=== PATIENT | female | born 1995 | race Caucasian/White ===

== ENCOUNTER → 2017-12-04 20:13 | Outpatient (REF) | payer OTHER, SELFPAY | LOC: LAB 20:13 | PROVIDERS: Visit Provider Nurse Practitioner Family ==

== ENCOUNTER → 2018-01-20 08:54 | Outpatient (CLI) | payer OTHER, SELFPAY ==
[2018-01-20 09:25] LABS: Basophils % 0.3 % (0.1-2.0); Eosinophils # 0.1 K/mm3 (0.0-0.4); Eosinophils % 1.3 % (0.1-12.0); Hematocrit 41.1 % (37.0-47.0); Hemoglobin 13.7 g/dL (12.2-16.2); Lymphocytes # 2.5 K/mm3 (0.7-4.5); Lymphocytes % 36.1 K/mm3 (10-50); Mean Corpuscular HGB Conc 33.4 g/dL (31.8-35.4); Mean Corpuscular Hemoglobin 29.4 pg (27.0-31.2); Mean Corpuscular Volume 87.9 fl (81-99); Mean Platelet Volume 8.8 fl (7.4-10.4); Monocytes # 0.4 K/mm3 (0.1-1.0); Monocytes % 5.9 % (1.7-9.3); Neutrophils % 56.5 % (37.0-80.0); Platelet Count 247 K/mm3 (142-424); Red Blood Count 4.67 M/mm3 (4.20-5.40); Red Cell Distribution Width 12.8 % (11.5-17.5)
[2018-01-20 10:21] LABS: HCG Qualitative, Serum Negative (Negative)
[2018-01-20 11:04] LABS: Alanine Aminotransferase 32 U/L (12-78); Albumin Level 3.8 gm/dL (3.4-5.0); Alkaline Phosphatase 80 U/L (46-116); Amylase 48 U/L (25-125); Anion Gap 12.3 mEq/L (5-15); Aspartate Amino Transferase 17 U/L (15-37); Bilirubin,Total 0.5 mg/dL (0.2-1.0); Blood Urea Nitrogen 8 mg/dL (7-18); Calcium 9.4 mg/dL (8.5-10.1); Carbon Dioxide 29 mmol/L (21.0-32.0); Chloride 101 mmol/L (98-107); Cholesterol 181 mg/dL (140-200); Creatinine,Serum 0.69 mg/dL (0.55-1.02); Estimated Glomerular Filt Rate 108 ml/min (>60); GFR (African American) 131 ML/MIN (>60); Globulin 3.7 gm/dl (1.3-3.2); Glucose 86 mg/dL (74-106); HDL Cholesterol 60 mg/dL (29-89); LDL Cholesterol 105 mg/dL (0-130); Lipase 96 u/L (73-393); Potassium 4.3 mmoL/L (3.5-5.1); Sodium 138 mmol/L (136-145); T4 (Thyroxine) 11.3 ug/dl (5.4-10.6); Thyroid Stimulating Hormone 2.03 uIU/ml (0.516-4.13); Total Protein,Serum 7.5 gm/dL (6.4-8.2); Triglycerides 79 mg/dL (30-200); VLDL Cholesterol 16 mg/dL (0-40)
[2018-01-21 15:48] LABS: Vitamin D 25 Hydroxy 37.8 ng/mL (30.0-100.0)
[2018-01-22 15:33] LABS: H. pylori Breath Test Negative (Negative)
== END ==
PROVIDERS: PCP Physician Assistant; Visit Provider Physician Assistant
DX: R10.13 Epigastric pain (principal)
CPT/HCPCS: 36415; 80053; 80061; 82150; 82652; 83013; 83690; 84436; 84443; 84703; 85025

== ENCOUNTER → 2018-04-13 08:53 | Outpatient (REF) | payer OTHER, SELFPAY ==
[2018-04-13 14:08] LABS: Basophils % 0.3 % (0.1-2.0); Eosinophils # 0.1 K/mm3 (0.0-0.4); Eosinophils % 1.3 % (0.1-12.0); Hematocrit 42.8 % (37.0-47.0); Hemoglobin 13.8 g/dL (12.2-16.2); Lymphocytes # 1.3 K/mm3 (0.7-4.5); Lymphocytes % 22.3 K/mm3 (10-50); Mean Corpuscular HGB Conc 32.2 g/dL (31.8-35.4); Mean Corpuscular Hemoglobin 27.5 pg (27.0-31.2); Mean Corpuscular Volume 85.5 fl (81-99); Mean Platelet Volume 9.4 fl (7.4-10.4); Monocytes # 0.2 K/mm3 (0.1-1.0); Neutrophils # 4.1 K/mm3 (1.8-7.8); Platelet Count 222 K/mm3 (142-424); Red Cell Distribution Width 13.5 % (11.5-17.5); White Blood Count 5.7 K/mm3 (4.5-13.0)
[2018-04-13 14:22] LABS: Alanine Aminotransferase 33 U/L (12-78); Albumin Level 3.7 gm/dL (3.4-5.0); Albumin/Globulin Ratio 0.9 (1.1-1.8); Alkaline Phosphatase 73 U/L (46-116); Anion Gap 15.9 mEq/L (5-15); Aspartate Amino Transferase 20 U/L (15-37); Bilirubin,Total 0.4 mg/dL (0.2-1.0); Blood Urea Nitrogen 11 mg/dL (7-18); Calcium 9.5 mg/dL (8.5-10.1); Carbon Dioxide 24 mmol/L (21.0-32.0); Chloride 104 mmol/L (98-107); Chol/HDL Ratio 4.1 (1-3.5); Cholesterol 183 mg/dL (140-200); Creatinine,Serum 0.75 mg/dL (0.55-1.02); Estimated Glomerular Filt Rate 99 ml/min (>60); GFR (African American) 119 ML/MIN (>60); Globulin 4.1 gm/dl (1.3-3.2); Glucose 75 mg/dL (74-106); HDL Cholesterol 45 mg/dL (29-89); LDL Cholesterol 117 mg/dL (0-130); Potassium 3.9 mmoL/L (3.5-5.1); Sodium 140 mmol/L (136-145); T4 (Thyroxine) 13.1 ug/dl (5.4-10.6); Thyroid Stimulating Hormone 2.25 uIU/ml (0.516-4.13); Total Protein,Serum 7.8 gm/dL (6.4-8.2); Triglycerides 106 mg/dL (30-200); VLDL Cholesterol 21 mg/dL (0-40)
[2018-04-14 12:51] LABS: Vitamin D 25 Hydroxy 46.7 ng/mL (30.0-100.0)
== END ==
LOC: LAB 08:53
PROVIDERS: Visit Provider Physician Assistant
DX: N89.8 Other specified noninflammatory disorders of vagina (principal); R35.0 Frequency of micturition
CPT/HCPCS: 80053; 80061; 82652; 84436; 84443; 85025; 87086

== ENCOUNTER → 2018-04-16 13:34 | Outpatient (REF) | payer OTHER, SELFPAY | LOC: LAB 13:34 | PROVIDERS: Visit Provider Physician Assistant | DX: R30.0 Dysuria (principal) | CPT/HCPCS: 87086; 87186 ==

== ENCOUNTER → 2018-04-16 13:50 | Outpatient (CLI) | payer OTHER, SELFPAY | PROVIDERS: Visit Provider Physician Assistant | DX: R30.0 Dysuria (principal) ==

== ENCOUNTER 2018-06-19 14:00 | Outpatient (RCR) | payer OTHER, SELFPAY | END 2018-06-19 14:01 | disposition home or self-care (01) | LOC: PT 14:00 | PROVIDERS: PCP Physician Assistant; Visit Provider Nurse Practitioner Family | DX: M25.571 Pain in right ankle and joints of right foot (principal); M25.572 Pain in left ankle and joints of left foot | CPT/HCPCS: 97010; 97014; 97033; 97035; 97110; 97140; 97163; G0283 ==

== ENCOUNTER → 2018-06-22 10:47 | Outpatient (REF) | payer OTHER, SELFPAY ==
[2018-06-22 14:12] LABS: Alanine Aminotransferase 35 U/L (12-78); Albumin Level 3.7 gm/dL (3.4-5.0); Alkaline Phosphatase 71 U/L (46-116); Anion Gap 12.1 mEq/L (5-15); Aspartate Amino Transferase 13 U/L (15-37); Bilirubin,Total 0.5 mg/dL (0.2-1.0); Blood Urea Nitrogen 8 mg/dL (7-18); C-Reactive Protein 1.4 mg/L (0.0-0.9); Calcium 9.1 mg/dL (8.5-10.1); Carbon Dioxide 29 mmol/L (21.0-32.0); Chloride 105 mmol/L (98-107); Creatinine,Serum 0.72 mg/dL (0.55-1.02); Estimated Glomerular Filt Rate 103 ml/min (>60); GFR (African American) 125 ML/MIN (>60); Globulin 3.7 gm/dl (1.3-3.2); Glucose 84 mg/dL (74-106); Potassium 4.1 mmoL/L (3.5-5.1); Sodium 142 mmol/L (136-145); Total Protein,Serum 7.4 gm/dL (6.4-8.2)
[2018-06-22 14:18] LABS: Basophils % 0.3 % (0.1-2.0); Eosinophils % 0.6 % (0.1-12.0); Hematocrit 39.6 % (37.0-47.0); Hemoglobin 13.2 g/dL (12.2-16.2); Lymphocytes % 15.9 K/mm3 (10-50); Mean Corpuscular HGB Conc 33.4 g/dL (31.8-35.4); Mean Corpuscular Hemoglobin 29.1 pg (27.0-31.2); Mean Corpuscular Volume 87.1 fl (81-99); Mean Platelet Volume 8.8 fl (7.4-10.4); Monocytes # 0.3 K/mm3 (0.1-1.0); Neutrophils # 5.1 K/mm3 (1.8-7.8); Neutrophils % 79.1 % (37.0-80.0); Platelet Count 231 K/mm3 (142-424); Red Blood Count 4.55 M/mm3 (4.20-5.40); White Blood Count 6.5 K/mm3 (4.5-13.0)
[2018-06-22 15:12] LABS: Erythrocyte Sedimentation Rate 30 mm/hr (0-20)
[2018-06-24 13:22] LABS: Anti-Jo-1 <0.2 AI (0.0-0.9); Anti-Smith Antibody <0.2 AI (0.0-0.9); Antichromatin Antibodies <0.2 AI (0.0-0.9); Antiscleroderma-70 Antibodies <0.2 AI (0.0-0.9); RNP Antibodies <0.2 AI (0.0-0.9); Sjogren's Anti-SS-A <0.2 AI (0.0-0.9); Sjogren's Anti-SS-B <0.2 AI (0.0-0.9)
[2018-06-24 14:52] LABS: Anti-Centromere B Antibodies <0.2 AI (0.0-0.9); Anti-DNA (DS) Ab Qn 1 IU/mL (0-9); RA Latex Turbid. <10.0 IU/mL (0.0-13.9)
[2018-06-25 06:40] LABS: Anti-Cyclic Citrullinated Pept 7 units (0-19)
== END ==
LOC: LAB 10:47
PROVIDERS: Visit Provider Physician Assistant
DX: M25.571 Pain in right ankle and joints of right foot (principal); M25.572 Pain in left ankle and joints of left foot; J02.9 Acute pharyngitis, unspecified
CPT/HCPCS: 80053; 85025; 85651; 86140; 86200; 86225; 86235; 86431

== ENCOUNTER → 2018-09-07 09:21 | Outpatient (CLI) | payer OTHER, SELFPAY ==
--- NOTE | 2018-09-07 09:23 | XR_ITS ---
XR ankle wt bearing RT min 3V HISTORY: ITS.REASON: pain and swelling ORDERING PHYSICIAN: Odilia Parker DPM PATIENT AGE: 22 years Comparison: 05/15/2018 FINDINGS: No fracture or dislocation. No lytic or blastic change. There is normal mineralization.. The joint spaces are well-preserved. No significant degenerative/arthritic changes. No erosive changes evident. IMPRESSION: Negative ankle, no acute finding
--- NOTE | 2018-09-07 09:23 | XR_ITS ---
XR ankle wt bearing LT min 3V HISTORY: ITS.REASON: pain and swelling ORDERING PHYSICIAN: Odilia Parker DPM PATIENT AGE: 22 years Comparison: None FINDINGS: No fracture or dislocation. No lytic or blastic change. There is normal mineralization.. The joint spaces are well-preserved. No significant degenerative/arthritic changes. No erosive changes evident. IMPRESSION: Negative ankle, no acute finding
--- NOTE | 2018-09-07 09:23 | XR_ITS ---
XR foot wt bearing LT 3V HISTORY: Pain and swelling ITS.REASON: pain ORDERING PHYSICIAN: Odilia Parker DPM PATIENT AGE: 22 years COMPARISON: None FINDINGS: No fracture or dislocation. No lytic or blastic change. There is normal mineralization.. The joint spaces are well-preserved. No significant degenerative/arthritic changes. No erosive changes evident. IMPRESSION: Negative, no acute finding
--- NOTE | 2018-09-07 09:23 | XR_ITS ---
XR foot wt bearing RT 3V HISTORY: Foot pain ITS.REASON: pain ORDERING PHYSICIAN: Odilia Parker DPM PATIENT AGE: 22 years FINDINGS: No fracture or dislocation. No lytic or blastic change. There is normal mineralization.. The joint spaces are well-preserved. No significant degenerative/arthritic changes. No erosive changes evident. IMPRESSION: Negative, no acute finding
== END ==
PROVIDERS: PCP Physician Assistant; Visit Provider Podiatrist
DX: M25.571 Pain in right ankle and joints of right foot (principal); M25.572 Pain in left ankle and joints of left foot
CPT/HCPCS: 73610; 73630

== ENCOUNTER → 2018-09-24 08:27 | Outpatient (CLI) | payer OTHER, SELFPAY ==
--- NOTE | 2018-09-24 08:29 | MR_ITS ---
MR ankle RT wo/w con CLINICAL INDICATION: Right ankle pain with burning around the malleoli with difficulty ambulating ITS.REASON: ankle instability ORDERING PHYSICIAN: Odilia Parker DPM PATIENT AGE: 22 years Comparison: 09/07/2018 TECHNIQUE: Routine multiplanar multi echo sequences performed without and with contrast FINDINGS: There is normal bone marrow signal intensity. No evidence of fracture. The talar dome has an unremarkable appearance. No significant joint effusion. The tendons about the ankle have an unremarkable appearance. The anterior and posterior talofibular ligaments are somewhat thickened with slight increase in T2 signal. The remaining ligaments of the ankle have an unremarkable appearance. IMPRESSION: 1. Mild thickening of the anterior talofibular and posterior talofibular ligaments with slight increase in T2 signal which may indicate ligamentous sprain. A definite tear is not identified. 2. Otherwise negative MRI of the right ankle
--- NOTE | 2018-09-24 08:29 | MR_ITS ---
MR ankle LT wo/w con CLINICAL INDICATION: Pain and instability ITS.REASON: ankle instability ORDERING PHYSICIAN: Odilia Parker DPM PATIENT AGE: 22 years Comparison: None TECHNIQUE: Multiplanar multiecho sequences are performed without and with contrast FINDINGS: No fracture or dislocation. Normal bone marrow signal intensity. There is slight increased T2 signal of the posterior talofibular ligament which may be due to partial tear or sprain. The ATFL has an unremarkable appearance. A small amount of fluid is present at the tibiofibular region at the talofibular ligaments. The other ligaments and tendons have an unremarkable appearance. There is a small loculated fluid collection along the anterolateral aspect of the navicular measuring 18 x 8 mm. This may represent a ganglion cyst. Very near the extensor digitorum longus tendon. A small fluid collection is also present along the anterior aspect of the navicular could represent small ganglionic cyst of the extensor hallucis longus tendon. There is increased T2 signal involving the lateral aspect of the middle and anterior subtalar joint with some nonspecific enhancement of the soft tissues at this region and slightly lateral to this area.. 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 No other significant abnormalities are evident. No enhancing lesions are apparent IMPRESSION: 1. Findings suggestive of sinus Tarsi syndrome. Please correlate with appropriate clinical findings. 2. Sprain versus partial tear of the posterior talofibular ligament 3. Possible ganglion cysts of the extensor digitorum longus and possibly of the extensor hallucis longus at the region of the navicular
== END ==
PROVIDERS: PCP Physician Assistant; Visit Provider Podiatrist
DX: M25.371 Other instability, right ankle (principal); M25.372 Other instability, left ankle; M25.571 Pain in right ankle and joints of right foot; M76.821 Posterior tibial tendinitis, right leg; M76.822 Posterior tibial tendinitis, left leg
CPT/HCPCS: 73223; 73723; A9576

== ENCOUNTER → 2018-10-12 09:40 | Outpatient (CLI) | payer OTHER, SELFPAY ==
--- NOTE | 2018-10-12 09:41 | FL_ITS ---
OR upper GI small bowel Ordering Physician: Srinath Monk MD Patient Age: 23 years: Female HISTORY: ITS.REASON: Postprandial nausea Nausea following meals last 20 minutes. This is occurred the past 2 months. TECHNIQUE: Air contrast technique utilized. Suggestion of barium evaluation the esophagus stomach pylorus and duodenal and small bowel performed by Dr. Kang. Total Fluoroscopy 4 minute 30 seconds COMPARISON :No previous UGI. There is a ultrasound upper quadrant from April 2017. UGI Esophagus appears normal. No hiatal hernia. Slightly generous, patulous GE junction noted but no definitive reflux was observed Stomach appears satisfactory. Normal mucosal pattern normal distensibility. However there is slow gastric emptying. The duodenal bulb appears normal. Antrum appears normal. I saw no scarring or evidence of old ulcer disease at the pylorus to account for a stricture or obstruction but there was slow gastric emptying. Initially the stomach. Empty and these regions appeared more distensible thereafter. The duodenal loop appears satisfactory with upper normal mucosal pattern. Cholecystectomy clips are seen just superior to the duodenal bulb SMALL BOWEL FOLLOW-THROUGH Small bowel appears normal caliber. Normal feathery mucosal pattern at the duodenum. Ileum appears normal as well.The terminal ileum spot views unremarkable. IMPRESSION: 1. Esophagus satisfactory no lesions or ulcers of UGI. 2. We did observe some some delay of gastric emptying.. But thereafter normal appearance Eventually after slightly prolonged time it did begin to empty. & Once robust gastric emptying occurred there did seem to be Normal distensibility of antrum, pylorus, duodenal bulb and loop. ( No scarring from previous ulcer disease identified at pylorus nor duodenal bulb.) 3.. Normal small bowel study. Normal terminal ileum
== END ==
PROVIDERS: PCP Physician Assistant; Visit Provider Surgery
DX: R11.0 Nausea (principal)
CPT/HCPCS: 74245

== ENCOUNTER → 2018-10-16 09:47 | Outpatient (CLI) | payer OTHER, SELFPAY ==
--- NOTE | 2018-10-16 09:51 | NM_ITS ---
NM gastric emptying study CLINICAL INDICATION: ITS.REASON: Postprandial nausea ORDERING PHYSICIAN: Srinath Monk MD PATIENT AGE: 23 years Comparison: None DOSE: 0.517 mCi technetium sulfur colloid with radiolabeled meal FINDINGS: One half emptying time is within normal limits at 77 minutes. Normally 60 +/- 30 minutes. 59% the contents had emptied at 89 minutes. Images submitted show no obvious reflux. IMPRESSION: Normal gastric emptying time
== END ==
PROVIDERS: PCP Physician Assistant; Visit Provider Surgery
DX: R11.0 Nausea (principal)
CPT/HCPCS: 78264; A9541

== ENCOUNTER → 2018-11-10 15:13 | Outpatient (CLI) | payer OTHER, SELFPAY ==
[2018-11-10 15:17] LABS: Microscopic, Urine URINE MICROSCOPIC (MICROSCOPIC)
[2018-11-10 15:41] LABS: Basophils % 0.4 % (0.1-2.0); Eosinophils # 0.1 K/mm3 (0.0-0.4); Eosinophils % 1.2 % (0.1-12.0); Hematocrit 43.1 % (37.0-47.0); Lymphocytes # 1.7 K/mm3 (0.7-4.5); Lymphocytes % 23.2 % (10-50); Mean Corpuscular HGB Conc 32.4 g/dL (31.8-35.4); Mean Corpuscular Hemoglobin 29.1 pg (27.0-31.2); Mean Corpuscular Volume 89.7 fl (81-99); Mean Platelet Volume 7.9 fl (7.4-10.4); Monocytes # 0.4 K/mm3 (0.1-1.0); Monocytes % 4.9 % (1.7-9.3); Neutrophils # 5.2 K/mm3 (1.8-7.8); Neutrophils % 70.4 % (37.0-80.0); Platelet Count 244 K/mm3 (142-424); Red Blood Count 4.81 M/mm3 (4.20-5.40); Red Cell Distribution Width 14.2 % (11.5-17.5); White Blood Count 7.3 K/mm3 (4.8-10.8)
[2018-11-10 15:44] LABS: Appearance,Urine CLEAR (Clear); Bilirubin,Urine Negative (Negative); Blood, Urine Negative (Negative); Color,Urine STRAW (Yellow); Glucose,Urine (UA) Negative (Negative); Ketones,Urine Negative (Negative); Leukocyte Esterase,Urine Negative (Negative); Nitrate,Urine Negative (Negative); Protein,Urine Negative (Negative); Urobilinogen,Urine 0.2 EU/dl (0.2)
[2018-11-10 16:04] LABS: Bacteria,Urine Trace /lpf; RBC,Urine Occasional #/hpf (0-3); WBC,Urine Occasional #/hpf (0-3)
[2018-11-10 16:25] LABS: Anion Gap 14.1 mEq/L (5-15); Blood Urea Nitrogen 11 mg/dL (7-18); Calcium 9.4 mg/dL (8.5-10.1); Carbon Dioxide 26 mmol/L (21.0-32.0); Chloride 103 mmol/L (98-107); Creatinine,Serum 0.76 mg/dL (0.55-1.02); Estimated Glomerular Filt Rate 96 ml/min (>60); GFR (African American) 116 ML/MIN (>60); Glucose 87 mg/dL (74-106); HCG,Quantitative 0 mIU/mL; Potassium 4.1 mmoL/L (3.5-5.1); Sodium 139 mmol/L (136-145)
== END ==
PROVIDERS: Visit Provider Surgery
DX: Z01.818 Encounter for other preprocedural examination (principal)
CPT/HCPCS: 36415; 80048; 81001; 84702; 85025

== ENCOUNTER → 2018-11-26 13:09 | Outpatient (CLI) | payer OTHER, SELFPAY ==
--- NOTE | 2018-11-26 13:15 | XR_ITS ---
XR foot wt bearing LT 3V HISTORY: Follow-up surgery ITS.REASON: post-op ORDERING PHYSICIAN: Odilia Parker DPM PATIENT AGE: 23 years COMPARISON: 11/13/2018 FINDINGS: Status post arthrodesis of the talocalcaneal joint. Posterior splint remains in place. There remains good alignment with no significant change. IMPRESSION: No change status post talocalcaneal arthrodesis
== END ==
PROVIDERS: PCP Physician Assistant; Visit Provider Podiatrist
DX: Z98.890 Other specified postprocedural states (principal)
CPT/HCPCS: 73630

== ENCOUNTER → 2018-11-30 12:37 | Outpatient (CLI) | payer OTHER, SELFPAY ==
--- NOTE | 2018-11-30 12:42 | XR_ITS ---
XR ankle LT 2V HISTORY: Injury with pain, prior fusion ITS.REASON: pain ORDERING PHYSICIAN: Odilia Parker DPM PATIENT AGE: 23 years Comparison: 11/26/2018 FINDINGS: There has been prior talocalcaneal arthrodesis. Only an AP view is obtained. The ankle mortise is intact. There is some debris along the lateral aspect of the calcaneus. The hardware appears intact. IMPRESSION: Good alignment on the AP view with hardware intact
--- NOTE | 2018-11-30 12:42 | XR_ITS ---
XR foot wt bearing LT 3V HISTORY: Post traumatic pain ITS.REASON: pain ORDERING PHYSICIAN: Odilia Parker DPM PATIENT AGE: 23 years COMPARISON: 11/26/2018 FINDINGS: The casted been removed. There has been prior talocalcaneal arthrodesis. The pins/screws remain in place. There is good alignment. IMPRESSION: No change status post talocalcaneal arthrodesis
== END ==
PROVIDERS: PCP Physician Assistant; Visit Provider Podiatrist
DX: Z98.890 Other specified postprocedural states (principal)
CPT/HCPCS: 73600; 73630

== ENCOUNTER → 2018-12-17 10:22 | Outpatient (CLI) | payer OTHER, SELFPAY ==
--- NOTE | 2018-12-17 10:26 | XR_ITS ---
XR foot wt bearing LT 3V HISTORY: Follow-up surgery ITS.REASON: Post-op ORDERING PHYSICIAN: Odilia Parker DPM PATIENT AGE: 23 years COMPARISON: 11/30/2018 FINDINGS: Status post talocalcaneal arthrodesis. No change in the 3 stabilizing the calcaneus and talus as previously described. There is good alignment. IMPRESSION: No change status post talocalcaneal
== END ==
PROVIDERS: PCP Physician Assistant; Visit Provider Podiatrist
DX: Z98.890 Other specified postprocedural states (principal)
CPT/HCPCS: 73630

== ENCOUNTER → 2019-01-14 14:51 | Outpatient (CLI) | payer OTHER, SELFPAY ==
--- NOTE | 2019-01-14 14:54 | XR_ITS ---
XR foot wt bearing LT 3V HISTORY: ITS.REASON: post-op ORDERING PHYSICIAN: Odilia Parker DPM PATIENT AGE: 23 years COMPARISON: 12/17/2018 FINDINGS: No change status post hindfoot fusion with 2 lag screws extending from the posterior inferior calcaneus into the talus and additional hyperextending from the neck of the talus into the neck of the calcaneus. Normal alignment. IMPRESSION: No change hindfoot arthrodesis
== END ==
PROVIDERS: PCP Physician Assistant; Visit Provider Podiatrist
DX: Z98.890 Other specified postprocedural states (principal); M79.672 Pain in left foot
CPT/HCPCS: 73630

== ENCOUNTER 2019-01-15 14:00 | Outpatient (RCR) | payer OTHER, SELFPAY ==
--- NOTE | 2018-12-28 10:39 | HMH.PTOPEV ---
PT Outpatient Evaluation Rehab PT Outpatient Evaluation Start: 12/28/18 09:39 Freq: Status: Active Protocol: Document 12/28/18 10:24 ANUSHA (Rec: 12/28/18 10:35 PHOGLENN [id number]) Electronically Signed By Nael Gomez, PT 12/28/18 10:24 Outpatient Therapy Subjective History Subjective History Pt is a 23 yowf s/p left foot/ ankle surgery on 11/13/18. Pt reports feeling no pain after surgery. Pt states feeling numbness and some tingling in her great toe of left foot. Pt is PWB at the moment. Pt has been in a boot since surgery. Pt denies comorbidities and reports having tonsils removed , gallbladder removed and upper GI surgery. Chief Complaint Stiff Weakness Prior Functional Limitations Standing Walking Stairs Balance Current Functional Limitations Standing Walking Stairs Balance Symptom Description Activity Dependent Level of pain today (0-10) 0 Pain scale - at its best (0-10) 0 Pain scale - at its worst (0-10) 0 Ankle/Foot Eval Gait Observation General Gait Pattern Observation No Deviations/Normal Decrease Weight Bear (L) Assistive Device Ambulation Assistive Device Axillary Crutches Palpation Tenderness left Ankle/Foot Palpation Findings None/Normal Ankle/Foot Palpation Overall Comment No pain or tenderness throughout foot/ankle ROM Ankle/Foot Dorsiflexion w/Knee Flexed 10 Active Range of Motion (degrees) Ankle/Foot Plantar Flexion Active Range 40 of Motion (degrees) Ankle/Foot Eversion Active Range of 4 Motion (degrees) Ankle/Foot Inversion Active Range of 3 Motion (degrees) Ankle/Foot ROM Limitations Soft Tissue Tightness Great Toe ROM Reason Not Measured Within Functional Limits MMT Ankle Dorsiflexion Strength Grade 4- Good- Ankle Plantarflexion Strength Grade 4- Good- Foot Eversion Strength Grade 3+ Fair+ Foot Inversion Strength Grade 3+ Fair+ Ankle Dorsiflexors Muscle Tone Normal Description Outpatient Therapy Assessment Impairments Problems/Impairmments Impaired Range of Motion Impaired Strength Impaired Gait Pattern Impaired
== END 2019-01-15 14:05 | disposition home or self-care (01) ==
LOC: PT 14:00
PROVIDERS: Visit Provider Podiatrist
DX: Z98.890 Other specified postprocedural states (principal); Q66.89 Other specified congenital deformities of feet
CPT/HCPCS: 97010; 97014; 97016; 97033; 97035; 97110; 97140; 97163; G0283

== ENCOUNTER → 2019-01-26 11:01 | Outpatient (CLI) | payer OTHER, SELFPAY ==
[2019-01-26 14:43] LABS: Basophils % 0.3 % (0.1-2.0); Eosinophils # 0.1 K/mm3 (0.0-0.4); Eosinophils % 1.9 % (0.1-12.0); Hematocrit 41.4 % (37.0-47.0); Hemoglobin 13.8 g/dL (12.2-16.2); Lymphocytes # 1.5 K/mm3 (0.7-4.5); Lymphocytes % 24.6 % (10-50); Mean Corpuscular HGB Conc 33.5 g/dL (31.8-35.4); Mean Corpuscular Hemoglobin 29.5 pg (27.0-31.2); Mean Corpuscular Volume 88.1 fl (81-99); Mean Platelet Volume 8.6 fl (7.4-10.4); Monocytes # 0.3 K/mm3 (0.1-1.0); Monocytes % 4.5 % (1.7-9.3); Neutrophils # 4.2 K/mm3 (1.8-7.8); Neutrophils % 68.8 % (37.0-80.0); Platelet Count 257 K/mm3 (142-424); Red Blood Count 4.69 M/mm3 (4.20-5.40); Red Cell Distribution Width 13.7 % (11.5-17.5); White Blood Count 6.1 K/mm3 (4.8-10.8)
[2019-01-26 14:52] LABS: Alanine Aminotransferase 27 U/L (12-78); Albumin Level 3.8 gm/dL (3.4-5.0); Alkaline Phosphatase 103 U/L (46-116); Anion Gap 12.6 mEq/L (5-15); Aspartate Amino Transferase 13 U/L (15-37); Bilirubin,Total 0.4 mg/dL (0.2-1.0); Blood Urea Nitrogen 8 mg/dL (7-18); Calcium 9.4 mg/dL (8.5-10.1); Carbon Dioxide 32 mmol/L (21.0-32.0); Chloride 102 mmol/L (98-107); Chol/HDL Ratio 2.9 (1-3.5); Cholesterol 166 mg/dL (140-200); Creatinine,Serum 0.85 mg/dL (0.55-1.02); Estimated Glomerular Filt Rate 84 ml/min (>60); GFR (African American) 102 ML/MIN (>60); Globulin 3.8 gm/dl (1.3-3.2); Glucose 73 mg/dL (74-106); HDL Cholesterol 57 mg/dL (29-89); LDL Cholesterol 97 mg/dL (0-130); Potassium 4.6 mmoL/L (3.5-5.1); Sodium 142 mmol/L (136-145); T4 (Thyroxine) 8.5 ug/dl (4.7-13.3); Thyroid Stimulating Hormone 1.76 uIU/ml (0.358-3.740); Total Protein,Serum 7.6 gm/dL (6.4-8.2); Triglycerides 58 mg/dL (30-200); VLDL Cholesterol 12 mg/dL (0-40)
[2019-01-27 14:12] LABS: Vitamin D 25 Hydroxy 35.3 ng/mL (30.0-100.0)
== END ==
PROVIDERS: Visit Provider Physician Assistant
DX: N89.8 Other specified noninflammatory disorders of vagina (principal); Z01.419 Encounter for gynecological examination (general) (routine) without abnormal findings
CPT/HCPCS: 80053; 80061; 82652; 84436; 84443; 85025; 87210

== ENCOUNTER → 2019-01-26 13:44 | Outpatient (CLI) | payer OTHER, SELFPAY | PROVIDERS: Visit Provider Physician Assistant | DX: R63.5 Abnormal weight gain (principal) | CPT/HCPCS: 80053; 80061; 82652; 84436; 84443; 85025 ==

== ENCOUNTER → 2019-02-04 14:06 | Outpatient (CLI) | payer OTHER, SELFPAY ==
--- NOTE | 2019-02-04 14:09 | XR_ITS ---
XR calcaneus LT min 2V CLINICAL INDICATION: Follow-up surgery ITS.REASON: post-op ORDERING PHYSICIAN: Odilia Parker DPM PATIENT AGE: 23 years Comparison: None FINDINGS: 2 screws are present from the posterior and inferior surface of the calcaneus into the talus and one screw from the talar neck into the neck of the calcaneus. This latter screw extends somewhat medial to the calcaneus on the AP view. IMPRESSION: Status post talocalcaneal fusion as described above.
--- NOTE | 2019-02-04 14:09 | XR_ITS ---
XR foot wt bearing LT 3V HISTORY: ITS.REASON: post-op ORDERING PHYSICIAN: Odilia Parker DPM PATIENT AGE: 23 years COMPARISON: 01/14/2019 FINDINGS: Status post fusion of the talocalcaneal joint with 2 screws from the posterior calcaneus into the talus and one screw from the neck of the talus into the neck of the calcaneus. There remains good alignment. No significant change. IMPRESSION: Good alignment status post talocalcaneal fusion
--- NOTE | 2019-02-04 15:33 | XR_ITS ---
XR foot wt bearing RT 3V HISTORY: ITS.REASON: pain ORDERING PHYSICIAN: Odilia Parker DPM PATIENT AGE: 23 years COMPARISON: None FINDINGS: No fracture or dislocation. No lytic or blastic change. There is normal mineralization.. The joint spaces are well-preserved. No significant degenerative/arthritic changes. No erosive changes evident. IMPRESSION: Negative, no acute finding
== END ==
PROVIDERS: PCP Physician Assistant; Visit Provider Podiatrist
DX: Z98.890 Other specified postprocedural states (principal); M79.672 Pain in left foot
CPT/HCPCS: 73630; 73650

== ENCOUNTER → 2019-02-23 13:43 | Outpatient (CLI) | payer OTHER, SELFPAY ==
--- NOTE | 2019-02-23 13:47 | XR_ITS ---
XR foot wt bearing LT 3V HISTORY: Follow-up surgery, pain ITS.REASON: Post-op ORDERING PHYSICIAN: Odilia Parker DPM PATIENT AGE: 23 years COMPARISON: 02/04/2019 FINDINGS: Status post halo calcaneal fusion with 2 screws directed from the inferior aspect of the calcaneus into the talus through the posterior subtalar joint. There is an additional screw directed from the talar neck into the calcaneus at the mid subtalar region. There remains good alignment. IMPRESSION: No acute finding. Good alignment status post talocalcaneal fusion
== END ==
PROVIDERS: PCP Physician Assistant; Visit Provider Podiatrist
DX: Z98.890 Other specified postprocedural states (principal)
CPT/HCPCS: 73630

== ENCOUNTER → 2019-03-17 07:49 | Outpatient (CLI) | payer OTHER, SELFPAY ==
--- NOTE | 2019-03-17 08:03 | US_ITS ---
US transvaginal HISTORY: A menorrhea, pelvic pain ITS.REASON: US T/V- Pelvic Pain ORDERING PHYSICIAN: Juani Ware MD PATIENT AGE: 23 years Comparison: None FINDINGS: The uterus is 7.4 x 3.2 x 5 cm with a combined endometrial thickness of 7 mm. There are multiple small cystic areas along the lower uterine segment and may be due to prominent nabothian cysts. The right ovary measures 4 x 2 cm containing small follicles. The left ovary measures 3.6 x 1.9 cm also containing small follicles. No cul-de-sac fluid. IMPRESSION: 1. There are multiple small cystic areas along the lower uterine segment and may be related to prominent nabothian cyst 2. Otherwise negative pelvic ultrasound
== END ==
PROVIDERS: PCP Physician Assistant; Visit Provider Obstetrics & Gynecology
DX: R10.2 Pelvic and perineal pain (principal); N92.6 Irregular menstruation, unspecified
CPT/HCPCS: 76830

== ENCOUNTER → 2019-04-06 13:07 | Outpatient (CLI) | payer OTHER, SELFPAY ==
[2019-04-06 16:19] LABS: Thyroid Stimulating Hormone 2.18 uIU/ml (0.358-3.740)
[2019-04-09 17:46] LABS: Progesterone 0.3 ng/mL (.)
== END ==
PROVIDERS: Visit Provider Obstetrics & Gynecology
DX: N97.9 Female infertility, unspecified (principal); R63.5 Abnormal weight gain
CPT/HCPCS: 84144; 84443

== ENCOUNTER → 2019-04-12 13:45 | Outpatient (CLI) | payer OTHER, SELFPAY ==
--- NOTE | 2019-04-12 13:57 | XR_ITS ---
XR foot wt bearing RT 3V HISTORY: Pain ITS.REASON: Evaluation ORDERING PHYSICIAN: Odilia Parker DPM PATIENT AGE: 23 years COMPARISON: 02/04/2019 FINDINGS: No fracture or dislocation. No lytic or blastic change. There is normal mineralization.. The joint spaces are well-preserved. No significant degenerative/arthritic changes. No erosive changes evident. IMPRESSION: Negative, no acute finding
--- NOTE | 2019-04-12 13:57 | XR_ITS ---
XR ankle wt bearing RT min 3V HISTORY: Pain ITS.REASON: evaluation ORDERING PHYSICIAN: Odilia Parker DPM PATIENT AGE: 23 years Comparison: None FINDINGS: No fracture or dislocation. No lytic or blastic change. There is normal mineralization.. The joint spaces are well-preserved. No significant degenerative/arthritic changes. No erosive changes evident. IMPRESSION: Negative ankle, no acute finding
--- NOTE | 2019-04-12 13:57 | XR_ITS ---
XR foot wt bearing LT 3V HISTORY: Pain ITS.REASON: Evaluation ORDERING PHYSICIAN: Odilia Parker DPM PATIENT AGE: 23 years COMPARISON: 02/23/2019 FINDINGS: Good alignment status post talocalcaneal fusion. No significant change from the previous exam. There is mild prominence of the space at the first intermetatarsal joint proximally. The alignment however of the second metatarsal and mid cuneiform is maintained. IMPRESSION: No change status post talocalcaneal fusion with good alignment
[2019-04-12 14:50] LABS: Urine Pregnancy, HCG Qual. Negative (Negative)
[2019-04-12 14:52] LABS: Basophils % 0.4 % (0.1-2.0); Eosinophils # 0.1 K/mm3 (0.0-0.4); Eosinophils % 0.8 % (0.1-12.0); Hematocrit 39.5 % (37.0-47.0); Hemoglobin 13.1 g/dL (12.2-16.2); Lymphocytes # 1.5 K/mm3 (0.7-4.5); Lymphocytes % 20.2 % (10-50); Mean Corpuscular Hemoglobin 27.7 pg (27.0-31.2); Mean Platelet Volume 8.5 fl (7.4-10.4); Monocytes # 0.5 K/mm3 (0.1-1.0); Monocytes % 6.1 % (1.7-9.3); Neutrophils # 5.5 K/mm3 (1.8-7.8); Neutrophils % 72.6 % (37.0-80.0); Platelet Count 226 K/mm3 (142-424); Red Blood Count 4.71 M/mm3 (4.20-5.40); Red Cell Distribution Width 13.2 % (11.5-17.5); White Blood Count 7.6 K/mm3 (4.8-10.8)
[2019-04-12 15:34] LABS: Anion Gap 11.9 mEq/L (5-15); Blood Urea Nitrogen 8 mg/dL (7-18); Calcium 9.2 mg/dL (8.5-10.1); Carbon Dioxide 29 mmol/L (21.0-32.0); Chloride 104 mmol/L (98-107); Estimated Glomerular Filt Rate 106 ml/min (>60); GFR (African American) 128 ML/MIN (>60); Glucose 81 mg/dL (74-106); Potassium 3.9 mmoL/L (3.5-5.1); Sodium 141 mmol/L (136-145)
== END ==
PROVIDERS: PCP Physician Assistant; Visit Provider Podiatrist
DX: M21.6X1 Other acquired deformities of right foot (principal); M25.371 Other instability, right ankle; M79.671 Pain in right foot; Q66.89 Other specified congenital deformities of feet
CPT/HCPCS: 36415; 73610; 73630; 80048; 81025; 85025

== ENCOUNTER → 2019-05-11 10:33 | Outpatient (CLI) | payer OTHER, SELFPAY ==
--- NOTE | 2019-05-11 10:36 | XR_ITS ---
XR ankle wt bearing RT min 3V HISTORY: Follow-up surgery/fracture ITS.REASON: postop views ORDERING PHYSICIAN: Odilia Parker DPM PATIENT AGE: 23 years Comparison: None FINDINGS: Posterior splint remains in place. Lateral bone plate of the distal fibula and 2 flat metallic buttons along the medial aspect of the distal tibia remain in place. Tibiofibular joint space appears intact. The ankle mortise does not appear widened however, there is some mild anterior subluxation of the talus. This is be positional. IMPRESSION: No change in the orthopedic hardware with unremarkable ankle mortise. There is some mild anterior subluxation of the talus.
== END ==
PROVIDERS: PCP Physician Assistant; Visit Provider Podiatrist
DX: Z98.890 Other specified postprocedural states (principal)
CPT/HCPCS: 73610

== ENCOUNTER → 2019-08-18 10:40 | Outpatient (CLI) | payer OTHER, SELFPAY ==
[2019-08-19 11:01] LABS: Progesterone 3.7 ng/mL (.)
== END ==
PROVIDERS: Visit Provider Obstetrics & Gynecology
DX: N97.0 Female infertility associated with anovulation (principal)
CPT/HCPCS: 36415; 84144

== ENCOUNTER → 2019-09-02 13:53 | Outpatient (CLI) | payer OTHER, SELFPAY ==
--- NOTE | 2019-09-02 13:55 | US_ITS ---
PROCEDURE: US TRANSVAGINAL CLINICAL INDICATION: US T/V- Pelvic pain on Clomid COMPARISON: TRANVAG US transvaginal from 03/17/2019 FINDINGS: UTERUS: 5.4 x 3.5 x 4.6 cm with a combined endometrial thickness of 6 mm. No uterine mass apparent LEFT OVARY: 3 x 1.4 cm. No adnexal mass. RIGHT OVARY: 3.4 x 1.6 cm. No adnexal mass Bilateral ovarian blood flow is present. No cul-de-sac fluid IMPRESSION: Unremarkable pelvic ultrasound Dictated by: Nicholas Lopez MD 09/02/2019 16:57 Electronically signed by Nicholas Lopez MD in [facility] 09/02/2019 16:57
== END ==
PROVIDERS: PCP Physician Assistant; Visit Provider Obstetrics & Gynecology
DX: R10.2 Pelvic and perineal pain (principal)
CPT/HCPCS: 76830

== ENCOUNTER → 2019-09-17 13:25 | Outpatient (CLI) | payer OTHER, SELFPAY ==
[2019-09-20 06:36] LABS: Progesterone 2.9 ng/mL (.)
== END ==
PROVIDERS: Visit Provider Obstetrics & Gynecology
DX: N97.0 Female infertility associated with anovulation (principal)
CPT/HCPCS: 36415; 84144

== ENCOUNTER → 2019-10-18 13:41 | Outpatient (CLI) | payer OTHER, SELFPAY ==
[2019-10-21 05:21] LABS: Progesterone 13.6 ng/mL (.)
== END ==
PROVIDERS: Visit Provider Obstetrics & Gynecology
DX: N97.0 Female infertility associated with anovulation (principal); R63.5 Abnormal weight gain
CPT/HCPCS: 36415; 84144

== ENCOUNTER → 2019-11-16 10:30 | Outpatient (CLI) | payer MEDICAID, SELFPAY ==
[2019-11-17 18:20] LABS: Progesterone 10.9 ng/mL (.)
== END ==
PROVIDERS: Visit Provider Obstetrics & Gynecology
DX: N97.0 Female infertility associated with anovulation (principal)
CPT/HCPCS: 36415; 84144

== ENCOUNTER → 2019-12-23 10:50 | Outpatient (CLI) | payer MEDICAID, SELFPAY ==
[2019-12-23 13:00] LABS: HCG,Quantitative 16 mIU/ml (0-5.42)
== END ==
PROVIDERS: Visit Provider Obstetrics & Gynecology
DX: Z32.00 Encounter for pregnancy test, result unknown (principal)
CPT/HCPCS: 36415; 84702

== ENCOUNTER → 2019-12-28 14:32 | Outpatient (CLI) | payer MEDICAID, SELFPAY ==
[2019-12-28 15:19] LABS: HCG,Quantitative 182 mIU/ml (0-5.42)
== END ==
PROVIDERS: Visit Provider Obstetrics & Gynecology
DX: Z32.00 Encounter for pregnancy test, result unknown (principal)
CPT/HCPCS: 36415; 84702

== ENCOUNTER → 2020-01-04 15:49 | Outpatient (CLI) | payer MEDICAID, SELFPAY ==
[2020-01-04 16:29] LABS: Basophils % 0.2 % (0.1-2.0); Eosinophils # 0.1 K/mm3 (0.0-0.4); Hematocrit 35.9 % (37.0-47.0); Hemoglobin 12.4 g/dL (12.2-16.2); Lymphocytes # 1.5 K/mm3 (0.7-4.5); Lymphocytes % 20.6 % (10-50); Mean Corpuscular HGB Conc 34.6 g/dL (31.8-35.4); Mean Corpuscular Hemoglobin 29.5 pg (27.0-31.2); Mean Corpuscular Volume 85.2 fl (81-99); Mean Platelet Volume 8.2 fl (7.4-10.4); Monocytes # 0.3 K/mm3 (0.1-1.0); Neutrophils # 5.2 K/mm3 (1.8-7.8); Neutrophils % 74.2 % (37.0-80.0); Platelet Count 230 K/mm3 (142-424); Red Blood Count 4.21 M/mm3 (4.20-5.40); Red Cell Distribution Width 13.7 % (11.5-17.5)
[2020-01-04 18:10] LABS: HCG,Quantitative 564 mIU/ml (0-5.42)
[2020-01-04 18:24] LABS: Thyroid Stimulating Hormone 1.35 uIU/mL (0.465-4.68)
[2020-01-06 11:47] LABS: Rubella Antibodies, IgG 2.81 index (Immune >0.99)
[2020-01-06 11:48] LABS: HIV Screen 4th Generation wRfx Non Reactive (Non Reactive); Hepatitis B Surface Antigen Negative (Negative); Hepatitis C Antibody 0.1 s/co ratio (0.0-0.9)
[2020-01-07 15:43] LABS: Rapid Plasma Reagin Ab Titer Non Reactive (NonRea<1:1)
== END ==
PROVIDERS: Visit Provider Nurse Practitioner Obstetrics & Gynecology
DX: Z34.90 Encounter for supervision of normal pregnancy, unspecified, unspecified trimester (principal)
CPT/HCPCS: 36415; 84443; 84702; 85025; 86592; 86703; 86762; 86850; 87340; 87380; G0432

== ENCOUNTER → 2020-01-13 12:50 | Outpatient (CLI) | payer MEDICAID, SELFPAY ==
--- NOTE | 2020-01-13 12:51 | US_ITS ---
PROCEDURE: US OB TRANSVAGINAL CLINICAL INDICATION: Early Ob COMPARISON: US TRANSVAGINAL from 09/02/2019 FINDINGS: There is no evidence of a small intrauterine gestational sac with a mean diameter of 8.4 mm. A pole is not identified. 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 There is a 2 cm left ovarian cyst. Bilateral ovarian blood flow is noted. IMPRESSION: There has been interval development of a gestational sac. A pole however is not identified. Cannot confirm viability. Continued follow-up recommended. Dictated by: Nicholas Lopez MD 01/13/2020 14:41 Electronically signed by Nicholas Lopez MD in [facility] 01/13/2020 14:41
[2020-01-13 17:37] LABS: HCG,Quantitative 3430 mIU/ml (0-5.42)
== END ==
PROVIDERS: PCP Physician Assistant; Visit Provider Nurse Practitioner Obstetrics & Gynecology
DX: Z34.90 Encounter for supervision of normal pregnancy, unspecified, unspecified trimester (principal)
CPT/HCPCS: 36415; 76817; 84702

== ENCOUNTER → 2020-01-20 08:52 | Outpatient (CLI) | payer MEDICAID, SELFPAY ==
--- NOTE | 2020-01-20 08:52 | US_ITS ---
PROCEDURE: US OB TRANSVAGINAL CLINICAL INDICATION: checking for viability COMPARISON: US OB TRANSVAGINAL from 01/13/2020 FINDINGS: There is an intrauterine gestational sac noted which measures 11 x 9 mm previously measuring 9 x 6 mm. There is a thin septation noted along the posterior aspect of the sac. No definite pole or yolk sac apparent. There is some decreased echogenicity along the superior aspect of the gestational sac. There is a 2.2 x 1.6 cm left ovarian cyst. The right ovary has an unremarkable appearance. IMPRESSION: There is a gestational sac noted with a thin septation posteriorly. No evidence of pole or yolk sac. Cannot confirm viability. The there is decreased echogenicity which is around the gestational sac posteriorly which may be related underlying blood/subchorionic hemorrhage. No change in the 2 cm left ovarian cyst. Dictated by: Nicholas Lopez MD 01/20/2020 15:56 Electronically signed by Nicholas Lopez MD in [facility] 01/20/2020 15:56
== END ==
PROVIDERS: PCP Physician Assistant; Visit Provider Nurse Practitioner Obstetrics & Gynecology
DX: Z34.90 Encounter for supervision of normal pregnancy, unspecified, unspecified trimester (principal)
CPT/HCPCS: 76817

== ENCOUNTER → 2020-01-20 11:11 | Outpatient (CLI) | payer MEDICAID, SELFPAY ==
[2020-01-20 12:28] LABS: HCG,Quantitative 8623 mIU/ml (0-5.42)
== END ==
PROVIDERS: Visit Provider Nurse Practitioner Obstetrics & Gynecology
DX: Z34.90 Encounter for supervision of normal pregnancy, unspecified, unspecified trimester (principal)
CPT/HCPCS: 36415; 84702

== ENCOUNTER → 2020-01-27 12:42 | Outpatient (CLI) | payer MEDICAID, SELFPAY ==
--- NOTE | 2020-01-27 12:42 | US_ITS ---
PROCEDURE: US OB TRANSVAGINAL CLINICAL INDICATION: check viability of fetus in early COMPARISON: US OB TRANSVAGINAL from 01/20/2020 FINDINGS: An intrauterine gestational sac is present mean sac diameter 1.27 centimeters. There is an internal septation within the gestational sac. No yolk sac or pole is apparent. Irregular fluid collection adjacent to the gestational sac within the endometrial canal is noted likely representing hemorrhage. This is similar to previous exam. Right ovary measures 2.8 x 1.5 x 2.1 centimeters with volume 5.0 milliliters. Left ovary measures 3.6 x 2.4 x 2.6 centimeters with volume 12.3 milliliters. Left ovarian cyst 1.8 x 1.6 x 1.9 centimeters is noted. Functional cyst is favored. IMPRESSION: Continued intrauterine gestational sac with some associated adjacent fluid likely hemorrhage with no pole or yolk sac. Left ovarian cyst. Dictated by: Ezequiel Heredia 01/27/2020 15:35 Electronically signed by Ezequiel Heredia in [facility] 01/27/2020 15:35
== END ==
PROVIDERS: PCP Physician Assistant; Visit Provider Nurse Practitioner Obstetrics & Gynecology
DX: O36.80X0 Pregnancy with inconclusive fetal viability, not applicable or unspecified (principal)
CPT/HCPCS: 76817

== ENCOUNTER → 2020-01-29 09:33 | Outpatient (CLI) | payer MEDICAID, SELFPAY ==
[2020-01-29 10:42] LABS: HCG,Quantitative 8600 mIU/ml (0-5.42)
== END ==
PROVIDERS: Visit Provider Nurse Practitioner Obstetrics & Gynecology
DX: Z32.00 Encounter for pregnancy test, result unknown (principal)
CPT/HCPCS: 36415; 84702

== ENCOUNTER 2020-02-04 11:24 | Emergency (ER) | payer MEDICAID, SELFPAY ==
[2020-02-04 11:36] VITALS: BP 129/87; PULSE 81; RESP 17; TEMP 36.8; O2SAT 98; BMI 40.0
[2020-02-04 11:51] LABS: Microscopic, Urine URINE MICROSCOPIC (MICROSCOPIC)
[2020-02-04 11:53] LABS: Basophils % 0.2 % (0.1-2.0); Eosinophils # 0.2 K/mm3 (0.0-0.4); Eosinophils % 2.9 % (0.1-12.0); Hematocrit 37.4 % (37.0-47.0); Hemoglobin 12.6 g/dL (12.2-16.2); Lymphocytes # 1.4 K/mm3 (0.7-4.5); Lymphocytes % 22.9 % (10-50); Mean Corpuscular HGB Conc 33.8 g/dL (31.8-35.4); Mean Corpuscular Volume 85.9 fl (81-99); Mean Platelet Volume 8.1 fl (7.4-10.4); Monocytes # 0.3 K/mm3 (0.1-1.0); Monocytes % 4.4 % (1.7-9.3); Neutrophils # 4.2 K/mm3 (1.8-7.8); Neutrophils % 69.6 % (37.0-80.0); Platelet Count 223 K/mm3 (142-424); Red Blood Count 4.35 M/mm3 (4.20-5.40); Red Cell Distribution Width 13.5 % (11.5-17.5)
--- NOTE | 2020-02-04 11:53 | US_ITS ---
PROCEDURE: US TRANSVAGINAL CLINICAL INDICATION: vaginal pain and bleeding, miscarriage COMPARISON: US OB TRANSVAGINAL from 01/27/2020 FINDINGS: The uterus measures 9.5 by by 6 cm. There is moderate endometrial thickening with heterogeneous echogenicity within the endometrium containing also some fluid echogenicity. This area measures 3.6 x 1.3 cm consistent with incomplete spontaneous miscarriage. No pole or yolk sac apparent. There is a two cm left ovarian cyst. No cul-de-sac fluid is evident. IMPRESSION: Incomplete spontaneous miscarriage Dictated by: Nicholas Lopez MD 02/04/2020 14:38 Electronically signed by Nicholas Lopez MD in [facility] 02/04/2020 14:38
[2020-02-04 11:54] LABS: Appearance,Urine CLEAR (Clear); Bilirubin,Urine Negative (Negative); Blood, Urine 2+ (Negative); Color,Urine YELLOW (Yellow); Glucose,Urine (UA) Negative (Negative); Ketones,Urine Negative (Negative); Leukocyte Esterase,Urine Negative (Negative); Nitrate,Urine Negative (Negative); Protein,Urine Negative (Negative); Specific Gravity, Urine 1.025 (1.005-1.030); Urobilinogen,Urine 0.2 EU/dl (0.2)
[2020-02-04 11:56] LABS: Urine Pregnancy, HCG Qual. Positive (Negative)
[2020-02-04 11:57] LABS: Chloride 103 mmol/L (98-107); Potassium 3.9 mmoL/L (3.5-5.1); Sodium 138 mmol/L (136-145)
[2020-02-04 11:59] LABS: Blood Urea Nitrogen 7 mg/dl (7-17); Creatinine Clearance Estimated 191 mL/min (50-200); Estimated Glomerular Filt Rate 105 ml/min (>60); GFR (African American) 127 ML/MIN (>60)
[2020-02-04 12:00] LABS: Alanine Aminotransferase 20 U/L (12-78); Albumin Level 4.1 g/dl (3.5-5.0); Albumin/Globulin Ratio 1.3 (1.1-1.8); Alkaline Phosphatase 63 U/L (38-126); Anion Gap 12.9 mEq/L (5-15); Aspartate Amino Transferase 22 U/L (14-36); Bilirubin,Total 0.5 mg/dl (0.2-1.3); Calcium 9.2 mg/dl (8.4-10.2); Carbon Dioxide 26 mmol/L (22.0-30.0); Globulin 3.1 g/dL (1.3-3.2); Glucose 80 mg/dl (74-100); Total Protein,Serum 7.2 g/dl (6.3-8.2)
[2020-02-04 12:12] LABS: Bacteria,Urine 2+ /lpf; Mucus,Urine Trace /lpf
[2020-02-04 12:17] LABS: HCG,Quantitative 1143 mIU/ml (0-5.42)
--- NOTE | 2020-02-04 12:19 | HMH.EDGENADL ---
ED Disposition Clinical Impression: Spontaneous , Vaginal bleeding Disposition: Home, Self-Care Condition on Discharge: Good Additional Instructions: After reviewing your labs and radiology we are discharging you home at this time. Her ultrasound shows that you still have products of conception need to be evacuated, see no evidence of potential infection at this time. We have prescribed oral medication for pain control. Please do not take this medication in combination with ibuprofen. We recommend that you follow-up with your [facility] in the next 2 to 3 days. Should your symptoms significantly worsen, please return to the emergency department for further evaluation. Prescriptions: Ketorolac Tromethamine [Toradol 10mg tablet] 10 mg PO Q6H 5 Days #20 tab Transmission Status: Received by [id number] Referrals: Heidi Crespo PA [Primary Care Provider] - - Critical Care Critical Care Time: No Attestation: On 02/04/20, the high probability of a clinically significant, sudden or life threatening deterioration of the following system(s) required my full and direct attention, intervention and personal management. The time I documented below is in addition to time spent performing reported procedures but includes the following listed in this critical care notation. Medical Decision Making - Nathan Inquiry Pt receiving controlled substance: No Nathan was queried for this patient: No Vital Signs: 02/04/20 11:36 02/04/20 13:57 Temperature 98.3 F 98.3 F Temperature Source Oral Oral Pulse Rate 74 Pulse Rate [Right Radial] 81 Respiratory Rate 17 18 Blood Pressure 115/85 Blood Pressure [Right Arm] 129/87 Blood Pressure Mean [Right Arm] 101 02 Sat by Pulse Oximetry 98 Oxygen Delivery Method Room Air Room Air - Lab Data Lab Results 02/04/20 11:45: WBC 6.0, RBC 4.35, Hgb 12.6, Hct 37.4, MCV 85.9, MCH 29.0, MCHC 33.8, RDW 13.5, Plt Count 223, MPV 8.1, Neut % (Auto) 69.6, Lymph % (Auto) 22.9, [place] % (Auto) 4.4, Eos % (Auto) 2.9, Baso % (Auto) 0.2, Neut # (Auto) 4.2, Lymph # (Auto) 1.4, [place] # (Auto) 0.3, Eos # (Auto) 0.2, Baso # (Auto) 0.0 02/04/20 11:45: Sodium 138, Potassium 3.9, Chloride 103, Carbon Dioxide 26, Anion Gap 12.9, BUN 7, Creatinine 0.70, Estimated Creat Clear 191, Estimated GFR 105, Est GFR ( Amer) 127, Glucose 80, Calcium 9.2, Total Bilirubin 0.5, AST 22, ALT 20, Alkaline Phosphatase 63, Total Protein 7.2, Albumin 4.1, Globulin 3.1, Albumin/Globulin Ratio 1.3 02/04/20 11:45: Influenza Type A Ag Negative, Influenza Type B Ag Negative 02/04/20 11:45: Urine Color Yellow, Urine Appearance Clear, Urine pH 7.0, Ur Specific [place] 1.025, Urine Protein Negative, Urine Glucose (UA) Negative, Urine Ketones Negative, Urine Blood 2+, Urine Nitrate Negative, Urine Bilirubin Negative, Urine Urobilinogen 0.2, Ur Leukocyte Esterase Negative, Urine RBC 5-10, Urine WBC 10-20, Ur Squamous Epith Cells 5-10, Urine Bacteria 2+, Urine Mucus Trace 02/04/20 11:45: Urine HCG, Qual Positive 02/04/20 11:45: HCG, Quant 1143 H 02/04/20 12:10: Blood Type AB Positive, Antibody Screen Negative Result diagrams: 02/04/20 11:45 02/04/20 11:45 Orders (Tests/Meds): ED MEDICATIONS Discontinued Medications Generic Name Dose Route Start Last Admin Trade Name Freq PRN Reason Stop Dose Admin Lactated Ringer's 1,000 mls @ 999 mls/hr 02/04/20 12:30 02/04/20 12:40 Lactated Ringer's 1000 Ml Bag IV 02/04/20 13:30 999 mls/hr .Q1H1M STEPHEN Administration Ketorolac Tromethamine 30 mg 02/04/20 12:21 02/04/20 12:40 Toradol 30mg/Ml Vial IV 02/04/20 12:22 30 mg ONCE ONE Administration Ondansetron HCl 4 mg 02/04/20 12:21 02/04/20 12:40 Zofran 4mg/2ml Vial IV 02/04/20 12:22 4 mg ONCE ONE Administration ORDERS Category Date Time Status US transvaginal Stat Exams 02/04/20 11:53 Taken Urine Culture Stat Micro 02/04/20 11:45 Received Medical Decision Narrative: In
[2020-02-04 13:57] VITALS: BP 115/85; PULSE 74; RESP 18; TEMP 36.8; O2SAT 98
== END 2020-02-04 13:58 | disposition home or self-care (01) ==
PROVIDERS: Emergency Provider Emergency Medicine; PCP Physician Assistant
DX: O03.9 Complete or unspecified spontaneous abortion without complication (principal); K21.9 Gastro-esophageal reflux disease without esophagitis; Z87.891 Personal history of nicotine dependence; Z90.49 Acquired absence of other specified parts of digestive tract
CPT/HCPCS: 36415; 76830; 80053; 81001; 81025; 84702; 85025; 86850; 87086; 87275; 87276; 96365; 96375; 99283; J2405

== ENCOUNTER 2020-02-15 05:48 | Day surgery (SDC) | payer MEDICAID, SELFPAY ==
[2020-02-15] VITALS (8 sets, daily range): BP systolic 103–131; BP diastolic 67–89; PULSE 67–88; RESP 14–20; TEMP 36.1–36.8; O2SAT 93–100; BMI 40.0
[2020-02-15 06:57] LABS: Basophils % 0.5 % (0.1-2.0); Eosinophils # 0.2 K/mm3 (0.0-0.4); Eosinophils % 2.1 % (0.1-12.0); Hematocrit 38.7 % (37.0-47.0); Lymphocytes # 1.9 K/mm3 (0.7-4.5); Lymphocytes % 25.7 % (10-50); Mean Corpuscular HGB Conc 33.6 g/dL (31.8-35.4); Mean Corpuscular Hemoglobin 29.7 pg (27.0-31.2); Mean Corpuscular Volume 88.5 fl (81-99); Mean Platelet Volume 8.1 fl (7.4-10.4); Monocytes # 0.3 K/mm3 (0.1-1.0); Monocytes % 4.4 % (1.7-9.3); Neutrophils # 4.9 K/mm3 (1.8-7.8); Neutrophils % 67.2 % (37.0-80.0); Platelet Count 256 K/mm3 (142-424); Red Blood Count 4.37 M/mm3 (4.20-5.40); Red Cell Distribution Width 13.7 % (11.5-17.5); White Blood Count 7.3 K/mm3 (4.8-10.8)
[2020-02-15 07:03] LABS: Chloride 104 mmol/L (98-107)
[2020-02-15 07:04] LABS: Potassium 3.8 mmoL/L (3.5-5.1); Sodium 137 mmol/L (136-145)
--- NOTE | 2020-02-15 07:05 | P.PN_ITS ---
[facility] Anesthesia Checklist - Patient Identification Patient Identification: Arm Band, Verbal (Name & ) - Structural Data Admitted From: Home Planned Operative Procedure/s: D&E Consent for Planned Operative Procedure(s) Verified: Yes Verified Documents: Surgical Consent, History and Physical - NPO Status Verified Time NPO: 23:30 - Chart Verification Results Verified: CBC, BMP - Additional verifications Patient : Yes Anesthesia Reactions: Yes (nausea/ vomitting) Hx Blood Transfusions: No Blood Transfusion Reaction: No - Airway Assessment C-Spine Mobility Assessed: Yes TMJ Mobility Assessed: Yes Dentition: Good Dentition - Neurological Assessment Level of Consciousness: Awake, Alert, Appropriate, Follows Commands Hx Seizures: No Numbness or tingling in extremities: No - Anesthesia Plan Anesthesia Risk discussed: Yes Anesthesia Plan: Verified ASA Class: II Anesthesia Type: General [facility] History I have reviewed the patient's past medical history: Yes 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: Reports:: Urinary Tract Infection Denies:: Cancer, Diabetes Mellitus Type 1, Diabetes Mellitus Type 2, Internal Pacemaker, Lung Disease, MRSA, Seizures *Have you ever received a pneumonia vaccine?: No *Have you received a flu vaccine this season?: No Other 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: Reports: Other. Denies: Blood Transfusion Reaction Comment:: morbid obesity Anesthesia experience/problems:: PONV Laterality Cases: Bilateral: Tonsillectomy, Other Other Surgeries: Yes: Cholecystectomy, EGD, Other (right ankle 2019). No: Pacemaker Amputation: No Fractures: No - *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 Educational Level: Attended College Smoking Status: Former smoker Tobacco Type: cigarettes #Yrs smoked (if former smoker): 2 Smoking End Date: 01/25/2018 Alcohol Intake: never Alcohol Intake Frequency:: holidays/special occasions only Substance Use Type: denies use *Occupational Status:: unemployed Housing: house Household Members: significant other, family *Travel in the last 8 weeks: None Family Hx:: Asthma, Diabetes, Heart Attack, Stroke
[2020-02-15 07:07] LABS: Anion Gap 8.8 mEq/L (5-15); Blood Urea Nitrogen 11 mg/dl (7-17); Calcium 9.3 mg/dl (8.4-10.2); Carbon Dioxide 28 mmol/L (22.0-30.0); Creatinine Clearance Estimated 191 mL/min (50-200); Estimated Glomerular Filt Rate 105 ml/min (>60); GFR (African American) 127 ML/MIN (>60); Glucose 93 mg/dl (74-100)
--- NOTE | 2020-02-15 07:37 | HMH.OPNOTE ---
Date of procedure: 02/15/20 Pre-op Diagnosis:: Missed Post-op Diagnosis:: Missed Procedure performed:: Dilation and curettage with Ted suction Surgeon:: Itz Lamb MD [employer]ER:: Fortunato Cesar Anesthesia: LMA Estimated blood loss (mL): 50 Clinical Note:: She is a 24-year-old 1 para 0 at 9 weeks gestational age who was seen in my office and had a missed . She had decreasing beta hCGs. When I saw her yesterday she had still not passed the tissue and continued to have irregular bleeding. As result of this we offered her dilation evacuation with [place] suction. The risks and benefits were discussed with the patient prior to surgery. Operative findings:: She had a normal anteverted uterus. There was moderate tissue within the endometrium. There was old blood around the tissue. Operative note:: She was taken operating room where LMA anesthesia was found be adequate. She was prepped draped normal sterile fashion lithotomy position. Weighted speculum placed in vagina and the anterior lip of the cervix was grasped with a tenaculum. The cervix was dilated up to 10 mm.. Then using a 10 mm curved [place] suction curette I evacuated the uterine contents. This was followed by gentle curettage. She tolerated procedure well and was taken to the recovery room in excellent condition. All sponge, instrument and needle counts were correct. The estimated blood loss was approximately 50 cc. Condition: stable Disposition: PACU Specimens:: Products of conception Complications:: None
--- NOTE | 2020-02-15 07:44 | HMH.ANESI ---
[facility] Anesthesia Record Part I Intake, IV Amount: 700 Estimated blood loss (mL): 25 Urine output (mL): 20 Blood Products used (#): none Blood Pressure: 123/84 SaO2: 93 Pulse Rate: 88 Respiratory Rate: 14 Temperature: 97.0 F Patient is:: Drowsy, Stable Stable to PACU at:: 07:35
--- NOTE | 2020-02-15 08:23 | PC.NURSE ---
0759-pt drinking w/out difficulty denies nausea 08-detailed report given to DIXON Jo at bedside 08-pt transferred to phase II at this time, left in care of DIXON Jo with bed locked in lowest position,[facility]
--- NOTE | 2020-02-15 15:28 | HMH.ANESII ---
[facility] Anesthesia Record Part II Discharge Time: 08:35 Destination: Home PACU nurse assessment reviewed?: Yes Patient Condition:: Good Anesthesia Complications:: None Swallowing reflex intact?: Yes Cyanosis?: No Blood Pressure: 109/69 Pulse Rate: 71 Temperature: 97.8 F Mental Status: Alert & Oriented Pain level:: 0 Nausea and/or vomitting:: None Intake, IV Amount: 0 Comments:: O2sat 100% on RA
== END 2020-02-15 08:35 ==
LOC: OR 05:49
PROVIDERS: PCP Physician Assistant; Visit Provider Nurse Practitioner Obstetrics & Gynecology
PROC: (CPT 59820; principal; 2020-02-15 07:30)
DX: O02.1 Missed abortion (principal); Z90.89 Acquired absence of other organs; Z87.891 Personal history of nicotine dependence; Z87.440 Personal history of urinary (tract) infections; K21.9 Gastro-esophageal reflux disease without esophagitis; Z82.3 Family history of stroke; Z82.49 Family history of ischemic heart disease and other diseases of the circulatory system; Z83.3 Family history of diabetes mellitus; Z80.9 Family history of malignant neoplasm, unspecified
CPT/HCPCS: 59820; 80048; 85025; 96374; J2405

== ENCOUNTER 2020-12-04 10:56 | Emergency (ER) | payer OTHER, SELFPAY ==
[2020-12-04 11:11] VITALS: BP 147/87; PULSE 89; RESP 18; TEMP 36.8; O2SAT 97; BMI 40.9
--- NOTE | 2020-12-04 11:30 | HMH.EDUTC ---
[facility] [place] Disposition Clinical Impression: Viral syndrome, Exposure to COVID-19 virus Qualifiers: Weeks of gestation: 11 weeks Qualified Code(s): Z3A.11 - 11 weeks gestation of Disposition: Home, Self-Care Condition on Discharge: Good Instructions: Preventing the Spread of Coronavirus Discharge Instructions Additional Instructions: Drink plenty of fluids. Take tylenol for pain or fever. Return if you begin to have difficulty breathing. You have to follow up with your ob doctor. Please call their office today and let them know what's going on. Follow up with your regular doctor. GO TO THE ER FOR ANY WORSENING SYMPTOMS Referrals: PCP,No [Primary Care Provider] - Time of Disposition: 11:42 Medical Decision Making - Medical Records Medical records reviewed: No: I reviewed the patient's medical records. - Nathan Inquiry Pt receiving controlled substance: No Vital Signs: 12/04/20 11:11 12/04/20 11:55 Temperature 98.3 F 98.1 F Temperature Source Oral Oral Pulse Rate 89 Pulse Rate [Right] 89 Respiratory Rate 18 18 Blood Pressure 142/84 H Blood Pressure [Right Arm] 147/87 H Blood Pressure Mean [Right Arm] 107 Blood Pressure Source Automatic Cuff Blood Pressure Source [Right Arm] Automatic Cuff Blood Pressure Position Sitting Blood Pressure Position [Right Arm] Sitting 02 Sat by Pulse Oximetry 97 Oxygen Delivery Method Room Air Room Air [facility] [place] HPI - General Stated complaint: covid exposure,11 weeks Time Seen by Provider: 12/04/20 11:38 Mode of Arrival: Ambulatory Source of Information: Patient Limitations: No Limitations Description of Symptoms (Recalled from Triage Doc. by RN): pt is eleven weeks with twins. she lives with her father in law whom tested positive for covid friday. pt is symptomatic with cough, JAMES, fever, light headed, soa, stomach and back pain. HEENT Symptoms (Recalled from RN notes): Yes (JAMES and light headed) Resp Symptoms (Recalled from RN notes): Yes (soa and cough) Skin Symptoms (Recalled from RN notes): No MS Symptoms (Recalled from RN notes): Yes (body aches) Functional Status (Recalled from RN notes): na - History of Present Illness Provider Complaint: She states that she has been exposed to covid-19. Her father in law is currently hospitalized with covid. She c/o feeling bad and having body aches so far. - Related Data Home Medications Medication Instructions Recorded Confirmed vitamin with calcium 1 tab PO DAILY 01/31/20 02/28/20 no.72-iron 27 mg-folic acid 1 mg tablet diphenhydrAMINE HCL [Benadryl] 25 mg PO DAILY PRN 02/15/20 02/28/20 Allergies Allergy/AdvReac Type Severity Reaction Status Date / Time No Known Allergies Allergy Verified 02/28/20 11:18 - Worker's Comp Is this a Worker's Comp case?: No H History - Hepatitis A Screen Drug use history?: No High risk sexual behaviors?: No History of sexually transmitted infection?: No Currently employed?: No Childcare worker?: No Do you have indoor plumbing?: Yes Do you have electricity?: Yes Attestation statement:: This patient has been screened for Hepatitis A risk factors. I have reviewed the patient's past medical history: Yes 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: Reports:: Gastroesophageal Reflux Disease(GERD), Urinary Tract Infection Denies:: Cancer, Diabetes Mellitus Type 1, Diabetes Mellitus Type 2, Internal Pacemaker, Lung Disease, MRSA, Seizures Other 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: Reports: Other. Denies: Blood Transfusion Reaction Comment: morbid obesity Laterality Cases: Bilateral: Tonsillectomy, Other Other Surgeries: Yes: No Previous Surgery, Cholecystectomy, EGD, Other (right ankle 2019). No: Pacemaker Amputation: No Fractures: No Comment: Cholecystectomy, Dental work, LEFT FOOT/ankle 2019 - 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 Smoking Status: Never smoker Tobacco Type: cigarettes #Yrs smoked (if former smoker): 2 Alcohol Intake: never Alcohol Intake [place]
[2020-12-04 11:55] VITALS: BP 142/84; PULSE 89; RESP 18; TEMP 36.7
--- NOTE | 2020-12-04 16:49 | PC.NURSE ---
spoke with pt and relayed positive covid test results.
== END 2020-12-04 11:57 | disposition home or self-care (01) ==
PROVIDERS: Emergency Provider Nurse Practitioner Family
DX: U07.1 COVID-19 (principal); Z3A.11 11 weeks gestation of pregnancy; K21.9 Gastro-esophageal reflux disease without esophagitis
CPT/HCPCS: 99202; G0463; U0003

== ENCOUNTER → 2021-08-20 15:49 | Outpatient (CLI) | payer OTHER, SELFPAY ==
[2021-08-20 16:16] LABS: Chloride 105 mmol/L (98-107); Sodium 140 mmol/L (136-145)
[2021-08-20 16:17] LABS: Potassium 3.9 mmoL/L (3.5-5.1)
[2021-08-20 16:20] LABS: Anion Gap 12.9 mEq/L (5-15); Blood Urea Nitrogen 7 mg/dl (7-17); Carbon Dioxide 26 mmol/L (22.0-30.0); Estimated Glomerular Filt Rate 153 ml/min (>60); GFR (African American) 185 ML/MIN (>60); Glucose 88 mg/dl (74-100)
[2021-08-20 16:25] LABS: C-Reactive Protein 12.7 mg/L (0-4)
[2021-08-20 16:32] LABS: Erythrocyte Sedimentation Rate 43 mm/hr (0-20)
[2021-08-20 16:51] LABS: Thyroid Stimulating Hormone 1.39 uIU/mL (0.465-4.68)
[2021-08-20 17:20] LABS: Uric Acid 4.7 mg/dl (2.5-6.2)
== END ==
PROVIDERS: Visit Provider Family Medicine
DX: R51.9 Headache, unspecified (principal); R03.0 Elevated blood-pressure reading, without diagnosis of hypertension
CPT/HCPCS: 80048; 84443; 84550; 85651; 86140

== ENCOUNTER → 2021-09-08 08:47 | Outpatient (CLI) | payer OTHER, SELFPAY ==
--- NOTE | 2021-09-08 08:47 | MR_ITS ---
PROCEDURE INFORMATION: Exam: MR Thoracic Spine Without Contrast Exam date and time: 09/08/2021 8:47 AM Age: 25 years old Clinical indication: Pain in thoracic spine; Additional info: Neck, back pain. Cervical- thoracic pain, dysesthesias midline t10. Migraine headache. Electric pain going up neck and down legs. Mid back pain worse [id number]. TECHNIQUE: Imaging protocol: Multiplanar magnetic resonance images of the thoracic spine without intravenous contrast. COMPARISON: [facility] gastric emptying study 10/16/2018 11:08 AM FINDINGS: Vertebrae: Unremarkable. Spinal cord: Normal signal. No cord compression. T1-T2: No significant disc disease. No significant spinal canal stenosis. T2-T3: No significant disc disease. No significant spinal canal stenosis. T3-T4: No significant disc disease. No significant spinal canal stenosis. T4-T5: No significant disc disease. No significant spinal canal stenosis. T5-T6: No significant disc disease. No significant spinal canal stenosis. T6-T7: No significant disc disease. No significant spinal canal stenosis. T7-T8: No significant disc disease. No significant spinal canal stenosis. T8-T9: No significant disc disease. No significant spinal canal stenosis. T9-T10: No significant disc disease. No significant spinal canal stenosis. T10-T11: No significant disc disease. No significant spinal canal stenosis. T11-T12: No significant disc disease. No significant spinal canal stenosis. Soft tissues: Unremarkable. IMPRESSION: Unremarkable MRI thoracic spine.
--- NOTE | 2021-09-08 08:47 | MR_ITS ---
PROCEDURE INFORMATION: Exam: MR Cervical Spine Without Contrast Exam date and time: 09/08/2021 8:47 AM Age: 25 years old Clinical indication: Neck pain; Additional info: Cervical- thoracic pain, dysesthesias midline t10. Migraine headache. Electric pain going up neck and down legs. Mid back pain worse [id number]. TECHNIQUE: Imaging protocol: Multiplanar magnetic resonance images of the cervical spine without contrast. COMPARISON: No relevant prior studies available. FINDINGS: Vertebrae: Vertebral body heights and alignment are within normal limits. Marrow signal is age appropriate. Intervertebral discs are well preserved. Spinal cord: There is no evidence of cord compression. No intrinsic signal abnormalities identified in the cervical spinal cord itself. C2-C3: No significant disc disease. No significant spinal stenosis. C3-C4: No significant disc disease. No significant spinal stenosis. C4-C5: No significant disc disease. No significant spinal stenosis. C5-C6: No significant disc disease. No significant spinal stenosis. C6-C7: No significant disc disease. No significant spinal stenosis. C7-T1: No significant disc disease. No significant spinal stenosis. Soft tissues: Unremarkable. Vertebral arteries: Expected flow voids in the vertebral arteries. IMPRESSION: Normal MRI of the cervical spine.
== END ==
PROVIDERS: PCP Family Medicine; Visit Provider Specialist
DX: M54.6 Pain in thoracic spine (principal); R20.8 Other disturbances of skin sensation
CPT/HCPCS: 72141; 72146; 76376

== ENCOUNTER → 2021-10-09 15:13 | Outpatient (POV) | payer OTHER, SELFPAY | PROVIDERS: Visit Provider Dermatology | DX: Z00.00 Encounter for general adult medical examination without abnormal findings (principal) ==

== ENCOUNTER → 2021-10-29 09:16 | Outpatient (CLI) | payer OTHER, SELFPAY ==
[2021-10-29 10:31] LABS: Urine Pregnancy, HCG Qual. Negative (Negative)
== END ==
PROVIDERS: Visit Provider Nurse Practitioner Family
DX: T38.4X5A Adverse effect of oral contraceptives, initial encounter (principal)
CPT/HCPCS: 81025

== ENCOUNTER → 2021-11-26 15:11 | Outpatient (CLI) | payer OTHER, SELFPAY ==
--- NOTE | 2021-11-26 15:21 | ECG_ITS ---
APPROVED REPORT Exam: Resting ECG HR:59 bpm ECG Measurements Heart Rate 59 AXES MI 126 P 16 QRSd 99 QRS 58 QT 435 T -23 QTc 434 Conclusion SINUS BRADYCARDIA NONSPECIFIC ST & T-WAVE ABNORMALITY ABNORMAL ECG UNCONFIRMED REPORT Electronically signed by : Jeovany Landrum MD 11/26/2021 17:25:39
== END ==
PROVIDERS: PCP Family Medicine; Visit Provider Family Medicine
DX: R00.2 Palpitations (principal)
CPT/HCPCS: 93005

== ENCOUNTER → 2021-11-27 08:32 | Outpatient (CLI) | payer OTHER, SELFPAY ==
[2021-11-27 09:14] LABS: Basophils % 0.7 % (0.1-2.0); Eosinophils # 0.1 K/mm3 (0.0-0.4); Eosinophils % 1.8 % (0.1-12.0); Hematocrit 40.9 % (37.0-47.0); Hemoglobin 13.3 g/dL (12.2-16.2); Lymphocytes # 1.4 K/mm3 (0.7-4.5); Lymphocytes % 23.1 % (10-50); Mean Corpuscular HGB Conc 32.6 g/dL (31.8-35.4); Mean Corpuscular Hemoglobin 29.3 pg (27.0-31.2); Mean Platelet Volume 9.1 fl (7.4-10.4); Monocytes # 0.2 K/mm3 (0.1-1.0); Neutrophils # 4.1 K/mm3 (1.8-7.8); Neutrophils % 70.4 % (37.0-80.0); Platelet Count 242 K/mm3 (142-424); Red Blood Count 4.54 M/mm3 (4.20-5.40); Red Cell Distribution Width 14.5 % (11.5-17.5); White Blood Count 5.9 K/mm3 (4.8-10.8)
[2021-11-27 09:56] LABS: Chloride 104 mmol/L (98-107); Sodium 140 mmol/L (136-145)
[2021-11-27 09:57] LABS: Potassium 3.9 mmoL/L (3.5-5.1)
[2021-11-27 09:59] LABS: Alanine Aminotransferase 22 U/L (12-78); Alkaline Phosphatase 71 U/L (38-126); Aspartate Amino Transferase 19 U/L (14-36); Bilirubin,Total 0.9 mg/dl (0.2-1.3); Blood Urea Nitrogen 8 mg/dl (7-17); Estimated Glomerular Filt Rate 103 ml/min (>60); GFR (African American) 124 ML/MIN (>60)
[2021-11-27 10:00] LABS: Albumin Level 4.1 g/dl (3.5-5.0); Albumin/Globulin Ratio 1.3 (1.1-1.8); Calcium 8.9 mg/dl (8.4-10.2); Globulin 3.2 g/dL (1.3-3.2); Glucose 90 mg/dl (74-100); Total Protein,Serum 7.3 g/dl (6.3-8.2)
[2021-11-27 17:16] LABS: Anion Gap 11.9 mEq/L (5-15); Carbon Dioxide 28 mmol/L (22.0-30.0)
[2021-11-28 08:17] LABS: Hep A Ab, IgM Negative (Negative); Hepatitis B Core Antibody IgM Negative (Negative); Hepatitis B Surface Antigen Negative (Negative); Hepatitis C Antibody <0.1 s/co ratio (0.0-0.9)
[2021-11-29 22:27] LABS: QuantiFERON-TB Gold Plus Negative (Negative)
== END ==
PROVIDERS: PCP Family Medicine; Visit Provider Dermatology
DX: L40.0 Psoriasis vulgaris (principal); L73.2 Hidradenitis suppurativa; Z79.899 Other long term (current) drug therapy
CPT/HCPCS: 36415; 80053; 80074; 85025; 86480

== ENCOUNTER → 2022-07-10 14:40 | Outpatient (CLI) | payer OTHER, SELFPAY ==
--- NOTE | 2022-07-10 14:44 | XR_ITS ---
FINAL REPORT CLINICAL HISTORY: ACUTE MIDLINE LOW BACK PAIN WITHOUT SCIATICA FINDINGS: 5 views of the lumbar spine were obtained. There is no evidence of fracture or dislocation. The vertebral alignment is normal. Disc spaces are preserved. No paraspinous soft tissue abnormalities identified. IMPRESSION: No acute bony abnormality. Reviewed, Interpreted and Dictated by Carter King III, MD Transcribed by Mariana Au Authenticated and [facility]
--- NOTE | 2022-07-10 14:44 | XR_ITS ---
FINAL REPORT CLINICAL HISTORY: NECK PAIN FINDINGS: CERVICAL SPINE Four views were obtained. There is no acute fracture. There is no malalignment. The disc spaces are preserved. There is no soft tissue abnormality. IMPRESSION: No acute bony abnormality. Reviewed, Interpreted and Dictated by Carter King III, MD Transcribed by Krystal Goodman Authenticated and [facility]
== END ==
PROVIDERS: PCP Family Medicine; Visit Provider Physician Assistant
DX: M54.2 Cervicalgia (principal); M54.50 Low back pain, unspecified
CPT/HCPCS: 72050; 72110

== ENCOUNTER 2022-12-01 09:13 | Emergency (ER) | payer OTHER, SELFPAY ==
[2022-12-01 09:30] VITALS: BP 108/67; PULSE 74; RESP 20; TEMP 37; O2SAT 99; BMI 29.5
[2022-12-01 09:46] LABS: Apearance,Urine Clear (Clear); Bilirubin,Urine Negative (Negative); Blood, Urine Negative (Negative); Color,Urine Dark Yellow (Yellow); Glucose,Urine (UA) Negative (Negative); Ketones,Urine Negative (Negative); Protein,Urine Negative (Negative); Specific Gravity, Urine 1.025 (1.005-1.030); UTC Leukocyte Esterase,Urine Negative (Negative); UTC Nitrate,Urine Negative (Negative); Urobilinogen,Urine 0.2 EU/dl (0.2)
--- NOTE | 2022-12-01 09:49 | EXP.UTC ---
Discharge Plan Disposition Patient Disposition: Still a Patient Condition: Good Prescriptions Prescriptions: No Action norethindrone (contraceptive) 0.35 mg tablet 0.35 mg PO DAILY multivitamin Tablet 1 tab PO DAILY rimegepant [Nurtec ODT] 75 mg tablet,disintegrating 0RF rizatriptan 10 mg tablet,disintegrating 10 mg PO Q2H PRN (Reason: migraine headache) Qty: 10 6RF Rx Instructions: do not exceed 2 doses per 24 hrs or 4 doses per week metoprolol succinate 50 mg tablet extended release 24 hr 50 mg PO DAILY acetaminophen [Tylenol] 325 mg tablet 325 mg PO QID PRN triamcinolone acetonide 0.1 % cream 1 applic TOPICAL BID Referrals Follow up/Referrals: Johnathan Duenas MD [Primary Care Provider] - See instructions Discharge ED Provider: Stephan Munoz [facility] [place] H[place] General Stated complaint: Diarrhea abd pain Mode of Arrival: Ambulatory Source of Information: Patient Limitations: No Limitations Time Seen by Provider: 12/01/22 09:49 Description of Symptoms (Recalled from Triage Doc. by RN): diarrhea, nausea, stomach pain right sided that radiates to the back, low grade fever HEENT Symptoms (Recalled from RN notes): No Resp Symptoms (Recalled from RN notes): No Skin Symptoms (Recalled from RN notes): No MS Symptoms (Recalled from RN notes): No Functional Status (Recalled from RN notes): n/a History of Present Illness Provider Complaint: Patient states that she has been having diarrhea on and off for the last 5 days States that she has also started having pain in the right side of her abdomen States that it started out dull and now it is sharp and worse if she is up moving around States that pain is about a 6 right now States that when the pain hits it makes her nauseous and the pain goes into her back at times States that she has had gallbladder removed Related Data Home Medications Medication Instructions Recorded Confirmed metoprolol succinate 50 mg 50 mg PO DAILY 08/27/21 10/29/21 tablet,extended release 24 hr multivitamin 1 tab PO DAILY 09/25/21 10/29/21 norethindrone (contraceptive) 0.35 0.35 mg PO DAILY 09/25/21 10/29/21 mg tablet Allergies Allergy/AdvReac Type Severity Reaction Status Date / Time No Known Allergies Allergy Verified 12/01/22 09:49 Worker's Comp Is this a Worker's Comp case?: No [facility] Disclaimer: The information contained in this section may have been updated after the patient was seen, as this information can be updated by other users. 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 Bilateral ankle pain Bilirubin in urine Dysuria Early satiety Epigastric pain Heartburn Loss of appetite Proteinuria Sore throat Surgical History History of cholecystectomy Family History (Updated 12/01/22 @ 09:49 by Daylin Goodman RN) Other No significant family history 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 (Reviewed 12/01/22 @ :49 by Daylin Goodman RN) Smoking Status: Former smoker pack-years: 2 second hand exposure: No alcohol intake: current substance use type: denies use current occupational status: other Travel in the last 8 weeks: None household members: spouse and children housing: house current occupational exposures/hazards: No caffeine: Yes ROS Obtained: Yes All systems reviewed & no additional complaints except as documented and Yes Systems reviewed as appropriate & no additional complaints except as documented Constitutional Constitutional: Reports system reviewed and no additional complaints, except as documented, Reports as per HPI and Reports fever(s) ENT Ears, Nose, Mouth, and Throat: Reports system reviewed and no additional complaints, except as documented and Reports as per HPI Cardiovascular Cardiovascular: Reports system reviewed and no additional complaints, except as documented and Reports as per HPI Respiratory Respiratory: Reports syste
[2022-12-01 09:55] LABS: UTC Pregnancy Test, Urine Negative (Negative)
[2022-12-01 10:22] VITALS: BP 117/67; PULSE 75; RESP 18; O2SAT 99; BMI 36.4
--- NOTE | 2022-12-01 10:23 | HMH.EDABDPAI ---
Discharge Plan Disposition Patient Disposition: Home, Self-Care Condition: Good Prescriptions Prescriptions: New ondansetron 8 mg Tablet,Disintegrating 8 mg PO QID PRN (Reason: Nausea And Vomiting) Qty: 16 0RF dicyclomine 20 mg tablet 20 mg PO TID PRN (Reason: pain) Qty: 20 0RF No Action norethindrone (contraceptive) 0.35 mg tablet 0.35 mg PO DAILY multivitamin Tablet 1 tab PO DAILY metoprolol succinate 50 mg tablet extended release 24 hr 50 mg PO DAILY Referrals Follow up/Referrals: Johnathan Duenas MD [Primary Care Provider] - See instructions Activity Restrictions/Add. Instructions Additional Instructions/Restrictions: You can take [id number] Tylenol and antidiarrheal medication as instructed on the packages. Return to the emergency department if you feel worse in any way. Follow-up with your primary care doctor in about 2 to 3 days if you do not get any better. If she is still feel nauseous stick with a clear liquid diet for the next day or 2. Clinical Impressions Clinical Impression: Gastroenteritis Instructions Patient Instructions: Diarrhea, DI for Viral Gastroenteritis -- Adult, DI for Acute Abdominal Pain Discharge ED Provider: Stephan Munoz Abdominal Pain HPI General Chief Complaint: Abdominal Pain Stated Complaint: Diarrhea abd pain Time Seen by Provider: 12/01/22 09:49 Mode of Arrival: Ambulatory Source of Information: Patient Limitations: No Limitations Description of Symptoms (Recalled from ER Triage Doc. by RN): diarrhea, nausea, stomach pain right sided that radiates to the back, low grade fever History of Present Illness HPI narrative: The patient presents to the emergency department complaining of diarrhea for about 5 days. It is nonbloody. It is not associated with fever. The patient also complains of some abdominal cramping. She denies vomiting but feels nauseous. She had a cholecystectomy approximately 4 years ago. Related Data Home Medications Medication Instructions Recorded Confirmed metoprolol succinate 50 mg 50 mg PO DAILY . 08/27/21 12/01/22 tablet,extended release 24 hr multivitamin 1 tab PO DAILY . 09/25/21 12/01/22 norethindrone (contraceptive) 0.35 0.35 mg PO DAILY . 09/25/21 12/01/22 mg tablet Previous Rx's Medication Instructions Recorded dicyclomine 20 mg tablet 20 mg PO TID PRN pain #20 tabs 12/01/22 ondansetron 8 mg disintegrating 8 mg PO QID PRN Nausea And 12/01/22 tablet Vomiting #16 tabs Allergies Allergy/AdvReac Type Severity Reaction Status Date / Time No Known Allergies Allergy Verified 12/01/22 09:49 [facility] Disclaimer: The information contained in this section may have been updated after the patient was seen, as this information can be updated by other users. 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 (Updated 12/01/22 @ 10:47 by Stephan Munoz MD) Bilateral ankle pain Bilirubin in urine Dysuria Early satiety Epigastric pain Heartburn Loss of appetite Proteinuria Sore throat Surgical History History of cholecystectomy Family History (Updated 12/01/22 @ 09:49 by Daylin Goodman RN) Other No significant family history 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 Smoking Status: Never smoker second hand exposure: No alcohol intake: current substance use type: denies use current occupational status: other Travel in the last 8 weeks: None household members: spouse and children housing: house current occupational exposures/hazards: No caffeine: Yes ROS Obtained: Yes All systems reviewed & no additional complaints except as documented Physical Exam General General appearance: alert and in no apparent distress Head Head exam: atraumatic Eye Eye exam: Present normal appearance; Absent scleral icterus or jaundice ENT ENT exam: Present normal exam Neck Neck exam: Present normal inspection and full ROM
[2022-12-01 10:35] LABS: Basophils % 0.8 % (0.1-2.0); Eosinophils # 0.1 K/mm3 (0.0-0.4); Eosinophils % 1.7 % (0.1-12.0); Hematocrit 39.7 % (37.0-47.0); Hemoglobin 13.2 g/dL (12.2-16.2); Lymphocytes # 1.4 K/mm3 (0.7-4.5); Lymphocytes % 27.3 % (10-50); Mean Corpuscular HGB Conc 33.3 g/dL (31.8-35.4); Mean Corpuscular Hemoglobin 29.3 pg (27.0-31.2); Mean Platelet Volume 8.5 fl (7.4-10.4); Monocytes # 0.2 K/mm3 (0.1-1.0); Monocytes % 3.8 % (1.7-9.3); Neutrophils # 3.4 K/mm3 (1.8-7.8); Neutrophils % 66.4 % (37.0-80.0); Platelet Count 203 K/mm3 (142-424); Red Blood Count 4.51 M/mm3 (4.20-5.40); Red Cell Distribution Width 13.3 % (11.5-17.5); White Blood Count 5.1 K/mm3 (4.8-10.8)
[2022-12-01 10:37] LABS: Chloride 110 mmol/L (98-107); Potassium 3.5 mmoL/L (3.5-5.1); Sodium 144 mmol/L (136-145)
[2022-12-01 10:39] LABS: Alanine Aminotransferase 20 U/L (12-78); Aspartate Amino Transferase 21 U/L (14-36); Bilirubin,Total 0.4 mg/dl (0.2-1.3); Blood Urea Nitrogen 11 mg/dl (7-17); Creatinine Clearance Estimated 149 mL/min (50-200); Estimated Glomerular Filt Rate 87 ml/min (>60); GFR (African American) 106 ML/MIN (>60)
[2022-12-01 10:40] LABS: Albumin Level 3.9 g/dl (3.5-5.0); Albumin/Globulin Ratio 1.1 (1.1-1.8); Alkaline Phosphatase 57 U/L (38-126); Anion Gap 8.5 mEq/L (5-15); Calcium 8.5 mg/dl (8.4-10.2); Carbon Dioxide 29 mmol/L (22.0-30.0); Globulin 3.6 g/dL (1.3-3.2); Glucose 81 mg/dl (74-100); Lipase 99 U/L (23-300); Total Protein,Serum 7.5 g/dl (6.3-8.2)
[2022-12-01 11:03] VITALS: BP 117/67; PULSE 75; RESP 18; TEMP 37; O2SAT 99
== END 2022-12-01 11:05 | disposition home or self-care (01) ==
LOC: UTC 09:16 → ER 10:04
PROVIDERS: Nurse Practitioner; Emergency Provider Emergency Medicine; PCP Family Medicine
DX: K52.9 Noninfective gastroenteritis and colitis, unspecified (principal); R12 Heartburn; Z90.49 Acquired absence of other specified parts of digestive tract
CPT/HCPCS: 80053; 81003; 81025; 83690; 85025; 96361; 96374; 96375; 99285; J2405

== ENCOUNTER 2022-12-04 11:21 | Emergency (ER) | payer OTHER, SELFPAY ==
[2022-12-04 11:29] VITALS: BP 118/77; PULSE 62; RESP 18; TEMP 36.8; O2SAT 100; BMI 36.2
--- NOTE | 2022-12-04 11:45 | HMH.EDGENADL ---
Discharge Plan Disposition Patient Disposition: Left Against Medical Advice Chief Complaint: Abdominal Pain Prescriptions Prescriptions: No Action norethindrone (contraceptive) 0.35 mg tablet 0.35 mg PO DAILY multivitamin Tablet 1 tab PO DAILY metoprolol succinate 50 mg tablet extended release 24 hr 50 mg PO DAILY ondansetron 8 mg Tablet,Disintegrating 8 mg PO QID PRN (Reason: Nausea And Vomiting) Qty: 16 0RF dicyclomine 20 mg tablet 20 mg PO TID PRN (Reason: pain) Qty: 20 0RF Referrals Follow up/Referrals: Radha Awad PA [Primary Care Provider] - See instructions Instructions Patient Instructions: DI for Acute Abdominal Pain Discharge ED Provider: Yordan Barrow General Adult HPI General Chief complaint: Abdominal Pain Stated complaint: RT abd pain diarrhea headache phys refer Time Seen by Provider: 12/04/22 11:25 Mode of Arrival: Ambulatory Source of Information: Patient Limitations: No Limitations Description of Symptoms (Recalled from ER Triage Doc. by RN): pt to ed from pcp office for RLQ pain and diarrhea x1 week. pt states she has been taking dicyclomine that has helped her diarrhea but her pain is still present. pt reports she gets nauseous after eating. pt reports hx of cholecycectomy. History of Present Illness HPI narrative: 27-year-old female with right lower quadrant pain and diarrhea for 1 week presents with concern for appendicitis from primary care. She has had vomiting and diarrhea for 1 week nonbloody nonbilious, watery diarrhea however began to have abdominal pain and then the pain migrated to right lower quadrant today. Is in the right mid abdomen. No dysuria or hematuria. Related Data Home Medications Medication Instructions Recorded Confirmed metoprolol succinate 50 mg 50 mg PO DAILY . 08/27/21 12/01/22 tablet,extended release 24 hr multivitamin 1 tab PO DAILY . 09/25/21 12/01/22 norethindrone (contraceptive) 0.35 0.35 mg PO DAILY . 09/25/21 12/01/22 mg tablet Previous Rx's Medication Instructions Recorded dicyclomine 20 mg tablet 20 mg PO TID PRN pain #20 tabs 12/01/22 ondansetron 8 mg disintegrating 8 mg PO QID PRN Nausea And 12/01/22 tablet Vomiting #16 tabs Allergies Allergy/AdvReac Type Severity Reaction Status Date / Time No Known Allergies Allergy Verified 12/01/22 09:49 [facility] Disclaimer: The information contained in this section may have been updated after the patient was seen, as this information can be updated by other users. 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 (Updated 12/01/22 @ 10:47 by Stephan Munoz MD) Bilateral ankle pain Bilirubin in urine Dysuria Early satiety Epigastric pain Heartburn Loss of appetite Proteinuria Sore throat Surgical History History of cholecystectomy Family History (Updated 12/01/22 @ 09:49 by Daylin Goodman RN) Other No significant family history 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 Smoking Status: Never smoker second hand exposure: No alcohol intake: current substance use type: denies use current occupational status: other Travel in the last 8 weeks: None household members: spouse and children housing: house current occupational exposures/hazards: No caffeine: Yes ROS Obtained: Yes All systems reviewed & no additional complaints except as documented Constitutional Constitutional: Denies chills, Denies fatigue, Denies fever(s) and Denies headache(s) Eyes Eyes: Denies dry eyes ENT Ears, Nose, Mouth, and Throat: Denies headache(s) and Denies hoarseness Cardiovascular Cardiovascular: Denies dyspnea Respiratory Respiratory: Denies dyspnea Gastrointestinal Gastrointestingal: Denies nausea Genitourinary Female Genitourinary: Denies hematuria Musculoskeletal Musculoskeletal: Denies joint stiffness Integumentary/Breasts Skin/Breast: Denies rash Neurologic Neurologic: Denies headache
[2022-12-04 12:00] VITALS: BP 121/78; PULSE 60; O2SAT 100
[2022-12-04 12:25] LABS: Basophils # 0.1 K/mm3 (0-0.2); Basophils % 1.1 % (0.1-2.0); Eosinophils # 0.1 K/mm3 (0.0-0.4); Eosinophils % 1.2 % (0.1-12.0); Hematocrit 39.5 % (37.0-47.0); Hemoglobin 13.3 g/dL (12.2-16.2); Lymphocytes # 1.7 K/mm3 (0.7-4.5); Lymphocytes % 23.7 % (10-50); Mean Corpuscular HGB Conc 33.6 g/dL (31.8-35.4); Mean Corpuscular Hemoglobin 30.5 pg (27.0-31.2); Mean Corpuscular Volume 90.8 fl (81-99); Mean Platelet Volume 8.7 fl (7.4-10.4); Monocytes # 0.2 K/mm3 (0.1-1.0); Monocytes % 3.5 % (1.7-9.3); Neutrophils # 4.9 K/mm3 (1.8-7.8); Neutrophils % 70.6 % (37.0-80.0); Platelet Count 195 K/mm3 (142-424); Red Blood Count 4.35 M/mm3 (4.20-5.40); Red Cell Distribution Width 13.4 % (11.5-17.5)
[2022-12-04 12:30] LABS: Alanine Aminotransferase 24 U/L (12-78); Albumin Level 3.9 g/dl (3.5-5.0); Albumin/Globulin Ratio 1.3 (1.1-1.8); Alkaline Phosphatase 64 U/L (38-126); Anion Gap 7.7 mEq/L (5-15); Aspartate Amino Transferase 24 U/L (14-36); Bilirubin,Total 0.4 mg/dl (0.2-1.3); Blood Urea Nitrogen 13 mg/dl (7-17); Calcium 8.5 mg/dl (8.4-10.2); Carbon Dioxide 28 mmol/L (22.0-30.0); Chloride 108 mmol/L (98-107); Creatinine Clearance Estimated 169 mL/min (50-200); Estimated Glomerular Filt Rate 102 ml/min (>60); GFR (African American) 123 ML/MIN (>60); Globulin 3.1 g/dL (1.3-3.2); Glucose 84 mg/dl (74-100); Lipase 45 U/L (23-300); Potassium 3.7 mmoL/L (3.5-5.1); Sodium 140 mmol/L (136-145)
[2022-12-04 12:31] VITALS: BP 106/69; PULSE 61; O2SAT 99
--- NOTE | 2022-12-04 12:43 | PC.NURSE ---
pt very upset and says she just wants to go home , she does not want to wait any longer, pt says she has some personal things that she wants to leave . AMA form signed and IV DC'd . pt understands the risk that was given by dr gaines she said she would return for worsen symptoms
[2022-12-04 12:46] VITALS: BP 110/72; PULSE 64; RESP 20; TEMP 36.8; O2SAT 99
[2022-12-04 12:48] LABS: HCG Qualitative, Serum Negative (Negative)
== END 2022-12-04 12:48 | disposition left against medical advice (07) ==
PROVIDERS: Emergency Provider Emergency Medicine; PCP Physician Assistant
DX: R10.31 Right lower quadrant pain (principal)
CPT/HCPCS: 80053; 83690; 84703; 85025

== ENCOUNTER 2022-12-04 17:03 | Observation (INO) | payer OTHER, SELFPAY ==
--- NOTE | 2022-12-04 17:07 | CT_ITS ---
PROCEDURE INFORMATION: Exam: CT Abdomen And Pelvis With Contrast Exam date and time: 12/04/2022 5:48 PM Age: 27 years old Clinical indication: Abdominal pain; Localized; Right lower quadrant (rlq); Additional info: Rlq abdominal tenderness TECHNIQUE: Imaging protocol: Computed tomography of the abdomen and pelvis with contrast. Radiation optimization: All CT scans at this facility use at least one of these dose optimization techniques: automated exposure control; mA and/or kV adjustment per patient size (includes targeted exams where dose is matched to clinical indication); or iterative reconstruction. Contrast material: ISOVUE; Contrast volume: 75 ml; Contrast route: IV; Other protocol: This patient has received 0 known CTs and 0 known cardiac nuclear medicine studies in the 12 months prior to the current study. COMPARISON: US TRANSVAGINAL 02/04/2020 11:58 AM FINDINGS: Lungs: The visualized lung bases are clear. Pleural spaces: There are no pleural effusions. Heart: The visualized portions of the heart are unremarkable. There is no evidence of pericardial fluid collections. Liver: The liver is normal. Gallbladder and bile ducts: There has been a cholecystectomy. Pancreas: The pancreas is normal. Spleen: The spleen is mildly prominent measuring 13.8 cm. Adrenal glands: The adrenal glands are normal. Kidneys and ureters: The kidneys are normal. Stomach and bowel: The stomach is normal. The duodenum is unremarkable. Lack of gastrointestinal contrast limits evaluation of bowel. The colon is normal. Lack of gastrointestinal contrast limits evaluation of bowel. Unopacified loops of small bowel within range of normal. Appendix: The appendix is minimally prominent, measuring 6.5 mm. There is a trace amount of periappendiceal free fluid in the right lower quadrant. Intraperitoneal space: No evidence of intraperitoneal free air. Trace amount of nonspecific free fluid is present in the right lower quadrant. Vasculature: No abdominal aortic aneurysm. Lymph nodes: There are a few lymph nodes in the right hemiabdomen, not of pathologic significance by CT size criteria. Urinary bladder: The bladder is decompressed. Reproductive: The uterus is normal. The left ovary is normal. The right ovary is normal. Bones/joints: There is very trace retrolisthesis of L5 on S1. There are mild degenerative changes of the hip joints. There is no evidence of acute fracture. Soft tissues: There is a tiny fat-containing umbilical hernia. There is a tiny fat containing midline ventral hernia approximately 4 cm above the umbilicus in the midline. IMPRESSION: Minimally prominent appendix measuring 6.5 mm with a trace amount of periappendiceal free fluid in the right lower quadrant. Recommend clinical correlation. Difficult to entirely exclude minor/early appendicitis in the appropriate clinical setting. Recommend surgical consultation. Tiny fat- containing umbilical hernia.
[2022-12-04 17:27] VITALS: BP 123/64; PULSE 97; RESP 16; TEMP 36.7; O2SAT 97; BMI 21.6
--- NOTE | 2022-12-04 17:54 | HMH.EDGENADL ---
Discharge Plan Disposition Patient Disposition: Admitted As Inpatient Prescriptions Prescriptions: No Action norethindrone (contraceptive) 0.35 mg tablet 0.35 mg PO DAILY multivitamin Tablet 1 tab PO DAILY metoprolol succinate 50 mg tablet extended release 24 hr 50 mg PO DAILY ondansetron 8 mg Tablet,Disintegrating 8 mg PO QID PRN (Reason: Nausea And Vomiting) Qty: 16 0RF dicyclomine 20 mg tablet 20 mg PO TID PRN (Reason: pain) Qty: 20 0RF Referrals Follow up/Referrals: Johnathan Duenas MD [Primary Care Provider] - See instructions Clinical Impressions Clinical Impression: Appendicitis Instructions Patient Instructions: DI for Acute Abdominal Pain Discharge ED Provider: Yordan Barrow General Adult HPI General Chief complaint: Abdominal Pain Stated complaint: right side abdominal pain Time Seen by Provider: 12/04/22 17:05 Mode of Arrival: Ambulatory Source of Information: Patient and Spouse Limitations: No Limitations Description of Symptoms (Recalled from ER Triage Doc. by RN): pt was seen in ED earlier today, received medication via IV, pt reports that it made her really nervous and panic so pt left ama. pt here now for ct scan. History of Present Illness HPI narrative: 27-year-old female evaluated earlier in the emergency department for right lower quadrant tenderness concerning for possible appendicitis. She had to leave AGAINST MEDICAL ADVICE but is back now to obtain her CT abdomen pelvis. No new changes in the interim. Related Data Home Medications Medication Instructions Recorded Confirmed metoprolol succinate 50 mg 50 mg PO DAILY . 08/27/21 12/01/22 tablet,extended release 24 hr multivitamin 1 tab PO DAILY . 09/25/21 12/01/22 norethindrone (contraceptive) 0.35 0.35 mg PO DAILY . 09/25/21 12/01/22 mg tablet Previous Rx's Medication Instructions Recorded dicyclomine 20 mg tablet 20 mg PO TID PRN pain #20 tabs 12/01/22 ondansetron 8 mg disintegrating 8 mg PO QID PRN Nausea And 12/01/22 tablet Vomiting #16 tabs Allergies Allergy/AdvReac Type Severity Reaction Status Date / Time No Known Allergies Allergy Verified 12/01/22 09:49 [facility] Disclaimer: The information contained in this section may have been updated after the patient was seen, as this information can be updated by other users. 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 (Updated 12/04/22 @ 18:35 by Yordan Barrow MD) Bilateral ankle pain Bilirubin in urine Dysuria Early satiety Epigastric pain Heartburn Loss of appetite Proteinuria Sore throat Surgical History History of cholecystectomy Family History (Updated 12/01/22 @ 09:49 by Daylin Goodman, RN) Other No significant family history 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 Smoking Status: Never smoker second hand exposure: No alcohol intake: current substance use type: denies use current occupational status: other Travel in the last 8 weeks: None household members: spouse and children housing: house current occupational exposures/hazards: No caffeine: Yes ROS Obtained: Yes All systems reviewed & no additional complaints except as documented Constitutional Constitutional: Denies fatigue and Denies weakness Eyes Eyes: Denies dry eyes ENT Ears, Nose, Mouth, and Throat: Denies dry mouth and Denies lip swelling Cardiovascular Cardiovascular: Denies diaphoresis and Denies dyspnea Respiratory Respiratory: Denies dyspnea Gastrointestinal Gastrointestingal: Denies constipation, nausea or vomiting Genitourinary Female Genitourinary: Denies dysuria and Denies hematuria Musculoskeletal Musculoskeletal: Denies joint swelling Integumentary/Breasts Skin/Breast: Denies redness and Denies rash Neurologic Neurologic: Denies confusion and Denies weakness Endocrine Endocrine: Denies fatigue Hematologic/Lymphatic Henatologic/Lymphatic: Denies easy brui
[2022-12-04 18:01] VITALS: BP 139/93; PULSE 63; RESP 18; O2SAT 96
--- NOTE | 2022-12-04 18:22 | PC.NURSE ---
ANTONELLA GARCIA speaking with asif
--- NOTE | 2022-12-04 18:26 | PC.NURSE ---
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 lucia BERMAN MD at discussing test results and POC
[2022-12-04 18:30] VITALS: BP 143/96; PULSE 62; RESP 18; O2SAT 99
--- NOTE | 2022-12-04 18:33 | PC.NURSE ---
per ER MD Dr. Monk states admit to his service for appendicitis, Dr. Monk states he will see pt in the morning. Notified senior housekeeper of admission.
[2022-12-04 18:38] LABS: Coronavirus 19, PCR Not Detected (NotDetected); Influenza A, PCR Not Detected (NotDetected); Influenza B, PCR Not Detected (NotDetected)
--- NOTE | 2022-12-04 19:04 | PC.NURSE ---
Pt updated that we are waiting to call report and then she will be going upstairs.
--- NOTE | 2022-12-04 19:26 | PC.NURSE ---
report called to grace on 2nd floor
[2022-12-04 19:40] VITALS: BP 137/74; PULSE 60; RESP 18; TEMP 36.7; O2SAT 99
--- NOTE | 2022-12-04 19:41 | PC.NURSE ---
Pt arrived to floor via wheelchair @ 193.
[2022-12-04 20:00] VITALS: BP 117/84; PULSE 75; RESP 20; TEMP 37.2; O2SAT 98; BMI 31.6
--- NOTE | 2022-12-04 23:26 | PC.NURSE ---
Spoke with Dr. Monk and made sure patient is aware she is here for observation and will be revaluated in the am with labs.
[2022-12-05] VITALS (16 sets, daily range): BP systolic 106–121; BP diastolic 66–79; PULSE 61–97; RESP 14–18; TEMP 36.3–43; O2SAT 91–99; BMI 31.6
--- NOTE | 2022-12-05 04:42 | PC.NURSE ---
Pt. had two episodes of nausea and medications given. No other changes noted.
--- NOTE | 2022-12-05 07:01 | EXP.GEN.HP ---
HPI HPI HPI: This is a 27-year-old female who presents emergency department with increasing right lower quadrant abdominal pain. Intermittent nausea noted. She has had vague abdominal pain for approximately 1 week with nausea/diarrhea. No fevers. A CT scan revealed a 6.5 mm appendix with trace. Prinosil fluid. [facility] Disclaimer: The information contained in this section may have been updated after the patient was seen, as this information can be updated by other users. 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 (Updated 12/04/22 @ 18:35 by Yordan Barrow MD) Bilateral ankle pain Bilirubin in urine Dysuria Early satiety Epigastric pain Heartburn Loss of appetite Proteinuria Sore throat Surgical History History of cholecystectomy Family History (Updated 12/01/22 @ 09:49 by Daylin Goodman, RN) No significant family history 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 Smoking Status: Never smoker second hand exposure: No alcohol intake: current substance use type: denies use current occupational status: other Travel in the last 8 weeks: None household members: spouse and children housing: house current occupational exposures/hazards: No caffeine: Yes Review of Systems Constitutional Constitutional: Denies weakness *Neurologic Neurologic: Denies confusion and Denies weakness Psychiatric Psychiatric: Denies confusion Meds Home Medications and Allergies Home Medications Medication Instructions Recorded Confirmed Type metoprolol succinate 50 mg 50 mg PO DAILY . 08/27/21 12/04/22 History tablet,extended release 24 hr multivitamin 1 tab PO DAILY . 09/25/21 12/04/22 History norethindrone (contraceptive) 0.35 0.35 mg PO DAILY . 09/25/21 12/04/22 History mg tablet sertraline 150 mg capsule 150 mg PO DAILY Anxiety 12/04/22 12/04/22 History New Prescriptions to Start Prescriptions: Allergies Allergy/AdvReac Type Severity Reaction Status Date / Time No Known Allergies Allergy Verified 12/01/22 09:49 Exam Data for Last 24 hours Vital signs and Labs for Last 24 Hours: Temp Pulse Resp BP Pulse Ox 98.5 F 76 18 117/79 96 12/05/22 04:00 12/05/22 04:00 12/05/22 04:00 12/05/22 04:00 12/05/22 04:00 Laboratory Results - last 24 hr 12/04/22 18:35: SARS-CoV-2 (PCR) Not detected, Influenza A Untype (PCR) Not detected, Influenza Type B (PCR) Not detected I & O for Last 24 hours: Intake & Output 12/02/22 12/03/22 12/04/22 12/05/22 11:59 11:59 11:59 11:59 Intake Total 400 / 400 Output Total 0 / 0 Balance 400 / 400 Weight 190 lb Constitutional Constitutional: no acute distress *Routine HEENT Exam Head: Present normocephalic Eye: Present EOMI ENT: Present mucous membranes moist *Routine Neck Exam Neck: Present full ROM Routine Chest/Breast/Axilla Exam Chest wall: Absent tenderness *Routine Respiratory Exam Respiratory: Absent respiratory distress *Routine Cardiovascular Exam Cardiovascular: Absent tachycardia *Routine Abdominal Exam Abdominal: Present soft and tenderness (Right lower quadrant tenderness to palpation) *Routine Rectal Exam Rectal:: deferred *Routine Genitalia Exam Genitalia:: deferred *Routine Extremities Exam Extremities: Present full ROM Routine Back/Spine/Pelvis Exam Back/Spine: Present full ROM *Routine Skin Exam Skin: Present intact *Routine Neurological Exam Neurological: Present alert and oriented X3 Routine Psychiatric Exam Psychiatric: Present normal affect Results Results Lab Results Last 24 Hours:: Laboratory Results - last 24 hr 12/04/22 18:35: SARS-CoV-2 (PCR) Not detected, Influenza A Untype (PCR) Not detected, Influenza Type B (PCR) Not detected CT scan - abdomen: report reviewed and image reviewed CT scan - pelvis: report reviewed and image reviewed Assessment and Plan *Assessment and plan (1) Appendicitis: Status: Acute
--- NOTE | 2022-12-05 07:05 | EXP.SURG.PN ---
Subjective Patient reports: no new complaints and still having pain Exam Data for Last 24 hours Vital signs and Labs for Last 24 Hours: Temp Pulse Resp BP Pulse Ox 98.5 F 76 18 117/79 96 12/05/22 04:00 12/05/22 04:00 12/05/22 04:00 12/05/22 04:00 12/05/22 04:00 Laboratory Results - last 24 hr 12/04/22 18:35: SARS-CoV-2 (PCR) Not detected, Influenza A Untype (PCR) Not detected, Influenza Type B (PCR) Not detected I & O for Last 24 hours: Intake & Output 12/02/22 12/03/22 12/04/22 12/05/22 11:59 11:59 11:59 11:59 Intake Total 400 / 400 Output Total 0 / 0 Balance 400 / 400 Weight 190 lb Constitutional Constitutional: no acute distress *Routine Respiratory Exam Respiratory: Absent respiratory distress *Routine Cardiovascular Exam Cardiovascular: Absent tachycardia *Routine Abdominal Exam Abdominal: Present tenderness Comments: No improvement noted with regard to right lower quadrant tenderness Progress Note: A&P Assessment and plan (1) Appendicitis: Status: Acute Assessment and plan: Although definitive diagnosis remains equivocal plans are to proceed with laparoscopic appendectomy. I discussed alternative options including repeat CT scan and continue serial abdominal exams. The patient wishes to forego further evaluation in order to proceed with surgery.
--- NOTE | 2022-12-05 07:35 | HMH.PHAINT1 ---
Pharmacy Intervention Comments: Medication reconciliation completed utilizing external fill history
[2022-12-05 07:41] LABS: Basophils # 0.1 K/mm3 (0-0.2); Basophils % 2.3 % (0.1-2.0); Eosinophils # 0.1 K/mm3 (0.0-0.4); Eosinophils % 1.3 % (0.1-12.0); Hematocrit 37.6 % (37.0-47.0); Hemoglobin 12.3 g/dL (12.2-16.2); Lymphocytes # 1.3 K/mm3 (0.7-4.5); Lymphocytes % 24.1 % (10-50); Mean Corpuscular HGB Conc 32.6 g/dL (31.8-35.4); Mean Corpuscular Hemoglobin 29.2 pg (27.0-31.2); Mean Corpuscular Volume 89.5 fl (81-99); Mean Platelet Volume 8.6 fl (7.4-10.4); Monocytes # 0.2 K/mm3 (0.1-1.0); Monocytes % 3.4 % (1.7-9.3); Neutrophils # 3.8 K/mm3 (1.8-7.8); Neutrophils % 68.9 % (37.0-80.0); Platelet Count 192 K/mm3 (142-424); Red Cell Distribution Width 13.3 % (11.5-17.5); White Blood Count 5.6 K/mm3 (4.8-10.8)
[2022-12-05 07:49] LABS: Chloride 111 mmol/L (98-107); Sodium 142 mmol/L (136-145)
[2022-12-05 07:50] LABS: Potassium 3.3 mmoL/L (3.5-5.1)
[2022-12-05 07:52] LABS: Anion Gap 8.3 mEq/L (5-15); Blood Urea Nitrogen 6 mg/dl (7-17); Carbon Dioxide 26 mmol/L (22.0-30.0); Creatinine Clearance Estimated 195 mL/min (50-200); Estimated Glomerular Filt Rate 122 ml/min (>60); GFR (African American) 147 ML/MIN (>60)
[2022-12-05 07:53] LABS: Calcium 7.9 mg/dl (8.4-10.2); Glucose 82 mg/dl (74-100)
--- NOTE | 2022-12-05 11:35 | PC.NURSE ---
Patient to OR via bed. Spouse at bedside
--- NOTE | 2022-12-05 11:43 | PC.NURSE ---
Patient to surgery department via bed. Spouse at bedside
--- NOTE | 2022-12-05 12:08 | EXP.ANES.CKL ---
[facility] Disclaimer: The information contained in this section may have been updated after the patient was seen, as this information can be updated by other users. 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 (Updated 12/04/22 @ 18:35 by Yordan Barrow MD) Bilateral ankle pain Bilirubin in urine Dysuria Early satiety Epigastric pain Heartburn Loss of appetite Proteinuria Sore throat Surgical History History of cholecystectomy Family History (Updated 12/01/22 @ 09:49 by Daylin Goodman RN) Other No significant family history 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 Smoking Status: Never smoker second hand exposure: No alcohol intake: current substance use type: denies use current occupational status: other Travel in the last 8 weeks: None household members: spouse and children housing: house current occupational exposures/hazards: No caffeine: Yes [facility] Anesthesia Checklist Patient Identification Patient Identification: Arm Band and Family Structural Data Admitted From: Home Planned Operative Procedure/s: Lap Appe Consent for Planned Operative Procedure(s) Verified: Yes Verified Documents: Surgical Consent and History and Physical NPO Status Verified Time NPO: 00:00 Additional verifications Patient : No Anesthesia Reactions: Yes (nausea/ vomitting) Hx Blood Transfusions: No Blood Transfusion Reaction: No Cephalosporin Allergy: No Previous Colonoscopy: No Airway Assessment C-Spine Mobility Assessed: Yes TMJ Mobility Assessed: Yes Dentition: Good Dentition Neurological Assessment Level of Consciousness: Awake, Alert, Appropriate and Follows Commands Hx Seizures: No Numbness or tingling in extremities: No Anesthesia Plan Anesthesia Risk discussed: Yes ASA Class: II Anesthesia Type: General Preoperative Comments Pre-Operative Comments: Anxious, PONV, Hypertension.
--- NOTE | 2022-12-05 13:51 | EXP.OP.NOTE ---
Date of procedure: 12/05/22 Pre-op Diagnosis:: Appendicitis Post-op Diagnosis:: Same Procedure performed:: Laparoscopic appendectomy Surgeon:: Srinath Monk MD Anesthesia: GETA Estimated blood loss (mL): 15 Operative findings:: Umbilical hernia with incarcerated preperitoneal fat utilized as 12 mm trocar site Mid/distal appendix with mild vascular injection and induration Operative note:: After informed consent was obtained the patient was taken to the operating room and placed in the supine position. General anesthesia was induced and her abdomen was prepped and draped in a sterile fashion. After infiltration local anesthetic a curvilinear infraumbilical incision was made. The deep subcutaneous tissue was dissected and her umbilical stump was elevated. Incarcerated preperitoneal fat was reduced through the umbilical hernia. A 12 mm trocar was placed in position. Under direct visualization an additional 5 mm trocar was placed in the suprapubic position and an additional 5 mm trocar was placed in the left lower quadrant. The appendix was carefully elevated. The mid/distal portion of the appendix was somewhat indurated and mild vascular injection noted. A window was made in the mesoappendix at its base. An Endopath 45 stapling device was utilized to transect the appendix at its base. The intervening mesentery was taken with harmonic evelia. The appendix was placed in a retrieval bag and removed through the 12 mm trocar site at the umbilicus. The right lower quadrant was thoroughly irrigated. No active bleeding or sign of injury was noted. The trocars were removed as pneumoperitoneum was released. The umbilical defect was reapproximated with interrupted 0 Ethibond. The umbilical stump was reapproximated with non-dyed Vicryl. Skin margins were closed with interrupted 4-0 Monocryl in a mattress fashion to facilitate hemostasis. Dressings were applied and the patient was transferred to recovery in stable condition after extubation. Condition: stable Disposition: PACU Specimens:: Appendix Complications:: No immediate
--- NOTE | 2022-12-05 13:54 | EXP.DC.SUM ---
General Admission date:: 12/04/22 Discharge date: 12/05/22 HPI HPI HPI: This is a 27-year-old female who presents emergency department with increasing right lower quadrant abdominal pain. Intermittent nausea noted. She has had vague abdominal pain for approximately 1 week with nausea/diarrhea. No fevers. A CT scan revealed a 6.5 mm appendix with trace. Prinosil fluid. Hospital Course Hospital Course Hospital Course: The patient was admitted for observation for serial abdominal exams given the equivocal findings on her CT scan and lack of significant abnormalities noted per laboratory results and hemodynamics. Follow-up evaluation revealed persistent McBurney's point tenderness and the decision was made to proceed with appendectomy. Please see operative report from laparoscopic appendectomy. The patient did have changes consistent with very early/mild appendicitis. Postoperatively she was afebrile with stable normal vital signs and deemed appropriate for discharge home with close outpatient follow-up. Exam Data for Last 24 hours Vital signs and Labs for Last 24 Hours: Temp Pulse Resp BP Pulse Ox 98.9 F 67 18 108/71 L 99 12/05/22 07:45 12/05/22 07:45 12/05/22 07:45 12/05/22 07:45 12/05/22 07:45 Laboratory Results - last 24 hr 12/04/22 18:35: SARS-CoV-2 (PCR) Not detected, Influenza A Untype (PCR) Not detected, Influenza Type B (PCR) Not detected 12/05/22 07:15: WBC 5.6, RBC 4.20, Hgb 12.3, Hct 37.6, MCV 89.5, MCH 29.2, MCHC 32.6, RDW 13.3, Plt Count 192, MPV 8.6, Neut % (Auto) 68.9, Lymph % (Auto) 24.1, Converse % (Auto) 3.4, Eos % (Auto) 1.3, Baso % (Auto) 2.3 H, Neut # (Auto) 3.8, Lymph # (Auto) 1.3, Converse # (Auto) 0.2, Eos # (Auto) 0.1, Baso # (Auto) 0.1 12/05/22 07:15: Sodium 142, Potassium 3.3 L, Chloride 111 H, Carbon Dioxide 26, Anion Gap 8.3, BUN 6 L D, Creatinine 0.60, Estimated Creat Clear 195, Estimated GFR 122, Est GFR ( Amer) 147, Glucose 82, Calcium 7.9 L I & O for Last 24 hours: Intake & Output 12/03/22 12/04/22 12/05/22 12/06/22 11:59 11:59 11:59 11:59 Intake Total 400 / 400 Output Total 0 / 0 Balance 400 / 400 Weight 190 lb Constitutional Constitutional: no acute distress *Routine HEENT Exam Head: Present normocephalic Eye: Present EOMI ENT: Present mucous membranes moist *Routine Neck Exam Neck: Present full ROM Routine Chest/Breast/Axilla Exam Chest wall: Absent tenderness *Routine Respiratory Exam Respiratory: Absent respiratory distress *Routine Cardiovascular Exam Cardiovascular: Absent tachycardia *Routine Abdominal Exam Abdominal: Present soft and tenderness *Routine Rectal Exam Patient deferred: visual exam and digital exam *Routine Exam Patient deferred: external exam *Routine Extremities Exam Extremities: Present full ROM Routine Back/Spine/Pelvis Exam Back/Spine: Present full ROM *Routine Skin Exam Skin: Absent erythema *Routine Neurological Exam Neurological: Present alert Routine Psychiatric Exam Psychiatric: Present normal affect Results Data Completed and Pending Labs on day of discharge: Labs from last 24 hours 12/05/22 12/05/22 12/04/22 07:15 07:15 18:35 WBC 5.6 RBC 4.20 Hgb 12.3 Hct 37.6 MCV 89.5 MCH 29.2 MCHC 32.6 RDW 13.3 Plt Count 192 MPV 8.6 Neut % (Auto) 68.9 Lymph % (Auto) 24.1 Converse % (Auto) 3.4 Eos % (Auto) 1.3 Baso % (Auto) 2.3 H Neut # (Auto) 3.8 Lymph # (Auto) 1.3 Converse # (Auto) 0.2 Eos # (Auto) 0.1 Baso # (Auto) 0.1 Sodium 142 Potassium 3.3 L Chloride 111 H Carbon Dioxide 26 Anion Gap 8.3 BUN 6 L D Creatinine 0.60 Estimated Creat Clear 195 Estimated GFR 122 Est GFR ( Amer) 147 Glucose 82 Calcium 7.9 L SARS-CoV-2 (PCR) Not detected Influenza A Untype (PCR) Not detected Influenza Type B (PCR) Not detected DS: Diagnosis Discharge Diagnosis (1) Appendicitis: Status: Acut
--- NOTE | 2022-12-05 14:18 | P.PNANES_ITS ---
[facility] Anesthesia Record Part I Anesthesia Record I Intake, IV Amount: 1,800 Estimated blood loss (mL): 20 Urine output (mL): 100 Blood Products used (#): none Blood Pressure: 117/77 SaO2: 91 Pulse Rate: 96 Respiratory Rate: 14 Temperature: 97.3 F Patient is:: Drowsy and Stable Stable to PACU at:: 13:58
--- NOTE | 2022-12-05 14:30 | PC.NURSE ---
Patient arrived from PACU via stretcher. Lap sites x 3 with tegaderm dry and intact. Patient drowsy but easily arousable. Pain secondary to moving to bed. Denies nausea. Spouse at bedside.
--- NOTE | 2022-12-05 14:41 | HMH.PHAINT1 ---
Pharmacy Intervention Comments: Discharge medications discussed with patient. Patient verbalized understanding and had no questions at this time.
[2022-12-05 15:02] LABS: Microscopic,Cath URINE MICROSCOPIC (MICROSCOPIC)
[2022-12-05 15:09] LABS: Appearance,Urine/Cath CLEAR (Clear); Blood, Urine/Cath Negative (Negative); Color,Urine/Cath YELLOW (Yellow); Glucose,Urine/Cath (UA) Negative (Negative); Ketones,Urine/Cath 1+ (Negative); Leukocyte Esterase,Cath Negative (Negative); Nitrate,Cath Negative (Negative); PH,Urine/Cath 6.5 (5.0-8.5); Protein,Urine/Cath Negative (Negative); Urobilinogen,Cath 0.2 EU/dl (0.2)
[2022-12-05 15:24] LABS: Bilirubin,Cath 1+ (Negative)
--- NOTE | 2022-12-09 07:29 | EXP.ANES.II ---
[facility] Anesthesia Record Part II Anesthesia Record Part II Discharge Time: 14:28 Destination: Second Floor PACU nurse assessment reviewed?: Yes Patient Condition:: Good Anesthesia Complications:: None Swallowing reflex intact?: Yes Cyanosis?: No Blood Pressure: 120/66 Pulse Rate: 73 Temperature: 98.5 F Mental Status: Alert & Oriented Pain level:: 6 Nausea and/or vomitting:: None Intake, IV Amount: 0
[2022-12-09 07:30] VITALS: BP 120/66; PULSE 73; TEMP 36.9
--- NOTE | 2022-12-09 13:49 | CARE MANAGER ---
Spoke with patient for post-discharge phone interview, no issues noted.
== END 2022-12-05 16:52 | disposition home or self-care (01) ==
LOC: ER 18:35 → 2ND 22:36
PROVIDERS: Admitting Provider Surgery; Emergency Provider Emergency Medicine; PCP Family Medicine; Visit Provider Surgery
PROC: 0DTJ4ZZ Resection of Appendix, Percutaneous Endoscopic Approach (ICD-10-PCS; CPT 44970; principal; 2022-12-05 10:00)
DX: K35.80 Unspecified acute appendicitis (principal); K42.0 Umbilical hernia with obstruction, without gangrene; Z20.822 Contact with and (suspected) exposure to COVID-19
CPT/HCPCS: 44970; 49592; 36415; 74177; 80048; 80053; 81001; 83690; 84703; 85025; 99284; 99285; C9803; G0378; J0696; J2405; Q9967; U0003; U0005

== ENCOUNTER 2022-12-12 01:09 | Emergency (ER) | payer OTHER, SELFPAY ==
[2022-12-12 01:26] VITALS: BP 139/84; PULSE 72; RESP 16; TEMP 36.8; O2SAT 98; BMI 36.6
--- NOTE | 2022-12-12 01:34 | CT_ITS ---
PROCEDURE INFORMATION: Exam: CT Abdomen And Pelvis With Contrast Exam date and time: 12/12/2022 2:04 AM Age: 27 years old Clinical indication: Abdominal pain; Prior surgery; Surgery date: 3-7 days post-operative; Surgery type: Appendectomy; Patient HX: Abd pain, denies fever TECHNIQUE: Imaging protocol: Computed tomography of the abdomen and pelvis with contrast. Radiation optimization: All CT scans at this facility use at least one of these dose optimization techniques: automated exposure control; mA and/or kV adjustment per patient size (includes targeted exams where dose is matched to clinical indication); or iterative reconstruction. Contrast material: ISOVUE; Contrast volume: 75 ml; Contrast route: IV; Other protocol: This patient has received [address] and 0 known cardiac nuclear medicine studies in the 12 months prior to the current study. COMPARISON: CT ABDOMEN PELVIS W CON 12/04/2022 5:48 PM FINDINGS: Liver: Normal. No mass. Gallbladder and bile ducts: Gallbladder is surgically absent. Pancreas: Normal. No ductal dilation. Spleen: Normal. No splenomegaly. Adrenal glands: Normal. No mass. Kidneys and ureters: Normal. No hydronephrosis. Stomach and bowel: Unremarkable. No obstruction. No mucosal thickening. Appendix: The appendix is surgically absent. Intraperitoneal space: Unremarkable. No free air. No significant fluid collection. Vasculature: Unremarkable. No abdominal aortic aneurysm. Lymph nodes: Unremarkable. No enlarged lymph nodes. Urinary bladder: Unremarkable as visualized. Reproductive: Unremarkable as visualized. Bones/joints: Unremarkable. No acute fracture. Soft tissues: Edema/inflammation at the umbilicus presumably due to recent laparoscopic surgery IMPRESSION: Edema/inflammation in the anterior abdominal wall at the umbilicus presumably from recent laparoscopic surgery. This may represent bland postoperative edema or infection, depending on clinical presentation. No well-defined abscess seen. No intraperitoneal pathology evident.
[2022-12-12 01:40] LABS: Urine Pregnancy, HCG Qual. Negative (Negative)
[2022-12-12 01:57] LABS: Basophils # 0.1 K/mm3 (0-0.2); Basophils % 1.2 % (0.1-2.0); Eosinophils # 0.2 K/mm3 (0.0-0.4); Eosinophils % 1.9 % (0.1-12.0); Hematocrit 39.9 % (37.0-47.0); Hemoglobin 13.2 g/dL (12.2-16.2); Lymphocytes # 2.2 K/mm3 (0.7-4.5); Lymphocytes % 26.9 % (10-50); Mean Corpuscular Hemoglobin 29.1 pg (27.0-31.2); Mean Platelet Volume 8.5 fl (7.4-10.4); Monocytes # 0.3 K/mm3 (0.1-1.0); Monocytes % 3.7 % (1.7-9.3); Neutrophils # 5.3 K/mm3 (1.8-7.8); Neutrophils % 66.3 % (37.0-80.0); Platelet Count 203 K/mm3 (142-424); Red Blood Count 4.54 M/mm3 (4.20-5.40); Red Cell Distribution Width 13.7 % (11.5-17.5)
[2022-12-12 02:04] LABS: Alanine Aminotransferase 26 U/L (12-78); Albumin/Globulin Ratio 1.3 (1.1-1.8); Alkaline Phosphatase 59 U/L (38-126); Aspartate Amino Transferase 18 U/L (14-36); Bilirubin,Total 0.6 mg/dl (0.2-1.3); Blood Urea Nitrogen 13 mg/dl (7-17); Calcium 8.6 mg/dl (8.4-10.2); Carbon Dioxide 28 mmol/L (22.0-30.0); Chloride 104 mmol/L (98-107); Creatinine Clearance Estimated 171 mL/min (50-200); Estimated Glomerular Filt Rate 102 ml/min (>60); GFR (African American) 123 ML/MIN (>60); Globulin 3.1 g/dL (1.3-3.2); Glucose 98 mg/dl (74-100); Magnesium 2.2 mg/dl (1.6-2.3); Sodium 137 mmol/L (136-145); Total Protein,Serum 7.1 g/dl (6.3-8.2)
[2022-12-12 02:10] LABS: C-Reactive Protein 15.9 mg/L (0-4)
[2022-12-12 02:55] LABS: Erythrocyte Sedimentation Rate 39 mm/hr (0-20)
[2022-12-12 03:20] VITALS: BP 111/70; PULSE 54; O2SAT 100
[2022-12-12 03:30] VITALS: BP 123/91; PULSE 58; O2SAT 100
--- NOTE | 2022-12-12 03:37 | HMH.EDGENADL ---
Discharge Plan Disposition Patient Disposition: Home, Self-Care Prescriptions Prescriptions: New pantoprazole [Protonix] 40 mg tablet,delayed release (DR/EC) 40 mg PO DAILY 28 Days Qty: 28 0RF No Action multivitamin Tablet 1 tab PO DAILY metoprolol succinate 50 mg tablet extended release 24 hr 50 mg PO DAILY levonorgestrel-ethinyl estrad [Aviane] 0.1-20 mg-mcg Tablet 1 tab PO DAILY ondansetron 8 mg tablet,disintegrating 8 mg PO QIDP PRN (Reason: Nausea) dicyclomine 20 mg tablet 20 mg PO TIDP PRN (Reason: stomach pain ) Label Comments: TAKE 1 TABLET BY MOUTH THREE TIMES DAILY NEEDED FOR PAIN sertraline 100 mg Tablet 150 mg PO DAILY Rx Instructions: patient takes 1.5 tabs PO QD hydrocodone-acetaminophen 7.5-325 mg tablet 1 tab PO Q6H PRN (Reason: post-op pain) Qty: 17 0RF Referrals Follow up/Referrals: Johnathan Duenas MD [Primary Care Provider] - See instructions Clinical Impressions Clinical Impression: Abdominal pain, GERD (gastroesophageal reflux disease) Instructions Patient Instructions: DI for Gastroesophageal Reflux Disease (GERD) Discharge ED Provider: Dang (ED),Gabriel Sandy General Adult HPI General Chief complaint: PAIN Stated complaint: Surgery 12/05/22 now with nausea,heartburn,pain Time Seen by Provider: 12/12/22 03:37 Mode of Arrival: Ambulatory Source of Information: Patient and Medical Record Limitations: No Limitations Description of Symptoms (Recalled from ER Triage Doc. by RN): Pt arrives to ed via private vehicle. Pt is post op day 7 following an appendectemy with an umbilical hernia repair by . C/O a painful knot in her umbilical area for 4 days with heart burn for prior 2 days. Pt also c/o nausea since last night. Pt states that she did call 's office this morning bc she was concerned about the knot in her upper umbilical area. Pt states that she was told by nurse that she should not be having that pain and that she should come to the ER if she begins to run a fever. History of Present Illness HPI narrative: pt with hx of recent surg - umbilical hernia repair and appendectomy - has gerd sx and nausea - no fever Onset (ago): day(s) Location: abdomen Severity: moderate Associated symptoms: denies other symptoms Related Data Home Medications Medication Instructions Recorded Confirmed metoprolol succinate 50 mg 50 mg PO DAILY High blood pressure 08/27/21 12/05/22 tablet,extended release 24 hr multivitamin 1 tab PO DAILY . 09/25/21 12/05/22 dicyclomine 20 mg tablet 20 mg PO TIDP PRN stomach pain 12/05/22 12/05/22 levonorgestrel-ethinyl estradiol 1 tab PO DAILY control 12/05/22 12/05/22 0.1 mg-20 mcg tablet (Aviane) ondansetron 8 mg disintegrating 8 mg PO QIDP PRN Nausea 12/05/22 12/05/22 tablet sertraline 100 mg tablet 150 mg PO DAILY Anxiety 12/05/22 12/05/22 Previous Rx's Medication Instructions Recorded hydrocodone 7.5 mg-acetaminophen 1 tab PO Q6H PRN post-op pain #17 12/05/22 325 mg tablet tabs pantoprazole 40 mg tablet,delayed 40 mg PO DAILY 4 weeks #28 tabs 12/12/22 release (Protonix) Allergies Allergy/AdvReac Type Severity Reaction Status Date / Time No Known Allergies Allergy Verified 12/01/22 09:49 [facility] Disclaimer: The information contained in this section may have been updated after the patient was seen, as this information can be updated by other users. 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 (Updated 12/12/22 @ 04:11 by Gabriel Leong (ED)MD) Appendicitis Bilateral ankle pain Bilirubin in urine Dysuria Early satiety Epigastric pain Exposure to COVID-19 virus Family history of pancreatic cancer Gastroenteritis Heartburn History of bronchitis Left against medical advice Loss of appetite Proteinuria Sore throat Spontaneous Viral syndrome Surgical History (Updated 12/08/22 @ 00:09 by Coty Hilliard) History of cholecystectomy Fami
[2022-12-12 04:03] VITALS: BP 123/91; PULSE 60; RESP 18; TEMP 36.6; O2SAT 98
== END 2022-12-12 04:29 | disposition home or self-care (01) ==
PROVIDERS: Emergency Provider Emergency Medicine; PCP Family Medicine
DX: R10.33 Periumbilical pain (principal); K21.9 Gastro-esophageal reflux disease without esophagitis; Z86.16 Personal history of COVID-19; Z80.8 Family history of malignant neoplasm of other organs or systems; Z90.49 Acquired absence of other specified parts of digestive tract
CPT/HCPCS: 74177; 80053; 81025; 83735; 85025; 85651; 86140; 96361; 96374; 96375; 99285; J2405; Q9967

== ENCOUNTER 2023-02-24 17:34 | Emergency (ER) | payer OTHER, SELFPAY ==
[2023-02-24] VITALS (8 sets, daily range): BP systolic 95–139; BP diastolic 48–88; PULSE 66–80; RESP 16–17; TEMP 36.6–36.9; O2SAT 99–100; BMI 36.6
--- NOTE | 2023-02-24 18:35 | EXP.UTC ---
Discharge Plan Disposition Patient Disposition: Still a Patient Condition: Fair Prescriptions Prescriptions: No Action multivitamin Tablet 1 tab PO DAILY metoprolol succinate 50 mg tablet extended release 24 hr 50 mg PO DAILY fluoxetine [Prozac] 20 mg capsule 20 mg PO DAILY Qty: 30 1RF levonorgestrel-ethinyl estrad [Aviane] 0.1-20 mg-mcg Tablet 1 tab PO DAILY pantoprazole [Protonix] 40 mg tablet,delayed release (DR/EC) 40 mg PO DAILY 28 Days Qty: 28 0RF Referrals Follow up/Referrals: Johnathan Duenas MD [Primary Care Provider] - See instructions Clinical Impressions Clinical Impression: Abdominal pain, Rectal bleeding Discharge ED Provider: Noe Hernandez [facility] [place] HPI General Stated complaint: Blood and burning with bowel movement Time Seen by Provider: 02/24/23 18:32 History of Present Illness Provider Complaint: She states she has been having bright red rectal bleeding and abdominal pain on and off for the past 1 week. She states that every time she has a bowel movement or passes gas she has moderated rectal bleeding. She denies any history of hemorrhoids. She denies rectal pain. She states that her abdominal pain is across the top of her abdomen and down the left side. She has a history of having appendectomy and hernia repair back in Nov 2022. She denies vomiting, but she has had some nausea. Related Data Home Medications Medication Instructions Recorded Confirmed metoprolol succinate 50 mg 50 mg PO DAILY High blood pressure 08/27/21 02/14/23 tablet,extended release 24 hr multivitamin 1 tab PO DAILY . 09/25/21 02/14/23 levonorgestrel-ethinyl estradiol 1 tab PO DAILY control 12/05/22 02/14/23 0.1 mg-20 mcg tablet (Aviane) Previous Rx's Medication Instructions Recorded pantoprazole 40 mg tablet,delayed 40 mg PO DAILY 4 weeks #28 tabs 12/12/22 release (Protonix) fluoxetine 20 mg capsule (Prozac) 20 mg PO DAILY #30 caps 02/14/23 Allergies Allergy/AdvReac Type Severity Reaction Status Date / Time No Known Allergies Allergy Verified 02/14/23 14:50 [facility] Disclaimer: The information contained in this section may have been updated after the patient was seen, as this information can be updated by other users. 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 Appendicitis Bilateral ankle pain Bilirubin in urine Dysuria Early satiety Epigastric pain Exposure to COVID-19 virus Family history of pancreatic cancer Gastroenteritis Heartburn History of bronchitis Left against medical advice Loss of appetite Major depressive disorder Posttraumatic stress disorder Proteinuria Sore throat Spontaneous Viral syndrome Surgical History History of ankle surgery History of appendectomy History of cholecystectomy Family History Other No significant family history 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 Smoking Status: Never smoker second hand exposure: No alcohol intake: current counseling given: No substance use type: denies use counseling given: No current occupational status: other details: [employer] Travel in the last 8 weeks: None adopted: No caregiver/support person: Yes (to her twins) foster care: No household members: spouse and children housing: house lives independently: Yes marital status: number of children: 2 number of grandchildren: 0 education level: high school service: No fci: No current occupational exposures/hazards: No Hx Recent Travel: No sexually active: Yes are you practicing safe sex: Yes caffeine: Yes physical activity: none anatoly/advent: None special anatoly needs: No working smoke detector in home: Yes fire extinguisher in home: Yes carbon monox detector in home: No firea
--- NOTE | 2023-02-24 19:06 | CT_ITS ---
PROCEDURE INFORMATION: Exam: CT Abdomen And Pelvis With Contrast Exam date and time: 02/24/2023 8:34 PM Age: 27 years old Clinical indication: Other: Blood in stool; Additional info: Abdominal burning, blood in stool TECHNIQUE: Imaging protocol: Computed tomography of the abdomen and pelvis with contrast. Radiation optimization: All CT scans at this facility use at least one of these dose optimization techniques: automated exposure control; mA and/or kV adjustment per patient size (includes targeted exams where dose is matched to clinical indication); or iterative reconstruction. Contrast material: ISOVUE; Contrast volume: 75 ml; Contrast route: IV; REPORTING DATA: Count of CT and Cardiac NM exams in prior 12 months: This patient has received 2 known CTs and 0 known cardiac nuclear medicine studies in the 12 months prior to the current study. COMPARISON: CT ABDOMEN PELVIS W CON 12/12/2022 02:04 FINDINGS: Liver: Normal. No mass. Gallbladder and bile ducts: Gallbladder is absent. Pancreas: Normal. No ductal dilation. Spleen: Normal. No splenomegaly. Adrenal glands: Normal. No mass. Kidneys and ureters: Normal. No hydronephrosis. Stomach and bowel: Unremarkable. No obstruction. No mucosal thickening. Appendix: The appendix is absent. Intraperitoneal space: Unremarkable. No free air. No significant fluid collection. Vasculature: Unremarkable. No abdominal aortic aneurysm. Lymph nodes: Unremarkable. No enlarged lymph nodes. Urinary bladder: Unremarkable as visualized. Reproductive: Unremarkable as visualized. Bones/joints: Unremarkable. No acute fracture. Soft tissues: Unremarkable. IMPRESSION: No acute findings.
[2023-02-24 19:25] LABS: Basophils % 0.3 % (0.1-2.0); Eosinophils # 0.1 K/mm3 (0.0-0.4); Eosinophils % 1.6 % (0.1-12.0); Hematocrit 40.5 % (37.0-47.0); Hemoglobin 13.6 g/dL (12.2-16.2); Lymphocytes # 1.9 K/mm3 (0.7-4.5); Lymphocytes % 25.4 % (10-50); Mean Corpuscular HGB Conc 33.6 g/dL (31.8-35.4); Mean Corpuscular Hemoglobin 29.3 pg (27.0-31.2); Mean Corpuscular Volume 87.3 fl (81-99); Mean Platelet Volume 8.5 fl (7.4-10.4); Monocytes # 0.4 K/mm3 (0.1-1.0); Monocytes % 4.8 % (1.7-9.3); Neutrophils # 4.9 K/mm3 (1.8-7.8); Neutrophils % 67.8 % (37.0-80.0); Platelet Count 204 K/mm3 (142-424); Red Blood Count 4.64 M/mm3 (4.20-5.40); Red Cell Distribution Width 13.6 % (11.5-17.5); White Blood Count 7.3 K/mm3 (4.8-10.8)
--- NOTE | 2023-02-24 19:29 | PC.NURSE ---
Pt presents with complaints of rectal bleeding that has been occurring since Nov 2022 when she had a umbilical hernia repair and appendectomy. Pt describes rectal blood dark in color and scant amount. No hx of hemorrhoids per pt, does admit to having intermittent nausea.
[2023-02-24 20:13] LABS: Microscopic, Urine URINE MICROSCOPIC (MICROSCOPIC)
[2023-02-24 20:16] LABS: Appearance,Urine CLEAR (Clear); Bilirubin,Urine Negative (Negative); Blood, Urine Negative (Negative); Color,Urine YELLOW (Yellow); Glucose,Urine (UA) Negative (Negative); Ketones,Urine Negative (Negative); Leukocyte Esterase,Urine TRACE (Negative); Nitrate,Urine Negative (Negative); PH,Urine 6.5 (5.0-8.5); Protein,Urine Negative (Negative); Specific Gravity, Urine 1.015 (1.005-1.030); Urobilinogen,Urine 0.2 EU/dl (0.2)
[2023-02-24 20:18] LABS: Urine Pregnancy, HCG Qual. Negative (Negative)
[2023-02-24 20:28] LABS: RBC,Urine Occasional #/hpf (0-3)
[2023-02-24 20:29] LABS: Bacteria,Urine Trace /lpf; Squamous Epithelial Cell,Urine 20-50 #/hpf (0-5)
[2023-02-24 20:49] LABS: Chloride 97 mmol/L (98-107); Potassium 4.2 mmoL/L (3.5-5.1); Sodium 137 mmol/L (136-145)
[2023-02-24 20:52] LABS: Alanine Aminotransferase 34 U/L (12-78); Albumin/Globulin Ratio 1.1 (1.1-1.8); Alkaline Phosphatase 66 U/L (38-126); Amylase 77 U/L (30-110); Anion Gap 15.2 mEq/L (5-15); Aspartate Amino Transferase 29 U/L (14-36); Bilirubin,Total 0.4 mg/dl (0.2-1.3); Blood Urea Nitrogen 11 mg/dl (7-17); Calcium 8.7 mg/dl (8.4-10.2); Carbon Dioxide 29 mmol/L (22.0-30.0); Creatinine Clearance Estimated 171 mL/min (50-200); Estimated Glomerular Filt Rate 102 ml/min (>60); GFR (African American) 123 ML/MIN (>60); Globulin 3.5 g/dL (1.3-3.2); Glucose 88 mg/dl (74-100); Lipase 54 U/L (23-300); Total Protein,Serum 7.5 g/dl (6.3-8.2)
--- NOTE | 2023-02-24 21:43 | PC.NURSE ---
Dr. Fox and this tech at [facility] for rectal exam
[2023-02-24 21:50] LABS: Occult Blood,Stool Positive (Negative)
--- NOTE | 2023-02-24 22:13 | HMH.EDABDPAI ---
Discharge Plan Disposition Patient Disposition: Home, Self-Care Condition: Good Prescriptions Prescriptions: No Action cyclobenzaprine 10 mg tablet 1 mg PO Q8HP PRN (Reason: Muscle Pain) Label Comments: TAKE 1 TABLET BY MOUTH EVERY 8 HOURS NEEDED FOR MUSCLE SPASMS desogestrel-ethinyl estradiol [Enskyce] 0.15-0.03 mg tablet 1 tab PO DAILY meloxicam 15 mg tablet 15 mg PO DAILY fluoxetine [Prozac] 20 mg capsule 20 mg PO DAILY Referrals Follow up/Referrals: Johnathan Duenas MD [Primary Care Provider] - See instructions Activity Restrictions/Add. Instructions Additional Instructions/Restrictions: Keep your follow up with the GI specialist as scheduled for further evaluation and possible scope if intermittent bleeding persists. If you have significant bleeding, persistent dizziness, shortness of breath with exertion or palpitations please return to the ER. Clinical Impressions Clinical Impression: Rectal bleeding, Constipation, Hemorrhoids Instructions Patient Instructions: DI for Rectal Bleeding Discharge ED Provider: Harlan Fox Abdominal Pain HPI General Chief Complaint: Abdominal Pain Stated Complaint: Blood and burning with bowel movement Time Seen by Provider: 02/24/23 18:32 Mode of Arrival: Ambulatory Source of Information: Patient Limitations: No Limitations Description of Symptoms (Recalled from ER Triage Doc. by RN): 27 F presents from [facility] for 1 day of rectal bleeding with BM, abdominal burning, nausea, fatigue, dizziness, and headache. History of Present Illness HPI narrative: 27 yo F presents with 1 day of stools that have blood around the stool in a moderate amount. She states the stool is formed and is otherwise normal color. She also states she has a long history of constipation and no hx of diverticulitis. She has had mild dizzines and some pain with defecation. She has had this issue in the past and is scheduled to see a GI physician on the . Related Data Home Medications Medication Instructions Recorded Confirmed cyclobenzaprine 10 mg tablet 1 mg PO Q8HP PRN Muscle Pain 02/24/23 02/24/23 desogestrel 0.15 mg-ethinyl 1 tab PO DAILY Contraception 02/24/23 02/24/23 estradiol 0.03 mg tablet (Enskyce) fluoxetine 20 mg capsule (Prozac) 20 mg PO DAILY Mood 02/24/23 02/24/23 meloxicam 15 mg tablet 15 mg PO DAILY Pain 02/24/23 02/24/23 Allergies Allergy/AdvReac Type Severity Reaction Status Date / Time No Known Allergies Allergy Verified 02/14/23 14:50 [facility] Disclaimer: The information contained in this section may have been updated after the patient was seen, as this information can be updated by other users. 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 Appendicitis Bilateral ankle pain Bilirubin in urine Dysuria Early satiety Epigastric pain Exposure to COVID-19 virus Family history of pancreatic cancer Gastroenteritis Heartburn History of bronchitis Left against medical advice Loss of appetite Major depressive disorder Posttraumatic stress disorder Proteinuria Sore throat Spontaneous Viral syndrome Surgical History History of ankle surgery History of appendectomy History of cholecystectomy Family History Other No significant family history 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 Smoking Status: Current every day smoker tobacco type: cigarettes second hand exposure: No alcohol intake: current counseling given: No substance use type: denies use counseling given: No current occupational status: other details: [employer] Travel in the last 8 weeks: None adopted: No caregiver/support person: Yes (to her twins) foster care: No household members: spouse and children housing: house lives independently: Yes marital status:
== END 2023-02-24 22:33 | disposition home or self-care (01) ==
LOC: UTC 17:37 → ER 19:00
PROVIDERS: Emergency Medicine; Emergency Provider Student in an Organized Health Care Education/Training Program; PCP Family Medicine
DX: R10.9 Unspecified abdominal pain (principal); K62.5 Hemorrhage of anus and rectum; K64.9 Unspecified hemorrhoids; F17.210 Nicotine dependence, cigarettes, uncomplicated
CPT/HCPCS: 74177; 80053; 81001; 81025; 82150; 82272; 83690; 85025; 96374; 96375; 99284; 99285; G0328; J2405; Q9967

== ENCOUNTER → 2023-02-26 08:11 | Outpatient (CLI) | payer OTHER, SELFPAY ==
--- NOTE | 2023-02-26 | MR_ITS ---
FINAL REPORT CLINICAL HISTORY: Right hip pain COMPARISON: None FINDINGS: Multi planar MR imaging was performed of the right hip after intra-articular dilute gadolinium solution. Contrast is confined to the joint space. The femoral heads have a normal smooth contour. The acetabular labrum appears intact. There is no bone marrow edema or osteochondral defects. No avascular necrosis. The abductor tendons appear intact. IMPRESSION: No significant internal derangement. Reviewed, Interpreted and Dictated by Nicho Jimenez MD Transcribed by Ariana Ross Authenticated and [facility]
--- NOTE | 2023-02-26 | IR_ITS ---
FINAL REPORT CLINICAL HISTORY: total ft 1:10, pain FINDINGS: LEFT HIP INJECTION FOR MRI ARTHROGRAM HISTORY: Left hip pain. PROCEDURE: After informed consent was obtained, a time-out was performed. Utilizing local anesthesia and sterile technique, with direct fluoroscopic guidance, access to the joint was obtained . A small amount of contrast was injected to confirm needle tip location. Additional gadolinium contrast was injected. IMPRESSION: Status post injection for MRI arthrogram without immediate complication. Please see MRI report. FLUOROSCOPY TIME: 35 seconds. 2 radiographs were obtained. Films reviewed , interpreted and dictated by Dr. Jimenez. Transcribed by Nash Yang PA-C. Reviewed, Interpreted and Dictated by Nicho Jimenez MD Transcribed by FLORENCIA Galindo Authenticated and [facility]
--- NOTE | 2023-02-26 | MR_ITS ---
FINAL REPORT CLINICAL HISTORY: Left hip pain COMPARISON: None FINDINGS: Multi planar MR imaging was performed of the left hip after intra-articular dilute gadolinium solution. Contrast is confined to the joint space. The femoral heads have a normal smooth contour. The acetabular labrum appears intact. There is no bone marrow edema or osteochondral defects. No avascular necrosis. The abductor tendons appear intact. IMPRESSION: No significant internal derangement. Reviewed, Interpreted and Dictated by Nicho Jimenez MD Transcribed by Ariana Ross Authenticated and . [facility]
--- NOTE | 2023-02-26 | IR_ITS ---
FINAL REPORT CLINICAL HISTORY: RIGHT AND LEFT HIP PAIN, total ft 1:10 FINDINGS: RIGHT HIP INJECTION FOR MRI ARTHROGRAM HISTORY: Right hip pain. PROCEDURE: After informed consent was obtained, a time-out was performed. Utilizing local anesthesia and sterile technique, with direct fluoroscopic guidance, access to the joint was obtained . A small amount of contrast was injected to confirm needle tip location. Additional gadolinium contrast was injected. IMPRESSION: Status post injection for MRI arthrogram without immediate complication. Please see MRI report. FLUOROSCOPY TIME: 35 seconds. 2 radiographs were obtained. Films reviewed , interpreted and dictated by Dr. Jimenez. Transcribed by Nash Yang PA-C. Reviewed, Interpreted and Dictated by Nicho Jimenez MD Transcribed by FLORENCIA Galindo Authenticated and [facility]
== END ==
PROVIDERS: PCP Family Medicine; Visit Provider Orthopaedic Surgery Adult Reconstructive Orthopaedic Surgery
DX: M25.551 Pain in right hip (principal); M25.552 Pain in left hip
CPT/HCPCS: 73525; 73722; A9576; Q9967

== ENCOUNTER 2023-03-06 08:00 | Outpatient (RCR) | payer OTHER, SELFPAY | END 2023-03-06 08:05 | disposition home or self-care (01) | LOC: PT 08:00 | PROVIDERS: PCP Family Medicine; Visit Provider Orthopaedic Surgery Adult Reconstructive Orthopaedic Surgery | DX: C54.2 Malignant neoplasm of myometrium (principal); M51.36 Other intervertebral disc degeneration, lumbar region | CPT/HCPCS: 20560; 97010; 97012; 97014; 97035; 97110; 97140; 97163; 97164; G0283 ==

== ENCOUNTER → 2023-07-02 23:17 | Outpatient (CLI) | payer OTHER, SELFPAY ==
[2023-07-05 11:34] LABS: Neisseria gonorrhoeae, NAA Negative (Negative)
== END ==
PROVIDERS: PCP Family Medicine; Visit Provider Obstetrics & Gynecology
DX: Z30.430 Encounter for insertion of intrauterine contraceptive device (principal)
CPT/HCPCS: 87491; 87591

== ENCOUNTER → 2023-07-04 11:51 | Outpatient (CLI) | payer OTHER, SELFPAY ==
[2023-07-05 09:59] LABS: Testosterone,Total 30 ng/dL (13-71)
== END ==
PROVIDERS: PCP Family Medicine; Visit Provider Obstetrics & Gynecology
DX: R53.83 Other fatigue (principal)
CPT/HCPCS: 36415; 84403

== ENCOUNTER → 2023-09-24 09:51 | Outpatient (CLI) | payer OTHER, SELFPAY ==
[2023-09-24 10:30] LABS: Basophils % 0.5 % (0.1-2.0); Eosinophils # 0.1 K/mm3 (0.0-0.4); Eosinophils % 1.5 % (0.1-12.0); Hematocrit 40.7 % (37.0-47.0); Hemoglobin 13.7 g/dL (12.2-16.2); Lymphocytes # 1.5 K/mm3 (0.7-4.5); Mean Corpuscular HGB Conc 33.7 g/dL (31.8-35.4); Mean Corpuscular Hemoglobin 30.6 pg (27.0-31.2); Mean Platelet Volume 8.6 fl (7.4-10.4); Monocytes # 0.3 K/mm3 (0.1-1.0); Monocytes % 4.7 % (1.7-9.3); Neutrophils # 4.3 K/mm3 (1.8-7.8); Neutrophils % 69.3 % (37.0-80.0); Platelet Count 231 K/mm3 (142-424); Red Blood Count 4.47 M/mm3 (4.20-5.40); Red Cell Distribution Width 13.6 % (11.5-17.5); White Blood Count 6.2 K/mm3 (4.8-10.8)
[2023-09-24 11:16] LABS: Alanine Aminotransferase 31 U/L (12-78); Alkaline Phosphatase 71 U/L (38-126); Anion Gap 9.2 mEq/L (5-15); Aspartate Amino Transferase 27 U/L (14-36); Bilirubin,Indirect 0.5 mg/dL (0.0-0.9); Bilirubin,Total 0.5 mg/dl (0.2-1.3); Bilirubin,Unconjugated 0.4 mg/dL (0.0-1.1); Blood Urea Nitrogen 9 mg/dl (7-17); Calcium 8.6 mg/dl (8.4-10.2); Carbon Dioxide 31 mmol/L (22.0-30.0); Chloride 100 mmol/L (98-107); Cholesterol 171 mg/dl (140-200); Estimated Glomerular Filt Rate 122 ml/min (>60); GFR (African American) 147 ML/MIN (>60); Glucose 83 mg/dl (74-100); HDL Cholesterol 57 mg/dl (40-60); Potassium 4.2 mmoL/L (3.5-5.1); Sodium 136 mmol/L (136-145); Total Protein,Serum 7.1 g/dl (6.3-8.2); Triglycerides 80 mg/dl (30-150); VLDL Cholesterol 16 mg/dL (0-40)
[2023-09-24 11:27] LABS: Direct LDL Cholesterol 95.65 mg/dL (100-129)
[2023-09-24 11:32] LABS: Free T4 (Free Thyroxine) 1.01 ng/dl (0.78-2.19)
[2023-09-24 11:47] LABS: Thyroid Stimulating Hormone 2.04 uIU/mL (0.465-4.68)
== END ==
LOC: LAB 09:52
PROVIDERS: PCP Family Medicine; Visit Provider Physician Assistant
DX: I49.1 Atrial premature depolarization (principal); R07.89 Other chest pain; R42 Dizziness and giddiness; R94.31 Abnormal electrocardiogram [ECG] [EKG]; R55 Syncope and collapse; K21.9 Gastro-esophageal reflux disease without esophagitis
CPT/HCPCS: 36415; 80048; 80061; 80076; 84439; 84443; 85025; 93225

== ENCOUNTER 2023-09-27 18:04 | Emergency (ER) | payer OTHER, SELFPAY ==
[2023-09-27 18:08] VITALS: BP 129/79; PULSE 114; RESP 20; TEMP 37.2; O2SAT 99; BMI 42.7
--- NOTE | 2023-09-27 18:12 | PC.NURSE ---
Dr. Ware at [facility] for pt eval
[2023-09-27 18:15] VITALS: PULSE 114
--- NOTE | 2023-09-27 18:16 | XR_ITS ---
PROCEDURE INFORMATION: Exam: XR Chest Exam date and time: 09/27/2023 6:20 PM Age: 27 years old Clinical indication: Dyspnea TECHNIQUE: Imaging protocol: Radiologic exam of the chest. Views: 1 view. COMPARISON: CR CXR CHEST(2 VIEWS-NOT PORTABLE) 08/21/2017 7:04 PM FINDINGS: Lungs: Mild atelectasis versus pneumonia in the lung bases. No consolidation. Pleural spaces: Unremarkable. No pleural effusion. No pneumothorax. Heart/Mediastinum: Unremarkable. No cardiomegaly. Bones/joints: Unremarkable. IMPRESSION: Mild atelectasis versus pneumonia in the lung bases
--- NOTE | 2023-09-27 18:17 | HMH.EDCP ---
Discharge Plan Disposition Patient Disposition: Home, Self-Care Prescriptions Prescriptions: New amoxicillin 500 mg capsule 1,000 mg PO TID 5 Days Qty: 30 0RF azithromycin 250 mg tablet See Rx Instructions .ROUTE .COMPLEX Qty: 6 0RF Rx Instructions: For 250 mg dose pack: take 500 mg today (day 1), then 250 mg for 4 days (days 2-5) No Action metoprolol succinate 50 mg tablet extended release 24 hr 50 mg PO DAILY ferrous sulfate [FeroSul] 325 mg (65 mg iron) tablet 325 mg PO DAILY montelukast 10 mg tablet 10 mg PO DAILY Patient Comments: TAKE 1 TABLET BY MOUTH ONCE DAILY loratadine 10 mg tablet 10 mg PO DAILY Patient Comments: TAKE 1 TABLET BY MOUTH ONCE DAILY DHA 200 mg capsule PO acetaminophen [Tylenol] 325 mg capsule 325 mg PO QID PRN Ubrelvy 100 mg tablet 100 mg PO ONCE PRN Patient Comments: TAKE 1 TABLET BY MOUTH NEEDED MAY TAKE SECOND DOSE AT LEAST 2 HOURS AFTER FIRST DOSE buspirone 10 mg tablet 10 mg PO BID Qty: 60 1RF Referrals Follow up/Referrals: Johnathan Duenas MD [Primary Care Provider] - See instructions Activity Restrictions/Add. Instructions Additional Instructions/Restrictions: Your palpitations and chest pain and shortness of breath evaluation were largely unremarkable your chest x-ray showed questionable atelectasis versus pneumonia and given the fact that you have had a mild cough we will err on the side of treating for pneumonia. Please continue to follow-up with your right of way manager as previously instructed return with any worsening symptoms. No cardiopulmonary emergency was identified today. Clinical Impressions Clinical Impression: Chest pain, Palpitations, Dyspnea, CAP (community acquired pneumonia) Discharge ED Provider: Indio Ware HPI General Chief Complaint: Chest Pain Stated Complaint: Chest pain Time Seen by Provider: 09/27/23 18:11 Mode of Arrival: Ambulatory Source of Information: Patient Limitations: No Limitations Description of Symptoms (Recalled from ER Triage Doc. by RN): chest pain that is midsternal and dull in nature but radiates down the right side. pt saw cardiology office this past week and they have ordered a echo and stress test. 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 She states she has had some chronic discomfort in her chest that is been associated with palpitations and she recently was seen by right of way manager and wore a Holter monitor and has not yet had those results back. She also states she has been having chest pain since last night that is been constant which is a new and different symptom that she is been having in the past. Denies any exertional symptoms diaphoresis but does have some shortness of breath associated with this. She is not on any control pills no history of DVT or PE no history of any clotting disorder in her family that she is aware of. No recent or prolonged immobilizations hemoptysis or unilateral leg swelling. Patient also states she is having a headache and that she just feels like crap. When asked to articulate that further she mainly states that it is a fatigue that is bothering her the most. She has established follow-up with her cardiology office here at [facility]. Related Data Home Medications Medication Instructions Recorded Confirmed metoprolol succinate 50 mg 50 mg PO DAILY 07/02/23 09/24/23 tablet,extended release 24 hr acetaminophen 325 mg capsule 325 mg PO QID PRN 09/24/23 09/24/23 (Tylenol) docosahexaenoic acid 200 mg mg PO 09/24/23 09/24/23 capsule ( DHA) ferrous sulfate 325 mg (65 mg 325 mg PO DAILY 09/24/23 09/24/23 iron) tablet (FeroSul) loratadine 10 mg tablet 10 mg PO DAILY 09/24/23 09/24/23 montelukast 10 mg tablet 10 mg PO DAILY 09/24/23 09/24/23 ubrogepant 100 mg tablet (Ubrelvy) 100 mg PO ONCE PRN 09/24/23 09/24/23 Previous Rx's Medication Instructio
--- NOTE | 2023-09-27 18:26 | PC.NURSE ---
XR AT BEDSIDE
[2023-09-27 18:29] LABS: Basophils % 0.2 % (0.1-2.0); Eosinophils # 0.1 K/mm3 (0.0-0.4); Eosinophils % 1.3 % (0.1-12.0); Hematocrit 38.2 % (37.0-47.0); Hemoglobin 13.2 g/dL (12.2-16.2); Lymphocytes # 0.6 K/mm3 (0.7-4.5); Lymphocytes % 12.2 % (10-50); Mean Corpuscular HGB Conc 34.6 g/dL (31.8-35.4); Mean Corpuscular Volume 89.5 fl (81-99); Monocytes # 0.4 K/mm3 (0.1-1.0); Monocytes % 7.3 % (1.7-9.3); Neutrophils # 3.9 K/mm3 (1.8-7.8); Platelet Count 174 K/mm3 (142-424); Red Blood Count 4.26 M/mm3 (4.20-5.40); Red Cell Distribution Width 13.7 % (11.5-17.5)
[2023-09-27 18:33] LABS: Magnesium 1.6 mg/dl (1.6-2.3)
[2023-09-27 18:34] LABS: Alanine Aminotransferase 35 U/L (12-78); Albumin/Globulin Ratio 1.2 (1.1-1.8); Alkaline Phosphatase 63 U/L (38-126); Anion Gap 7.7 mEq/L (5-15); Aspartate Amino Transferase 30 U/L (14-36); Bilirubin,Total 0.4 mg/dl (0.2-1.3); Blood Urea Nitrogen 10 mg/dl (7-17); Calcium 8.6 mg/dl (8.4-10.2); Carbon Dioxide 33 mmol/L (22.0-30.0); Chloride 99 mmol/L (98-107); Creatinine Clearance Estimated 93 mL/min (50-200); Estimated Glomerular Filt Rate 102 ml/min (>60); GFR (African American) 123 ML/MIN (>60); Globulin 3.4 g/dL (1.3-3.2); Glucose 86 mg/dl (74-100); Potassium 3.7 mmoL/L (3.5-5.1); Sodium 136 mmol/L (136-145); Total Protein,Serum 7.4 g/dl (6.3-8.2)
[2023-09-27 18:38] LABS: D-Dimer 0.71 ug/mL (0.0-0.5)
[2023-09-27 18:47] LABS: NT Pro Brain Natriuretic Pep. 27.4 pg/mL (0-125)
[2023-09-27 18:55] LABS: Troponin I < 0.01 ng/ml (0.00-0.034)
[2023-09-27 19:06] LABS: Thyroid Stimulating Hormone 1.15 uIU/mL (0.465-4.68)
[2023-09-27 19:39] VITALS: BP 128/72; PULSE 68; RESP 20; TEMP 36.7; O2SAT 99
--- NOTE | 2023-09-27 19:43 | PC.NURSE ---
rounded on pt, no needs at this time
== END 2023-09-27 19:44 | disposition home or self-care (01) ==
PROVIDERS: Emergency Provider Student in an Organized Health Care Education/Training Program; PCP Family Medicine
DX: R07.9 Chest pain, unspecified (principal); R00.2 Palpitations; J18.9 Pneumonia, unspecified organism; R06.02 Shortness of breath; R51.9 Headache, unspecified; F32.9 Major depressive disorder, single episode, unspecified; F43.10 Post-traumatic stress disorder, unspecified; Z87.891 Personal history of nicotine dependence
CPT/HCPCS: 71045; 80053; 83735; 83880; 84443; 84484; 85025; 85378; 96361; 96374; 99285

== ENCOUNTER → 2023-10-13 06:17 | Outpatient (CLI) | payer OTHER, SELFPAY ==
--- NOTE | 2023-10-13 | CA_ITS ---
APPROVED REPORT Exam: Pharmacologic Technologist: Denisha Lawrence, Ht: 5 ft 1 in Wt: 226 lbs BSA: 1.99 m2 HR: 59 bpm BP: 107/60 mmHg Rhythm: NSR 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 Medications: Metoprolol Succinate,,,,, Buspirone,,,,, Tylenol,,,,, Montelukast,,,,, LoraTADINE,,,,, Ferosol,,,,, Stress Test Details Test: LEXISCAN HR Resting HR: 66 bpm Max Heart Rate (APMHR): 194 bpm Max HR Achieved: 113 bpm Target HR (85% APMHR): 165 bpm % of APMHR: 58 Recovery HR: 72 bpm BP Resting BP: 107/60 mmHg Max BP: 156/2 mmHg Recovery BP: 98.0/60.0 mmHg ECG Resting ECG: NSR, T wave changes in inferior and lateral leads Stress ECG: No ST changes Arrhythmia: None Clinical Exercise duration: 04:01 min Highest Stage Achieved: Exercise capacity: 1.0 METs Stress ECG Conclusion During lexiscan pt experinced tightness in chest and drop in BP No arrhythmias noted. No significant ST changes Conclusion: Nondiagnostic Lexiscan due to baseline abnormalities Dizziness noted with drop in BP. Test Summary REST . . . . . . . Sitting REST 11:23 . . 66 . 107/ 60 . . Stage 1 01:00 . . 108 . . . . Stage 2 01:00 . . 83 . 116/ 64 . . Stage 3 01:00 . . 78 . 105/ 62 . . Stage 4 01:00 . . 82 . 102/ 59 . . Stage 4 01:01 . . 82 . 102/ 59 . Stop exercise at 04:01 RECOVERY 01:00 . . 80 . . . . RECOVERY 02:00 . . 88 . 98/ 60 . . RECOVERY 03:00 . . 71 . 103/ 65 . . RECOVERY 03:17 . . 77 . 103/ 65 . . Electronically signed by : Lalitha Call MD 10/15/2023 09:46:09
--- NOTE | 2023-10-13 06:18 | CA_ITS ---
APPROVED REPORT EXAM: Comprehensive 2D, Doppler, and color-flow Echocardiogram Drafter Structural: Alyce Brown RDCS Ht: 5 ft 1 in Wt: 226lbs BSA: 1.99 BP: 120/80 mmHg Indications: CP,NAI, M-Mode Dimensions RVDd 2.48 cm (0.9-2.6) LA Diam 3.23 cm (1.9-4.0) LVDd 4.88 cm (3.5-5.7) LVDs 3.23 cm (3.5-5.7) IVSd 0.83 cm (0.6-1.1) PWd 1.04 cm (0.6-1.1) EF (Teich) 62.50% FS 33.80% EDV (Teich) 111.70 mL ESV (Teich) 41.90 mL LV Diastology E Decel Time 183 (160-240 msec) E/A Ratio 1.7 Mitral Valve MV E Max Junito. 68.0 (40-130 cm/s) MV A Velocity 39.0 (40-130 cm/s) E/A Ratio 1.74 MV PHT 54.0 ms Tricuspid Valve TR P. Velocity 219.00 cm/s RAP Estimate 10.00 mmHg RVSP 29.10 mmHg Left Ventricle The left ventricle is normal size. The left ventricular systolic function is normal. The left ventricular ejection fraction is within the normal range. There is normal left ventricular wall thickness. There is normal LV segmental wall motion. The left ventricular diastolic function is normal. LVEF is 55%. Right Ventricle The right ventricle is normal size. The right ventricular systolic function is normal. Atria The left atrium size is normal. The right atrium size is normal. There is no Doppler evidence of interatrial shunt. Aortic Valve The aortic valve is trileaflet. The aortic valve opens well. There is no aortic valvular stenosis. Trace aortic regurgitation. Mitral Valve The mitral valve is normal in structure. No evidence of mitral valve stenosis. Mild mitral regurgitation. Tricuspid Valve The tricuspid valve leaflets are thin and pliable. Mild tricuspid regurgitation. RVSP is 20-25 mmHg. Pulmonic Valve The pulmonary valve is normal in structure. Mild pulmonic regurgitation. Great Vessels The aortic root is normal in size. The ascending aorta is normal in size. IVC is normal in size and collapses >50% with inspiration. Pericardium There is no pericardial effusion. Other Information Study Quality: Adequate Conclusion Normal biventricular systolic function. Mild MR, mild TR, mild NV. Electronically signed by : Lalitha Call MD 10/15/2023 09:44:19
--- NOTE | 2023-10-13 06:21 | NM_ITS ---
APPROVED REPORT Exam: Nuclear Stress Test Indication: OBESITY, FM HX, C.P., SOB, PALPITATIONS, SYNCOPE Patient Location: Outpatient Stress Tech: Denisha MEIER Tech:Afshan Navarro ARRT RT (R)(N)(M) Ht: 5 ft 1 in Wt: 220 lbs Bra Size: D HR: 66 bpm BP: 107/60 mmHg BSA: 1.97 m2 Rhythm: NSR TID: 1.20 BMI: 41.5 History: OBESITY, FM HX, C.P., SOB, PALPITATIONS, SYNCOPE Procedure: Patient received 0.4 mg of intravenous Lexiscan, resting heart rate 66 bpm, resting blood pressure 107/60 mmHg, with Lexiscan maximum heart rate achieved was 113 bpm which is % of the maximum predicted heart rate and blood pressure was 116/64 mmHg. With Lexiscan, patient denied any complaint of chest pain. Cardiac Stress and Resting SPECT Images: Cardiac Stress and Resting SPECT images were obtained using technetium 99m Myoview 30.5 mCi stress and 9.97 mCi at rest. Resting and stress imaging in supine and prone positions demonstrate no evidence of fixed or reversible perfusion defects. There is borderline increase in transient ischemic dilatation (TID 1.20), which may be suggestive of possible multivessel disease or balanced ischemia in the right clinical setting. Gated imaging demonstrates normal global and regional LV systolic function. LVEF is calculated at 63%. Conclusion: No evidence of fixed or reversible perfusion defects. There is borderline increase in transient ischemic dilatation (TID 1.20), which may be suggestive of possible multivessel disease or balanced ischemia in the right clinical setting. Gated imaging demonstrates normal global and regional LV systolic function. LVEF is calculated at 63%. Electronically signed by : Lalitha Call MD 10/15/2023 09:47:59
== END ==
PROVIDERS: PCP Family Medicine; Visit Provider Physician Assistant
DX: I49.1 Atrial premature depolarization (principal); K21.9 Gastro-esophageal reflux disease without esophagitis; R07.89 Other chest pain; R42 Dizziness and giddiness; R55 Syncope and collapse; R94.31 Abnormal electrocardiogram [ECG] [EKG]
CPT/HCPCS: 78452; 93017; 93018; 93306; A9502; J2785

== ENCOUNTER 2023-11-13 14:30 | Outpatient (CLI) | payer BC, SELFPAY ==
[2023-11-13 15:52] LABS: HCG,Quantitative < 2 mIU/ml (0-5.42)
== END 2023-11-13 23:59 ==
LOC: LAB 14:31
PROVIDERS: PCP Family Medicine; Visit Provider Obstetrics & Gynecology
DX: N92.6 Irregular menstruation, unspecified (principal)
CPT/HCPCS: 84702

== ENCOUNTER → 2023-11-20 14:38 | Outpatient (CLI) | payer BC, SELFPAY | LOC: SL 14:39 | PROVIDERS: PCP Family Medicine; Visit Provider Physician Assistant | DX: R06.83 Snoring (principal); G47.36 Sleep related hypoventilation in conditions classified elsewhere | CPT/HCPCS: G0399 ==

== ENCOUNTER 2023-12-04 14:17 | Outpatient (CLI) | payer BC, SELFPAY ==
--- NOTE | 2023-12-04 14:18 | US_ITS ---
PROCEDURE INFORMATION: Exam: US Left Breast, Complete Exam date and time: 12/04/2023 2:23 PM Age: 28 years old Clinical indication: Palpable abnormality in the left axilla TECHNIQUE: Imaging protocol: Complete ultrasound of all four quadrants of the left breast and the retroareolar regions, including ultrasound of the axilla when performed. COMPARISON: No relevant prior studies available. FINDINGS: Breast: Sonographic images of the left breast including the retroareolar region, all 4 quadrants and the axilla do not demonstrate any solid or cystic masses. No architectural distortion or acoustical shadowing. No skin thickening or axillary adenopathy. The patient reports a palpable abnormality in the left axilla. No suspicious findings are seen. No solid or cystic masses are noted. IMPRESSION: Palpable abnormality in the left axilla corresponds sonographically to normal axillary contents. Further evaluation of a palpable abnormality should be based on clinical grounds regardless of radiographic findings or lack thereof. ASSESSMENT: BI-RADS Category 1: Negative
== END 2023-12-04 23:59 ==
LOC: RAD 14:18
PROVIDERS: PCP Family Medicine; Visit Provider Obstetrics & Gynecology
DX: N63.20 Unspecified lump in the left breast, unspecified quadrant (principal)
CPT/HCPCS: 76641

== ENCOUNTER 2024-01-03 11:30 | Emergency (ER) | payer BC, SELFPAY ==
[2024-01-03 11:45] VITALS: BP 115/65; PULSE 75; RESP 18; TEMP 36.5; O2SAT 100; BMI 43.4
[2024-01-03 12:04] LABS: UTC Influenza A Antigen Negative (Negative)
[2024-01-03 12:05] LABS: UTC Influenza B Antigen Negative (Negative)
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
[2024-01-03] MEDS: FAMOTIDINE 20MG TABLET 10 MG PO (12:27)
[2024-01-03 12:42] LABS: Apearance,Urine Clear (Clear); Bilirubin,Urine 1+ (Negative); Blood, Urine Negative (Negative); Color,Urine Dark Yellow (Yellow); Glucose,Urine (UA) Negative (Negative); Ketones,Urine Negative (Negative); PH,Urine 5.5 (5.0-8.5); Protein,Urine Trace (Negative); UTC Leukocyte Esterase,Urine Trace (Negative); UTC Nitrate,Urine Negative (Negative); UTC Pregnancy Test, Urine Positive (Negative); Urobilinogen,Urine 1 EU/dl (0.2)
[2024-01-03 13:47] LABS: HCG,Quantitative 23494 mIU/ml (0-5.42)
[2024-01-03 14:10] VITALS: BP 129/75; PULSE 72; RESP 18; TEMP 36.8; O2SAT 98
[2024-01-03 15:59] LABS: HCG Qualitative, Serum Positive (Negative)
== END 2024-01-03 14:10 | disposition home or self-care (01) ==
PROVIDERS: Emergency Provider Nurse Practitioner Family; PCP Family Medicine
DX: O23.41 Unspecified infection of urinary tract in pregnancy, first trimester (principal); B96.89 Other specified bacterial agents as the cause of diseases classified elsewhere; Z3A.01 Less than 8 weeks gestation of pregnancy; R11.0 Nausea; K21.9 Gastro-esophageal reflux disease without esophagitis; N39.0 Urinary tract infection, site not specified
CPT/HCPCS: 81003; 81025; 84702; 84703; 87086; 87804; 99204; 99212; G0463

== ENCOUNTER 2024-01-06 08:09 | Outpatient (CLI) | payer BC, SELFPAY | END 2024-01-06 23:59 | LOC: LAB.DROPOF 01-07 08:10 | PROVIDERS: PCP Obstetrics & Gynecology; Visit Provider Obstetrics & Gynecology | DX: Z3A.12 12 weeks gestation of pregnancy (principal) ==

== ENCOUNTER 2024-01-06 09:59 | Outpatient (CLI) | payer BC, SELFPAY ==
--- NOTE | 2024-01-06 10:00 | US_ITS ---
PROCEDURE: US OB <= 14 WEEKS FETUS CLINICAL INDICATION: dates COMPARISON: No exams were available for comparison FINDINGS: Transvaginal sonographic images of the pelvis were obtained. From her last menstrual period she is 7weeks 1day. An intrauterine gestational sac is present with a pole with a crown-rump length of 0.72cm This correlates to a gestational age of 6weeks 5days. heart tones are present with an FHR of 123bpm. Yolk sac is noted. The yolk sac measures 4.5mm. There is a small subchorionic hemorrhage. The right ovary is seen and appears normal. The left ovary is seen and appears normal. There is a 1.9 cm follicle on the left ovary. There is no fluid in the cul-de-sac. IMPRESSION: 1. Viable fetus within the uterine cavity currently measuring 6 weeks 5 days. 2. This correlates with her LMP and the SJ will remain 08/23/2024. 3. There is a small cystic area in the lower uterine segment/upper cervix. Suggest follow-up in 1 week. 4. Both ovaries are seen and appear normal. 5. No fluid in the cul-de-sac Dictated by: Itz Lamb MD 01/07/2024 03:32 Itz Lamb MD in [place] 01/07/2024 03:32
[2024-01-06 11:33] LABS: Basophils % 0.5 % (0.1-2.0); Eosinophils # 0.1 K/mm3 (0.0-0.4); Eosinophils % 1.1 % (0.1-12.0); Hematocrit 40.8 % (37.0-47.0); Hemoglobin 14.1 g/dL (12.2-16.2); Lymphocytes # 1.3 K/mm3 (0.7-4.5); Lymphocytes % 26.3 % (10-50); Mean Corpuscular HGB Conc 34.5 g/dL (31.8-35.4); Mean Corpuscular Hemoglobin 31.8 pg (27.0-31.2); Mean Corpuscular Volume 92.2 fl (81-99); Mean Platelet Volume 8.7 fl (7.4-10.4); Monocytes # 0.2 K/mm3 (0.1-1.0); Monocytes % 4.7 % (1.7-9.3); Neutrophils # 3.3 K/mm3 (1.8-7.8); Neutrophils % 67.5 % (37.0-80.0); Platelet Count 190 K/mm3 (142-424); Red Blood Count 4.42 M/mm3 (4.20-5.40); Red Cell Distribution Width 14.8 % (11.5-17.5); White Blood Count 4.9 K/mm3 (4.8-10.8)
[2024-01-07 09:21] LABS: HIV Screen 4th Generation wRfx Non Reactive (Non Reactive)
[2024-01-07 11:21] LABS: Rubella Antibodies, IgG 2.44 index (Immune >0.99)
[2024-01-07 12:16] LABS: Rapid Plasma Reagin Ab Titer Non Reactive titer (NonRea<1:1)
[2024-01-08 09:34] LABS: Hepatitis B Surface Antigen Negative
[2024-01-08 09:35] LABS: Hepatitis C Antibody Non Reactive
[2024-01-08 21:08] LABS: Neisseria gonorrhoeae, NAA Negative (Negative)
== END 2024-01-06 23:59 ==
LOC: RAD 10:00
PROVIDERS: PCP Family Medicine; Visit Provider Obstetrics & Gynecology
DX: O26.891 Other specified pregnancy related conditions, first trimester (principal); Z3A.12 12 weeks gestation of pregnancy
CPT/HCPCS: 36415; 76801; 85025; 86593; 86703; 86762; 86850; 87340; 87380; 87491; 87591; G0432

== ENCOUNTER 2024-01-07 13:58 | Outpatient (CLI) | payer BC, SELFPAY | END 2024-01-07 23:59 | LOC: LAB 13:58 | PROVIDERS: PCP Family Medicine; Visit Provider Obstetrics & Gynecology | DX: O26.891 Other specified pregnancy related conditions, first trimester (principal); Z3A.01 Less than 8 weeks gestation of pregnancy | CPT/HCPCS: 36415; 84144; 87086 ==

== ENCOUNTER 2024-01-15 13:47 | Outpatient (CLI) | payer BC, SELFPAY ==
--- NOTE | 2024-01-15 13:48 | US_ITS ---
PROCEDURE: US OB <= 14 WEEKS FETUS CLINICAL INDICATION: sm cystic area in the lower uterine segment COMPARISON: US US OB <= 14 WEEKS FETUS from 01/06/2024 FINDINGS: Transvaginal sonographic images of the pelvis were obtained. From her last menstrual period she is 8weeks 3days. A small amount fluid within the cervical canal. It measures 0.6 cm x 0.6 cm. An intrauterine gestational sac is present with a pole with a crown-rump length of 1.58cm This correlates to a gestational age of 8weeks 0 days. heart tones are present with an FHR of 170bpm. Yolk sac is noted. The yolk sac measures 5.5mm. There continues to be a small subchorionic hemorrhage. The right ovary is seen and appears normal. It measures 2.4 cm x 2.2 cm x 1.6 cm. The left ovary is seen and appears normal. It measures 2.2 cm x 1.2 cm x 1.9 cm. There is no fluid in the cul-de-sac. IMPRESSION: 1. Viable fetus within the uterine cavity that currently measures 8 weeks 0 days. Yolk sac is noted and measures 5.5 mm. 2. There continues to be a small subchorionic hemorrhage. 3. Both ovaries are seen and appear normal. 4. There is a small amount of fluid in the cervix. Dictated by: Itz Lamb MD 01/15/2024 14:29 Itz Lamb MD in [facility] 01/15/2024 14:29
== END 2024-01-15 23:59 ==
LOC: RAD 13:48
PROVIDERS: PCP Family Medicine; Visit Provider Obstetrics & Gynecology
DX: O26.891 Other specified pregnancy related conditions, first trimester (principal); Z3A.08 8 weeks gestation of pregnancy; R93.89 Abnormal findings on diagnostic imaging of other specified body structures; O10.919 Unspecified pre-existing hypertension complicating pregnancy, unspecified trimester
CPT/HCPCS: 76801

== ENCOUNTER 2024-01-16 14:54 | Outpatient (CLI) | payer BC, SELFPAY ==
[2024-01-16 16:02] LABS: Chloride 103 mmol/L (98-107); Potassium 3.7 mmoL/L (3.5-5.1); Sodium 136 mmol/L (136-145)
[2024-01-16 16:05] LABS: Alanine Aminotransferase 22 U/L (12-78); Albumin Level 3.7 g/dl (3.5-5.0); Albumin/Globulin Ratio 1.3 (1.1-1.8); Alkaline Phosphatase 66 U/L (38-126); Anion Gap 8.7 mEq/L (5-15); Aspartate Amino Transferase 22 U/L (14-36); Bilirubin,Total 0.4 mg/dl (0.2-1.3); Blood Urea Nitrogen 6 mg/dl (7-17); Carbon Dioxide 28 mmol/L (22.0-30.0); Estimated Glomerular Filt Rate 149 ml/min (>60); GFR (African American) 180 ML/MIN (>60); Globulin 2.8 g/dL (1.3-3.2); Glucose 74 mg/dl (74-100); Magnesium 1.9 mg/dl (1.6-2.3); Total Protein,Serum 6.5 g/dl (6.3-8.2)
[2024-01-16 18:25] LABS: Uric Acid 3.8 mg/dl (2.5-6.2)
== END 2024-01-16 23:59 ==
LOC: LAB 14:54
PROVIDERS: PCP Family Medicine; Visit Provider Obstetrics & Gynecology
DX: O10.911 Unspecified pre-existing hypertension complicating pregnancy, first trimester (principal); O99.891 Other specified diseases and conditions complicating pregnancy; R25.2 Cramp and spasm; G47.33 Obstructive sleep apnea (adult) (pediatric); Z3A.08 8 weeks gestation of pregnancy
CPT/HCPCS: 36415; 80053; 83735; 84550

== ENCOUNTER 2024-01-19 11:27 | Outpatient (CLI) | payer BC, SELFPAY ==
[2024-01-21 12:35] LABS: Albumin, U 26.2 % (.); Alpha-2-Globulin, U 23.2 % (.); Beta Globulin, U 31.6 % (.); M-Spike, % Not Observed % (Not Observed); Prot,24hr calculated 154 mg/24 hr (30-150); Protein,Total,Urine 7.7 mg/dL (Not Estab.)
[2024-01-22 12:41] LABS: PDF: SCANNED IMAGE
== END 2024-01-19 23:59 ==
LOC: LAB.DROPOF 11:27
PROVIDERS: PCP Family Medicine; Visit Provider Obstetrics & Gynecology
DX: O10.911 Unspecified pre-existing hypertension complicating pregnancy, first trimester (principal); E66.01 Morbid (severe) obesity due to excess calories; Z68.41 Body mass index [BMI] 40.0-44.9, adult; G47.33 Obstructive sleep apnea (adult) (pediatric)
CPT/HCPCS: 84156; 84166

== ENCOUNTER 2024-02-06 16:37 | Emergency (ER) | payer BC, SELFPAY ==
[2024-02-06 16:40] VITALS: BP 109/69; PULSE 79; RESP 18; TEMP 36.7; O2SAT 100; BMI 43.0
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
[2024-02-06] MEDS: ACETAMINOPHEN 1,000MG/100ML VIAL 1000 MG IV (17:15)
[2024-02-06] MEDS: LACTATED RINGERS 1000ML 1,000 ML 999 ML IV (17:16)
[2024-02-06 17:18] LABS: Coronavirus 19, PCR Not Detected (NotDetected); Influenza A, PCR Not Detected (NotDetected); Influenza B, PCR Not Detected (NotDetected)
[2024-02-06 17:20] LABS: Microscopic, Urine URINE MICROSCOPIC (MICROSCOPIC)
[2024-02-06 17:25] LABS: Basophils % 0.6 % (0.1-2.0); Eosinophils # 0.1 K/mm3 (0.0-0.4); Eosinophils % 0.9 % (0.1-12.0); Hematocrit 37.9 % (37.0-47.0); Hemoglobin 12.7 g/dL (12.2-16.2); Lymphocytes # 1.5 K/mm3 (0.7-4.5); Lymphocytes % 22.2 % (10-50); Mean Corpuscular HGB Conc 33.5 g/dL (31.8-35.4); Mean Corpuscular Hemoglobin 31.2 pg (27.0-31.2); Mean Corpuscular Volume 93.1 fl (81-99); Monocytes # 0.3 K/mm3 (0.1-1.0); Monocytes % 4.4 % (1.7-9.3); Neutrophils # 4.7 K/mm3 (1.8-7.8); Neutrophils % 71.8 % (37.0-80.0); Platelet Count 170 K/mm3 (142-424); Red Blood Count 4.07 M/mm3 (4.20-5.40); Red Cell Distribution Width 14.3 % (11.5-17.5); White Blood Count 6.6 K/mm3 (4.8-10.8)
[2024-02-06 17:26] LABS: Appearance,Urine CLEAR (Clear); Bilirubin,Urine Negative (Negative); Blood, Urine Negative (Negative); Color,Urine YELLOW (Yellow); Glucose,Urine (UA) Negative (Negative); Ketones,Urine Negative (Negative); Leukocyte Esterase,Urine 1+ (Negative); Nitrate,Urine Negative (Negative); PH,Urine 6.5 (5.0-8.5); Protein,Urine Negative (Negative); Urobilinogen,Urine 0.2 EU/dl (0.2)
[2024-02-06 17:26] LABS: Chloride 106 mmol/L (98-107)
[2024-02-06 17:27] LABS: Potassium 3.8 mmoL/L (3.5-5.1); Sodium 134 mmol/L (136-145)
[2024-02-06 17:29] LABS: Alanine Aminotransferase 18 U/L (12-78); Alkaline Phosphatase 64 U/L (38-126); Anion Gap 6.8 mEq/L (5-15); Aspartate Amino Transferase 22 U/L (14-36); Bilirubin,Total 0.5 mg/dl (0.2-1.3); Blood Urea Nitrogen 6 mg/dl (7-17); Carbon Dioxide 25 mmol/L (22.0-30.0); Creatinine Clearance Estimated 161 mL/min (50-200); Estimated Glomerular Filt Rate 193 ml/min (>60); GFR (African American) 233 ML/MIN (>60)
[2024-02-06 17:30] LABS: Albumin Level 3.6 g/dl (3.5-5.0); Albumin/Globulin Ratio 1.1 (1.1-1.8); Calcium 8.8 mg/dl (8.4-10.2); Globulin 3.2 g/dL (1.3-3.2); Glucose 85 mg/dl (74-100); Total Protein,Serum 6.8 g/dl (6.3-8.2)
[2024-02-06 17:44] LABS: Squamous Epithelial Cell,Urine Occasional #/hpf (0-5); WBC,Urine Occasional #/hpf (0-3)
[2024-02-06 18:00] VITALS: BP 94/61; PULSE 62; O2SAT 100
[2024-02-06 18:41] VITALS: BP 104/62; PULSE 68; RESP 16; TEMP 36.7; O2SAT 100
--- NOTE | 2024-02-10 01:22 | PC.NURSE ---
final urine report received.
== END 2024-02-06 18:43 | disposition home or self-care (01) ==
PROVIDERS: Emergency Provider Emergency Medicine; PCP Family Medicine
DX: O26.891 Other specified pregnancy related conditions, first trimester (principal); B96.89 Other specified bacterial agents as the cause of diseases classified elsewhere; R10.32 Left lower quadrant pain; Z3A.11 11 weeks gestation of pregnancy
CPT/HCPCS: 80053; 81001; 85025; 87086; 87636; 96361; 96374; 99284; J0131

== ENCOUNTER 2024-02-22 00:47 | Emergency (ER) | payer BC, SELFPAY ==
[2024-02-22 00:48] VITALS: BP 115/71; PULSE 115; RESP 18; TEMP 37.1; O2SAT 98; BMI 29.7
[2024-02-22 01:19] LABS: Basophils % 0.2 % (0.1-2.0); Hematocrit 34.9 % (37.0-47.0); Hemoglobin 11.8 g/dL (12.2-16.2); Lymphocytes # 0.2 K/mm3 (0.7-4.5); Lymphocytes % 11.4 % (10-50); Mean Corpuscular HGB Conc 33.8 g/dL (31.8-35.4); Mean Corpuscular Hemoglobin 30.7 pg (27.0-31.2); Mean Platelet Volume 8.8 fl (7.4-10.4); Monocytes # 0.2 K/mm3 (0.1-1.0); Monocytes % 8.2 % (1.7-9.3); Neutrophils # 1.6 K/mm3 (1.8-7.8); Neutrophils % 79.3 % (37.0-80.0); Platelet Count 141 K/mm3 (142-424); Red Blood Count 3.84 M/mm3 (4.20-5.40); Red Cell Distribution Width 13.9 % (11.5-17.5)
[2024-02-22 01:25] LABS: Alanine Aminotransferase 24 U/L (12-78); Albumin Level 3.5 g/dl (3.5-5.0); Albumin/Globulin Ratio 1.2 (1.1-1.8); Alkaline Phosphatase 60 U/L (38-126); Anion Gap 8.5 mEq/L (5-15); Aspartate Amino Transferase 31 U/L (14-36); Bilirubin,Total 0.8 mg/dl (0.2-1.3); Blood Urea Nitrogen 6 mg/dl (7-17); Calcium 9.3 mg/dl (8.4-10.2); Carbon Dioxide 23 mmol/L (22.0-30.0); Chloride 105 mmol/L (98-107); Creatinine Clearance Estimated 232 mL/min (50-200); Estimated Glomerular Filt Rate 149 ml/min (>60); GFR (African American) 180 ML/MIN (>60); Glucose 98 mg/dl (74-100); Magnesium 1.7 mg/dl (1.6-2.3); Potassium 3.5 mmoL/L (3.5-5.1); Sodium 133 mmol/L (136-145); Total Protein,Serum 6.5 g/dl (6.3-8.2)
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
[2024-02-22 01:28] LABS: Microscopic, Urine URINE MICROSCOPIC (MICROSCOPIC)
[2024-02-22 01:29] LABS: Appearance,Urine SL CLOUDY (Clear); Bilirubin,Urine Negative (Negative); Blood, Urine Negative (Negative); Color,Urine YELLOW (Yellow); Glucose,Urine (UA) Negative (Negative); Ketones,Urine Negative (Negative); Leukocyte Esterase,Urine TRACE (Negative); Nitrate,Urine Negative (Negative); PH,Urine 7.5 (5.0-8.5); Protein,Urine Negative (Negative)
[2024-02-22 01:30] VITALS: BP 122/94; PULSE 101; RESP 20; O2SAT 97
[2024-02-22] MEDS: LACTATED RINGERS 1000ML 1,000 ML 999 ML IV (01:30)
--- NOTE | 2024-02-22 01:30 | PC.NURSE ---
I rounded on the pt and took her a blanket. no new complaints at this time, no needs voiced. call lo in reach.
[2024-02-22 01:42] LABS: Amorphous Sediment,Urine 1+ /lpf; Bacteria,Urine 1+ /lpf; Squamous Epithelial Cell,Urine Occasional #/hpf (0-5); WBC,Urine Occasional #/hpf (0-3)
[2024-02-22] MEDS: cephALEXin 500MG CAPSULE 500 MG PO (01:59)
[2024-02-22] MEDS: METOCLOPRAMIDE HCL 10MG/2ML VIAL 10 MG IVP (01:59)
[2024-02-22] MEDS: ACETAMINOPHEN 1,000MG/100ML VIAL 1000 MG IV (01:59)
[2024-02-22 02:00] VITALS: BP 110/58; PULSE 89; RESP 18; O2SAT 98
[2024-02-22 02:53] VITALS: BP 98/50; PULSE 87; RESP 16; TEMP 36.6
== END 2024-02-22 02:58 | disposition home or self-care (01) ==
PROVIDERS: Emergency Provider Emergency Medicine; PCP Family Medicine
DX: O26.892 Other specified pregnancy related conditions, second trimester (principal); E86.0 Dehydration; D72.819 Decreased white blood cell count, unspecified; O99.891 Other specified diseases and conditions complicating pregnancy; R51.9 Headache, unspecified; Z3A.14 14 weeks gestation of pregnancy; E87.1 Hypo-osmolality and hyponatremia
CPT/HCPCS: 80053; 81001; 83735; 85025; 96361; 96374; 96375; 99284; J0131

== ENCOUNTER 2024-02-26 16:16 | Outpatient (CLI) | payer BC, SELFPAY | END 2024-02-26 23:59 | disposition home or self-care (01) | LOC: LAB 16:17 | PROVIDERS: PCP Family Medicine; Visit Provider Obstetrics & Gynecology | DX: R19.7 Diarrhea, unspecified (principal) | CPT/HCPCS: 87045 ==

== ENCOUNTER 2024-02-27 10:34 | Outpatient (CLI) | payer BC, SELFPAY ==
[2024-02-27 10:41] VITALS: BMI 34.1
[2024-02-27 11:00] VITALS: BP 133/79; PULSE 85; RESP 18; TEMP 36.8; O2SAT 97; BMI 34.2
[2024-02-27] MEDS: PANTOPRAZOLE 40MG VIAL 40 MG IV (11:06)
[2024-02-27] MEDS: SODIUM CHLORIDE 0.9% 10ML VIAL 10 ML IV (11:06)
[2024-02-27] MEDS: ONDANSETRON 4MG/2ML VIAL 4 MG IV (11:06)
[2024-02-27] MEDS: 0.9 % SODIUM CHLORIDE 1000ML 1,000 ML 999 ML IV (11:06)
[2024-02-27 11:18] LABS: Microscopic, Urine URINE MICROSCOPIC (MICROSCOPIC)
[2024-02-27 11:20] LABS: Appearance,Urine CLOUDY (Clear); Blood, Urine Negative (Negative); Color,Urine DARK YELLOW (Yellow); Glucose,Urine (UA) Negative (Negative); Ketones,Urine Negative (Negative); Leukocyte Esterase,Urine 2+ (Negative); Nitrate,Urine Negative (Negative); PH,Urine 6.5 (5.0-8.5); Protein,Urine 1+ (Negative); Specific Gravity, Urine 1.025 (1.005-1.030)
[2024-02-27 11:28] LABS: Basophils % 0.6 % (0.1-2.0); Eosinophils # 0.1 K/mm3 (0.0-0.4); Eosinophils % 1.6 % (0.1-12.0); Hematocrit 33.9 % (37.0-47.0); Hemoglobin 11.9 g/dL (12.2-16.2); Lymphocytes # 0.8 K/mm3 (0.7-4.5); Lymphocytes % 24.1 % (10-50); Mean Corpuscular Hemoglobin 31.1 pg (27.0-31.2); Mean Corpuscular Volume 88.7 fl (81-99); Mean Platelet Volume 9.7 fl (7.4-10.4); Monocytes # 0.2 K/mm3 (0.1-1.0); Monocytes % 4.6 % (1.7-9.3); Neutrophils # 2.3 K/mm3 (1.8-7.8); Neutrophils % 69.1 % (37.0-80.0); Platelet Count 148 K/mm3 (142-424); Red Blood Count 3.82 M/mm3 (4.20-5.40); Red Cell Distribution Width 13.8 % (11.5-17.5); White Blood Count 3.3 K/mm3 (4.8-10.8)
[2024-02-27 11:32] LABS: Barbiturates Screen,Urine Negative ng/ml (<200)
[2024-02-27 11:33] LABS: Amphetamine/Metha Screen,Urine Negative ng/ml (<1000); Benzodiazepines Screen,Urine Negative ng/ml (<200)
[2024-02-27 11:34] LABS: Methadone Screen,Urine Negative ng/ml (<300)
[2024-02-27 11:35] LABS: Cannabinoid Screen,Urine Negative ng/ml (<50); Cocaine Screen,Urine Negative ng/ml (<300)
[2024-02-27 11:36] LABS: Opiate Screen,Urine Negative ng/ml (<300); Phencyclidine Screen,Urine Negative ng/ml (<25)
[2024-02-27 11:42] LABS: Bilirubin,Urine 2+ (Negative)
[2024-02-27 11:51] LABS: Bacteria,Urine 2+ /lpf; RBC,Urine Occasional #/hpf (0-3)
[2024-02-27 12:27] LABS: Chloride 108 mmol/L (98-107); Potassium 3.8 mmoL/L (3.5-5.1); Sodium 139 mmol/L (136-145)
[2024-02-27 12:29] LABS: Amylase 55 U/L (30-110)
[2024-02-27 12:30] LABS: Alanine Aminotransferase 32 U/L (12-78); Albumin Level 3.5 g/dl (3.5-5.0); Albumin/Globulin Ratio 1.3 (1.1-1.8); Alkaline Phosphatase 74 U/L (38-126); Anion Gap 9.8 mEq/L (5-15); Aspartate Amino Transferase 27 U/L (14-36); Bilirubin,Total 0.6 mg/dl (0.2-1.3); Blood Urea Nitrogen 5 mg/dl (7-17); Carbon Dioxide 25 mmol/L (22.0-30.0); Creatinine Clearance Estimated 333 mL/min (50-200); Estimated Glomerular Filt Rate 193 ml/min (>60); GFR (African American) 233 ML/MIN (>60); Globulin 2.8 g/dL (1.3-3.2); Glucose 83 mg/dl (74-100); Lipase 45 U/L (23-300); Total Protein,Serum 6.3 g/dl (6.3-8.2)
== END 2024-02-27 13:18 | disposition home or self-care (01) ==
LOC: OBOUT 10:34 → OB 10:35
PROVIDERS: Obstetrics & Gynecology; PCP Family Medicine; Visit Provider Obstetrics & Gynecology
DX: O26.892 Other specified pregnancy related conditions, second trimester (principal); Z3A.14 14 weeks gestation of pregnancy
CPT/HCPCS: 80053; 80307; 81001; 82150; 83690; 85025; 87086; G0463; J2405

== ENCOUNTER 2024-03-13 11:03 | Emergency (ER) | payer BC, SELFPAY ==
[2024-03-13 11:15] VITALS: BP 105/70; PULSE 79; RESP 18; TEMP 36.8; O2SAT 98; BMI 42.0
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
[2024-03-13 12:37] VITALS: BP 105/70; PULSE 79; RESP 18; TEMP 36.8; O2SAT 98
== END 2024-03-13 12:37 | disposition home or self-care (01) ==
PROVIDERS: Emergency Provider Nurse Practitioner Family; PCP Family Medicine
DX: O26.892 Other specified pregnancy related conditions, second trimester (principal); S50.861A Insect bite (nonvenomous) of right forearm, initial encounter; Z3A.16 16 weeks gestation of pregnancy; W60.XXXA Contact with nonvenomous plant thorns and spines and sharp leaves, initial encounter
CPT/HCPCS: 99212; 99214; G0463

== ENCOUNTER 2024-03-23 13:37 | Outpatient (CLI) | payer BC, SELFPAY ==
[2024-03-26 15:11] LABS: Parvovirus B19, IgG 5.5 index (0.0-0.8); Parvovirus B19, IgM 5.6 index (0.0-0.8)
== END 2024-03-23 23:59 | disposition home or self-care (01) ==
LOC: LAB 13:38
PROVIDERS: PCP Family Medicine; Visit Provider Obstetrics & Gynecology
DX: Z20.828 Contact with and (suspected) exposure to other viral communicable diseases (principal); O98.519 Other viral diseases complicating pregnancy, unspecified trimester; B34.3 Parvovirus infection, unspecified; Z3A.01 Less than 8 weeks gestation of pregnancy
CPT/HCPCS: 36415; 86747

== ENCOUNTER 2024-03-27 10:09 | Outpatient (CLI) | payer BC, SELFPAY ==
[2024-03-27 11:54] LABS: Chloride 107 mmol/L (98-107); Sodium 136 mmol/L (136-145)
[2024-03-27 11:55] LABS: Potassium 4.1 mmoL/L (3.5-5.1)
[2024-03-27 11:57] LABS: Alanine Aminotransferase 18 U/L (12-78); Albumin Level 3.5 g/dl (3.5-5.0); Albumin/Globulin Ratio 1.2 (1.1-1.8); Alkaline Phosphatase 62 U/L (38-126); Anion Gap 9.1 mEq/L (5-15); Aspartate Amino Transferase 24 U/L (14-36); Bilirubin,Total 0.4 mg/dl (0.2-1.3); Blood Urea Nitrogen 4 mg/dl (7-17); Carbon Dioxide 24 mmol/L (22.0-30.0); Estimated Glomerular Filt Rate 149 ml/min (>60); GFR (African American) 180 ML/MIN (>60); Globulin 2.9 g/dL (1.3-3.2); Total Protein,Serum 6.4 g/dl (6.3-8.2)
[2024-03-27 11:58] LABS: Calcium 9.4 mg/dl (8.4-10.2); Glucose 77 mg/dl (74-100)
[2024-04-07 08:54] LABS: Bile Acids 3.4
== END 2024-03-27 23:59 | disposition home or self-care (01) ==
LOC: LAB 10:10
PROVIDERS: PCP Family Medicine; Visit Provider Obstetrics & Gynecology
DX: O26.612 Liver and biliary tract disorders in pregnancy, second trimester (principal); K83.1 Obstruction of bile duct; Z3A.18 18 weeks gestation of pregnancy
CPT/HCPCS: 36415; 80053; 82239

== ENCOUNTER 2024-03-31 08:00 | Outpatient (RCR) | payer BC, SELFPAY ==
--- NOTE | 2024-03-31 10:03 | HMH.PTOPEV ---
PT Outpatient Evaluation Rehab PT Outpatient Evaluation Start: 03/31/24 08:06 Freq: Status: Active Protocol: Document 03/31/24 08:06 HANY (Rec: 03/31/24 10:03 HANY [id number]) E-signed By Jessica Stewart, PT Outpatient Therapy Subjective History Subjective History Pt is a 28 y/o female who reports to PT for low back pain in . Pt reports she is 19 weeks with complications including fifth disease and a small subchorionic hemorrhage. Pt reports chronic back pain with worsening 3 years ago after having twins and getting an epidural. Pt reports she thinks she had diastasis recti after having her twins. Pt reports current symptoms of central low back pain R>L with a pinching sensation in her posterior hips that then radiates down her legs to her knee, denies more distal symptoms to her ankle/feet. Pt reports this usually happens unilateraly; however, when she sits both legs often go numb at the same time briefly. Pt denies incontinence or b/b dysfunction. Pt reports pain is aggravated by transfers like sit to stands, lifting her kids, household care, prolonged standing/sitting/ walking, and bending forward. Pt reports pain improves with laying on her stomach, taking a hot shower and resting. Pt reports she returns to her OBGYN tomorrow for her next follow-up visit. 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: Recent low blood pressure per pt New diagnosis of cancer in past 12 No months? Chief Complaint Pain,Stiff Symptom Type Ache,Sharp,Dull,Shooting Symptoms Relieved By Rest/Positioning,Heat Symptoms Aggravated By Standing,Bending/Stooping, Physical Activity,Walking, Lifting Prior Functional Limitations Housework Current Functional Limitations Lifting,Housework,Sleeping, Standing,Sitting,Squatting, Recreation Activity,Walking, Bending/Stooping Symptom Description Constant but Variable Level of pain today (0-10) 3 Pain scale - at its best (0-10) 3 Pain scale - at its worst (0-10) 7 Lumbopelvic Eval Posture Lumbar Spine Posture Standing Position Increased Lordosis Palapation tenderness bilateral lumbar spinal tenderness Yes: L2-5, S1 paraspinal tenderness Yes: R>L buttock tenderness Yes: piriformis, glute med/min B Lumbar/Sacral Palpation Findings Tenderness Lumbar/Sacral Palpation Overall Comment 2-3/4 TTP Accessory Movement L-spine Vertebrae Accessory Movements Central P/A [place] that Elicit Symptoms L2 bilateral L3 bilateral L4 bilateral L5 bilateral S1 bilateral Range of Motion Lumbar Spine Active Flexion Range of 35 Motion (degrees) Lumbar Spine Active Extension Range of 20 Motion (degrees) Left Lumbar Spine Lateral Flexion Active 10 Range of Motion (degrees) Right Lumbar Spine Lateral Flexion 10 Active Range of Motion (degrees) Manual Muscle Test Bilateral Knee Extension Strength Grade 5 Normal Knee Flexion Strength Grade 5 Normal Hip Flexion Strength Grade 4 Good Hip Abduction Strength Grade 4- Good- Hip Adduction Strength Grade 4- Good- Hip Extension Strength Grade 4- Good- Ankle Dorsiflexion Strength Grade 5 Normal DTR Rt Patellar 2+ Lt Patellar 2+ Altered Sensation Bilateral Comment equal and intact to light touch sensation bilaterally Special Tests Hip Eduardo (RIYA) Test Positive Left,Positive Right Unilateral Straight Leg Raise (Lasegue) Negative Left,Positive Right Test Oswestry Index Section 1 Pain Intensity The pain comes and goes and is moderate Section 2 Personal Care (Washing,Dresing) my way of washing or dressing even though it causes some pain Section 3 Lifting I can lift heavy weights, but it gives me extra pain Section 4 Walking I cannot walk more than one mile wihtout increasing pain Section 5 Sitting Pain prevents me from sitting for more than one hour Section 6 Standing I cannot stand more than 1 hour without increasing pain Section 7 Sleeping Because of my pain, my normal night's sleep is less than 4 hours Section 8 Social Life My social life is normal but increases the degree of pain Section 9 Traveling I get some pain when traveling , but none of my usual forms of travel m Section 10 Changing Degreee of Pain My pain is neither getting better or worse Score and Risk Level Oswestry Sc 18 Oswestry Risk Level Moderate Disability Outpatient Therapy Assessment Impairments Problems/Impairmments Palpation Tenderness,Impaired Range of Motion,Impaired Strength,Impaired Transfers, Impaired Walking,Impaired Standing,Impaired Sitting, Impaired Lifting,Impaired Household Care,Impaired Stair Climbing,Impaired Squatting, Impaired Bending,Subjective C/ O Pain,Impaired Self Care/Self Management Prognosis Rehab Potential Good Clinical Impression Consistent with Diagnosis Yes Short Term Goals Number of Weeks 3 Improve Transfers Yes: perform sit to stand with pain 6/10 or less Decrease Subjective C/O Pain Yes: Improve pain at worst to 5/10 to improve overall QOL Improve Self Care/Self Management Yes Patient to be Ind w/ HEP Yes Autocutter Goals Number of Weeks 6 Decreased Palpation Tenderness Yes: 1/4 TTP of lumbar PS, SP, and musculature Increase Range of Motion Yes: Improve lumbar AROM flexion to at least 50-60, LF to 15-20 Increase Strength Yes: Improve LE MMT to 4+/5 grossly to assist with function Increase Ability to Walk Yes: >15' with pain 4/10 or less to assist with iADLs Improve Oswestry Score Yes: Improve score to 13 or less to improve overall QOL Decrease Subjective C/O Pain Yes: Improve pain at worst to 3/10 to improve overall QOL Outpatient Therapy Plan of Care Treatment Plan May Include Therapeutic Exercise Including Home Yes Exercise Program Manual Therapy Techniques Yes Neuromuscular Re-education Yes Therapeutic Activities to Return to Yes Previous Functional/Work Level ADL/Self Care Education Yes Thermal Modalities Yes Massage Yes Eval/Re-Eval Yes Aquatic Therapy Yes Frequency Times per week 1-2 Duration Number of Weeks 4-6 Addendums This patient is a candidate for social No or vocational rehab? Patient/Guardian verbally acknowledges Yes understanding of treatment program and consents to further treatment? Patient/Guardian verbally acknowledges Yes understanding of diagnosis, prognosis and goals for treatment? Eval Complexity PT Charges 99548 - Low Complexity Shoulder/Elbow Eval Shoulder Objective Measurements Elbow Objective Measurements PHYSICIAN CERTIFICATION: I certify the specified therapy services for Jillian Cisneros are required, authorized, and reviewed every 30 days.
== END 2024-03-31 09:10 | disposition home or self-care (01) ==
LOC: PT 08:00
PROVIDERS: Visit Provider Obstetrics & Gynecology
DX: O26.892 Other specified pregnancy related conditions, second trimester (principal); Z3A.19 19 weeks gestation of pregnancy; M54.42 Lumbago with sciatica, left side
CPT/HCPCS: 97163

== ENCOUNTER 2024-04-16 19:44 | Outpatient (CLI) | payer BC, SELFPAY ==
[2024-04-16 19:54] VITALS: BMI 42.5
[2024-04-16 20:01] VITALS: BP 108/66; PULSE 87; RESP 16; TEMP 37.2; O2SAT 99; BMI 42.5
[2024-04-16 20:04] LABS: Microscopic, Urine URINE MICROSCOPIC (MICROSCOPIC)
[2024-04-16 20:08] LABS: Appearance,Urine CLEAR (Clear); Bilirubin,Urine Negative (Negative); Blood, Urine Negative (Negative); Color,Urine YELLOW (Yellow); Glucose,Urine (UA) Negative (Negative); Ketones,Urine Negative (Negative); Leukocyte Esterase,Urine 1+ (Negative); Nitrate,Urine Negative (Negative); PH,Urine 6.5 (5.0-8.5); Protein,Urine Negative (Negative); Specific Gravity, Urine <= 1.005 (1.005-1.030); Urobilinogen,Urine 0.2 EU/dl (0.2)
[2024-04-16 20:21] LABS: Amphetamine/Metha Screen,Urine Negative ng/ml (<1000)
[2024-04-16 20:22] LABS: Bacteria,Urine Trace /lpf; Barbiturates Screen,Urine Negative ng/ml (<200); Benzodiazepines Screen,Urine Negative ng/ml (<200); Squamous Epithelial Cell,Urine Occasional #/hpf (0-5); White Blood Cell Casts,Urine Occasional #/lpf (0)
[2024-04-16 20:23] LABS: Cocaine Screen,Urine Negative ng/ml (<300)
[2024-04-16 20:24] LABS: Methadone Screen,Urine Negative ng/ml (<300); Opiate Screen,Urine Negative ng/ml (<300)
[2024-04-16 20:25] LABS: Phencyclidine Screen,Urine Negative ng/ml (<25)
[2024-04-16 21:31] LABS: Cannabinoid Screen,Urine Negative ng/ml (<50)
== END 2024-04-16 21:07 | disposition home or self-care (01) ==
LOC: OBOUT 19:46 → OB 19:48
PROVIDERS: PCP Family Medicine; Visit Provider Obstetrics & Gynecology
DX: O36.8120 Decreased fetal movements, second trimester, not applicable or unspecified (principal); Z3A.21 21 weeks gestation of pregnancy
CPT/HCPCS: 59025; 80307; 81001; 87086; G0463

== ENCOUNTER 2024-04-19 12:50 | Outpatient (CLI) | payer BC, SELFPAY ==
--- NOTE | 2024-04-19 12:59 | US_ITS ---
PROCEDURE: US OB FOLLOW UP CLINICAL INDICATION: Parvovirus Exposure, Chronic Hypertension COMPARISON: US US OB <= 14 WEEKS FETUS from 01/15/2024 FINDINGS: Transabdominal sonographic images of the pelvis were obtained. The following parameters are obtained: From her established due date she is 22weeks 0 days Viable fetus in the cephalic presentation with a posterior placenta grade 1. The cervix measures 7.2 cm. heart rate: 152bpm bpm. BPD: 21weeks 0 days, 13 percentile HC: 21weeks 3days, 14 percentile AC: 21weeks 5days, 32 percentile FL: 20weeks 5days, 6 percentile HC/AC: 1.14 FL/BPD: 0.68 FL/AC: 0.2 Growth percentile: 12 Amniotic fluid index: Appears normal, MVP 5.3 cm. No obvious anomalies evident. profile seen, stomach, bladder, kidneys, three-vessel cord, four chamber heart appear normal. IMPRESSION: 1. Viable fetus in the cephalic presentation with a posterior placenta grade 1. 2. The fluid is within normal limits with an MVP of 5.3 cm. 3. Limited anatomical scan appears normal. 4. There has been good growth with the fetus currently on 12th percentile. Dictated by: Itz Lamb MD 04/19/2024 18:13 Itz Lamb MD in [place] 04/19/2024 18:13
== END 2024-04-19 23:59 | disposition home or self-care (01) ==
LOC: RAD 12:51
PROVIDERS: PCP Family Medicine; Visit Provider Obstetrics & Gynecology
DX: O98.512 Other viral diseases complicating pregnancy, second trimester (principal); B34.3 Parvovirus infection, unspecified; Z20.828 Contact with and (suspected) exposure to other viral communicable diseases; O10.912 Unspecified pre-existing hypertension complicating pregnancy, second trimester; O26.612 Liver and biliary tract disorders in pregnancy, second trimester; K83.1 Obstruction of bile duct; Z3A.22 22 weeks gestation of pregnancy
CPT/HCPCS: 76816

== ENCOUNTER 2024-04-22 09:31 | Outpatient (CLI) | payer BC, SELFPAY ==
--- NOTE | 2024-04-22 09:31 | US_ITS ---
PROCEDURE: US OB FOLLOW UP CLINICAL INDICATION: Parvovirus Exposure, Chronic Hypertension COMPARISON: US US OB <= 14 WEEKS FETUS from 01/15/2024 US US OB FOLLOW UP from 04/19/2024 FINDINGS: Transabdominal sonographic images of the pelvis were obtained. The following parameters are obtained: From her established due date she is 22weeks 3days Viable fetus in the breech presentation with a posterior placenta grade 1. The cervix measures 4.46 cm. heart rate: 160bpm bpm. BPD: 22weeks 0 days, 28 percentile HC: 22weeks 0 days, 21 percentile AC: 22weeks 3days, 41 percentile FL: 20weeks 3days, <2 percentile HC/AC: 1.13 FL/BPD: 0.63 FL/AC: 0.19 Growth percentile: 11 Amniotic fluid index: Normal, MVP 4.78 cm. No obvious anomalies evident. profile seen, nasion, stomach, bladder, kidneys, three-vessel cord, four chamber heart appear normal. IMPRESSION: 1. Viable fetus in the breech presentation with a posterior placenta grade 1. 2. The fluid is within normal limits with an MVP of 4.78 cm. 3. There has been good interval growth with the fetus currently 11th percentile. Femur length is less than 2nd percentile. Femur length was previously measured at 6th percentile 3 days ago. 4. The fetus is active. 5. Limited anatomical scan appears normal. Dictated by: Itz Lamb MD 04/22/2024 16:42 Itz Lamb MD in [place] 04/22/2024 16:42
== END 2024-04-22 23:59 | disposition home or self-care (01) ==
LOC: RAD 09:31
PROVIDERS: PCP Family Medicine; Visit Provider Obstetrics & Gynecology
DX: O98.512 Other viral diseases complicating pregnancy, second trimester (principal); B34.3 Parvovirus infection, unspecified; O10.912 Unspecified pre-existing hypertension complicating pregnancy, second trimester; Z3A.22 22 weeks gestation of pregnancy
CPT/HCPCS: 76816

== ENCOUNTER 2024-05-02 18:05 | Outpatient (CLI) | payer BC, SELFPAY ==
[2024-05-02 18:29] VITALS: BP 102/69; PULSE 83; RESP 18; TEMP 37.4; O2SAT 97; BMI 43.0
[2024-05-02 18:56] LABS: Microscopic, Urine URINE MICROSCOPIC (MICROSCOPIC)
[2024-05-02 19:02] LABS: Bilirubin,Urine Negative (Negative); Blood, Urine Negative (Negative); Color,Urine YELLOW (Yellow); Glucose,Urine (UA) Negative (Negative); Ketones,Urine Negative (Negative); Leukocyte Esterase,Urine TRACE (Negative); Nitrate,Urine Negative (Negative); Protein,Urine Negative (Negative); Specific Gravity, Urine >= 1.030 (1.005-1.030)
[2024-05-02 19:10] LABS: Appearance,Urine Clear (Clear)
[2024-05-02 19:13] LABS: Amphetamine/Metha Screen,Urine Negative ng/ml (<1000); Barbiturates Screen,Urine Negative ng/ml (<200)
[2024-05-02 19:14] LABS: Benzodiazepines Screen,Urine Negative ng/ml (<200); Cannabinoid Screen,Urine Negative ng/ml (<50)
[2024-05-02 19:15] LABS: Cocaine Screen,Urine Negative ng/ml (<300)
[2024-05-02 19:16] LABS: Methadone Screen,Urine Negative ng/ml (<300); Opiate Screen,Urine Negative ng/ml (<300)
[2024-05-02 19:17] LABS: Calcium Oxalate Crystals,Urine Trace /lpf; Phencyclidine Screen,Urine Negative ng/ml (<25)
[2024-05-02 19:18] LABS: Bacteria,Urine 1+ /lpf
== END 2024-05-02 19:33 | disposition home or self-care (01) ==
LOC: OBOUT 18:07 → OB 18:08
PROVIDERS: PCP Family Medicine; Visit Provider Obstetrics & Gynecology
DX: O36.8120 Decreased fetal movements, second trimester, not applicable or unspecified (principal); Z3A.23 23 weeks gestation of pregnancy
CPT/HCPCS: 80307; 81001; G0463

== ENCOUNTER 2024-05-06 09:15 | Outpatient (CLI) | payer BC, SELFPAY ==
--- NOTE | 2024-05-06 09:15 | US_ITS ---
PROCEDURE: US OB FOLLOW UP CLINICAL INDICATION: Parvovirus Exposure, Chronic Hypertension COMPARISON: US US OB <= 14 WEEKS FETUS from 01/06/2024 US US OB FOLLOW UP from 04/19/2024 US US OB FOLLOW UP from 04/22/2024 FINDINGS: Transabdominal sonographic images of the pelvis were obtained. The following parameters are obtained: From her established due date she is 24weeks 3days Viable fetus in the cephalic presentation with a posterior placenta grade 1. The cervix measures 4.4 cm. heart rate: 150bpm bpm. BPD: 23weeks 2days, 8 percentile HC: 23weeks 4days, 7 percentile AC: 25weeks 4days, 74 percentile FL: 22weeks 5days, 3 percentile HC/AC: 1.03 FL/BPD: 0.7 FL/AC: 0.19 Growth percentile: Amniotic fluid: MVP 5.9 cm. There is significant intra-abdominal fluid/ascites that has developed over the last 2 weeks. On a prior ultrasound exam April 22, 2024, there was no intra-abdominal fluid seen. profile seen, stomach, bladder, three-vessel cord, four chamber heart appear normal. IMPRESSION: 1. Viable fetus in the cephalic presentation with a posterior placenta grade 1. 2. The fluid is within normal limits with an MVP of 5.9 cm. 3. There is significant intra-abdominal fluid/ascites that has developed over the last 2 weeks. 4. There has been good interval growth since her last exam but the femur is short and remains at the 3rd percentile. 5. Suggest an urgent MFM consult. 6. Dr. Fournier was notified. Dictated by: Itz Lamb MD 05/06/2024 12:10 Itz Lamb MD in [place] 05/06/2024 12:10
== END 2024-05-06 23:59 | disposition home or self-care (01) ==
LOC: RAD 09:15
PROVIDERS: PCP Family Medicine; Visit Provider Obstetrics & Gynecology
DX: O98.512 Other viral diseases complicating pregnancy, second trimester (principal); B34.3 Parvovirus infection, unspecified; O26.612 Liver and biliary tract disorders in pregnancy, second trimester; K83.1 Obstruction of bile duct; Z20.828 Contact with and (suspected) exposure to other viral communicable diseases; O10.912 Unspecified pre-existing hypertension complicating pregnancy, second trimester; Z3A.24 24 weeks gestation of pregnancy
CPT/HCPCS: 76816

== ENCOUNTER 2024-05-06 11:38 | Observation (INO) | payer BC, SELFPAY ==
[2024-05-06 11:50] VITALS: BP 100/61; PULSE 88; RESP 19; TEMP 36.8; O2SAT 100; BMI 42.7
[2024-05-06] MEDS: BETAMETHASONE ACET/PHOS 6MG/ML 5ML MDV 12 MG IM (11:59)
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
== END 2024-05-06 12:59 | disposition short-term general hospital (02) ==
LOC: OB 12:44
PROVIDERS: Admitting Provider Obstetrics & Gynecology; PCP Family Medicine; Visit Provider Obstetrics & Gynecology
DX: O26.892 Other specified pregnancy related conditions, second trimester (principal); O30.002 Twin pregnancy, unspecified number of placenta and unspecified number of amniotic sacs, second trimester; Z3A.24 24 weeks gestation of pregnancy; O10.92 Unspecified pre-existing hypertension complicating childbirth; R18.8 Other ascites; G58.8 Other specified mononeuropathies; O99.212 Obesity complicating pregnancy, second trimester; Z20.828 Contact with and (suspected) exposure to other viral communicable diseases; O99.112 Other diseases of the blood and blood-forming organs and certain disorders involving the immune mechanism complicating pregnancy, second trimester; F33.41 Major depressive disorder, recurrent, in partial remission; O99.344 Other mental disorders complicating childbirth
CPT/HCPCS: G0378; J0702

== ENCOUNTER 2024-05-19 09:29 | Outpatient (CLI) | payer BC, SELFPAY ==
--- NOTE | 2024-05-19 09:29 | US_ITS ---
PROCEDURE: US OB FOLLOW UP CLINICAL INDICATION: Parvovirus Exposure, Chronic Hypertension COMPARISON: US US OB FOLLOW UP from 04/19/2024 US US OB FOLLOW UP from 04/22/2024 US OB FOLLOW UP from 05/06/2024 FINDINGS: Transabdominal sonographic images of the pelvis were obtained. The following parameters are obtained: From her established due date she is 26weeks 2days Viable fetus in the breech presentation with a posterior placenta grade 1. The cervix measures 3.17 cm. heart rate: 134bpm bpm. BPD: 26weeks 1day, 31 percentile HC: 26weeks 0 days, 15 percentile AC: 26weeks 2days, 40 percentile FL: 25weeks 5days, 18 percentile HC/AC: 1.09 FL/BPD: 0.73 FL/AC: 0.22 Growth percentile: 26 Amniotic fluid: Appears normal No obvious anomalies evident. Stomach, bladder, kidneys, three-vessel cord, four chamber heart appear normal. The previously described ascites is not present today. There is a small scrotal hydrocele. IMPRESSION: 1. Viable fetus in the breech presentation with a posterior placenta grade 1. 2. The fluid is within normal limits. 3. The previously described ascites has resolved today. 4. There is a small scrotal hydrocele. 5. The rest of the anatomical scan appears normal. 6. There has been good interval growth with the fetus currently 26 percentile. Dictated by: Itz Lamb MD 05/19/2024 10:38 Itz Lamb MD in [place] 05/19/2024 10:38
== END 2024-05-19 23:59 | disposition home or self-care (01) ==
LOC: RAD 09:29
PROVIDERS: PCP Internal Medicine; Visit Provider Obstetrics & Gynecology
DX: O98.512 Other viral diseases complicating pregnancy, second trimester (principal); B34.3 Parvovirus infection, unspecified; Z20.828 Contact with and (suspected) exposure to other viral communicable diseases; O26.612 Liver and biliary tract disorders in pregnancy, second trimester; K83.1 Obstruction of bile duct; O10.912 Unspecified pre-existing hypertension complicating pregnancy, second trimester; Z3A.26 26 weeks gestation of pregnancy
CPT/HCPCS: 76816

== ENCOUNTER 2024-05-19 12:25 | Outpatient (CLI) | payer BC, SELFPAY ==
[2024-05-21 12:38] LABS: Rapid Plasma Reagin Ab Titer Non Reactive titer (NonRea<1:1)
== END 2024-05-19 23:59 | disposition home or self-care (01) ==
LOC: LAB 12:26
PROVIDERS: PCP Family Medicine; Visit Provider Obstetrics & Gynecology
DX: Z34.90 Encounter for supervision of normal pregnancy, unspecified, unspecified trimester (principal)
CPT/HCPCS: 86593

== ENCOUNTER 2024-05-24 14:29 | Outpatient (CLI) | payer BC, SELFPAY ==
--- NOTE | 2024-05-24 14:29 | US_ITS ---
PROCEDURE: US OB FOLLOW UP CLINICAL INDICATION: Monitoring for Parvovirus Exposure COMPARISON: US US OB <= 14 WEEKS FETUS from 01/15/2024 US US OB FOLLOW UP from 04/19/2024 US OB FOLLOW UP from 04/22/2024 US OB FOLLOW UP from 05/06/2024 US OB FOLLOW UP from 05/19/2024 FINDINGS: Transabdominal sonographic images of the pelvis were obtained. The following parameters are obtained: From her established due date she is 27weeks Viable fetus in the cephalic presentation with a posterior placenta grade 1. The cervix measures 4.6 cm. heart rate: 146bpm bpm. BPD: 26weeks 6days, 33 percentile HC: 27weeks 3days, 35 percentile AC: 27weeks 3days, 53 percentile FL: 26weeks 2days, 14 percentile HC/AC: 1.1 FL/BPD: 0.72 FL/AC: 0.21 Growth percentile: 34 Amniotic fluid: MVP 4.31 cm No obvious anomalies evident. profile seen, stomach, bladder, kidneys, three-vessel cord, four chamber heart appear normal. A small scrotal hydrocele is still present. IMPRESSION: 1. Viable fetus in the cephalic presentation with posterior placenta grade 1. 2. The fluid is within normal limits with an MVP 4.31 cm. 3. There has been good interval growth with the fetus currently 34th percentile. 4. There continues to be a small scrotal hydrocele. There has been no recurrence of the ascites seen on a previous exam. 5. Limited anatomy appears normal. Dictated by: Itz Lamb MD 05/24/2024 16:58 Itz Lamb MD in OV 05/24/2024 16:58
== END 2024-05-24 23:59 | disposition home or self-care (01) ==
LOC: RAD 14:29
PROVIDERS: PCP Family Medicine; Visit Provider Obstetrics & Gynecology
DX: O98.512 Other viral diseases complicating pregnancy, second trimester (principal); B34.3 Parvovirus infection, unspecified; Z20.828 Contact with and (suspected) exposure to other viral communicable diseases; O26.612 Liver and biliary tract disorders in pregnancy, second trimester; K83.1 Obstruction of bile duct; O10.912 Unspecified pre-existing hypertension complicating pregnancy, second trimester; Z3A.27 27 weeks gestation of pregnancy
CPT/HCPCS: 76816

== ENCOUNTER 2024-05-26 11:34 | Outpatient (CLI) | payer BC, SELFPAY ==
[2024-05-26 12:01] LABS: Basophils % 0.4 % (0.1-2.0); Eosinophils # 0.1 K/mm3 (0.0-0.4); Eosinophils % 0.9 % (0.1-12.0); Hematocrit 35.7 % (37.0-47.0); Hemoglobin 11.9 g/dL (12.2-16.2); Lymphocytes # 1.4 K/mm3 (0.7-4.5); Lymphocytes % 17.3 % (10-50); Mean Corpuscular HGB Conc 33.4 g/dL (31.8-35.4); Mean Corpuscular Hemoglobin 32.2 pg (27.0-31.2); Mean Corpuscular Volume 96.5 fl (81-99); Mean Platelet Volume 9.3 fl (7.4-10.4); Monocytes # 0.3 K/mm3 (0.1-1.0); Monocytes % 4.2 % (1.7-9.3); Neutrophils # 6.2 K/mm3 (1.8-7.8); Neutrophils % 77.2 % (37.0-80.0); Platelet Count 157 K/mm3 (142-424); Red Cell Distribution Width 15.8 % (11.5-17.5); White Blood Count 8.1 K/mm3 (4.8-10.8)
== END 2024-05-26 23:59 | disposition home or self-care (01) ==
LOC: LAB 11:34
PROVIDERS: PCP Family Medicine; Visit Provider Obstetrics & Gynecology
DX: Z34.90 Encounter for supervision of normal pregnancy, unspecified, unspecified trimester (principal)
CPT/HCPCS: 36415; 85025

== ENCOUNTER 2024-06-04 09:49 | Outpatient (CLI) | payer BC, SELFPAY ==
[2024-06-04 10:20] LABS: Basophils % 0.2 % (0.1-2.0); Eosinophils # 0.1 K/mm3 (0.0-0.4); Eosinophils % 1.1 % (0.1-12.0); Hematocrit 36.2 % (37.0-47.0); Hemoglobin 11.9 g/dL (12.2-16.2); Lymphocytes # 1.4 K/mm3 (0.7-4.5); Mean Corpuscular HGB Conc 32.9 g/dL (31.8-35.4); Mean Corpuscular Hemoglobin 31.6 pg (27.0-31.2); Mean Platelet Volume 8.9 fl (7.4-10.4); Monocytes # 0.3 K/mm3 (0.1-1.0); Neutrophils # 5.5 K/mm3 (1.8-7.8); Neutrophils % 75.8 % (37.0-80.0); Platelet Count 163 K/mm3 (142-424); Red Blood Count 3.77 M/mm3 (4.20-5.40); Red Cell Distribution Width 15.7 % (11.5-17.5); White Blood Count 7.2 K/mm3 (4.8-10.8)
[2024-06-04 10:56] LABS: Albumin Level 3.4 g/dl (3.5-5.0); Chloride 108 mmol/L (98-107); Potassium 4.2 mmoL/L (3.5-5.1); Sodium 136 mmol/L (136-145)
[2024-06-04 10:59] LABS: Alanine Aminotransferase 11 U/L (12-78); Albumin/Globulin Ratio 1.2 (1.1-1.8); Alkaline Phosphatase 95 U/L (38-126); Anion Gap 6.2 mEq/L (5-15); Aspartate Amino Transferase 17 U/L (14-36); Bilirubin,Total 0.5 mg/dl (0.2-1.3); Blood Urea Nitrogen 4 mg/dl (7-17); Carbon Dioxide 26 mmol/L (22.0-30.0); Estimated Glomerular Filt Rate 149 ml/min (>60); GFR (African American) 180 ML/MIN (>60); Globulin 2.8 g/dL (1.3-3.2); Total Protein,Serum 6.2 g/dl (6.3-8.2)
[2024-06-04 11:00] LABS: Calcium 8.5 mg/dl (8.4-10.2); Glucose 82 mg/dl (74-100)
[2024-06-04 11:48] LABS: Lactate Dehydrogenase 164 U/L (313-618)
== END 2024-06-04 23:59 | disposition home or self-care (01) ==
LOC: LAB 09:50
PROVIDERS: PCP Family Medicine; Visit Provider Obstetrics & Gynecology
DX: Z34.90 Encounter for supervision of normal pregnancy, unspecified, unspecified trimester (principal)
CPT/HCPCS: 36415; 80053; 83615; 85025

== ENCOUNTER 2024-06-07 08:58 | Outpatient (CLI) | payer BC, SELFPAY ==
--- NOTE | 2024-06-07 08:59 | US_ITS ---
PROCEDURE: US OB BIOPHYSICAL PROFILE CLINICAL INDICATION: Parvovirus Exposure, Chronic Hypertension,with MCA COMPARISON: US US OB <= 14 WEEKS FETUS from 01/15/2024 US OB FOLLOW UP from 04/19/2024 US OB FOLLOW UP from 04/22/2024 US OB FOLLOW UP from 05/06/2024 US OB FOLLOW UP from 05/19/2024 US OB FOLLOW UP from 05/24/2024 FINDINGS: Transabdominal sonographic images of the uterus were obtained. From her established due date she is 29weeks 0 DAYS. The following parameters are obtained: Viable Fetus in the BREECH presentation with a posterior placenta with a lateral wrap placenta grade 1. There is a thickening of the anterior uterine wall that has developed since her last ultrasound.. It measures 2.2 cm in thickness. It has a heterogenous appearance. The cervix measures 5.0 cm. Measurements: heart Rate = 140bpm Amniotic fluid index: 11.89cm, MVP 4.63 cm. Qualitative AFV:2 Breathing movements: 2 Gross Body Movements: 2 Tone: 2 Biophysical profile score: 8 Middle cerebral artery: SD ratio: 8.45 Resistive index: 0.882, greater than 95th percentile No obvious anomalies evident.Kidneys, bladder, four-chamber heart, three-vessel cord appear normal. IMPRESSION: 1. Viable fetus in the breech presentation with a posterolateral wrapped placenta grade 1. 2. The fluid is within normal limits with an amniotic fluid index of 11.89 cm, MVP 4.63 cm. 3. Biophysical profile 8/8 with good breathing movement and movement seen. 4. Middle cerebral artery SD ratio 8.45. RI is 0.882 which is greater than the 95th percentile. 5. There is an area on the anterior uterine wall that seems to be abnormally thickened. 6. Suggest a maternal medicine consult to look at the middle cerebral artery resistance as well as this thickened area on the anterior uterine wall. 7. Limited anatomical scan appears normal. Dictated by: Itz Lamb MD 06/07/2024 13:39 Itz Lamb MD in [facility] 06/07/2024 13:39
== END 2024-06-07 23:59 | disposition home or self-care (01) ==
LOC: RAD 08:59
PROVIDERS: PCP Family Medicine; Visit Provider Obstetrics & Gynecology
DX: O98.519 Other viral diseases complicating pregnancy, unspecified trimester (principal); B34.3 Parvovirus infection, unspecified; Z20.828 Contact with and (suspected) exposure to other viral communicable diseases; O10.919 Unspecified pre-existing hypertension complicating pregnancy, unspecified trimester; O26.619 Liver and biliary tract disorders in pregnancy, unspecified trimester; K83.1 Obstruction of bile duct
CPT/HCPCS: 76819

== ENCOUNTER 2024-06-12 12:29 | Emergency (ER) | payer BC, SELFPAY ==
[2024-06-12 13:10] VITALS: BP 107/58; PULSE 84; RESP 20; TEMP 36.8; O2SAT 98; BMI 43.4
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
[2024-06-12 14:15] VITALS: BP 107/58; PULSE 84; RESP 20; TEMP 36.8; O2SAT 98
== END 2024-06-12 14:17 | disposition home or self-care (01) ==
PROVIDERS: Emergency Provider Nurse Practitioner Family; PCP Family Medicine
DX: J01.90 Acute sinusitis, unspecified (principal)
CPT/HCPCS: 99212; 99214; G0463

== ENCOUNTER 2024-06-21 09:33 | Outpatient (CLI) | payer BC, SELFPAY ==
--- NOTE | 2024-06-21 09:33 | US_ITS ---
PROCEDURE: US OB BIOPHYSICAL PROFILE CLINICAL INDICATION: Parvovirus Exposure, Chronic Hypertension COMPARISON: US US OB <= 14 WEEKS FETUS from 01/06/2024 US US OB <= 14 WEEKS FETUS from 01/15/2024 US OB FOLLOW UP from 04/19/2024 US OB FOLLOW UP from 04/22/2024 US OB FOLLOW UP from 05/06/2024 US OB FOLLOW UP from 05/19/2024 US OB FOLLOW UP from 05/24/2024 US OB BIOPHYSICAL PROFILE from 06/07/2024 FINDINGS: Transabdominal sonographic images of the uterus were obtained. From her established due date she is 31weeks 0 days. The following parameters are obtained: Viable Fetus in the breech presentation with a posterior placenta grade 1-2. Cervix measures 3.9 cm. Measurements: heart Rate = 123bpm Amniotic fluid index: 16.55cm, MVP 5.61 cm. Qualitative AFV:2 Breathing movements: 2 Gross Body Movements: 2 Tone: 2 Biophysical profile score: 8 No obvious anomalies evident.Kidneys, stomach, bladder, four-chamber heart, three-vessel cord appear normal. IMPRESSION: 1. Viable fetus in the breech presentation with a posterior placenta grade 1-2. 2. The fluid is within normal limits with amniotic fluid index of 16.55 cm, MVP 5.61 cm. 3. Biophysical profile is 8/8 with good breathing movement and movement seen. 4. Limited anatomical scan appears normal today. Dictated by: Itz Lamb MD 06/21/2024 11:10 Itz Lamb MD in [place] 06/21/2024 11:10
== END 2024-06-21 23:59 | disposition home or self-care (01) ==
LOC: RAD 09:33
PROVIDERS: PCP Family Medicine; Visit Provider Obstetrics & Gynecology
DX: O98.519 Other viral diseases complicating pregnancy, unspecified trimester (principal); B34.3 Parvovirus infection, unspecified; Z20.828 Contact with and (suspected) exposure to other viral communicable diseases; O10.919 Unspecified pre-existing hypertension complicating pregnancy, unspecified trimester; O26.619 Liver and biliary tract disorders in pregnancy, unspecified trimester; K83.1 Obstruction of bile duct
CPT/HCPCS: 76819

== ENCOUNTER 2024-06-30 17:32 | Emergency (ER) | payer BC, SELFPAY ==
[2024-06-30 18:30] VITALS: BP 110/63; PULSE 76; RESP 20; TEMP 36.9; O2SAT 99; BMI 43.5
[2024-06-30 18:43] LABS: Coronavirus 19, PCR Not Detected (NotDetected); Influenza A, PCR Not Detected (NotDetected); Influenza B, PCR Not Detected (NotDetected)
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
[2024-06-30 19:28] VITALS: BP 110/63; PULSE 76; RESP 20; TEMP 36.9; O2SAT 99
== END 2024-06-30 19:31 | disposition home or self-care (01) ==
PROVIDERS: Emergency Provider Nurse Practitioner; PCP Family Medicine
DX: O26.893 Other specified pregnancy related conditions, third trimester (principal); J20.9 Acute bronchitis, unspecified; J01.90 Acute sinusitis, unspecified; R06.2 Wheezing; R51.9 Headache, unspecified; R09.81 Nasal congestion; Z3A.32 32 weeks gestation of pregnancy
CPT/HCPCS: 87636; 99212; 99214; G0463

== ENCOUNTER 2024-07-02 10:31 | Outpatient (CLI) | payer BC, SELFPAY ==
[2024-07-02 11:24] VITALS: BP 115/63; PULSE 111; RESP 20; TEMP 36.7; O2SAT 95; BMI 43.8
[2024-07-02 11:37] LABS: Microscopic, Urine URINE MICROSCOPIC (MICROSCOPIC)
[2024-07-02 11:49] LABS: Appearance,Urine CLEAR (Clear); Bilirubin,Urine Negative (Negative); Blood, Urine Negative (Negative); Color,Urine YELLOW (Yellow); Glucose,Urine (UA) Negative (Negative); Ketones,Urine Negative (Negative); Leukocyte Esterase,Urine 2+ (Negative); Nitrate,Urine Negative (Negative); Protein,Urine Negative (Negative); Urobilinogen,Urine 0.2 EU/dl (0.2)
[2024-07-02 11:59] LABS: Amphetamine/Metha Screen,Urine Negative ng/ml (<1000)
[2024-07-02 12:00] LABS: Barbiturates Screen,Urine Negative ng/ml (<200)
[2024-07-02 12:01] LABS: Benzodiazepines Screen,Urine Negative ng/ml (<200); Cannabinoid Screen,Urine Negative ng/ml (<50)
[2024-07-02 12:02] LABS: Cocaine Screen,Urine Negative ng/ml (<300); Methadone Screen,Urine Negative ng/ml (<300)
[2024-07-02 12:03] LABS: Opiate Screen,Urine Negative ng/ml (<300)
[2024-07-02 12:04] LABS: Phencyclidine Screen,Urine Negative ng/ml (<25)
[2024-07-02 12:59] LABS: Bacteria,Urine Trace /lpf
== END 2024-07-02 12:21 | disposition home or self-care (01) ==
LOC: OBOUT 10:33 → OB 10:33
PROVIDERS: Obstetrics & Gynecology; PCP Family Medicine; Visit Provider Obstetrics & Gynecology
DX: O26.893 Other specified pregnancy related conditions, third trimester (principal); Z3A.32 32 weeks gestation of pregnancy; R10.2 Pelvic and perineal pain
CPT/HCPCS: 80307; 81001; 87086; G0463

== ENCOUNTER 2024-07-05 09:01 | Outpatient (CLI) | payer BC, SELFPAY ==
--- NOTE | 2024-07-05 09:10 | US_ITS ---
PROCEDURE: US OB BPP W/FET-MAT S/D CLINICAL INDICATION: BPP, Growth, SD Ratio Parvovirus exposure and chronic hypertension COMPARISON: US US OB FOLLOW UP from 04/19/2024 US US OB BIOPHYSICAL PROFILE from 06/21/2024 There have been multiple other follow-up ultrasounds. FINDINGS: Transabdominal sonographic images of the uterus were obtained. From her established due date she is 33weeks 0 days. The following parameters are obtained: Viable Fetus in the cephalic presentation with posterior placenta with a lateral wrap grade 2. Average ultrasound age is 34weeks 2days Estimated weight 2,230g, 4 lb 15 oz. Cervix measures 4.0 cm. Measurements: heart Rate = 142bpm BPD = 37weeks 3days, >98 percentile HC = 33weeks 3days, 21 percentile AC = 33weeks 4days, 68 percentile FL = 32weeks 4days, 26 percentile HC/AC is 1.02 FL/BPD is 0.68 FL/AC is 0.21 60 percentile Amniotic fluid index: 18.15cm, MVP 6.4 cm. Qualitative AFV:2 Breathing movements: 2 Gross Body Movements: 2 Tone: 2 Biophysical profile score: 8 Doppler evaluation of the umbilical artery: SD ratio: 1.85-2.79 Resistive index: 0.57 No obvious anomalies evident.Kidneys, profile, bladder, stomach, four-chamber heart, three-vessel cord appear normal. IMPRESSION: 1. Viable fetus in the cephalic presentation with a posterior placenta with a lateral wrap grade 2. 2. The fluid is within normal limits with an amniotic fluid index of 18.15 cm, MVP 6.40 cm. 3. Biophysical profile is 8/8 with good breathing movement and movement seen. 4. SD ratio is normal 1.85-2.79. 5. There has been good interval growth with the fetus currently 60th percentile. 6. Limited anatomical scan appears normal. Dictated by: Itz Lamb MD 07/06/2024 07:30 Itz Lamb MD in [place] 07/06/2024 07:30
== END 2024-07-05 23:59 | disposition home or self-care (01) ==
LOC: RAD 09:02
PROVIDERS: PCP Family Medicine; Visit Provider Obstetrics & Gynecology
DX: O10.919 Unspecified pre-existing hypertension complicating pregnancy, unspecified trimester (principal)
CPT/HCPCS: 76811; 76819; 76820

== ENCOUNTER 2024-07-13 13:46 | Outpatient (CLI) | payer BC, SELFPAY ==
[2024-07-13 14:07] VITALS: BMI 44.4
--- NOTE | 2024-07-13 14:08 | US_ITS ---
PROCEDURE INFORMATION: Exam: US Biophysical Profile Without Non-Stress Test Exam date and time: 07/13/2024 2:16 PM Age: 28 years old Clinical indication: Other: PT felt she was leaking fluid; ; Additional info: Leaking of fluid TECHNIQUE: Imaging protocol: US biophysical profile without non-stress testing. COMPARISON: US OB BPP W/FET-MAT S/D 07/05/2024 9:05 AM FINDINGS: heart rate: 120 bpm presentation and position: Presentation breech Amniotic fluid index: NIKO is 17.59 cm. BIOPHYSICAL PROFILE: breathing (BPP): 2 /2 gross body movement (BPP): 2 /2 tone (BPP): 2 /2 Amniotic fluid (BPP): 2 /2 Biophysical profile score (BPP): 8 /8 MATERNAL ANATOMY: Cervix: Cervical length measures 4.57 cm and is closed. No bulging membranes. IMPRESSION: 1. Single live intrauterine gestation. heart rate 120 bpm. 2. biophysical profile score 8/8. 3. Normal NIKO 17.6 cm. MVP 5.2 cm. 4. Posterior and right lateral grade 2 placenta. No placenta previa. 5. No sonographic abnormalities.
[2024-07-13 14:13] VITALS: BP 111/62; PULSE 85; RESP 17; O2SAT 100; BMI 44.4
[2024-07-13 14:28] LABS: Fetal Membrane Rupture (Rapid) Negative (Negative)
== END 2024-07-13 15:25 | disposition home or self-care (01) ==
LOC: OBOUT 13:48 → OB 13:49
PROVIDERS: PCP Family Medicine; Visit Provider Obstetrics & Gynecology
DX: O42.913 Preterm premature rupture of membranes, unspecified as to length of time between rupture and onset of labor, third trimester (principal); Z3A.34 34 weeks gestation of pregnancy
CPT/HCPCS: 76819; 84112; G0463

== ENCOUNTER 2024-07-15 09:22 | Outpatient (CLI) | payer BC, SELFPAY | END 2024-07-15 23:59 | disposition home or self-care (01) | LOC: RAD 09:23 | PROVIDERS: PCP Family Medicine; Visit Provider Obstetrics & Gynecology | DX: B34.9 Viral infection, unspecified (principal) ==

== ENCOUNTER 2024-07-19 10:47 | Outpatient (CLI) | payer BC, SELFPAY ==
[2024-07-19 10:05] VITALS: BP 97/63; PULSE 90; RESP 16; TEMP 36.9; O2SAT 97; BMI 44.6
--- OUTSIDE RECORDS SUMMARY | 2024-08-10 10:09 | XMS_ITS | Patient Health Record ---
[facility] Address [address] [place] [id number] Care Team Providers Care Shoe Treer Name Role Phone Johnathan Duenas Primary Care Provider Radha Awad Unavailable [phone] ALLERGIES No Known Allergies RESULTS Component Value Reference Range Notes CBC Fingerstick (in house) Reviewed date:09/12/2023 04:09:29 PM Interpretation: Performing Lab: Notes/Report: wbc 6.9 3.5 - 10 lym 26.5 15 - 50 mid 7.2 2 - 15 gran 66.3 35 - 80 rbc 4.26 3.5 - 5.5 hgb 12.8 11.5 - 16.5 hct 37.7 35 - 55 mcv 88.6 75 - 100 mch 30.0 25 - 35 mchc 33.8 31 - 38 plat 160 100 - 400 CBC Fingerstick (in house) Reviewed date:07/13/2024 11:14:12 AM Interpretation: Performing Lab: Notes/Report: wbc 6.4 3.5 - 10 lym 19.6% 15 - 50 mid 4.4% 2 - 15 gran 76.0% 35 - 80 rbc 3.57 3.5 - 5.5 hgb 11.1 11.5 - 16.5 hct 32.5 35 - 55 mcv 91.1 75 - 100 mch 31.0 25 - 35 mchc 34.0 31 - 38 plat 102 100 - 400 CBC Fingerstick (in house) Reviewed date:10/02/2023 01:14:24 PM Interpretation: Performing Lab: Notes/Report: wbc 6.4 3.5 - 10 lym 27.8 15 - 50 mid 6.0 2 - 15 gran 66.2 35 - 80 rbc 4.86 3.5 - 5.5 hgb 14.5 11.5 - 16.5 hct 42.9 35 - 55 mcv 88.3 75 - 100 mch 29.9 25 - 35 mchc 33.8 31 - 38 plat 183 100 - 400 P-Uric Acid Reviewed date:11/07/2023 02:02:58 PM Interpretation:Normal Performing Lab: Notes/Report: Test performed by [facility] , [address], [place] [address] Nick Brady MD, Senior Portfolio Analyst CLIA: [id number] Uric Acid 4.8 2.4-7.0 mg/dL P-Microalbumin/Creatinine, R andom Urine Sample Reviewed date:11/07/2023 02:02:58 PM Interpretation:Normal Performing Lab: Notes/Report: Test performed by [facility] [address] , [address], [place] [address] Nick Brady MD, Senior Portfolio Analyst CLIA: [id number] Albumin/Creatinine Ratio, Urine 3 0-30 ug/m g Microalbumin, Urine, Random 0.5 Creatinine, Urine 164.8 P-TSH reflex to FT4 Reviewed date:11/07/2023 02:02:57 PM Interpretation:Normal Performing Lab: Notes/Report: Test performed by [facility] [address] , [address], [place] [address] Nick Brady MD, Senior Portfolio Analyst CLIA: [id number] TSH reflex to FT4 2.69 0.43-5.25 mU/L P-Lipid Panel Reviewed date:11/07/2023 02:02:57 PM Interpretation:Normal Performing Lab: Notes/Report: Test performed by [facility] [address] , [address], [place] [address] Nick Brady MD, Senior Portfolio Analyst CLIA: [id number] Cholesterol 166 <200 mg/dL Triglycerides 106 <150 mg/dL HDL Cholesterol 56 >39 mg/dL Cholesterol / HDL Ratio 2.96 0.00-4.44 Ratio Non-HDL Cholesterol 110 <130 mg/dL LDL Cholesterol (Calculation) 89 <130 mg/dL LDL Cholesterol Levels* Less than 100 mg/dL Optimal 100 to 129 mg/dL Near Optimal/ Above Optimal 130 to 159 mg/dL Borderline High 160 to 189 mg/dL High 190 mg/dL and above Very High * Categories as recommended by the 2004 ATPIII guidelines LDL/HDL Ratio 1.6 <3.3 Ratio LDL Cholesterol Patient History Test Date: 11/06/2023 LDL Results: 89 Units: mg/dL % Change: - P-Basic Metabolic Panel (BMP ) Reviewed date:11/07/2023 02:02:57 PM Interpretation:Normal Performing Lab: Notes/Report: Test performed by [facility], [address] , [address], [place] [address] Nick Brady MD, Senior Portfolio Analyst CLIA: [id number] Sodium 139 135-145 mEq/L Potassium 4.1 3.5-5.3 mEq/L Chloride 103 97-108 mEq/L CO2 27 22-32 mEq/L Glucose 79 65-99 mg/dL BUN 9 6-20 mg/dL Creatinine 0.66 0.50-1.00 mg/dL Calcium 9.5 8.6-10.4 mg/dL eGFR by Creatinine 124 >59 mL/min/1.73m2 CBC Venipuncture (in house) Reviewed date:11/07/2023 02:02:58 PM Interpretation:Normal Performing Lab: Notes/Report: Normal wbc 5.2 3.5 - 10 lymph 30.3 15 - 50 mid 7.8 2 - 15 gran 61.9 35 - 80 rbc 4.45 3.5 - 5.5 hgb 13.0 11.5 - 16.5 hct 38.7 35 - 55 mcv 87.0 75 - 100 mch 29.4 25 - 35 mchc 33.7 31 - 38 platlet 212 100 - 400 CBC Fingerstick (in house) Reviewed date:09/04/2023 08:13:44 AM Interpretation: Performing Lab: Notes/Report: wbc 5.7 3.5 - 10 lym 24.7% 15 - 50 mid 5.8% 2 - 15 gran 69.5% 35 - 80 rbc 3.44 3.5 - 5.5 hgb 10.4 11.5 - 16.5 hct 31.2 35 - 55 mcv 90.7 75 - 100 mch 30.2 25 - 35 mchc 33.3 31 - 38 plat 158 100 - 400 REASON FOR REFERRAL No Information MEDICATIONS Medication SIG (Take, Route, Frequency, Duration) Notes Start Date End Date Status Cefdinir 300 MG 1 cap(s) Orally Two times a day for 7 days 07/13/2024 Active Aspirin 81 MG 1 tablet Orally Once a day for 30 day(s) Active Pepcid AC 10 MG 1 tablet as needed O rally Twice a day Active Metamucil Fiber - as directed Orally Active Vitamin Act ramakrishna Ferrous Sulfate 325 (65 Fe) MG 1 tablet Orally Three times a Week Active IMMUNIZATIONS Vaccine Route Administration Date Status Comme nts COVID 19 Pfizer Unknown 07/17/2021 Administered COVID 19 Pfizer Unknown 08/06/2021 Administered Tetanus Tdap-Adacel (over 7yrs) Unknown 04/02/2021 Admi nistered SOCIAL HISTORY Sex Assigned At : 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 Observation Description Sex Assigned At Unknown PROBLEMS Problem Type ICD Code Onset Dates Problem Status W/U Status Risk SNOMED Code Notes Problem Essential hypertension (I10) Active confirmed 18037682 Problem Depression with anxiety (F41.8) Active confirmed 637464929 Problem Other chronic pain (G89.29) Active confirmed 13261443 Problem Rhinitis, unspecified type (J31.0) Active confirmed 68322224 Problem Non morbid obesity (E66.9) Active confirmed 392900120 Problem Primary hypertension (I10) Active confirmed 05439051 VITAL SIGNS Heart Rate 106 /min 07/13/2024 Blood pressure diastolic 70 mm Hg 07/13/2024 Height 61.5 in 07/13/2024 Blood pressure systolic 116 mm Hg 07/13/2024 Weight 236 lbs 07/13/2024 BMI 43.86 kg/m2 07/13/2024 Encounters Encounter Location Date Provider Diagnosis [facility] [address] [facility] [address] [place], [place] [phone] 09/03/2023 Johnathan Northfield Rhinitis, unspecifie d type J31.0 and Anemia, unspecified type D64.9 [facility] [address] [facility] [address] [place], [place] [id number] 09/12/2023 Johnathan Northfield Nonintractable heada patricio, unspecified chronicity pattern, unspecified headache type R51.9 and Anemia, unspecified type D64.9 [facility] [address] [facility] [address] [place], [place] [id number] 09/15/2023 Johnathan Northfield [facility] [address] [facility] [address] [place], [place] [id number] 10/02/2023 Johnathan Northfield Bronchitis J40 and Anemia, unspecified type D64.9 [facility] [address] [facility] [address] [place], [place] [id number] 11/06/2023 Johnathan Northfield Primary hypertension I10 and Rash R21 [facility] [address] [facility] [address] [place], [place] [id number] 12/19/2023 Johnathan Northfield [facility] [address] [facility] [address] [place], [place] [id number] 05/12/2024 Johnathan Northfield Essential hypertensi on I10 [facility] [address] [facility] [address] [place], [place] [id number] 07/02/2024 Radha Crowdy [facility] [address] [facility] [address] [place] [id number] 07/13/2024 Johnathan Northfield Cough, unspecified t ype R05.9 ASSESSMENTS Encounter Date Diagnosis Assessment Notes Treatment Notes Treatment Clinical Notes 09/12/2023 Anemia, unspecified type (ICD-10 - D64.9) H/H improved 09/12/2023 Nonintractable headache, unspecified chronicity pattern, unspecified headache type (ICD-10 - R51.9) Neurtec caused her hair to fall out 09/03/2023 Anemia, unspecified type (ICD-10 - D64.9) 09/03/2023 Rhinitis, unspecifie d type (ICD-10 - J31.0) 10/02/2023 Bronchitis (ICD-10 - J40) Improved 10/02/2023 Anemia, unspecified type (ICD-10 - D64.9) Improved 11/06/2023 Rash (ICD-10 - R21) 11/06/2023 Primary hypertension (ICD-10 - I10) 07/13/2024 Cough, unspecified type (ICD-10 - R05.9) 05/12/2024 Essential hypertension (ICD-10 - I10) Patient is doing well off of medication PLAN OF TREATMENT Pending Test Test Name Order Date P-Monospot 04/30/2023 Next Appt Details Provider Name:Johnathan Maldonado ry, 11/10/2024 10:00:00 AM, [address], [address], [place], [place], [id number], Insurance Providers Payer Name Payer Address Payer Phone Subscriber Number Group Number Insured Name Patient Relationship to Insured Coverage Start Date Coverage End Date [facility] [address] [place] [address] [id number] ISABELA DENNY Self - patient is the insured MEDICAL (GENERAL) HISTORY 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 History ICD Code Allergic Rhinitis Peptic Ulcer Disease Hypertension Depression Surgical History Surgery Date(Month/Year) Tonsillectomy 2000 Bilateral Ankles 2019 Cholecystectomy 2017 [place] Teeth 2014 [facility] 2019 Hospitalization History Reason Date(Month/Year)
--- OUTSIDE RECORDS SUMMARY | 2024-08-10 10:09 | XMS_ITS ---
Author Organization [facility] Address [address] [facility] [address] [facility] [address] [place] [id number] Care Team Providers Care Gas Station Service Attendant Name Role Phone Johnathan Duenas Primary Care Provider ALLERGIES No Known Allergies REASON FOR VISIT 6 month check MEDICATIONS Medication SIG (Take, Route, Fr equency, Duration) Notes Start Date End Date Status Aspirin 81 MG 1 tablet Orally Once a day for 30 day(s) Active Pepcid AC 10 MG 1 tablet as needed O rally Twice a day Active Metamucil Fiber - as directed Orally Active PROBLEMS Problem Type ICD Code Onset Dates Problem Status W/U Status Risk SNOMED Code Notes Problem Essential hypertension (I10) Active confirmed 57408584 VITAL SIGNS Weight 224 lbs 05/12/2024 Blood pressure systolic 124 mm Hg 05/12/20 24 Blood pressure diastolic 80 mm Hg 024 Heart Rate 102 /min 05/12/2024 Height 61.5 in 05/12/2024 BMI 41.63 kg/m2 05/12/2024 Encounters Encounter Location Date Provider Diagnosis [facility] [address] [facility] [address] [facility] [address] [place] [id number] 05/12/2024 Johnathan Duenas Essential hypertensi on I10 ASSESSMENTS Encounter Date Diagnosis Assessment Notes Treatment Notes Treatment Clinical Notes 05/12/2024 Essential hypertension (ICD-10 - I10) Patient is doing well off of medication PLAN OF TREATMENT Treatment Notes Assessment Notes Essential hypertension Patient is doing well off of medication Next Appt Details Follow Up: 6 Months, Reason: Provider Name:Johnathan schmitt, 11/10/2024 10:00:00 AM, [address] [facility], [address], [place], [phone], Progress Notes * Examination Category Sub-Category Detail Notes Cardiology Lungs: clear, no rales or wheezes Heart sounds: RRR, normal S1, S2 Peripheral pulses: 2 plus bilateral General Appearance: pleasant, NAD History and Physical Notes * HPI (History of Present Illness) Category Sub-Category Detail Notes Cardiology Blood Pressure Elevated Pt here for 6 mo f/u on hypertension, states she is doing well and does not have any concerns. Patient is approximately 25 weeks
--- OUTSIDE RECORDS SUMMARY | 2024-08-10 10:09 | XMS_ITS ---
Author Organization [facility] Address [address] [facility] [address] [place] [id number] Care Team Providers Care Regulatory Associate Name Role Phone Johnathan Duenas Primary Care Provider Radha Awad [phone] REASON FOR VISIT cough, dizzy, back pain Encounters Encounter Location Date Provider Diagnosis [facility] [address] [facility] [address] [place] [id number] 07/02/2024 Radha Awad PLAN OF TREATMENT Next Appt Details Provider Name:Johnathan Maldonado ry, 11/10/2024 10:00:00 AM, [address], [address], [place], [phone],
--- OUTSIDE RECORDS SUMMARY | 2024-08-10 10:09 | XMS_ITS ---
Author Organization [facility] Address [address] [place] [id number] Care Team Providers Care Living Manager Name Role Phone Johnathan Duenas Primary Care Provider ALLERGIES No Known Allergies RESULTS Component Value Reference Range Notes CBC Fingerstick (in house) Reviewed date:07/13/2024 11:14:12 [...] - 38 plat 102 100 - 400 REASON FOR VISIT consult MEDICATIONS Medication SIG (Take, Route, Frequency, Duration) Notes Start Date End Date Status Cefdinir 300 MG 1 cap(s) Orally Two times a day for 7 days 07/13/2024 Active Aspirin 81 MG 1 tablet Orally Once a day for 30 day(s) Active Pepcid AC 10 MG 1 tablet as needed O rally Twice a day Active Vitamin Act ramakrishna Ferrous Sulfate 325 (65 Fe) MG 1 tablet Orally Three times a Week Active Metamucil Fiber - as directed Orally Active VITAL SIGNS Weight 236 lbs 07/13/2024 Blood pressure systolic 116 mm Hg 07/13/20 24 Blood pressure diastolic 70 mm Hg 024 Heart Rate 106 /min 07/13/2024 Height 61.5 in 07/13/2024 BMI 43.86 kg/m2 07/13/2024 Encounters Encounter Location Date Provider Diagnosis [facility] [address] [place] [id number] 07/13/2024 Johnathan Duenas Cough, unspecified t ype R05.9 ASSESSMENTS Encounter Date Diagnosis Assessment Notes Treatment Notes Treatment Clinical Notes 07/13/2024 Cough, unspecified type (ICD-10 - R05.9) PLAN OF TREATMENT Medication Medication Name Sig Start Date Stop Date Notes Cefdinir 300 MG 1 cap(s) Orally Two times a day for 7 days 07/13/2024 Next Appt Details Follow Up: prn, Reason: Provider Name:Johnathan Maldonado ry, 11/10/2024 10:00:00 AM, [address] [facility] [address] [facility], [address], [place], [phone], Progress Notes * Examination Category Sub-Category Detail Notes ENT/Respiratory Oral cavity : no erythema or e xudate seen on pharynx Neck : no cervical lymphade nopathy Heart : RRR, normal S1 S2 Lungs: clear to auscultatio n bilaterally General Appearance: NAD Eyes: PERRLA, sclera clear History and Physical Notes * HPI (History of Present Illness) Category Sub-Category Detail Notes HPI Patient is here today for Pt her e to consult about unborn child. Pt currently 34 weeks and states she was told that baby needs x-rays and CBC when he is born. Pt states baby had perforated bowel that healed itself and he was anemic as well
== END 2024-07-19 10:48 | disposition home or self-care (01) ==
LOC: OBOUT 10:47
PROVIDERS: PCP Family Medicine; Visit Provider Obstetrics & Gynecology
DX: O10.913 Unspecified pre-existing hypertension complicating pregnancy, third trimester (principal); Z3A.35 35 weeks gestation of pregnancy
CPT/HCPCS: G0463

== ENCOUNTER 2024-07-22 13:19 | Outpatient (CLI) | payer BC, SELFPAY ==
--- NOTE | 2024-07-22 13:19 | US_ITS ---
PROCEDURE: US OB BIOPHYSICAL PROFILE CLINICAL INDICATION: Parvovirus Exposure, Chronic Hypertension COMPARISON: US US OB <= 14 WEEKS FETUS from 01/15/2024 US OB FOLLOW UP from 04/19/2024 [facility] OB FOLLOW UP from 05/06/2024 [facility] OB FOLLOW UP from 05/19/2024 [facility] OB FOLLOW UP from 05/24/2024 US OB BIOPHYSICAL PROFILE from 06/07/2024 [facility] OB BIOPHYSICAL PROFILE from 06/21/2024 US OB BPP W/FET-MAT S/D from 07/05/2024 US OB BPP W/FET-MAT S/D from 07/13/2024 FINDINGS: Transabdominal sonographic images of the uterus were obtained. From her established due date she is 35weeks 3days. The following parameters are obtained: Viable Fetus in the cephalic presentation with a posterior placenta grade 2. Average ultrasound age is 36weeks 1day Estimated weight 2,810g, 6 lb 3 oz Cervix measures 4.7 cm. Measurements: heart Rate = 136bpm BPD = 36weeks 1day, 74 percentile HC = 37weeks 4days, 70 percentile AC = 36weeks 5days, 87 percentile FL = 33weeks 6days, 10 percentile HC/AC is 1.01 FL/BPD is 0.74 FL/AC is 0.2 64 percentile Amniotic fluid index: 13.13cm, MVP 5.19 cm. Qualitative AFV:2 Breathing movements: 2 Gross Body Movements: 2 Tone: 2 Biophysical profile score: 8 No obvious anomalies evident.Kidneys, profile, stomach, bladder, four-chamber heart, three-vessel cord appear normal. IMPRESSION: 1. Viable fetus in the cephalic presentation with a posterior placenta grade 2. 2. The fluid is within normal limits with an amniotic fluid index 13.13 cm, MVP 5.19 cm. 3. Biophysical profile is 8/8 with good breathing movement and movement seen. 4. There has been good interval growth with the fetus currently 64th percentile. The AC is 87th percentile. 5. Limited anatomical scan appears normal. Dictated by: Itz Lamb MD 07/22/2024 15:44 Itz Lmab MD in [place] 07/22/2024 15:44
== END 2024-07-22 23:59 | disposition home or self-care (01) ==
LOC: RAD 13:19
PROVIDERS: PCP Family Medicine; Visit Provider Obstetrics & Gynecology
DX: O98.513 Other viral diseases complicating pregnancy, third trimester (principal); B34.3 Parvovirus infection, unspecified; Z20.828 Contact with and (suspected) exposure to other viral communicable diseases; O10.913 Unspecified pre-existing hypertension complicating pregnancy, third trimester; O99.213 Obesity complicating pregnancy, third trimester; Z3A.35 35 weeks gestation of pregnancy
CPT/HCPCS: 76816; 76819

== ENCOUNTER 2024-07-23 08:41 | Outpatient (CLI) | payer BC, SELFPAY | END 2024-07-23 23:59 | disposition home or self-care (01) | LOC: LAB.DROPOF 07-26 08:42 | PROVIDERS: PCP Obstetrics & Gynecology; Visit Provider Obstetrics & Gynecology | DX: Z34.90 Encounter for supervision of normal pregnancy, unspecified, unspecified trimester (principal) | CPT/HCPCS: 86403 ==

== ENCOUNTER 2024-07-26 09:10 | Outpatient (CLI) | payer BC, SELFPAY ==
[2024-07-26 10:15] VITALS: BP 96/65; PULSE 116; RESP 18; TEMP 36.8; O2SAT 97; BMI 44.6
== END 2024-07-26 10:22 ==
LOC: OBOUT 09:12 → OB 09:13
PROVIDERS: PCP Family Medicine; Visit Provider Obstetrics & Gynecology
DX: O10.913 Unspecified pre-existing hypertension complicating pregnancy, third trimester (principal); Z3A.36 36 weeks gestation of pregnancy
CPT/HCPCS: G0463

== ENCOUNTER 2024-07-29 09:24 | Outpatient (CLI) | payer BC, SELFPAY ==
--- NOTE | 2024-07-29 09:24 | US_ITS ---
PROCEDURE: US OB BIOPHYSICAL PROFILE CLINICAL INDICATION: lga, chronic hypertension COMPARISON: US US OB <= 14 WEEKS FETUS from 01/06/2024 US OB <= 14 WEEKS FETUS from 01/15/2024 US OB FOLLOW UP from 04/19/2024 US OB FOLLOW UP from 04/22/2024 US OB FOLLOW UP from 05/06/2024 US OB FOLLOW UP from 05/19/2024 [facility] [place] OB FOLLOW UP from 05/24/2024 [facility] [place] OB BIOPHYSICAL PROFILE from 06/07/2024 [facility] [place] OB BIOPHYSICAL PROFILE from 06/21/2024 US OB BPP W/FET-MAT S/D from 07/05/2024 US OB BPP W/FET-MAT S/D from 07/13/2024 US OB BIOPHYSICAL PROFILE from 07/22/2024 FINDINGS: Transabdominal sonographic images of the uterus were obtained. From her established due date she is 36weeks 3days. The following parameters are obtained: Viable Fetus in the cephalic presentation with a posterior placenta grade 2. Average ultrasound age is 37weeks 5days Estimated weight 3,351g, 7 lb 6 oz Cervix measures 6.48 cm Measurements: heart Rate = rate not documented BPD = 37weeks 0 days, 74 percentile HC = 38weeks 1day, 64 percentile AC = 38weeks 5days, 98 percentile FL = 36weeks 5days, 52 percentile HC/AC is 0.96 FL/BPD is 0.79 FL/AC is 0.21 89 percentile Amniotic fluid index: 17.82cm, MVP 5.87 cm. Qualitative AFV:2 Breathing movements: 2 Gross Body Movements: 2 Tone: 2 Biophysical profile score: 8 No obvious anomalies evident.Kidneys, bladder, stomach, three-vessel cord appear normal. IMPRESSION: 1. Viable fetus in the cephalic presentation with a posterior placenta grade 2. 2. The fluid is within normal limits with an amniotic fluid index 17.82 cm, MVP 5.87 cm. 3. Biophysical profile is 8/8 with good breathing movement and movement seen. 4. There has been acceleration of the growth with the AC currently almost 2 weeks ahead at 98 percentile. 5. Limited anatomical scan appears normal. Dictated by: Itz Lamb MD 07/29/2024 11:28 Itz Lamb MD in [place] 07/29/2024 11:28
== END 2024-07-29 23:59 | disposition home or self-care (01) ==
LOC: RAD 09:24
PROVIDERS: PCP Family Medicine; Visit Provider Obstetrics & Gynecology
DX: O36.63X0 Maternal care for excessive fetal growth, third trimester, not applicable or unspecified (principal); O10.913 Unspecified pre-existing hypertension complicating pregnancy, third trimester; Z3A.36 36 weeks gestation of pregnancy
CPT/HCPCS: 76816; 76819

== ENCOUNTER 2024-07-30 15:40 | Outpatient (CLI) | payer BC, SELFPAY ==
[2024-07-30 15:44] VITALS: BMI 45.1
[2024-07-30 16:08] VITALS: BP 105/61; PULSE 88; RESP 14; TEMP 36.9; O2SAT 99; BMI 45.1
[2024-07-30 16:22] LABS: Amphetamine/Metha Screen,Urine Negative ng/ml (<1000)
[2024-07-30 16:23] LABS: Barbiturates Screen,Urine Negative ng/ml (<200); Benzodiazepines Screen,Urine Negative ng/ml (<200)
[2024-07-30 16:24] LABS: Cannabinoid Screen,Urine Negative ng/ml (<50)
[2024-07-30 16:25] LABS: Cocaine Screen,Urine Negative ng/ml (<300); Methadone Screen,Urine Negative ng/ml (<300)
[2024-07-30 16:26] LABS: Opiate Screen,Urine Negative ng/ml (<300); Phencyclidine Screen,Urine Negative ng/ml (<25)
[2024-07-30 16:48] LABS: Microscopic, Urine URINE MICROSCOPIC (MICROSCOPIC)
[2024-07-30 16:49] LABS: Appearance,Urine CLEAR (Clear); Bilirubin,Urine Negative (Negative); Blood, Urine Negative (Negative); Color,Urine YELLOW (Yellow); Glucose,Urine (UA) Negative (Negative); Ketones,Urine Negative (Negative); Leukocyte Esterase,Urine 1+ (Negative); Nitrate,Urine Negative (Negative); Protein,Urine Negative (Negative); Specific Gravity, Urine 1.015 (1.005-1.030); Urobilinogen,Urine 0.2 EU/dl (0.2)
[2024-07-30 17:10] LABS: Bacteria,Urine 2+ /lpf; RBC,Urine Occasional #/hpf (0-3); WBC,Urine 50-100 #/hpf (0-3)
[2024-07-30 17:11] LABS: Calcium Oxalate Crystals,Urine 4+ /lpf
== END 2024-07-30 16:51 | disposition home or self-care (01) ==
LOC: OBOUT 15:42 → OB 15:42
PROVIDERS: PCP Family Medicine; Visit Provider Nurse Practitioner Obstetrics & Gynecology
DX: O36.8130 Decreased fetal movements, third trimester, not applicable or unspecified (principal); Z3A.36 36 weeks gestation of pregnancy
CPT/HCPCS: 80307; 81001; 87086; G0463

== ENCOUNTER 2024-08-03 02:00 | Outpatient (CLI) | payer BC, SELFPAY ==
[2024-08-03 02:07] VITALS: BMI 46.5
[2024-08-03 02:30] LABS: Microscopic, Urine URINE MICROSCOPIC (MICROSCOPIC)
[2024-08-03 02:37] LABS: Appearance,Urine CLEAR (Clear); Bilirubin,Urine Negative (Negative); Blood, Urine Negative (Negative); Color,Urine YELLOW (Yellow); Glucose,Urine (UA) Negative (Negative); Ketones,Urine Negative (Negative); Leukocyte Esterase,Urine 1+ (Negative); Nitrate,Urine Negative (Negative); Protein,Urine Negative (Negative); Urobilinogen,Urine 0.2 EU/dl (0.2)
[2024-08-03 02:43] VITALS: BP 120/66; PULSE 70; RESP 18; TEMP 36.7; O2SAT 98; BMI 46.5
[2024-08-03 02:51] LABS: Fetal Membrane Rupture (Rapid) Negative (Negative)
[2024-08-03 02:52] LABS: Bacteria,Urine 1+ /lpf
[2024-08-03 03:08] LABS: Benzodiazepines Screen,Urine Negative ng/ml (<200)
[2024-08-03 03:09] LABS: Amphetamine/Metha Screen,Urine Negative ng/ml (<1000); Barbiturates Screen,Urine Negative ng/ml (<200)
[2024-08-03 03:10] LABS: Cannabinoid Screen,Urine Negative ng/ml (<50)
[2024-08-03 03:11] LABS: Cocaine Screen,Urine Negative ng/ml (<300); Methadone Screen,Urine Negative ng/ml (<300)
[2024-08-03 03:12] LABS: Opiate Screen,Urine Negative ng/ml (<300)
[2024-08-03 03:13] LABS: Phencyclidine Screen,Urine Negative ng/ml (<25)
[2024-08-03] MEDS: LACTATED RINGERS 1000ML 1,000 ML 999 ML IV (03:20)
== END 2024-08-03 04:36 | disposition home or self-care (01) ==
LOC: OBOUT 02:01 → OB 02:02
PROVIDERS: PCP Family Medicine; Visit Provider Obstetrics & Gynecology
DX: O42.92 Full-term premature rupture of membranes, unspecified as to length of time between rupture and onset of labor (principal); Z3A.37 37 weeks gestation of pregnancy
CPT/HCPCS: 80307; 81001; 84112; 87086; G0463; J7120

== ENCOUNTER 2024-08-05 13:42 | Outpatient (CLI) | payer BC, SELFPAY ==
--- NOTE | 2024-08-05 13:43 | US_ITS ---
PROCEDURE: US OB BIOPHYSICAL PROFILE CLINICAL INDICATION: Parvovirus Exposure, Chronic Hypertension COMPARISON: US US OB <= 14 WEEKS FETUS from 01/06/2024 US OB <= 14 WEEKS FETUS from 01/15/2024 [facility] OB FOLLOW UP from 04/19/2024 [facility] OB FOLLOW UP from 04/22/2024 [facility] OB FOLLOW UP from 05/06/2024 [facility] OB FOLLOW UP from 05/19/2024 [facility] OB FOLLOW UP from 05/24/2024 [facility] OB BIOPHYSICAL PROFILE from 06/07/2024 [facility] OB BIOPHYSICAL PROFILE from 06/21/2024 [facility] OB BPP W/FET-MAT S/D from 07/05/2024 [facility] OB BPP W/FET-MAT S/D from 07/13/2024 [facility] OB BIOPHYSICAL PROFILE from 07/22/2024 [facility] OB BIOPHYSICAL PROFILE from 07/29/2024 FINDINGS: Transabdominal sonographic images of the uterus were obtained. From her established due date she is 37weeks 3days. The following parameters are obtained: Viable Fetus in the cephalic presentation with a posterior placenta grade 2. Average ultrasound age is 38weeks 2days Estimated weight 3,382g, 7 lb 7 oz Cervix measures 4.13 cm in length transvaginally. Measurements: heart Rate = 114bpm BPD = 37weeks 6days, 76 percentile HC = 39weeks 6days, 82 percentile AC = 38weeks 2days, 84 percentile FL = 37weeks 0 days, 37 percentile HC/AC is 1 FL/BPD is 0.78 FL/AC is 0.21 75 percentile Amniotic fluid index: 16.93cm, MVP 6.06 cm. Qualitative AFV:2 Breathing movements: 2 Gross Body Movements: 2 Tone: 2 Biophysical profile score: 8 No obvious anomalies evident.Kidneys, bladder, four-chamber heart, three-vessel cord appear normal. The head is not engaged and there appears to be free floating umbilical cord in front of the head. IMPRESSION: 1. Viable fetus in the cephalic presentation with a posterior placenta grade 2. The head was initially cephalic and then became transverse with head towards the left side. 2. There is free-floating umbilical cord in front of the head. 3. Biophysical profile is 8/8 with good breathing movement and movement seen. 4. There has been good interval growth with the fetus currently 75th percentile. 5. Limited anatomical scan appears normal. Dictated by: Itz Lamb MD 08/06/2024 13:23 Itz Lamb MD in OV 08/06/2024 13:23
== END 2024-08-05 23:59 | disposition home or self-care (01) ==
LOC: RAD 13:43
PROVIDERS: PCP Family Medicine; Visit Provider Obstetrics & Gynecology
DX: O10.913 Unspecified pre-existing hypertension complicating pregnancy, third trimester (principal); O98.513 Other viral diseases complicating pregnancy, third trimester; B34.3 Parvovirus infection, unspecified; Z20.828 Contact with and (suspected) exposure to other viral communicable diseases; O26.613 Liver and biliary tract disorders in pregnancy, third trimester; K83.1 Obstruction of bile duct; O36.8130 Decreased fetal movements, third trimester, not applicable or unspecified; Z3A.37 37 weeks gestation of pregnancy
CPT/HCPCS: 76816; 76819

== ENCOUNTER 2024-08-07 06:05 | Outpatient (CLI) | payer BC, SELFPAY ==
[2024-08-07 06:10] VITALS: BMI 44.7
[2024-08-07 06:20] VITALS: BMI 99.5
[2024-08-07 06:34] LABS: Microscopic, Urine URINE MICROSCOPIC (MICROSCOPIC)
[2024-08-07 07:03] LABS: Appearance,Urine CLEAR (Clear); Bilirubin,Urine Negative (Negative); Blood, Urine Negative (Negative); Color,Urine YELLOW (Yellow); Glucose,Urine (UA) Negative (Negative); Ketones,Urine Negative (Negative); Leukocyte Esterase,Urine 1+ (Negative); Nitrate,Urine Negative (Negative); Protein,Urine Negative (Negative); Urobilinogen,Urine 0.2 EU/dl (0.2)
[2024-08-07 07:15] LABS: Barbiturates Screen,Urine Negative ng/ml (<200)
[2024-08-07 07:16] LABS: Amphetamine/Metha Screen,Urine Negative ng/ml (<1000); Benzodiazepines Screen,Urine Negative ng/ml (<200)
[2024-08-07 07:17] LABS: Cannabinoid Screen,Urine Negative ng/ml (<50)
[2024-08-07 07:18] LABS: Cocaine Screen,Urine Negative ng/ml (<300)
[2024-08-07 07:19] LABS: Basophils % 0.5 % (0.1-2.0); Eosinophils # 0.1 K/mm3 (0.0-0.4); Eosinophils % 1.1 % (0.1-12.0); Hematocrit 43.4 % (37.0-47.0); Hemoglobin 14.8 g/dL (12.2-16.2); Lymphocytes # 1.2 K/mm3 (0.7-4.5); Lymphocytes % 19.7 % (10-50); Mean Corpuscular Hemoglobin 31.2 pg (27.0-31.2); Mean Corpuscular Volume 91.8 fl (81-99); Mean Platelet Volume 10.3 fl (7.4-10.4); Monocytes # 0.3 K/mm3 (0.1-1.0); Monocytes % 5.5 % (1.7-9.3); Neutrophils # 4.5 K/mm3 (1.8-7.8); Neutrophils % 73.2 % (37.0-80.0); Platelet Count 90 K/mm3 (142-424); Red Blood Count 4.73 M/mm3 (4.20-5.40); Red Cell Distribution Width 15.4 % (11.5-17.5); White Blood Count 6.1 K/mm3 (4.8-10.8)
[2024-08-07 07:19] LABS: Opiate Screen,Urine Negative ng/ml (<300); Phencyclidine Screen,Urine Negative ng/ml (<25)
[2024-08-07 07:24] LABS: Alanine Aminotransferase 18 U/L (12-78); Albumin Level 3.4 g/dl (3.5-5.0); Albumin/Globulin Ratio 1.1 (1.1-1.8); Alkaline Phosphatase 91 U/L (38-126); Anion Gap 5.7 mEq/L (5-15); Aspartate Amino Transferase 22 U/L (14-36); Bilirubin,Total 0.7 mg/dl (0.2-1.3); Blood Urea Nitrogen 4 mg/dl (7-17); Calcium 9.3 mg/dl (8.4-10.2); Carbon Dioxide 23 mmol/L (22.0-30.0); Chloride 107 mmol/L (98-107); Creatinine Clearance Estimated 129 mL/min (50-200); Estimated Glomerular Filt Rate 149 ml/min (>60); GFR (African American) 180 ML/MIN (>60); Globulin 3.1 g/dL (1.3-3.2); Glucose 99 mg/dl (74-100); Potassium 3.7 mmoL/L (3.5-5.1); Sodium 132 mmol/L (136-145); Total Protein,Serum 6.5 g/dl (6.3-8.2)
[2024-08-07 07:30] LABS: Methadone Screen,Urine Negative ng/ml (<300)
[2024-08-07 07:35] LABS: Bacteria,Urine Trace /lpf
[2024-08-07] MEDS: LACTATED RINGERS 1000ML 1,000 ML 999 ML IV (07:48)
[2024-08-07] MEDS: ACETAMINOPHEN 500MG TAB 1000 MG PO (07:49)
== END 2024-08-07 09:12 | disposition home or self-care (01) ==
LOC: OBOUT 06:06 → OB 06:07
PROVIDERS: PCP Family Medicine; Visit Provider Obstetrics & Gynecology
DX: O26.893 Other specified pregnancy related conditions, third trimester (principal); Z3A.37 37 weeks gestation of pregnancy; R51.9 Headache, unspecified
CPT/HCPCS: 36415; 80053; 80307; 81001; 85025; 87086; G0463; J7120

== ENCOUNTER 2024-08-10 14:56 | Outpatient (CLI) | payer BC, SELFPAY ==
[2024-08-10 15:13] VITALS: BMI 44.7
[2024-08-10 15:33] LABS: Microscopic, Urine URINE MICROSCOPIC (MICROSCOPIC)
[2024-08-10 15:36] LABS: Appearance,Urine CLEAR (Clear); Bilirubin,Urine Negative (Negative); Blood, Urine Negative (Negative); Color,Urine YELLOW (Yellow); Glucose,Urine (UA) Negative (Negative); Ketones,Urine Negative (Negative); Leukocyte Esterase,Urine Negative (Negative); Nitrate,Urine Negative (Negative); Protein,Urine Negative (Negative); Urobilinogen,Urine 0.2 EU/dl (0.2)
[2024-08-10 15:37] VITALS: BP 99/63; PULSE 96; RESP 18; TEMP 36.7; O2SAT 97; BMI 44.7
[2024-08-10 15:43] LABS: Bacteria,Urine Trace /lpf; RBC,Urine Occasional #/hpf (0-3); Squamous Epithelial Cell,Urine Occasional #/hpf (0-5)
[2024-08-10 15:48] LABS: Barbiturates Screen,Urine Negative ng/ml (<200)
[2024-08-10 15:49] LABS: Benzodiazepines Screen,Urine Negative ng/ml (<200)
[2024-08-10 15:50] LABS: Amphetamine/Metha Screen,Urine Negative ng/ml (<1000); Methadone Screen,Urine Negative ng/ml (<300)
[2024-08-10 15:51] LABS: Cannabinoid Screen,Urine Negative ng/ml (<50); Cocaine Screen,Urine Negative ng/ml (<300)
[2024-08-10 15:52] LABS: Opiate Screen,Urine Negative ng/ml (<300)
[2024-08-10 15:53] LABS: Phencyclidine Screen,Urine Negative ng/ml (<25)
[2024-08-10] MEDS: POTASSIUM CHLORIDE 20MEQ TAB 40 MEQ PO (16:01)
[2024-08-10 16:04] LABS: Basophils % 0.5 % (0.1-2.0); Eosinophils # 0.1 K/mm3 (0.0-0.4); Eosinophils % 0.7 % (0.1-12.0); Hematocrit 33.2 % (37.0-47.0); Hemoglobin 12.3 g/dL (12.2-16.2); Lymphocytes # 1.2 K/mm3 (0.7-4.5); Lymphocytes % 16.4 % (10-50); Mean Corpuscular HGB Conc 37.2 g/dL (31.8-35.4); Mean Corpuscular Hemoglobin 33.2 pg (27.0-31.2); Mean Corpuscular Volume 89.4 fl (81-99); Mean Platelet Volume 11.1 fl (7.4-10.4); Monocytes # 0.4 K/mm3 (0.1-1.0); Monocytes % 4.8 % (1.7-9.3); Neutrophils # 5.8 K/mm3 (1.8-7.8); Neutrophils % 77.6 % (37.0-80.0); Platelet Count 106 K/mm3 (142-424); Red Blood Count 3.71 M/mm3 (4.20-5.40); Red Cell Distribution Width 15.4 % (11.5-17.5); White Blood Count 7.5 K/mm3 (4.8-10.8)
[2024-08-10 16:15] LABS: Albumin Level 3.5 g/dl (3.5-5.0); Chloride 108 mmol/L (98-107); Potassium 3.6 mmoL/L (3.5-5.1); Sodium 134 mmol/L (136-145)
[2024-08-10 16:18] LABS: Alanine Aminotransferase 16 U/L (12-78); Albumin/Globulin Ratio 1.1 (1.1-1.8); Alkaline Phosphatase 101 U/L (38-126); Anion Gap 9.6 mEq/L (5-15); Aspartate Amino Transferase 20 U/L (14-36); Bilirubin,Total 0.6 mg/dl (0.2-1.3); Blood Urea Nitrogen 2 mg/dl (7-17); Calcium 9.3 mg/dl (8.4-10.2); Carbon Dioxide 20 mmol/L (22.0-30.0); Creatinine Clearance Estimated 161 mL/min (50-200); Estimated Glomerular Filt Rate 193 ml/min (>60); GFR (African American) 233 ML/MIN (>60); Globulin 3.2 g/dL (1.3-3.2); Glucose 88 mg/dl (74-100); Magnesium 1.6 mg/dl (1.6-2.3); Total Protein,Serum 6.7 g/dl (6.3-8.2)
[2024-08-10 16:25] LABS: Lactate Dehydrogenase 141 U/L (313-618)
== END 2024-08-10 17:00 | disposition home or self-care (01) ==
LOC: OBOUT 14:57 → OB 14:58
PROVIDERS: PCP Family Medicine; Visit Provider Obstetrics & Gynecology
DX: O26.893 Other specified pregnancy related conditions, third trimester (principal); Z3A.38 38 weeks gestation of pregnancy; O99.113 Other diseases of the blood and blood-forming organs and certain disorders involving the immune mechanism complicating pregnancy, third trimester; D69.6 Thrombocytopenia, unspecified
CPT/HCPCS: 80053; 80307; 81001; 83615; 83735; 85025; G0463

== ENCOUNTER 2024-08-13 17:04 | Inpatient (IN) | payer BC, SELFPAY ==
[2024-08-13 15:10] VITALS: BMI 45.3
[2024-08-13 15:22] LABS: Microscopic, Urine URINE MICROSCOPIC (MICROSCOPIC)
[2024-08-13 15:28] LABS: Appearance,Urine CLEAR (Clear); Bilirubin,Urine Negative (Negative); Blood, Urine Negative (Negative); Color,Urine YELLOW (Yellow); Glucose,Urine (UA) Negative (Negative); Ketones,Urine Negative (Negative); Leukocyte Esterase,Urine Negative (Negative); Nitrate,Urine Negative (Negative); PH,Urine 6.5 (5.0-8.5); Protein,Urine Negative (Negative); Urobilinogen,Urine 0.2 EU/dl (0.2)
[2024-08-13 15:36] VITALS: BP 92/64; PULSE 88; RESP 17; TEMP 36.8; O2SAT 98; BMI 45.3
[2024-08-13 15:41] LABS: Amphetamine/Metha Screen,Urine Negative ng/ml (<1000)
[2024-08-13 15:42] LABS: Barbiturates Screen,Urine Negative ng/ml (<200); Benzodiazepines Screen,Urine Negative ng/ml (<200)
[2024-08-13 15:43] LABS: Cannabinoid Screen,Urine Negative ng/ml (<50); Cocaine Screen,Urine Negative ng/ml (<300)
[2024-08-13 15:44] LABS: Methadone Screen,Urine Negative ng/ml (<300)
[2024-08-13 15:45] LABS: Opiate Screen,Urine Negative ng/ml (<300); Phencyclidine Screen,Urine Negative ng/ml (<25)
[2024-08-13 15:47] LABS: Bacteria,Urine 1+ /lpf; Calcium Oxalate Crystals,Urine 1+ /lpf; WBC,Urine Occasional #/hpf (0-3)
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
[2024-08-13 17:52] LABS: Basophils # 0.1 K/mm3 (0-0.2); Basophils % 0.5 % (0.1-2.0); Eosinophils # 0.1 K/mm3 (0.0-0.4); Eosinophils % 0.5 % (0.1-12.0); Hematocrit 35.9 % (37.0-47.0); Hemoglobin 12.6 g/dL (12.2-16.2); Lymphocytes # 1.7 K/mm3 (0.7-4.5); Lymphocytes % 18.8 % (10-50); Mean Corpuscular HGB Conc 35.3 g/dL (31.8-35.4); Mean Corpuscular Hemoglobin 31.2 pg (27.0-31.2); Mean Corpuscular Volume 88.4 fl (81-99); Mean Platelet Volume 10.7 fl (7.4-10.4); Monocytes # 0.4 K/mm3 (0.1-1.0); Monocytes % 4.4 % (1.7-9.3); Neutrophils % 75.8 % (37.0-80.0); Platelet Count 106 K/mm3 (142-424); Red Blood Count 4.06 M/mm3 (4.20-5.40); Red Cell Distribution Width 15.3 % (11.5-17.5); White Blood Count 9.3 K/mm3 (4.8-10.8)
[2024-08-13 18:12] LABS: Albumin Level 3.5 g/dl (3.5-5.0); Chloride 107 mmol/L (98-107); Potassium 3.7 mmoL/L (3.5-5.1); Sodium 136 mmol/L (136-145)
[2024-08-13 18:15] LABS: Alanine Aminotransferase 12 U/L (12-78); Albumin/Globulin Ratio 1.2 (1.1-1.8); Alkaline Phosphatase 124 U/L (38-126); Anion Gap 13.7 mEq/L (5-15); Aspartate Amino Transferase 23 U/L (14-36); Bilirubin,Total 0.7 mg/dl (0.2-1.3); Blood Urea Nitrogen 5 mg/dl (7-17); Carbon Dioxide 19 mmol/L (22.0-30.0); Creatinine Clearance Estimated 129 mL/min (50-200); Estimated Glomerular Filt Rate 149 ml/min (>60); GFR (African American) 180 ML/MIN (>60); Globulin 2.9 g/dL (1.3-3.2); Total Protein,Serum 6.4 g/dl (6.3-8.2)
[2024-08-13 18:16] LABS: Calcium 9.4 mg/dl (8.4-10.2); Glucose 70 mg/dl (74-100)
[2024-08-13] MEDS: miSOPROStol 100MCG TABLET 25 MCG VG ×2 (18:36→23:07)
[2024-08-13] MEDS: CITRIC ACID/SODIUM CITRATE ORAL SOLN 30ML UDC 30 ML PO (20:00)
[2024-08-13] MEDS: BUTORPHANOL TARTRATE 1 MG/ML VIAL IV (23:49)
[2024-08-14] MEDS: BUTORPHANOL TARTRATE 1 MG/ML VIAL IV ×3 (02:21→07:46)
[2024-08-14] MEDS: miSOPROStol 100MCG TABLET 25 MCG VG (04:18)
[2024-08-14] MEDS: LACTATED RINGERS 1000ML 1,000 ML 500 ML IV (07:45)
[2024-08-14] MEDS: DEXTROSE 5%-LACTATED RINGERS 1,000 ML 125 ML IV (07:46)
[2024-08-14 07:51] VITALS: BP 118/70; PULSE 83; RESP 19; TEMP 36.8; O2SAT 96
--- NOTE | 2024-08-14 08:28 | EXP.LABOR.NO ---
Labor Note Subjective: Date: 08/14/24 Time: 08:28 irregular contractions Comment:: Doing well. 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
[2024-08-14] MEDS: OXYTOCIN/RINGERS LACTATE 30 UNITS/500 ML BAG IV (08:36)
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
[2024-08-14] MEDS: OXYTOCIN/RINGERS LACTATE 30 UNITS/500 ML BAG 999 UNITS IV (10:35)
[2024-08-14] MEDS: OXYTOCIN/RINGERS LACTATE 30 UNITS/500 ML BAG 40 UNITS IV (10:36)
[2024-08-14 10:42] LABS: Cord Blood PH 7.28 (7.35-7.45)
--- NOTE | 2024-08-14 10:42 | PC.NURSE ---
Critical arterial Ph 7.17 called from Eleuterio Liao.
[2024-08-14 10:45] LABS: Cord Blood PH 7.17 (7.35-7.45)
--- NOTE | 2024-08-14 10:51 | EXP.DN ---
Delivery Note Delivery Date:: 08/14/24 Delivery Time:: 10:26 Anesthesia Type: Epidural Was labor medically induced?: Yes Induction method: per misoprostol protocol Gestational age (weeks): 38 Infant delivered prior to 39 weeks?: Yes Justification for early elective delivery:: Decreased Movements and Other ([facility] recommendations) Infant Gender: Male at 1 minute: 8 at 5 minutes: 9 Delivery Procedure:: Preoperative diagnosis: 1. at 38.4 completed this weeks gestation, vertex 2. Decreased movement 3. Chronic Hypertension 4. Parvovirus B19 infection at 14 weeks gestation 5. Gestational Thrombocytopenia 6. Obesity Postoperative diagnosis: 1. at 38.4 completed this weeks gestation, vertex 2. Decreased movement 3. Chronic Hypertension 4. Parvovirus B19 infection at 14 weeks gestation 5. Gestational Thrombocytopenia 6. Obesity EBL: 150mL Specimen: 1. Cord blood 2. Arterial and venous cord gases 3. Placenta 4. Live viable male Findings: 1. Liveborn viable male infant: Zac. Apgars 8/9 at 1 and 5 minutes respectively. Weight pending at time of dictation 2. Periclitoral laceration Complications: None Procedure: Nonoperative spontaneous vaginal delivery Jillian Cisneros is a 28-year-old -0-1-2 who presented to labor and delivery today at 38 weeks and 4 days gestation with decreased movement and irregular contractions. She has several complications with this , listed above. Decision was made to admit the patient and began Cytotec cervical ripening. She received 3 doses of Cytotec and tolerated that well. Patient had spontaneous rupture of membranes revealing clear fluid. She received an epidural for anesthesia. Pitocin was started, but only briefly and then discontinued, secondary to the patient making contractions and cervical change on her own. She progressed to complete. Patient was placed in the dorsal lithotomy position using stirrups and with 1 contraction and maternal expulsive effort there was a nonoperative spontaneous vaginal delivery at 1026. There was no nuchal cord. The anterior left shoulder delivered, followed by the posterior shoulder without dystocia. The body and lower extremities delivered without difficulty. The was bulb suctioned and was crying immediately following delivery. The was placed on the maternal abdomen and greater than one minute was appreciated for delayed cord clamping. The umbilical cord was doubly clamped and cut. Cord blood and cord gasses were collected and sent for routine testing. The placenta delivered with cord traction and suprapubic contertraction. Pitocin was started. The uterus was firm and bleeding was minimal. The perineum, vaginal hassan, cervix, and paraurethral area were inspected thoroughly. There was a periclitoral laceration, that was repaired with 2 simple interrupted stitches using 4-0 Monocryl. The laceration was hemostatic. The cervix and vaginal hassan were inspected and noted to be hemostatic. This concluded the delivery. The patient was counseled regarding the events of the delivery and repair. The patient tolerated the delivery well. All counts were correct by nursing. Mother and were doing well and bonding upon my leaving the delivery room. Placental Delivery Description: Spontaneous
--- NOTE | 2024-08-14 11:01 | HMH.PHAINT1 ---
Pharmacy Intervention Comments: MEDICATION RECONCILIATION COMPLETE USING MOST RECENT OB OFFICE VISIT NOTE.
[2024-08-14] MEDS: ACETAMINOPHEN 500MG TAB 1000 MG PO (16:16)
[2024-08-14] MEDS: PRENATAL MULTIVITAMIN W/IRON 1 EACH PO (16:16)
[2024-08-15] MEDS: IBUPROFEN 400 MG TABLET 800 MG PO (05:08)
[2024-08-15] MEDS: ACETAMINOPHEN 500MG TAB 1000 MG PO ×2 (05:08→19:23)
[2024-08-15] MEDS: PROMETHAZINE 25MG TABLET 25 MG PO (05:09)
[2024-08-15 07:00] LABS: Basophils % 0.3 % (0.1-2.0); Eosinophils # 0.1 K/mm3 (0.0-0.4); Hematocrit 35.3 % (37.0-47.0); Hemoglobin 12.4 g/dL (12.2-16.2); Lymphocytes # 1.4 K/mm3 (0.7-4.5); Lymphocytes % 18.1 % (10-50); Mean Corpuscular HGB Conc 35.1 g/dL (31.8-35.4); Mean Corpuscular Hemoglobin 31.1 pg (27.0-31.2); Mean Corpuscular Volume 88.5 fl (81-99); Mean Platelet Volume 10.8 fl (7.4-10.4); Monocytes # 0.3 K/mm3 (0.1-1.0); Monocytes % 4.1 % (1.7-9.3); Neutrophils # 6.1 K/mm3 (1.8-7.8); Neutrophils % 76.6 % (37.0-80.0); Platelet Count 115 K/mm3 (142-424); Red Blood Count 3.99 M/mm3 (4.20-5.40); Red Cell Distribution Width 15.4 % (11.5-17.5)
[2024-08-15 07:07] LABS: Albumin Level 3.2 g/dl (3.5-5.0); Chloride 109 mmol/L (98-107); Potassium 3.8 mmoL/L (3.5-5.1); Sodium 137 mmol/L (136-145)
[2024-08-15 07:10] LABS: Alanine Aminotransferase 15 U/L (12-78); Albumin/Globulin Ratio 1.1 (1.1-1.8); Alkaline Phosphatase 102 U/L (38-126); Anion Gap 9.8 mEq/L (5-15); Aspartate Amino Transferase 30 U/L (14-36); Bilirubin,Total 0.5 mg/dl (0.2-1.3); Blood Urea Nitrogen 4 mg/dl (7-17); Carbon Dioxide 22 mmol/L (22.0-30.0); Creatinine Clearance Estimated 129 mL/min (50-200); Estimated Glomerular Filt Rate 149 ml/min (>60); GFR (African American) 180 ML/MIN (>60); Globulin 2.9 g/dL (1.3-3.2); Total Protein,Serum 6.1 g/dl (6.3-8.2)
[2024-08-15 07:11] LABS: Calcium 9.1 mg/dl (8.4-10.2); Glucose 92 mg/dl (74-100)
[2024-08-15 08:04] VITALS: BP 117/58; PULSE 69; RESP 16; TEMP 36.9; O2SAT 97
[2024-08-15 08:29] LABS: Rapid Plasma Reagin Ab Titer Non Reactive titer (NonRea<1:1)
[2024-08-15 08:47] LABS: Magnesium 1.7 mg/dl (1.6-2.3)
[2024-08-15] MEDS: SENNA 8.6MG TABLET 8.6 MG PO (12:15)
[2024-08-15 15:37] VITALS: BP 116/66; PULSE 84; RESP 18; TEMP 36.6; O2SAT 97
--- NOTE | 2024-08-15 17:12 | P.PN_ITS ---
Subjective *Date: 08/15/24 *Time: 17:12 Interval history: Jillian Cisneros is a G3, P2013 day #1 following a normal spontaneous vaginal delivery at 38 weeks and 4 days gestation. Routine delivery and course. She is doing well and sitting up in bed this afternoon. -Reports pain is well-controlled -Reports she is tolerating p.o. without nausea or vomiting. -Reports her lochia is scant. -She is breast-feeding her male infant -Ambulating, voiding difficulty or dysuria. Denies chest pain shortness of breath or pain in her legs. No further complaints at this time. Exam Data for Last 24 hours Vital signs and Labs for Last 24 Hours: Temp Pulse Resp BP Pulse Ox O2 Del Method 97.9 F 84 18 116/66 97 Room Air 08/15/24 15:37 08/15/24 15:37 08/15/24 15:37 08/15/24 15:37 08/15/24 15:37 08/15/24 15:37 Laboratory Results - last 24 hr 08/13/24 17:30: RPR Titer Non reactive 08/15/24 06:51: WBC 8.0, RBC 3.99 L, Hgb 12.4, Hct 35.3 L, MCV 88.5, MCH 31.1, MCHC 35.1, RDW 15.4, Plt Count 115 L, MPV 10.8 H, Neut % (Auto) 76.6, Lymph % (Auto) 18.1, Angelina % (Auto) 4.1, Eos % (Auto) 1.0, Baso % (Auto) 0.3, Neut # (Auto) 6.1, Lymph # (Auto) 1.4, Angelina # (Auto) 0.3, Eos # (Auto) 0.1, Baso # (Auto) 0.0, Sodium 137, Potassium 3.8, Chloride 109 H, Carbon Dioxide 22, Anion Gap 9.8, BUN 4 L, Creatinine 0.50 L, Estimated Creat Clear 129, Estimated GFR 149, Est GFR ( Amer) 180, Glucose 92, Calcium 9.1, Magnesium 1.7, Total Bilirubin 0.5, AST 30 D, ALT 15, Alkaline Phosphatase 102, Total Protein 6.1 L, Albumin 3.2 L, Globulin 2.9, Albumin/Globulin Ratio 1.1 I & O for Last 24 hours: Intake & Output 08/12/24 08/13/24 08/14/24 08/15/24 23:59 23:59 23:59 23:59 Weight 240 lb Narrative: General: patient is alert oriented in no acute distress and responds appropriately to questions. Appears to be in minimal pain. HEENT: NCAT, EOMI, moist mucous membranes, neck supple with full ROM Cardiovascular: RRR +S1/S2, no murmurs or rubs Pulmonary: Clear to auscultation bilaterally, nonlabored breathing, symmetric chest rise Abdominal: Fundus below the umbilicus, firm, and tenderness appropriate for the period. Extremities: trace edema, no tenderness or cyanosis noted Skin: Normal turgor, intact, warm. Negative for erythema, pallor, petechia, or lesions Neurologic: Negative for sensory or motor deficit Psychiatric: Normal affect, normal thought process, good judgment and insight, no depression or anxious mood appreciated. Assessment and Plan *Assessment and plan (1) Maternal obesity, antepartum: Status: Acute Category: Medical Code(s): O99.210 - Obesity complicating , unspecified trimester (2) Gestational thrombocytopenia without hemorrhage: Status: Acute Category: Medical Code(s): O99.119 - Other diseases of the blood and blood-forming organs and certain disor ders involving the immune mechanism complicating , unspecified trimester; D69.6 - Thrombocytopenia, unspecified (3) Parvovirus B19 infection complicating : Status: Acute Category: Medical Code(s): O98.519 - Other viral diseases complicating , unspecified trimester; B34.3 - Parvovirus infection, unspecified (4) Chronic hypertension affecting : Status: Acute Category: Medical Code(s): O10.919 - Unspecified pre-existing hypertension complicating , unspecified trimester (5) Hypokalemia: Status: Acute Category: Medical Code(s): E87.6 - Hypokalemia (6) Hypomagnesemia: Status: Acute Category: Medical Code(s): E83.42 - Hypomagnesemia (7) (normal spontaneous vaginal delivery): Status: Acute Category: Medical Code(s): O80 - Encounter for full-term uncomplicated delivery Plan Stable. PPD#1 s/p -Doing well. VSS. Serial lochia and fundal checks. -Continue with perineal ice packs for discomfort -Hemoglobin: 12.6--> 12.4 -AB+/antibody negative -, male -Desires circumcision -Follow-up 2 weeks for routine visit -Dispo: home tomorrow pending mother/infant status #Chronic Hypertension -Continue metoprolol 25 mg daily and monitor closely. This was a medication she was taking prepregnancy -Well controlled #Gestational Thrombocytopenia -Most recent platelet count was 106 on 08/10/2024. Prior to that it was 90 on 08/07/2024. -Repeat this morning was 115 #Obesity -Current BMI: 45.5. Complicates all aspects of care #HypoKalemia -3.8 this morning -40mEq ordered to be replaced today #Hypomagnesiumia -1.7 this morning -2gm ordered to be replaced today
[2024-08-15] MEDS: MAGNESIUM SULFATE IN WATER 2 GM/50 ML PIGGYBACK IV (18:12)
[2024-08-15] MEDS: POTASSIUM CHLORIDE 20MEQ TAB 40 MEQ PO (18:12)
[2024-08-15 21:10] VITALS: BP 118/72; PULSE 68; RESP 17; TEMP 36.6; O2SAT 97
[2024-08-16] MEDS: IBUPROFEN 400 MG TABLET 800 MG PO (04:38)
[2024-08-16] MEDS: SENNA 8.6MG TABLET 8.6 MG PO (04:44)
[2024-08-16 04:46] VITALS: BP 120/61; PULSE 86; RESP 15; TEMP 36.6; O2SAT 97
--- NOTE | 2024-08-16 08:56 | EXP.DC.SUM ---
General Admission date:: 08/13/24 Discharge date: 08/16/24 HPI HPI HPI: Jillian Cisneros is a 28-year-old -0-1-2 who presented to labor and delivery today at 38 weeks and 4 days gestation with decreased movement and contractions. -Her has been complicated by parvo B19 infection at 14 weeks gestation, chronic hypertension, gestational thrombocytopenia, obesity, obstructive sleep apnea, sciatica, and back pain. After extensive counseling and review of [facility] notes which recommend delivery with a low threshold at 37 weeks gestation decision was made to proceed with induction today AB+, antibody negative, rubella immune, hepatitis B negative, hepatitis C negative, RPR negative, HIV negative 1 hour GTT: 132 GBS negative Hospital Course Hospital Course Hospital Course: Decision was made to admit the patient and began Cytotec cervical ripening. She received 3 doses of Cytotec and tolerated that well. Patient had spontaneous rupture of membranes revealing clear fluid. She received an epidural for anesthesia. Pitocin was started, but only briefly and then discontinued, secondary to the patient making contractions and cervical change on her own. She progressed to complete. Patient was placed in the dorsal lithotomy position using stirrups and with 1 contraction and maternal expulsive effort there was a nonoperative spontaneous vaginal delivery at 1026. There was no nuchal cord. The anterior left shoulder delivered, followed by the posterior shoulder without dystocia. The body and lower extremities delivered without difficulty. The was bulb suctioned and was crying immediately following delivery. The infant was placed on the maternal abdomen and greater than one minute was appreciated for delayed cord clamping. The umbilical cord was doubly clamped and cut. Cord blood and cord gasses were collected and sent for routine testing. The placenta delivered with cord traction and suprapubic contertraction. Pitocin was started. The uterus was firm and bleeding was minimal. The perineum, vaginal hassan, cervix, and paraurethral area were inspected thoroughly. There was a periclitoral laceration, that was repaired with 2 simple interrupted stitches using 4-0 Monocryl. The laceration was hemostatic. The cervix and vaginal hassan were inspected and noted to be hemostatic. Baby was a liveborn male child weighing 7 pounds 10 ounces and 19 and three-quarter inches long. He had Apgars of 8 at 1 minute and 9 at 5 minutes. She has done well and has remained afebrile with her hospitalization. She is eating and drinking and ambulating. Her lochia is normal. She will be discharged home today to follow-up with Dr. Fournier in approximately 2 weeks time. She will continue with her vitamins and iron. She has not been taking her antihypertensives and she will monitor her blood pressure at home. She would like to have a bilateral salpingectomy. She was given the usual instructions with respect to limiting her activity, driving and sexual activity. Her condition on discharge is stable and improved. Exam Data for Last 24 hours Vital signs and Labs for Last 24 Hours: Temp Pulse Resp BP Pulse Ox O2 Del Method 97.9 F 86 15 120/61 97 Room Air 08/16/24 04:46 08/16/24 04:46 08/16/24 04:46 08/16/24 04:46 08/16/24 04:46 08/16/24 04:46 I & O for Last 24 hours: Intake & Output 08/13/24 08/14/24 08/15/24 08/16/24 11:59 11:59 11:59 11:59 Weight 240 lb DS: Diagnosis Discharge Diagnosis (1) Maternal obesity, antepartum: Status: Acute Code(s): O99.210 - Obesity complicating , unspecified trimester (2) Gestational thrombocytopenia without hemorrhage: Status: Acute Code(s): O99.119 - Other diseases of the blood and blood-forming organs and certain disorders involving the immune mechanism complicating , unspecified trimester; D69.6 - Thrombocytopenia, unspecified Qualifiers: Trimester: third trimester Qualified Code(s): O99.113 - Other diseases of the blood and blood-forming organs and certain disorders involving the immune mechanism complicating , third trimester; D69.6 - Thrombocytopenia, unspecified (3) Parvovirus B19 infection complicating : Status: Acute Code(s): O98.519 - Other viral diseases complicating , unspecified trimester; B34.3 - Parvovirus infection, unspecified (4) Chronic hypertension affecting : Status: Acute Code(s): O10.919 - Unspecified pre-existing hypertension complicating , unspecified trimester (5) Hypokalemia: Status: Acute Code(s): E87.6 - Hypokalemia (6) Hypomagnesemia: Status: Acute Code(s): E83.42 - Hypomagnesemia (7) (normal spontaneous vaginal delivery): Status: Acute Code(s): O80 - Encounter for full-term uncomplicated delivery Meds Home Medications and Allergies Home Medications ?Medication ?Instructions ?Recorded ?Confirmed ?Type aspirin 81 mg tablet,delayed 81 mg PO DAILY 04/01/24 08/14/24 History release famotidine 10 mg tablet (Pepcid AC) 10 mg PO DAILY 04/01/24 08/14/24 History vit no.133-ferrous 1 tab PO DAILY 04/22/24 08/14/24 History fumarate 28 mg-folic acid 800 mcg tablet () ferrous sulfate 325 mg (65 mg 325 mg PO Q2D 07/07/24 08/14/24 History iron) tablet evening primrose oil-linoleic 1 cap PO TID 07/23/24 08/14/24 History acid-gamolenic acid 1,000 mg capsule New Prescriptions to Start Prescriptions: Allergies Allergy/AdvReac Type Severity Reaction Status Date / Time No Known Allergies Allergy Verified 08/13/24 08:18 Discharge Plan Disposition Patient Disposition: Home, Self-Care Discharge Order Discharge Orders: Discharge Order (Routine); Ordered 08/16/24 Ordered By: Itz Lamb Follow up Plan Follow up with: Ame Fournier DO [Staff Physician] - Enter time for follow up Prescriptions/Medication Reconciliation: Continued ferrous sulfate 325 mg (65 mg iron) tablet 325 mg PO Q2D trung okhi-esaftddg-enptodtie ac 1,000 mg capsule 1 cap PO TID Rx Instructions: administer with meals famotidine [Pepcid AC] 10 mg tablet 10 mg PO DAILY aspirin 81 mg tablet,delayed release (DR/EC) 81 mg PO DAILY 28-800 mg-mcg tablet 1 tab PO DAILY Patient Comments: TAKE 1 TABLET BY MOUTH ONCE DAILY Problem Reconciliation Problems Reviewed?: Yes Patient Discharge Instructions ACTIVITY: No heavy lifting DIET: continue same diet Patient Instructions: Depression, Hemorrhage, DI for Labor and Delivery, Vaginal , DI for Pre-eclampsia, [facility] Post Discharge Instructions Print Language: Vincentian Providers Primary Care Provider: Johnathan Duenas Admit Provider: Ame Fournier Attending Provider: Ame Fournier
[2024-08-16 09:14] VITALS: BP 117/66; PULSE 80; RESP 16; TEMP 36.9; O2SAT 97
== END 2024-08-16 12:20 | disposition home or self-care (01) | DRG 768 ==
LOC: OBOUT 17:05 → OB 17:05
PROVIDERS: Admitting Provider Obstetrics & Gynecology; PCP Family Medicine; Visit Provider Obstetrics & Gynecology
DX: O36.8130 Decreased fetal movements, third trimester, not applicable or unspecified (principal); Z37.0 Single live birth; O10.02 Pre-existing essential hypertension complicating childbirth; O99.12 Other diseases of the blood and blood-forming organs and certain disorders involving the immune mechanism complicating childbirth; O98.52 Other viral diseases complicating childbirth; B34.3 Parvovirus infection, unspecified; Z3A.38 38 weeks gestation of pregnancy; D69.6 Thrombocytopenia, unspecified; O99.214 Obesity complicating childbirth; E66.89 Other obesity not elsewhere classified
CPT/HCPCS: 36415; 59025; 80053; 80307; 81001; 82800; 83735; 85025; 86593; 86850; 94761; G0283; J0595; J3010; J3475; J7120

== ENCOUNTER 2024-09-22 11:14 | Outpatient (CLI) | payer BC, SELFPAY ==
[2024-09-22 11:47] LABS: Basophils # 0.2 K/mm3 (0-0.2); Basophils % 2.2 % (0.1-2.0); Eosinophils # 0.1 K/mm3 (0.0-0.4); Eosinophils % 1.2 % (0.1-12.0); Hematocrit 40.9 % (37.0-47.0); Hemoglobin 14.2 g/dL (12.2-16.2); Lymphocytes # 1.5 K/mm3 (0.7-4.5); Lymphocytes % 22.6 % (10-50); Mean Corpuscular HGB Conc 34.8 g/dL (31.8-35.4); Mean Corpuscular Hemoglobin 30.5 pg (27.0-31.2); Mean Corpuscular Volume 87.5 fl (81-99); Mean Platelet Volume 8.5 fl (7.4-10.4); Monocytes # 0.3 K/mm3 (0.1-1.0); Monocytes % 4.3 % (1.7-9.3); Neutrophils # 4.7 K/mm3 (1.8-7.8); Neutrophils % 69.7 % (37.0-80.0); Platelet Count 184 K/mm3 (142-424); Red Blood Count 4.68 M/mm3 (4.20-5.40); Red Cell Distribution Width 14.2 % (11.5-17.5); White Blood Count 6.8 K/mm3 (4.8-10.8)
== END 2024-09-22 23:59 | disposition home or self-care (01) ==
LOC: LAB 11:15
PROVIDERS: PCP Family Medicine; Visit Provider Obstetrics & Gynecology
DX: R53.83 Other fatigue (principal); N39.0 Urinary tract infection, site not specified
CPT/HCPCS: 36415; 85025; 87086

== ENCOUNTER 2024-10-07 07:21 | Outpatient (CLI) | payer BC, SELFPAY ==
--- NOTE | 2024-10-07 07:22 | CT_ITS ---
APPROVED REPORT Patient Care Secretary: CLINICAL INDICATION Chest Pain TECHNIQUE Image Acquisition: A 128 slice MDCT scanner ([employer] View) was used for data acquisition. A noncontrast coronary calcium scan was performed. A CT attenuation threshold of 130 Hounsfield units (HU) was used for the detection of calcium in contiguous voxels of 1 sq mm in area to be counted as individual lesions. Bolus tracking in the ascending aorta with a threshold of 180 HU was performed. Immediately afterwards, ECG synchronized cardiac CT was then performed from the cardiac base to apex using retrospective gating with ECG tube current modulation. A total of 85 mL of Isovue 370 mg/mL contrast medium was administered at 5 mL/sec followed by a saline flush using a biphasic injection protocol. A tube voltage of 120 KVp was used. The average heart rate at the time of acquisition was 57 bpm and regular. Image Reconstruction Transaxial images were reconstructed at 0.67 mm slide thickness. Data was reviewed interactively on an advanced workstation capable of 2 and 3-dimensional displays in all conventional reconstruction formats, including multiplanar reformations, maximum intensity projections, curved multiplanar reformations, and volume rendered reconstructions. When applicable, selected routine images describing the relevant coronary anatomy and pathology were saved and sent to PACS. Complications None Technical Quality Overall image quality was good. Coronary artery opacification was adequate. Total DLP (Dose-Length Product) is 1920.2 mGy-cm. The reported value represents the total of one or more individual components during the CT acquisition of this date and at this time, and as such, the same value may appear in more than one CT report depending on the interpreting/reporting physicians. COMPARISON None FINDINGS CT Coronary Calcium Scoring LMA (Left Main Artery) = 0 LAD (Left Anterior Descending) = 0 LCX (Left Coronary Circumflex) = 0 RCA (Right Coronary Artery) = 0 Total Calcium Score = 0 using the AJ-130 method. The interpretation of the calcium heart score is based on the following continuum*: 0 = no calcified plaque detected (risk of coronary artery disease is very low ??? less than 5%) 1-10 = calcium detected in extremely minimal levels (risk of coronary diseases is still low ??? less than 10%) 11-100 = mild levels of plaque detected with certainty (mild or minimal narrowing of heart arteries is likely) 101-400 = definite,at least moderate levels of plaque detected (relatively high risk of a heart attack within 3-5 years) >401-999 = extensive levels of plaque detected (high risk of heart attack, high levels of vascular disease are present, high likelihood of at least one significant coronary narrowing) *The calcium heart score quantifies the burden of coronary calcification/plaque in the coronary arteries. The calcium heart score is not able to evaluate the presence or burden of non-calcified (i.e. soft) plaque. There is no identifiable calcification in the aortic valve, mitral annulus or mitral valve, pericardium, or myocardium. Coronary CT Angiography The coronary arterial system is right dominant. Quantitative Stenosis Grading: Left Main (LM): The left main originates normally from the left sinus of Valsalva. The LM bifurcates into the left anterior descending artery and left circumflex artery. The LM is patent with no evidence of atherosclerosis. Left Anterior Descending (LAD) and Diagonal Branches: The LAD gives off 3 diagonal branch(es). The LAD and its branches are patent with no evidence of atherosclerosis. There is no evidence of LAD-myocardial bridge. Left Circumflex (LCX) and Obtuse Marginals (OM): The LCX gives off 1 Obtuse Marginal (OM) branch(es). The LCX and its branches are patent with no evidence of atherosclerosis. Right Coronary Artery (RCA): The RCA originates normally from the right sinus of Valsalva. The RCA gives off a posterior descending artery (PDA) and posterolateral (PL) branches. The RCA and its branches are patent with no evidence of atherosclerosis. Non-Coronary Cardiac Findings: Analysis of the left ventricular (LV) structure and function was performed after 3-D reconstruction of the LV from axial images, with user-corrected automatic contouring for assessment of LV volumes and user-defined reconstruction from oblique planes for measurement of 3-D cardiac structure and function. -The left ventricle systolic function is normal. -There is no left atrial appendage filling defect. Two right pulmonary veins and two left pulmonary veins drain normally into the left atrium. -No pericardial thickening or calcification. -Central and branch pulmonary arteries in the amkwg-of-bfnd are unremarkable. -Thoracic aorta within the visualized thoracic aortic-branches in the afcyg-cf-kleo is unremarkable. Extracardiac Structures No significant extra-cardiac findings. Note, however, that this study is focused on the cardiac findings. IMPRESSION -No coronary calcification with an Agatston score = 0 using the AJ-130 method. -No evidence of significant flow-limiting atherosclerosis of the coronary arteries. -No evidence of coronary anomalies or myocardial bridges. -CAD-RADS 0. Management recommendations per ACC/AHA guidelines*, as clinically appropriate. *Recommendations: CAD RADS 0: Reassurance. Consider non-atherosclerotic causes of chest pain. CAD RADS 1: Consider non-atherosclerotic causes of chest pain. Consider preventive therapy and risk factor modification. CAD RADS 2: Consider non-atherosclerotic causes of chest pain. Consider preventive therapy and risk factor modification, particularly for patients with nonobstructive plaque in multiple segments. CAD RADS 3: Consider further functional testing. Consider symptom-guided anti-ischemic and preventive pharmacotherapy as well as risk factor modification per published guideline statements. CAD RADS 4A: Consider further functional testing or invasive coronary angiography with revascularization per published guideline statements. Consider symptom-guided anti-ischemic and preventive pharmacotherapy as well as risk factor modification per published guideline statements. CAD RADS 4B: Invasive coronary angiography recommended with revascularization per published guideline statements. Consider symptom-guided anti-ischemic and preventive pharmacotherapy as well as risk factor modification per published guideline statements. CAD RADS 5: Consider invasive angiography and/or viability assessment with revascularization per published guideline statements. Consider symptom-guided anti-ischemic and preventive pharmacotherapy as well as risk factor modification per published guideline statements. CRITICAL RESULT None COMMUNICATION Per this written report The coronary and cardiac findings of this CCTA were reviewed, reported, and signed by Joseph Call MD (Tobacco Weigher) Conclusion Electronically signed by : Lalitha Call MD 10/08/2024 00:23:15
[2024-10-07 07:50] VITALS: BMI 41.1
[2024-10-07 08:00] VITALS: BP 120/69; PULSE 72; RESP 18; O2SAT 99
[2024-10-07 08:23] LABS: Chloride 107 mmol/L (98-107); Sodium 137 mmol/L (136-145); Urine Pregnancy, HCG Qual. Negative (Negative)
[2024-10-07 08:26] LABS: Blood Urea Nitrogen 13 mg/dl (7-17); Creatinine Clearance Estimated 188 mL/min (50-200); Estimated Glomerular Filt Rate 100 ml/min (>60); GFR (African American) 121 ML/MIN (>60)
[2024-10-07 08:27] LABS: Calcium 9.1 mg/dl (8.4-10.2); Carbon Dioxide 31 mmol/L (22.0-30.0); Glucose 81 mg/dl (74-100)
[2024-10-07 09:00] VITALS: BP 115/75; PULSE 58; RESP 16; O2SAT 98
[2024-10-07] MEDS: NITROGLYCERIN 0.4MG SL TABLET SL (09:00)
[2024-10-07 09:05] VITALS: BP 107/53; PULSE 67; RESP 17; O2SAT 96
[2024-10-07 09:10] VITALS: BP 105/56; PULSE 65; RESP 17; O2SAT 98
[2024-10-07] MEDS: IOPAMIDOL-370 (76%);100ML BOTTLE 85 ML IV (09:18)
[2024-10-07] MEDS: 0.9 % SODIUM CHLORIDE 50 ML VIAL IV (09:18)
[2024-10-07] MEDS: SODIUM CHLORIDE 0.9% 10ML SYR (RAD ONLY) 10 ML IV (09:18)
== END 2024-10-07 09:15 | disposition home or self-care (01) ==
LOC: RAD 07:22
PROVIDERS: PCP Family Medicine; Visit Provider Nurse Practitioner Family
DX: R94.30 Abnormal result of cardiovascular function study, unspecified (principal); R79.89 Other specified abnormal findings of blood chemistry; R00.2 Palpitations; R06.00 Dyspnea, unspecified; R94.31 Abnormal electrocardiogram [ECG] [EKG]; I10 Essential (primary) hypertension
CPT/HCPCS: 75574; 80048; 81025; Q9967

== ENCOUNTER 2024-10-22 09:58 | Outpatient (CLI) | payer BC, SELFPAY ==
[2024-10-22 10:11] VITALS: BMI 41.1
[2024-10-22 10:33] LABS: Basophils % 0.3 % (0.1-2.0); Eosinophils # 0.1 K/mm3 (0.0-0.4); Eosinophils % 1.6 % (0.1-12.0); Hematocrit 38.1 % (37.0-47.0); Hemoglobin 12.9 g/dL (12.2-16.2); Lymphocytes # 1.5 K/mm3 (0.7-4.5); Lymphocytes % 25.7 % (10-50); Mean Corpuscular HGB Conc 33.9 g/dL (31.8-35.4); Mean Corpuscular Hemoglobin 29.6 pg (27.0-31.2); Mean Corpuscular Volume 87.4 fl (81-99); Mean Platelet Volume 10.8 fl (7.4-10.4); Monocytes # 0.4 K/mm3 (0.1-1.0); Monocytes % 6.6 % (1.7-9.3); Neutrophils # 3.8 K/mm3 (1.8-7.8); Neutrophils % 65.5 % (37.0-80.0); Platelet Count 200 K/mm3 (142-424); Red Blood Count 4.36 M/mm3 (4.20-5.40); White Blood Count 5.8 K/mm3 (4.8-10.8)
[2024-10-22 10:40] LABS: Chloride 105 mmol/L (98-107); Sodium 137 mmol/L (136-145)
[2024-10-22 10:43] LABS: Alanine Aminotransferase 68 U/L (12-78); Albumin/Globulin Ratio 1.5 (1.1-1.8); Alkaline Phosphatase 62 U/L (38-126); Aspartate Amino Transferase 40 U/L (14-36); Bilirubin,Total 0.7 mg/dl (0.2-1.3); Blood Urea Nitrogen 11 mg/dl (7-17); Calcium 9.3 mg/dl (8.4-10.2); Carbon Dioxide 28 mmol/L (22.0-30.0); Creatinine Clearance Estimated 188 mL/min (50-200); Estimated Glomerular Filt Rate 100 ml/min (>60); GFR (African American) 121 ML/MIN (>60); Globulin 2.7 g/dL (1.3-3.2); Glucose 83 mg/dl (74-100); Total Protein,Serum 6.7 g/dl (6.3-8.2)
[2024-10-22 11:02] LABS: HCG,Quantitative < 2 mIU/ml (0-5.42)
== END 2024-10-22 23:59 | disposition home or self-care (01) ==
LOC: PREOP 09:59
PROVIDERS: PCP Family Medicine; Visit Provider Obstetrics & Gynecology
DX: Z30.09 Encounter for other general counseling and advice on contraception (principal)
CPT/HCPCS: 80053; 84702; 85025

== ENCOUNTER 2024-10-26 05:57 | Day surgery (SDC) | payer BC, SELFPAY ==
[2024-10-21 10:40] VITALS: BMI 41.1
[2024-10-26] VITALS (9 sets, daily range): BP systolic 108–122; BP diastolic 67–85; PULSE 65–99; RESP 14–20; TEMP 36.2–38; O2SAT 94–100
[2024-10-26] MEDS: LACTATED RINGERS 1000ML 1,000 ML 25 ML IV (06:21)
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
[2024-10-26] MEDS: SCOPOLAMINE 1.5MG/72HRS PATCH 1 EACH TD (07:12)
[2024-10-26] MEDS: BUPIVACAINE 0.5% W/EPI 1:200,000 30ML VIAL 30 ML IJ ×2 (07:57→08:14)
--- NOTE | 2024-10-26 08:53 | EXP.ANES.I ---
[facility] Anesthesia Record Part I Anesthesia Record I Intake, IV Amount: 850 Hydration: Adequate Estimated blood loss (mL): 10 Urine output (mL): 30 Blood Products used (#): none Blood Pressure: 122/67 SaO2: 100 Pulse Rate: 99 Airway Patency: Patent Respiratory Rate: 16 Temperature: 97.1 F Patient is:: Awake (Talking) and Stable Stable to PACU at:: 08:52
[2024-10-26] MEDS: HYDROMORPHONE 2MG/ML SYRINGE 0.3 MG IV (09:00)
--- NOTE | 2024-10-26 09:19 | P.OP_ITS ---
Date of procedure: 10/26/24 Pre-op Diagnosis:: 1. Desires sterilization Post-op Diagnosis:: 1. Desires sterilization Procedure performed:: Laparoscopic bilateral salpingectomy Surgeon:: Ame Fournier DO Facilities Technician(s):: Mark Monk MD GEAR MACHINE OPERATOR:: Mariela Reynosoalfred Anesthesia: GETA Estimated blood loss (mL): 10 Clinical Note:: Jillian Cisneros is a 29yo who presented for laparoscopic bilateral salpingectomy. She had a normal spontaneous vaginal delivery 10 weeks ago. Her course has been complicated by anxiety and depression. She desired a tubal ligation during her and throughout her course. Alternative options were reviewed and she declined Operative findings:: 1. Bimanual examination revealed an anteverted 6-week size uterus with smooth contour without any adnexal masses. 2. Laparoscopic exam revealed normal-appearing uterus, ovaries, fallopian tubes and liver. 3. There were adhesions noted extending from the left colon to the left pelvic sidewall Operative note:: The patient was taken to the operating room where general anesthesia was obtained and noted to be adequate. SCDs were placed for thromboembolism prophylaxis and found to be working. The patient was placed in the dorsal lithotomy position using yellowfin stirrups. Timeout verified the correct patient and procedure. The patient was prepped and draped in a usual sterile fashion. A catheter was used to drain her bladder. An acorn uterine manipulator was placed and my top gloves were removed. 10mL of Lidocaine with epinepherine was injected infraumbilically and a scalpel was used to make a 5 mm infraumbilical incision with the assistance from a hemostat. The skin was tented and Optiview blunt trocar was introduced into the abdomen in the usual fashion. CO2 gas was connected with an initial pressure of 6 mmHg noted but immediately this pressure shot up to 12 to 15 mmHg. With the camera it appeared that we were still preperitoneal. Insufflation was aborted. Trocar was left in place in an attempt to enter the cavity at Jameson's point was made. Unable to achieve abdominal access at Jameson's point after 1 unsuccessful attempt. Decision made for direct open Soliman approach. Dr. Monk was called in for assistance. With the Veress needle was achieved in the upper, below gonzales um, midline, 1 successful attempt. Pneumoperitoneum was created to a pressure of 15 mmHg. The laparoscopic camera was inserted and a quick survey of the abdomen revealed grossly normal anatomy. The uterus appeared to be anteverted with a normal size shape and contour. The patient was placed in Trendelenburg. 10mLs of local anesthetic was injected and a 5mm incision was then made in the right lower quadrant with careful attention to avoid the rectus muscles and vasculature and under direct laparoscopic visualization a blunt trocar was introduced into the abdominal cavity. This process was repeated on the left side. The fallopian tubes were identified on the cornu of the uterus and followed out to the ovaries which revealed grossly appearing anatomy. A grasper was used to elevate the left fallopian tube. The Ligasure was used to grasp the fimbriated end of the fallopian tube, ensuring complete removal of the fimbriae, it was clamped, coagulated and transected. This process was repeated serially working towards the uterus to allow complete removal of the fallopian tube. Careful attention was given to transected the Mesosalpinx proximal to the fallopian tube. The fallopian tube was removed from the abdominal cavity and passed off the operative field to be sent to pathology. Hemostasis was noted. Attention was then turned to the right fallopian tube and the process was repeated. Hemostasis was noted and the tube was removed along with the trocar and handed off the operative field to be sent to pathology. Pneumoperitoneum reduced, and all ports removed. The 4 abdominal incisions were closed with 4-0 Monocryl. The small Veress needle incision was not large enough to close with a stitch and was just covered with Dermabond. Dermabond was applied to each skin incision. The Cumby uterine manipulator was removed. All counts were correct x2, per nursing. The patient was extubated, stable, and transferred to the PACU. She will be discharged after meeting all DC criteria to include voiding, ambulating and tolerating PO independently. Condition: stable Disposition: same day Specimens:: Bilateral fallopian tubes Complications:: None
[2024-10-26] MEDS: ONDANSETRON 4MG/2ML VIAL 4 MG (09:41)
[2024-10-26] MEDS: OXYCODONE 5MG W/APAP 325MG TABLET 1 EACH PO (09:56)
[2024-10-28 08:57] VITALS: BP 108/69; PULSE 76; RESP 16; TEMP 36.2; O2SAT 94
--- NOTE | 2024-10-28 08:57 | EXP.ANES.II ---
[facility] Anesthesia Record Part II Anesthesia Record Part II Discharge Time: 09:10 Destination: Surgical Day Care (OP Surgery) PACU nurse assessment reviewed?: Yes Patient Condition:: Good Anesthesia Complications:: None Swallowing reflex intact?: Yes Airway Patency: Patent Cyanosis?: No Blood Pressure: 108/69 SaO2: 94 Respiratory Rate: 16 Pulse Rate: 76 Temperature: 97.1 F Mental Status: Alert & Oriented Pain level:: 0 Nausea and/or vomitting:: None Intake, IV Amount: 850 Hydration: Adequate
== END 2024-10-26 10:10 | disposition home or self-care (01) ==
PROVIDERS: PCP Family Medicine; Visit Provider Obstetrics & Gynecology
PROC: (CPT 58661; principal; 2024-10-26 07:30)
DX: Z30.2 Encounter for sterilization (principal)
CPT/HCPCS: 58661; J1100; J1171; J1595; J1885; J2250; J2405; J3010; J7120

== ENCOUNTER 2024-10-28 18:03 | Emergency (ER) | payer BC, SELFPAY ==
[2024-10-28 18:28] VITALS: BP 113/77; PULSE 71; RESP 18; TEMP 36.9; O2SAT 100; BMI 41.7
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
[2024-10-28] MEDS: ONDANSETRON 4MG ODT 4 MG SL (19:04)
--- NOTE | 2024-10-28 19:21 | PC.NURSE ---
REPORT GIVEN TO DIXON HARRIS. UPDATED ON LABS, MEDICATION GIVEN IN UTC AND 20G IN RIGHT FA.
[2024-10-28 19:31] LABS: Basophils % 0.4 % (0.1-2.0); Eosinophils # 0.1 K/mm3 (0.0-0.4); Eosinophils % 1.1 % (0.1-12.0); Hematocrit 36.6 % (37.0-47.0); Hemoglobin 12.1 g/dL (12.2-16.2); Lymphocytes # 1.5 K/mm3 (0.7-4.5); Lymphocytes % 19.1 % (10-50); Mean Corpuscular HGB Conc 33.1 g/dL (31.8-35.4); Mean Corpuscular Hemoglobin 29.4 pg (27.0-31.2); Mean Corpuscular Volume 89.1 fl (81-99); Mean Platelet Volume 11.4 fl (7.4-10.4); Monocytes # 0.5 K/mm3 (0.1-1.0); Monocytes % 6.1 % (1.7-9.3); Neutrophils # 5.9 K/mm3 (1.8-7.8); Neutrophils % 73.1 % (37.0-80.0); Platelet Count 186 K/mm3 (142-424); Red Blood Count 4.11 M/mm3 (4.20-5.40); Red Cell Distribution Width 14.2 % (11.5-17.5)
[2024-10-28 19:41] LABS: Alanine Aminotransferase 58 U/L (12-78); Albumin/Globulin Ratio 1.4 (1.1-1.8); Alkaline Phosphatase 58 U/L (38-126); Anion Gap 9.5 mEq/L (5-15); Aspartate Amino Transferase 38 U/L (14-36); Bilirubin,Total 0.7 mg/dl (0.2-1.3); Blood Urea Nitrogen 13 mg/dl (7-17); Calcium 9.2 mg/dl (8.4-10.2); Carbon Dioxide 29 mmol/L (22.0-30.0); Chloride 105 mmol/L (98-107); Creatinine Clearance Estimated 80 mL/min (50-200); Estimated Glomerular Filt Rate 86 ml/min (>60); GFR (African American) 104 ML/MIN (>60); Globulin 2.8 g/dL (1.3-3.2); Glucose 79 mg/dl (74-100); Potassium 3.5 mmoL/L (3.5-5.1); Sodium 140 mmol/L (136-145); Total Protein,Serum 6.8 g/dl (6.3-8.2)
[2024-10-28 19:44] VITALS: BP 125/51; PULSE 63; RESP 18; TEMP 36.6; O2SAT 100; BMI 41.7
--- NOTE | 2024-10-28 20:20 | CT_ITS ---
PROCEDURE INFORMATION: Exam: CT Abdomen And Pelvis With Contrast Exam date and time: 10/28/2024 8:43 PM Age: 29 years old Clinical indication: Abdominal pain; Additional info: Abd pain S/P tubal TECHNIQUE: Imaging protocol: Computed tomography of the abdomen and pelvis with contrast. Radiation optimization: All CT scans at this facility use at least one of these dose optimization techniques: automated exposure control; mA and/or kV adjustment per patient size (includes targeted exams where dose is matched to clinical indication); or iterative reconstruction. Contrast material: ISOVUE; Contrast volume: 75 ml; Contrast route: IV; COMPARISON: CT ABDOMEN PELVIS W CON 02/24/2023 8:34 PM FINDINGS: Liver: Normal. No mass. Gallbladder and biliary ducts: Cholecystectomy. Pancreas: Normal. No ductal dilation. Spleen: Normal. No splenomegaly. Adrenal glands: Normal. No mass. Kidneys and ureters: Normal. No hydronephrosis. Stomach and bowel: Unremarkable. No obstruction. No mucosal thickening. Appendix: Appendectomy. Intraperitoneal space: Minimal free air. No significant fluid collection. Vasculature: Unremarkable. No abdominal aortic aneurysm. Lymph nodes: Unremarkable. No enlarged lymph nodes. Urinary bladder: Unremarkable as visualized. Reproductive: Unremarkable as visualized. Bones/joints: Unremarkable. No acute fracture. Soft tissues: Foci of air within the ventral abdominal wall coursing along the transversalis fascia. Mild umbilical fat stranding and subcutaneous emphysema which may be related to surgical port placement. Foci of air within the rectus sheath. IMPRESSION: 1. Minimal free air, an expected amount following recent abdominal surgery. Bowel perforation is a less likely consideration. 2. Postsurgical changes of the ventral abdominal wall.
[2024-10-28 20:40] LABS: HIV Combo NEGATIVE (Negative)
[2024-10-28] MEDS: SODIUM CHLORIDE 0.9% 10ML SYR (RAD ONLY) 10 ML IV (20:42)
[2024-10-28] MEDS: IOPAMIDOL-370 (76%);100ML BOTTLE 75 ML IV (20:44)
[2024-10-28] MEDS: ACETAMINOPHEN 1,000MG/100ML VIAL 1000 MG IV (21:18)
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
[2024-10-28 22:10] VITALS: BP 110/67; PULSE 55; RESP 18; TEMP 36.9; O2SAT 99
[2024-10-30 06:10] LABS: HCV Ab Non Reactive (Non Reactive)
== END 2024-10-28 22:10 | disposition home or self-care (01) ==
LOC: UTC 18:09 → ER 19:29
PROVIDERS: Nurse Practitioner Family; Emergency Provider Emergency Medicine; PCP Family Medicine
DX: K59.00 Constipation, unspecified (principal); G89.18 Other acute postprocedural pain; R10.9 Unspecified abdominal pain; R11.0 Nausea
CPT/HCPCS: 74177; 80053; 85025; 86803; 87389; 96374; 99285; J0131; Q0162; Q9967

== ENCOUNTER 2024-11-03 10:26 | Outpatient (CLI) | payer BC, SELFPAY ==
[2024-11-03 11:04] LABS: Albumin Level 4.1 g/dl (3.5-5.0); Chloride 106 mmol/L (98-107); Potassium 4.3 mmoL/L (3.5-5.1); Sodium 140 mmol/L (136-145)
[2024-11-03 11:06] LABS: Blood Urea Nitrogen 11 mg/dl (7-17); Estimated Glomerular Filt Rate 120 ml/min (>60); GFR (African American) 145 ML/MIN (>60)
[2024-11-03 11:07] LABS: Alanine Aminotransferase 62 U/L (12-78); Albumin/Globulin Ratio 1.5 (1.1-1.8); Alkaline Phosphatase 63 U/L (38-126); Anion Gap 10.3 mEq/L (5-15); Aspartate Amino Transferase 39 U/L (14-36); Bilirubin,Total 0.8 mg/dl (0.2-1.3); Calcium 9.3 mg/dl (8.4-10.2); Carbon Dioxide 28 mmol/L (22.0-30.0); Globulin 2.7 g/dL (1.3-3.2); Glucose 92 mg/dl (74-100); Total Protein,Serum 6.8 g/dl (6.3-8.2)
== END 2024-11-03 23:59 | disposition home or self-care (01) ==
LOC: LAB 10:27
PROVIDERS: PCP Family Medicine; Visit Provider Obstetrics & Gynecology
DX: R74.8 Abnormal levels of other serum enzymes (principal)
CPT/HCPCS: 36415; 80053

== ENCOUNTER 2024-12-01 08:32 | Outpatient (CLI) | payer BC, SELFPAY ==
[2024-12-01 09:48] LABS: Iron 92 ug/dL (37-170)
[2024-12-01 09:52] LABS: Total Iron Binding Capacity 281 ug/dL (265-497)
[2024-12-01 10:15] LABS: Thyroid Stimulating Hormone 0.91 uIU/mL (0.465-4.68)
[2024-12-01 10:33] LABS: Vitamin B12 664 pg/mL (239-931)
[2024-12-14 21:09] LABS: 1,25 Dihydroxy Vitamin D 55 pg/mL (.); 1,25-Dihydroxy, Vitamin D-2 <10 pg/mL (.); 1,25-Dihydroxy, Vitamin D-3 54 pg/mL (.)
== END 2024-12-01 23:59 | disposition home or self-care (01) ==
LOC: LAB 08:33
PROVIDERS: PCP Family Medicine; Visit Provider Physician Assistant
DX: R53.83 Other fatigue (principal); R00.0 Tachycardia, unspecified
CPT/HCPCS: 36415; 82607; 82652; 83540; 83550; 84443

== ENCOUNTER 2024-12-02 15:45 | Outpatient (CLI) | payer BC, SELFPAY | END 2024-12-02 23:59 | disposition home or self-care (01) | LOC: RT 15:46 | PROVIDERS: PCP Family Medicine; Visit Provider Physician Assistant | DX: R00.2 Palpitations (principal); R00.1 Bradycardia, unspecified; R00.0 Tachycardia, unspecified | CPT/HCPCS: 93270 ==

== ENCOUNTER 2024-12-10 08:03 | Outpatient (CLI) | payer BC, SELFPAY ==
[2024-12-10 09:09] LABS: Chol/HDL Ratio 3.6 (1-3.5); Cholesterol 156 mg/dl (140-200); HDL Cholesterol 43 mg/dl (40-60); Triglycerides 78 mg/dl (30-150); VLDL Cholesterol 16 mg/dL (0-40)
[2024-12-10 09:20] LABS: Direct LDL Cholesterol 84.35 mg/dL (100-129)
[2024-12-11 23:23] LABS: Hemoglobin A1C 4.4 % (4.0-6.0)
== END 2024-12-10 23:59 | disposition home or self-care (01) ==
LOC: LAB 08:03
PROVIDERS: PCP Family Medicine; Visit Provider Physician Assistant
DX: I95.9 Hypotension, unspecified (principal); R00.1 Bradycardia, unspecified
CPT/HCPCS: 36415; 80061; 83036

== ENCOUNTER 2025-01-03 07:49 | Outpatient (CLI) | payer BC, SELFPAY ==
--- NOTE | 2025-01-03 07:52 | US_ITS ---
FINAL REPORT TECHNIQUE: Sonographic images of the thyroid were obtained. CLINICAL HISTORY: THYROMEGALY FINDINGS: THYROID ULTRASOUND The right thyroid gland measures 4.7 x 1.7 x 1.4 cm. The parenchyma shows normal echogenicity. No dominant mass is seen. The left thyroid gland measures 5.2 x 1.4 x 1.5 cm. The parenchyma shows normal echogenicity. No dominant mass is seen. IMPRESSION: Homogeneous thyroid with no focal lesion. Reviewed, Interpreted and Dictated by Nicho Jimenez MD Transcribed by Mariana Au Authenticated and [facility]
== END 2025-01-03 23:59 | disposition home or self-care (01) ==
LOC: RAD 07:50
PROVIDERS: PCP Family Medicine; Visit Provider Physician Assistant
DX: E01.0 Iodine-deficiency related diffuse (endemic) goiter (principal)
CPT/HCPCS: 76536

== ENCOUNTER 2025-04-05 09:08 | Outpatient (CLI) | payer BC, SELFPAY ==
--- OUTSIDE RECORDS SUMMARY | 2025-02-10 07:00 | XMS_ITS ---
Author Organization [facility] Address [address] [place] [id number] Care Team Providers Care Professor Of Economics Name Role Phone Johnathan Duenas Primary Care Provider PranayRadha grace Unavailable [phone] Allergies No Known Allergies Results Component Value [...] 5 MG 1 tablet Orally Once a day for 90 days 01/27/2025 Active Cefdinir 300 MG 1 cap(s) Orally Two times a day for 10 day(s) 02/10/2025 Active Fluconazole 150 MG 1 tablet Orally once daily 02/10/2025 Active Multi Vitamin - 1 tablet Orally Once a day for 30 day(s) Active Vilazodone HCl 10 MG 1 tablet with food Orally Once a day for 30 day(s) Active Vital Signs Blood pressure systolic 100 mm Hg 02/11/20 25 Blood pressure diastolic 70 mm Hg 025 Heart Rate 75 /min 02/10/2025 Height 61.5 in 02/10/2025 Weight 218.6 lbs 02/10/2025 BMI 40.63 kg/m2 02/10/2025 Encounters Encounter Location Date Provider Diagnosis [facility] [address] [facility] [address] [facility] [address] [place] [id number] 02/10/2025 Radha Awad Acute otitis media, right [...] cap(s) Orally Two times a day for 10 day(s) 02/10/2025 Fluconazole 150 MG 1 tablet Orally once daily 02/10/2025 Treatment Notes Assessment Notes Body aches Pt has not yet stopp ed the methimazole. She will stop it and see if her symptoms improve. Next Appt Details Follow Up: via phone to ansley rt progress, Reason: Provider Name:Johnathan Maldonado ry, 05/11/2025 03:00:00 PM, [address] [facility] [address] [facility], [address], [place], [phone], Progress Notes * JOYCELYN GODINEZOB:1995 (29 yo F)Acc No.[id number]:02/10/2025 Progress Notes Patient: ISABELA HELMS Provider: FLORENCIA Palomino :1995 A ge:29 Y S ex:Female Date:02/10/2025 Address:[place], [id number] Pcp:Johnathan Duenas Subjective: * Chief Complaints: * [...] onsillectomy 1999, Bilateral Ankles 2018, Cholecystectomy 2016, [place] Teeth 2013, D & C 2019, Tubal [...] Examination: E NT/Respiratory: General Appearance: N AD. Ears: a uditory canals normal bilaterally, right TM erythematous, left TM normal. Nose : turbinates red. Sinuses : non tender bilaterally. Oral cavity : erythema without exudate on pharynx. Neck : n o cervical lymphadenopathy. Heart : R RR, normal S1 S2, no murmurs. Lungs: c lear to auscultation bilaterally. Abdomen : BS present, soft, nontender. ? Assessment: * Assessment: 1. A cute otitis [...] > Provider reviewed results while patient in office.DelmiaRdha Du 02/10/2025 11:39:23 AM > 3.?Body aches? Notes: Pt has not yet stopped the methimazole. She will stop it and see if her symptoms improve. ? * Labs: * L ab: Rapid Strep- Inhouse (Collection Date & Time - 02/10/2025) Value Reference Range s trep test Neg * Joann Cheema 02/10/2025 11: 17:22 AM > Patient informed of normal results.PranayRadha grace Du 02/10/2025 11:39:11 AM > * Procedure Codes: 8 7880 STREP A ASSAY W/OPTIC, Modifiers: QW , 94406 CAPILLARY BLOOD DRAW, 94743 CBC WITH AUTO DIFF * Follow Up: v ia phone to report progress * Billing Information: * Visit Code: 95058 Office Visit, Est Pt., Level 3. * Procedure Codes: 33165 STREP A ASSAY W/OPTIC. Modifiers: QW 34598 CAPILLARY BLOOD DRAW. 33276 CBC WITH AUTO DIFF. * Electronic signature of FLORENCIA Galloway on 04/06/2025 at 10:54 AM EDT Sign off status: Pending * Provider: FLORENCIA Palomino Date: 0 02/10/2025 Generated for Reggie ng/Fawoodyg/eTransmitting on: 0 04/06/2025 10:54 AM EDT History and Physical Notes * HPI (History [...]
--- OUTSIDE RECORDS SUMMARY | 2025-02-18 10:00 | XMS_ITS ---
Author Organization [facility] Address [address] [place] [phone] Care Team Providers Care Hand Ii Cutter Name Role Phone Johnathan Duenas Primary Care Provider Allergies No Known Allergies REASON FOR VISIT diarrhea Medications Medication SIG (Take, Route, Frequency, Duration) Notes Start Date End Date Status Vilazodone HCl 10 MG 1 tablet with food Orally Once a day for 30 day(s) Active busPIRone HCl 10 MG 1 tablet Orally Twic e a day Active Triamcinolone Acetonide 0.1 % 1 applicat ion Externally Two times a Week 01/26/2025 Active Propylthiouracil 50 MG 1 tablet Orally T wice a day 02/15/2025 Active Multi Vitamin - 1 tablet Orally Once a day for 30 day(s) Active Problems Problem Type SNOMED Code ICD Code Onset Dates Problem Status W/U Status Risk Notes Problem 74045544 Hyperthyroidism (E05.90) Active confirmed Vital Signs Blood pressure systolic 110 mm Hg 02/19/20 25 Blood pressure diastolic 70 mm Hg 025 Heart Rate 80 /min 02/18/2025 Height 61.5 in 02/18/2025 Weight 218.8 lbs 02/18/2025 BMI 40.67 kg/m2 02/18/2025 Encounters Encounter Location Date Provider Diagnosis [facility] [address] [facility] [address] [place] [phone] 02/18/2025 Johnathan Duenas Acute diarrhea R19.7 and [...] Appt Details Follow Up: 4 Weeks, Reason: Provider Name:Johnathan Maldonado ry, 05/11/2025 03:00:00 PM, [address], [address], [place], [id number], Progress Notes * MOHAN GODINEZNEDOB:1995 (29 yo F)Acc No.[id number]:02/18/2025 Progress Notes Patient: ISABELA HELMS Provider: Ramesh Duenas M.D. :1995 A ge:29 Y S ex:Female Date:02/18/2025 Address:[facility] [place], [id number] Subjective: * Chief Complaints: * 1 . [...] onsillectomy 1999, Bilateral Ankles 2018, Cholecystectomy 2016, [place] Teeth 2013, D & C 2019, Tubal [...] eneral Examination: General Appearance: N AD, conversant. Heart: R SR. Lungs: c lear to auscultation. Assessment: * Assessment: 1. A cute diarrhea - R19.7 (Primary) 2 . H yperthyroidism - E05.90 ? Plan: * Treatment: 2. H yperthyroidism Continue Propylthiouracil Tablet, 50 MG, 1 tablet, Orally, Twice a day. * Procedure Codes: 3 074F SYST BP LT 130 MM HG, 3078F DIAST BP < 80 MM HG * Follow Up: 4 Weeks * Billing Information: * Visit Code: 44935 Office Visit, Est Pt., Level 3. * Procedure Codes: 3074F SYST BP LT 130 MM HG. 3078F DIAST BP < 80 MM HG. * Electronic signature of Sharda Duenas MD on 04/06/2025 at 10:53 AM EDT Sign off status: Pending * Provider: Ramesh Duenas M.D. Date: 0 02/18/2025 Generated for Reggie stone/Leslie/Bill on: 0 04/06/2025 10:53 AM EDT History and Physical Notes * [...]
--- OUTSIDE RECORDS SUMMARY | 2025-03-18 10:30 | XMS_ITS ---
Author Organization [facility] Address [address] [place] [id number] Care Team Providers Care Car Electronics Installer Name Role Phone Johnathan Duenas Primary Care Provider REASON FOR VISIT fu blood work for thyroid Encounters Encounter Location Date Provider Diagnosis [facility] [address] [place] [id number] 03/18/2025 Johnathan Duenas Plan Of Treatment Next Appt Details Provider Name:Johnathan Maldonado ry, 05/11/2025 03:00:00 PM, [address], [address], [place], [phone], Progress Notes * JOYCELYN GODINEZOB:1995 (29 yo F)Acc No.[id number]:03/18/2025 Patient: ISABELA HELMS Provider: Ramesh Duenas M.D. :1995 A ge:29 Y S ex:Female Date:03/18/2025 Address:[place] Subjective: * Chief Complaints: * 1 . Fu blood work for thyroid. * 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: Objective: * Vitals: Assessment: Plan: * Treatment: * Billing Information: * Visit Code: * Procedure Codes: * Electronic signature of Sharda Deunas MD on 04/06/2025 at 10:54 AM EDT Sign off status: Pending * Provider: Ramesh Duenas M.D. Date: 0 03/18/2025 Generated for Keni ng/Leslie/eTransmitting on: 0 04/06/2025 10:54 AM EDT
[2025-04-05 16:08] LABS: Coronavirus 19, PCR Not Detected (NotDetected); Human Rhinovirus Not Detected (NotDetected); Influenza A, PCR Not Detected (NotDetected); Influenza B, PCR Not Detected (NotDetected); Respiratory Syncytial Virus Not Detected (NotDetected)
--- OUTSIDE RECORDS SUMMARY | 2025-04-06 10:53 | XMS_ITS | Clinical Summary ---
Author Organization Healthcare Address [address] [place] [address] Care Team Providers Care Hris Specialist Name Role Phone Pcp, No Primary Care Provider Unavailabl e Immunizations Immunization Administration Dates Next Due Tdap 06/01/2024,04/02/2021 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 Tobacco Use Types Packs/Day Years Used Date Smoking Tobacco: Never Assessed Comments Unknown Sex and Gender Information Value Date Recorded Sex Assigned at Female 04/09/2024 10:03 PM EDT Legal Sex Female 6:26 PM EDT Gender Identity Female 04/09/2024 10:03 PM EDT Sexual Orientation Straight 04/09/2024 10 :03 PM EDT Plan of Treatment Health Maintenance Due Date Last Done Comments [facility]-Depression Screening 1997 [facility]-HIV Screening 1997 [facility]-Hepatitis C Screening 1997 [facility]-/Child/Adol SDOH Screenings 1997 [facility]-Obesity Intervention 2003 [facility]-Varicella Vaccines (1 of 2 - 13+ 2-dose series) 2010 HPV Vaccines (1 - 3-dose series) 2012 [facility]- SDOH Screenings 2015 [facility]-Adult SDOH Screenings 2015 [facility]-Hepatitis B Vaccines (1 of 3 - 19+ 3-dose series) 2016 DPL-ICAMA-56 Vaccine (3 - 2023- season) 2024 08/06/2021, 07/17/2021 [facility]-Influenza Vaccine (Seas[place] n Ended) 2025 [facility]-Pap Smear 04/07/2026 04/07/2023 [facility]-DTaP,Tdap,and Td Vaccine s (3 - Td or Tdap) 06/01/2034 06/01/2024, 04/02/2021 [facility]-Zoster Vaccines (1 of 2) 2047 [facility]-HIB Vaccines Aged Out No longer e ligible based on patient's age to complete this topic [facility]-Hepatitis A Vaccines Aged Out No longer eligible based on patient's age to complete this topic [facility]-IPV Vaccines Aged Out No longer e ligible based on patient's age to complete this topic [facility]-Pneumococcal Vaccine: Pediatrics (0 to 5 Years) and At-Risk Patients (6 to 49 Years) Aged Out No longer eligible b ased on patient's age to complete this topic [facility]-Rotavirus Vaccines Aged Out No lo nger eligible based on patient's age to complete this topic Insurance [employer] [address]ONDR[address] Care Teams Hris Specialist Relationship Specialty Start Date End Date Pcp, [place] [address] PCP - General Family Medicine 04/08/24
--- OUTSIDE RECORDS SUMMARY | 2025-04-06 10:53 | XMS_ITS | Data Portability ---
Author Organization [facility] [employer] [employer] Address [address] [facility] [address] [place] [address] Assessment No assessment recorded. Plan of Treatment Reminders Order Date Submit Date Provider Last Modified By Organization Details Last Modified Time Details Appointments None recorded. Lab TSH, serum or plasma 2024 025 [facility], [address] [place] [address], [id number], 5 12:55:28 T4, free, serum 2024 025 [facility], [address] [place] [address], [id number], 5 12:55:29 T3, free, serum or plasma 2024 025 [facility], [address] [place] [address], [id number], 5 12:55:26 tsi (thyroid-st imulating immunoglobu gab), serum 2024 025 [facility], [address] [place] [address], [id number], 5 17:55:21 thyroid peroxidase (tpo) Ab, serum 2024 025 [facility], [address] [place] [address], [id number], 5 16:48:25 Referral None recorded. Procedures None recorded. Surgeries None recorded. Imaging None recorded. Medication Orders None recorded. Patient TargetsNo targets recorded. Patient InstructionsNo instructions recorded. Reason for Referral None Reported. Results Created Date Observation Date Name Description Value Unit Range Abnormal Flag Note LastModifiedBy Organization Detail LastModifiedTime 03/23/2003/23/2025 T3 FREE T3 free 3.00 pg/mL 2.00-4 .40 normal Not Available [facility] [address] [place] [address], [id number], 03/23/2025 12:55:26 03/23/20 25 03/23/2025 TSH TSH 0.019 u[IU] /mL 0.270- 4.200 low Not Available [facility] [address] [place] [address], [id number], 03/23/2025 12:55:28 03/23/20 25 03/23/2025 T4,FR EE T4,free 1.14 NG/dL 0.93-1 .70 normal Not Available [facility] [address] [place] [address], [id number], 03/23/2025 12:55:29 03/23/20 25 03/24/2025 THYRO ID PEROX IDASE AB thyroid peroxidase Ab 1 IU/mL <9 normal Not Available [facility] [address] [place] [address], [id number], 03/24/2025 16:48:25 03/23/20 25 03/29/2025 THYRO ID STIMU LATIN G IGS thyroid stimulating igs <89 %_bas ghazal <140 normal Thyro id stimu latin g immun oglob ulins (TSI) can engag e the TSH township supervisor tors resul ting in hyper thyro idism in [facility]' disea se patie nts. TSI level s can be usefu l in monit oring the clini ana outco me of [place]' disea se as well as asses sing the poten tial for hyper thyro idism from mater nal-f etal trans kamlesh. TSI resul ts great er than or equal to (>=) 140% of the Refer ence Contr ol are consi dered posit ramakrishna. NOTE: A serum TSH level great er than 350 micro -Inte rnati onal Units /mL can inter fere with the TSI bioas say and errol brown y give false posit ramakrishna resul ts. Patie nts who are pregn ant and are suspe cted of havin g hyper thyro idism shoul d have both TSI and human Chori onic Gonad otrop in (hCG) tests measu red. A serum hCG level great er than 40,62 5 mIU/m L can inter fere with the TSI bioas say and may give false negat ramakrishna resul ts. In these patie nts it is recom kika d that a secon d TSI be obtai bria when the hCG stephanie ntrat ion falls below 40,62 5 mIU/m L (usua lly after appro ximat cara 20-we eks gesta tion) . The екатерина tical perfo rmanc e tarik cteri stics of this assay have been deter mined by [facility] Montesi vesta Flaherty . The modif icati ons have not been clear ed or appro victorino by the FDA. This assay has been valid ated pursu ant to the CLIA regul ation s and is used for clini ana purpo ses. Not Available [facility] [address] [facility], [place], [phone], 03/29/2025 17:55:21 04/01/20 25 01/03/2025 US, thyro id No observ ation record ed. [email or web address] Not Available 2024 08:24:49 Result Notes None recorded. Medical Equipment None Reported. Medications Name Sig Start Date Stop Date Status Note LastModified by Organization Details LastModified Time trazodone 50 mg tablet Take 1 tablet every day by oral route at bedtime. active Not Available Not Available No t Available vilazodone 20 mg tablet Take 1 tablet twice a day by oral route as directed. active Not Available Not Available No t Available Ubrelvy 100 mg tablet Take 1 tablet as needed by oral route as needed. active Not Available Not Available No t Available buspirone 10 mg capsule Take 1 capsule twice a day by oral route. active Not Available Not Available No t Available Vitals Date Recorded Body weight Body mass index (BMI) Body height Systolic blood pressure Diastolic blood pressure Provider Name and Address Organization Details Last Updated DateTime 03/23/2025 79120.6 g 41.5 kg/m2 154.94 cm 112 mm[Hg] 68 mm[Hg] David Johns [facility] 11:18:55 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 None recorded. Functional Status None recorded. Mental Status None recorded. Family History Nothing Reported. 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 No medical history recorded. Gynecological HistoryNo gynecological history recorded. Obstetrics History GPAL:G 0 P 0 0 0 0 Past Encounters Encounter ID Performer Location Encounter Start Date Encounter Closed Date Diagnosis/Indication Diagnosis SNOMED-CT Code Diagnosis ICD10 Code Diagnosis Note [id number] STANISLAW LOVE APRN ENDOCRINO [facility] [address] [place] [address] 03/23/2025 11:03:56 03/23/2025 11:53:33 Hyperthyroidism 43153619 E05.90 No referral labs on fileDiagno sed December of this year per PCP.Patien t states she was started on methimazol e therapy and then Propylthio uracil, both of which she has been unable to tolerate due to SEs of light headedness , hematoma occurrence , urinary retention, edema of hands and ankles.Pat ient states she has been on no treatment for this in last 3 weeks.Fami ly history of hypothyroi d.Patient positive today for complaints of symptoms of rapid heart rate and anxiety. Recommenda tion:Will obtain TFT alongside TSI and TPO. Will call patient with results to discuss further actions needed in POC. Patient states understand ing of the above plan of care and with no questions or concerns at this time. Health Concerns Section Related Observation LastModified by Organization Detai ls LastModified Time None Recorded Concern Status LastModified by Organization Details LastModified Time None Recorded Advance Directives Directive None Recorded Payers Insurance Date Sequence Insurance Name Policy Number Policy Echols Covered Member ID Echols Member ID Guarantor Name 03/31/2025 1 [place] [id number] Garrett iCsneros [id number] Jillian Cisneros Notes Date Note Type Note Provider Name and Address Organization Details Recorded Time 03/23/2025 text/html Jillian is a 29-year-old female who presents office today after referral for management of hyperthyroidism. Patient states she was originally diagnosed by PCP in December at which time she was started on methimazole therapy and then Propylthiouracil, both of which she has been unable to tolerate. Patient states she has been on no treatment for this in last 3 weeks. She does present with symptoms consistent with hyperthyroidism including anxiety and rapid heart rate. STANISLAW LOVE, COURT [address] [place], [address], [facility] 03/23/2025 12:47:06 OBGyn Episode No OBEpisode recorded.
--- OUTSIDE RECORDS SUMMARY | 2025-04-06 10:54 | XMS_ITS | Clinical Summary ---
Author Organization [facility] Address [address] [place] [address] Care Team Providers Care Orthotic Fitter Name Role Phone Unknown, Attending Provider Primary Care Provide r Unavailable Source Comments This information has been disclosed to you from confidential records protectedfrom disclosure by state law. You shall make no further disclosure of thisinformation without the specific, written, and informed release of theindividual to whom it pertains, or as otherwise permitted by law. A generalauthorization for the release of medical or other information is not sufficientfor the purposes of therelease of HIV test results or diagnoses. [id number] Allergies No known active allergies Medications no115/iron/folic acid ( 19 ORAL) Take 1 tablet by mouth daily. Active aspirin 81 MG EC tablet Take 1 tablet (81 mg total) by mouth daily. Active AMOXicillin (AMOXIL) 500 MG tablet Take 1 tablet (500 mg total) by mouth 2 times a day. Active Active Problems Problem Noted Date Diagnosed Date Chronic hypertension 05/31/2024 Overview (06/14/2024): 05/31/2024: Has history of preeclampsia. Not on medications, BP today normal range. Baseline labs normal, P/C of 0.14 06/14/2024 normal BP History of cholestasis during 05/31/20 24 Overview (05/31/2024): 05/31/2024: Denies any complaints today. Carpal tunnel syndrome 05/31/2024 Overview (05/31/2024): 05/31/2024: Patient reported of numbness in her hands, discussed night splints. High-risk , young multigravida in secon d trimester 05/09/2024 Overview (05/31/2024): Dating: L=19 week US NOB labs: Normal, viewed on patients phone Aneuploidy screen: low risk cfDNA Flu: COVID: Anatomy US: Suspected bowel perforation Early GCT: Timed GCT: 132 05/17/2024 3rd trimester STD labs: Tdap: 05/31/2024 Contraception: Considering BTL, unsure today. GBS: Feed: Delivery plan: To be determined at 32 week [facility] visit Known anomaly, antepartum 05/09/2024 Overview (05/31/2024): See above, s/p echo, normal on 05/31 ascites 05/09/2024 Overview (06/14/2024): Patient was transferred to for concerns for hydrops secondary to anemia as she had previous infection with parvovirus this . Upon arrival to , she had normal MCA's and detailed anatomy with concerns for suspected bowel perforation. She was counseled regarding this and PUBS was deferred. She had negative CF carrier screening and low risk cfDNA 05/17/2024 ascites improved on US today 05/31/2024: echo normal at [facility], will be for 32 weeks team meeting for timing of delivery discussion and counseling. Ascites unchanged on ultrasound today. 06/14/2024 unable to appreciate ascites on US today. If reassuring team meeting and imaging, will plan to transition care back to primary OB Parvovirus infection, maternal, antepartum 04/07 Overview (05/31/2024): Patient with Parvovirus infection (02/22/24), had previously elevated MCA but now has normalized. Immunizations Immunization Administration Dates Next Due tdap 06/01/2024 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 Tobacco Use Types Packs/Day Years Used Date Smoking Tobacco: Former Cigarettes Q uit: 2019 Passive Smoke Exposure: Never Smokeless Tobacco: Never Tobacco Cessation:Counseling Given: Not Answered Alcohol Use Standard Drinks/Week Comments Not Currently 0 (1 standard drink = 0.6 oz pur e alcohol) Utilities Answer Date Recorded In the past 12 months has th e electric, gas, oil, or water company threatened to shut off services in your home? No 05/07/2024 AUDIT-C Answer Date Recorded Q1: How often do you have a drink containing alcohol? Never 05/07/2024 Q2: How many drinks containi ng alcohol do you have on a typical day when you are drinking? Patient does not drink Q3: How often do you have si x or more drinks on one occasion? Never 05/07/2024 PHQ-2 Answer Date Recorded PHQ-2 Total Score 1 05/17/2024 PRAPARE - Transportation Answer Date Re corded In the past 12 months, has l ack of transportation kept you from medical appointments or from getting medications? No 04/26 In the past 12 months, has l ack of transportation kept you from meetings, work, or from getting things needed for daily living? No 05/07/2024 Housing Stability Vital Sign Answer Noah e Recorded In the last 12 months, was t here a time when you were not able to pay the mortgage or rent on time? No 05/07/2024 In the past 12 months, how m any times have you moved where you were living? 0 05/07/2024 At any time in the past 12 m [facility], were you homeless or living in a skilled nursing (including now)? No 05/07/2024 Yearly Questionnaire Answer Date Record ed Do you need any assistance w ith obtaining housing, meals, medication, transportation or medical equipment? No 05/17 Assistance needed for: Not on file Yearly Questionnaire Answer Date Record ed Do you need any assistance w ith obtaining housing, meals, medication, transportation or medical equipment? No 05/17 Assistance needed for: Not on file Yearly Questionnaire Answer Date Record ed Do you need any assistance w ith obtaining housing, meals, medication, transportation or medical equipment? No 05/17 Assistance needed for: Not on file 4 Comments No Sex and Gender Information Value Date Recorded Sex Assigned at Not on file Legal Sex Female 10:24 AM EDT Gender Identity Not on file Sexual Orientation Not on file Last Filed Vital Signs Vital Sign Reading Time Taken Comments Blood Pressure 108/64 06/14/2024 10:54 AM EDT Pulse 81 06/14/2024 10:54 AM EDT Temperature 35.8 C (96.4 F) 06/14/2024 10:54 AM EDT Respiratory Rate 16 05/09/2024 12:1 7 PM EDT Oxygen Saturation 100% 05/09/2024 12: 17 PM EDT Inhaled Oxygen Concentration 100% 12:17 PM EDT Weight 104.9 kg (231 lb 3.2 oz) 024 10:54 AM EDT Height 154.9 cm (5' 1 ) 05/31/2024 10:3 7 AM EDT Body Mass Index 43.68 05/31/2024 10:37 AM EDT Plan of Treatment Health Maintenance Due Date Last Done Comments Hepatitis C Screening ([place]) 1997 Immunization: Hepatitis B (1 of 3 - 19+ 3-dose series) 2016 Cervical Cancer Screening/Pap Smear ([place]) 2018 Immunization: COVID-19 ( season) 2024 08/06/2021, 07/17/2021 Renal Function/GFR 05/07/2025 05/07/2024, 05/06/2024 Depression Screening 05/17/2025 05/17/2024 Diabetes Screening 05/17/2025 05/17/2024 Immunization: Influenza ([place]) (Season Ended) 2025 Immunization: DTaP/Tdap/Td (5 - Td or Tdap) 06/01/2034 06/01/2024, 04/02/2021, 03/15/2010, Additional history exists HIV Screening Completed 05/06/2024 Immunization: Pneumococcal Aged Out N o longer eligible based on patient's age to complete this topic Procedures Procedure Name Priority Date/Time Associated Diagnosis Comments GLUCOSE CHALLENGE, 1 HOUR Routine 05/17/2024 11:30 AM EDT High-risk , young multigravida in second trimester COMPREHENSIVE METABOLIC PANEL STAT 05/07/2024 5:46 PM EDT , HIV 1/2 AB+AG WITH REFLEX STAT 05/06/2024 9:10 PM EDT from Last 3 Months or Most Recently Relevant to Health Maintenance Results * Glucose Challenge, 1 Hour (05/17/2024 11:30 AM EDT) Glucose Challenge, 1 Hr 132 mg/dL 05/17/2024 12:49 PM EDT [facility] Comment: 1 HOUR GLUCOSE CHALLENGE INTERPRETATION: Women/ Non Adult - 50 gram glucose load screening for gestational diabetes Expected normal response: A one hour glucose result of less than 140 mg/dL. Plasma 05/17/2024 11:3 0 AM EDT 05/17/2024 12:11 PM EDT Timoteo Sosa MD LAB BLOOD ORDERABLES F inal Result [facility] [address] * (ABNORMAL) Comprehensive Metabolic Panel, STAT (05/07/2024 5:46 PM EDT) Pathologist [facility] Sodium 138 133 - 146 mmol/L 05/07/2024 6:30 PM EDT [facility] Potassium 3.6 3.5 - 5.3 mmol/L 05/07/2024 6:30 PM EDT [facility] Chloride 107 98 - 110 mmol/L 05/07/2024 6:30 PM EDT [facility] CO2 21 21 - 33 mmol/L 05/07/2024 6:30 PM EDT [facility] Anion Gap 10 3 - 16 mmol/L 05/07/2024 6:30 PM EDT [facility] BUN 4(L) 7 - 25 mg/dL 05/07/2024 6:30 PM EDT [facility] Creatinine 0.47(L) 0.60 - 1.30 mg/dL 05/07/2024 6:30 PM EDT [facility] Glucose 174(H) 70 - 100 mg/dL 05/07/2024 6:30 PM EDT [facility] Calcium 8.7 8.6 - 10.3 mg/dL 05/07/2024 6:30 PM EDT [facility] Total Bilirubin 0.4 0.0 - 1.5 mg/dL 05/07/2024 6:30 PM EDT [facility] AST 14 13 - 39 U/L 05/07/2024 6:30 PM EDT [facility] ALT 10 7 - 52 U/L 05/07/2024 6:30 PM EDT [facility] Alkaline Phosphatase 56 36 - 125 U/L 05/07/2024 6:30 PM EDT [facility] Total Protein 6.5 6.4 - 8.9 g/dL 05/07/2024 6:30 PM EDT [facility] Albumin 3.4(L) 3.5 - 5.7 g/dL 05/07/2024 6:30 PM EDT [facility] Osmolality, Calculated 287 278 - 305 mOsm/kg 05/07/2024 6:30 PM EDT [facility] EGFR >90 05/07/2024 6:30 PM EDT [facility] Comment: As of 2021, the estimated GFR is calculated using the 2020 Chronic Kidney Disease Epidemiology Collaboration (CKD-EPI) equation. In line with the NKF-ASN Task Force Recommendations, this equation does not include a coefficient for race. A single eGFR value is calculated for each patient. The reference interval is >60 mL/min/1.73m2. eGFR values greater than 90 will be reported as >90mL/min/1.73m2. Reference: Hernandez C, Carlos M, Devan [place], Bere [place], Tiff[place], [place]ura [place], et al. A Unifying Approach for GFR Estimation: Recommendations of the NKF-ASN Task Force on Reassessing the inclusion of Race in Diagnosing Kidney Disease. Am J Kidney Dis. 2020. GFR is estimated using creatinine, age, and sex. Patient's values should be interpreted as a trend. Below 90 mL/min/1.73m2, the patient may have renal disease. For additional information: www.kidney.org Plasma 05/07/2024 5:46 PM EDT 05/07/2024 6:02 PM EDT us Stefano Mae MD LAB BLOOD ORDERABLES Final Resul t [facility] [address] [facility] * , HIV 1/2 Ab+Ag with Reflex (05/06/2024 9:10 PM EDT) HIV 1+2 AB/AGN Nonreactive Nonreactive 05/06/2024 10:08 PM EDT [facility] Serum 05/06/2024 9:10 PM EDT 05/06/2024 9:21 PM EDT Narrative [facility] - 05/06/2024 10:08 PM EDT HIV-1 p24 Antigen and HIV-1/HIV-2 Antibody not detected. Fernando Leonard MD LAB BLOOD ORDERABLES Final Re sult Performing Organization Address City/[facility]/ZIP Co de Phone Number [facility] [address] [facility]. [address] from Last 3 Months or Most Recently Relevant to Health Maintenance Insurance [place] [id number] BLUE ACCESS Advance Directives For more information, please contact: [phone] * Full Code (Latest Code Status on File) Date Activated Date Inactivated Comments 05/06/2024 8:33 PM 05/09/2024 5:04 PM Care Teams Orthotic Fitter Relationship Specialty Start Date End Date Unknown, Attending Provider PCP - General 05/06/24
--- OUTSIDE RECORDS SUMMARY | 2025-04-06 10:54 | XMS_ITS | Continuity of Care Document ---
Author Organization [facility], ENDOCRINOLOGY [place] Address [address] [place] [id number] Assessment No assessment recorded. Plan of Treatment Reminders Order Date Submit Date Provider Last Modified By Organization Details Last Modified Time Details Appointments None recorded. Lab TSH, serum or plasma 2024 025 [facility], [address] [place] [address], [id number], 12:55:28 T4, free, serum 2024 025 [facility], [address] [place] [address], [id number], 12:55:29 T3, free, serum or plasma 2024 025 [facility], [address] [place] [address], [id number], 12:55:26 tsi (thyroid-st imulating immunoglobu gab), serum 2024 025 [facility], [address] [place] [address], [id number], 17:55:21 thyroid peroxidase (tpo) Ab, serum 2024 025 [facility], [address] [place] [address], [id number], 16:48:25 Referral None recorded. Procedures None recorded. Surgeries None recorded. Imaging None recorded. Medication Orders None recorded. Patient TargetsNo targets recorded. Patient InstructionsNo instructions recorded. Reason for Referral None Reported. Results Created Date Observation Date Name Description Value Unit Range Abnormal Flag Note LastModifiedBy Organization Detail LastModifiedTime 04/01/2001/03/2025 US, thyro id No observ ation record ed. [email or web address] Not Available 2024 08:24:49 Result Notes None [...] Address Organization Details Last Updated DateTime 03/23/2025 98431.6 g 41.5 kg/m2 154.94 cm 112 mm[Hg] 68 mm[Hg] [facility] 11:18:55 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 None recorded. Functional Status None recorded. Mental Status None recorded. Family History Nothing Reported. 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 No medical history recorded. Gynecological HistoryNo gynecological history recorded. Obstetrics History GPAL:G 0 P 0 0 0 0 Past Encounters Encounter ID Performer Location Encounter Start Date Encounter Closed Date Diagnosis/Indication Diagnosis SNOMED-CT Code Diagnosis ICD10 Code Diagnosis Note [id number] STANISLAW LOVE APRN [facility] [address] [place] [address] 03/23/2025 11:03:56 03/23/2025 11:53:33 Hyperthyroidism 44574267 E05.90 No referral labs on fileDiagno sed December of this year per PCP.Amita t states she was started on methimazol [...] by Organization Details LastModified Time None Recorded Payers Encounter Date Sequence Insurance Name Policy Number Policy Echols Covered Member ID Echols Member ID Guarantor Name 03/23/2025 1 LESLIE (PPO) [id number] Garrett Cisneros [id number] Jillian Blayne Notes Date Note Type Note Provider Name [...] anxiety and rapid heart rate. STANISLAW LOVE, INTELLIGENCE DIRECTOR [address] [place], [address], [facility] 03/23/2025 12:47:06 OBGyn Episode No OBEpisode recorded.
--- OUTSIDE RECORDS SUMMARY | 2025-04-06 10:54 | XMS_ITS | Data Portability ---
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 The patient's low back and neck pain causes radicular pain to the BUE/BLE with numbness/tingling at times of exacerbation, likely associated with lumbar and cervical stenosis, as evidenced by history and physical exam. I believe that the patient's pain in the low back is discogenic in nature as well. To address the patient's pain: I will proceed with scheduling a lumbar epidural at L5-S1. I had a detailed discussion with the patient regarding the procedure and the risks/benefits and addressed any questions/concerns today. I reviewed patient's previous imaging today. Once the patient's lumbar radiculopathy is addressed, I will discuss further injections to address her cervical pain. - Schedule a LEI at L5-S1 - Reviewed previous imaging today - Follow up 2 weeks post injection to assess efficacy [email or web address] Not available 08/06/2022 15:11:46 08/26/2022 08/26/2022 [facility] [address] [facility] [place] [address]. This was a real-time clinical encounter over [email or web address] Consent was obtained to engage in telemedicine service. Greater than 50% of the time spent was devoted to counseling and coordinating care including review of records, pertinent lab data and studies as well as discussing diagnostic evaluation and workup, plan therapeutic interventions and future disposition of care. This included any additional research needed to obtain further information in formulating the plan of care for this patient. This includes counseling with the patient about their disease and diagnosis, specifically as below. Patient was also counseled on the precaution of COVID-19 including importance of hand washing and social distancing. WE SPECIFICALLY DISCUSSED RISK FACTORS FOR COVID-19, INCLUDING AGE>60, HEART OR LUNG DISEASE, DIABETES, IMMUNOSUPPRESSION, AND TRAVEL. WE ALSO DISCUSSED THAT NSAIDS MAY WORSEN COVID-19 INFECTION SYMPTOMS AND THAT THEY SHOULD NOT BE USED TO TREAT COVID-19 SYMPTOMS. PATIENT WAS ALSO INFORMED THAT CORTICOSTEROIDS IN ANY FORM (ORAL OR INJECTABLE) WILL DECREASE IMMUNE RESPONSE AND MAY INCREASE RISK OF COVID-19 INFECTION AND SYMPTOMS. THIS ENCOUNTER WAS PERFORMED A TELEMEDICINE VISIT VIA SECURE TWO-WAY VIDEO AND AUDIO TO MINIMIZE RISK AND TRANSMISSION OF COVID-19. THE PATIENT AND WE UNDERSTAND THE LIMITATIONS OF A TELEMEDICINE VISIT INCLUDING INABILITY TO CHECK REFLEXES, POSSIBLY MISSING SUBTLE FINDINGS ON PHYSICAL EXAM. ALTERNATIVE OPTIONS WERE PRESENTED TO THE PATIENT AND THE PATIENT ELECTED TO PROCEED WITH THE VISIT. Mrs. Gdoinez was referred by Dr. Persaud for ligamentous sprains of the lumbar spine. The patient has been participating in chiropractic for the last 5-6 months with minimal benefit. The patient has also been performing at-home exercises/stretche s. The patient presents today via televideo 2 weeks S/P lumbar epidural. The patient denies experiencing significant improvement in pain or function following the procedure. The patient continues to complain of low back and buttock pain with radiation down the BLE. Based on the history and physical exam it appears that the pain is associated with lumbar radiculopathy secondary to lumbar degenerative disc disease with spinal stenosis. I'm suspicious of sacroiliitis, which I will investigate further at the next visit. The patient also complains of neck pain with radiation down the BUE with numbness/tingling. I will begin to treat neck pain after treating low back pain. I will follow up in 2 weeks to reassess pain. [email or web address] Not available 08/26/2022 15:22:52 12/30/2022 12/30/2022 Mrs. Godinez was referred by Dr. Persaud for ligamentous sprains of the lumbar spine. The patient has been participating in chiropractic for the last 5-6 months with minimal benefit. The patient has also been performing at-home exercises/stretche s. The patient presents in the clinic today for pain reassessment. The patient denies experiencing significant improvement in pain or function following a previous lumbar epidural injection. The patient continues to complain of low back and buttock pain with radiation down the BLE. Based on the history and physical exam it appears that the pain is associated with lumbar radiculopathy secondary to lumbar degenerative disc disease with spinal stenosis. Given the patients complaint of bilateral hip pain (with the right hip causing the most pain), that radiates into the RLE, and intermittently results in her right foot going numb, I believe this patient would benefit from a bilateral SI Joint Injection to treat the sacroiliitis. Patient wants to further think about the injection; will discuss further at next visit. The patient also complains of neck pain with radiation down the BUE with numbness/tingling. She states that the pain radiates into her skull. The patient would like to address her neck pain while she considers the SI injection. To address the patient's cervical pain: I will perform a trigger point injection to target the bilateral paracervical muscles including the trapezius and levator scapulae. - I will follow up to reassess pain and have further discussion regarding SI Joint injection. [email or web address] Not available 12/30/2022 17:02:39 Plan of Treatment Reminders Order Date Submit Date Provider Last Modified By Organization Details Last Modified Time Details Appointments None recorded. Lab CBC w/ auto diff [email or web address] [place] [address] (Lab Registration) , [address] [place] [address] [place], [address], 3 16:03:52 Referral None recorded. Procedures upper endoscopy procedure (EGD) (PROC) 2022 023 [email or web address] 4 Not available 3 08:07:22 upper endoscopy procedure (EGD) (PROC) 2022 023 [email or web address] 4 Not available 3 08:07:23 colonoscopy procedure (PROC) 2022 023 [email or web address] 4 Not available 3 16:11:29 injection, trigger point (PROC) - 342[address], [id number] bilateral paracervica l muscles including trapezius and levator scapulae 2022 023 [email or web address] 7 Not available 3 16:28:35 epidural steroid injection, lumbar (PROC) - 20004 lei l5-s1 2021 022 [email or web address] Not available 11:45:00 Surgeries None recorded. Imaging XR, abdomen, 1 view - Rule out stool burden. [address] ([facility]), [address] [place] [address] [place], [address], 3 09:13:57 Medication Orders pantoprazol e 40 mg tablet,mckinley yed release 2022 023 [facility], [address], [address], 3 11:46:52 Miralax 17 gram/dose oral powder [address] [facility], [address], [address], 3 16:03:52 Dulcolax (bisacodyl) 5 mg tablet,mckinley yed release [address] [facility], [address], [address], 3 16:03:52 Patient TargetsNo targets recorded. Patient Instructions Encounter Date Encounter Id Patient Instructions Last Modified By Organization Details Last Modified Time 08/05/2022 [id number] I have discussed in great detail our potential treatment options which would include a rehabilitative approach to care. This program would include medication management, Physical Therapy, consideration for interventional procedures as appropriate, and lifestyle modification (diet, weight loss, exercise, smoking/tobacco cessation, holistic approach including meditation and yoga). The patient understands and agrees prior to proceeding with this plan. _ __ __ __ __ __ __ __ __ __ __ __ __ __ __ __ __ __ __ __ __ __ __ __ __ __ __ __ _ RECORDS REVIEW: As per clinic policy, we will have the patient sign a release to obtain previous imaging and clinical notes. PROCEDURE: I counseled the patient extensively and informed of the risks of the procedure, including the risk of paralysis, nerve damage, respiratory arrest, arrhythmias, stroke, weakness, and infection, which although very low, could result in or disability. The patient acknowledged to me that they understand and accept these risks. RN EDUCATION Extensive coordination of care provided by RN to educate patient on upcoming procedure and to coordinate obtaining extensive incoming medical records. _ __ __ __ __ __ __ __ __ __ __ __ __ __ __ __ __ __ __ __ __ __ __ __ __ __ __ __ _ PSYCH: Pain affecting Neuro-psych behavior was discussed. Discussed about pain psychological counseling as a part of the multimodal approach to pain treatment. _ __ __ __ __ __ __ __ __ __ __ __ __ __ __ __ __ __ __ __ __ __ __ __ __ __ __ __ _ REHABILITATION: Discussed with the patient the importance of diet, daily physical activity and PT. Discussed with the patient the need to be scheduled for physical therapy since physical therapy will prolong the benefits of the procedure and interventions. _ __ __ __ __ __ __ __ __ __ __ __ __ __ __ __ __ __ __ __ __ __ __ __ __ __ __ __ _ LATHA: [id number] I have reviewed patient's LATHA report prior to prescribing Schedule II, III, and IV medications that require review by law. [email or web address] Not available 08/06/2022 14:59:07 08/26/2022 [id number] I have discussed in great detail our potential treatment options which would include a rehabilitative approach to care. This program would include medication management, Physical Therapy, consideration for interventional procedures as appropriate, and lifestyle modification (diet, weight loss, exercise, smoking/tobacco cessation, holistic approach including meditation and yoga). The patient understands and agrees prior to proceeding with this plan. _ __ __ __ __ __ __ __ __ __ __ __ __ __ __ __ __ __ __ __ __ __ __ __ __ __ __ __ _ RECORDS REVIEW: As per clinic policy, we will have the patient sign a release to obtain previous imaging and clinical notes. _ __ __ __ __ __ __ __ __ __ __ __ __ __ __ __ __ __ __ __ __ __ __ __ __ __ __ __ _ PSYCH: Pain affecting Neuro-psych behavior was discussed. Discussed about pain psychological counseling as a part of the multimodal approach to pain treatment. _ __ __ __ __ __ __ __ __ __ __ __ __ __ __ __ __ __ __ __ __ __ __ __ __ __ __ __ _ REHABILITATION: Discussed with the patient the importance of diet, daily physical activity and PT. Discussed with the patient the need to be scheduled for physical therapy since physical therapy will prolong the benefits of the procedure and interventions. _ __ __ __ __ __ __ __ __ __ __ __ __ __ __ __ __ __ __ __ __ __ __ __ __ __ __ __ _ LATHA: [id number] I have reviewed patient's LATHA report prior to prescribing Schedule II, III, and IV medications that require review by law. Not available 08/26/2022 15:22:44 12/30/2022 [id number] I have discussed in great detail our potential treatment options which would include a rehabilitative approach to care. This program would include medication management, Physical Therapy, consideration for interventional procedures as appropriate, and lifestyle modification (diet, weight loss, exercise, smoking/tobacco cessation, holistic approach including meditation and yoga). The patient understands and agrees prior to proceeding with this plan. _ __ __ __ __ __ __ __ __ __ __ __ __ __ __ __ __ __ __ __ __ __ __ __ __ __ __ __ _ RECORDS REVIEW: As per clinic policy, we will have the patient sign a release to obtain previous imaging and clinical notes. _ __ __ __ __ __ __ __ __ __ __ __ __ __ __ __ __ __ __ __ __ __ __ __ __ __ __ __ _ PSYCH: Pain affecting Neuro-psych behavior was discussed. Discussed about pain psychological counseling as a part of the multimodal approach to pain treatment. _ __ __ __ __ __ __ __ __ __ __ __ __ __ __ __ __ __ __ __ __ __ __ __ __ __ __ __ _ REHABILITATION: Discussed with the patient the importance of diet, daily physical activity and PT. Discussed with the patient the need to be scheduled for physical therapy since physical therapy will prolong the benefits of the procedure and interventions. _ __ __ __ __ __ __ __ __ __ __ __ __ __ __ __ __ __ __ __ __ __ __ __ __ __ __ __ _ LATHA: [id number] I have reviewed patient's LATHA report prior to prescribing Schedule II, III, and IV medications that require review by law. [email or web address] Not available 12/30/2022 17:00:21 Reason for Referral None Reported. Results Created Date Observation Date Name Description Value Unit Range Abnormal Flag Note LastModifiedBy Organization Detail LastModifiedTime 03/19/2003/19/2023 CBC AUTO W DIFF WBC 6.0 10 4.5-11 .5 Not Available [facility] (Lab Registration) [address], [place], [address], 03/19/2023 12:16:40 03/19/2003/19/2023 CBC AUTO W DIFF RBC 4.19 10 4.25-5 .57 low Not Available [facility] (Lab Registration) [address] [place], [address], 03/19/2023 12:16:40 03/19/20 23 03/19/2023 CBC AUTO W DIFF HGB 12.4 g/dL 12.0-1 5.7 Not Available [facility] (Lab Registration) [address] [place], [address], 03/19/2023 12:16:40 03/19/20 23 03/19/2023 CBC AUTO W DIFF HCT 37.1 % 36.0-4 7.0 Not Available [facility] (Lab Registration) [address] [place], [address], 03/19/2023 12:16:40 03/19/20 23 03/19/2023 CBC AUTO W DIFF MCV 88.5 fL 80-95 Not Available [facility] (Lab Registration) [address] [place], [address], 03/19/2023 12:16:40 03/19/20 23 03/19/2023 CBC AUTO W DIFF MCH 29.6 pg 27.0-3 4.0 Not Available [facility] (Lab Registration) [address] [place], [address], 03/19/2023 12:16:40 03/19/20 23 03/19/2023 CBC AUTO W DIFF MCHC 33.4 g/dL 32.0-3 6.0 Not Available [facility] (Lab Registration) [address] [place], [address], 03/19/2023 12:16:40 03/19/20 23 03/19/2023 CBC AUTO W DIFF platelet count 205 10 150-45 0 Not Available [facility] (Lab Registration) [address] [place], [address], 03/19/2023 12:16:40 03/19/20 23 03/19/2023 CBC AUTO W DIFF RDW 14.4 % 12.3-1 5.1 Not Available [facility] (Lab Registration) [address] [place], [address], 03/19/2023 12:16:40 03/19/20 23 03/19/2023 CBC AUTO W DIFF MPV 10.0 fL 7.4-10 .4 Not Available [facility] (Lab Registration) [address] [place], [address], 03/19/2023 12:16:40 03/19/20 23 03/19/2023 CBC AUTO W DIFF granulocyte% 61.9 % 40-75 Not Available [facility] (Lab Registration) [address] [place], [address], 03/19/2023 12:16:40 03/19/20 23 03/19/2023 CBC AUTO W DIFF lymphocyte% 29.8 % 15-57 Not Available [facility] (Lab Registration) [address] [place], [address], 03/19/2023 12:16:40 03/19/20 23 03/19/2023 CBC AUTO W DIFF monocyte% 5.7 % 4.0-12 .0 Not Available [facility] (Lab Registration) [address] [place], [address], 03/19/2023 12:16:40 03/19/20 23 03/19/2023 CBC AUTO W DIFF eosinophil% 2.2 % 0.0-4. 0 Not Available [facility] (Lab Registration) [address] [place], [address], 03/19/2023 12:16:40 03/19/20 23 03/19/2023 CBC AUTO W DIFF basophil% 0.2 % 0.0-1. 0 Not Available [facility] (Lab Registration) [address] [place], [address], 03/19/2023 12:16:40 03/19/20 23 03/19/2023 CBC AUTO W DIFF immature granulocytes % 0.2 % 0.0-0. 8 Not Available [facility] (Lab Registration) [address] [place], [address], 03/19/2023 12:16:40 03/19/20 23 03/19/2023 CBC AUTO W DIFF granulocyte# 3.72 10 Not Available [facility] (Lab Registration) [address] [place], [address], 03/19/2023 12:16:40 03/19/20 23 03/19/2023 CBC AUTO W DIFF lymphocyte# 1.79 10 Not Available [facility] (Lab Registration) [address] [place], [address], 03/19/2023 12:16:40 03/19/20 23 03/19/2023 CBC AUTO W DIFF monocyte# 0.34 10 Not Available [facility] (Lab Registration) [address] [place], [address], 03/19/2023 12:16:40 03/19/20 23 03/19/2023 CBC AUTO W DIFF eosinophil# 0.13 10 Not Available [facility] (Lab Registration) [address] [place], [address], 03/19/2023 12:16:40 03/19/20 23 03/19/2023 CBC AUTO W DIFF basophil# 0.01 10 Not Available [facility] (Lab Registration) [address] [place], [address], 03/19/2023 12:16:40 03/19/20 23 03/19/2023 CBC AUTO W DIFF immature granulocytes # 0.01 10 Not Available [facility] (Lab Registration) [address] [place], [address], 03/19/2023 12:16:40 03/19/20 23 03/19/2023 CBC AUTO W DIFF manual differential NO Not Available [facility] (Lab Registration) [address] [place], [address], 03/19/2023 12:16:40 03/19/20 23 03/19/2023 CBC AUTO W DIFF note Unles s other perez noted testi ng perfo rmed at: [facility] [address] [place] [address] [phone] Ayden brady MD CLIA: [id number] Not Available [facility] (Lab Registration) [address] [place], [address], 03/19/2023 12:16:40 04/02/20 23 04/02/2023 URINE PREGN MY TEST urine test NEGATI VE negati ve Not Available [facility] (Lab Registration) [address] [place], [address], 04/02/2023 11:07:40 04/02/20 23 04/02/2023 URINE PREGN MY TEST internal control PASS PASS Not Available [facility] (Lab Registration) [address] [place], [address], 04/02/2023 11:07:40 04/02/20 23 04/02/2023 URINE PREGN MY TEST note Unles s other perez noted testi ng perfo rmed at: [facility] [address] [place] [address] [phone] Ayden brady MD CLIA: [id number] Not Available [facility] (Lab Registration) [address] [place], [address], 04/02/2023 11:07:40 05/14/20 23 05/14/2023 XR, abdom en, 1 view No observ ation record ed. [email or web address] [facility] (Radiology) [address] [place], [address], 05/16/2023 13:55:43 05/14/20 23 05/14/2023 XR, abdom en, 1 view [facility] [address] [place] [address] Phone: Fax: Name: GULSHAN GODINEZ Exam Date: 023 : 1994 Age 27 Gender : F Access ion: [id number] Physic santiago: MEMO AHMADI [place]: [place] Facili ty HSV: Outpat ient Exam: ABD KUB 1V KUB. HISTOR Y: Left upper quadra nt pain COMPAR JAMARCUS: None. FINDIN GS: A single view of the abdome n demons trates a nonspe cific bowel gas patter n. 4 mm calcif icatio n superi or to right iliac crest, favore d not to be within the ureter or kidney , possib ly a fecali th. Consid er CT if clinic gretta chong. Mild retain ed stool, correl ate for consti pation . No acute osseou s change s. IMPRES QUIQUE: Mild retain ed stool, correl ate for consti pation . Dictat ed By: CONSUELO FRENCH Transc ribed By: CONSUELO FRENCH Transc ribed On: 023 3:53 PM Electr onical ly signed by: CONSUELO FRENCH Thank you for referr ing [facility] Legall y authen ticate d by POPE CONSUELO Kern DO 2022-05-14 15:53: 44 CC'ed Logic: Orderi ng Provid er: KEATON Ortega CC Provid er: NICHOL ROA Attend ing Provid er: KEATON Ortega Referr ing Provid er: KEATON Ortega Admitt ing Provid er: KEATON Ortega [email or web address] [facility] (Radiology) [address] [place], [address], 05/16/2023 13:55:43 Result Notes None recorded. Problems Name Problem SNOMED Code Status Onset Date Resolution Date Notes Provider Name and Address Organization Details Recorded Time Spinal stenosis of lumbar region 24327694 Active 2021 Shakira Vallecillo null, [place] [facility] [place] [facility] [place] 2 14:55:03 Lumbar discogenic pain 952966398 Active 2021 Shakira Vallecillo null, [place] [facility] [place] 2 14:55:22 Lumbar radiculopathy 544799546 Active 2021 Shakira Vallecillo null, [place] [facility] [place] [facility] [place] 2 14:55:26 Ligamentous strain 911713879 Active 2021 Shakira Vallecillo null, [place] [facility] [place] [facility] [place] 2 14:55:50 Scoliosis deformity of spine 465266020 Active 2021 Shakira Vallecillo null, [place] [facility] [place] [facility] [place] 2 14:56:39 Radicular pain 73399221 Active 2021 Shakira Vallecillo null, [place] [facility] [place] [facility] [place] 2 14:56:47 Myofascial pain 756731562 Active 2021 Shakira Vallecillo null, [place] [facility] [place] [facility] [place] 2 14:56:55 Spinal stenosis in cervical region 08447885 Active 2021 Shakira Vallecillo null, [place] [facility] [place] [facility] [place] 2 14:57:44 Cervical radiculopathy 49875681 Active 2021 Shakira Vallecillo [place] [facility] [place] 2 14:58:04 Neck pain 65426288 Active 2021 Shakira Vallecillo [place] [facility] [place] 2 14:58:15 Brachial (cervical) neuritis 821643284 Active 2021 Shakira Vallecillo null[place] [facility] [place] 2 14:58:21 Chronic idiopathic constipation 51853026 Active 2022 Noemi Ahmadi NP [address] [place] [address], [address], [place], [address], [place] [facility] [place] 3 11:46:46 Gastro-esophag eal reflux disease with esophagitis 579367919 Active 2022 Noemi Ahmadi NP [address], [address], [place], [place], [address], [place] [facility] & [place] 3 14:44:37 Left lower quadrant pain 864928472 Active 2022 Noemi Ahmadi NP [address], [address], [place], [place], [address], [place] [facility] & [place] 3 14:44:37 Problem Notes None recorded. Procedures Surgical History Date Name Laterality Status Provider Name and Address Organization Details Recorded Time 04/02/20 23 EGD/Endoscopy completed Chiquita Lin [place] [facility] [place] [facility] [place] 05/14/2023 13:48:42 04/02/20 23 Colonoscopy completed Chiquita Lin [place] [facility] [place] [facility] [place] 05/14/2023 13:49:07 10/27/19 17 cholecystectomy completed stephanie gregorycraft [place] - [facility] [place] [facility] [place] 08/05/2022 12:46:08 10/27/19 01 tonsillectomy and adenoidectomy completed stephanie [place] - [facility] [place] & [place] 08/05/2022 12:46:26 extraction of wisdom tooth completed Chiquita Lin [place] [facility] [place] [facility] [place] 05/14/2023 13:48:14 Dilation and Curettage completed Chiquita Lin [place] - [facility] [place] [facility] [place] 05/14/2023 13:48:57 Imaging Results None recorded. Procedure Notes None recorded. Medical Equipment None Reported. Allergies No known drug allergies Medications Name Sig Start Date Stop Date Status Note LastModified by Organization Details LastModified Time eye itch relief 0.035 mason 1 DROP INTO EACH EYE TWICE DAILY active Not Available Not Available No t Available cyclobenzap rine 10 mg tablet TAKE 1 TABLET BY MOUTH EVERY 8 HOURS NEEDED FOR MUSCLE SPASMS active Not Available Not Available No t Available metformin 500 mg tablet TAKE 1 TABLET BY MOUTH TWICE DAILY 08/05 completed Not Available Not Available Not Available Aviane 0.1 mg-20 mcg tablet TAKE 1 TABLET BY MOUTH ONCE DAILY 12/30 completed Not Available Not Available Not Available fluconazole 150 mg tablet TAKE 1 TABLET BY MOUTH A ONE TIME DOSE active Not Available Not Available No t Available metoprolol succinate ER 50 mg tablet,exte nded release 24 hr TAKE 1 TABLET BY MOUTH ONCE DAILY active Not Available Not Available No t Available meloxicam 15 mg tablet TAKE 1 TABLET BY MOUTH ONCE DAILY active Not Available Not Available No t Available sertraline 100 mg tablet TAKE 1 & 1/2 (ONE & ONE-HALF) TABLETS BY MOUTH ONCE DAILY active Not Available Not Available No t Available topiramate 25 mg tablet TAKE 1 TABLET BY MOUTH AT BEDTIME FOR 7 DAYS THEN TAKE 2 AT NIGHT FOR A WEEK THEN USE FOLLOW UP INSTRUCTI ONS FROM DR NELLY CASE 4 TABS A DAY 08/05 completed Not Available Not Available Not Available metronidazo le 500 mg tablet TAKE 1 TABLET BY MOUTH TWICE DAILY FOR 7 DAYS active Not Available Not Available No t Available valacyclovi r 500 mg tablet TAKE 1 TABLET BY MOUTH TWICE DAILY FOR 14 DAYS active Not Available Not Available No t Available sulfamethox azole 800 mg-trimetho prim 160 mg tablet TAKE 1 TABLET BY MOUTH TWICE DAILY FOR 3 DAYS 08/05 completed Not Available Not Available Not Available triamcinolo ne acetonide 0.1 % topical cream APPLY CREAM TOPICALLY THREE TIMES DAILY NEEDED active Not Available Not Available No t Available ondansetron 8 mg disintegrat ing tablet DISSOLVE 1 TABLET IN MOUTH 4 TIMES DAILY NEEDED FOR NAUSEA AND VOMITING active Not Available Not Available No t Available dexamethaso ne 0.5 mg/5 mL oral solution RINSE AND HOLD 10 ML BY MOUTH FOR 2 MINUTES THEN SPIT 4 TIMES DAILY 12/30 completed Not Available Not Available Not Available dicyclomine 20 mg tablet TAKE 1 TABLET BY MOUTH THREE TIMES DAILY NEEDED FOR PAIN active Not Available Not Available No t Available ciprofloxac in 0.3 % eye drops APPLY TO AFFECTED EYE(S) 4 TIMES DAILY active Not Available Not Available No t Available rizatriptan 10 mg disintegrat ing tablet DISSOLVE 1 TABLET IN MOUTH EVERY 2 HOURS NEEDED FOR MIGRAINE HEADACHE, DO NOT EXCEED 2 DOSES PER 24 HOURS OR 4 DOSES PER WEEK 08/05 completed Not Available Not Available Not Available hydrocodone 7.5 mg-acetamin ophen 325 mg tablet TAKE 1 TABLET BY MOUTH EVERY 6 HOURS NEEDED FOR POST OP PAIN active Not Available Not Available No t Available pantoprazol e 40 mg tablet,mckinley yed release Take 1 tablet by mouth once daily for 30 days 2022 active Not Available Not Available Not Avai lable erythromyci n 5 mg/gram (0.5 %) eye ointment APPLY TO AFFECTED EYELID AT BEDTIME active Not Available Not Available No t Available nystatin 100,000 unit/gram topical cream APPLY CREAM TOPICALLY TWICE DAILY active Not Available Not Available No t Available Gentle Laxative (bisacodyl) 5 mg tablet,mckinley yed release TAKE 2 TABLETS BY MOUTH DIRECTED FOR 1 DAY active Not Available Not Available No t Available hyoscyamine 0.125 mg sublingual tablet DISSOLVE 1 TABLET UNDER THE TONGUE EVERY 4 HOURS NEEDED 08/05 completed Not Available Not Available Not Available polyethylen e glycol 3350 17 gram/dose oral powder TAKE 10 CAPFULS IN 32 OUNCES OF GATORADE AT 4 PM THE DAY BEFORE PROCEDURE . REPEAT AT 4 AM THE MORNING OF PROCEDURE active Not Available Not Available No t Available methylpredn isolone 4 mg tablets in a dose pack TAKE BY MOUTH DIRECTED ON INSIDE OF PACKAGE active Not Available Not Available No t Available norethindro ne (contracept ramakrishna) 0.35 mg tablet TAKE 1 TABLET BY MOUTH ONCE DAILY 08/05 completed Not Available Not Available Not Available bromphenira mine-pseudo ephedrine-D M 2 mg-30 mg-10 mg/5 mL oral syrup TAKE 5 ML TO 10 ML BY MOUTH 4 TIMES DAILY NEEDED 12/30 completed Not Available Not Available Not Available fluoxetine 20 mg capsule TAKE 1 CAPSULE BY MOUTH ONCE DAILY active Not Available Not Available No t Available sertraline 50 mg tablet TAKE 1 TABLET BY MOUTH ONCE DAILY 08/05 completed Not Available Not Available Not Available tobramycin 0.3 %-dexametha sone 0.1 % eye drops,suspe nsion INSTILL 1 DROP INTO EACH EYE 4 TIMES DAILY FOR 4 DAYS active Not Available Not Available No t Available clindamycin 1 % lotion APPLY LOTION TOPICALLY TO AFFECTED AREA TWICE DAILY 08/05 completed Not Available Not Available Not Available cyclobenzap rine 5 mg tablet TAKE 1/2 TO 1 (ONE-HALF TO ONE) TABLET BY MOUTH THREE TIMES DAILY NEEDED active Not Available Not Available No t Available aripiprazol e 5 mg tablet TAKE 1 TABLET BY MOUTH AT BEDTIME active Not Available Not Available No t Available topiramate 50 mg tablet TAKE 3 TABLETS BY MOUTH AT BEDTIME FOR CHRONIC MIGRAINES DISCONTIN UE IN THE EVENT OF 08/05 completed Not Available Not Available Not Available Enskyce 0.15 mg-0.03 mg tablet TAKE 1 TABLET BY MOUTH ONCE DAILY active Not Available Not Available No t Available Vraylar 1.5 mg capsule TAKE 1 CAPSULE BY MOUTH ONCE DAILY active Not Available Not Available No t Available Linzess 72 mcg capsule TAKE 1 CAPSULE BY MOUTH ONCE DAILY DIRECTED FOR 90 DAYS 2022 active Not Available Not Available Not Avai lable Tyblume 0.1 mg-20 mcg chewable tablet CHEW 1 TABLET BY MOUTH ONCE DAILY (ON AN EMPTY STOMACH WITH 8 OUNCES OF WATER) active Not Available Not Available No t Available Tyblume active Not Available Not Avail able Not Available Nextstellis 3 mg-14.2 mg (28) tablet active Not Available Not Available Not Available Auvelity 45 mg-105 mg tablet, extended release TAKE 1 TABLET BY MOUTH TWICE DAILY active Not Available Not Available No t Available Vitals Date Recorded Body height Body mass index (BMI) Body weight Body temperature Oxygen saturation Oxygen saturation in Arterial blood by Pulse oximetry Heart rate Provider Name and Address Organization Details Last Updated DateTime 3 154.94 cm 37.2 kg/m2 82402.7 g 98 [degF] 98 % 98 % 69 /min [facility] & [place] 3 10:56:39 Date Recorded Body height Body mass index (BMI) Body weight Body temperature Oxygen saturation Oxygen saturation in Arterial blood by Pulse oximetry Heart rate Provider Name and Address Organization Details Last Updated DateTime 3 154.94 cm 37.2 kg/m2 78461.7 g 97.4 [degF] 99 % 99 % 86 /min [facility] & [place] 3 13:50:07 Date Recorded Body height Body mass index (BMI) Body weight Body temperature Oxygen saturation Oxygen saturation in Arterial blood by Pulse oximetry Heart rate Respiratory rate Systolic blood pressure Diastolic blood pressure Provider Name and Address Organization Details Last Updated DateTime 154.94 cm 37.4 kg/m2 08625.0 1 g 96.6 [degF] 99 % 99 % 63 /min 16 /min 121 mm[Hg] 85 mm[Hg] stephanie simental [place] - [facility] & [place] 10:22:56 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 None recorded. Functional Status None recorded. Mental Status None recorded. Family History Relationship Description Onset Age of this Age Resolved Age Notes LastModified by Organization Details LastModified Time Mother Hypertensive disorder 53 Degene rated disc diseas e; Gallbl adder remove d; arthri tis; Kidney stones [place] Not available 08/05/2022 12:43:09 Mother Disorder of endocrine system pt. added direct ly (03/17) API-13 Not available 03/17/2023 01:57:39 Mother Substance abuse pt. added direct ly (03/17) API-13 Not available 03/17/2023 01:58:08 Mother Sleep disorder pt. added direct ly (03/17) API-13 Not available 03/17/2023 01:58:27 Mother Seizure disorder pt. added direct ly (03/17) API-13 Not available 03/17/2023 01:58:36 Mother Rheumatoid arthritis pt. added direct ly (03/17) API-13 Not available 03/17/2023 01:58:48 Mother Obesity pt. added direct ly (03/17) API-13 Not available 03/17/2023 01:59:16 Mother Mental health problem pt. added direct ly (03/17) API-13 Not available 03/17/2023 01:59:47 Mother Hypercholest erolemia pt. added direct ly (03/17) API-13 Not available 03/17/2023 02:00:36 Mother Headache pt. added direct ly (03/17) API-13 Not available 03/17/2023 02:01:05 Mother Cystic fibrosis pt. added direct ly (03/17) API-13 Not available 03/17/2023 02:01:42 Mother Chronic obstructive pulmonary disease pt. added direct ly (03/17) API-13 Not available 03/17/2023 02:01:48 Maternal Grandmother Disorder of endocrine system pt. added direct ly (03/17) API-13 Not available 03/17/2023 01:57:39 Maternal Grandmother Rheumatoid arthritis pt. added direct ly (03/17) API-13 Not available 03/17/2023 01:58:48 Maternal Grandmother Osteoporosis pt. added direct ly (03/17) API-13 Not available 03/17/2023 01:59:00 Maternal Grandmother Obesity pt. added direct ly (03/17) API-13 Not available 03/17/2023 01:59:16 Maternal Grandmother Mental health problem pt. added direct ly (03/17) API-13 Not available 03/17/2023 01:59:47 Maternal Grandmother Hypertensive disorder pt. added direct ly (03/17) API-13 Not available 03/17/2023 02:00:21 Maternal Grandmother Myocardial infarction pt. added direct ly (03/17) API-13 Not available 03/17/2023 02:00:52 Maternal Aunt Disorder of endocrine system pt. added direct ly (03/17) API-13 Not available 03/17/2023 01:57:39 Maternal Aunt Disorder of thyroid gland pt. added direct ly (03/17) API-13 Not available 03/17/2023 01:57:50 Maternal Aunt Obesity pt. added direct ly (03/17) API-13 Not available 03/17/2023 01:59:16 Maternal Aunt Hypertensive disorder pt. added direct ly (03/17) API-13 Not available 03/17/2023 02:00:21 Maternal Aunt Myocardial infarction pt. added direct ly (03/17) API-13 Not available 03/17/2023 02:00:52 Sister Substance abuse pt. added direct ly (03/17) API-13 Not available 03/17/2023 01:58:08 Sister Mental health problem pt. added direct ly (03/17) API-13 Not available 03/17/2023 01:59:47 Sister Cystic fibrosis pt. added direct ly (03/17) API-13 Not available 03/17/2023 02:01:42 Father Substance abuse pt. added direct ly (03/17) API-13 Not available 03/17/2023 01:58:17 Maternal Grandfather Obesity pt. added direct ly (03/17) API-13 Not available 03/17/2023 01:59:16 Maternal Grandfather Liver problem pt. added direct ly (03/17) API-13 Not available 03/17/2023 02:00:04 Maternal Grandfather Hypertensive disorder pt. added direct ly (03/17) API-13 Not available 03/17/2023 02:00:21 Maternal Grandfather Myocardial infarction pt. added direct ly (03/17) API-13 Not available 03/17/2023 02:00:52 Maternal Grandfather Disease of liver pt. added direct ly (03/17) API-13 Not available 03/17/2023 02:01:33 Paternal Grandfather Multiple sclerosis pt. added direct ly (03/17) API-13 Not available 03/17/2023 01:59:32 Paternal Grandfather Liver problem pt. added direct ly (03/17) API-13 Not available 03/17/2023 02:00:04 Paternal Grandfather Disease of liver pt. added direct ly (03/17) API-13 Not available 03/17/2023 02:01:33 Notes:Father alive(56yrs) 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 Condition Response Anxiety Disorder Y Acid Reflux (GERD) Y Headaches Y Hypertension Y Gynecological HistoryNo gynecological history recorded. Obstetrics History GPAL:G 0 P 0 0 0 0 Past Encounters Encounter ID Performer Location Encounter Start Date Encounter Closed Date Diagnosis/Indication Diagnosis SNOMED-CT Code Diagnosis ICD10 Code Diagnosis Note [id number] Oscar Bowman MD [facility] [address] [place] [address] [place] [address] 08/05/2022 10:00:05 08/05/2022 10:46:52 Lumbar radiculopathy 819278142 M54.16 Spinal nishant nosis of lumbar region 00403644 M99.53 Lumbar dis cogenic pain 135590884 M51.26 Ligamentous strain 85852 6003 R29.898 Myofascial pain 49307087 9 M79.10 Spinal nishant nosis in cervical region 86667243 M99.51 Cervical radiculopathy 07918009 M54.12 [id number] CHRISTINE LOOMIS PA-C [facility] [address] [place] [address] [place] [address] 08/26/2022 10:09:15 08/26/2022 16:06:28 Lumbar radiculopathy 492829941 M54.16 Spinal nishant nosis of lumbar region 35578392 M99.53 M48.061 Lumbar dis cogenic pain 430467911 M51.26 Ligamentous strain 28926 6003 R29.898 Myofascial pain 88169892 9 M79.10 Spinal nishant nosis in cervical region 52266908 M99.51 M48.02 Cervical radiculopathy 42798119 M54.12 [id number] Oscar Bowman MD [facility] [address] [place] [address] 12/30/2022 13:34:40 12/30/2022 14:53:00 Lumbar radiculopathy 981244401 M54.16 Spinal nishant nosis of lumbar region 31101495 M99.53 M48.061 Lumbar dis cogenic pain 238178293 M51.26 Ligamentous strain 62261 6003 R29.898 Myofascial pain 53332464 9 M79.10 Spinal nishant nosis in cervical region 66637237 M99.51 M48.02 Cervical radiculopathy 32819305 M54.12 Spinal enthesopathy 1031 7009 M46.03 [id number] Noemi Ahmadi NP [facility] [address] [facility],[place] [address] 03/19/2023 10:46:42 03/19/2023 12:27:10 Hematochezia 144687767 K92.1 Of her 5 year history of episodes of hematochez ia off and on. Most recent episode 3 weeks ago, large amount which lasted a 5-6 days. Plan for CBC today. Recommend colonoscop y to evaluate for internal hemorrhoid s, polyps, other. Chronic id iopathic constipation 20152730 K59.04 Failed treatment with MiraLax, fiber, OTC laxatives. Recommend trial of Linzess 72 mcg and 145 mcg, samples 8 days each provided to patient clinic today. Will send prescripti on based on response to sample medication . Gastro-eso phageal reflux disease with esophagitis 751014072 K21.00 Three month history increased GERD symptoms. Failed treatment Pepcid. Recommend Protonix 40 mg p.o. daily for treatment. Recommend EGD to evaluate for esophagiti s, hiatal hernia, H pylori, other. Nausea 798485360 R11.0 History of cholecyste ctomy. Plan for EGD to evaluate for H pylori, gastritis, PUD. [id number] Noemi Ahmadi NP [facility] [address] [address] 05/14/2023 13:27:23 05/14/2023 14:48:06 Gastro-esophageal reflux disease with esophagitis 049276855 K21.00 reflux esophagiti s confirmed on pathology 04/03/2023 . Symptoms remain well controlled with use of Pantoprazo le at this time. Recommend continue reflux precaution s. Left lower quadrant pain 244191277 R10.32 Colonoscop y with negative random colon biopsies 04/02/23. Recommend xray abd MAURIZIO to r/o stool burden. She has been evaluated by Senior Escrow Officer and taisha cano laproscopi c evaluation for endometrio sis. Chronic id iopathic constipation 46462705 K59.04 Improved with use of Linzess 72 mcg however experience d recurrent constipati on, advised to increase linzess dose and now diarrhea 3-4 times per day. Recommend to continue Linzess 72 mcg daily. Recommend Xray abd to further evaluate as above. Health Concerns Section Related Observation LastModified by Organization Detai ls LastModified Time None Recorded Concern Status LastModified by Organization Details LastModified Time None Recorded Advance Directives Directive None Recorded Payers Insurance Date Sequence Insurance Name Policy Number Policy Echols Covered Member ID Echols Member ID Guarantor Name 05/15/2024 1 [employer] (POS) Garrett Godinez [id number] Jillian Godinez 05/15/2024 1 [employer] (POS) Garrett Godinez [id number] Jillian Godinez Notes Date Note Type Note Provider Name and Address Organization Details Recorded Time 2 text/html Mrs. Godinez was referred by Dr. Persaud for ligamentous sprains of the lumbar spine. The patient has been participating in chiropractics for the last 5-6 months to help manage her pain which has been mildly helpful. She notes doing at home exercises/stretches as well with minimal benefit. The patient's pain is in the low back and neck with radicular pain. She states that she experiences bilateral hip pain with long periods of walking/standing and that certain movements cause numbness/tingling to the BLE. She notes that by the end of the day, the pain becomes stabbing/sharp. The neck pain starts at the base of the skull and radiates in between the shoulder blades with numbness/tingling to the fingertips. The pain makes it difficult for her to take care of her kids without increasing the pain. She states that the pain affects her daily life significantly and would like to discuss injections to manage her pain. Initial complaint: chronic low back and neck painOnset: 5+ yearsContext: worsening over timeCharacter: radiating, dull, aching, throbbing, stabbingLocation: low back, BLE, hips, neckDuration:Initial Intensity: 6/10Worse: lifting, carrying, rotation, bending, walking, standing, houseworkBetter: restAssociated symptoms: Denies saddle anaesthesia, denies acute bowel/bladder changes, denies acute power loss.ADLs: The patient's pain interferes with daily chores, exercise, sleep, relationships, and walking.Current Pain Medications: nonePrior Pain Medications: noneNSAIDS/OTC: not helpfulNon-intervention al Tx: chiropractics - 5/6 monthsPhysical Therapy: noneInterventional Tx: noneSurgery: noneImaging/Studies: x-rays, MRIs of lumbar/cervical spine Oscar Bowman MD [address] [facility], [place], [address], [facility] & [place] 08/07/2022 09:42:01 2 text/html Mrs. Godinez was referred by Dr. Persaud for ligamentous sprains of the lumbar spine. The patient has been participating in chiropractic for the last 5-6 months with minimal benefit. The patient has also been performing at-home exercises/stretches. The patient presents today via televideo 2 weeks S/P lumbar epidural. The patient denies experiencing significant improvement in pain or function following the procedure. The patient continues to complain of low back and buttock pain with radiation down the BLE. The patient also complains of neck pain with radiation down the BUE with numbness/tingling. Today the pain level is a 6/10. Initial complaint: chronic low back and neck painOnset: 5+ yearsContext: worsening over timeCharacter: radiating, dull, aching, throbbing, stabbingLocation: low back, BLE, hips, neckDuration:Initial Intensity: 6/10Worse: lifting, carrying, rotation, bending, walking, standing, houseworkBetter: restAssociated symptoms: Denies saddle anaesthesia, denies acute bowel/bladder changes, denies acute power loss.ADLs: The patient's pain interferes with daily chores, exercise, sleep, relationships, and walking.Current Pain Medications: nonePrior Pain Medications: noneNSAIDS/OTC: not helpfulNon-intervention al Tx: chiropractics - 5/6 monthsPhysical Therapy: noneInterventional Tx: noneSurgery: noneImaging/Studies: x-rays, MRIs of lumbar/cervical spine CHRISTINE LOOMIS PA-C [address] [place], [address], [facility] - [place] & [place] 08/26/2022 15:23:38 3 text/html Mrs. Godinez was referred by Dr. Persaud for ligamentous sprains of the lumbar spine. The patient has been participating in chiropractic for the last 5-6 months with minimal benefit. The patient has also been performing at-home exercises/stretches. The patient presents to the clinic today for pain reassessment. The patient denies experiencing significant improvement in pain or function following the lumbar epidural injection. The patient continues to complain of low back and buttock pain with radiation down the BLE. The patient also complains of neck pain with radiation down the BUE with numbness/tingling. She also states the neck pain radiates up into her skull. Today the pain level is a 8/10. Initial complaint: chronic low back and neck painOnset: 5+ yearsContext: worsening over timeCharacter: radiating, dull, aching, throbbing, stabbingLocation: low back, BLE, hips, neckDuration:Initial Intensity: 6/10Worse: lifting, carrying, rotation, bending, walking, standing, houseworkBetter: restAssociated symptoms: Denies saddle anaesthesia, denies acute bowel/bladder changes, denies acute power loss.ADLs: The patient's pain interferes with daily chores, exercise, sleep, relationships, and walking.Current Pain Medications: nonePrior Pain Medications: noneNSAIDS/OTC: not helpfulNon-intervention al Tx: chiropractics - 5/6 monthsPhysical Therapy: noneInterventional Tx: noneSurgery: noneImaging/Studies: x-rays, MRIs of lumbar/cervical spine Oscar Bowman MD [address] [facility], [place], [address], [facility] & [place] 12/31/2022 13:22:17 3 text/html A 27-year-old female past medical history cholecystectomy, allergies, appendectomy and hernia repair. Patient presents to clinic today for evaluation of hematochezia. Episodes off and on for 5 years or more. Most recent episode 3 weeks ago, large amount, lasting 5-6 days. Alternating constipation and diarrhea with bowel movements every 4 days with use of MiraLax. Failed treatment with fiber supplements and laxatives. She has been experiencing increased GERD symptoms and nausea for the past 3 months. Failed treatment with Pepcid. She drinks primarily soda and coffee. Noemi Ahmadi NP [address] [place] [address], [address], [place], [address], [facility] & [place] 03/19/2023 11:47:36 3 text/html Patient returns clinic today for follow-up post upper and lower endoscopy completed 04/02/2023. EGD was significant for nonerosive gastritis. Pathology confirmed mild chronic gastritis negative H pylori or celiac as well as reflux esophagitis. She continues pantoprazole 40 mg daily with controlled GERD symptoms. Colonoscopy appeared normal with negative random colon biopsies. Prescribed Linzess 72 mcg for treatment of constipation however had an episode of uncontrolled constipation which she believes secondary to eating ice cream every day with her kids. Linzess was increased at that time, now reports diarrhea 3-4 times per day for the past 2 weeks. Also reports left lower quadrant abdominal pain. She has been evaluated by Senior Escrow Officer, they are considering laproscopic evaluation for endometriosis. Noemi Ahmadi, JACKIE [address] [place] [address], [address], [place], [address], [facility] - [place] & [place] 05/14/2023 14:45:24 OBGyn Episode No OBEpisode recorded.
--- OUTSIDE RECORDS SUMMARY | 2025-04-06 10:54 | XMS_ITS | Patient Health Record ---
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 Name Role Phone Johnathan Duenas Primary Care Provider Radha Awad Unavailable [phone] Allergies No Known Allergies Results Component Value Reference Range Notes ultrasound : thyroid Reviewed date:01/05/2025 01:01:13 PM Interpretation:homogenous thyroid Performing Lab: Notes/Report: homogenous thyroid P-TSH Reviewed date:01/05/2025 01:01:14 PM Interpretation:0.17 Performing Lab: Notes/Report: Test performed by [facility] [address] [place] [address] , [facility] [place] [address] Nick Brady MD, Dampener Operator CLIA: [id number] TSH 0.17 0.43-5.25 mU/L P-Thyroid Antibody Panel (TA BS) Reviewed date:01/05/2025 01:01:14 PM Interpretation:Normal Performing Lab: Notes/Report: Test performed by [facility] [address] [place] [address] , [facility] [place] [place] [address] Nick Brady MD, Dampener Operator CLIA: [id number] Thyroid Peroxidase Antibody 17 <9-34 IU/mL An [...] methods or kits cannot be directly compared. P-T4 Free (thyroxine) Reviewed date:01/05/2025 01:01:14 PM Interpretation:Normal Performing Lab: Notes/Report: Test performed by [facility] [address] [place] [address] , [address], [place] [address] Nick Brady MD, Dampener Operator CLIA: [id number] Thyroxine Free (free T4) 1.50 0.86-1.76 ng/dL [facility] Review[facility] date:01/05/2025 01:01:14 PM Interpretation:CRP 0.71 Performing Lab: Notes/Report: Test performed by [facility] [address] [place] [address] , [address], [place] [address] Nick Brady MD, Dampener Operator CLIA: [id number] Erythrocyte Sedimentation Rate (ESR), Automated 11 <26 mm/hr Rheumatoid Factor 12.0 <14.1 IU/mL C-Reactive Protein (CRP) 0.71 <0.50 mg/dL Antinuclear Antibodies (LATRICIA) Screen, Reflex LATRICIA 9 Panel Negative Negative This test is performed by Multiplex Bead Immunoassay methodology. Antinuclear Antibodies (LATRICIA) Result Note SEE COMMENT For positive Autoantibodies, please refer to the interpretive chart here: [email or web address] CCP Antibodies <0.5 <0.5-3.0 U/mL P-Comprehensive Metabolic Pa helio (CMP) Reviewed date:01/05/2025 01:01:13 PM Interpretation:Normal Performing Lab: Notes/Report: Test performed by [facility] [address] [place] [address] , [address], [place] [address] Nick Brady MD, Dampener Operator CLIA: [id number] Sodium 141 135-145 mmol/L Potassium 4.2 3.5-5.3 [...] 0.7 <0.2-1.2 mg/dL A/G Ratio 1.4 1.1-2.5 CBC Venipuncture (in house) Reviewed date:12/30/2024 09:22:03 [...] - 38 platlet 208 100 - 400 P-T4 Free (thyroxine) Reviewed date:01/27/2025 02:33:57 PM Interpretation:2.1 Performing Lab: Notes/Report: Test performed by [facility] [address] , [place] [id number] Nick Brady MD, Dampener Operator CLIA: [id number] Thyroxine Free (free T4) 2.10 0.86-1.76 ng/dL P-Total T3 Reviewed date:01/27/2025 02:33:57 PM Interpretation:Normal Performing Lab: Notes/Report: Test performed by [facility] [address] [place] [address] , [place] [address] Nick Brady MD, Dampener Operator CLIA: [id number] Total T3 1.98 0.80-2.00 ng/mL P-TSH Reviewed date:01/27/2025 02:33:57 PM Interpretation:0.01 Performing Lab: Notes/Report: Test performed by [facility] [address] [place] [address] , [address], [place] [address] Nick Brady MD, Dampener Operator CLIA: [id number] TSH 0.01 0.43-5.25 mU/L CBC Fingerstick (in house) Reviewed date:07/13/2024 11:14:12 [...] - 400 CBC Fingerstick (in house) Reviewed date:09/01/2024 04:21:31 PM Interpretation: Performing Lab: Notes/Report: wbc 6.9 3.5 - 10 lym 29.3% 15 - 50 mid 6.6% 2 - 15 gran 64.1% 35 - 80 rbc 4.92 3.5 - 5.5 hgb 14.6 11.5 - 16.5 hct 44.4 35 - 55 mcv 90.2 75 - 100 mch 29.7 25 - 35 mchc 32.9 31 - 38 plat 156 100 - 400 Rapid Strep- Inhouse Reviewed date:02/10/2025 11:39:14 AM [...] - 38 plat 177 100 - 400 Reason For Referral No Information Medications Medication SIG (Take, Route, Frequency, Duration) Notes Start Date End Date Status Propylthiouracil 50 MG 1 tablet Orally T 02/15/2025 Active Multi Vitamin - 1 tablet Orally Once a day for 30 day(s) Active Vilazodone HCl 10 MG 1 tablet with food Orally Once a day for 30 day(s) Active busPIRone HCl 10 MG 1 tablet Orally Twic e a day Active Triamcinolone Acetonide 0.1 % 1 applicat ion Externally Two times a Week 01/26/2025 Active Immunizations Vaccine Route Administration Date Status Comme nts COVID 19 Pfizer Unknown 07/17/2021 Administered COVID 19 Pfizer Unknown 08/06/2021 Administered Tetanus Tdap-Adacel (over 7yrs) Unknown 04/02/2021 Admi nistered Problems Problem Type SNOMED Code ICD Code Onset Dates Problem Status W/U Status Risk Notes Problem 07564599 Essential hypertension (I10) Active confirmed Problem 94865148 Hyperthyroidism (E05.90) Active confirmed Problem 485015617 Depression with anxiety (F41.8) Active confirmed Problem 00521087 Other chronic pa in (G89.29) Active confirmed Problem 15530245 Rhinitis, unspecified type (J31.0) Active confirmed Problem 8770440 Thyromegaly (E01.0) Active confirmed Problem 808581932 Non morbid obesi ty (E66.9) Active confirmed Problem 42124213 Primary hypertension (I10) Active confirmed Vital Signs Heart Rate 80 /min 02/18/2025 Blood pressure diastolic 70 mm Hg 02/18/2025 Height 61.5 in 02/18/2025 Blood pressure systolic 110 mm Hg 02/18/2025 Weight 218.8 lbs 02/18/2025 BMI 40.67 kg/m2 02/18/2025 Encounters Encounter Location Date Provider Diagnosis [facility] [address] [place], [place] [id number] 05/12/2024 Johnathan Zamora Essential hypertensi on I10 [facility] [address] [place], [place] [id number] 07/13/2024 Johnathan Zamora Cough, unspecified t ype R05.9 [facility] [address] [place], [place] [id number] 09/01/2024 Johnathan Zamora Acute URI J06.9 and Tinea corporis B35.4 [facility] [address] [place], [place] [id number] 11/10/2024 Johnathan Zamora Essential hypertensi on I10 [facility] [address] [place] [id number] 11/15/2024 Johnathan Zamora Herpes zoster withou t complication B02.9 [facility] [address] [place], [place] [id number] 12/29/2024 Radha Crowdy Myalgia M79.10 ; Arthralgia, unspecified joint M25.50 ; Heart palpitations R00.2 ; Hair loss L65.9 ; Other fatigue R53.83 ; Elevated liver enzymes R74.8 ; Thyromegaly E01.0 and Rash R21 [facility] [address] [place], [place] [id number] 01/26/2025 Johnathan Zamora Low TSH level R79.89 and Rash R21 [facility] [address] [place] [id number] 02/10/2025 Radha Crowdy Acute otitis media, right H66.91 ; Acute URI J06.9 and Body aches R52 [facility] [address] [place] [id number] 02/18/2025 Johnathan Zamora Acute diarrhea R19.7 and Hyperthyroidism E05.90 [facility] [address] [place], [place] [id number] 01/03/2025 Radha Crowdy [facility] [address] [place] [id number] 01/27/2025 Johnathan Zamora [facility] [address] [place] [id number] 02/07/2025 Johnathan Zamora [facility] [address] [place] [id number] 02/15/2025 Johnathan Zamora [facility] [address] [place] [id number] 02/16/2025 Johnathan Zamora [facility] [address] [place] [id number] 02/28/2025 Johnathan Zamora [facility] [address] [place] [id number] 01/28/2025 Johnathan Zamora Assessments Encounter Date Diagnosis (ICD Code) Assessment Notes Treatment Notes Treatment Clinical Notes Section Notes 12/29/2024 Arthralgia, unspecified joint (ICD-10 - M25.50) 12/29/2024 Myalgia (ICD-10 - M79.10) 01/26/2025 Rash (ICD-10 - R21) 01/26/2025 Low TSH level (ICD-10 - R79.89) 02/10/2025 Acute otitis media, right (ICD-10 - H66.91) 02/10/2025 Acute URI (ICD-10 - J06.9) 02/18/2025 Hyperthyroidism (ICD-10 - E05.90) 02/18/2025 Acute diarrhea (ICD-10 - R19.7) Patient will call if symptms do not continue to improve and resolve 05/12/2024 Essential hypertension (ICD-10 - I10) Patient is doing well off of medication 07/13/2024 Cough, unspecified type (ICD-10 - R05.9) 09/01/2024 Tinea corporis (ICD-10 - B35.4) 09/01/2024 Acute URI (ICD-10 - J06.9) 11/10/2024 Essential hypertension (ICD-10 - I10) Patient is doing well off of medication., Blood pressure journal 11/15/2024 Herpes zoster without complication (ICD-10 - B02.9) 02/10/2025 Body aches (ICD-10 - R52) Pt has not yet stopped the methimazole. She will stop it and see if her symptoms improve. 12/29/2024 Heart palpitations (ICD-10 - R00.2) 12/29/2024 Hair loss (ICD-10 - L65.9) 12/29/2024 Other fatigue (ICD-10 - R53.83) 12/29/2024 Elevated liver enzymes (ICD-10 - R74.8) 12/29/2024 Thyromegaly (ICD-10 - E01.0) 12/29/2024 Rash (ICD-10 - R21) Plan Of Treatment Pending Test Test Name Order Date P-Monospot 04/30/2023 Next Appt Details Provider Name:Johnathan Maldonado ry, 05/11/2025 03:00:00 PM, [address], [place], [id number], Insurance Providers Payer Name Payer Address Payer Phone Subscriber Number Group Number Insured Name Patient Relationship to Insured Coverage Start Date Coverage End Date [facility]ES [facility] [address] [place] [address] [phone] [id number] ISABELA GODINEZ Self - patient is the insured Medical (General) History Surgical History Surgery Date(Month/Year) Tonsillectomy 2000 Bilateral Ankles 2018 Cholecystectomy 2017 [facility] 2014 D & C 2019 Tubal Ligation 2024 Hospitalization History Reason Date(Month/Year)
== END 2025-04-05 23:59 | disposition home or self-care (01) ==
LOC: LAB.DROPOF 04-06 10:50
PROVIDERS: PCP Student in an Organized Health Care Education/Training Program; Visit Provider Student in an Organized Health Care Education/Training Program
DX: R05.9 Cough, unspecified (principal); R53.83 Other fatigue
CPT/HCPCS: 87631

== ENCOUNTER 2025-06-15 13:39 | Outpatient (CLI) | payer BC, SELFPAY ==
--- OUTSIDE RECORDS SUMMARY | 2025-05-11 11:00 | XMS_ITS ---
Author Organization [facility] Address [address] [facility] [address] [place] [id number] Care Team Providers Care Fixed Income Trading Vice President Name Role Phone Johnathan Duenas Primary Care [...] Interpretation:Normal Performing Lab: Notes/Report: Test performed by [facility] [address] [place], [place] [address] [place] , [address], [place] [address] Nick Brady MD, Bandage Winding Machine Operator CLIA: [id number] Amylase 42 28-100 U/L P-Antistreptolysin O AB Reviewed date:05/13/2025 09:49:59 AM Interpretation:Normal Performing Lab: Notes/Report: Test performed by [facility] [address] [place], [place] [address] [place] , [address], [place] [address] Nick Brady MD, Bandage Winding Machine Operator CLIA: [id number] Antistreptolysin O AB 175.0 <20-200.0 IU/mL P-Comprehensive Metabolic Pa helio (CMP) Reviewed date:05/13/2025 09:49:59 AM Interpretation:bili 1.4 Performing Lab: Notes/Report: Test performed by [facility] [address] [place] [address] , [place] [address] Nick Brady MD, Bandage Winding Machine Operator CLIA: [id number] Sodium 137 135-145 mmol/L Potassium 4.1 3.5-5.3 [...] Interpretation:Reactive Performing Lab: Notes/Report: Test performed by [facility] [address] [place] [address] [place] [address] Nick Brady MD, Bandage Winding Machine Operator CLIA: [id number] Cytomegalovirus (CMV) Antibody, IgG Reactive Non-Reactive This [...] >8 Performing Lab: Notes/Report: Test performed by [facility] [employer] [address] [place] [address] , [address], [place] [address] Nick Brady MD, Bandage Winding Machine Operator CLIA: [id number] Deidre Dewey Virus (EBV) VCA Antibodies IgG >8.0 <0.9 AI Deidre Dewey Virus (EBV) VCA Antibodies IgM 0.3 <0.9 AI P-Sed Rate (ESR) Reviewed date:05/13/2025 09:50:00 AM Interpretation:Normal Performing Lab: Notes/Report: Test performed by [facility] [address] , [address], [place] [address] Nick Brady MD, Bandage Winding Machine Operator CLIA: [id number] Erythrocyte Sedimentation Ra te (ESR), Automated 18 <26 mm/hr P-Lipase Reviewed date:05/13/2025 09:50:00 AM Interpretation:Normal Performing Lab: Notes/Report: Test performed by [facility] [address] [place] [address] , [address], [place] [address] Nick Brady MD, Bandage Winding Machine Operator CLIA: [id number] Lipase 19.8 13.0-60.0 U/L REASON FOR VISIT 6 months Medications Medication SIG (Take, Route, Fr equency, Duration) Notes Start Date End Date Status Multi Vitamin - 1 tablet Orally Once a day; Duration: 30 day(s) Active Nystatin 284163 UNIT/GM 1 application Ex ternally Twice a [...] Status W/U Status Risk Notes Problem Thrombocytopenia (704134712) Thrombocytopenia (D69.6) Active confirmed Vital Signs Blood pressure systolic 110 mm Hg 05/11/20 25 Blood pressure diastolic 70 mm Hg 025 Heart Rate 80 /min 05/11/2025 Height 61.5 in 05/11/2025 Weight 221 lbs 05/11/2025 BMI 41.08 kg/m2 05/11/2025 Encounters Encounter Location Date Provider Diagnosis [facility] [address] [place], [place] [phone] 05/11/2025 Johnathan Duenas Fever, unspecified R 50.9 [...] Sig Start Date Stop Date Notes Nystatin 249811 UNIT/GM 1 application Ex ternally Twice a day 05/11/2025 Omeprazole 40 MG 1 capsule 1/2 to 1 h our before morning meal Orally Once a day; Duration: 30 days 05/11/2025 Next Appt Details Follow Up: via phone to repo rt progress, Reason: Progress Notes * JOYCELYN GODINEZOB:1995 (29 yo F)Acc No.[id number]:05/11/2025 Progress Notes Patient: MOHAN HELMSNE Provider: Ramesh Duenas M.D. :1995 A ge:29 Y S ex:Female Date:05/11/2025 Address:[place], [id number] Subjective: * Chief Complaints: * 1 . [...] pain. Pt states she did go to [facility] [place]05 and tested negative [...] onsillectomy 1999, Bilateral Ankles 2018, Cholecystectomy 2016, [place] Teeth 2013, D & C 2019, Tubal [...] phone encounter 6.?Skin rash? Start Nystatin Cream, 801415 UNIT/GM, 1 application, Externally, Twice a day, 30 grams, Refills 1. ? * Procedure Codes: 8 5025 CBC WITH AUTO DIFF, 91376 STREP A ASSAY W/OPTIC, Modifiers: QW , 1036F TOBACCO NON-USER, 3074F SYST BP LT 130 MM HG, 3078F DIAST BP < 80 MM HG * Follow Up: v ia phone to report progress * Images: Billing Information: * Visit Code: 64034 Office Visit, Est Pt., Level 4. * Procedure Codes: 82205 CBC WITH AUTO DIFF. 46090 STREP A ASSAY W/OPTIC. Modifiers: QW 1036F TOBACCO NON-USER. 3074F SYST BP LT 130 MM HG. 3078F DIAST BP < 80 MM HG. * Electronic signature of Sharda Duenas MD on 06/15/2025 at 02:02 PM EDT Sign off status: Pending * Provider: Ramesh Duenas M.D. Date: 0 05/11/2025 Generated for Printi ng/Faxing/eTransmitting on: 0 06/15/2025 02:02 PM EDT History and Physical Notes * HPI (History of Present Illness) Category Sub-Category Detail Notes Category Not es ENT/respiratory sore throat Pt complains of sore throat for over a month. Associated with fever, nausea and stomach pain. Pt states she did go to [facility] 04/05 and tested negative [...]
--- OUTSIDE RECORDS SUMMARY | 2025-05-31 11:45 | XMS_ITS ---
Author Organization [facility] Address 1210 [facility] [address] [place] [phone] Care Team Providers Care Fireman Name Role Phone Johnathan Duenas Primary Care [...] Provider Diagnosis [place] [address] [facility] [address] [place] [phone] 05/31/2025 Johnathan Duenas Thrombocytopenia D69 .6 Assessments Encounter Date Diagnosis (ICD Code) Assessment Notes Treatment Notes Treatment Clinical Notes Section Notes 05/31/2025 Thrombocytopenia (ICD-10 - D69.6) Plan Of Treatment No Information Progress Notes * MOHAN GODINEZHIRALOB:1995 (29 yo F)Acc No.[id number]:05/31/2025 Patient: ISABELA HELMS Provider: Ramesh Duenas M.D. :1995 A ge:29 Y S ex:Female Date:05/31/2025 Address:[id number] Subjective: * Chief Complaints: * 1 . [...] Procedure Codes: 3 6416 CAPILLARY BLOOD DRAW, 65880 CBC WITH AUTO DIFF * Images: Billing Information: * Visit Code: * Procedure Codes: 20415 CAPILLARY BLOOD DRAW. 64328 CBC WITH AUTO DIFF. * Electronic signature of Sharda Duenas MD on 06/15/2025 at 02:02 PM EDT Sign off status: Pending * Provider: Ramesh Duenas M.D. Date: 05/31/2025 Generated for Reggie stone/Leslie/Bill on: 06/15/2025 02:02 PM EDT
--- NOTE | 2025-06-15 13:41 | XR_ITS ---
FINAL REPORT CLINICAL HISTORY: Evaluation of Pain in left foot COMPARISON: None FINDINGS: LEFT FOOT Three views of the left foot demonstrate orthopedic screws and subtalar fusion. There is no acute fracture or dislocation. The visualized joint spaces are normally aligned. The soft tissues are unremarkable. IMPRESSION: No acute bony abnormality. Reviewed, Interpreted and Dictated by Nicho Jimenez MD Transcribed by Ariana Ross Authenticated and [facility]
--- NOTE | 2025-06-15 13:41 | XR_ITS ---
FINAL REPORT CLINICAL HISTORY: right foot pain, hx of right foot ORIF COMPARISON: None FINDINGS: RIGHT FOOT 3 views of the right foot were obtained. There is no acute fracture or dislocation. Visualized joint spaces are normally aligned. Soft tissues are unremarkable. IMPRESSION: No acute bony abnormality. Reviewed, Interpreted and Dictated by Nicho Jimenez MD Transcribed by Ariana Ross Authenticated and [facility]
--- NOTE | 2025-06-15 13:41 | XR_ITS ---
FINAL REPORT CLINICAL HISTORY: Evaluation of pain in right ankle COMPARISON: None FINDINGS: RIGHT ANKLE 3 views of the right ankle were obtained. There is a sideplate and screws securing the distal fibula. The ankle mortise is intact. There is a transverse anchor securing the distal tibia and fibula. There is no acute fracture or dislocation. The ankle mortise is intact. There is mild soft tissue swelling about the ankle. IMPRESSION: No acute bony abnormality. Reviewed, Interpreted and Dictated by Nicho Jimenez MD Transcribed by Ariana Ross Authenticated and [facility]
--- NOTE | 2025-06-15 13:41 | XR_ITS ---
FINAL REPORT CLINICAL HISTORY: left ankle pain, history of ankle/foot surgery COMPARISON: None FINDINGS: LEFT ANKLE Three views demonstrate orthopedic screws and subtalar fusion. There is a well corticated ossific density inferior to the medial malleolus measuring 7 mm, probably sequela from old trauma. There is no acute fracture or dislocation. The soft tissues are unremarkable. IMPRESSION: No acute bony abnormality. Reviewed, Interpreted and Dictated by Nicho Jimenez MD Transcribed by Ariana Ross Authenticated and [facility]
--- OUTSIDE RECORDS SUMMARY | 2025-06-15 14:01 | XMS_ITS | Clinical Summary ---
Author Organization [facility] Address [address] [place] [address] Care Team Providers Care Packer Insulation Name Role Phone Provider, No Known Primary Care Provider Unavail able Allergies No known active allergies Medications aspirin 81 MG EC tablet Take 1 tablet by mouth Daily. Active 28-0.8 MG tablet Take 1 tablet by mouth Daily. 4 Active famotidine (PEPCID) 10 MG tablet Take 1 tablet by mouth Daily. Active NON FORMULARY Metamusal fiber gummy Active Active Problems Problem Noted Date Diagnosed Date Parvovirus infection, maternal, antepartum 04/07 Assessment & Plan (04/07/2024 5:01 PM EDT): Parvovirus B19 is a nonenveloped DNA virus that exclusively infects humans. The virus is found in respiratory tract secretions and is likely spread by sneezing and contact with infected objects. Incubation is 4 to 14 days. The illness presents with cold-like symptoms including malaise and fever which are followed by an intensely red rash on the cheeks. After infection, parvovirus B19 replication occurs primarily in erythrocytes and erythroblasts and can lead to anemia. Once the rash has developed, the viremia has abated and the patient is no longer infectious. Parvovirus may cause anemia (and sometimes cardiomyopathy) leading to nonimmune hydrops (NIH). The highest risk to the nonimmune (IgG and IgM absent) woman occurs after exposure to a child living within the same household. An exposed mother may be tested for anti-parvovirus IgM which indicates a recent infection. Anti-parvovirus B19 IgM production begins after the 3rd day of rash patients with a new infection. Serial ultrasounds should be performed up to 8 to 12 weeks after infection to detect the development of anemia or hydrops. The middle cerebral artery (MCA) blood velocity is used as an indicator of blood viscosity and Nisha et al (Ultrasound Obstet Gynecol 1995;5:400) have developed curves for the estimation of anemia. These curves are gestational age-dependent and allow assessment from 18-35 weeks' gestation. The MCA velocity technique allows us to monitor the progress of a complicated by reduced red blood cell production secondary to parvovirus infection without resorting to amniocentesis. Based on these curves, an MCA systolic peak velocity of > 1.5 MoM for gestational age carries the highest risk for significant anemia. If the peak MCA systolic velocity is above 1.5 MoM for gestational age, intervention is generally suggested (amniocentesis or blood sampling) to more directly assess anemia. If hydrops develops, consideration should be given to blood sampling and intravascular transfusion or delivery if the gestational age is conducive to high extrauterine survival. Today MCA dopplers were consistently above 1.5 MoMs As such, I have scheduled Ms Cisneros with [facility] for possible PUBS/IUT procedure tomorrow. She will be at their ultrasound unit tomorrow at 0800. D/w Dr Maryr Vogt. Records faxed. 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 Breech presentation on examination, fetus 1 2 10/2020 Twin , dichorionic/ diamniotic, unspecified trimester 12/18/2020 11/13/2020 Twin , dichorionic/ diamniotic, unspecified trimester 11/13/2020 Morbid obesity with BMI of 40.0-44.9, adult 10/2020 Anovulatory cycle 07/17/2020 Immunizations Immunization Administration Dates Next Due Tdap 04/02/2021 Family History 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 Relation Name Comments Diabetes Maternal Aunt Nusrat Hypertension Maternal Aunt Nusrat Hypertension Maternal Grandfather Aristeo Diabetes Maternal Grandmother Alida Diabetes Mother Steffi Hypertension Mother Steffi Prostate cancer Paternal Grandfather Magdiel Bipolar disorder Sister Depression Sister Fibromyalgia Sister Gestational diabetes Sister Breast cancer Neg Hx Colon cancer Neg Hx Ovarian cancer Neg Hx Uterine cancer Neg Hx Relation Name Status Comments Maternal Aunt Nusrat Maternal Grandfather Aristeo Maternal Grandmother Alida Mother Steffi Paternal Grandfather Magdiel Sister 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 Tobacco Use Types Packs/Day Years Used Date Smoking Tobacco: Former Cigarettes Q uit: 10/27/2015 Smokeless Tobacco: Never Tobacco Cessation:Counseling Given: Not Answered Alcohol Use Standard Drinks/Week Comments Yes 4 (1 standard drink = 0.6 oz pur e alcohol) Occasional Overall Financial Resource Strain (CARDIA) Answe r Date Recorded How hard is it for you to pa y for the very basics like food, housing, medical care, and heating? Not hard at all 11/13/2020 PHQ-2 Answer Date Recorded Retired Total Score 14 07/16/2021 [facility] - Occupational Stress Questionnaire Answer Date Recorded Do you feel stress - tense, restless, nervous, or anxious, or unable to sleep at night because your mind is troubled all the time - these days? Only a little 07/17/2020 Exercise Vital Sign Answer Date Recorde d On average, how many days pe r week do you engage in moderate to strenuous exercise (like a brisk walk)? 7 days 07/17/2020 On average, how many minutes do you engage in exercise at this level? 30 min 07/17/2020 Hunger Vital Sign Answer Date Recorded Within the past 12 months, y ou worried that your food would run out before you got the money to buy more. Never true 11/13/19 21 Within the past 12 months, t he food you bought just didn't last and you didn't have money to get more. Never true 11/13/2020 PRAPARE - Transportation Answer Date Re corded In the past 12 months, has l ack of transportation kept you from medical appointments or from getting medications? No 10/27 In the past 12 months, has l ack of transportation kept you from meetings, work, or from getting things needed for daily living? No 11/13/2020 [place] Depression Scale Answer Date Recorded [place] Depression Scale Total 5 06/05/2021 The thought of harming myself has occurred to me . 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 Not on file Not on file Not on file Last Filed Vital Signs Vital Sign Reading Time Taken Comments Blood Pressure 96/65 04/07/2024 11:07 AM EDT Pulse 74 06/07/2021 8:00 AM EDT Temperature 37.1 C (98.7 F) 06/07/2021 8:00 AM EDT Respiratory Rate 16 06/07/2021 8:00 AM EDT Oxygen Saturation 99% 06/07/2021 8:00 AM EDT Inhaled Oxygen Concentration - - Weight 103 kg (226 lb) 04/07/2024 11:07 AM EDT Height 154.9 cm (5' 1 ) 04/07/2024 11:11 AM EDT Body Mass Index 42.7 04/07/2024 11:07 AM EDT Plan of Treatment Health Maintenance Due Date Last Done Comments ANNUAL PHYSICAL 07/17/2020 Annual Gynecologic Pelvic and Breast Exam 04/08/2024 04/07/2023 COVID-19 Vaccine ( season) 2024 08/06/2021, 07/17/2021 INFLUENZA VACCINE 07/27/2025 TDAP/TD VACCINES (2 - Td or Tdap) 04/02/2031 04/02/2021 HEPATITIS C SCREENING Completed 11/13/2020 CHLAMYDIA SCREENING Discontinued 04/07/2023, 11/14/2020 Pneumococcal Vaccine 0-49 Aged Out No longer eligible based on patient's age to complete this topic Procedures Procedure Name Priority Date/Time Associated Diagnosis Comments LIQUID-BASED PAP SMEAR WITH HPV GENOTYPING IF ASCUS, [facility] ([facility]) Routine 04/07/2023 8:19 AM EDT Pap test, as part of routine gynecological examination OBSTETRIC PANEL Routine 11/13/2020 12:00 AM EST from Last 3 Months or Most Recently Relevant to Health Maintenance Results * LIQUID-BASED PAP SMEAR WITH HPV GENOTYPING IF ASCUS ([facility]) (04/07/2023 8:19 AM EDT) Reference Lab Report [facility] [address] [place] [address] or [phone] Wong Wall M.D., C2 Tactical Analysis Technician PATIENT NAME [facility] CARD[facility]O [id number] AGE SEX SSN CLIENT REF # [facility] 25 1995 F [id number] [facility] ZACARIAS TROTTER REQUESTING Edis [place] [address] ALCIRA ORTIZ DATE COLLECTED DATE RECEIVED DATE REPORTED 04/07/2023 04/07/2023 04/08/2023 ThinPrep Pap with Cytyc Imaging DIAGNOSIS: Negative for intraepithelial lesion or malignancy Multiple factors can influence accuracy of Pap tests; therefore, screening at regular intervals is necessary for early cancer detection. COMMENT: Benign cellular changes associated with inflammation are present. SPECIMEN ADEQUACY: SATISFACTORY FOR EVALUATION Transformation zone is present. SOURCE OF SPECIMEN: CERVICAL/ENDOCERV ICAL SLIDES: 1 CLINICAL HISTORY: Pap test, as part of routine gynecological examination Chlamydia / Gonorrhea CHLAMYDIA TRACHOMATIS: Negative NEISSERIA GONORRHOEAE: Negative The Aptima Combo 2 assay is a target amplification nucleic acid probe test that utilizes target capture for the in vitro qualitative detection and differentiation of ribosomal RNA from Chlamydia trachomatis and Neisseria gonorrhoeae to aid in the diagnosis of chlamdial and gonococcal disease using the [employer] system. HAND STITCHER: LEXI SAUCEDA (ASCP) CPT CODES: 36759, [id number], [id number] 04/08/2023 2:46 PM EDT [facility] ThinPrep Vial Cervix uteri structure / Unknown Collection / Unknown 04/07/2023 8:19 AM EDT 04/07/2023 8:19 AM EDT Alcira Ortiz MD PATHOLOGY/CYTOLOGY ORDER CALLUM Final Result [facility]
[address] [place] [address], * Obstetric Panel (11/13/2020 12:00 AM EST) Hepatitis B Surface Ag Negative Negative [facility] Hep C Virus Ab <0.1 0.0 - 0.9 s/co ratio [facility] Comment: Negative: < 0.8 Indeterminate: 0.8 - 0.9 Positive: > 0.9 The CDC recommends that a positive HCV antibody result be followed up with a HCV Nucleic Acid Amplification test (567149). RPR Non Reactive Non Reactive [facility] Rubella Antibodies, IgG 3.05 Immune >0.99 index [facility] Comment: Non-immune <0.90 Equivocal 0.90 - 0.99 Immune >0.99 ABO Type AB [facility] Rh Factor Positive [facility] Comment: Please note: Prior records for this patient's ABO / Rh type are not available for additional verification. Antibody Screen Negative Negative [facility] WBC 7.2 3.4 - 10.8 x10E3/uL [facility] RBC 4.16 3.77 - 5.28 x10E6/uL [facility] Hemoglobin 12.2 11.1 - 15.9 g/dL [facility] Hematocrit 35.6 34.0 - 46.6 % [facility] MCV 86 79 - 97 fL [facility] MCH 29.3 26.6 - 33.0 pg [facility] MCHC 34.3 31.5 - 35.7 g/dL [facility] RDW 13.0 11.7 - 15.4 % [facility] Platelets 223 150 - 450 x10E3/uL [facility] Neutrophil Rel % 77 Not Estab. % [facility] Lymphocyte Rel % 16 Not Estab. % [facility] Monocyte Rel % 6 Not Estab. % [facility] Eosinophil Rel % 1 Not Estab. % [facility] Basophil Rel % 0 Not Estab. % [facility] Neutrophils Absolute 5.5 1.4 - 7.0 x10E3/uL [facility] Lymphocytes Absolute 1.2 0.7 - 3.1 x10E3/uL [facility] Monocytes Absolute 0.4 0.1 - 0.9 x10E3/uL [facility] Eosinophils Absolute 0.1 0.0 - 0.4 x10E3/uL [facility] Basophils Absolute 0.0 0.0 - 0.2 x10E3/uL [facility] Immature Granulocyte Rel % 0 Not Estab. % [facility] Immature Grans Absolute 0.0 0.0 - 0.1 x10E3/uL [facility] 11/13/2020 11/13/2020 Narrative [facility]) - 11/15/2020 6:09 AM EST Performed at: - [facility] [place] [address] [place], [place] [id number] Mixer Runner: Micah Warner PhD, Phone: [phone] Alcira Ortiz MD LAB BLOOD ORDERABLES Fin al Result Performing Organization Address City/State/[facility] Co de Phone Number [facility] [place] ([facility]) [address] [phone], [facility] [address] [place] [address], from Last 3 Months or Most Recently Relevant to Health Maintenance Insurance [facility] PPO Advance Directives * CPR (Attempt to Resuscitate) (Latest Code Status on File) Date Activated Date Inactivated Comments 06/05/2021 6:00 AM 06/07/2021 4:15 PM Question Answer Comments Code Status (Patient has no pulse and is not breathing): CPR (Attempt to Resuscitate) Medical Interventions (Patie nt has pulse or is breathing): Full Care Teams Packer Insulation Relationship Specialty Start Date End [place], [place] [address] PCP - General 12/04/20
--- OUTSIDE RECORDS SUMMARY | 2025-06-15 14:02 | XMS_ITS | Clinical Summary ---
Author Organization Healthcare [place] [address] Care Team Providers Care Manager Wealth Management Name Role Phone Pcp, No Primary Care [...] C Screening 1995 [facility]-/Child/Adol SDOH Screenings 1997 [facility]-Varicella Vaccines (1 of 2 - 13+ 2-dose series) 2010 [facility]- SDOH Screenings 2015 [facility]-Adult SDOH Screenings 2015 [facility]-Hepatitis B Vaccines (1 of 3 - 19+ 3-dose series) 2016 [facility]-[id number]-06 Vaccine (3 - 2023- season) 2024 08/06/2021, 07/17/2021 HPV Vaccines (1 - 3-dose SCDM series) 2024 [facility]-Influenza Vaccine (#1) 2025 [facility]-Pap Smear 04/07/2026 04/07/2023 [facility]-DTaP,Tdap,and Td Vaccines (3 - Td or Tdap) 06/01/2034 06/01/2024, [...] patient's age to complete this topic Insurance Care Teams Manager Wealth Management Relationship Specialty Start Date [place] [address] PCP - General Family Medicine 04/08/24
--- OUTSIDE RECORDS SUMMARY | 2025-06-15 14:02 | XMS_ITS | Clinical Summary ---
Author Organization [facility] Address [address] [place] [id number] Care Team Providers Care Sales Representative Jewelry Name Role Phone Unknown, Attending Provider Primary [...] therelease of HIV test results or diagnoses. 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 No 05/07/2024 Yearly Questionnaire Answer [...] Date Last Done Comments Hepatitis C Screening ([employer]) 1997 Depression Screening 2015 Immunization: Hepatitis B (1 of 3 - 19+ 3-dose series) 2016 Cervical Cancer Screening/Pap Smear (Humans[employer]) 2018 Immunization: COVID-19 ( season) 2024 08/06/2021, 07/17/2021 Renal Function/GFR 05/07/2025 05/07/2024, 05/06/2024 Diabetes Screening 05/17/2025 05/17/2024 Immunization: Influenza ([employer]) (#1) 2025 Immunization: DTaP/Tdap/Td (5 - Td or [...] Challenge, 1 Hour (05/17/2024 11:30 AM EDT) Pathologist [facility] Glucose Challenge, 1 Hr 132 mg/dL 05/17/2024 12:49 PM EDT [facility] Comment: 1 HOUR GLUCOSE CHALLENGE INTERPRETATION: Women/ Non Adult - 50 gram glucose load screening for gestational diabetes Expected normal response: A one hour glucose result of less than 140 mg/dL. Plasma 05/17/2024 11:3 0 AM EDT 05/17/2024 12:11 PM EDT us Timoteo Sosa MD LAB BLOOD ORDERABLES F inal Result [facility] [address] * (ABNORMAL) Comprehensive Metabolic Panel, STAT (05/07/2024 5:46 PM EDT) Pathologist [facility] Sodium 138 133 - 146 mmol/L 05/07/2024 6:30 PM EDT [facility] Potassium 3.6 3.5 - 5.3 mmol/L 05/07/2024 6:30 PM EDT [facility] Chloride 107 98 - 110 mmol/L 05/07/2024 6:30 PM EDT [facility] CO2 21 21 - 33 mmol/L 05/07/2024 6:30 PM EDT [facility] Anion Gap 10 3 - 16 mmol/L 05/07/2024 6:30 PM EDT [facility] BUN 4(L) 7 - 25 mg/dL 05/07/2024 6:30 PM EDT [facility] Creatinine 0.47(L) 0.60 - 1.30 mg/dL 05/07/2024 6:30 PM EDT [facility] Glucose 174(H) 70 - 100 mg/dL 05/07/2024 6:30 PM EDT [facility] Calcium 8.7 8.6 - 10.3 mg/dL 05/07/2024 6:30 PM EDT [facility] Total Bilirubin 0.4 0.0 - 1.5 mg/dL 05/07/2024 6:30 PM EDT [facility] AST 14 13 - 39 U/L 05/07/2024 6:30 PM EDT [facility] ALT 10 7 - 52 U/L 05/07/2024 6:30 PM EDT [facility] Alkaline Phosphatase 56 36 - 125 U/L 05/07/2024 6:30 PM EDT [facility] Total Protein 6.5 6.4 - 8.9 g/dL 05/07/2024 6:30 PM EDT [facility] Albumin 3.4(L) 3.5 - 5.7 g/dL 05/07/2024 6:30 PM EDT [facility] Osmolality, Calculated 287 278 - 305 mOsm/kg 05/07/2024 6:30 PM EDT [facility] EGFR >90 05/07/2024 6:30 PM EDT [facility] Comment: As of 2021, [...] MD LAB BLOOD ORDERABLES Final Resul t [facility] [address] * , HIV 1/2 Ab+Ag with Reflex (05/06/2024 9:10 PM EDT) HIV 1+2 AB/AGN Nonreactive Nonreactive 05/06/2024 10:08 PM EDT [facility] Serum 05/06/2024 9:10 PM EDT 05/06/2024 9:21 PM EDT Narrative [facility] - 05/06/2024 10:08 PM EDT HIV-1 p24 Antigen and HIV-1/HIV-2 Antibody not detected. Fernando Leonard MD LAB BLOOD ORDERABLES Final Re sult Performing Organization Address City/[facility]/ZIP Co de Phone Number [facility] [address] [facility]. [address] from Last 3 Months or Most Recently Relevant to Health Maintenance Insurance [employer] [employer] [id number] BLUE ACCESS Advance Directives For more information, please contact: [phone] * Full Code (Latest Code Status on File) Date Activated Date Inactivated Comments 05/06/2024 8:33 PM 05/09/2024 5:04 PM Care Teams Sales Representative Jewelry Relationship Specialty Start Date End Date Unknown, Attending Provider PCP - General 05/06/24
--- OUTSIDE RECORDS SUMMARY | 2025-06-15 14:02 | XMS_ITS | Clinical Summary ---
Author Organization [facility] Address [address] [place] [id number] Care Team Providers Care Plate Colorer Name Role Phone Johnathan Duenas M.D. Primary Care Provider [phone] Source Comments [facility] is fully rolled out with thefollowing exceptions:[facility] Allergies No known active allergies Medications aspirin (ASA) 81 MG chewable tablet Chew 1 tablet 1 time a day. Active Vit-Iron Carbonyl-FA ( vitamin) 29-1 MG tablet Take 1 tablet by mouth 1 time a day. Active famotidine (PEPCID) 10 MG tablet Take 1 tablet by mouth 1 time a day. Active [facility] [facility] chewable tablet Chew. Acti ve IRON-FOLIC ACID PO Take by mouth. Active guaiFENesin-dext romethorphan (ROBITUSSIN-DM) 100-10 MG/5ML liquid Take by mouth every 6 hours. Active Active Problems Patient Care Coordination No te Formatting of this note migh t be different from the original. Jillian Cisneros is a 28 y.o. with an Estimated Date of Delivery: 08/23/24. She is 26w1d on 05/18/24. Jillian Cisneros was referred to [facility] on 05/18/[address] Casper for evaluation and potential treatment of MCA ( parvovirus infection, ascites (suspected bowel perforation). Significant findings include ultrasound completed on 05/17/[address] Casper's office reporting: Abdominal ascites improved bowel is echogenic in the setting of concern for prior bowel perforation MCA doppler is normal at 1.13 NIKO: 15.45 BPP 06/03 Placenta: posterior. GTT: 132 Genetic Testing: Low risk cfDNA, negative CF carrier screening Height: 5'1 Current Weight: 225lb BMI: 42.66 *Per referral: We first saw this patient last Friday, May 07, 2024. The patient was referred to us from . Dx: Parvovirus (patient was exposed to parvo on 02/21 from daughter) Ascites, elevated MCA dopplers Patient was admitted to L&D from 05/06-05/09/24. We were prepared to do a PUBS/IUT for patient on 05/07, but dopplers improved and we decided to wait on surgery. We saw the patient yesterday in clinic and would like to refer her for testing. Dr. Casper would like her to return on 05/31/24 at 28w gestation. We have her scheduled for a echo on 05/31 at 0800 and ultrasound at 1030 with us to follow. She will also return at 30w on 06/14. We are requesting this team meeting and testing (MRI, ultrasound) with pediatric surgery, neonatology and [facility] ~ 32 weeks gestation, week of Labor Day 06/29/24 * 06/14 @ @ 30 0/: Ultrasound 1. Saenz fetus in cephalic presentation. 2. Estimated weight is 1410 gm, which is at the 34th percentile for selected gestational age. This growth profile is within normal limits. 3. Mildly echogenic bowel, no appreciable ascites. 4. Amniotic fluid index (NIKO) is 16.1 cm. NIKO is within normal range of measurement. 5. Maternal uterus and adnexal structures are normal in appearance. 6. Biophysical profile is 06/03. ascites Overview Note: (last update: 06/14/2024) Patient was transferred to for concerns for hydrops secondary to anemia as she had previous infection with parvovirus this . Upon arrival to , she had normal MCA's and detailed anatomy with concerns for suspected bowel perforation, NOT anemia She was counseled regarding this and PUBS was deferred. She had negative CF carrier screening and low risk cfDNA 05/17/2024 ascites improved on US today 05/31/2024: echo normal at [facility], will be for 32 weeks team meeting for timing of delivery discussion and counseling. Ascites unchanged on ultrasound today. 06/14/2024 unable to appreciate ascites on US today. If reassuring team meeting and imaging, will plan to transition care back to primary OB Initial Evaluation 06/29 @ 32 11/02: MRI: MPRESSION 1. Saenz intrauterine in the vertex position. 2. No anomaly identified; specifically normal appearance of the bowel, without MR evidence meconium peritonitis or pseudocyst. 3. No evidence of hydrops. Ultrasound: Impression ========= - Single living fetus with a gestational age of 32w 1d based on the reported clinical dates in the vertex position. - Estimated weight 2002 g corresponds to the 53%. - Amniotic fluid: normal amount - No anomaly identified, specifically without evidence of meconium peritonitis or pseudocyst. Normal sonographic appearance of the bowel. - No ascites identified or evidence of hydrops. - Normal MCA and UA Dopplers. [facility] PLAN OF CARE Jillian Cisneros was seen today in the [facility] for a diagnosis of previous parvovirus infection, ascites, and suspected bowel perforation. Based on the recommendations, the following has been designated as the plan of care: Follow up with Dr. Fournier's office for twice weekly testing (with weekly ultrasounds and weekly NST's) to closely monitor your baby for the duration of your . This includes amniotic fluid level, doppler studies of the umbilical artery (UA), ductus venosus (DV), and mid cerebral artery (MCA). Your baby's growth will be checked every 3-4 weeks during the ultrasound Delivery via Induction of Labor (IOL) and a vaginal delivery at [facility] is anticipated at 39 weeks (if yours and Zac's health remains stable-which is routine OB standards); with a low threshold after 37 weeks Get set up with a benefits sales consultant to work with to help your milk come in Does an amnio procedure need to be scheduled for this patient? No PATIENT TO BE SCHEDULED FOR FOLLOW UP WITHIN: No follow up at [facility] needed Problem Noted Date Diagnosed Date Parvovirus B19 infection in mother during pregna ncy 06/29/2024 Resolved Problems Problem Noted Date Diagnosed Date Resolved Date ascites causing disproportion 06/29/2024 06/29/2024 Encounters Date Type Department Care Team Description 03/15/2025 Clinical Note [facility] [address] [place] [id number] Marry Fernandez from Last 3 Months 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 Tobacco Use Types Packs/Day Years Used Date Smoking Tobacco: Never Assessed Intimate Partner Violence Answer Date R ecorded Safe in relationship? (up to 18) Not on file 06/29/2024 If you are in a relationship , do you feel safe in that relationship? Yes 06/29/2024 Safety and Environment Answer Date Chan rded Abuse or neglect worry (Parent/Guardian) Not on file 06/29/2024 Adult hurting you or family (11-18) Not on file 06/29/2024 Someone touched you in a sexual way? (11-18) Not on file 06/29/2024 Is someone hurting your or your family? No 06/29/2024 Historical abuse worry Not on file If you have firearms in the home, are they all in locked storage AND unloaded? Not on file 06/29/2024 Comments No Sex and Gender Information Value Date Recorded Sex Assigned at Not on file Legal Sex Female 3:10 PM EDT Gender Identity Not on file Sexual Orientation Not on file Last Filed Vital Signs Vital Sign Reading Time Taken Comments Blood Pressure 111/68 06/29/2024 11:51 AM EDT Pulse 82 06/29/2024 11:51 AM EDT Temperature 36.6 C (97.9 F) 06/29/2024 11:51 AM EDT Respiratory Rate - - Oxygen Saturation 99% 06/29/2024 11: 51 AM EDT Inhaled Oxygen Concentration - - Weight 106.2 kg (234 lb 2.1 oz) 024 11:51 AM EDT Height 154.9 cm (5' 1 ) 06/29/2024 11:5 1 AM EDT Body Mass Index 44.24 06/29/2024 11:51 AM EDT Plan of Treatment Health Maintenance Due Date Last Done Comments MMR IMMUNIZATION (1 of 1 - Standard series) 1998 VARICELLA IMMUNIZATION (1 of 2 - 13+ 2-dose series) 2010 HEPATITIS B IMMUNIZATION (1 of 3 - 19+ 3-dose series) 2016 COVID-19 Vaccine (3 - 2023-2 5 season) 2024 08/06/2021, 07/17/2021 HPV IMMUNIZATION (1 - 3-dose SCDM series) 2024 DTAP/Tdap/Td IMMUNIZATION (3 - Td or Tdap) 12/02/2024 06/01/2024, 04/02/2021 AMB SEASONAL FLU VACCINE (#1) 08/27/2025 HIB IMMUNIZATION Aged Out No longer e ligible based on patient's age to complete this topic IPV IMMUNIZATION Aged Out No longer e ligible based on patient's age to complete this topic MCV4 IMMUNIZATION Aged Out No longer eligible based on patient's age to complete this topic MENINGOCOCCAL B VACCINE Aged Out No l onger eligible based on patient's age to complete this topic PNEUMOCOCCAL IMMUNIZATION Aged Out No longer eligible based on patient's age to complete this topic Respiratory Syncytial Virus (RSV) <20mo Aged Out No longer eligible b ased on patient's age to complete this topic Insurance [employer] NON-TRADITIONAL Care Teams Plate Colorer Relationship Specialty Start Date End Date Johnathan Duenas M.D. [address] [place] [address] PCP - General External Family Practice 05/30/24
--- OUTSIDE RECORDS SUMMARY | 2025-06-15 14:02 | XMS_ITS | Encounter Summary ---
Author Organization [facility] Address [address] [place] [address] Care Team Providers Care Cooling Machine Operator Name Role Phone Provider, No Known Primary Care Provider Unavail able Reason for Visit * Reason Onset Date Comments Med Refill 10/27/2022 Encounter Details Date Type Department Care Team (Late st Contact Info) Description 10/27/2022 Refill [facility] OBGYN [address] [place] [address] Henrique Barney MD [address] [facility] [address] [place] [address] 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 Tobacco Use Types Packs/Day Years Used Date Smoking Tobacco: Former Cigarettes Q uit: 2017 Smokeless Tobacco: Never Alcohol Use Standard Drinks/Week Comments Not Currently 0 (1 standard drink = 0.6 oz pur e alcohol) Overall Financial Resource Strain (CARDIA) Answe r Date Recorded How hard is it for you to pa y for the very basics like food, housing, medical care, and heating? Not hard at all 11/13/2020 PHQ-2 Answer Date Recorded Retired Total Score 14 07/16/2021 [facility] of Occupat ional Health - Occupational Stress [...] things needed for daily living? No 11/13/2020 [place] Depression Scale Answer Date Recorded [place] Depression Scale Total 5 06/05/2021 The thought [...] file Not on file Not on file documented as of this encounter Plan of Treatment Not on file documented as of this encounter Visit Diagnoses Not on filedocumented in this encounter Care Teams Cooling Machine Operator Relationship Specialty Start Date End Date Provider, No Known [facility] [place] [address] PCP - General 12/04/20 documented as of this encounter
--- OUTSIDE RECORDS SUMMARY | 2025-06-15 14:02 | XMS_ITS | Patient Health Record ---
Author Organization [facility] Address [address] [facility] [address] [place] [id number] Care Team Providers Care Hand Trucker Name Role Phone Johnathan Duenas Primary Care Provider [phone] Adama Ballard Unavailable [phone] PranayRadha grace Unavailable [phone] Allergies No Known Allergies Results Component Value [...] - 38 plat 186 100 - 400 P-TSH Reviewed date:01/05/2025 01:01:14 PM Interpretation:0.17 Performing Lab: Notes/Report: Test performed by [email or web address] [address] [place] [address] , [address], [place] [address] Nick Brady MD, Manager Of Hospital CLIA: [id number] TSH 0.17 0.43-5.25 mU/L P-Thyroid Antibody Panel (TA BS) Reviewed date:01/05/2025 01:01:14 PM Interpretation:Normal Performing Lab: Notes/Report: Test performed by [email or web address] [address] [place] [address] , [address], [place] [address] Nick Brady MD, Manager Of Hospital CLIA: [id number] Thyroid Peroxidase Antibody 17 <9-34 IU/mL An [...] Interpretation:Normal Performing Lab: Notes/Report: Test performed by [email or web address] [address] [place], [place] [address] [place] , [address], [place] [address] Nick Brady MD, Manager Of Hospital CLIA: [id number] Thyroxine Free (free T4) 1.50 0.86-1.76 ng/dL P-Arthritis Panel, [employer] Reviewed date:01/05/2025 01:01:14 PM Interpretation:CRP 0.71 Performing Lab: Notes/Report: Test performed by [email or web address] [address] [place] [address] , [address], [place] [id number] Nick Brady MD, Manager Of Hospital CLIA: [id number] Erythrocyte Sedimentation Rate (ESR), Automated 11 <26 mm/hr Rheumatoid Factor 12.0 <14.1 IU/mL C-Reactive Protein (CRP) 0.71 <0.50 mg/dL Antinuclear Antibodies (LATRICIA) Screen, Reflex LATRICIA 9 Panel Negative Negative This test is performed by Multiplex Bead Immunoassay methodology. Antinuclear Antibodies (LATRICIA) Result Note SEE COMMENT For positive Autoantibodies, please refer to the interpretive chart here: [email or web address].[email or web address]/w p-content/uploads/LATRICIA-Inter pretive-Chart.pdf CCP Antibodies <0.5 <0.5-3.0 U/mL P-Comprehensive Metabolic Pa helio (CMP) Reviewed date:01/05/2025 01:01:13 PM Interpretation:Normal Performing Lab: Notes/Report: Test performed by [email or web address] [address] [place], [place] [address] [place] , [address], [place] [address] Nick Brady MD, Manager Of Hospital CLIA: [id number] Sodium 141 135-145 mmol/L Potassium 4.2 3.5-5.3 [...] <0.2-1.2 mg/dL A/G Ratio 1.4 1.1-2.5 CBC Fingerstick (in house) Reviewed date:09/01/2024 04:21:31 [...] - 38 plat 156 100 - 400 CBC Fingerstick (in house) [...] - 38 plat 102 100 - 400 P-Sed Rate (ESR) Reviewed date:05/13/2025 09:50:00 AM Interpretation:Normal Performing Lab: Notes/Report: Test performed by [employer] [facility] , [address], [place] [address] Nick Brady MD, Manager Of Hospital CLIA: [id number] Erythrocyte Sedimentation Rate (ESR), Automated 18 <26 mm/hr P-Deidre Dewey Virus (EBV) V CA Antibodies IgG IgM Reviewed date:05/13/2025 09:50:00 AM Interpretation:EBV IgG >8 Performing Lab: Notes/Report: Test performed by [email or web address] [address] [place] [address] [place] [address] Nikc Brady MD, Manager Of Hospital CLIA: [id number] Deidre Dewey Virus (EBV) VCA Antibodies IgG >8.0 <0.9 AI Deidre Dewey Virus (EBV) VCA Antibodies IgM 0.3 <0.9 AI P-Cytomegalovirus (CMV) Anti bodies, IgG/IgM Reviewed date:05/13/2025 09:49:59 AM Interpretation:Reactive Performing Lab: Notes/Report: Test performed by [email or web address] [address] [place] [address] [place] [address] Nick Brady MD, Manager Of Hospital CLIA: [id number] Cytomegalovirus (CMV) Antibody, IgG Reactive Non-Reactive This test is performed by the [employer] Cytomegalovirus IgG assay. Results from assays of other manufacturers cannot be used interchangeably. Non-reactive CMV IgG-specific antibodies not detected. Borderline Recommend collection of a second sample, within 2 weeks, for repeat testing. Reactive CMV IgG-specific antibodies detected. Cytomegalovirus (CMV) Antibodies, IgM Reactive Non-Reactive This test is performed by the [employer] Cytomegalovirus IgM assay. Results from assays of other manufacturers cannot be used interchangeably. Non-Reactive CMV IgM-specific antibodies not detected. Borderline Recommend collection of a second sample, within 2 weeks, for repeat testing. Reactive CMV IgM-specific antibodies detected. P-Comprehensive Metabolic Pa helio (CMP) Reviewed date:05/13/2025 09:49:59 AM Interpretation:bili 1.4 Performing Lab: Notes/Report: Test performed by [email or web address] [address] [place] [address] [address], [place] [address] Nick Brady MD, Manager Of Hospital CLIA: [id number] Sodium 137 135-145 mmol/L Potassium 4.1 3.5-5.3 [...] 1.4 <0.2-1.2 mg/dL A/G Ratio 1.3 1.1-2.5 P-Antistreptolysin O AB Reviewed date:05/13/2025 09:49:59 AM Interpretation:Normal Performing Lab: Notes/Report: Test performed by [email or web address] [address] [place] [address] , [place] [address] Nick Brady MD, Manager Of Hospital CLIA: [id number] Antistreptolysin O AB 175.0 <20-200.0 IU/mL P-Amylase Reviewed date:05/13/2025 09:49:59 AM Interpretation:Normal Performing Lab: Notes/Report: Test performed by [email or web address] [address] [place] [address] , [address], [place] [address] Nick Brady MD, Manager Of Hospital CLIA: [id number] Amylase 42 28-100 U/L CBC Fingerstick (in house) Reviewed date:05/11/2025 05:37:30 [...] - 38 plat 91 100 - 400 Rapid Strep- Inhouse Reviewed date:05/11/2025 05:36:52 PM Interpretation: Performing Lab: Notes/Report: strep test Neg Rapid Strep- Inhouse Reviewed date:02/10/2025 11:39:14 AM [...] - 38 plat 177 100 - 400 P-Lipase Reviewed date:05/13/2025 09:50:00 AM Interpretation:Normal Performing Lab: Notes/Report: Test performed by [email or web address] [address] [place] [address] , [address], [place] [address] Nick Brady MD, Manager Of Hospital CLIA: [id number] Lipase 19.8 13.0-60.0 U/L P-T4 Free (thyroxine) Reviewed date:01/27/2025 02:33:57 PM Interpretation:2.1 Performing Lab: Notes/Report: Test performed by [employer] [address] , [address], [place] [address] Nick Brady MD, Manager Of Hospital CLIA: [id number] Thyroxine Free (free T4) 2.10 0.86-1.76 ng/dL P-Total T3 Reviewed date:01/27/2025 02:33:57 PM Interpretation:Normal Performing Lab: Notes/Report: Test performed by [email or web address] [address] [place] [address] , [address], [place] [address] Nick Brady MD, Manager Of Hospital CLIA: [id number] Total T3 1.98 0.80-2.00 ng/mL P-TSH Reviewed date:01/27/2025 02:33:57 PM Interpretation:0.01 Performing Lab: Notes/Report: Test performed by [email or web address] [address] [place] [address] Gabi Novoa, [address], [place] [address] Nick Brady MD, Manager Of Hospital CLIA: [id number] TSH 0.01 0.43-5.25 mU/L ultrasound : thyroid Reviewed date:01/05/2025 01:01:13 PM Interpretation:homogenous thyroid Performing Lab: Notes/Report: homogenous thyroid CBC Venipuncture (in house) Reviewed date:12/30/2024 09:22:03 [...] - 38 platlet 208 100 - 400 Reason For Referral Diagnosis 1 Rash (R21) Referral Organization [facility] Referring Provider First Name Johnathan Referring Provider Last Name Yulissa Referring Provider Speciality Family [facility]da Referred Provider Herber Ojeda Referred Provider Specialty Dermatology General Notes Zuleyka Lin 2024 10:44:17 AM > faxed to Dr. Ojeda at [facility] Referral Priority Routine Medications Medication SIG (Take, Route, Fr equency, Duration) Notes Start Date End Date Status Multi Vitamin - 1 tablet Orally Once a day; Duration: 30 day(s) Active Ubrelvy 100 MG 1 tablet as needed, may take second dose at least 2 hours after first dose up to 2 tablets per day as needed Orally Once a day Active Ketoconazole 2 % 1 application Format Proofreader ally Once a day 05/20/2025 Active Diflucan 100 MG 1 tablet Orally shobha y; Duration: 14 days 05/26/2025 Active busPIRone HCl 10 MG 1 tablet Orally Twice a day Active Omeprazole 40 MG 1 capsule 1/2 to 1 h our before morning meal Orally Once a day; Duration: 30 days Active Ondansetron HCl 4 MG 1 tablet Orally 3 times a day As needed 05/13/2025 Active traZODone HCl 50 MG 1 tablet at bedtime as needed Orally Once a day Active Immunizations Vaccine Route Administration Date Status Comme nts COVID 19 Pfizer Unknown 07/17/2021 Administered COVID 19 Pfizer Unknown 08/06/2021 Administered Tetanus Tdap-Adacel (over 7yrs) Unknown 04/02/2021 Admi nistered Problems Problem Type SNOMED Code ICD Code Onset Dates Problem Status W/U Status Risk Notes Problem Essential hypertension (62810585) Essential hypertension (I10) Active confirmed Problem Hyperthyroidism (86830237) Hyperthyroidism (E05.90) Active confirmed Problem Mixed anxiety and depressive disorder (209363798) Depression with anxiety (F41.8) Active confirmed Problem Chronic pain (48634456) Other chronic pain (G89.29) Active confirmed Problem Thrombocytopenia (150318883) Thrombocytopenia (D69.6) Active confirmed Problem Chronic rhinitis (29167474) Rhinitis, unspecified type (J31.0) Active confirmed Problem Thyromegaly (0546084) Thyromegaly (E01.0) Active confirmed Problem Obesity (669720721) Non morbid o besity (E66.9) Active confirmed Problem Primary hypertension (44541988) Primary hypertension (I10) Active confirmed Vital Signs Heart Rate 80 /min 05/11/2025 Blood pressure diastolic 70 mm Hg 05/11/2025 Height 61.5 in 05/11/2025 Blood pressure systolic 110 mm Hg 05/11/2025 Weight 221 lbs 05/11/2025 BMI 41.08 kg/m2 05/11/2025 Encounters Encounter Location Date Provider Diagnosis [facility] [address] [place], [place] [id number] 07/13/2024 Johnathan Peekskill Cough, unspecified t ype R05.9 [facility] [address] [facility] [address] [place], [place] [id number] 09/01/2024 Johnathan Peekskill Acute URI J06.9 and Tinea corporis B35.4 [facility] [address] [place], [place] [id number] 11/10/2024 Johnathan Peekskill Essential hypertensi on I10 [facility] [address] [place], [place] [id number] 11/15/2024 Johnathan Peekskill Herpes zoster withou t complication B02.9 [facility] [address] [place], [place] [id number] 12/29/2024 Radha Pranaydy Myalgia M79.10 ; Arthralgia, unspecified joint M25.50 ; Heart palpitations R00.2 ; Hair loss L65.9 ; Other fatigue R53.83 ; Elevated liver enzymes R74.8 ; Thyromegaly E01.0 and Rash R21 [facility] [address] [place], [place] [id number] 01/26/2025 Johnathan Peeks[place] Low TSH level R79.89 and Rash R21 [facility] [address] [place] [id number] 02/10/2025 Radha Crowdy Acute otitis media, right H66.91 ; Acute URI J06.9 and Body aches R52 [facility] [address] [place], [place] [id number] 02/18/2025 Johnathan Peeks[place] Acute diarrhea R19.7 and Hyperthyroidism E05.90 [facility] [address] [place] [id number] 05/11/2025 Johnathan Pee[place] Fever, unspecified R 50.9 ; Sorethroat J02.9 ; Epigastric abdominal pain R10.13 ; Heartburn R12 ; Thrombocytopenia D69.6 ; Family history of breast cancer in female Z80.3 and Skin rash R21 [facility] [address] [place], [place] [id number] 05/31/2025 Johnathan Pee[place] Thrombocytopenia D69 .6 [facility] [address] [place] [id number] 01/03/2025 Radha Crowdy [facility] [address] [place] [id number] 01/27/2025 Johnathan Peekskill [facility] [address] [place] [id number] 02/07/2025 Johnathan Peekskill [facility] [address] [place] [id number] 02/15/2025 Johnathan Peekskill [facility] [address] [place] [id number] 02/16/2025 Johnathan Peekskill [facility] [address] [place] [id number] 02/28/2025 Johnathan Peekskill [facility] [address] [place] [id number] 05/13/2025 Johnathan Peekskill [facility] [address] [place] [id number] 05/20/2025 Johnathan Pee[place] Skin rash R21 [facility] [address] [place] [id number] 05/20/2025 Johnathan Peekskill [facility] [address] [place] [id number] 05/26/2025 R Randall Ballard [facility] [address] [place] [id number] 06/13/2025 Johnathan [place]ee[place] Rash R21 [facility] [address] [place] [id number] 01/28/2025 Johnathan Peekskill [facility] [address] [place] [id number] 04/30/2025 Johnathan Peekskill Assessments Encounter Date Diagnosis (ICD Code) Assessment [...] do not continue to improve and resolve 05/11/2025 Fever, unspecified (ICD-10 - R50.9) 05/11/2025 Sorethroat (ICD-10 - J02.9) 05/20/2025 Skin rash (ICD-10 - R21) 05/31/2025 Thrombocytopenia (ICD-10 - D69.6) 06/13/2025 Rash (ICD-10 - R21) 07/13/2024 Cough, unspecified type (ICD-10 - R05.9) 09/01/2024 Tinea corporis (ICD-10 - B35.4) 09/01/2024 Acute URI (ICD-10 - J06.9) 11/10/2024 Essential hypertension (ICD-10 - I10) Patient is doing well off of medication., Blood pressure journal 11/15/2024 Herpes zoster without complication (ICD-10 - B02.9) 05/11/2025 Epigastric abdominal pain (ICD-10 - R10.13) 02/10/2025 Body aches (ICD-10 - R52) Pt has not yet stopped the methimazole. She will stop it and see if her symptoms improve. 12/29/2024 Heart palpitations (ICD-10 - R00.2) 05/11/2025 Heartburn (ICD-10 - R12) 12/29/2024 Hair loss (ICD-10 - L65.9) 05/11/2025 Thrombocytopenia (ICD-10 - D69.6) 12/29/2024 Other fatigue (ICD-10 - R53.83) 12/29/2024 Elevated liver enzymes (ICD-10 - R74.8) 05/11/2025 Family history of breast cancer in female (ICD-10 - Z80.3) 05/11/2025 Skin rash (ICD-10 - R21) 12/29/2024 Thyromegaly (ICD-10 - E01.0) 12/29/2024 Rash (ICD-10 - R21) Plan Of Treatment Pending Test Test Name Order Date P-Monospot 04/30/2023 Insurance Providers Payer Name Payer Address Payer Phone Subscriber Number Group Number Insured Name Patient Relationship to Insured Coverage Start Date Coverage End Date [facility] [employer] [address] [place] [address] [id number] ISABELA GODINEZ Self - patient is the insured Medical (General) History Surgical History Surgery Date(Month/Year) Tonsillectomy 2000 Bilateral Ankles 2019 Cholecystectomy 2017 [employer] [facility] 2014 D & C 2020 Tubal Ligation 2024 Hospitalization History Reason Date(Month/Year)"
--- OUTSIDE RECORDS SUMMARY | 2025-06-15 14:03 | XMS_ITS | Encounter Summary ---
Author Organization [facility] Address [address] [place] [address] Care Team Providers Care Billet Assembler Name Role Phone Johnathan Duenas M.D. Primary Care Provider [phone] Reason for Visit * Reason Onset Date Comments Financial - Insurance 05/18/2024 Schedule Appointment 05/19/2024 Encounter Details Date Type Department Care Team (Late st Contact Info) Description 05/18/2024 Telephone [facility] [address] [place] [phone] [place]iana [place] Financial - Insurance; Schedule Appointment 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 Tobacco Use Types Packs/Day Years Used Date Smoking Tobacco: Never Assessed Comments No Sex and Gender Information Value Date Recorded Sex Assigned at Not on file Legal Sex Female 3:10 PM EDT Gender Identity Not on file Sexual Orientation Not on file documented as of this encounter Miscellaneous Notes * Telephone Encounter - Renetta Toscano - 09/06/2024 11:48 AM EST EOP: 08.14.2024 * Telephone Encounter - Jay De Leon - 05/20/2024 8:09 AM EDT Images from the original note were not included. This entry is pertaining to for appts below: Authorization request status: No Authorization Needed For Provider(s): Lilliana For CPT Codes: 36380v0, 96292f5, 65571s0, 69211u6, 78456i5, 28747, 88176, 04168, 28294, 22397, 38051, 32741, 26409, 83660, 77514 Qty x 4, 70375, 66612, 48179, 13191, Qty X1 Diagnosis Code: O35.8XX0 For Dates of Service: 06.29.24-08.29.24 Auth/ reference number #: NA Per Availity Phone/Fax: Patient has [place] Insurance Additional Notes: Radiology to authorize the Radiology testing for local patient. * Telephone Encounter - Jay Pagan - 05/19/2024 4:14 PM EDT SCHEDULED 9.3 * Telephone Encounter - Juliana [place] - 05/18/2024 2:44 PM EDT This entry is pertaining to Benefits have been verified for Visit Type: Initial Consult/ Office visit and Testing, Follow Up Office Visit and Testing, Post Op Office Visit and Testing, Testing Only, and Surgery. Financial Needs type: Needs Authorization submitted to insurance per insurance guidelines. Patient has [employer] insurance. ID Number:[id number] Effective Date: 10.27.2023 Plan Type: COMMERCIAL PPO Deductible: $1,500 ($0 REM) Coinsurance: 80/20 Out of Pocket: $2,500 ($0 REM) OV Copay: $35 In Network: yes Is it a Covered Benefit?: yes Is a SCA needed: no documented in this encounter Plan of Treatment Not on file documented as of this encounter Visit Diagnoses Not on filedocumented in this encounter Care Teams Billet Assembler Relationship Specialty Start Date End Date Johnathan Duenas M.D. [address] [place] [address] PCP - General External Family Practice 05/30/24 documented as of this encounter
== END 2025-06-15 23:59 | disposition home or self-care (01) ==
LOC: RAD 13:40
PROVIDERS: PCP Family Medicine; Visit Provider Podiatrist
DX: M25.571 Pain in right ankle and joints of right foot (principal); M79.671 Pain in right foot; M79.672 Pain in left foot; M25.572 Pain in left ankle and joints of left foot; Z98.890 Other specified postprocedural states
CPT/HCPCS: 73610; 73630

== ENCOUNTER 2025-07-08 14:55 | Outpatient (CLI) | payer BC, SELFPAY ==
--- OUTSIDE RECORDS SUMMARY | 2025-02-18 10:00 | XMS_ITS ---
Author Organization [facility] Address 1210 [facility] [address] [place] [id number] Care Team Providers Care Toll Bridge Attendant Name Role Phone Johnathan Duenas Primary [...] Status W/U Status Risk Notes Problem Hyperthyroidism (93767999) Hyperthyroidism (E05.90) Active confirmed Vital Signs Blood pressure systolic 110 mm Hg 02/19/20 25 Blood pressure diastolic 70 mm Hg 025 Heart Rate 80 /min 02/18/2025 Height 61.5 in 02/18/2025 Weight 218.8 lbs 02/18/2025 BMI 40.67 kg/m2 02/18/2025 Encounters Encounter Location Date Provider Diagnosis [facility] [address] [place] [id number] 02/18/2025 Johnathan Duenas Acute diarrhea R19.7 and [...] Notes * JOYCELYN GODINEZOB:1995 (29 yo F)Acc No.[id number]:02/18/2025 Progress Notes Patient: ISABELA HELMS Provider: Ramesh Duenas M.D. :1995 A ge:29 Y S ex:Female Date:02/18/2025 Address:[place], [id number] Subjective: * Chief Complaints: * 1 . [...] onsillectomy 1999, Bilateral Ankles 2018, Cholecystectomy 2016, [place] Teeth 2013, D & C 2019, Tubal [...] * Images: Billing Information: * Visit Code: 93829 Office Visit, Est Pt., Level 3. * Procedure Codes: 3074F SYST BP LT 130 MM HG. 3078F DIAST BP < 80 MM HG. * Electronic signature of Sharda Duenas MD on 07/08/2025 at 02:59 PM EDT Sign off status: Pending * Provider: Ramesh Duenas M.D. Date: 0 02/18/2025 Generated for Reggie stone/Leslie/Bill on: 0 07/08/2025 02:59 PM EDT History and Physical Notes * HPI [...]
--- OUTSIDE RECORDS SUMMARY | 2025-03-18 10:30 | XMS_ITS ---
Author Organization [facility] Address [address] [place] [phone] Care Team Providers Care Manager Coding Name Role Phone Johnathan Duenas Primary Care Provider [phone] REASON FOR VISIT fu blood work for thyroid Encounters Encounter Location Date Provider Diagnosis [facility] [address] [place] [id number] 03/18/2025 Johnathan Duenas Plan Of Treatment No Information Progress Notes * MOHAN GODINEZHIRALOB:1995 (29 yo F)Acc No.[id number]:03/18/2025 Patient: ISABELA HELMS Provider: Ramesh Duenas M.D. :1995 A ge:29 Y S ex:Female Date:03/18/2025 Address:[address] [place], [place] Subjective: * Chief Complaints: * 1 . Fu blood work for thyroid. * 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: Objective: * Vitals: Assessment: Plan: * Treatment: * Images: Billing Information: * Visit Code: * Procedure Codes: * Electronic signature of Sharda Duenas MD on 07/08/2025 at 02:59 PM EDT Sign off status: Pending * Provider: Ramesh Duenas M.D. Date: 03/18/2025 Generated for Reggie stone/Leslie/eTransmitting on: 0 07/08/2025 02:59 PM EDT
--- OUTSIDE RECORDS SUMMARY | 2025-05-11 11:00 | XMS_ITS ---
Author Organization [facility] Address [address] [facility] [address] [place] [id number] Care Team Providers Care Archeology Faculty Member Name Role Phone Johnathan Duenas Primary Care Provider [phone] Allergies No Known Allergies Results Component Value [...] Interpretation:Normal Performing Lab: Notes/Report: Test performed by [facility] [address] [place], [place] [address] [place] , [address], [place] [address] Nick Brady MD, Operations Executive CLIA: [id number] Amylase 42 28-100 U/L P-Antistreptolysin O AB Reviewed date:05/13/2025 09:49:59 AM Interpretation:Normal Performing Lab: Notes/Report: Test performed by [facility] [address] [place], [place] [address] [place] , [address], [place] [address] Nick Brady MD, Operations Executive CLIA: [id number] Antistreptolysin O AB 175.0 <20-200.0 IU/mL P-Comprehensive Metabolic Pa helio (CMP) Reviewed date:05/13/2025 09:49:59 AM Interpretation:bili 1.4 Performing Lab: Notes/Report: Test performed by [facility] [address] [place] [address] , [place] [address] Nick Brady MD, Operations Executive CLIA: [id number] Sodium 137 135-145 mmol/L Potassium 4.1 3.5-5.3 [...] Interpretation:Reactive Performing Lab: Notes/Report: Test performed by [facility] [address] [place] [address] [place] [address] Nick Brady MD, Operations Executive CLIA: [id number] Cytomegalovirus (CMV) Antibody, IgG Reactive Non-Reactive This [...] >8 Performing Lab: Notes/Report: Test performed by [facility] [address] [place] [address] , [address], [place] [address] Nick Brady MD, Operations Executive CLIA: [id number] Deidre Dewey Virus (EBV) VCA Antibodies IgG >8.0 <0.9 AI Deidre Dewey Virus (EBV) VCA Antibodies IgM 0.3 <0.9 AI P-Sed Rate (ESR) Reviewed date:05/13/2025 09:50:00 AM Interpretation:Normal Performing Lab: Notes/Report: Test performed by [facility] [address] , [address], [place] [address] Nick Brady MD, Operations Executive CLIA: [id number] Erythrocyte Sedimentation Ra te (ESR), Automated 18 <26 mm/hr P-Lipase Reviewed date:05/13/2025 09:50:00 AM Interpretation:Normal Performing Lab: Notes/Report: Test performed by [facility] [address] [place] [address] , [address], [place] [address] Nick Brady MD, Operations Executive CLIA: [id number] Lipase 19.8 13.0-60.0 U/L REASON FOR VISIT 6 months Medications Medication SIG (Take, Route, Fr equency, Duration) Notes Start Date End Date Status Multi Vitamin - 1 tablet Orally Once a day; Duration: 30 day(s) Active Nystatin 931164 UNIT/GM 1 application Ex ternally Twice a [...] Status W/U Status Risk Notes Problem Thrombocytopenia (448468377) Thrombocytopenia (D69.6) Active confirmed Vital Signs Blood pressure systolic 110 mm Hg 05/11/20 25 Blood pressure diastolic 70 mm Hg 025 Heart Rate 80 /min 05/11/2025 Height 61.5 in 05/11/2025 Weight 221 lbs 05/11/2025 BMI 41.08 kg/m2 05/11/2025 Encounters Encounter Location Date Provider Diagnosis [facility] [address] [place], [place] [phone] 05/11/2025 Johnathan Duenas Fever, unspecified R 50.9 [...] Sig Start Date Stop Date Notes Nystatin 784959 UNIT/GM 1 application Ex ternally Twice a day 05/11/2025 Omeprazole 40 MG 1 capsule 1/2 to 1 h our before morning meal Orally Once a day; Duration: 30 days 05/11/2025 Next Appt Details Follow Up: via phone to repo rt progress, Reason: Progress Notes * JOYCELYN GODINEZOB:1995 (29 yo F)Acc No.[id number]:05/11/2025 Progress Notes Patient: MOHAN HELMSNE Provider: Ramesh Duenas M.D. :1995 A ge:29 Y S ex:Female Date:05/11/2025 Address[place], [id number] Subjective: * Chief Complaints: * 1 . [...] pain. Pt states she did go to [facility] 04/05 and tested negative for strep throat. [...] onsillectomy 1999, Bilateral Ankles 2018, Cholecystectomy 2016, [place] Teeth 2013, D & C 2019, Tubal [...] phone encounter 6.?Skin rash? Start Nystatin Cream, 886830 UNIT/GM, 1 application, Externally, Twice a day, 30 grams, Refills 1. ? * Procedure Codes: 8 5025 CBC WITH AUTO DIFF, 05644 STREP A ASSAY W/OPTIC, Modifiers: QW , 1036F TOBACCO NON-USER, 3074F SYST BP LT 130 MM HG, 3078F DIAST BP < 80 MM HG * Follow Up: v ia phone to report progress * Images: Billing Information: * Visit Code: 70509 Office Visit, Est Pt., Level 4. * Procedure Codes: 07486 CBC WITH AUTO DIFF. 89825 STREP A ASSAY W/OPTIC. Modifiers: QW 1036F TOBACCO NON-USER. 3074F SYST BP LT 130 MM HG. 3078F DIAST BP < 80 MM HG. * Electronic signature of Sharda Duenas MD on 07/08/2025 at 02:58 PM EDT Sign off status: Pending * Provider: Ramesh Duenas M.D. Date: 0 05/11/2025 Generated for Printi ng/Faxing/eTransmitting on: 0 07/08/2025 02:58 PM EDT History and Physical Notes * HPI (History of Present Illness) Category Sub-Category Detail Notes Category Not es ENT/respiratory sore throat Pt complains of sore throat for over a month. Associated with fever, nausea and stomach pain. Pt states she did go to [facility] 04/05 and tested negative for strep throat. [...]
--- OUTSIDE RECORDS SUMMARY | 2025-05-31 11:45 | XMS_ITS ---
Author Organization [facility] Address [address] [facility] [address] [place] [phone] Care Team Providers Care Spring Forger Name Role Phone Johnathan Duenas Primary Care Provider [phone] Results Component Value Reference Range Notes CBC [...] 36 [facility] [address] [place] [phone] 05/31/2025 Johnathan Duenas Thrombocytopenia D69 .6 Assessments Encounter Date Diagnosis (ICD Code) Assessment Notes Treatment Notes Treatment Clinical Notes Section Notes 05/31/2025 Thrombocytopenia (ICD-10 - D69.6) Plan Of Treatment No Information Progress Notes * GRETCHENMOHAN SOTOMAYORHIRALOB:1995 (29 yo F)Acc No.[id number]:05/31/2025 Patient: ISABELA HELMS Provider: Ramesh Duenas M.D. :1995 A ge:29 Y S ex:Female Date:05/31/2025 Address:[id number] Subjective: * Chief Complaints: * 1 . [...] Procedure Codes: 3 6416 CAPILLARY BLOOD DRAW, 47635 CBC WITH AUTO DIFF * Images: Billing Information: * Visit Code: * Procedure Codes: 07713 CAPILLARY BLOOD DRAW. 62982 CBC WITH AUTO DIFF. * Electronic signature of Sharda Duenas MD on 07/08/2025 at 02:59 PM EDT Sign off status: Pending * Provider: Ramesh Duenas M.D. Date: 0 05/31/2025 Generated for Reggie stone/Leslie/Bill on: 0 07/08/2025 02:59 PM EDT
--- OUTSIDE RECORDS SUMMARY | 2025-06-13 05:08 | XMS_ITS ---
Author Organization Laura Address [address] [facility] 36 [facility] [address] [place] [id number] Care Team Providers Care Abalone Processor Name Role Phone Johnathan Duenas Primary Care Provider Reason For Referral Diagnosis 1 Rash (R21) Referral Organization KAREN[facility] Referring Provider First Name Johnathan Referring Provider Last Name Yulissa Referring Provider Speciality Family Pra ctice Referred Provider Herber Ojeda Referred Provider Specialty Dermatology General Notes Zuleyka Lin 2024 10:44:17 AM > faxed to Dr. Ojeda at [facility] Referral Priority Routine REASON FOR VISIT Message Encounters Encounter Location Date Provider Diagnosis [place] [address] [place] [phone] 06/13/2025 Johnathan Duenas Rash R21 Assessments Encounter Date Diagnosis (ICD Code) Assessment Notes Treatment Notes Treatment Clinical Notes Section Notes 06/13/2025 Rash (ICD-10 - R21) Plan Of Treatment Referrals Referral Date Details 06/13/2025 06/13/2025Herber Progress Notes * JOYCELYN GODINEZOB:1995 (29 yo F)Acc No.[id number]:06/13/2025 Patient: ISABELA HELMS :1995 A ge:29 Y S ex:Female Address:[place] [address] Subjective: * Chief Complaints: * M essage * 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: * Surgical History: * Hospitalization/Major Diagno stic Procedure: * Medications: Objective: * Vitals: * Physical Examination: Assessment: * Assessment: 1. R bri - R21 (Primary) Plan: * Treatment: * Procedure Codes: * true * Date: Generated for Reggie stone/Leslie/Morrisitting on: 0 07/08/2025 02:59 PM EDT Consultation Request Notes Referral Date Referring Provider Referred Provider Not es 06/13/2025 Johnathan Duenas [place]
--- OUTSIDE RECORDS SUMMARY | 2025-07-08 14:58 | XMS_ITS | Patient Health Record ---
[facility] [address] [facility] [address] [place] [id number] Care Team Providers Care Waste Specialist Name Role Phone Johnathan Duenas Primary Care Provider Adama Ballard Unavailable [phone] Pranaysanjay Radha Unavailable [phone] Allergies No Known Allergies Results Component Value [...] - 38 plat 186 100 - 400 P-Lipase Reviewed date:05/13/2025 09:50:00 AM Interpretation:Normal Performing Lab: Notes/Report: Test performed by [facility] [address] [place], [place] [address] , [address], [place] [address] Nick Brady MD, Pencil Sorter CLIA: [id number] Lipase 19.8 13.0-60.0 U/L P-Sed Rate (ESR) Reviewed date:05/13/2025 09:50:00 AM Interpretation:Normal Performing Lab: Notes/Report: Test performed by [facility] [address] [place], [place] [address] , [address], [place] [address] Nick Brady MD, Pencil Sorter CLIA: [id number] Erythrocyte Sedimentation Rate (ESR), Automated 18 <26 mm/hr P-Deidre Dewey Virus (EBV) V CA Antibodies IgG IgM Reviewed date:05/13/2025 09:50:00 AM Interpretation:EBV IgG >8 Performing Lab: Notes/Report: Test performed by [facility] [address] [place], [place] [address] [place] [address] Nick Brady MD, Pencil Sorter CLIA: [id number] Deidre Dewey Virus (EBV) VCA Antibodies IgG >8.0 <0.9 AI Deidre Dewey Virus (EBV) VCA Antibodies IgM 0.3 <0.9 AI P-Cytomegalovirus (CMV) Anti bodies, IgG/IgM Reviewed date:05/13/2025 09:49:59 AM Interpretation:Reactive Performing Lab: Notes/Report: Test performed by [facility] [address] [place] [address] [place] [address] Nick Brady MD, Pencil Sorter CLIA: [id number] Cytomegalovirus (CMV) Antibody, IgG Reactive Non-Reactive This test is performed by the [facility] Cytomegalovirus IgG assay. Results from assays of other manufacturers cannot be used interchangeably. Non-reactive CMV IgG-specific antibodies not detected. Borderline Recommend collection of a second sample, within 2 weeks, for repeat testing. Reactive CMV IgG-specific antibodies detected. Cytomegalovirus (CMV) Antibodies, IgM Reactive Non-Reactive This test is performed by the [facility] Cytomegalovirus IgM assay. Results from assays of other manufacturers cannot be used interchangeably. Non-Reactive CMV IgM-specific antibodies not detected. Borderline Recommend collection of a second sample, within 2 weeks, for repeat testing. Reactive CMV IgM-specific antibodies detected. P-Comprehensive Metabolic Pa helio (CMP) Reviewed date:05/13/2025 09:49:59 AM Interpretation:bili 1.4 Performing Lab: Notes/Report: Test performed by [facility] [address] [place] [address] , [address], [place] [address] Nick Brady MD, Pencil Sorter CLIA: [id number] Sodium 137 135-145 mmol/L Potassium 4.1 3.5-5.3 [...] Interpretation:Normal Performing Lab: Notes/Report: Test performed by [facility] [address] [place] [address] , [place] [address] Nick Brady MD, Pencil Sorter CLIA: [id number] Antistreptolysin O AB 175.0 <20-200.0 IU/mL P-Amylase Reviewed date:05/13/2025 09:49:59 AM Interpretation:Normal Performing Lab: Notes/Report: Test performed by [facility] [address] [place] [address] , [place] [address] Nick Brady MD, Pencil Sorter CLIA: [id number] Amylase 42 28-100 U/L CBC Fingerstick (in [...] Performing Lab: Notes/Report: strep test Neg CBC Venipuncture (in house) Reviewed date:12/30/2024 09:22:03 [...] Interpretation:Normal Performing Lab: Notes/Report: Test performed by [facility] [address] [place], [place] [address] , [address], [place] [address] Nick Brady MD, Pencil Sorter CLIA: [id number] Sodium 141 135-145 mmol/L Potassium 4.2 3.5-5.3 [...] mg/dL A/G Ratio 1.4 1.1-2.5 P-Arthritis Panel, [facility] Reviewed date:01/05/2025 01:01:14 PM Interpretation:CRP 0.71 Performing Lab: Notes/Report: Test performed by [facility] [address] [place], [place] [address] , [address], [place] [address] Nick Brady MD, Pencil Sorter CLIA: [id number] Erythrocyte Sedimentation Rate (ESR), Automated 11 <26 mm/hr Rheumatoid Factor 12.0 <14.1 IU/mL C-Reactive Protein (CRP) 0.71 <0.50 mg/dL Antinuclear Antibodies (LATRICIA) Screen, Reflex LATRICIA 9 Panel Negative Negative This test is performed by Multiplex Bead Immunoassay methodology. Antinuclear Antibodies ([place]ICIA) Result Note SEE COMMENT For positive Autoantibodies, please refer to the interpretive chart here: [email or web address] [email or web address] CCP Antibodies <0.5 <0.5-3.0 U/mL P-T4 Free (thyroxine) Reviewed date:01/05/2025 01:01:14 PM Interpretation:Normal Performing Lab: Notes/Report: Test performed by [facility] [address] [place] [address] , [place] [address] Nick Brady MD, Pencil Sorter CLIA: [id number] Thyroxine Free (free T4) 1.50 0.86-1.76 ng/dL P-Thyroid Antibody Panel (TA BS) Reviewed date:01/05/2025 01:01:14 PM Interpretation:Normal Performing Lab: Notes/Report: Test performed by [facility] [address] [place] [address] , [place] [address] Nick Brady MD, Pencil Sorter CLIA: [id number] Thyroid Peroxidase Antibody 17 <9-34 IU/mL An [...] Interpretation:0.17 Performing Lab: Notes/Report: Test performed by [facility] [address] [place] [address] , [place] [address] Nick Brady MD, Pencil Sorter CLIA: [id number] TSH 0.17 0.43-5.25 mU/L ultrasound : thyroid Reviewed date:01/05/2025 01:01:13 PM Interpretation:homogenous thyroid Performing Lab: Notes/Report: homogenous thyroid CBC Fingerstick (in house) Reviewed date:07/13/2024 11:14:12 [...] - 38 plat 156 100 - 400 P-T4 Free (thyroxine) Reviewed date:01/27/2025 02:33:57 PM Interpretation:2.1 Performing Lab: Notes/Report: Test performed by [facility] [address] [place] [address] , [address], [place] [address] Nick Brady MD, Pencil Sorter CLIA: [id number] Thyroxine Free (free T4) 2.10 0.86-1.76 ng/dL P-Total T3 Reviewed date:01/27/2025 02:33:57 PM Interpretation:Normal Performing Lab: Notes/Report: Test performed by [facility] [address] [place] [address] , [address], [place] [address] Nick Brady MD, Pencil Sorter CLIA: [id number] Total T3 1.98 0.80-2.00 ng/mL P-TSH Reviewed date:01/27/2025 02:33:57 PM Interpretation:0.01 Performing Lab: Notes/Report: Test performed by [facility] [address] [place] [address] , [address], [place] [address] Nick Brady MD, Pencil Sorter CLIA: [id number] TSH 0.01 0.43-5.25 mU/L Rapid Strep- Inhouse Reviewed date:02/10/2025 11:39:14 AM [...] 177 100 - 400 Reason For Referral Diagnosis 1 Rash (R21) Referral Organization [facility] Referring Provider First Name Johnathan Referring Provider Last Name Yulissa Referring Provider Speciality Family [facility] brenda Referred Provider Herber Ojeda Referred Provider Specialty Dermatology General Notes Zuleyka Lin 2024 10:44:17 AM > faxed to Dr. Ojeda at [facility] Referral Priority Routine Medications Medication SIG [...] day Active Ketoconazole 2 % 1 application Diazo Technician ally Once a day 05/20/2025 Active Diflucan [...] W/U Status Risk Notes Problem Essential hypertension (14170126) Essential hypertension (I10) Active confirmed Problem Hyperthyroidism (15930241) Hyperthyroidism (E05.90) Active confirmed Problem Mixed anxiety and depressive disorder (500881532) Depression with anxiety (F41.8) Active confirmed Problem Chronic pain (20934487) Other chronic pain (G89.29) Active confirmed Problem Thrombocytopenia (968348584) Thrombocytopenia (D69.6) Active confirmed Problem Chronic rhinitis (21573547) Rhinitis, unspecified type (J31.0) Active confirmed Problem Thyromegaly (2044319) Thyromegaly (E01.0) Active confirmed Problem Obesity (342331535) Non morbid o besity (E66.9) Active confirmed Problem Primary hypertension (89677073) Primary hypertension (I10) Active confirmed Vital Signs Heart Rate 80 /min 05/11/2025 Blood pressure diastolic 70 mm Hg 05/11/2025 Height 61.5 in 05/11/2025 Blood pressure systolic 110 mm Hg 05/11/2025 Weight 221 lbs 05/11/2025 BMI 41.08 kg/m2 05/11/2025 Encounters Encounter Location Date Provider Diagnosis [facility] [address] [place], [place] [id number] 07/13/2024 Johnathan [place] Cough, unspecified t ype R05.9 [facility] [address] [facility] [address] [place], [place] [id number] 09/01/2024 Johnathan [place] Acute URI J06.9 and Tinea corporis B35.4 [facility] [address] [place], [place] [id number] 11/10/2024 Johnathan [place] Essential hypertensi on I10 [facility] [address] [place], [place] [id number] 11/15/2024 Johnathan [place] Herpes zoster withou t complication B02.9 [facility] [address] [place], [place] [id number] 12/29/2024 Radha Pranaydy Myalgia M79.10 ; Arthralgia, unspecified joint M25.50 ; Heart palpitations R00.2 ; Hair loss L65.9 ; Other fatigue R53.83 ; Elevated liver enzymes R74.8 ; Thyromegaly E01.0 and Rash R21 [facility] [address] [place], [place] [id number] 01/26/2025 Johnathan [place] Low TSH level R79.89 and Rash R21 [facility] [address] [place], [place] [id number] 02/10/2025 Radha Crowdy Acute otitis media, right H66.91 ; Acute URI J06.9 and Body aches R52 [facility] [address] [place], [place] [id number] 02/18/2025 Johnathan [place] Acute diarrhea R19.7 and Hyperthyroidism E05.90 [facility] [address] [place], [place] [id number] 05/11/2025 Johnathan [place] Fever, unspecified R 50.9 ; Sorethroat J02.9 ; Epigastric abdominal pain R10.13 ; Heartburn R12 ; Thrombocytopenia D69.6 ; Family history of breast cancer in female Z80.3 and Skin rash R21 [facility] [address] [place], [place] [id number] 05/31/2025 Johnathan [place] Thrombocytopenia D69 .6 [facility] [address] [place], [place] [id number] 06/30/2025 Johnathan [place] [facility] [address] [place] [id number] 01/03/2025 Rahda Crowdy [facility] [address] [place] [id number] 01/27/2025 Johnathan [place] [facility] [address] [place] [id number] 02/07/2025 Johnathan [place] [facility] [address] [place] [id number] 02/15/2025 Johnathan [place] [facility] [address] [place] [id number] 02/16/2025 Johnathan [place] [facility] [address] [place] [id number] 02/28/2025 Johnathan [place] [facility] [address] [place] [id number] 05/13/2025 Johnathan [place] [facility] [address] [place] [id number] 05/20/2025 Johnathan [place] Skin rash R21 [facility] [address] [place] [id number] 05/20/2025 Johnathan [place] [facility] [address] [place], [place] [id number] 05/26/2025 R Randall Ballard [facility] [address] [place] [id number] 06/13/2025 Johnathan [place] Rash R21 [facility] [address] [place], [place] [id number] 01/28/2025 Johnathan [place] [facility] [address] [place], [place] [id number] 04/30/2025 Johnathan [place] Assessments Encounter Date Diagnosis (ICD Code) Assessment [...] Insured Coverage Start Date Coverage End Date [employer] [address] [place] [address] [id number] ISABELA GODINEZ Self - patient is the insured Medical (General) History Surgical History Surgery Date(Month/Year) Tonsillectomy 1999 Bilateral Ankles 2019 Cholecystectomy 2017 [place] Teeth 2014 D & C 2020 Tubal Ligation 2024 Hospitalization History Reason Date(Month/Year)
--- OUTSIDE RECORDS SUMMARY | 2025-07-08 14:58 | XMS_ITS | Clinical Summary ---
Author Organization [facility] Address [address] [place] [address] Care Team Providers Care Electrical Machinist Name Role Phone Provider, No Known Primary [...] such, I have scheduled Ms Cisneros with [facility] for possible PUBS/IUT procedure tomorrow. She will be at their ultrasound unit tomorrow at 0800. D/w Dr Marry Vogt. Records faxed. Follow up with [facility] TBD Dysmenorrhea 04/21/2023 Intrahepatic cholestasis [...] Date Recorded Retired Total Score 14 07/16/2021 [facility] - [...] things needed for daily living? No 11/13/2020 [place] Depression Scale Answer Date Recorded [place] Depression Scale Total 5 06/05/2021 The thought [...] Exam 04/08/2024 04/07/2023 COVID-19 Vaccine ( season) 2025 08/06/2021, 07/17/2021 INFLUENZA VACCINE 07/27/2025 TDAP/TD VACCINES [...] Reference Lab Report [facility] [address] [place] [address] or [phone] Wong Wall M.D., Muck Hauler PATIENT NAME LABORATORY NO. ISABELA CARDOSO [id number] AGE SEX SSN CLIENT REF # [id number] 25 1995 F [id number] [facility] ZACARIAS TROTTER REQUESTING Edis ATTENDING [place] [address] ALCIRA ORTIZ DATE COLLECTED DATE RECEIVED DATE [...] of chlamdial and gonococcal disease using the [place] system. TOMBSTONE ERECTOR HELPER: LEXI SAUCEDA (ASCP) CPT CODES: 41689, 86762, 69535 04/08/2023 2:46 PM EDT [facility] ThinPrep Vial Cervix uteri structure / Unknown Collection / Unknown 04/07/2023 8:19 AM EDT 04/07/2023 8:19 AM EDT Alcira Ortiz MD PATHOLOGY/CYTOLOGY ORDER CALLUM Final Result [facility]
[address] [place] [address], * Obstetric Panel (11/13/2020 12:00 AM EST) Hepatitis B Surface Ag Negative Negative [facility] Hep C Virus Ab <0.1 0.0 - 0.9 s/co ratio [facility] Comment: Negative: < 0.8 Indeterminate: 0.8 - 0.9 Positive: > 0.9 The CDC recommends that a positive HCV antibody result be followed up with a HCV Nucleic Acid Amplification test (284837). RPR Non Reactive Non Reactive [facility] [...] 6:09 AM EST Performed at: - [facility] [address] [place], [place] [id number] [place] Cutter: Micah Warner PhD, Phone: [phone] Alcira Ortiz MD LAB BLOOD ORDERABLES Fin al Result Performing Organization Address City/State/[facility] Co de Phone Number [facility] [employer] [facility] (AMBULATORY) [address] [id number], [facility] [address] [place] [address], from Last 3 Months or Most Recently Relevant to Health Maintenance Insurance [facility] PPO Advance Directives * CPR (Attempt to Resuscitate) (Latest Code Status on File) Date Activated Date Inactivated Comments 06/05/2021 6:00 AM 06/07/2021 4:15 PM Question Answer Comments Code Status (Patient has no pulse and is not breathing): CPR (Attempt to Resuscitate) Medical Interventions (Patie nt has pulse or is breathing): Full Care Teams Electrical Machinist Relationship Specialty Start Date End Date Provider, [place] [address] PCP - General 12/04/20
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
--- OUTSIDE RECORDS SUMMARY | 2025-07-08 14:59 | XMS_ITS | Encounter Summary ---
[facility] Organization [facility] Address [address] [place] [address] Care Team Providers Care Hospital Plan Administrator Name Role Phone Provider, No Known Primary Care Provider Unavail able Reason for Visit * Reason Onset Date Comments Med Refill 10/27/2022 Encounter Details Date Type Department Care Team (Late st Contact Info) Description 10/27/2022 Refill [facility] [address] [place] [address] Henrique Barney MD [address] [facility] [address] [place] [address] 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 Tobacco Use Types Packs/Day Years [...] Date Recorded Retired Total Score 14 07/16/2021 [facility] of Occupat ional Health - Occupational Stress [...] things needed for daily living? No 11/13/2020 [place] Depression Scale Answer Date Recorded [place] Depression Scale Total 5 06/05/2021 The thought [...] on filedocumented in this encounter Care Teams Hospital Plan Administrator Relationship Specialty Start Date End Date Provider, No Known [facility] [place] [address] PCP - General 12/04/20 documented as of this encounter
--- OUTSIDE RECORDS SUMMARY | 2025-07-08 14:59 | XMS_ITS | Clinical Summary ---
Author Organization [facility] [place] [address] Care Team Providers Care Lobster Catcher Name Role Phone Pcp, No Primary Care [...] [facility]-HIV Screening 1995 [facility]-Hepatitis C Screening 1997 [facility]-Infant/Child/Adol SDOH Screenings 1997 [facility]-Varicella Vaccines (1 of 2 - 13+ 2-dose series) 2010 [facility]- SDOH Screenings 2015 [facility]-Adult SDOH Screenings 2015 [facility]-Hepatitis B Vaccines (1 of 3 - 19+ 3-dose series) 2016 HPV Vaccines (1 - 3-dose SCDM series) 2024 DRV-IMFSO-51 Vaccine (3 - 2024- season) 2025 08/06/2021, 07/17/2021 [facility]-Influenza Vaccine (#1) 2025 [facility]-Pap Smear 04/07/2026 [...] to complete this topic Insurance Care Teams Lobster Catcher Relationship Specialty Start Date [place] [address] PCP - General Family Medicine 04/08/24
--- OUTSIDE RECORDS SUMMARY | 2025-07-08 14:59 | XMS_ITS | Encounter Summary ---
Author Organization [facility] Address [address] [place] [address] Care Team Providers Care Feed Research Aide Name Role Phone Johnathan Duenas M.D. Primary Care Provider [phone] Reason for Visit * Reason Onset Date Comments Financial - Insurance 05/18/2024 Schedule Appointment 05/19/2024 Encounter Details Date Type Department Care Team (Late st Contact Info) Description 05/18/2024 Telephone [facility] [address] [place] [phone] Juliana Woods Financial - Insurance; Schedule [...] Needed For Provider(s): Lilliana For CPT Codes: 47349t2, 68984i0, 88748i1, 81164a9, 03494s8, 61488, 26155, 94288, 20809, 73539, 07142, 99900, 20949, 19566, 97608 Qty x 4, 71771, 99239, 84802, 50400, Qty X1 Diagnosis Code: O35.8XX0 For Dates of Service: 06.29.24-08.29.24 Auth/ reference number #: NA Per Availity Phone/Fax: Patient has [employer] Insurance Additional Notes: Radiology to authorize the [...] insurance guidelines. Patient has [employer] insurance. ID Number:[id number] Effective Date: 10.27.2023 Plan Type: COMMERCIAL PPO Deductible: $1,500 ($0 REM) Coinsurance: 80/20 Out of Pocket: $2,500 ($0 REM) OV Copay: $35 In Network: yes Is it a Covered Benefit?: yes Is a SCA needed: no documented in this encounter Plan of Treatment Not on file documented as of this encounter Visit Diagnoses Not on filedocumented in this encounter Care Teams Feed Research Aide Relationship Specialty Start Date End Date Johnathan Duenas M.D. [address] [place] [address] PCP - General External Family Practice 05/30/24 documented as of this encounter
[2025-07-08 15:23] LABS: Hematocrit 34.9 % (37.0-47.0); Hemoglobin 11.7 g/dL (12.2-16.2); Immature Granulocytes % 0.2 %; Mean Corpuscular HGB Conc 33.5 g/dL (31.8-35.4); Mean Corpuscular Hemoglobin 29.6 pg (27.0-31.2); Mean Corpuscular Volume 88.4 fl (81-99); Nucleated Red Blood Cells % 0 %; Platelet Count 160 K/mm3 (142-424); Red Blood Count 3.95 M/mm3 (4.20-5.40); Red Cell Distribution Width-SD 46.5 fL; White Blood Count 5.2 K/mm3 (4.8-10.8)
[2025-07-08 16:07] LABS: Alanine Aminotransferase 18 U/L (12-78); Albumin Level 4.0 g/dl (3.5-5.0); Albumin/Globulin Ratio 1.3 (1.1-1.8); Alkaline Phosphatase 56 U/L (38-126); Anion Gap 8.9 mEq/L (5-15); Aspartate Amino Transferase 21 U/L (14-36); Bilirubin,Total 0.7 mg/dl (0.2-1.3); Blood Urea Nitrogen 12 mg/dl (7-17); Calcium 9.2 mg/dl (8.4-10.2); Carbon Dioxide 30 mmol/L (22.0-30.0); Chloride 102 mmol/L (98-107); Creatinine,Serum 0.70 mg/dl (0.52-1.04); Estimated Glomerular Filt Rate 100 ml/min (>60); GFR (African American) 121 ML/MIN (>60); Globulin 3.1 g/dL (1.3-3.2); Glucose 81 mg/dl (74-100); Potassium 3.9 mmoL/L (3.5-5.1); Sodium 137 mmol/L (136-145); Total Protein,Serum 7.1 g/dl (6.3-8.2); Uric Acid 4.8 mg/dl (2.5-6.2)
[2025-07-08 16:13] LABS: C-Reactive Protein 2.8 mg/L (0-4)
[2025-07-08 16:57] LABS: Vitamin B12 595 pg/mL (239-931)
[2025-07-09 09:16] LABS: RA Latex Turbid. 10.1 IU/mL (<14.0)
== END 2025-07-08 23:59 | disposition home or self-care (01) ==
LOC: LAB 14:56
PROVIDERS: PCP Family Medicine; Visit Provider Podiatrist
DX: I89.0 Lymphedema, not elsewhere classified (principal); Z83.2 Family history of diseases of the blood and blood-forming organs and certain disorders involving the immune mechanism; E66.01 Morbid (severe) obesity due to excess calories; K21.9 Gastro-esophageal reflux disease without esophagitis; G89.29 Other chronic pain; Z96.9 Presence of functional implant, unspecified; Z13.828 Encounter for screening for other musculoskeletal disorder; M25.572 Pain in left ankle and joints of left foot
CPT/HCPCS: 36415; 80053; 82607; 82652; 84550; 85025; 85651; 86038; 86140; 86431

== ENCOUNTER 2025-07-14 07:30 | Outpatient (CLI) | payer BC, SELFPAY ==
--- OUTSIDE RECORDS SUMMARY | 2025-03-18 10:30 | XMS_ITS ---
Author Organization [facility] Address [address] [place] [id number] Care Team Providers Care Book Packer Name Role Phone Johnathan Duenas Primary Care Provider [phone] REASON FOR VISIT fu blood work for thyroid Encounters Encounter Location Date Provider Diagnosis [facility] [address] [place] [id number] 03/18/2025 Johnathan Duenas Plan Of Treatment No Information Progress Notes * MOHAN GODINEZHIRALOB:1995 (29 yo F)Acc No.[id number]:03/18/2025 Patient: ISABELA HELMS Provider: Ramesh Duenas M.D. :1995 A ge:29 Y S ex:Female Date:03/18/2025 Address:[address], [place] Subjective: * Chief Complaints: * 1 . Fu blood work for thyroid. * 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: Objective: * Vitals: Assessment: Plan: * Treatment: * Images: Billing Information: * Visit Code: * Procedure Codes: * Electronic signature of Sharda Duenas MD on 07/14/2025 at 07:33 AM EDT Sign off status: Pending * Provider: Ramesh Duenas M.D. Date: 03/18/2025 Generated for Reggie stone/Leslie/eTransmitting on: 0 07/14/2025 07:33 AM EDT
--- OUTSIDE RECORDS SUMMARY | 2025-05-11 11:00 | XMS_ITS ---
Author Organization [facility] Address [address] [facility] [address] [place] [id number] Care Team Providers Care Cook Enchilada Name Role Phone Johnathan Duenas Primary Care Provider [phone] Allergies No Known Allergies Results Component Value [...] Interpretation:Normal Performing Lab: Notes/Report: Test performed by [facility] [address] [place], [place] [address] [place] , [address], [place] [address] Nick Brady MD, Utilities Service Investigator CLIA: [id number] Amylase 42 28-100 U/L P-Antistreptolysin O AB Reviewed date:05/13/2025 09:49:59 AM Interpretation:Normal Performing Lab: Notes/Report: Test performed by [facility] [address] [place], [place] [address] [place] , [address], [place] [address] Nick Brady MD, Utilities Service Investigator CLIA: [id number] Antistreptolysin O AB 175.0 <20-200.0 IU/mL P-Comprehensive Metabolic Pa helio (CMP) Reviewed date:05/13/2025 09:49:59 AM Interpretation:bili 1.4 Performing Lab: Notes/Report: Test performed by [facility] [address] [place] [address] , [place] [address] Nick Brady MD, Utilities Service Investigator CLIA: [id number] Sodium 137 135-145 mmol/L Potassium 4.1 3.5-5.3 [...] Interpretation:Reactive Performing Lab: Notes/Report: Test performed by [facility] [address] [place] [address] [place] [address] Nick Brady MD, Utilities Service Investigator CLIA: [id number] Cytomegalovirus (CMV) Antibody, IgG Reactive Non-Reactive This [...] >8 Performing Lab: Notes/Report: Test performed by [facility] [address] [place] [address] , [address], [place] [address] Nick Brady MD, Utilities Service Investigator CLIA: [id number] Deidre Dewey Virus (EBV) VCA Antibodies IgG >8.0 <0.9 AI Deidre Dewey Virus (EBV) VCA Antibodies IgM 0.3 <0.9 AI P-Sed Rate (ESR) Reviewed date:05/13/2025 09:50:00 AM Interpretation:Normal Performing Lab: Notes/Report: Test performed by [facility] [address] , [address], [place] [address] Nick Brady MD, Utilities Service Investigator CLIA: [id number] Erythrocyte Sedimentation Ra te (ESR), Automated 18 <26 mm/hr P-Lipase Reviewed date:05/13/2025 09:50:00 AM Interpretation:Normal Performing Lab: Notes/Report: Test performed by [facility] [address] [place] [address] , [address], [place] [address] Nick Brady MD, Utilities Service Investigator CLIA: [id number] Lipase 19.8 13.0-60.0 U/L REASON FOR VISIT 6 months Medications Medication SIG (Take, Route, Fr equency, Duration) Notes Start Date End Date Status Multi Vitamin - 1 tablet Orally Once a day; Duration: 30 day(s) Active Nystatin 080825 UNIT/GM 1 application Ex ternally Twice a [...] Status W/U Status Risk Notes Problem Thrombocytopenia (286328249) Thrombocytopenia (D69.6) Active confirmed Vital Signs Blood pressure systolic 110 mm Hg 05/11/20 25 Blood pressure diastolic 70 mm Hg 025 Heart Rate 80 /min 05/11/2025 Height 61.5 in 05/11/2025 Weight 221 lbs 05/11/2025 BMI 41.08 kg/m2 05/11/2025 Encounters Encounter Location Date Provider Diagnosis [facility] [address] [place], [place] [id number] 05/11/2025 Johnathan Duenas Fever, unspecified R 50.9 [...] Sig Start Date Stop Date Notes Nystatin 947548 UNIT/GM 1 application Ex ternally Twice a day 05/11/2025 Omeprazole 40 MG 1 capsule 1/2 to 1 h our before morning meal Orally Once a day; Duration: 30 days 05/11/2025 Next Appt Details Follow Up: via phone to repo rt progress, Reason: Progress Notes * JOYCELYN GODINEZOB:1995 (29 yo F)Acc No.[id number]:05/11/2025 Progress Notes Patient: MOHAN HELMSNE Provider: Ramesh Duenas M.D. :1995 A ge:29 Y S ex:Female Date:05/11/2025 Address:[place], [id number] Subjective: * Chief Complaints: * 1 . [...] pain. Pt states she did go to [facility] 04/05 and tested negative for strep throat. [...] onsillectomy 1999, Bilateral Ankles 2018, Cholecystectomy 2016, [place] 2013, D & C 2019, Tubal [...] phone encounter 6.?Skin rash? Start Nystatin Cream, 079888 UNIT/GM, 1 application, Externally, Twice a day, 30 grams, Refills 1. ? * Procedure Codes: 8 5025 CBC WITH AUTO DIFF, 03351 STREP A ASSAY W/OPTIC, Modifiers: QW , 1036F TOBACCO NON-USER, 3074F SYST BP LT 130 MM HG, 3078F DIAST BP < 80 MM HG * Follow Up: v ia phone to report progress * Images: Billing Information: * Visit Code: 44176 Office Visit, Est Pt., Level 4. * Procedure Codes: 27916 CBC WITH AUTO DIFF. 16170 STREP A ASSAY W/OPTIC. Modifiers: QW 1036F TOBACCO NON-USER. 3074F SYST BP LT 130 MM HG. 3078F DIAST BP < 80 MM HG. * Electronic signature of Sharda Duenas MD on 07/14/2025 at 07:33 AM EDT Sign off status: Pending * Provider: Ramesh Duenas M.D. Date: 0 05/11/2025 Generated for Printi ng/Faxing/eTransmitting on: 0 07/14/2025 07:33 AM EDT History and Physical Notes * HPI (History of Present Illness) Category Sub-Category Detail Notes Category Not es ENT/respiratory sore throat Pt complains of sore throat for over a month. Associated with fever, nausea and stomach pain. Pt states she did go to [facility] 04/05 and tested negative for strep throat. [...]
--- OUTSIDE RECORDS SUMMARY | 2025-05-31 11:45 | XMS_ITS ---
Author Organization [facility] Address 1210 [facility] [address] [place] [id number] Care Team Providers Care Plant Protection Guard Name Role Phone Johnathan Duenas Primary Care [...] Provider Diagnosis [place] [address] [facility] [address] [place] [id number] 05/31/2025 Johnathan Duenas Thrombocytopenia D69 .6 Assessments Encounter Date Diagnosis (ICD Code) Assessment Notes Treatment Notes Treatment Clinical Notes Section Notes 05/31/2025 Thrombocytopenia (ICD-10 - D69.6) Plan Of Treatment No Information Progress Notes * GRETCHENMOHAN SOTOMAYORHIRALOB:1995 (29 yo F)Acc No.[id number]:05/31/2025 Patient: ISABELA HELMS Provider: Ramesh Duenas M.D. :1995 A ge:29 Y S ex:Female Date:05/31/2025 Address:[address] Subjective: * Chief Complaints: * 1 . [...] Procedure Codes: 3 6416 CAPILLARY BLOOD DRAW, 43035 CBC WITH AUTO DIFF * Images: Billing Information: * Visit Code: * Procedure Codes: 62098 CAPILLARY BLOOD DRAW. 82486 CBC WITH AUTO DIFF. * Electronic signature of Sharda Duenas MD on 07/14/2025 at 07:33 AM EDT Sign off status: Pending * Provider: Ramesh Duenas M.D. Date: 05/31/2025 Generated for Reggie stone/Leslie/Bill on: 07/14/2025 07:33 AM EDT
--- OUTSIDE RECORDS SUMMARY | 2025-06-13 05:08 | XMS_ITS ---
Author Organization Laura Address [address] [facility] 36 [facility] [address] [place] [id number] Care Team Providers Care Superannuation Funds Manager Name Role Phone Johnathan Duenas Primary Care Provider [phone] Reason For Referral Diagnosis 1 Rash (R21) Referral Organization [facility]AREN[facility]aura Referring Provider First Name Johnathan Referring Provider Last Name Yulissa Referring Provider Speciality Family Pra ctice Referred Provider Herber Ojeda Referred Provider Specialty Dermatology General Notes Zuleyka Lin 2024 10:44:17 AM > faxed to Dr. Ojeda at [facility] Referral Priority Routine REASON FOR VISIT Message Encounters Encounter Location Date Provider Diagnosis [place] [address] [place] [phone] 06/13/2025 Johnathan Duenas Rash R21 Assessments Encounter Date Diagnosis (ICD Code) Assessment Notes Treatment Notes Treatment Clinical Notes Section Notes 06/13/2025 Rash (ICD-10 - R21) Plan Of Treatment Referrals Referral Date Details 06/13/2025 06/13/2025Herber Progress Notes * JOYCELYN GODINEZOB:1995 (29 yo F)Acc No.[id number]:06/13/2025 Patient: ISABELA HELMS :1995 A ge:29 Y S ex:Female Address:[place] [address] Subjective: * Chief Complaints: * M essage * 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: * Surgical History: * Hospitalization/Major Diagno stic Procedure: * Medications: Objective: * Vitals: * Physical Examination: Assessment: * Assessment: 1. R bri - R21 (Primary) Plan: * Treatment: * Procedure Codes: * true * Date: Generated for Reggie stone/Leslie/Morrisitting on: 0 07/14/2025 07:33 AM EDT Consultation Request Notes Referral Date Referring Provider Referred Provider Not es 06/13/2025 Johnathan Duenas [place]
--- OUTSIDE RECORDS SUMMARY | 2025-06-30 10:51 | XMS_ITS ---
Author Organization Laura Address [address] [place] [address] [address] [place] [id number] Care Team Providers Care Vision Mixer Name Role Phone Johnathan Duenas Primary Care Provider Reason For Referral Diagnosis 1 Generalized abdomina l pain (R10.84) Diagnosis 2 Abdominal bloating ( R14.0) Diagnosis 3 Chronic nausea (R11. 0) [facility] Referring Provider First Name Johnathan Referring Provider Last Name Yulissa Referring Provider Speciality Family Pra ctice Referred Organization [facility] OP Referred Provider JOSHUA BERNARDO Referred Address [address] [place], [place] [id number], Referred Provider Specialty Gastroentero logy Referral Priority Routine REASON FOR VISIT Needs referral Encounters Encounter Location Date Provider Diagnosis [place] [address] [facility] 36 [facility] [address] [place] [id number] 06/30/2025 Johnathan Duenas Generalized abdomina l pain R10.84 ; Abdominal bloating R14.0 and Chronic nausea R11.0 Assessments Encounter Date Diagnosis (ICD Code) Assessment Notes Treatment Notes Treatment Clinical Notes Section Notes 06/30/2025 Generalized abdominal pain (ICD-10 - R10.84) 06/30/2025 Abdominal bloating (ICD-10 - R14.0) 06/30/2025 Chronic nausea (ICD-10 - R11.0) Plan Of Treatment Referrals Referral Date Details 07/13/2025 07/13/2025, JOSHUA MAK, [address], [place], [place], [id number], Progress Notes * JOYCELYN GODINEZOB:1995 (29 yo F)Acc No.[id number]:06/30/2025 Patient: ISABELA HELMS :1995 A ge:29 Y S ex:Female Address:[place] [address] Subjective: * Chief Complaints: * N eeds [...] BERNARDO Gastroenterology Reason: * Procedure Codes: * * Date: Consultation Request Notes Referral Date Referring Provider Referred Provider Not es 07/13/2025 Johnathan Duenas EAR[facility]
--- NOTE | 2025-07-14 07:30 | MR_ITS ---
FINAL REPORT CLINICAL HISTORY: hx of foot surgery,eval hardware,pain/instability left foot and ankle pain pt stated lateral ankle pain going around to the heel hx of surgery in 2019 COMPARISON: None FINDINGS: Multiplanar MR imaging of the left foot was performed with and without contrast. Multiple fixation screws transverse to subtalar joint with surgical arthrodesis. No gross surrounding marrow signal abnormality identified beyond typical hardware artifact. Moderate degenerative change of the talonavicular joint. There is enhancing soft tissue along the dorsal navicular bone and medial cuneiform deep to the anterior tibialis tendon favored to represent scar tissue or, less likely, mass. This measures 20 x 8 x 17 mm. IMPRESSION: No osseous abnormality identified. Enhancing soft tissue along the dorsal medial midfoot may represent scar tissue or less likely enhancing soft tissue mass. Reviewed, Interpreted and Dictated by Phil Dill MD Transcribed by Ariana Ross Authenticated and [facility]
--- OUTSIDE RECORDS SUMMARY | 2025-07-14 07:33 | XMS_ITS | Patient Health Record ---
Author Organization [facility] Address [address] [facility] [address] [id number] Care Team Providers Care Human Resources Administrator Name Role Phone Johnathan Duenas Primary Care Provider [phone] Adama Ballard Unavailable [phone] PranayRadha grace Unavailable [phone] Allergies No Known Allergies Results Component Value [...] - 38 plat 186 100 - 400 ultrasound : thyroid Reviewed date:01/05/2025 01:01:13 PM Interpretation:homogenous thyroid Performing Lab: Notes/Report: homogenous thyroid P-TSH Reviewed date:01/05/2025 01:01:14 PM Interpretation:0.17 Performing Lab: Notes/Report: CLIA: [id number] Nick Brady MD, Software Applications Architect [address] [place] [address] [address], [place] [address] Test performed by [facility] TSH 0.17 0.43-5.25 mU/L P-T4 Free (thyroxine) Reviewed date:01/05/2025 01:01:14 PM Interpretation:Normal Performing Lab: Notes/Report: Test performed by [facility] [address] [place] [address] Gabi Novoa, [place] [address] Nick Brady MD, Software Applications Architect CLIA: [id number] Thyroxine Free (free T4) 1.50 0.86-1.76 ng/dL P-Comprehensive Metabolic Pa helio (CMP) Reviewed date:01/05/2025 01:01:13 PM Interpretation:Normal Performing Lab: Notes/Report: Test performed by [facility], [address] , [address], [place] [address] Nick Brady MD, Software Applications Architect CLIA: [id number] Sodium 141 135-145 mmol/L Potassium 4.2 3.5-5.3 [...] 02:33:57 PM Interpretation:2.1 Performing Lab: Notes/Report: CLIA: [id number] Nick Brady MD, Software Applications Architect [address] [place] [address] , [place] [address] Test performed by [facility] Thyroxine Free (free T4) 2.10 0.86-1.76 ng/dL P-TSH Reviewed date:01/27/2025 02:33:57 PM Interpretation:0.01 Performing Lab: Notes/Report: Test performed by [facility] [address] [place] [address] , [place] [address] Nick Brady MD, Software Applications Architect CLIA: [id number] TSH 0.01 0.43-5.25 mU/L Rapid Strep- Inhouse Reviewed date:05/11/2025 05:36:52 PM [...] - 38 plat 91 100 - 400 P-Antistreptolysin O AB Reviewed date:05/13/2025 09:49:59 AM Interpretation:Normal Performing Lab: Notes/Report: CLIA: [id number] Nick Brady MD, Software Applications Architect [address] [place] [address] , [place] [address] Test performed by [facility] Antistreptolysin O AB 175.0 <20-200.0 IU/mL P-Comprehensive Metabolic Pa helio (CMP) Reviewed date:05/13/2025 09:49:59 AM Interpretation:bili 1.4 Performing Lab: Notes/Report: Test performed by [facility] [address] [place] [address] , [place] [address] Nick Brady MD, Software Applications Architect CLIA: [id number] Sodium 137 135-145 mmol/L Potassium 4.1 3.5-5.3 [...] Interpretation:Reactive Performing Lab: Notes/Report: Test performed by [facility] [address] [place] [address] Javier Novoa, [place] [address] Nick Brady MD, Software Applications Architect CLIA: [id number] Cytomegalovirus (CMV) Antibody, IgG Reactive Non-Reactive This [...] >8 Performing Lab: Notes/Report: Test performed by [facility] [address] [place] [address] [place] [address] Nick Brady MD, Software Applications Architect CLIA: [id number] Deidre Dewey Virus (EBV) VCA Antibodies IgG >8.0 <0.9 AI Deidre Dewey Virus (EBV) VCA Antibodies IgM 0.3 <0.9 AI P-Lipase Reviewed date:05/13/2025 09:50:00 AM Interpretation:Normal Performing Lab: Notes/Report: Test performed by [facility] , [place] [address] Nick Brady MD, Software Applications Architect CLIA: [id number] Lipase 19.8 13.0-60.0 U/L P-Sed Rate (ESR) Reviewed date:05/13/2025 09:50:00 AM Interpretation:Normal Performing Lab: Notes/Report: [facility] , [place] [address] Nick Brady MD, Software Applications Architect CLIA: [id number] Erythrocyte Sedimentation Rate (ESR), Automated 18 <26 mm/hr P-Amylase Reviewed date:05/13/2025 09:49:59 AM Interpretation:Normal Performing Lab: Notes/Report: Test performed by [facility] , [place] [address] Nick Brady MD, Software Applications Architect CLIA: [id number] Amylase 42 28-100 U/L P-Total T3 Reviewed date:01/27/2025 02:33:57 PM Interpretation:Normal Performing Lab: Notes/Report: Test performed by [facility] , [place] [address] Nick Brady MD, Software Applications Architect CLIA: [id number] Total T3 1.98 0.80-2.00 ng/mL P-Thyroid Antibody Panel (TA BS) Reviewed date:01/05/2025 01:01:14 PM Interpretation:Normal Performing Lab: Notes/Report: Test performed by [facility] , [place] [address] Nick Brady MD, Software Applications Architect CLIA: [id number] Thyroid Peroxidase Antibody 17 <9-34 IU/mL An [...] methods or kits cannot be directly compared. P-Arthritis Panel, [facility] Reviewed date:01/05/2025 01:01:14 PM Interpretation:CRP 0.71 Performing Lab: Notes/Report: Test performed by [facility], [facility] [address] [place] [address] , [address], [place] [address] Nick Brady MD, Software Applications Architect CLIA: [id number] Erythrocyte Sedimentation Rate (ESR), Automated 11 <26 mm/hr Rheumatoid Factor 12.0 <14.1 IU/mL C-Reactive Protein (CRP) 0.71 <0.50 mg/dL Antinuclear Antibodies (LATRICIA) Screen, Reflex LATRICIA 9 Panel Negative Negative This test is performed by Multiplex Bead Immunoassay methodology. Antinuclear Antibodies (LATRICIA) Result Note SEE COMMENT For positive Autoantibodies, please refer to the interpretive chart here: [email or web address] p-content/[email or web address]-Inter pretive-Chart.pdf CCP Antibodies <0.5 <0.5-3.0 U/mL CBC Fingerstick (in house) Reviewed date:09/01/2024 04:21:31 [...] Referral Diagnosis 1 Rash (R21) [facility] Referring Provider First Name Johnathan Referring Provider Last Name Yulissa [facility] Herber Ojeda Referred Provider Specialty Dermatology General Notes Jean Pierre Linnn 2024 10:44:17 AM > faxed to Dr. Ojeda at [facility] Referral Priority Routine Diagnosis 1 Generalized abdomina l pain (R10.84) Diagnosis 2 Abdominal bloating ( R14.0) Diagnosis 3 Chronic nausea (R11. 0) Ref[facility] Referring Provider First Name Johnathan Referring Provider Last Name Yulissa Referring Provider [facility] ctice Referred Organization [facility] OP Referred Provider JOSHUA BERNARDO Referred Address [address] [facility] [phone], Referred Provider Specialty Gastroentero logy Referral Priority Routine Medications Medication SIG (Take, [...] day Active Ketoconazole 2 % 1 application Equipment Maintenance Tech ally Once a day 05/20/2025 Active Diflucan [...] Vaccine Route Administration Date Status Comme nts Tetanus Tdap-Adacel (over 7yrs) Unknown 04/02/2021 Admi nistered COVID 19 Pfizer Unknown 07/17/2021 Administered COVID 19 Pfizer Unknown 08/06/2021 Administered Problems Problem Type SNOMED Code ICD Code Onset Dates Problem Status W/U Status Risk Notes Problem Essential hypertension (93525266) Essential hypertension (I10) Active confirmed Problem Hyperthyroidism (58668449) Hyperthyroidism (E05.90) Active confirmed Problem Mixed anxiety and depressive disorder (124651341) Depression with anxiety (F41.8) Active confirmed Problem Chronic pain (25484482) Other chronic pain (G89.29) Active confirmed Problem Thrombocytopenia (971733153) Thrombocytopenia (D69.6) Active confirmed Problem Chronic rhinitis (40409115) Rhinitis, unspecified type (J31.0) Active confirmed Problem Thyromegaly (8758063) Thyromegaly (E01.0) Active confirmed Problem Obesity (692087943) Non morbid o besity (E66.9) Active confirmed Problem Primary hypertension (43058623) Primary hypertension (I10) Active confirmed Vital Signs Heart Rate 80 /min 05/11/2025 Blood pressure diastolic 70 mm Hg 05/11/2025 Height 61.5 in 05/11/2025 Blood pressure systolic 110 mm Hg 05/11/2025 Weight 221 lbs 05/11/2025 BMI 41.08 kg/m2 05/11/2025 Encounters Encounter Location Date Provider Diagnosis [facility] [address] [place], [place] [id number] 09/01/2024 Johnathan [place] Acute URI J06.9 and Tinea corporis B35.4 [facility] [address] [place], [place] [id number] 11/10/2024 Johnathan [place] Essential hypertensi on I10 [facility] [address] [place], [place] [id number] 11/15/2024 Johnathan [place] Herpes zoster withou t complication B02.9 [facility] [address] [place], [place] [id number] 12/29/2024 Radha Crowdy Myalgia M79.10 ; Arthralgia, unspecified joint M25.50 ; Heart palpitations R00.2 ; Hair loss L65.9 ; Other fatigue R53.83 ; Elevated liver enzymes R74.8 ; Thyromegaly E01.0 and Rash R21 [facility] [address] [place], [place] [id number] 01/26/2025 Johnathan [place] Low TSH level R79.89 and Rash R21 [facility] [address] [place], [place] [id number] 02/10/2025 Radha Crowdy Acute otitis media, right H66.91 ; Acute URI J06.9 and Body aches R52 [facility] [address] [place], [place] [id number] 02/18/2025 Johnathan [place] Acute diarrhea R19.7 and Hyperthyroidism E05.90 [facility] [address] [place], [place] [id number] 05/11/2025 Johnathan [place] Fever, unspecified R 50.9 ; Sorethroat J02.9 ; Epigastric abdominal pain R10.13 ; Heartburn R12 ; Thrombocytopenia D69.6 ; Family history of breast cancer in female Z80.3 and Skin rash R21 [facility] [address] [place], [place] [id number] 05/31/2025 Johnathan [place] Thrombocytopenia D69 .6 [facility] [address] [place], [place] [id number] 06/30/2025 Johnathan [place] Generalized abdomina l pain R10.84 ; Abdominal bloating R14.0 and Chronic nausea R11.0 [facility] [address] [place], [place] [id number] 01/03/2025 Radha Crowdy [facility] [address] [place], [place] [id number] 01/27/2025 Johnathan [place] [facility] [address] [place], [place] [id number] 02/07/2025 Johnathan [place] [facility] [address] [place], [place] [id number] 02/15/2025 Johnathan [place] [facility] [address] [place] [id number] 02/16/2025 Johnathan [place] [facility] [address] [place] [id number] 02/28/2025 Johnathan [place] [facility] [address] [place] [id number] 05/13/2025 Johnathan [place] [facility] [address] [place] [id number] 05/20/2025 Johnathan [place] Skin rash R21 [facility] [address] [place], [place] [id number] 05/20/2025 Johnathan [place] [facility] [address] [place] [id number] 05/26/2025 R Randall Ballard [facility] [address] [place], [place] [id number] 06/13/2025 Johnathan [place] Rash R21 [facility] [address] [place], [place] [id number] 01/28/2025 Johnathan [place] [facility] [address] [place], [place] [id number] 04/30/2025 Johnathan [place] Assessments Encounter Date Diagnosis (ICD Code) Assessment [...] - D69.6) 06/13/2025 Rash (ICD-10 - R21) 06/30/2025 Generalized abdominal pain (ICD-10 - R10.84) 06/30/2025 Abdominal bloating (ICD-10 - R14.0) 09/01/2024 Tinea corporis (ICD-10 - B35.4) 09/01/2024 Acute URI (ICD-10 - J06.9) 11/10/2024 Essential hypertension (ICD-10 - I10) Patient is doing well off of medication., Blood pressure journal 11/15/2024 Herpes zoster without complication (ICD-10 - B02.9) 06/30/2025 Chronic nausea (ICD-10 - R11.0) 05/11/2025 Epigastric abdominal pain (ICD-10 - R10.13) [...] Coverage Start Date Coverage End Date [employer] [address] [place] [address] [id number] ISABELA GODINEZ Self - patient is the insured Medical (General) History Surgical History Surgery Date(Month/Year) Tonsillectomy 1999 Bilateral Ankles 2019 Cholecystectomy 2016 [place] Te[place] 2014 D & C 2020 Tubal Ligation 2024 Hospitalization History Reason Date(Month/Year)
--- OUTSIDE RECORDS SUMMARY | 2025-07-14 07:33 | XMS_ITS | Clinical Summary ---
Author Organization [facility] Address [address] [place] [address] Care Team Providers Care Molder Machine Name Role Phone Provider, No Known Primary [...] such, I have scheduled Ms Cisneros with [facility] for possible PUBS/IUT procedure tomorrow. She will be at their ultrasound unit tomorrow at 0800. D/w Dr Marry Vogt. Records faxed. Follow up with [facility] BHLex TBD Dysmenorrhea 04/21/2023 Intrahepatic cholestasis [...] Date Recorded Retired Total Score 14 07/16/2021 [facility] of Occupat ional Health - Occupational Stress [...] things needed for daily living? No 11/13/2020 [place] Depression Scale Answer Date Recorded [place] Depression Scale Total 5 06/05/2021 The thought [...] Lab Report [facility] [address] [place] [address] or [phone] Wong Wall M.D., Material Attendant PATIENT NAME LABORATORY NO. ISABELA CARDOSO [id number] AGE SEX SSN CLIENT REF # [facility] 25 1995 F [id number] [facility] ZACARIAS TROTTER REQUESTING Edis ATTENDING [place] [address] ALCIRA ORTIZ DATE COLLECTED DATE RECEIVED DATE [...] of chlamdial and gonococcal disease using the [place] system. HEADING MAKER: LEXI SAUCEDA (ASCP) CPT CODES: 20120, 19771, 65785 04/08/2023 2:46 PM EDT [facility] ThinPrep Vial Cervix uteri structure / Unknown Collection / Unknown 04/07/2023 8:19 AM EDT 04/07/2023 8:19 AM EDT Alcira Ortiz MD PATHOLOGY/CYTOLOGY ORDER CALLUM Final Result [facility]
[address] [place] [address], * Obstetric Panel (11/13/2020 12:00 AM EST) Hepatitis B Surface Ag Negative Negative [facility] Hep C Virus Ab <0.1 0.0 - 0.9 s/co ratio [facility] Comment: Negative: < 0.8 Indeterminate: 0.8 - 0.9 Positive: > 0.9 The CDC recommends that a positive HCV antibody result be followed up with a HCV Nucleic Acid Amplification test (388041). RPR Non Reactive Non Reactive [facility] [...] 6:09 AM EST Performed at: - [facility] [address] [place], [place] [id number] Deburrer: Micah Warner PhD, Phone: [phone] Alcira Ortiz MD LAB BLOOD ORDERABLES Fin al Result Performing Organization Address City/State/[facility] Co de Phone Number [facility] [place] (AMBULATORY) [address] [id number], [facility] [address] [place] [address], from Last 3 Months or Most Recently Relevant to Health Maintenance Insurance [facility] PPO Advance Directives * CPR (Attempt to Resuscitate) (Latest Code Status on File) Date Activated Date Inactivated Comments 06/05/2021 6:00 AM 06/07/2021 4:15 PM Question Answer Comments Code Status (Patient has no pulse and is not breathing): CPR (Attempt to Resuscitate) Medical Interventions (Patie nt has pulse or is breathing): Full Care Teams Molder Machine Relationship Specialty Start Date End Date Provider, [place] [address] PCP - General 12/04/20
--- OUTSIDE RECORDS SUMMARY | 2025-07-14 07:33 | XMS_ITS | Encounter Summary ---
Author Organization [facility] Address [address] [place] [address] Care Team Providers Care Dispatcher Ship Pilot Name Role Phone Johnathan Duenas M.D. Primary Care Provider [phone] Reason for Visit * Reason Onset Date Comments Financial - Insurance 05/18/2024 Schedule Appointment 05/19/2024 Encounter Details Date Type Department Care Team (Late st Contact Info) Description 05/18/2024 Telephone [facility] [address] [place] [phone] Juliana [employer] - Insurance; Schedule [...] Needed For Provider(s): Lilliana For CPT Codes: 36810t3, 60219f0, 18655y6, 23218n6, 62236r3, 40444, 00218, 80350, 34916, 44806, 49008, 92437, 41480, 19842, 53444 Qty x 4, 18344, 27491, 85664, 14359, Qty X1 Diagnosis Code: O35.8XX0 For Dates of Service: 06.29.24-08.29.24 Auth/ reference number #: NA Per Availity Phone/Fax: Patient has [place] Insurance Additional Notes: Radiology to authorize the [...] insurance guidelines. Patient has [employer] insurance. ID Number:[id number] Effective Date: 10.27.2023 Plan Type: COMMERCIAL PPO Deductible: $1,500 ($0 REM) Coinsurance: 80/20 Out of Pocket: $2,500 ($0 REM) OV Copay: $35 In Network: yes Is it a Covered Benefit?: yes Is a SCA needed: no documented in this encounter Plan of Treatment Not on file documented as of this encounter Visit Diagnoses Not on filedocumented in this encounter Care Teams Dispatcher Ship Pilot Relationship Specialty Start Date End Date Johnathan Duenas M.D. [address] [place] [address] PCP - General External Family Practice 05/30/24 documented as of this encounter
--- OUTSIDE RECORDS SUMMARY | 2025-07-14 07:33 | XMS_ITS | Encounter Summary ---
[facility] Organization [facility] Address [address] [place] [address] Care Team Providers Care [facility] Name Role Phone Provider, No Known Primary Care Provider Unavail able Reason for Visit * Reason Onset Date Comments Med Refill 10/27/2022 Encounter Details Date Type Department Care Team (Late st Contact Info) Description 10/27/2022 Refill [facility] OBGYN [address] [place] [address] Henrique Barney MD [address] [facility] [address] [place] [address] 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 Tobacco Use Types Packs/Day Years [...] Date Recorded Retired Total Score 14 07/16/2021 [facility] [place] of Occupat ional Health - Occupational Stress [...] things needed for daily living? No 11/13/2020 [place] Depression Scale Answer Date Recorded [place] Depression Scale Total 5 06/05/2021 The thought [...] on filedocumented in this encounter Care Teams [facility] Relationship Specialty Start Date End Date Provider, No Known [facility] [place] [address] PCP - General 12/04/20 documented as of this encounter
--- OUTSIDE RECORDS SUMMARY | 2025-07-14 07:33 | XMS_ITS | Clinical Summary ---
Author Organization Healthcare [place] [address] Care Team Providers Care Web Services Professional Name Role Phone Pcp, No Primary Care [...] Vaccines (1 - 3-dose SCDM series) 2024 [id number] Vaccine (3 - 2024- season) 2025 08/06/2021, [...] to complete this topic Insurance Care Teams Web Services Professional Relationship Specialty Start Date [place] [address] PCP - General Family Medicine 04/08/24
--- OUTSIDE RECORDS SUMMARY | 2025-07-14 07:33 | XMS_ITS | Clinical Summary ---
Author Organization [facility] Address [address] [place] [address] Care Team Providers Care Colliery Clerk Name Role Phone Johnathan Duenas M.D. Primary Care Provider [phone] Source Comments [facility] is fully rolled out with thefollowing exceptions:[facility] [place] Allerg[facility] No known active allergies Medications aspirin [...] on 05/18/24. Jillian Cisneros was referred to [facility] on 05/18/[address] Casper for [...] (MRI, ultrasound) with pediatric surgery, neonatology and [facility] ~ 32 weeks gestation, week of [...] on US today 05/31/2024: echo normal at [facility], will be for 32 weeks [...] hydrops. - Normal MCA and UA Dopplers. [facility] [place] PLAN OF CARE Jillian Cisneros was seen today in the [facility] for a diagnosis of previous [...] Labor (IOL) and a vaginal delivery at [facility] is anticipated at 39 weeks (if yours and Zac's health remains stable-which is routine OB standards); with a low threshold after 37 weeks Get set up with a career consultant to work with to help your milk come in Does an amnio procedure need to be scheduled for this patient? No PATIENT TO BE SCHEDULED FOR FOLLOW UP WITHIN: No follow up at [facility] needed Problem Noted Date Diagnosed Date [...] topic Insurance FRANCES BAIG NON-TRADITIONAL Care Teams Colliery Clerk Relationship Specialty Start Date End Date Johnathan Duenas M.D. [address] [address] PCP - General External Family Practice 05/30/24
--- OUTSIDE RECORDS SUMMARY | 2025-07-14 07:33 | XMS_ITS | Clinical Summary ---
Author Organization [facility] Address [address] [place] [address] Care Team Providers Care Senior Courtroom Clerk Name Role Phone Unknown, Attending Provider Primary [...] therelease of HIV test results or diagnoses. [id number] Allergies No known active allergies Medications [...] plan: To be determined at 32 week [facility] visit Known anomaly, antepartum 05/09/2024 Overview [...] on US today 05/31/2024: echo normal at [facility], will be for 32 weeks team [...] any time in the past 12 m [facility], were you homeless or living in a fci (including now)? No 05/07/2024 Yearly Questionnaire Answer [...] Date Last Done Comments Hepatitis C Screening ([email or web address]) 1997 Depression Screening 2015 Immunization: Hepatitis B (1 of 3 - 19+ 3-dose series) 2016 Cervical Cancer Screening/Pap Smear ([employer]) 2018 Renal Function/GFR 05/07/2025 05/07/2024, 05/06/2024 Diabetes Screening 05/17/2025 05/17/2024 Immunization: COVID-19 ( season) 2025 08/06/2021, 07/17/2021 Immunization: Influenza ([employer]) (#1) 06/27/2025 Immunization: DTaP/Tdap/Td (5 - Td or Tdap) [...] 1 Hour (05/17/2024 11:30 AM EDT) Pathologist [facility] Glucose Challenge, 1 Hr 132 mg/dL 05/17/2024 12:49 PM EDT [facility] Comment: 1 HOUR GLUCOSE CHALLENGE INTERPRETATION: Women/ Non Adult - 50 gram glucose load screening for gestational diabetes Expected normal response: A one hour glucose result of less than 140 mg/dL. Plasma 05/17/2024 11:3 0 AM EDT 05/17/2024 12:11 PM EDT us Timoteo Sosa MD LAB BLOOD ORDERABLES F inal Result [facility] [address] * (ABNORMAL) Comprehensive Metabolic Panel, STAT (05/07/2024 5:46 PM EDT) Pathologist [facility] Sodium 138 133 - 146 mmol/L 05/07/2024 6:30 PM EDT [facility] Potassium 3.6 3.5 - 5.3 mmol/L 05/07/2024 6:30 PM EDT [facility] Chloride 107 98 - 110 mmol/L 05/07/2024 6:30 PM EDT [facility] CO2 21 21 - 33 mmol/L 05/07/2024 6:30 PM EDT [facility] Anion Gap 10 3 - 16 mmol/L 05/07/2024 6:30 PM EDT [facility] BUN 4(L) 7 - 25 mg/dL 05/07/2024 6:30 PM EDT [facility] Creatinine 0.47(L) 0.60 - 1.30 mg/dL 05/07/2024 6:30 PM EDT [facility] Glucose 174(H) 70 - 100 mg/dL 05/07/2024 6:30 PM EDT [facility] Calcium 8.7 8.6 - 10.3 mg/dL 05/07/2024 6:30 PM EDT [facility] Total Bilirubin 0.4 0.0 - 1.5 mg/dL 05/07/2024 6:30 PM EDT [facility] AST 14 13 - 39 U/L 05/07/2024 6:30 PM EDT [facility] ALT 10 7 - 52 U/L 05/07/2024 6:30 PM EDT [facility] Alkaline Phosphatase 56 36 - 125 U/L 05/07/2024 6:30 PM EDT [facility] Total Protein 6.5 6.4 - 8.9 g/dL 05/07/2024 6:30 PM EDT [facility] Albumin 3.4(L) 3.5 - 5.7 g/dL 05/07/2024 6:30 PM EDT [facility] Osmolality, Calculated 287 278 - 305 mOsm/kg 05/07/2024 6:30 PM EDT [facility] EGFR >90 05/07/2024 6:30 PM EDT [facility] Comment: As of 2021, the [...] EDT 05/07/2024 6:02 PM EDT us Stefano aMe MD LAB BLOOD ORDERABLES Final Resul t [facility] [address] * , HIV 1/2 Ab+Ag with Reflex (05/06/2024 9:10 PM EDT) HIV 1+2 AB/AGN Nonreactive Nonreactive 05/06/2024 10:08 PM EDT [facility] Serum 05/06/2024 9:10 PM EDT 05/06/2024 9:21 PM EDT Narrative [facility] - 05/06/2024 10:08 PM EDT HIV-1 p24 Antigen and HIV-1/HIV-2 Antibody not detected. Fernando Leonard MD LAB BLOOD ORDERABLES Final Re sult Performing Organization Address City/[facility]/ZIP Co de Phone Number [facility] [address] [facility]. [address] from Last 3 Months or Most Recently Relevant to Health Maintenance Insurance [employer] [id number] BLUE ACCESS Advance Directives For more information, please contact: [phone] * Full Code (Latest Code Status on File) Date Activated Date Inactivated Comments 05/06/2024 8:33 PM 05/09/2024 5:04 PM Care Teams Senior Courtroom Clerk Relationship Specialty Start Date End Date Unknown, Attending Provider PCP - General 05/06/24
--- NOTE | 2025-07-14 08:30 | MR_ITS ---
FINAL REPORT CLINICAL HISTORY: evaluate ATFL/CFL partial tear, instability left foot and ankle pain pain going around heel hx of surgery 2019 COMPARISON: None FINDINGS: Multiplanar and multisequence imaging of the left ankle was obtained with and without intravenous contrast. Articular cartilage: Mild degenerative change and thinning of the articular cartilage involving the lateral ankle mortise. Surgical changes of fusion of the subtalar joint. Marrow signal: Unremarkable aside from hardware artifact. Joint fluid: Physiologic . Tendons: No evidence of tear Ligaments: Major ligaments unremarkable Plantar fascia: No evidence of tear or fasciitis. No abnormal contrast enhancement or mass. IMPRESSION: Chronic postoperative changes without evidence of mass or ligamentous abnormality. Reviewed, Interpreted and Dictated by Phil Dill MD Transcribed by Ariana Ross Authenticated and [facility]
[2025-07-14] MEDS: SODIUM CHLORIDE 0.9% 10ML SYR (RAD ONLY) 10 ML IV (09:57)
[2025-07-14] MEDS: GADOTERIDOL INJ 20ML SYRINGE 20 ML IV (09:57)
== END 2025-07-14 23:59 | disposition home or self-care (01) ==
LOC: RAD 07:31
PROVIDERS: PCP Family Medicine; Visit Provider Podiatrist
DX: M25.372 Other instability, left ankle (principal); M76.62 Achilles tendinitis, left leg; M25.872 Other specified joint disorders, left ankle and foot; S82.52XS Displaced fracture of medial malleolus of left tibia, sequela; Z96.9 Presence of functional implant, unspecified; Z98.890 Other specified postprocedural states; R93.6 Abnormal findings on diagnostic imaging of limbs
CPT/HCPCS: 73720; 73723; A9576

== ENCOUNTER 2025-07-29 00:10 | Emergency (ER) | payer BC, SELFPAY ==
--- OUTSIDE RECORDS SUMMARY | 2025-03-18 10:30 | XMS_ITS ---
Author Organization [facility] Address [address] [place] [phone] Care Team Providers Care Soybean Specialties Cook Name Role Phone Johnathan Duenas Primary Care Provider REASON FOR VISIT fu blood work for thyroid Encounters Encounter Location Date Provider Diagnosis [facility] [address] [place] [phone] 03/18/2025 Johnathan Duenas Plan Of Treatment No Information Progress Notes * MOHAN GODINEZHIRALOB:1995 (29 yo F)Acc No.[id number]:03/18/2025 Patient: ISABELA HELMS Provider: Ramesh Duenas M.D. :1995 A ge:29 Y S ex:Female Date:03/18/2025 Address:[address] [place], [place] Subjective: * Chief Complaints: * 1 . Fu blood work for thyroid. * 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: Objective: * Vitals: Assessment: Plan: * Treatment: * Images: Billing Information: * Visit Code: * Procedure Codes: * Electronic signature of Sharda Duenas MD on 07/29/2025 at 12:23 AM EDT Sign off status: Pending * Provider: Ramesh Duenas M.D. Date: 0 03/18/2025 Generated for Reggie stone/Leslie/eTransmitting on: 1 12:23 AM EDT
--- OUTSIDE RECORDS SUMMARY | 2025-05-11 11:00 | XMS_ITS ---
Author Organization [facility] Address [address] [facility] [address] [place] [id number] Care Team Providers Care Network Engineer Name Role Phone Johnathan Duenas Primary Care [...] Interpretation:Normal Performing Lab: Notes/Report: Test performed by [facility] [address] [place], [place] [address] [place] , [address], [place] [address] Nick Brady MD, Aging Box Hand CLIA: [id number] Amylase 42 28-100 U/L P-Antistreptolysin O AB Reviewed date:05/13/2025 09:49:59 AM Interpretation:Normal Performing Lab: Notes/Report: Test performed by [facility] [address] [place], [place] [address] [employer] [facility] [place] , [address], [place] [address] Nick Brady MD, Aging Box Hand CLIA: [id number] Antistreptolysin O AB 175.0 <20-200.0 IU/mL P-Comprehensive Metabolic Pa helio (CMP) Reviewed date:05/13/2025 09:49:59 AM Interpretation:bili 1.4 Performing Lab: Notes/Report: Test performed by [facility] [address] [place] [address] , [place] [address] Nick Brady MD, Aging Box Hand CLIA: [id number] Sodium 137 135-145 mmol/L Potassium 4.1 3.5-5.3 [...] Interpretation:Reactive Performing Lab: Notes/Report: Test performed by [facility] [address] [place] [address] [place] [address] Nick Brady MD, Aging Box Hand CLIA: [id number] Cytomegalovirus (CMV) Antibody, IgG Reactive Non-Reactive This [...] >8 Performing Lab: Notes/Report: Test performed by [facility] [address] [place] [address] , [address], [place] [address] Nick Brady MD, Aging Box Hand CLIA: [id number] Deidre Dewey Virus (EBV) VCA Antibodies IgG >8.0 <0.9 AI Deidre Dewey Virus (EBV) VCA Antibodies IgM 0.3 <0.9 AI P-Sed Rate (ESR) Reviewed date:05/13/2025 09:50:00 AM Interpretation:Normal Performing Lab: Notes/Report: Test performed by [facility] [address] , [address], [place] [address] Nick Brady MD, Aging Box Hand CLIA: [id number] Erythrocyte Sedimentation Ra te (ESR), Automated 18 <26 mm/hr P-Lipase Reviewed date:05/13/2025 09:50:00 AM Interpretation:Normal Performing Lab: Notes/Report: Test performed by [facility] [address] [place] [address] , [address], [place] [address] Nick Brady MD, Aging Box Hand CLIA: [id number] Lipase 19.8 13.0-60.0 U/L REASON FOR VISIT 6 months Medications Medication SIG (Take, Route, Fr equency, Duration) Notes Start Date End Date Status Multi Vitamin - 1 tablet Orally Once a day; Duration: 30 day(s) Active Nystatin 482318 UNIT/GM 1 application Ex ternally Twice a [...] Status W/U Status Risk Notes Problem Thrombocytopenia (202267062) Thrombocytopenia (D69.6) Active confirmed Vital Signs Weight 221 lbs 05/11/2025 Blood pressure systolic 110 mm Hg 05/11/20 25 Blood pressure diastolic 70 mm Hg 025 Heart Rate 80 /min 05/11/2025 Height 61.5 in 05/11/2025 BMI 41.08 kg/m2 05/11/2025 Encounters Encounter Location Date Provider Diagnosis [facility] [address] [place], [place] [phone] 05/11/2025 Johnathan Duenas Fever, unspecified R 50.9 [...] Sig Start Date Stop Date Notes Nystatin 731500 UNIT/GM 1 application Ex ternally Twice a day 05/11/2025 Omeprazole 40 MG 1 capsule 1/2 to 1 h our before morning meal Orally Once a day; Duration: 30 days 05/11/2025 Next Appt Details Follow Up: via phone to repo rt progress, Reason: Progress Notes * JOYCELYN GODINEZOB:1995 (29 yo F)Acc No.[id number]:05/11/2025 Progress Notes Patient: MOHAN HELMSNE Provider: Ramesh Duenas M.D. :1995 A ge:29 Y S ex:Female Date:05/11/2025 Address:[place], [id number] Subjective: * Chief Complaints: * 1 . [...] states she did go to [facility] 04/05 and tested negative for strep throat. [...] onsillectomy 1999, Bilateral Ankles 2018, Cholecystectomy 2016, [place] Teeth 2013, D & C 2019, Tubal [...] phone encounter 6.?Skin rash? Start Nystatin Cream, 022329 UNIT/GM, 1 application, Externally, Twice a day, 30 grams, Refills 1. ? * Procedure Codes: 8 5025 CBC WITH AUTO DIFF, 44293 STREP A ASSAY W/OPTIC, Modifiers: QW , 1036F TOBACCO NON-USER, 3074F SYST BP LT 130 MM HG, 3078F DIAST BP < 80 MM HG * Follow Up: v ia phone to report progress * Images: Billing Information: * Visit Code: 10842 Office Visit, Est Pt., Level 4. * Procedure Codes: 49258 CBC WITH AUTO DIFF. 06877 STREP A ASSAY W/OPTIC. Modifiers: QW 1036F TOBACCO NON-USER. 3074F SYST BP LT 130 MM HG. 3078F DIAST BP < 80 MM HG. * Electronic signature of Sharda Duenas MD on 07/29/2025 at 12:23 AM EDT Sign off status: Pending * Provider: Ramesh Duenas M.D. Date: 0 05/11/2025 Generated for Printi ng/Faxing/eTransmitting on: 1 12:23 AM EDT History and Physical Notes * HPI (History of Present Illness) Category Sub-Category Detail Notes Category Not es ENT/respiratory sore throat Pt complains of sore throat for over a month. Associated with fever, nausea and stomach pain. Pt states she did go to [facility] 04/05 and tested negative for strep throat. [...]
--- OUTSIDE RECORDS SUMMARY | 2025-05-31 11:45 | XMS_ITS ---
Author Organization [facility] Address 1210 [facility] [address] [place] [id number] Care Team Providers Care Bordereau Clerk Name Role Phone Johnathan Duenas Primary Care Provider [phone] Results Component Value Reference Range Notes CBC [...] Provider Diagnosis [place] [address] [facility] [address] [place] [phone] 05/31/2025 Johnathan Duenas Thrombocytopenia D69 .6 Assessments Encounter Date Diagnosis (ICD Code) Assessment Notes Treatment Notes Treatment Clinical Notes Section Notes 05/31/2025 Thrombocytopenia (ICD-10 - D69.6) Plan Of Treatment No Information Progress Notes * GRETCHENMOHAN SOTOMAYORHIRALOB:1995 (29 yo F)Acc No.[id number]:05/31/2025 Patient: ISABELA HELMS Provider: Ramesh Duenas M.D. :1995 A ge:29 Y S ex:Female Date:05/31/2025 Address:[address] [id number] Subjective: * Chief Complaints: * 1 . [...] Procedure Codes: 3 6416 CAPILLARY BLOOD DRAW, 74882 CBC WITH AUTO DIFF * Images: Billing Information: * Visit Code: * Procedure Codes: 01033 CAPILLARY BLOOD DRAW. 11941 CBC WITH AUTO DIFF. * Electronic signature of Sharda Duenas MD on 07/29/2025 at 12:23 AM EDT Sign off status: Pending * Provider: Ramesh Duenas M.D. Date: 0 05/31/2025 Generated for Reggie stone/Leslie/Bill on: 1 12:23 AM EDT
--- OUTSIDE RECORDS SUMMARY | 2025-06-13 05:08 | XMS_ITS ---
Author Organization [facility] Address 1210 [facility] 36 [facility] [address] [place] [phone] Care Team Providers Care Supervisor Instrument Maintenance Name Role Phone Johnathan Duenas Primary Care Provider Reason For Referral Diagnosis 1 Rash (R21) Referral Organization [facility] Referring Provider First Name Johnathan Referring Provider Last Name Yulissa Referring Provider Speciality Family Pra ctice Referred Provider Herber Ojeda Referred Provider Specialty Dermatology General Notes Zuleyka Lin 2024 10:44:17 AM > faxed to Dr. Ojeda at [facility] Referral Priority Routine REASON FOR VISIT Message Encounters Encounter Location Date Provider Diagnosis [place] [address] [place] [phone] 06/13/2025 Johnathan Duenas Rash R21 Assessments Encounter Date Diagnosis (ICD Code) Assessment Notes Treatment Notes Treatment Clinical Notes Section Notes 06/13/2025 Rash (ICD-10 - R21) Plan Of Treatment Referrals Referral Date Details 06/13/2025 06/13/2025eHrber Progress Notes * JOYCELYN GODINEZOB:1995 (29 yo F)Acc No.[id number]:06/13/2025 Patient: ISABELA HELMS :1995 A ge:29 Y S ex:Female Address:[place] [address] Subjective: * Chief Complaints: * M essage * 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: * Surgical History: * Hospitalization/Major Diagno stic Procedure: * Medications: Objective: * Vitals: * Physical Examination: Assessment: * Assessment: 1. R bri - R21 (Primary) Plan: * Treatment: * Procedure Codes: * true * Date: Generated for Reggie stone/Leslie/Bill on: 1 12:23 AM EDT Consultation Request Notes Referral Date Referring Provider Referred Provider Not es 06/13/2025 Johnathan Duenas [place]
--- OUTSIDE RECORDS SUMMARY | 2025-06-30 10:51 | XMS_ITS ---
Author Organization Laura Address [facility] 36 [facility] [address] [place] [id number] Care Team Providers Care Clinical Unit Coordinator Name Role Phone Johnathan Duenas Primary Care Provider Reason For Referral Diagnosis 1 Generalized abdomina l pain (R10.84) Diagnosis 2 Abdominal bloating ( R14.0) Diagnosis 3 Chronic nausea (R11. 0) [facility] Referring Provider First Name Johnathan Referring Provider Last Name Yulissa Referring Provider Speciality Family Pra ctice Referred Organization [facility] OP Referred Provider JOSHUA BERNARDO Referred Address [address] [place], [place] [phone], Referred Provider Specialty Gastroentero logy General Notes Zuleyka Lin 2024 09:03:00 AM > faxed to [facility] Referral Priority Routine REASON FOR VISIT Needs referral Encounters Encounter Location Date Provider Diagnosis [place] [address] [facility] 36 [facility] [address] [place] [id number] 06/30/2025 Johnathan Duenas Generalized abdomina l pain R10.84 ; Abdominal bloating R14.0 and Chronic nausea R11.0 Assessments Encounter Date Diagnosis (ICD Code) Assessment Notes Treatment Notes Treatment Clinical Notes Section Notes 06/30/2025 Generalized abdominal pain (ICD-10 - R10.84) 06/30/2025 Abdominal bloating (ICD-10 - R14.0) 06/30/2025 Chronic nausea (ICD-10 - R11.0) Plan Of Treatment Referrals Referral Date Details 07/13/2025 07/13/2025, JOSHUA MAK, [address] [facility] 36 [facility], [facility] [place], [id number], Progress Notes * MOHAN GODINEZHIRALOB:1995 (29 yo F)Acc No.[id number]:06/30/2025 Patient: ISABELA HELMS :1995 A ge:29 Y S ex:Female Address:[place] [address] Subjective: * Chief Complaints: * N eeds referral * 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: * Surgical History: * Hospitalization/Major Diagno stic Procedure: * Medications: Objective: * Vitals: * Physical Examination: Assessment: * Assessment: 1. G eneralized abdominal pain - R10.84 (Primary) 2 . A bdominal bloating - R14.0 3 . C hronic nausea - R11.0 Plan: * Treatment: 2. A bdominal bloating Referral To:JOSHUA BERNARDO Gastroenterology Reason: 3. C hronic nausea Referral To:JOSHUA BERNARDO Gastroenterology Reason: * Procedure Codes: * true * Date: Generated for Reggie stone/Leslie/eTransmitting on: 12:23 AM EDT Consultation Request Notes Referral Date Referring Provider Referred Provider Not es 07/13/2025 Johnathan Duenas EARL
[2025-07-29 00:18] VITALS: BP 117/83; PULSE 74; RESP 16; TEMP 36.8; O2SAT 99; BMI 41.1
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
--- OUTSIDE RECORDS SUMMARY | 2025-07-29 00:22 | XMS_ITS | Clinical Summary ---
Author Organization [facility] Address [address] [place] [address] Care Team Providers Care Cryptography Teacher Name Role Phone Johnathan Duenas M.D. Primary Care Provider [phone] Source Comments [facility] is fully rolled out with thefollowing exceptions:[facility] Allerg[facility] No known active allergies Medications [...] on 05/18/24. Jillian Cisneros was referred to [facility] on 05/18/[address] Casper for [...] (MRI, ultrasound) with pediatric surgery, neonatology and [facility] ~ 32 weeks gestation, week of Labor [...] on US today 05/31/2024: echo normal at [facility], will be for 32 weeks [...] hydrops. - Normal MCA and UA Dopplers. [facility] [place] PLAN OF CARE Jillian Cisneros was seen today in the [facility] for a diagnosis of previous [...] Labor (IOL) and a vaginal delivery at [facility] is anticipated at 39 weeks (if yours and Zac's health remains stable-which is routine OB standards); with a low threshold after 37 weeks Get set up with a change management consultant to work with to help your milk come in Does an amnio procedure need to be scheduled for this patient? No PATIENT TO BE SCHEDULED FOR FOLLOW UP WITHIN: No follow up at [facility] needed Problem Noted Date Diagnosed [...] topic Insurance FRANCES [employer]IG NON-TRADITIONAL Care Teams Cryptography Teacher Relationship Specialty Start Date End Date Johnathan Duenas M.D. [address] [address] PCP - General External Family Practice 05/30/24
--- OUTSIDE RECORDS SUMMARY | 2025-07-29 00:22 | XMS_ITS | Clinical Summary ---
Author Organization [facility] Address [address] [place] [address] Care Team Providers Care Color Grinder Name Role Phone Unknown, Attending Provider Primary [...] therelease of HIV test results or diagnoses. 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 No 05/07/2024 Yearly Questionnaire Answer [...] Date Last Done Comments Hepatitis C Screening ([employer]) 1997 Depression Screening 2015 Immunization: Hepatitis B (1 of 3 - 19+ 3-dose series) 2016 Cervical Cancer Screening/Pap Smear ([employer]) 2018 Renal Function/GFR 05/07/2025 05/07/2024, 05/06/2024 Diabetes Screening 05/17/2025 05/17/2024 Immunization: COVID-19 ( season) 2025 08/06/2021, 07/17/2021 Immunization: Influenza ([employer]) (#1) 2025 Immunization: DTaP/Tdap/Td (5 - Td [...] 1 Hour (05/17/2024 11:30 AM EDT) Pathologist [facility] Glucose Challenge, 1 Hr 132 mg/dL 05/17/2024 12:49 PM EDT [facility] Comment: 1 HOUR GLUCOSE CHALLENGE INTERPRETATION: Women/ Non Adult - 50 gram glucose load screening for gestational diabetes Expected normal response: A one hour glucose result of less than 140 mg/dL. Plasma 05/17/2024 11:3 0 AM EDT 05/17/2024 12:11 PM EDT us Timoteo Sosa MD LAB BLOOD ORDERABLES F inal Result [facility] [address] * (ABNORMAL) Comprehensive Metabolic Panel, STAT (05/07/2024 5:46 PM EDT) Pathologist [facility] Sodium 138 133 - 146 mmol/L 05/07/2024 6:30 PM EDT [facility] Potassium 3.6 3.5 - 5.3 mmol/L 05/07/2024 6:30 PM EDT [facility] Chloride 107 98 - 110 mmol/L 05/07/2024 6:30 PM EDT [facility] CO2 21 21 - 33 mmol/L 05/07/2024 6:30 PM EDT [facility] Anion Gap 10 3 - 16 mmol/L 05/07/2024 6:30 PM EDT [facility] BUN 4(L) 7 - 25 mg/dL 05/07/2024 6:30 PM EDT [facility] Creatinine 0.47(L) 0.60 - 1.30 mg/dL 05/07/2024 6:30 PM EDT [facility] Glucose 174(H) 70 - 100 mg/dL 05/07/2024 6:30 PM EDT [facility] Calcium 8.7 8.6 - 10.3 mg/dL 05/07/2024 6:30 PM EDT [facility] Total Bilirubin 0.4 0.0 - 1.5 mg/dL 05/07/2024 6:30 PM EDT [facility] AST 14 13 - 39 U/L 05/07/2024 6:30 PM EDT [facility] ALT 10 7 - 52 U/L 05/07/2024 6:30 PM EDT [facility] Alkaline Phosphatase 56 36 - 125 U/L 05/07/2024 6:30 PM EDT [facility] Total Protein 6.5 6.4 - 8.9 g/dL 05/07/2024 6:30 PM EDT [facility] Albumin 3.4(L) 3.5 - 5.7 g/dL 05/07/2024 6:30 PM EDT [facility] Osmolality, Calculated 287 278 - 305 mOsm/kg 05/07/2024 6:30 PM EDT [facility] EGFR >90 05/07/2024 6:30 PM EDT [facility] Comment: As of 2021, the estimated [...] MD LAB BLOOD ORDERABLES Final Resul t [facility] [address] * , HIV 1/2 Ab+Ag with Reflex (05/06/2024 9:10 PM EDT) HIV 1+2 AB/AGN Nonreactive Nonreactive 05/06/2024 10:08 PM EDT [facility] Serum 05/06/2024 9:10 PM EDT 05/06/2024 9:21 PM EDT Narrative [facility] - 05/06/2024 10:08 PM EDT HIV-1 p24 Antigen and HIV-1/HIV-2 Antibody not detected. Fernando Leonard MD LAB BLOOD ORDERABLES Final Re sult Performing Organization Address City/[facility]/ZIP Co de Phone Number [facility] [address] [facility]. [address] from Last 3 Months or Most Recently Relevant to Health Maintenance Insurance [employer] [phone] BLUE ACCESS Advance Directives For more information, please contact: [phone] * Full Code (Latest Code Status on File) Date Activated Date Inactivated Comments 05/06/2024 8:33 PM 05/09/2024 5:04 PM Care Teams Color Grinder Relationship Specialty Start Date End Date Unknown, Attending Provider PCP - General 05/06/24
--- OUTSIDE RECORDS SUMMARY | 2025-07-29 00:22 | XMS_ITS | Clinical Summary ---
Author Organization Healthcare [place] [address] Care Team Providers Care Elevators Inspector Name Role Phone Pcp, No Primary Care [...] Vaccines (1 - 3-dose SCDM series) 2024 [id number] Vaccine (3 - 2024- season) 2025 08/06/2021, [...] to complete this topic Insurance Care Teams Elevators Inspector Relationship Specialty Start Date [place] [address] PCP - General Family Medicine 04/08/24
--- OUTSIDE RECORDS SUMMARY | 2025-07-29 00:22 | XMS_ITS | Encounter Summary ---
Author Organization [facility] Address [address] [place] [address] Care Team Providers Care Dog Licenser Name Role Phone Johnathan Duenas M.D. Primary Care Provider [phone] Reason for Visit * Reason Onset Date Comments Financial - Insurance 05/18/2024 Schedule Appointment 05/19/2024 Encounter Details Date Type Department Care Team (Late st Contact Info) Description 05/18/2024 Telephone [facility] [address] [place] [phone] Juliana [employer] - Insurance; Schedule [...] Needed For Provider(s): Lilliana For CPT Codes: [id number], 07517i9, 82775q4, 34630i9, 19924p4, 34374, 73669, 94928, 18266, 33417, 22107, 56009, 15631, 77683, 70109 Qty x 4, 52715, 91219, 31585, 37221, Qty X1 Diagnosis Code: O35.8XX0 For Dates of Service: 06.29.24-08.29.24 Auth/ reference number #: NA Per Availity Phone/Fax: Patient has [employer] Insurance Additional Notes: Radiology to authorize the [...] insurance guidelines. Patient has [employer] insurance. ID Number:[id number] Effective Date: 10.27.2023 Plan Type: COMMERCIAL PPO Deductible: $1,500 ($0 REM) Coinsurance: 80/20 Out of Pocket: $2,500 ($0 REM) OV Copay: $35 In Network: yes Is it a Covered Benefit?: yes Is a SCA needed: no documented in this encounter Plan of Treatment Not on file documented as of this encounter Visit Diagnoses Not on filedocumented in this encounter Care Teams Dog Licenser Relationship Specialty Start Date End Date Johnathan Duenas M.D. [address] [place] [address] PCP - General External Family Practice 05/30/24 documented as of this encounter
--- OUTSIDE RECORDS SUMMARY | 2025-07-29 00:22 | XMS_ITS | Data Portability ---
Author Organization [facility] [place] [facility] Address [address] [facility] [address] [place] [address] Assessment No assessment recorded. Plan of Treatment Reminders Order Date Submit Date Provider Last Modified By Organization Details Last Modified Time Details Appointments None recorded. Lab TSH, serum or plasma 2024 025 [facility], [address] [place] [address], [phone], 5 12:55:28 T4, free, serum 2024 025 [facility], [address] [place] [address], [phone], 5 12:55:29 T3, free, serum or plasma 2024 025 [facility], [address] [place] [address], [phone], 5 12:55:26 tsi (thyroid-st imulating immunoglobu gab), serum 2024 025 [facility], [address] [place] [address], [phone], 5 17:55:21 thyroid peroxidase (tpo) Ab, serum 2024 025 [facility], [address] [place] [address], [phone], 5 16:48:25 Referral None recorded. Procedures None recorded. Surgeries None recorded. Imaging None recorded. Medication Orders None recorded. Patient TargetsNo targets recorded. Patient InstructionsNo instructions recorded. Reason for Referral None Reported. Results Created Date Observation Date Name Description Value Unit Range Abnormal Flag Note LastModifiedBy Organization Detail LastModifiedTime 03/23/2003/23/2025 T3 FREE T3 free 3.00 pg/mL 2.00-4 .40 normal Not Available [facility] [address] [place] [address], [phone], 03/23/2025 12:55:26 03/23/20 25 03/23/2025 TSH TSH 0.019 u[IU] /mL 0.270- 4.200 low Not Available [facility] [address] [place] [address], [phone], 03/23/2025 12:55:28 03/23/20 25 03/23/2025 T4,FR EE T4,free 1.14 NG/dL 0.93-1 .70 normal Not Available [facility] [address] [place] [address], [phone], 03/23/2025 12:55:29 03/23/20 25 03/24/2025 THYRO ID PEROX IDASE AB thyroid peroxidase Ab 1 IU/mL <9 normal Not Available [facility] [address] [place] [address], [phone], 03/24/2025 16:48:25 03/23/20 25 03/29/2025 THYRO ID STIMU LATIN G IGS thyroid stimulating igs <89 %_bas ghazal <140 normal Thyro id stimu latin g immun oglob ulins (TSI) can engag e the TSH marine engineer cpvec tors resul ting in hyper thyro idism [...] fere with the TSI bioas say and poten tiall y give false posit ramakrishna resul ts. [...] been deter mined by [facility] greg Flaherty . The modif icati ons have not been clear ed or appro victroino by the FDA. This assay has been valid ated pursu ant to the CLIA regul ation s and is used for clini ana purpo ses. Not Available [facility] [address] [place] [address], [phone], 03/29/2025 17:55:21 04/20/2004/20/2025 TSH TSH 1.070 u[IU] /mL 0.270- 4.200 normal Not Available [facility] [address] [place], [address], 04/20/2025 09:37:58 04/20/2004/20/2025 T4,FR EE T4,free 0.96 NG/dL 0.93-1 .70 normal Not Available [facility] [address] [place] [address], [phone], 04/20/2025 09:37:59 04/20/2004/20/2025 T3 FREE T3 free 2.93 pg/mL 2.00-4 .40 normal Not Available [facility] [address] [place], [phone], 04/20/2025 09:38:01 04/01/20 25 01/03/2025 US, thyro id No observ ation record ed. Not Available 2024 08:24:49 Result Notes None [...] Body mass index (BMI) Body height Systolic And Diastolic Provider Name and Address Organization Details Last Updated DateTime 03/23/2025 95977.6 g 41.5 kg/m2 154.94 cm 112/68 mm[Hg] David Johns [facility] 03/23/2025 11:18:55 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 None recorded. Functional Status None recorded. Mental Status None recorded. Family History Nothing Reported. 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 No medical history recorded. Gynecological HistoryNo gynecological history recorded. Obstetrics History GPAL:G 0 P 0 0 0 0 Past Encounters Encounter ID Performer Location Encounter Start Date Encounter Closed Date Diagnosis/Indication Diagnosis SNOMED-CT Code Diagnosis ICD10 Code Diagnosis IMO Codes Diagnosis Note [id number] STANISLAW LOVE APRN [address] [place] [address] 03/23/2025 11:03:56 03/23/2025 11:53:33 Hyperthyroidism 28704520 E05.90 77205 No referral labs on fileDiagno december of this year per PCP.Amita t states [...] Member ID Echols Member ID Guarantor Name 04/22/2025 1 [employer] [id number] Césarraymundo Blayne [id number] Jillian Blayne Notes Date Note Type [...] anxiety and rapid heart rate. STANISLAW LOVE, PRETZEL TWISTER [address] [place], [address], [facility] 03/23/2025 12:47:06 OBGyn Episode No OBEpisode recorded.
--- OUTSIDE RECORDS SUMMARY | 2025-07-29 00:23 | XMS_ITS | Data Portability ---
Author Organization [place] - [facility] [place] & KARLA Martinez ADMIN Address [address] [place] [address] Care Team Providers Care [employer] Supervisor Name Role Phone CASSANDRA RUIZ Primary Care [...] Telehealth visit is being conducted from [address] [place] [address]. This was a real-time clinical encounter over [[email or web address] ]. Consent was obtained to engage in [...] ELECTED TO PROCEED WITH THE VISIT. Mrs. Godinez was referred by Dr. Persaud [...] up in 2 weeks to reassess pain. [email or web address] Not available 08/26/2022 15:22:52 12/30/2022 12/30/2022 Mrs. [...] have further discussion regarding SI Joint injection. [email or web address] Not available 12/30/2022 17:02:39 Plan of Treatment Reminders Order Date Submit Date Provider Last Modified By Organization Details Last Modified Time Details Appointments None recorded. Lab CBC w/ auto diff 2022 023 [facility] (Lab Registration) , [address] [place] [address] [place], [address], 3 16:03:52 Referral None recorded. Procedures upper endoscopy procedure (EGD) (PROC) 2022 023 [email or web address] 4 Not available 3 08:07:22 upper endoscopy procedure (EGD) (PROC) 2022 023 [email or web address] 4 Not available 3 08:07:23 colonoscopy procedure (PROC) 2022 023 [email or web address] 4 Not available 3 16:11:29 injection, trigger point (PROC) - 34549, 89962 bilateral paracervica l muscles including trapezius and levator scapulae 2022 023 [email or web address] 7 Not available 3 16:28:35 epidural steroid injection, lumbar (PROC) - 44391 lei l5-s1 2021 022 BARBARA Not available 11:45:00 Surgeries None recorded. Imaging XR, abdomen, 1 view - Rule out stool burden. [address] ([facility]), [address] [place] [address] [place], [id number], 3 09:13:57 Medication Orders pantoprazol e 40 mg tablet,mckinley yed release 2022 023 [facility], [address], [address], 3 11:46:52 Miralax 17 gram/dose oral powder [address] [facility], [address], [address], 3 16:03:52 Dulcolax (bisacodyl) 5 mg tablet,mckinley yed release [address] [facility], [address], [address], 3 16:03:52 Patient TargetsNo targets recorded. Patient Instructions Encounter Date Encounter Id Patient Instructions Last Modified By Organization Details Last Modified Time 08/05/2022 [id number] I have discussed in great detail our [...] __ __ __ __ __ _ LATHA: [id number] I have reviewed patient's LATHA report prior to prescribing Schedule II, III, and IV medications that require review by law. [email or web address] Not available 08/06/2022 14:59:07 08/26/2022 [id number] I have discussed in great detail our [...] __ __ __ __ __ _ LATHA: [id number] I have reviewed patient's LATHA report prior to prescribing Schedule II, III, and IV medications that require review by law. Not available 08/26/2022 15:22:44 12/30/2022 [id number] I have discussed in great detail our [...] __ __ __ __ __ _ LATHA: [id number] I have reviewed patient's LATHA report prior to prescribing Schedule II, III, and IV medications that require review by law. [email or web address] Not available 12/30/2022 17:00:21 Reason for Referral None Reported. Results Created Date Observation Date Name Description Value Unit Range Abnormal Flag Note LastModifiedBy Organization Detail LastModifiedTime 03/19/2003/19/2023 CBC AUTO W DIFF WBC 6.0 10 4.5-11 .5 Not Available [facility] (Lab Registration) [address], [place], [address], 03/19/2023 12:16:40 03/19/2003/19/2023 CBC AUTO W DIFF RBC 4.19 10 4.25-5 .57 low Not Available [facility] (Lab Registration) [address] [place], [address], 03/19/2023 12:16:40 03/19/20 23 03/19/2023 CBC AUTO W DIFF HGB 12.4 g/dL 12.0-1 5.7 Not Available [facility] (Lab Registration) [address] [place], [address], 03/19/2023 12:16:40 03/19/20 23 03/19/2023 CBC AUTO W DIFF HCT 37.1 % 36.0-4 7.0 Not Available [facility] (Lab Registration) [address] [place], [address], 03/19/2023 12:16:40 03/19/20 23 03/19/2023 CBC AUTO W DIFF MCV 88.5 fL 80-95 Not Available [facility] (Lab Registration) [address] [place], [address], 03/19/2023 12:16:40 03/19/20 23 03/19/2023 CBC AUTO W DIFF MCH 29.6 pg 27.0-3 4.0 Not Available [facility] (Lab Registration) [address] [place], [address], 03/19/2023 12:16:40 03/19/20 23 03/19/2023 CBC AUTO W DIFF MCHC 33.4 g/dL 32.0-3 6.0 Not Available [facility] (Lab Registration) [address] [place], [address], 03/19/2023 12:16:40 03/19/20 23 03/19/2023 CBC AUTO W DIFF platelet count 205 10 150-45 0 Not Available [facility] (Lab Registration) [address] [place], [address], 03/19/2023 12:16:40 03/19/20 23 03/19/2023 CBC AUTO W DIFF RDW 14.4 % 12.3-1 5.1 Not Available [facility] (Lab Registration) [address] [place], [id number], 03/19/2023 12:16:40 03/19/20 23 03/19/2023 CBC AUTO W DIFF MPV 10.0 fL 7.4-10 .4 Not Available [facility] (Lab Registration) [address] [place], [id number], 03/19/2023 12:16:40 03/19/20 23 03/19/2023 CBC AUTO W DIFF granulocyte% 61.9 % 40-75 Not Available [facility] (Lab Registration) [address] [place], [address], 03/19/2023 12:16:40 03/19/20 23 03/19/2023 CBC AUTO W DIFF lymphocyte% 29.8 % 15-57 Not Available [facility] (Lab Registration) [address] [place], [address], 03/19/2023 12:16:40 03/19/20 23 03/19/2023 CBC AUTO W DIFF monocyte% 5.7 % 4.0-12 .0 Not Available [facility] (Lab Registration) [address] [place], [address], 03/19/2023 12:16:40 03/19/20 23 03/19/2023 CBC AUTO W DIFF eosinophil% 2.2 % 0.0-4. 0 Not Available [facility] (Lab Registration) [address] [place], [id number], 03/19/2023 12:16:40 03/19/20 23 03/19/2023 CBC AUTO W DIFF basophil% 0.2 % 0.0-1. 0 Not Available [facility] (Lab Registration) [address] [place], [address], 03/19/2023 12:16:40 03/19/20 23 03/19/2023 CBC AUTO W DIFF immature granulocytes % 0.2 % 0.0-0. 8 Not Available [facility] (Lab Registration) [address], [place], [address], 03/19/2023 12:16:40 03/19/20 23 03/19/2023 CBC AUTO W DIFF granulocyte# 3.72 10 Not Available [facility] (Lab Registration) [address] [place], [address], 03/19/2023 12:16:40 03/19/20 23 03/19/2023 CBC AUTO W DIFF lymphocyte# 1.79 10 Not Available [facility] (Lab Registration) [address] [place], [address], 03/19/2023 12:16:40 03/19/20 23 03/19/2023 CBC AUTO W DIFF monocyte# 0.34 10 Not Available [facility] (Lab Registration) [address] [place], [address], 03/19/2023 12:16:40 03/19/20 23 03/19/2023 CBC AUTO W DIFF eosinophil# 0.13 10 Not Available [facility] (Lab Registration) [address] [place], [address], 03/19/2023 12:16:40 03/19/20 23 03/19/2023 CBC AUTO W DIFF basophil# 0.01 10 Not Available [facility] (Lab Registration) [address] [place], [address], 03/19/2023 12:16:40 03/19/20 23 03/19/2023 CBC AUTO W DIFF immature granulocytes # 0.01 10 Not Available [facility] (Lab Registration) [address] [place], [address], 03/19/2023 12:16:40 03/19/20 23 03/19/2023 CBC AUTO W DIFF manual differential NO Not Available [facility] (Lab Registration) [address] [place], [address], 03/19/2023 12:16:40 03/19/20 23 03/19/2023 CBC AUTO W DIFF note Unles s other perez noted testi ng perfo rmed at: [facility] [address] [place] [address] [phone] Ayden brady MD CLIA: [id number] Not Available [facility] (Lab Registration) [address] [place], [address], 03/19/2023 12:16:40 04/02/20 23 04/02/2023 URINE PREGN MY TEST urine test NEGATI VE negati ve Not Available [facility] (Lab Registration) [address] [place], [address], 04/02/2023 11:07:40 04/02/20 23 04/02/2023 URINE PREGN MY TEST internal control PASS PASS Not Available [facility] (Lab Registration) [address] [place], [address], 04/02/2023 11:07:40 04/02/20 23 04/02/2023 URINE PREGN MY TEST note Unles s other perez noted testi ng perfo rmed at: [facility] [address] [place] [address] [phone] Ayden brady MD CLIA: [id number] Not Available [facility] (Lab Registration) [address] [place], [address], 04/02/2023 11:07:40 05/14/20 23 05/14/2023 XR, abdom en, 1 view No observ ation record ed. [email or web address] [facility] (Radiology) [address] [place], [address], 05/16/2023 13:55:43 05/14/20 23 05/14/2023 XR, abdom en, 1 view [facility] [address] [facility] [place] [address] Phone: Fax: Name: GULSHAN GODINEZ Exam Date: : 1994 Age 27 Gender : F Access ion: [id number] Physic santiago: MEMO AHMADI Facili ty: [facility] Facili ty HSV: Outpat ient Exam: [...] ribed By: CONSUELO FRENCH Transc ribed On: 3:53 PM Electr onical ly signed by: CONSUELO FRENCH Thank you for referr ing GULSHAN GODINEZ to [facility]. Legall y authen ticate d by POPE CONSUEOL Kern DO 05-14 15:53: 44 CC'ed Logic: Orderi ng Provid er: KEATON Ortega CC Provid er: NICHOL ROA Attend ing Provid er: KEATON Ortega Referr ing Provid er: KEATON Ortega Admitt ing Provid er: KEATON Ortega [email or web address] [facility] (Radiology) [address] [place] [address] [place], [address], 05/16/2023 13:55:43 Result Notes Documentation Provider Name and Address Organization Details Recorded Time Xr, Abdomen, 1 View : [address] [place] [address] Name: ISABELA GODINEZ Exam Date: 05/14/2023 : 1995 Age 27 Gender: F Physician: NOEMI AHMADI Facility: [facility] Facility HSV: Outpatient Exam: [id number] [id number] KUB. HISTORY: Left upper quadrant pain COMPARISON: None. FINDINGS: A single view of the abdomen demonstrates a nonspecific bowel gas pattern. 4 mm calcification superior to right iliac crest, favored not to be within the ureter or kidney, possibly a fecalith. Consider CT if clinically warranted. Mild retained stool, correlate for constipation. No acute osseous changes. IMPRESSION: Mild retained stool, correlate for constipation. Dictated By: CONSUELO FRENCH Transcribed By: CONSUELO FRENCH Transcribed On: 05/14/2023 3:53 PM Electronically signed by: CONSUELO FRENCH 05/14/2023 Thank you for referring ISABELA GODINEZ to [facility]. Legally authenticated by POPE CONSUELO Kern DO 2023-05-14 15:53:44 CC'ed Logic: Ordering Provider: KEATON RING CC Provider: BACILIO ROA Attending Provider: KEATON RING Referring Provider: KEATON RING Admitting Provider: KEATON jacobsen, [place] [facility] [place] & [place] 05/16/2023 13:55:43 Problems Name Problem SNOMED Code Status Onset Date Resolution Date Notes Provider Name and Address Organization Details Recorded Time Spinal stenosis of lumbar region 26382945 Active 2021 Shakira Vallecillo null, [place] [facility] [place] 2 14:55:03 Lumbar discogenic pain 849520450 Active 2021 Shakira Vallecillo null, [place] [facility] [place] 2 14:55:22 Lumbar radiculopathy 313290350 Active 2021 Shakira Vallecillo null, [place] [facility] [place] 2 14:55:26 Ligamentous strain 138230621 Active 2021 Shakira jacobsen, [place] [facility] [place] 2 14:55:50 Scoliosis deformity of spine 555529902 Active 2021 Shakira Vallecillo null, [place] [facility] [place] 2 14:56:39 Radicular pain 28744802 Active 2021 Shakira Vallecillo null, [place] [facility] [place] 2 14:56:47 Myofascial pain 672965009 Active 2021 Shakira Vallecillo null, [place] [facility] [place] 2 14:56:55 Spinal stenosis in cervical region 29903773 Active 2021 Shakira Vallecillo null, [place] [facility] [place] 2 14:57:44 Cervical radiculopathy 91026324 Active 2021 Shakira Vallecillo null, [place] 2 14:58:04 Neck pain 18611950 Active 2021 Shakira Vallecillo null, [place] [facility] [place] 2 14:58:15 Brachial (cervical) neuritis 402800322 Active 2021 Shakira Vallecillo null, [place] [place] 2 14:58:21 Chronic idiopathic constipation 65931511 Active 2022 Noemi Ahmadi NP [address], [address], [place], [address], [place] [facility] [place] 3 11:46:46 Gastro-esophag eal reflux disease with esophagitis 620035264 Active 2022 Noemi Ahmadi NP [address], [address], [place], [address], [place] [facility] [place] & [place] 3 14:44:37 Left lower quadrant pain 718963329 Active 2022 Noemi Ahmadi NP [address], [address], [place], [address], [place] [facility] [place] & [place] 14:44:37 Problem Notes None recorded. Procedures Surgical History Date Name Laterality Status Provider Name and Address Organization Details Recorded Time 04/02/20 EGD/Endoscopy completed [facility] [place] [facility] & [place] 05/14/2023 13:48:42 04/02/20 23 Colonoscopy completed [facility] [place] [facility] & [place] 05/14/2023 13:49:07 10/27/19 17 cholecystectomy completed stephanie salgueroaft [place] [facility] & [place] 08/05/2022 12:46:08 10/27/19 tonsillectomy and adenoidectomy completed stephanie hola [place] [facility] & [place] 08/05/2022 12:46:26 extraction of wisdom tooth completed [facility] [place] [facility] & [place] 05/14/2023 13:48:14 Dilation and Curettage completed [facility] [place] [facility] & [place] 05/14/2023 13:48:57 Imaging Results None recorded. Procedure [...] USE FOLLOW UP INSTRUCTI ONS FROM DR VILLEGAS DOSE 4 TABS A DAY 08/05 completed Not [...] Updated DateTime 3 154.94 cm 37.2 kg/m2 16519.7 g 98 [degF] 98 % 98 % 69 /min Chiquita [facility] & [place] 3 10:56:39 Date Recorded Body height Body mass index (BMI) Body weight Body temperature Oxygen saturation Oxygen saturation in Arterial blood by Pulse oximetry Heart rate Provider Name and Address Organization Details Last Updated DateTime 3 154.94 cm 37.2 kg/m2 49296.7 g 97.4 [degF] 99 % 99 % 86 /min [facility] & [place] 3 13:50:07 Date Recorded Body height Body mass index (BMI) Body weight Body temperature Oxygen saturation Oxygen saturation in Arterial blood by Pulse oximetry Heart rate Respiratory rate Systolic And Diastolic Provider Name and Address Organization Details Last Updated DateTime 2 154.94 cm 37.4 kg/m2 40604.0 1 g 96.6 [degF] 99 % 99 % 63 /min 16 /min 121/85 mm[Hg] stephanie simental [facility] & [place] 2 10:22:56 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 None recorded. Functional Status [...] ICD10 Code Diagnosis IMO Codes Diagnosis Note 52909 Oscar Bowman MD [facility] [address] [place] [address] [place] [address] 08/05/2022 10:00:05 08/05/2022 10:46:52 Lumbar radiculopathy 081121381 M54.16 Spinal nishant nosis of lumbar region 29466930 M99.53 Lumbar dis cogenic pain 926046068 M51.26 Ligamentous strain 54210 6003 R29.898 Myofascial pain 06577233 9 M79.10 Spinal nishant nosis in cervical region 07745119 M99.51 Cervical radiculopathy 22564128 M54.12 [id number] CHRISTINE LOOMIS PA-C [facility] [address] [place] [address] 08/26/2022 10:09:15 08/26/2022 16:06:28 Lumbar radiculopathy 758482062 M54.16 Spinal nishant nosis of lumbar region 83193167 M99.53 M48.061 Lumbar dis cogenic pain 934497292 M51.26 Ligamentous strain 94825 6003 R29.898 Myofascial pain 18465680 9 M79.10 Spinal nishant nosis in cervical region 49879935 M99.51 M48.02 Cervical radiculopathy 36558601 M54.12 [id number] Oscar Bowman MD [facility] [address] [place] [address] 12/30/2022 13:34:40 12/30/2022 14:53:00 Lumbar radiculopathy 357178165 M54.16 Spinal nishant nosis of lumbar region 17503675 M99.53 M48.061 Lumbar dis cogenic pain 935322689 M51.26 Ligamentous strain 69262 6003 R29.898 Myofascial pain 92071075 9 M79.10 Spinal nishant nosis in cervical region 40558370 M99.51 M48.02 Cervical radiculopathy 74808093 M54.12 Spinal enthesopathy 1031 7009 M46.03 633124 Noemi Ahmadi NP [facility] [address] [place] [address] 03/19/2023 10:46:42 03/19/2023 12:27:10 Hematochezia 466288554 K92.1 Of her 5 year history of episodes of hematochez ia off and on. Most recent episode 3 weeks ago, large amount which lasted a 5-6 days. Plan for CBC today. Recommend colonoscop y to evaluate for internal hemorrhoid s, polyps, other. Chronic id iopathic constipation 76180858 K59.04 Failed treatment with MiraLax, fiber, OTC laxatives. Recommend trial of Linzess 72 mcg and 145 mcg, samples 8 days each provided to patient clinic today. Will send prescripti on based on response to sample medication . Gastro-eso phageal reflux disease with esophagitis 180843317 K21.00 Three month history increased GERD symptoms. Failed treatment Pepcid. Recommend Protonix 40 mg p.o. daily for treatment. Recommend EGD to evaluate for esophagiti s, hiatal hernia, H pylori, other. Nausea 505947266 R11.0 History of cholecyste ctomy. Plan for EGD to evaluate for H pylori, gastritis, PUD. [id number] Noemi Ahmadi NP [facility] [address] [place] [address] 05/14/2023 13:27:23 05/14/2023 14:48:06 Gastro-esophageal reflux disease with esophagitis 694540213 K21.00 reflux esophagiti s confirmed on pathology 04/03/2023 . Symptoms remain well controlled with use of Pantoprazo le at this time. Recommend continue reflux precaution s. Left lower quadrant pain 817132956 R10.32 Colonoscop y with negative random colon biopsies 04/02/23. Recommend xray abd KUB to r/o stool burden. She has been evaluated by [employer] and taisha cano laproscopi c evaluation for endometrio sis. Chronic id iopathic constipation 73242795 K59.04 Improved with use of Linzess 72 [...] Name 05/15/2024 1 [employer] (POS) Garrett Godinez [id number] Isabela Godinez 05/15/2024 1 [employer] (POS) Garrett Maldonadoatt [id number] Isabela Du Godinez Notes Date Note Type Note Provider [...] MRIs of lumbar/cervical spine Oscar Bowman MD [address] [place] [address], [address], [facility] 08/07/2022 09:42:01 2 text/html ROS as noted in the HPI Mrs. Godinez was referred by Dr. Persaud [...] MRIs of lumbar/cervical spine CHRISTINE LOOMIS PA-C [address] [facility], [place], [address], [facility] & [place] 08/26/2022 15:23:38 3 text/html ROS as noted in the HPI Mrs. Godinez was referred by Dr. Persaud [...] of lumbar/cervical spine Oscar Bowman MD [address], [place], [address], [facility] 12/31/2022 13:22:17 3 text/html ROS as noted in the HPI A 27-year-old female past medical history cholecystectomy, [...] primarily soda and coffee. Noemi Ahmadi NP [address] [facility], [address], [place], [address], [facility] 03/19/2023 11:47:36 3 text/html ROS as noted in the HPI Patient returns clinic today for follow-up post [...] abdominal pain. She has been evaluated by [employer], they are considering laproscopic evaluation for endometriosis. Noemi Ahmadi NP [address] [place] [address], [address], [place], [address], [facility] - [place] - [place] & [place] 05/14/2023 14:45:24 OBGyn Episode No OBEpisode recorded.
--- OUTSIDE RECORDS SUMMARY | 2025-07-29 00:23 | XMS_ITS | Patient Health Record ---
Author Organization [facility] Address [address] [place] [id number] Care Team Providers [employer] Name Role Phone Johnathan Duenas Primary Care Provider Adama Ballard Unavailable [phone] Radha Awad Unavailable [phone] Allergies No Known Allergies Results Component Value [...] Interpretation:Normal Performing Lab: Notes/Report: Test performed by [facility] [address] [place] [address] , [address], [place] [address] Nick Brady MD, Java Android Developer CLIA: [id number] Sodium 141 135-145 mmol/L Potassium 4.2 3.5-5.3 [...] 0.71 Performing Lab: Notes/Report: Test performed by [facility] [address] [place] [address] , [place] [address] Nick Brady MD, Java Android Developer CLIA: [id number] Erythrocyte Sedimentation Rate (ESR), Automated 11 <26 mm/hr Rheumatoid Factor 12.0 <14.1 IU/mL C-Reactive Protein (CRP) 0.71 <0.50 mg/dL Antinuclear Antibodies (LATRICIA) Screen, Reflex LATRICIA 9 Panel Negative Negative This test is performed by Multiplex Bead Immunoassay methodology. Antinuclear Antibodies (LATRICIA) Result Note SEE COMMENT For positive Autoantibodies, please refer to the interpretive chart here: [email or web address] CCP Antibodies <0.5 <0.5-3.0 U/mL P-T4 Free (thyroxine) Reviewed date:01/05/2025 01:01:14 PM Interpretation:Normal Performing Lab: Notes/Report: Test performed by [facility] [address] [place] [address] , [place] [address] Nick Brady MD, Java Android Developer CLIA: [id number] Thyroxine Free (free T4) 1.50 0.86-1.76 ng/dL P-Thyroid Antibody Panel (TA BS) Reviewed date:01/05/2025 01:01:14 PM Interpretation:Normal Performing Lab: Notes/Report: Test performed by [facility] [address] [place] [address] [place] [address] Nick Brady MD, Java Android Developer CLIA: [id number] Thyroid Peroxidase Antibody 17 <9-34 IU/mL An [...] Interpretation:0.17 Performing Lab: Notes/Report: Test performed by [facility] [address] , [place] [address] Nick Brady MD, Java Android Developer CLIA: [id number] TSH 0.17 0.43-5.25 mU/L ultrasound : thyroid Reviewed date:01/05/2025 01:01:13 PM Interpretation:homogenous thyroid Performing Lab: Notes/Report: homogenous thyroid P-T4 Free (thyroxine) Reviewed date:01/27/2025 02:33:57 PM Interpretation:2.1 Performing Lab: Notes/Report: Test performed by [facility] [address] , [place] [address] Nick Brady MD, Java Android Developer CLIA: [id number] Thyroxine Free (free T4) 2.10 0.86-1.76 ng/dL P-Total T3 Reviewed date:01/27/2025 02:33:57 PM Interpretation:Normal Performing Lab: Notes/Report: Test performed by [facility] [address] [place] [address] Nick Brady MD, Java Android Developer CLIA: [id number] Total T3 1.98 0.80-2.00 ng/mL P-TSH Reviewed date:01/27/2025 02:33:57 PM Interpretation:0.01 Performing Lab: Notes/Report: Test performed by [facility] [address] [place] [address] Nick Brady MD, Java Android Developer CLIA: [id number] TSH 0.01 0.43-5.25 mU/L Rapid Strep- Inhouse [...] - 38 plat 177 100 - 400 CBC Fingerstick (in house) Reviewed date:06/02/2025 12:07:20 [...] - 38 plat 186 100 - 400 CBC Fingerstick (in house) Reviewed date:05/11/2025 05:37:30 [...] Interpretation: Performing Lab: Notes/Report: strep test Neg P-Antistreptolysin O AB Reviewed date:05/13/2025 09:49:59 AM Interpretation:Normal Performing Lab: Notes/Report: Test performed by [facility] [address] [place] [address] , [address], [place] [address] Nick Brady MD, Java Android Developer CLIA: [id number] Antistreptolysin O AB 175.0 <20-200.0 IU/mL P-Comprehensive Metabolic Pa helio (CMP) Reviewed date:05/13/2025 09:49:59 AM Interpretation:bili 1.4 Performing Lab: Notes/Report: Test performed by [facility] [address] [place] [address] [place] [address] Nick Brady MD, Java Android Developer CLIA: [id number] Sodium 137 135-145 mmol/L Potassium 4.1 3.5-5.3 [...] Interpretation:Reactive Performing Lab: Notes/Report: Test performed by [facility] [address] [place] [address] [place] [address] Nick Brady MD, Java Android Developer CLIA: [id number] Cytomegalovirus (CMV) Antibody, IgG Reactive Non-Reactive This [...] >8 Performing Lab: Notes/Report: Test performed by [facility] , [place] [address] Nick Brady MD, Java Android Developer CLIA: [id number] Deidre Dewey Virus (EBV) VCA Antibodies IgG >8.0 <0.9 AI Deidre Dewey Virus (EBV) VCA Antibodies IgM 0.3 <0.9 AI P-Sed Rate (ESR) Reviewed date:05/13/2025 09:50:00 AM Interpretation:Normal Performing Lab: Notes/Report: [facility] , [place] [address] Nick Brady MD, Java Android Developer CLIA: [id number] Erythrocyte Sedimentation Rate (ESR), Automated 18 <26 mm/hr P-Lipase Reviewed date:05/13/2025 09:50:00 AM Interpretation:Normal Performing Lab: Notes/Report: Test performed by [facility] , [place] [address] Nick Brady MD, Java Android Developer CLIA: [id number] Lipase 19.8 13.0-60.0 U/L P-Amylase Reviewed date:05/13/2025 09:49:59 AM Interpretation:Normal Performing Lab: Notes/Report: [facility] [place] [facility] [place] [address] Nick Brady MD, Java Android Developer CLIA: [id number] Amylase 42 28-100 U/L CBC Fingerstick (in house) Reviewed date:09/01/2024 04:21:31 [...] - 38 plat 156 100 - 400 Reason For Referral Diagnosis 1 Rash (R21) [facility] Referring Provider First Name Johnathan Referring Provider Last Name Yulissa [facility] Herber Ojeda Referred Provider Specialty Dermatology General Notes Zuleyka Lin 2024 10:44:17 AM > faxed to Dr. Ojeda at [facility] Referral Priority Routine Diagnosis 1 Generalized abdomina l pain (R10.84) Diagnosis 2 Abdominal bloating ( R14.0) Diagnosis 3 Chronic nausea (R11. 0) [facility] Referring Provider First Name Johnathan Referring Provider Last Name Yulissa Referring Provider [facility] ctice Referred Organization [facility] OP Referred Provider JOSHUA BERNARDO Referred Address [address] [facility] [address] [place],[id number], Referred Provider Specialty Gastroentero logy General Notes Zuleyka Lin 2024 09:03:00 AM > faxed to [facility] Referral Priority Routine Medications Medication SIG (Take, [...] day Active Ketoconazole 2 % 1 application Scuba Diving Teacher ally Once a day 05/20/2025 Active Diflucan [...] W/U Status Risk Notes Problem Essential hypertension (44427439) Essential hypertension (I10) Active confirmed Problem Hyperthyroidism (35400058) Hyperthyroidism (E05.90) Active confirmed Problem Mixed anxiety and depressive disorder (348198386) Depression with anxiety (F41.8) Active confirmed Problem Chronic pain (29776760) Other chronic pain (G89.29) Active confirmed Problem Thrombocytopenia (378828496) Thrombocytopenia (D69.6) Active confirmed Problem Chronic rhinitis (78506519) Rhinitis, unspecified type (J31.0) Active confirmed Problem Thyromegaly (9609135) Thyromegaly (E01.0) Active confirmed Problem Obesity (554463044) Non morbid o besity (E66.9) Active confirmed Problem Primary hypertension (44723537) Primary hypertension (I10) Active confirmed Vital Signs Heart Rate 80 /min 05/11/2025 Blood pressure diastolic 70 mm Hg 05/11/2025 Height 61.5 in 05/11/2025 Blood pressure systolic 110 mm Hg 05/11/2025 Weight 221 lbs 05/11/2025 BMI 41.08 kg/m2 05/11/2025 Encounters Encounter Location Date Provider Diagnosis [facility] [address] [place], [place] [id number] 09/01/2024 Johnathan Woodbridge Acute URI J06.9 and Tinea corporis B35.4 [facility] [address] [place], [place] [id number] 11/10/2024 Johnathan Woodbridge Essential hypertensi on I10 [facility] [address] [place], [place] [id number] 11/15/2024 Johnathan Woodbridge Herpes zoster withou t complication B02.9 [facility] [address] [place], [place] [id number] 12/29/2024 Radha Crowdy Myalgia M79.10 ; Arthralgia, unspecified joint M25.50 ; Heart palpitations R00.2 ; Hair loss L65.9 ; Other fatigue R53.83 ; Elevated liver enzymes R74.8 ; Thyromegaly E01.0 and Rash R21 [facility] [address] [place], [place] [id number] 01/26/2025 Johnathan Woodbridge Low TSH level R79.89 and Rash R21 [facility] [address] [place] [id number] 02/10/2025 Radha Crowdy Acute otitis media, right H66.91 ; Acute URI J06.9 and Body aches R52 [facility] [address] [place] [id number] 02/18/2025 Johnathan Woodbridge Acute diarrhea R19.7 and Hyperthyroidism E05.90 [facility] [address] [place], [place] [id number] 05/11/2025 Johnathan Woodbridge Fever, unspecified R 50.9 ; Sorethroat J02.9 ; Epigastric abdominal pain R10.13 ; Heartburn R12 ; Thrombocytopenia D69.6 ; Family history of breast cancer in female Z80.3 and Skin rash R21 [facility] [address] [place], [place] [id number] 05/31/2025 Johnathan Woodbridge Thrombocytopenia D69 .6 [facility] [address] [place] [id number] 01/03/2025 Radha Crowdy [facility] [address] [place] [id number] 01/27/2025 Johnathan Woodbridge [facility] [address] [place] [id number] 02/07/2025 Johnathan Woodbridge [facility] [address] [place] [id number] 02/15/2025 Johnathan Woodbridge [facility] [address] [place] [id number] 02/16/2025 Johnathan Woodbridge [facility] [address] [place] [id number] 02/28/2025 Johnathan Woodbridge [facility] [address] [place] [id number] 05/13/2025 Johnathan Woodbridge [facility] [address] [place] [id number] 05/20/2025 Johnathan Woodbridge Skin rash R21 [facility] [address] [place] [id number] 05/20/2025 Johnathan Woodbridge [facility] [address] [place] [id number] 05/26/2025 R Randall Nellie [facility] [address] [place] [id number] 06/13/2025 Johnathan Woodbridge Rash R21 [facility] [address] [place] [id number] 06/30/2025 Johnathan Woodbridge Generalized abdomina l pain R10.84 ; Abdominal bloating R14.0 and Chronic nausea R11.0 [facility] [address] [facility] [address] [place] [id number] 01/28/2025 Johnathan Woodbridge [facility] [address] [facility] [address] [place] [id number] 04/30/2025 Johnathan Woodbridge Assessments Encounter Date Diagnosis (ICD Code) Assessment [...] [employer] [address] [place] [address] [id number] ISABELA GODINEZ Self - patient is the insured Medical (General) History Surgical History Surgery Date(Month/Year) Tonsillectomy 2000 Bilateral Ankles 2019 Cholecystectomy 2017 [place] Teeth 2014 D & C 2019 Tubal Ligation 2024 Hospitalization History Reason Date(Month/Year)
[2025-07-29 00:30] VITALS: BP 120/87; PULSE 69; O2SAT 99
[2025-07-29] MEDS: KETOROLAC 30MG/ML VIAL 30 MG IV (00:45)
[2025-07-29] MEDS: ACETAMINOPHEN 500MG TAB 1000 MG PO (00:45)
[2025-07-29] MEDS: BELLADONNA ALKALOIDS 60 ML ML PO (00:45)
[2025-07-29] MEDS: METHOCARBAMOL 500MG TABLET 1000 MG PO (00:46)
[2025-07-29] MEDS: ONDANSETRON 4MG ODT 4 MG SL (00:46)
[2025-07-29] MEDS: LIDOCAINE 5% TRANSDERMAL PATCH 1 EACH TD (00:46)
[2025-07-29 01:00] VITALS: BP 104/74; PULSE 61; O2SAT 98
[2025-07-29 01:25] LABS: Hematocrit 35.9 % (37.0-47.0); Hemoglobin 12.1 g/dL (12.2-16.2); Immature Granulocytes % 0.2 %; Mean Corpuscular HGB Conc 33.7 g/dL (31.8-35.4); Mean Corpuscular Hemoglobin 29.7 pg (27.0-31.2); Mean Corpuscular Volume 88.0 fl (81-99); Nucleated Red Blood Cells % 0 %; Platelet Count 180 K/mm3 (142-424); Red Blood Count 4.08 M/mm3 (4.20-5.40); Red Cell Distribution Width-SD 44.1 fL; White Blood Count 6.0 K/mm3 (4.8-10.8)
[2025-07-29 01:34] LABS: Alanine Aminotransferase 19 U/L (12-78); Albumin Level 3.9 g/dl (3.5-5.0); Albumin/Globulin Ratio 1.3 (1.1-1.8); Alkaline Phosphatase 64 U/L (38-126); Anion Gap 8.5 mEq/L (5-15); Aspartate Amino Transferase 21 U/L (14-36); Bilirubin,Total 0.7 mg/dl (0.2-1.3); Blood Urea Nitrogen 11 mg/dl (7-17); Calcium 9.1 mg/dl (8.4-10.2); Carbon Dioxide 29 mmol/L (22.0-30.0); Chloride 103 mmol/L (98-107); Creatinine Clearance Estimated 188 mL/min (50-200); Creatinine,Serum 0.70 mg/dl (0.52-1.04); Estimated Glomerular Filt Rate 100 ml/min (>60); GFR (African American) 121 ML/MIN (>60); Globulin 3.0 g/dL (1.3-3.2); Glucose 102 mg/dl (74-100); Lipase 62 U/L (23-300); Magnesium 1.9 mg/dl (1.6-2.3); Potassium 3.5 mmoL/L (3.5-5.1); Sodium 137 mmol/L (136-145); Total Protein,Serum 6.9 g/dl (6.3-8.2)
[2025-07-29 02:12] VITALS: BP 98/70; PULSE 66; RESP 20; TEMP 36.7; O2SAT 98
== END 2025-07-29 02:18 | disposition home or self-care (01) ==
PROVIDERS: Emergency Provider Emergency Medicine; PCP Family Medicine
DX: R10.12 Left upper quadrant pain (principal); R11.0 Nausea
CPT/HCPCS: 80053; 83690; 83735; 85025; 96374; 99284; J1885; Q0162

== ENCOUNTER 2025-08-04 15:25 | Outpatient (CLI) | payer BC, SELFPAY ==
--- NOTE | 2025-08-04 15:30 | CT_ITS ---
FINAL REPORT TECHNIQUE: Axial images of the left foot was performed by computed tomography. Sagittal and coronal reformatted images were obtained and reviewed. This study was performed with techniques to keep radiation doses as low as reasonably achievable, (ALARA). Individualized dose reduction techniques using automated exposure control or adjustment of mA and/or kV according to the patient's size were employed. CLINICAL HISTORY: Evaluation of Left Foot Degenerative changes, hx of foot repair FINDINGS: There are surgical screws traversing the talocalcaneal articulation. There is bone fusion of the talocalcaneal joint. The medialmost screw extends outside the calcaneal cortex by 10 mm. No acute fracture is identified. There is degenerative joint disease at the talonavicular and calcaneocuboid joint. Calcifications adjacent to the medial and lateral malleoli are likely chronic. The Lisfranc articulation is preserved. IMPRESSION: Postoperative changes of the tail of calcaneal fusion. Hardware intact. Degenerative disease of the hindfoot. Reviewed, Interpreted and Dictated by Galina Boykin MD Transcribed by Janeen Mcclendon Authenticated and [facility]
== END 2025-08-04 23:59 | disposition home or self-care (01) ==
LOC: RAD 15:26
PROVIDERS: PCP Family Medicine; Visit Provider Podiatrist
DX: M19.072 Primary osteoarthritis, left ankle and foot (principal); M79.89 Other specified soft tissue disorders; S86.312A Strain of muscle(s) and tendon(s) of peroneal muscle group at lower leg level, left leg, initial encounter; M76.62 Achilles tendinitis, left leg; M20.5X1 Other deformities of toe(s) (acquired), right foot; M20.5X2 Other deformities of toe(s) (acquired), left foot; Z98.1 Arthrodesis status; Z96.9 Presence of functional implant, unspecified; Z98.890 Other specified postprocedural states
CPT/HCPCS: 73700

== ENCOUNTER 2025-08-10 06:59 | Day surgery (SDC) | payer BC, SELFPAY ==
[2025-08-03 08:54] VITALS: BMI 41.1
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
--- NOTE | 2025-08-10 07:00 | P.PCN_ITS ---
[facility] Procedure Note Date: 08/10/25 Time: 08:45 Procedure Note:: Upper Endoscopy Procedure Report: Esophagogastroduodenoscopy with cold biopsies, APC ablation and TTS balloon dilation Endoscopost: Kel Chacon II, MD Referring Physician: Johnathan Duenas MD Date of Procedure: August 10, 2025 Equipment: Olympus GIF-1100 standard upper endoscope Sedation: MAC sedation Indications: Mrs. Cisneros is a 29-year-old female who is here for diagnostic EGD. The patient reports epigastric abdominal pain, bloating, nausea and dysphagia. This has been going on for 2 to 3 years. The patient feels as if something is hung in the upper retrosternal region and she does get choked and has interm ittent dysphagia to both solids and liquids. She reports some belching, epigastric pain and early satiety. She does have a history of chronic GERD and takes omeprazole 40 mg daily. She is getting some breakthrough heartburn and reflux every 2 to 3 days. She does have a long history of IBS with constipation. She did have a colonoscopy with Dr. Abraham Galvez in 2022. She does report some globus sensation. She did have an EGD with Dr. Srinath Monk M.D in 2017. The examination is deemed medically necessary for diagnostic EGD. Procedure: Prior to the procedure, a history and physical exam was performed, and patient's medications and allergies were reviewed. The risks, benefits and alternatives of the sedation and procedure were discussed with the patient. All questions were answered and informed consent was obtained. The patient was brought to the procedure room. Patient identification and proposed procedure were verified by the physician and the nurse. The patient was placed in a left lateral decubitus position and the scope was passed under direct vision. Throughout the procedure, the patient's blood pressure, pulse, and oxygen saturations were monitored continuously. The upper GI endoscopy was accomplished without difficulty. The patient tolerated the procedure well. Findings: The scope was passed directly into the upper esophagus and advanced to the third portion of the duodenum. The post bulbar duodenum and duodenal bulb were normal with normal mucosa and conniventes. 2 cold biopsies were taken from the second portion of the duodenum for the disaccharidase assay. The scope was withdrawn through a normal duodenal bulb and pylorus into the stomach. There was some bile reflux with mild linear reactive gastropathy of the antrum. The body and fundus of the stomach were normal. Cold biopsies were taken from the antrum. Upon retroflexion there was a very small sliding 1 to 2 cm hiatal hernia. The scope was then withdrawn into the esophagus. There was no evidence of reflux esophagitis or Jamil's. There were no rings, strictures, corrugation or furrowing. There was a proximal esophageal inlet patch (10 to 11 mm). This was ablated using APC ablation. Next, the entire esophagus was dilated to 60 Bengali/20 mm with a TTS hydrostatic balloon. There was mild resistance at the cricopharyngeus. There were tertiary contractions and evidence of mild esophageal dysmotility. The remainder of the esophageal mucosa was normal. Impression: 1. Proximal esophageal inlet patch?status post APC ablation 2. Nonerosive GERD with mild esophageal dysmotility and very small sliding 1 to 2 cm hiatal hernia 3. Bile reflux with mild linear reactive gastropathy of antrum Plan: I will follow-up the biopsies and disaccharidase assay. Most of her sy mptoms of dyspepsia and GERD are related to and driven by lower intestinal gas pressure gradients/high gas pressure buildup resulting in backflow of bile and peptic fluid from the duodenum into the stomach (duodenal reflux). This gas production (carbon dioxide, hydrogen, methane, etc.) from the lower intestinal tract is the byproduct of colonic bacterial fermentation. This colonic fermentation occurs when there is more carbohydrate (dietary starches, sugars and high residue plant fiber) substrate that does not get digested (in the middle or small intestine) or occurs when there is colonic fecal buildup and colonic bacterial overgrowth. This indeed leads to bloating and the gas pressure buildup with gas pressure gradients that do drive backflow and dyspepsia.
[2025-08-10 07:49] VITALS: BP 109/72; PULSE 78; RESP 18; TEMP 36.2; O2SAT 97
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
[2025-08-10 08:48] VITALS: BP 113/67; PULSE 89; RESP 18; TEMP 36.3; O2SAT 99
[2025-08-10 08:58] VITALS: BP 117/70; PULSE 84; RESP 18; TEMP 36.3; O2SAT 96
[2025-08-10 09:08] VITALS: BP 114/69; PULSE 81; RESP 16; TEMP 36.3; O2SAT 99
[2025-08-10 09:18] VITALS: BP 110/70; PULSE 78; RESP 16; TEMP 36.3; O2SAT 99
[2025-08-15 16:15] LABS: Interpretation Notes (.); Lactase 32.95 (>/= 14.0); Maltase 156.06 (>/= 110.0); Palatinase 15.21 (>/= 8.5); Reference Notes (.); Sucrase 44.89 (>/= 25.0)
== END 2025-08-10 09:18 | disposition home or self-care (01) ==
PROVIDERS: PCP Family Medicine; Visit Provider Internal Medicine Gastroenterology
PROC: 0DJ08ZZ Inspection of Upper Intestinal Tract, Via Natural or Artificial Opening Endoscopic (ICD-10-PCS; CPT 43239; principal; 2025-08-10 08:30)
DX: K22.4 Dyskinesia of esophagus (principal); K44.9 Diaphragmatic hernia without obstruction or gangrene; K21.9 Gastro-esophageal reflux disease without esophagitis; K31.89 Other diseases of stomach and duodenum; K58.1 Irritable bowel syndrome with constipation; G43.909 Migraine, unspecified, not intractable, without status migrainosus
CPT/HCPCS: 43239; 43249; 82657; C1726; C2618; J2003; J2704

== ENCOUNTER 2025-08-10 21:09 | Emergency (ER) | payer BC, SELFPAY ==
--- OUTSIDE RECORDS SUMMARY | 2025-03-18 10:30 | XMS_ITS ---
Author Organization [facility] Address [address] [place] [phone] Care Team Providers Care Veneer Cutter Name Role Phone Johnathan Duenas Primary Care Provider [phone] REASON FOR VISIT fu blood work for thyroid Encounters Encounter Location Date Provider Diagnosis [facility] [address] [place] [phone] 03/18/2025 Johnathan Duenas Plan Of Treatment No Information Progress Notes * MOHAN GODINEZHIRALOB:1995 (29 yo F)Acc No.[id number]:03/18/2025 Patient: ISABELA HELMS Provider: Ramesh Duenas M.D. :1995 A ge:29 Y S ex:Female Date:03/18/2025 Address:[address] [place], [place] Subjective: * Chief Complaints: * 1 . Fu blood work for thyroid. * 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: Objective: * Vitals: Assessment: Plan: * Treatment: * Images: Billing Information: * Visit Code: * Procedure Codes: * Electronic signature of Sharda Duenas MD on 08/10/2025 at 09:37 PM EDT Sign off status: Pending * Provider: Ramesh Duenas M.D. Date: 0 03/18/2025 Generated for Reggie stone/Leslie/eTransmitting on: 1 09:37 PM EDT
--- OUTSIDE RECORDS SUMMARY | 2025-05-11 11:00 | XMS_ITS ---
[facility] Organization [facility] Address [address] [facility] [address] [place] [id number] Care Team Providers Care Superintendent Greens Name Role Phone Johnathan Duenas Primary Care [...] Interpretation:Normal Performing Lab: Notes/Report: Test performed by [facility] [address] [place], [place] [address] [place] , [address], [place] [address] Nick Brady MD, Assembler Corncob Pipes CLIA: [id number] Amylase 42 28-100 U/L P-Antistreptolysin O AB Reviewed date:05/13/2025 09:49:59 AM Interpretation:Normal Performing Lab: Notes/Report: Test performed by [facility] [address] [place], [place] [address] [place] , [address], [place] [address] Nick Brady MD, Assembler Corncob Pipes CLIA: [id number] Antistreptolysin O AB 175.0 <20-200.0 IU/mL P-Comprehensive Metabolic Pa helio (CMP) Reviewed date:05/13/2025 09:49:59 AM Interpretation:bili 1.4 Performing Lab: Notes/Report: Test performed by [facility] [address] [place] [address] , [place] [address] Nick Brady MD, Assembler Corncob Pipes CLIA: [id number] Sodium 137 135-145 mmol/L Potassium 4.1 3.5-5.3 [...] Interpretation:Reactive Performing Lab: Notes/Report: Test performed by [facility] [address] [place] [address] [place] [address] Nick Brady MD, Assembler Corncob Pipes CLIA: [id number] Cytomegalovirus (CMV) Antibody, IgG Reactive Non-Reactive This [...] >8 Performing Lab: Notes/Report: Test performed by [facility] [address] [place] [address] , [address], [place] [address] Nick Brady MD, Assembler Corncob Pipes CLIA: [id number] Deidre Dewey Virus (EBV) VCA Antibodies IgG >8.0 <0.9 AI Deidre Dewey Virus (EBV) VCA Antibodies IgM 0.3 <0.9 AI P-Sed Rate (ESR) Reviewed date:05/13/2025 09:50:00 AM Interpretation:Normal Performing Lab: Notes/Report: Test performed by [facility] [address] , [address], [place] [address] Nick Brady MD, Assembler Corncob Pipes CLIA: [id number] Erythrocyte Sedimentation Ra te (ESR), Automated 18 <26 mm/hr P-Lipase Reviewed date:05/13/2025 09:50:00 AM Interpretation:Normal Performing Lab: Notes/Report: Test performed by [facility] [address] [place] [address] , [address], [place] [address] Nick Brady MD, Assembler Corncob Pipes CLIA: [id number] Lipase 19.8 13.0-60.0 U/L REASON FOR VISIT 6 months Medications Medication SIG (Take, Route, Fr equency, Duration) Notes Start Date End Date Status Multi Vitamin - 1 tablet Orally Once a day; Duration: 30 day(s) Active Nystatin 010997 UNIT/GM 1 application Ex ternally Twice a [...] Status W/U Status Risk Notes Problem Thrombocytopenia (361813264) Thrombocytopenia (D69.6) Active confirmed Vital Signs Blood pressure systolic 110 mm Hg 05/11/20 25 Blood pressure diastolic 70 mm Hg 025 Heart Rate 80 /min 05/11/2025 Height 61.5 in 05/11/2025 Weight 221 lbs 05/11/2025 BMI 41.08 kg/m2 05/11/2025 Encounters Encounter Location Date Provider Diagnosis [facility] [address] [place], [place] [phone] 05/11/2025 Johnathan Duenas Fever, unspecified R 50.9 [...] Sig Start Date Stop Date Notes Nystatin 665558 UNIT/GM 1 application Ex ternally Twice a day 05/11/2025 Omeprazole 40 MG 1 capsule 1/2 to 1 h our before morning meal Orally Once a day; Duration: 30 days 05/11/2025 Next Appt Details Follow Up: via phone to repo rt progress, Reason: Progress Notes * JOYCELYN GODINEZOB:1995 (29 yo F)Acc No.[id number]:05/11/2025 Progress Notes Patient: MOHAN HELMSNE Provider: Ramesh Duenas M.D. :1995 A ge:29 Y S ex:Female Date:05/11/2025 Address:[place], [id number] Subjective: * Chief Complaints: * 1 . [...] pain. Pt states she did go to [facility] 04/05 and tested negative for strep throat. [...] onsillectomy 1999, Bilateral Ankles 2018, Cholecystectomy 2016, [place] Teeth 2013, D & C 2019, Tubal [...] phone encounter 6.?Skin rash? Start Nystatin Cream, 607176 UNIT/GM, 1 application, Externally, Twice a day, 30 grams, Refills 1. ? * Procedure Codes: 8 5025 CBC WITH AUTO DIFF, 33483 STREP A ASSAY W/OPTIC, Modifiers: QW , 1036F TOBACCO NON-USER, 3074F SYST BP LT 130 MM HG, 3078F DIAST BP < 80 MM HG * Follow Up: v ia phone to report progress * Images: Billing Information: * Visit Code: 52427 Office Visit, Est Pt., Level 4. * Procedure Codes: 02709 CBC WITH AUTO DIFF. 19958 STREP A ASSAY W/OPTIC. Modifiers: QW 1036F TOBACCO NON-USER. 3074F SYST BP LT 130 MM HG. 3078F DIAST BP < 80 MM HG. * Electronic signature of Sharda Duenas MD on 08/10/2025 at 09:37 PM EDT Sign off status: Pending * Provider: Ramesh Duenas M.D. Date: 0 05/11/2025 Generated for Printi ng/Faxing/eTransmitting on: 1 09:37 PM EDT History and Physical Notes * HPI (History of Present Illness) Category Sub-Category Detail Notes Category Not es ENT/respiratory sore throat Pt complains of sore throat for over a month. Associated with fever, nausea and stomach pain. Pt states she did go to [facility] 04/05 and tested negative for strep throat. [...]
--- OUTSIDE RECORDS SUMMARY | 2025-05-31 11:45 | XMS_ITS ---
Author Organization [facility] Address [address] [facility] [address] [place] [phone] Care Team Providers Care Biodiesel Process Control Technician Name Role Phone Johnathan Duenas Primary Care Provider [phone] Results Component Value Reference Range Notes CBC [...] Provider Diagnosis [place] [address] [facility] [address] [place] [phone] 05/31/2025 Johnathan Duenas Thrombocytopenia D69 .6 Assessments Encounter Date Diagnosis (ICD Code) Assessment Notes Treatment Notes Treatment Clinical Notes Section Notes 05/31/2025 Thrombocytopenia (ICD-10 - D69.6) Plan Of Treatment No Information Progress Notes * GRETCHENMOHAN SOTOMAYORHIRALOB:1995 (29 yo F)Acc No.[id number]:05/31/2025 Patient: ISABELA HELMS Provider: Ramesh Duenas M.D. :1995 A ge:29 Y S ex:Female Date:05/31/2025 Address:[address] [id number] Subjective: * Chief Complaints: * 1 . [...] Procedure Codes: 3 6416 CAPILLARY BLOOD DRAW, 29265 CBC WITH AUTO DIFF * Images: Billing Information: * Visit Code: * Procedure Codes: 51719 CAPILLARY BLOOD DRAW. 16388 CBC WITH AUTO DIFF. * Electronic signature of Sharda Duenas MD on 08/10/2025 at 09:37 PM EDT Sign off status: Pending * Provider: Ramesh Duenas M.D. Date: 0 05/31/2025 Generated for Reggie stone/Leslie/Bill on: 1 09:37 PM EDT
--- OUTSIDE RECORDS SUMMARY | 2025-06-13 05:08 | XMS_ITS ---
Author Organization Laura Address [address] [facility] 36 [facility] [address] [place] [phone] Care Team Providers Care Yarder Boss Name Role Phone Johnathan Duenas Primary Care Provider Reason For Referral Diagnosis 1 Rash (R21) Referral Organization KAREN[facility]aura Referring Provider First Name Johnathan Referring Provider Last Name Yulissa Referring Provider Speciality Family Pra ctice Referred Provider Herber Ojeda Referred Provider Specialty Dermatology General Notes Zuleyka Lin 2024 10:44:17 AM > faxed to Dr. Ojeda at [facility] Referral Priority Routine REASON FOR VISIT Message Encounters Encounter Location Date Provider Diagnosis [place] [address] [place] [phone] 06/13/2025 Johnathan Duenas Rash R21 Assessments Encounter Date Diagnosis (ICD Code) Assessment Notes Treatment Notes Treatment Clinical Notes Section Notes 06/13/2025 Rash (ICD-10 - R21) Plan Of Treatment Referrals Referral Date Details 06/13/2025 06/13/2025Herber Progress Notes * JOYCELYN GODINEZOB:1995 (29 yo F)Acc No.[id number]:06/13/2025 Patient: ISABELA HELMS :1995 A ge:29 Y S ex:Female Address:[place] [address] Subjective: * Chief Complaints: * M essage * 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: * Surgical History: * Hospitalization/Major Diagno stic Procedure: * Medications: Objective: * Vitals: * Physical Examination: Assessment: * Assessment: 1. R bri - R21 (Primary) Plan: * Treatment: * Procedure Codes: * true * Date: Generated for Reggie stone/Leslie/Bill on: 1 09:38 PM EDT Consultation Request Notes Referral Date Referring Provider Referred Provider Not es 06/13/2025 Johnathan Duenas [place]
--- OUTSIDE RECORDS SUMMARY | 2025-06-30 10:51 | XMS_ITS ---
Author Organization Laura Address [facility] 36 [facility] [address] [place] [id number] Care Team Providers Care Manager Critical Care Unit Name Role Phone Johnathan Duenas Primary Care Provider Reason For Referral Diagnosis 1 Generalized abdomina l pain (R10.84) Diagnosis 2 Abdominal bloating ( R14.0) Diagnosis 3 Chronic nausea (R11. 0) [facility] Referring Provider First Name Johnathan Referring Provider Last Name Yulissa Referring Provider Speciality Family Pra ctice Referred Organization [facility] OP Referred Provider JOSHUA BERNARDO Referred Address [address] [place], [place] [phone], Referred Provider Specialty Gastroentero logy General Notes Zuleyka Lin 2024 09:03:00 AM > faxed to [facility] Referral Priority Routine REASON FOR VISIT Needs referral Encounters Encounter Location Date Provider Diagnosis [place] [address] [facility] 36 [facility] [address] [place] [id number] 06/30/2025 Johnathan Duenas Generalized abdomina l pain R10.84 ; Abdominal bloating R14.0 and Chronic nausea R11.0 Assessments Encounter Date Diagnosis (ICD Code) Assessment Notes Treatment Notes Treatment Clinical Notes Section Notes 06/30/2025 Generalized abdominal pain (ICD-10 - R10.84) 06/30/2025 Abdominal bloating (ICD-10 - R14.0) 06/30/2025 Chronic nausea (ICD-10 - R11.0) Plan Of Treatment Referrals Referral Date Details 07/13/2025 07/13/2025, JOSHUA MAK, [address] [facility] 36 [facility], [facility] [place], [phone], Progress Notes * MOHAN GODINEZHIRALOB:1995 (29 yo F)Acc No.[id number]:06/30/2025 Patient: ISABELA HELMS :1995 A ge:29 Y S ex:Female Address:[place] [address] Subjective: * Chief Complaints: * N eeds [...] * Date: Generated for Reggie stone/Leslie/eTransmitting on: 1 09:37 PM EDT Consultation Request Notes Referral Date Referring Provider Referred Provider Not es 07/13/2025 Johnathan Duenas EARL
[2025-08-10 21:21] VITALS: BP 132/64; PULSE 72; RESP 18; TEMP 36.9; O2SAT 99; BMI 41.1
--- OUTSIDE RECORDS SUMMARY | 2025-08-10 21:36 | XMS_ITS | Clinical Summary ---
Author Organization [facility] Address [address] [place] [address] Care Team Providers Care Plant Tech Name Role Phone Provider, No Known Primary [...] such, I have scheduled Ms Cisneros with [facility] for possible PUBS/IUT procedure tomorrow. She will be at their ultrasound unit tomorrow at 0800. D/w Dr Marry Vogt. Records faxed. Follow up with [facility] [...] Maternal Grandmother Alida Mother Steffi Paternal Grandfather Magdile Sister 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 Tobacco Use Types Packs/Day [...] Date Recorded Retired Total Score 14 07/16/2021 [facility] - Occupational Stress [...] things needed for daily living? No 11/13/2020 [place] Depression Scale Answer Date Recorded [place] Depression Scale Total 5 06/05/2021 The thought [...] Gynecologic Pelvic and Breast Exam 04/08/2024 04/07/2023 INFLUENZA VACCINE 05/27/2025 TDAP/TD VACCINES (2 - Td or Tdap) [...] Reference Lab Report [facility] [address] [place] [address] or [phone] Wong Wall M.D., Clinical Trial Leader PATIENT NAME [facility] [id number] AGE SEX SSN CLIENT REF # [id number] 25 1995 F [id number] REQUESTING Edis [place] [address] ALCIRA ORTIZ DATE COLLECTED DATE RECEIVED DATE [...] of chlamdial and gonococcal disease using the Thorp system. BASKETBALL REFEREE: LEXI SAUCEDA (ASCP) CPT CODES: 39518, [id number], [id number] 04/08/2023 2:46 PM EDT [facility] ThinPrep Vial Cervix uteri structure / Unknown Collection / Unknown 04/07/2023 8:19 AM EDT 04/07/2023 8:19 AM EDT Alcira Ortiz MD PATHOLOGY/CYTOLOGY ORDER CALLUM Final Result [facility]
[address] [place] [address], * Obstetric Panel (11/13/2020 12:00 AM EST) Hepatitis B Surface Ag Negative Negative [facility] Hep C Virus Ab <0.1 0.0 - 0.9 s/co ratio [facility] Comment: Negative: < 0.8 Indeterminate: 0.8 - 0.9 Positive: > 0.9 The CDC recommends that a positive HCV antibody result be followed up with a HCV Nucleic Acid Amplification test (149042). RPR Non Reactive Non Reactive [facility] [...] x10E3/uL [facility] 11/13/2020 11/13/2020 Narrative [facility] ([facility]BULATORY) - 11/15/2020 6:09 AM EST Performed at: - [facility] [address] [place], [place] [id number] Supermarket Manager: Micah Warner PhD, Phone: [phone] Alcira Ortiz MD LAB BLOOD ORDERABLES Fin al Result [facility] (AMBULATORY) [address] [place] [address], [facility] [address] [place] [address], from Last 3 Months or Most Recently Relevant to Health Maintenance Insurance [employer] PPO Advance Directives * CPR (Attempt to Resuscitate) (Latest Code Status on File) Date Activated Date Inactivated Comments 06/05/2021 6:00 AM 06/07/2021 4:15 PM Question Answer Comments Code Status (Patient has no pulse and is not breathing): CPR (Attempt to Resuscitate) Medical Interventions (Patie nt has pulse or is breathing): Full Care Teams Plant Tech Relationship Specialty Start Date End Date Provider, No Known [facility] [place] [address] PCP - General 12/04/20
--- OUTSIDE RECORDS SUMMARY | 2025-08-10 21:37 | XMS_ITS | Data Portability ---
Author Organization [place] [facility] [place] & KARLA Martinez ADMIN Address [address] [place] [address] Care Team Providers Care Insurance Examiner Name Role Phone CASSANDRA RUIZ Primary Care Provider [phone] Assessment Encounter Date Assessment Date Assessment LastModified [...] Telehealth visit is being conducted from [address] [place] [address]. This was a real-time clinical encounter over [[email or web address] ]. Consent was obtained to engage in [...] up in 2 weeks to reassess pain. [email or web address] Not available 08/26/2022 15:22:52 12/30/2022 12/30/2022 Mrs. [...] have further discussion regarding SI Joint injection. [email or web address] Not available 12/30/2022 17:02:39 Plan of Treatment Reminders Order Date Submit Date Provider Last Modified By Organization Details Last Modified Time Details Appointments None recorded. Lab CBC w/ auto diff 2022 023 [email or web address] [facility] (Lab Registration) , [address] [place] [address] [place], [address], 3 16:03:52 Referral None recorded. Procedures upper endoscopy procedure (EGD) (PROC) 2022 023 4 Not available 3 08:07:22 upper endoscopy procedure (EGD) (PROC) 2022 023 [email or web address] 4 Not available 3 08:07:23 colonoscopy procedure (PROC) 2022 023 4 Not available 3 16:11:29 injection, trigger point (PROC) - 81361, 25364 bilateral paracervica l muscles including trapezius and levator scapulae 2022 023 [email or web address] 7 Not available 3 16:28:35 epidural steroid injection, lumbar (PROC) - 78367 lei l5-s1 2021 022 BARBARA Not available 11:45:00 Surgeries None recorded. Imaging XR, abdomen, 1 view - Rule out stool burden. [address] ([facility]), [address] [place] [address] [place], [address], 3 09:13:57 Medication Orders pantoprazol e 40 mg tablet,mckinley yed release 2022 023 [facility], [address], [address], 3 11:46:52 Miralax 17 gram/dose oral powder [address] [facility], [address], [address], 3 16:03:52 Dulcolax (bisacodyl) 5 mg tablet,mckinley yed release [address] [facility], [address], [address], 3 16:03:52 Patient TargetsNo targets recorded. Patient Instructions Encounter Date Encounter Id Patient Instructions Last Modified By Organization Details Last Modified Time 08/05/2022 [id number] I have discussed in great detail our [...] __ __ __ __ __ _ LATHA: [id number] I have reviewed patient's LATHA report prior to prescribing Schedule II, III, and IV medications that require review by law. [email or web address] Not available 08/06/2022 14:59:07 08/26/2022 [id number] I have discussed in great detail our [...] __ __ __ __ __ _ LATHA: [id number] I have reviewed patient's LATHA report prior to prescribing Schedule II, III, and IV medications that require review by law. [email or web address] Not available 08/26/2022 15:22:44 12/30/2022 [id number] I have discussed in great detail our [...] __ __ __ __ __ _ LATHA: [id number] I have reviewed patient's LATHA report prior to prescribing Schedule II, III, and IV medications that require review by law. Not available 12/30/2022 17:00:21 Reason for Referral None Reported. Results Created Date Observation Date Name Description Value Unit Range Abnormal Flag Note LastModifiedBy Organization Detail LastModifiedTime 03/19/2003/19/2023 CBC AUTO W DIFF WBC 6.0 10 4.5-11 .5 Not Available [facility] (Lab Registration) [address], [place], [address], 03/19/2023 12:16:40 03/19/2003/19/2023 CBC AUTO W DIFF RBC 4.19 10 4.25-5 .57 low Not Available [facility] (Lab Registration) [address] [place], [address], 03/19/2023 12:16:40 03/19/20 23 03/19/2023 CBC AUTO W DIFF HGB 12.4 g/dL 12.0-1 5.7 Not Available [facility] (Lab Registration) [address] [place], [address], 03/19/2023 12:16:40 03/19/20 23 03/19/2023 CBC AUTO W DIFF HCT 37.1 % 36.0-4 7.0 Not Available [facility] (Lab Registration) [address] [place], [address], 03/19/2023 12:16:40 03/19/20 23 03/19/2023 CBC AUTO W DIFF MCV 88.5 fL 80-95 Not Available [facility] (Lab Registration) [address] [place], [address], 03/19/2023 12:16:40 03/19/20 23 03/19/2023 CBC AUTO W DIFF MCH 29.6 pg 27.0-3 4.0 Not Available [facility] (Lab Registration) [address] [place], [address], 03/19/2023 12:16:40 03/19/20 23 03/19/2023 CBC AUTO W DIFF MCHC 33.4 g/dL 32.0-3 6.0 Not Available [facility] (Lab Registration) [address] [place], [address], 03/19/2023 12:16:40 03/19/20 23 03/19/2023 CBC AUTO W DIFF platelet count 205 10 150-45 0 Not Available [facility] (Lab Registration) [address] [place], [address], 03/19/2023 12:16:40 03/19/20 23 03/19/2023 CBC AUTO W DIFF RDW 14.4 % 12.3-1 5.1 Not Available [facility] (Lab Registration) [address] [place], [address], 03/19/2023 12:16:40 03/19/20 23 03/19/2023 CBC AUTO W DIFF MPV 10.0 fL 7.4-10 .4 Not Available [facility] (Lab Registration) [address] [place], [address], 03/19/2023 12:16:40 03/19/20 23 03/19/2023 CBC AUTO W DIFF granulocyte% 61.9 % 40-75 Not Available [facility] (Lab Registration) [address] [place], [address], 03/19/2023 12:16:40 03/19/20 23 03/19/2023 CBC AUTO W DIFF lymphocyte% 29.8 % 15-57 Not Available [facility] (Lab Registration) [address] [place], [address], 03/19/2023 12:16:40 03/19/20 23 03/19/2023 CBC AUTO W DIFF monocyte% 5.7 % 4.0-12 .0 Not Available [facility] (Lab Registration) [address] [place], [address], 03/19/2023 12:16:40 03/19/20 23 03/19/2023 CBC AUTO W DIFF eosinophil% 2.2 % 0.0-4. 0 Not Available [facility] (Lab Registration) [address] [place], [address], 03/19/2023 12:16:40 03/19/20 23 03/19/2023 CBC AUTO W DIFF basophil% 0.2 % 0.0-1. 0 Not Available [facility] (Lab Registration) [address] [place], [address], 03/19/2023 12:16:40 03/19/20 23 03/19/2023 CBC AUTO W DIFF immature granulocytes % 0.2 % 0.0-0. 8 Not Available [facility] (Lab Registration) [address], [place], [address], 03/19/2023 12:16:40 03/19/20 23 03/19/2023 CBC AUTO W DIFF granulocyte# 3.72 10 Not Available [facility] (Lab Registration) [address] [place], [address], 03/19/2023 12:16:40 03/19/20 23 03/19/2023 CBC AUTO W DIFF lymphocyte# 1.79 10 Not Available [facility] (Lab Registration) [address] [place], [address], 03/19/2023 12:16:40 03/19/20 23 03/19/2023 CBC AUTO W DIFF monocyte# 0.34 10 Not Available [facility] (Lab Registration) [address] [place], [address], 03/19/2023 12:16:40 03/19/20 23 03/19/2023 CBC AUTO W DIFF eosinophil# 0.13 10 Not Available [facility] (Lab Registration) [address] [place], [address], 03/19/2023 12:16:40 03/19/20 23 03/19/2023 CBC AUTO W DIFF basophil# 0.01 10 Not Available [facility] (Lab Registration) [address] [place], [address], 03/19/2023 12:16:40 03/19/20 23 03/19/2023 CBC AUTO W DIFF immature granulocytes # 0.01 10 Not Available [facility] (Lab Registration) [address] [place], [address], 03/19/2023 12:16:40 03/19/20 23 03/19/2023 CBC AUTO W DIFF manual differential NO Not Available [facility] (Lab Registration) [address] [place], [address], 03/19/2023 12:16:40 03/19/20 23 03/19/2023 CBC AUTO W DIFF note Unles s other perez noted testi ng perfo rmed at: [facility] [address] [place] [address] [phone] Ayden brady MD CLIA: [id number] Not Available [facility] (Lab Registration) [address] [place], [address], 03/19/2023 12:16:40 04/02/20 23 04/02/2023 URINE PREGN MY TEST urine test NEGATI VE negati ve Not Available [facility] (Lab Registration) [address] [place], [address], 04/02/2023 11:07:40 04/02/20 23 04/02/2023 URINE PREGN MY TEST internal control PASS PASS Not Available [facility] (Lab Registration) [address] [place], [address], 04/02/2023 11:07:40 04/02/20 23 04/02/2023 URINE PREGN MY TEST note Unles s other perez noted testi ng perfo rmed at: [facility] [address] [place] [address] [phone] Ayden brady MD CLIA: [id number] Not Available [facility] (Lab Registration) [address] [place], [address], 04/02/2023 11:07:40 05/14/20 23 05/14/2023 XR, abdom en, 1 view No observ ation record ed. [email or web address] [facility] (Radiology) [address] [place], [address], 05/16/2023 13:55:43 05/14/20 23 05/14/2023 XR, abdom en, 1 view [facility] [address] [facility] [place] [address] Phone: Fax: Name: GULSHAN GODINEZ Exam Date: : 1994 Age 27 Gender : F Access ion: [id number] Physic santiago: MEMO AHMADI Facili ty: [facility] Facili ty HSV: Outpat ient Exam: ABD [...] you for referr ing GULSHAN GODINEZ to [facility]. Legall y authen ticate d by POPE CONSUELO Kern DO 05-14 15:53: 44 CC'ed Logic: Orderi ng Provid er: KEATON Ortega CC Provid er: NICHOL ROA Attend ing Provid er: KEATON Ortega Referr ing Provid er: KEATON Ortega Admitt ing Provid er: KEATON Ortega [facility] (Radiology) [address] [place] [address] [place], [address], 05/16/2023 13:55:43 Result Notes Documentation Provider Name and Address Organization Details Recorded Time Xr, Abdomen, 1 View : [address] [place] [address] Name: ISABELA GODINEZ Exam Date: 05/14/2023 : 1995 Age 27 Gender: F Physician: NOEMI AHMADI Facility: [facility] Facility HSV: Outpatient Exam: ABD KUB 1V [...] Thank you for referring ISABELA GODINEZ to [facility]. Legally authenticated by POPE CONSUELO Kern DO 2023-05-14 15:53:44 CC'ed Logic: Ordering Provider: KEATON RING CC Provider: BACILIO ROA Attending Provider: KEATON RING Referring Provider: KEATON RING Admitting Provider: KEATON jacobsen, [place] [facility] [place] & [place] 05/16/2023 13:55:43 Problems Name Problem SNOMED Code Status Onset Date Resolution Date Notes Provider Name and Address Organization Details Recorded Time Spinal stenosis of lumbar region 61293276 Active 2021 Shakira Vallecillo null, [place] [facility] [place] & [place] 2 14:55:03 Lumbar discogenic pain 886560323 Active 2021 Shakira Vallecillo null[place] [facility] [place] 2 14:55:22 Lumbar radiculopathy 529367001 Active 2021 Shakira Vallecillo null, [place] [facility] [place] 2 14:55:26 Ligamentous strain 680686097 Active 2021 Shakira jacobsen, [place] [facility] [place] 2 14:55:50 Scoliosis deformity of spine 342359536 Active 2021 Shakira Vallecillo null, [place] [facility] [place] 2 14:56:39 Radicular pain 21148588 Active 2021 Shakira Vallecillo null, [place] [facility] [place] 2 14:56:47 Myofascial pain 720892941 Active 2021 Shakira Vallecillo null[place] [facility] [place] 2 14:56:55 Spinal stenosis in cervical region 40643590 Active 2021 Shakira Vallecillo null, [place] [facility] [place] 2 14:57:44 Cervical radiculopathy 99373153 Active 2021 Shakira Vallecillo null, [place] [facility] [place] 2 14:58:04 Neck pain 27663338 Active 2021 Shakira Vallecillo null, [place] [facility] [place] 2 14:58:15 Brachial (cervical) neuritis 122527127 Active 2021 Shakira Vallecillo null, [place] [facility] [place] 2 14:58:21 Chronic idiopathic constipation 01307811 Active 2022 Noemi Ahmadi NP [address], [address], [place], [address], [place] [facility] [place] & [place] 3 11:46:46 Gastro-esophag eal reflux disease with esophagitis 242284560 Active 2022 Noemi Ahmadi NP [address], [address], [place], [address], [place] [facility] [place] & [place] 3 14:44:37 Left lower quadrant pain 808926394 Active 2022 Noemi Ahmadi NP [address], [address], [place], [address], [place] [facility] [place] & [place] 14:44:37 Problem Notes None recorded. Procedures Surgical History Date Name Laterality Status Provider Name and Address Organization Details Recorded Time 04/02/20 EGD/Endoscopy completed [facility] [place] [facility] & [place] 05/14/2023 13:48:42 04/02/20 23 Colonoscopy completed [facility] [place] [facility] & [place] 05/14/2023 13:49:07 10/27/19 17 cholecystectomy completed stephanie salgueroaft [place] [facility] & [place] 08/05/2022 12:46:08 10/27/19 tonsillectomy and adenoidectomy completed stephanie hola [place] [facility] & [place] 08/05/2022 12:46:26 extraction of wisdom tooth completed [facility] [place] [facility] & [place] 05/14/2023 13:48:14 Dilation and Curettage completed [facility] [place] [facility] & [place] 05/14/2023 13:48:57 Imaging Results None [...] Updated DateTime 3 154.94 cm 37.2 kg/m2 66850.7 g 98 [degF] 98 % 98 % 69 /min [facility] & [place] 3 10:56:39 Date Recorded Body height Body mass index (BMI) Body weight Body temperature Oxygen saturation Oxygen saturation in Arterial blood by Pulse oximetry Heart rate Provider Name and Address Organization Details Last Updated DateTime 3 154.94 cm 37.2 kg/m2 77697.7 g 97.4 [degF] 99 % 99 % 86 /min [facility] & [place] 3 13:50:07 Date Recorded Body height Body mass index (BMI) Body weight Body temperature Oxygen saturation Oxygen saturation in Arterial blood by Pulse oximetry Heart rate Respiratory rate Systolic And Diastolic Provider Name and Address Organization Details Last Updated DateTime 2 154.94 cm 37.4 kg/m2 25181.0 1 g 96.6 [degF] 99 % 99 % 63 /min 16 /min 121/85 mm[Hg] stephanie simental [facility] & [place] 2 10:22:56 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 None recorded. Functional [...] ICD10 Code Diagnosis IMO Codes Diagnosis Note [id number] Oscar Bowman MD [facility] [address] [place] [address] [place] [address] 08/05/2022 10:00:05 08/05/2022 10:46:52 Lumbar radiculopathy 435698942 M54.16 Spinal nishant nosis of lumbar region 83285904 M99.53 Lumbar dis cogenic pain 107233667 M51.26 Ligamentous strain 39217 6003 R29.898 Myofascial pain 14551038 9 M79.10 Spinal nishant nosis in cervical region 43480699 M99.51 Cervical radiculopathy 94260869 M54.12 108268 CHRISTINE LOOMIS PA-C [facility] [address] [place] [address] 08/26/2022 10:09:15 08/26/2022 16:06:28 Lumbar radiculopathy 459879969 M54.16 Spinal nishant nosis of lumbar region 53238659 M99.53 M48.061 Lumbar dis cogenic pain 990441236 M51.26 Ligamentous strain 07150 6003 R29.898 Myofascial pain 61100472 9 M79.10 Spinal nishant nosis in cervical region 77878426 M99.51 M48.02 Cervical radiculopathy 78252351 M54.12 [id number] Oscar Bowman MD [facility] [address] [place] [address] 12/30/2022 13:34:40 12/30/2022 14:53:00 Lumbar radiculopathy 632594978 M54.16 Spinal nishant nosis of lumbar region 26386691 M99.53 M48.061 Lumbar dis cogenic pain 978929185 M51.26 Ligamentous strain 21836 6003 R29.898 Myofascial pain 68691992 9 M79.10 Spinal nishant nosis in cervical region 01824511 M99.51 M48.02 Cervical radiculopathy 93430846 M54.12 Spinal enthesopathy 1031 7009 M46.03 [id number] Noemi Ahmadi NP [facility] [address] [place] [address] 03/19/2023 10:46:42 03/19/2023 12:27:10 Hematochezia 790523198 K92.1 Of her 5 year history of episodes of hematochez ia off and on. Most recent episode 3 weeks ago, large amount which lasted a 5-6 days. Plan for CBC today. Recommend colonoscop y to evaluate for internal hemorrhoid s, polyps, other. Chronic id iopathic constipation 81125738 K59.04 Failed treatment with MiraLax, fiber, OTC laxatives. Recommend trial of Linzess 72 mcg and 145 mcg, samples 8 days each provided to patient clinic today. Will send prescripti on based on response to sample medication . Gastro-eso phageal reflux disease with esophagitis 433448071 K21.00 Three month history increased GERD symptoms. Failed treatment Pepcid. Recommend Protonix 40 mg p.o. daily for treatment. Recommend EGD to evaluate for esophagiti s, hiatal hernia, H pylori, other. Nausea 439243666 R11.0 History of cholecyste ctomy. Plan for EGD to evaluate for H pylori, gastritis, PUD. [id number] Noemi Ahmadi NP [facility] [address] [place] [address] 05/14/2023 13:27:23 05/14/2023 14:48:06 Gastro-esophageal reflux disease with esophagitis 056644991 K21.00 reflux esophagiti s confirmed on pathology 04/03/2023 . Symptoms remain well controlled with use of Pantoprazo le at this time. Recommend continue reflux precaution s. Left lower quadrant pain 702159347 R10.32 Colonoscop y with negative random colon biopsies 04/02/23. Recommend xray abd KUB to r/o stool burden. She has been evaluated by [facility] and taisha cano laproscopi c evaluation for endometrio sis. Chronic id iopathic constipation 32871515 K59.04 Improved with use of Linzess 72 [...] Name 05/15/2024 1 [employer] (POS) Garrett Godinez [id number] Isabela Godinez 05/15/2024 1 [employer] (POS) Garrett Maldonadoatt [id number] Isabela Du Godinez Notes Date Note Type [...] MRIs of lumbar/cervical spine Oscar Bowman MD [address] [place] [address], [address], [facility] 08/07/2022 09:42:01 2 text/html ROS as [...] MRIs of lumbar/cervical spine CHRISTINE LOOMIS PA-C [address] [facility], [place], [address], [facility] & [place] 08/26/2022 15:23:38 3 text/html ROS as noted [...] of lumbar/cervical spine Oscar Bowman MD [address], [place], [address], [facility] 12/31/2022 13:22:17 3 text/html ROS as [...] soda and coffee. Noemi Ahmadi NP [address] [facility], [address], [place], [address], [facility] 03/19/2023 11:47:36 3 text/html ROS as [...] abdominal pain. She has been evaluated by [facility], they are considering laproscopic evaluation for endometriosis. Noemi Ahmadi NP [address] [place] [address], [address], [place], [address], [facility] - [place] - [place] & [place] 05/14/2023 14:45:24 OBGyn Episode No OBEpisode recorded.
--- OUTSIDE RECORDS SUMMARY | 2025-08-10 21:37 | XMS_ITS | Patient Health Record ---
Author Organization [facility] Address [address] [place] [id number] Care Team Providers Care Environmental Services Director Name Role Phone Johnathan Duenas Primary Care Provider Adama Ballard Unavailable [phone] Radha Awad Unavailable [phone] Allergies No Known Allergies Results Component Value [...] - 38 plat 91 100 - 400 CBC Venipuncture (in house) Reviewed date:12/30/2024 09:22:03 [...] date:01/05/2025 01:01:13 PM Interpretation:Normal Performing Lab: Notes/Report: CLIA: [id number] Nick Brady MD, Needle Maker [address] [place] [address] , [place] [address] Test performed by [facility] Sodium 141 135-145 mmol/L Potassium 4.2 3.5-5.3 [...] 0.71 Performing Lab: Notes/Report: Test performed by [facility] [address] [place] [address] , [address], [place] [address] Nick Brady MD, Needle Maker CLIA: [id number] Erythrocyte Sedimentation Rate (ESR), Automated 11 <26 mm/hr Rheumatoid Factor 12.0 <14.1 IU/mL C-Reactive Protein (CRP) 0.71 <0.50 mg/dL Antinuclear Antibodies (LATRICIA) Screen, Reflex LATRICIA 9 Panel Negative Negative This test is performed by Multiplex Bead Immunoassay methodology. Antinuclear Antibodies (LATRICIA) Result Note SEE COMMENT For positive Autoantibodies, please refer to the interpretive chart here: [email or web address]/w p-content/uploads/[email or web address]-Inter pretive-Chart.pdf CCP Antibodies <0.5 <0.5-3.0 U/mL P-Thyroid Antibody Panel (TA BS) Reviewed date:01/05/2025 01:01:14 PM Interpretation:Normal Performing Lab: Notes/Report: Test performed by [facility] [address], [place] [address] Nick Brady MD, Needle Maker CLIA: [id number] Thyroid Peroxidase Antibody 17 <9-34 IU/mL An [...] Interpretation:0.17 Performing Lab: Notes/Report: Test performed by [facility] [address] [place], [place] [address] [place] [address] Nick Brady MD, Needle Maker CLIA: [id number] TSH 0.17 0.43-5.25 mU/L ultrasound : thyroid Reviewed date:01/05/2025 01:01:13 PM Interpretation:homogenous thyroid Performing Lab: Notes/Report: homogenous thyroid P-T4 Free (thyroxine) Reviewed date:01/05/2025 01:01:14 PM Interpretation:Normal Performing Lab: Notes/Report: Test performed by [facility] [address] [place] [address] [place] [address] Nick Brady MD, Needle Maker CLIA: [id number] Thyroxine Free (free T4) 1.50 0.86-1.76 ng/dL P-Total T3 Reviewed date:01/27/2025 02:33:57 PM Interpretation:Normal Performing Lab: Notes/Report: CLIA: [id number] Nick Brady MD, Needle Maker [address] [place] [address] , [place] [address] Test performed by [facility] Total T3 1.98 0.80-2.00 ng/mL P-TSH Reviewed date:01/27/2025 02:33:57 PM Interpretation:0.01 Performing Lab: Notes/Report: Test performed by [facility] [address] , [place] [address] Nick Brady MD, Needle Maker CLIA: [id number] TSH 0.01 0.43-5.25 mU/L Rapid Strep- Inhouse Reviewed date:05/11/2025 05:36:52 PM Interpretation: Performing Lab: Notes/Report: strep test Neg P-Amylase Reviewed date:05/13/2025 09:49:59 AM Interpretation:Normal Performing Lab: Notes/Report: CLIA: [id number] Nick Brady MD, Needle Maker [address] [place] [address] , [place] [address] Test performed by [facility] Amylase 42 28-100 U/L P-Antistreptolysin O AB Reviewed date:05/13/2025 09:49:59 AM Interpretation:Normal Performing Lab: Notes/Report: Test performed by [facility] [address] [place] [address] , [place] [address] Nick Brady MD, Needle Maker CLIA: [id number] Antistreptolysin O AB 175.0 <20-200.0 IU/mL P-Comprehensive Metabolic Pa helio (CMP) Reviewed date:05/13/2025 09:49:59 AM Interpretation:bili 1.4 Performing Lab: Notes/Report: Test performed by [facility] [address] [place] [address] , [place] [address] Nick Brady MD, Needle Maker CLIA: [id number] Sodium 137 135-145 mmol/L Potassium 4.1 3.5-5.3 [...] Interpretation:Reactive Performing Lab: Notes/Report: Test performed by [facility] [address] [place] [address] [place] [address] Nick Brady MD, Needle Maker CLIA: [id number] Cytomegalovirus (CMV) Antibody, IgG Reactive Non-Reactive This test is performed by the [employer] Cytomegalovirus IgG assay. Results from assays of other manufacturers cannot be used interchangeably. Non-reactive CMV IgG-specific antibodies not detected. Borderline Recommend collection of a second sample, within 2 weeks, for repeat testing. Reactive CMV IgG-specific antibodies detected. Cytomegalovirus (CMV) Antibodies, IgM Reactive Non-Reactive This test is performed by the [employer] Cytomegalovirus IgM assay. Results from assays of other manufacturers cannot be used interchangeably. Non-Reactive CMV IgM-specific antibodies not detected. Borderline Recommend collection of a second sample, within 2 weeks, for repeat testing. Reactive CMV IgM-specific antibodies detected. P-Deidre Dewey Virus (EBV) V CA Antibodies IgG IgM Reviewed date:05/13/2025 09:50:00 AM Interpretation:EBV IgG >8 Performing Lab: Notes/Report: Test performed by [facility] [address] [place] [address] [address], [place] [address] Nick Brady MD, Needle Maker CLIA: [id number] Deidre Dewey Virus (EBV) VCA Antibodies IgG >8.0 <0.9 AI Deidre Dewey Virus (EBV) VCA Antibodies IgM 0.3 <0.9 AI P-Lipase Reviewed date:05/13/2025 09:50:00 AM Interpretation:Normal Performing Lab: Notes/Report: Test performed by [facility] [address] , [address], [place] [address] Nick Brady MD, Needle Maker CLIA: [id number] Lipase 19.8 13.0-60.0 U/L P-Sed Rate (ESR) Reviewed date:05/13/2025 09:50:00 AM Interpretation:Normal Performing Lab: Notes/Report: [facility] , [address], [place] [address] Nick Brady MD, Needle Maker CLIA: [id number] Erythrocyte Sedimentation Rate (ESR), Automated 18 <26 mm/hr P-T4 Free (thyroxine) Reviewed date:01/27/2025 02:33:57 PM Interpretation:2.1 Performing Lab: Notes/Report: Test performed by [facility] [address] , [place] [address] Nick Brady MD, Needle Maker CLIA: [id number] Thyroxine Free (free T4) 2.10 0.86-1.76 ng/dL CBC Fingerstick (in house) Reviewed date:09/01/2024 04:21:31 [...] - 38 plat 186 100 - 400 Reason For Referral Diagnosis 1 Rash (R21) [facility] Referring Provider First Name Johnathan Referring Provider Last Name Yulissa Referring Provider [facility] ctice Referred Provider Herber Ojeda Referred Provider Specialty Dermatology General Notes Zuleyka Lin 2024 10:44:17 AM > faxed to Dr. Ojeda at [facility] Referral Priority Routine Diagnosis 1 Generalized abdomina l pain (R10.84) Diagnosis 2 Abdominal bloating ( R14.0) Diagnosis 3 Chronic nausea (R11. 0) [facility] Referring Provider First Name Johnathan Referring Provider Last Name Yulissa Referring Provider [facility] ctice Referred Organization [facility] OP Referred Provider JOSHUA BERNARDO Referred Address [address] [facility] [address] [place],[phone], Referred Provider Specialty Gastroentero logy General Notes Zuleyka Lin 2024 09:03:00 AM > faxed to [facility] GI Referral Priority Routine Medications Medication [...] day Active Ketoconazole 2 % 1 application Director Clinical Research ally Once a day 05/20/2025 Active Diflucan [...] W/U Status Risk Notes Problem Essential hypertension (69403387) Essential hypertension (I10) Active confirmed Problem Hyperthyroidism (54762154) Hyperthyroidism (E05.90) Active confirmed Problem Mixed anxiety and depressive disorder (541492277) Depression with anxiety (F41.8) Active confirmed Problem Chronic pain (36264648) Other chronic pain (G89.29) Active confirmed Problem Thrombocytopenia (426869991) Thrombocytopenia (D69.6) Active confirmed Problem Chronic rhinitis (93561920) Rhinitis, unspecified type (J31.0) Active confirmed Problem Thyromegaly (8497133) Thyromegaly (E01.0) Active confirmed Problem Obesity (205624912) Non morbid o besity (E66.9) Active confirmed Problem Primary hypertension (70167708) Primary hypertension (I10) Active confirmed Vital Signs Heart Rate 80 /min 05/11/2025 Blood pressure diastolic 70 mm Hg 05/11/2025 Height 61.5 in 05/11/2025 Blood pressure systolic 110 mm Hg 05/11/2025 Weight 221 lbs 05/11/2025 BMI 41.08 kg/m2 05/11/2025 Encounters Encounter Location Date Provider Diagnosis [facility] [address] [place], [place] [id number] 09/01/2024 Johnathan Fairfax Acute URI J06.9 and Tinea corporis B35.4 [facility] [address] [place], [place] [id number] 11/10/2024 Johnathan Fairfax Essential hypertensi on I10 [facility] [address] [place], [place] [id number] 11/15/2024 Johnathan Fairfax Herpes zoster withou t complication B02.9 [facility] [address] [place], [place] [id number] 12/29/2024 Radha Crowdy Myalgia M79.10 ; Arthralgia, unspecified joint M25.50 ; Heart palpitations R00.2 ; Hair loss L65.9 ; Other fatigue R53.83 ; Elevated liver enzymes R74.8 ; Thyromegaly E01.0 and Rash R21 [facility] [address] [place], [place] [id number] 01/26/2025 Johnathan Fairfax Low TSH level R79.89 and Rash R21 [facility] [address] [place], [place] [id number] 02/10/2025 Radha Crowdy Acute otitis media, right H66.91 ; Acute URI J06.9 and Body aches R52 [facility] [address] [place], [place] [id number] 02/18/2025 Johnathan Fairfax Acute diarrhea R19.7 and Hyperthyroidism E05.90 [facility] [address] [place], [place] [id number] 05/11/2025 Johnathan Fairfax Fever, unspecified R 50.9 ; Sorethroat J02.9 ; Epigastric abdominal pain R10.13 ; Heartburn R12 ; Thrombocytopenia D69.6 ; Family history of breast cancer in female Z80.3 and Skin rash R21 [facility] [address] [place], [place] [id number] 05/31/2025 Johnathan Fairfax Thrombocytopenia D69 .6 [facility] [address] [place], [place] [id number] 01/03/2025 Radha Crowdy [facility] [address] [place] [id number] 01/27/2025 Johnathan Fairfax [facility] [address] [place] [id number] 02/07/2025 Johnathan Fairfax [facility] [address] [place] [id number] 02/15/2025 Johnathan Fairfax [facility] [address] [place] [id number] 02/16/2025 Johnathan Fairfax [facility] [address] [place] [id number] 02/28/2025 Johnathan Fairfax [facility] [address] [place] [id number] 05/13/2025 Johnathan Fairfax [facility] [address] [place] [id number] 05/20/2025 Johnathan Fairfax Skin rash R21 [facility] [address] [place] [id number] 05/20/2025 Johnathan Fairfax [facility] [address] [place] [id number] 05/26/2025 R Randall Nellie [facility] [address] [place] [id number] 06/13/2025 Johnathan Fairfax Rash R21 [facility] [address] [place], [place] [id number] 06/30/2025 Johnathan Fairfax Generalized abdomina l pain R10.84 ; Abdominal bloating R14.0 and Chronic nausea R11.0 [facility] [address] [facility] [address] [place], [place] [id number] 01/28/2025 Johnathan Fairfax [facility] [address] [facility] [address] [place], [place] [id number] 04/30/2025 Johnathan Fairfax Assessments Encounter Date Diagnosis (ICD Code) Assessment [...] FRANCES [employer] [address] [place] [address] [phone] [id number] ISABELA GODINEZ Self - patient is the insured Medical (General) History Surgical History Surgery Date(Month/Year) Tonsillectomy 2000 Bilateral Ankles 2019 Cholecystectomy 2017 [facility] 2014 D & C 2019 Tubal Ligation 2024 Hospitalization History Reason Date(Month/Year)
--- OUTSIDE RECORDS SUMMARY | 2025-08-10 21:37 | XMS_ITS | Clinical Summary ---
Author Organization Healthcare Address [place] [address] Care Team Providers Care Take Away Attendant Name Role Phone Pcp, No Primary Care [...] Vaccines (1 - 3-dose SCDM series) 2024 [id number] Vaccine (3 - 2024- season) 2025 08/06/2021, [...] to complete this topic Insurance Care Teams Take Away Attendant Relationship Specialty Start Date End Date [place] [address] PCP - General Family Medicine 04/08/24
--- OUTSIDE RECORDS SUMMARY | 2025-08-10 21:37 | XMS_ITS | Data Portability ---
Author Organization [facility] Address [address] [facility] [address] [place] [address] Assessment No assessment recorded. Plan of Treatment Reminders Order Date Submit Date Provider Last Modified By Organization Details Last Modified Time Details Appointments None recorded. Lab TSH, serum or plasma 2024 025 [facility], [address] [place] [address], [phone], 5 12:55:28 T4, free, serum 2024 025 [facility], [address] [place] [address], [phone], 5 12:55:29 T3, free, serum or plasma 2024 025 [facility], [address] [place] [address], [phone], 5 12:55:26 tsi (thyroid-st imulating immunoglobu gab), serum 2024 025 [facility], [address] [place] [address], [phone], 5 17:55:21 thyroid peroxidase (tpo) Ab, serum 2024 025 [facility], [address] [place] [address], [phone], 5 16:48:25 Referral None recorded. Procedures None recorded. Surgeries None recorded. Imaging None recorded. Medication Orders None recorded. Patient TargetsNo targets recorded. Patient InstructionsNo instructions recorded. Reason for Referral None Reported. Results Created Date Observation Date Name Description Value Unit Range Abnormal Flag Note LastModifiedBy Organization Detail LastModifiedTime 03/23/2003/23/2025 T3 FREE T3 free 3.00 pg/mL 2.00-4 .40 normal Not Available [facility] [address] [place] [address], [phone], 03/23/2025 12:55:26 03/23/20 25 03/23/2025 TSH TSH 0.019 u[IU] /mL 0.270- 4.200 low Not Available [facility] [address] [place] [address], [phone], 03/23/2025 12:55:28 03/23/20 25 03/23/2025 T4,FR EE T4,free 1.14 NG/dL 0.93-1 .70 normal Not Available [facility] [address] [place] [address], [phone], 03/23/2025 12:55:29 03/23/20 25 03/24/2025 THYRO ID PEROX IDASE AB thyroid peroxidase Ab 1 IU/mL <9 normal Not Available [facility] [address] [place] [address], [phone], 03/24/2025 16:48:25 03/23/20 25 03/29/2025 THYRO ID STIMU LATIN G IGS thyroid stimulating igs <89 %_bas ghazal <140 normal Thyro id stimu latin g immun oglob ulins (TSI) can engag e the TSH dental office receptionist tors resul ting in hyper thyro idism [...] for clini ana purpo ses. Not Available [facility] [address] [place] [address], [phone], 03/29/2025 17:55:21 04/20/2004/20/2025 TSH TSH 1.070 u[IU] /mL 0.270- 4.200 normal Not Available [facility] [address] [place], [address], 04/20/2025 09:37:58 04/20/2004/20/2025 T4,FR EE T4,free 0.96 NG/dL 0.93-1 .70 normal Not Available [facility] [address] [place] [address], [phone], 04/20/2025 09:37:59 04/20/2004/20/2025 T3 FREE T3 free 2.93 pg/mL 2.00-4 .40 normal Not Available [facility] [address] [place], [address], 04/20/2025 09:38:01 04/01/20 25 01/03/2025 US, thyro id No observ ation record ed. [email or web address] Not Available 2024 08:24:49 Result Notes None [...] Address Organization Details Last Updated DateTime 03/23/2025 77480.6 g 41.5 kg/m2 154.94 cm 112/68 mm[Hg] [facility] 03/23/2025 11:18:55 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 None recorded. Functional Status None recorded. Mental Status None recorded. Family History Nothing Reported. 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 No medical history recorded. Gynecological HistoryNo gynecological history recorded. Obstetrics History GPAL:G 0 P 0 0 0 0 Past Encounters Encounter ID Performer Location Encounter Start Date Encounter Closed Date Diagnosis/Indication Diagnosis SNOMED-CT Code Diagnosis ICD10 Code Diagnosis IMO Codes Diagnosis Note [id number] STANISLAW LOVE APRN ENDOCRINO [facility]Y [address] [place] [address] 03/23/2025 11:03:56 03/23/2025 11:53:33 Hyperthyroidism 53518584 E05.90 11936 No referral labs on fileDiagno december of [...] ID Guarantor Name 04/22/2025 1 [place] [id number] 2 Césarraymundo Blayne [id number] Jillian Blayne Notes Date Note Type [...] anxiety and rapid heart rate. STANISLAW LOVE, FILLER LEAF [facility] [address] [place], [address], [facility] 03/23/2025 12:47:06 OBGyn Episode No OBEpisode recorded.
--- OUTSIDE RECORDS SUMMARY | 2025-08-10 21:37 | XMS_ITS | Encounter Summary ---
[facility] Organization [facility] Address [address] [place] [address] Care Team Providers Care Bee Breeder Name Role Phone Provider, No Known Primary Care Provider Unavail able Reason for Visit * Reason Onset Date Comments Med Refill 10/27/2022 Encounter Details Date Type Department Care Team (Late st Contact Info) Description 10/27/2022 Refill [facility] [address] [place] [address] Henrique Barney MD [address] [facility] [address] [place] [address] 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 Tobacco Use Types Packs/Day Years [...] Date Recorded Retired Total Score 14 07/16/2021 [facility] [place] of Occupat ional Health - Occupational Stress [...] things needed for daily living? No 11/13/2020 [place] Depression Scale Answer Date Recorded [place] Depression Scale Total 5 06/05/2021 The thought [...] on filedocumented in this encounter Care Teams Bee Breeder Relationship Specialty Start Date End Date Provider, No Known [facility] [place] [address] PCP - General 12/04/20 documented as of this encounter
--- OUTSIDE RECORDS SUMMARY | 2025-08-10 21:37 | XMS_ITS | Clinical Summary ---
Author Organization [facility] Address [address] [place] [address] Care Team Providers Care Aircraft Hydraulic Equipment Mechanic Name Role Phone Unknown, Attending Provider Primary [...] therelease of HIV test results or diagnoses. [id number] Allergies No known active allergies Medications [...] plan: To be determined at 32 week [facility] visit Known anomaly, antepartum 05/09/2024 Overview [...] on US today 05/31/2024: echo normal at [facility], will be for 32 weeks team [...] any time in the past 12 m [facility], were you homeless or living in a half-way (including now)? No 05/07/2024 Yearly Questionnaire Answer [...] Date Last Done Comments Hepatitis C Screening (?) 1997 Depression Screening 2015 Immunization: Hepatitis B (1 of 3 - 19+ 3-dose series) 2016 Cervical Cancer Screening/Pap Smear (?) 2018 Renal Function/GFR 05/07/2025 05/07/2024, 05/06/2024 Diabetes Screening 05/17/2025 05/17/2024 Immunization: COVID-19 ( season) 2025 08/06/2021, 07/17/2021 Immunization: Influenza (?) (#1) 06/27/2025 Immunization: DTaP/Tdap/Td (5 - Td [...] 1 Hour (05/17/2024 11:30 AM EDT) Pathologist [facility] Glucose Challenge, 1 Hr 132 mg/dL 05/17/2024 12:49 PM EDT [facility] Comment: 1 HOUR GLUCOSE CHALLENGE INTERPRETATION: Women/ Non Adult - 50 gram glucose load screening for gestational diabetes Expected normal response: A one hour glucose result of less than 140 mg/dL. Plasma 05/17/2024 11:3 0 AM EDT 05/17/2024 12:11 PM EDT us Timoteo Sosa MD LAB BLOOD ORDERABLES F inal Result [facility] [address] * (ABNORMAL) Comprehensive Metabolic Panel, STAT (05/07/2024 5:46 PM EDT) Pathologist [facility] Sodium 138 133 - 146 mmol/L 05/07/2024 6:30 PM EDT [facility] Potassium 3.6 3.5 - 5.3 mmol/L 05/07/2024 6:30 PM EDT [facility] Chloride 107 98 - 110 mmol/L 05/07/2024 6:30 PM EDT [facility] CO2 21 21 - 33 mmol/L 05/07/2024 6:30 PM EDT [facility] Anion Gap 10 3 - 16 mmol/L 05/07/2024 6:30 PM EDT [facility] BUN 4(L) 7 - 25 mg/dL 05/07/2024 6:30 PM EDT [facility] Creatinine 0.47(L) 0.60 - 1.30 mg/dL 05/07/2024 6:30 PM EDT [facility] Glucose 174(H) 70 - 100 mg/dL 05/07/2024 6:30 PM EDT [facility] Calcium 8.7 8.6 - 10.3 mg/dL 05/07/2024 6:30 PM EDT [facility] Total Bilirubin 0.4 0.0 - 1.5 mg/dL 05/07/2024 6:30 PM EDT [facility] AST 14 13 - 39 U/L 05/07/2024 6:30 PM EDT [facility] ALT 10 7 - 52 U/L 05/07/2024 6:30 PM EDT [facility] Alkaline Phosphatase 56 36 - 125 U/L 05/07/2024 6:30 PM EDT [facility] Total Protein 6.5 6.4 - 8.9 g/dL 05/07/2024 6:30 PM EDT [facility] Albumin 3.4(L) 3.5 - 5.7 g/dL 05/07/2024 6:30 PM EDT [facility] Osmolality, Calculated 287 278 - 305 mOsm/kg 05/07/2024 6:30 PM EDT [facility] EGFR >90 05/07/2024 6:30 PM EDT [facility] Comment: As of 2021, [...] MD LAB BLOOD ORDERABLES Final Resul t [facility] [address] * , HIV 1/2 Ab+Ag with Reflex (05/06/2024 9:10 PM EDT) HIV 1+2 AB/AGN Nonreactive Nonreactive 05/06/2024 10:08 PM EDT [facility] Serum 05/06/2024 9:10 PM EDT 05/06/2024 9:21 PM EDT Narrative [facility] - 05/06/2024 10:08 PM EDT HIV-1 p24 Antigen and HIV-1/HIV-2 Antibody not detected. Fernando Leonard MD LAB BLOOD ORDERABLES Final Re sult Performing Organization Address City/[facility]/ZIP Co de Phone Number [facility] [address] [facility]. [address] from Last 3 Months or Most Recently Relevant to Health Maintenance Insurance [place] [id number] BLUE ACCESS Advance Directives For more information, please contact: [phone] * Full Code (Latest Code Status on File) Date Activated Date Inactivated Comments 05/06/2024 8:33 PM 05/09/2024 5:04 PM Care Teams Aircraft Hydraulic Equipment Mechanic Relationship Specialty Start Date End Date Unknown, Attending Provider PCP - General 05/06/24
[2025-08-10 22:04] VITALS: BP 122/82; PULSE 82; O2SAT 100
[2025-08-10 23:10] VITALS: BP 139/89; PULSE 69; O2SAT 100
--- NOTE | 2025-08-10 23:32 | CT_ITS ---
PROCEDURE INFORMATION: Exam: CT Chest Without Contrast; Diagnostic Exam date and time: 08/10/2025 11:54 PM Age: 29 years old Clinical indication: Pain; Other: Throat /chest; Additional info: Concern for esophageal perforation TECHNIQUE: Imaging protocol: Diagnostic computed tomography of the chest without contrast. Radiation optimization: All CT scans at this facility use at least one of these dose optimization techniques: automated exposure control; mA and/or kV adjustment per patient size (includes targeted exams where dose is matched to clinical indication); or iterative reconstruction. COMPARISON: CR XR CHEST PORTABLE 09/27/2023 6:20 PM FINDINGS: Lungs: Unremarkable. No consolidation. No masses. Pleural spaces: Unremarkable. No pneumothorax. No pleural effusion. Heart: Unremarkable. No cardiomegaly. No pericardial effusion. Coronary arteries: No atherosclerotic calcification of coronary arteries. Esophagus: Scattered extraluminal high density collection in esophageal lumen without obvious extra esophageal extravasation. No obvious extra esophageal fluid collection. Mediastinal space: No pneumomediastinum. Unremarkable. Lymph nodes: Unremarkable. No enlarged lymph nodes. Vasculature: Unremarkable. No aortic aneurysm. Bones/joints: No acute findings identified. Soft tissues: Unremarkable. IMPRESSION: No obvious secondary signs of esophageal perforation identified. If clinical concern persists, consider fluoroscopic upper GI exam.
[2025-08-10] MEDS: DIATRIZOATE MEG 66% & DIATRIZOATE NA 10% 30ML UDC 30 ML PO (23:48)
[2025-08-11 00:08] VITALS: BP 120/87; PULSE 78; RESP 16; O2SAT 98
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
[2025-08-11 01:18] VITALS: BP 116/82; PULSE 71; RESP 16; TEMP 37; O2SAT 97
[2025-08-11] MEDS: diazePAM 5MG TABLET 5 MG PO (01:22)
== END 2025-08-11 01:25 | disposition home or self-care (01) ==
PROVIDERS: Emergency Provider Student in an Organized Health Care Education/Training Program; PCP Family Medicine
DX: R07.2 Precordial pain (principal); R13.19 Other dysphagia; R07.0 Pain in throat; K21.9 Gastro-esophageal reflux disease without esophagitis
CPT/HCPCS: 71250; 99283; 99284; Q9963

== ENCOUNTER 2025-09-02 11:58 | Outpatient (CLI) | payer BC, SELFPAY ==
--- OUTSIDE RECORDS SUMMARY | 2024-12-29 04:45 | XMS_ITS ---
Author Organization [facility] Address [address] [place] [id number] Care Team Providers Care Welt Insole Channeler Name Role Phone Johnathan Duenas Primary Care Provider Radha Awad Unavailable [phone] Allergies No Known Allergies Results Component Value [...] Interpretation:Normal Performing Lab: Notes/Report: Test performed by [facility], [facility] [address] [place] [address] , [address], [place] [address] Nick Brady MD, [employer] CLIA: [id number] Sodium 141 135-145 mmol/L Potassium 4.2 3.5-5.3 [...] mg/dL A/G Ratio 1.4 1.1-2.5 [facility] Reviewed date:01/05/2025 01:01:14 PM Interpretation:CRP 0.71 Performing Lab: Notes/Report: Test performed by [facility] [address] [place] [address] , [address], [place] [address] Nick Brady MD, [employer] CLIA: [id number] Erythrocyte Sedimentation Rate (ESR), Automated 11 <26 mm/hr Rheumatoid Factor 12.0 <14.1 IU/mL C-Reactive Protein (CRP) 0.71 <0.50 mg/dL Antinuclear Antibodies (LATRICIA) Screen, Reflex LATRICIA 9 Panel Negative Negative This test is performed by Multiplex Bead Immunoassay methodology. Antinuclear Antibodies (LATRICIA) Result Note SEE COMMENT For positive Autoantibodies, please refer to the interpretive chart here: [email or web address] CCP Antibodies <0.5 <0.5-3.0 U/mL P-T4 Free (thyroxine) Reviewed date:01/05/2025 01:01:14 PM Interpretation:Normal Performing Lab: Notes/Report: Test performed by [facility] [address] [place] [address] , [address], [place] [address] Nick Brady MD, [employer] CLIA: [id number] Thyroxine Free (free T4) 1.50 0.86-1.76 ng/dL P-Thyroid Antibody Panel (TA BS) Reviewed date:01/05/2025 01:01:14 PM Interpretation:Normal Performing Lab: Notes/Report: Test performed by [facility] [address] [place] [address] , [address], [place] [address] Nick Brady MD, [employer] CLIA: [id number] Thyroid Peroxidase Antibody 17 <9-34 IU/mL An [...] Interpretation:0.17 Performing Lab: Notes/Report: Test performed by [email or web address] [address] , [address], [place] [address] Nick Brady MD, [employer] CLIA: [id number] TSH 0.17 0.43-5.25 mU/L xultrasound : thyroid [...] days 11/15/2024 Active Vitamin Act ramakrishna Nystatin 280705 UNIT/GM 1 application Ex ternally Twice a day 12/29/2024 Active Problems Problem Type SNOMED Code ICD Code Onset Dates Problem Status W/U Status Risk Notes Problem Thyromegaly (3549365) Thyromegaly (E01.0) Active confirmed Vital Signs Blood pressure systolic 104 mm Hg 12/30/19 25 Blood pressure diastolic 70 mm Hg 025 Heart Rate 73 /min 12/29/2024 Height 61.5 in 12/29/2024 Weight 219.6 lbs 12/29/2024 BMI 40.82 kg/m2 12/29/2024 Encounters Encounter Location Date Provider Diagnosis [facility] [address] [place] [id number] 12/29/2024 Radha Awad Myalgia M79.10 ; Arthralgia, [...] Sig Start Date Stop Date Notes Nystatin 662088 UNIT/GM 1 application Ex ternally Twice a day 12/29/2024 Next Appt Details Follow Up: via phone to repo rt test results, Reason: Progress Notes * MOHAN GODINEZHIRALOB:1995 (29 yo F)Acc No.[id number]:12/29/2024 Progress Notes Patient: ISABELA HELMS Provider: FLORENCIA Palomino :1995 A ge:29 Y S ex:Female Date:12/29/2024 Address:[address] [place], [place] [phone] Pcp:Johnathan Duenas Subjective: * Chief Complaints: * [...] onsillectomy 1999, Bilateral Ankles 2018, Cholecystectomy 2016, [place] Teeth 2013, D & C 2019, Tubal [...] heumatoid Factor 12.0 <14.1 - IU/mL * Radah Awad 01/05/2025 1: 01:07 PM > see [...] PM > no auth required; CPT code 58627; faxed to [facility] Scheduling Radha Awad 01/05/2025 1:01:07 PM > see TE 7.?Rash? Start Nystatin Cream, 779630 UNIT/GM, 1 application, Externally, Twice a day, 60 grams, Refills 1. ? * Procedure Codes: 8 5025 CBC WITH AUTO DIFF, 36920 VENIPUNCT, ROUTINE*, 3074F SYST BP LT 130 MM HG, 3078F DIAST BP < 80 MM HG * Follow Up: v ia phone to report test results * Images: Billing Information: * Visit Code: 32961 Office Visit, Est Pt., Level 4. * Procedure Codes: 43352 CBC WITH AUTO DIFF. 96852 VENIPUNCT, ROUTINE*. 3074F SYST BP LT 130 MM HG. 3078F DIAST BP < 80 MM HG. * Electronic signature of FLORENCIA Galloway on 09/02/2025 at 12:02 PM EST Sign off status: Pending * Provider: FLORENCIA Palomino Date: 0 12/29/2024 Generated for Printi ng/Fawoodyg/eTransmitting on: 1 11/02/2024 12:02 PM EST History and Physical Notes * [...]
--- OUTSIDE RECORDS SUMMARY | 2025-01-26 09:15 | XMS_ITS ---
Author Organization [facility] Address [address] [facility] [address] [place] [id number] Care Team Providers Care Manager Foreign Name Role Phone Johnathan Duenas Primary Care Provider [phone] Allergies No Known Allergies Results Component Value Reference Range Notes P-T4 Free (thyroxine) Reviewed date:01/27/2025 02:33:57 PM Interpretation:2.1 Performing Lab: Notes/Report: Test performed by [facility] [address] , [facility], [place] [address] Nick Brady MD, Fireboat Operator CLIA: [id number] Thyroxine Free (free T4) 2.10 0.86-1.76 ng/dL P-Total T3 Reviewed date:01/27/2025 02:33:57 PM Interpretation:Normal Performing Lab: Notes/Report: Test performed by [facility] [address] [place] [address] [address], [place] [address] Nick Brady MD, Fireboat Operator CLIA: [id number] Total T3 1.98 0.80-2.00 ng/mL P-TSH Reviewed date:01/27/2025 02:33:57 PM Interpretation:0.01 Performing Lab: Notes/Report: Test performed by [facility] [address] , [address], [place] [address] Nick Brady MD, Fireboat Operator CLIA: [id number] TSH 0.01 0.43-5.25 mU/L REASON FOR VISIT discuss thyroid level being low Medications Medication SIG (Take, Route, Frequency, Duration) Notes Start Date End Date Status Vitamin Act ramakrishna Valtrex 1 GM 1 tablet Orally Thre e times a day; Duration: 7 days 11/15/2024 Active busPIRone HCl 10 MG 1 tablet Orally Twic e a day Active Vilazodone HCl 10 MG 1 tablet with food Orally Once a day; Duration: 30 day(s) Active Triamcinolone Acetonide 0.1 % 1 application Externally Two times a Week 01/26/2025 Active Vital Signs Blood pressure systolic 112 mm Hg 01/27/20 25 Blood pressure diastolic 70 mm Hg 025 Heart Rate 106 /min 01/26/2025 Height 61.5 in 01/26/2025 Weight 219.4 lbs 01/26/2025 BMI 40.78 kg/m2 01/26/2025 Encounters Encounter Location Date Provider Diagnosis [facility] [address] [place] [id number] 01/26/2025 Johnathan Duenas Low TSH level R79.89 and Rash R21 Assessments Encounter Date Diagnosis (ICD Code) Assessment Notes Treatment Notes Treatment Clinical Notes Section Notes 01/26/2025 Low TSH level (ICD-10 - R79.89) 01/26/2025 Rash (ICD-10 - R21) Plan Of Treatment Medication Medication Name Sig Start Date Stop Date Notes Triamcinolone Acetonide 0.1 % 1 applicat ion Externally Two times a Week 01/26/2025 Next Appt Details Follow Up: via phone to repo rt progress, Reason: Progress Notes * MOHAN GODINEZHIRALOB:1995 (29 yo F)Acc No.[id number]:01/26/2025 Progress Notes Patient: ISABELA HELMS Provider: Ramesh Duenas M.D. :1995 A ge:29 Y S ex:Female Date:01/26/2025 Address:[facility] [id number] Subjective: * Chief Complaints: * 1 . Discuss thyroid level being low. * HPI: E ndocrinology: 29 year old female presents with c/o Hyperthyroidism P t states she was advised to see PCP again for low tsh on 12/29. Pt states she has hair loss, fatigue, trouble sleeping at night, heart palpitations, constipation, tenderness in front of neck , dizziness, trouble swallowing. D ermatology: c/o rash P t complains of rash in bilateral axilla. Pt has been seen for this and was rx'd Nystatin but did not have any improvement. Pt states she thinks it could be psoriasis. She used topical hydrocortisone which has helped. * ROS: D ERMATOLOGY: no R bri. n o H david. G ASTROENTEROLOGY: no N ausea. n o V omiting. U ROLOGY: no D ifficulty urinating. n o B lood in urine. * 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: M edical History Verified. * Surgical History: T onsillectomy 1999, Bilateral Ankles 2018, Cholecystectomy 2016, [place] Teeth 2013, D & C 2019, Tubal Ligation 2024. * Hospitalization/Major Diagno stic Procedure: D enies Past Hospitalization. * Family History: F ather: alive, diagnosed [...] tablet Orally Three times a day , Discontinued Nystatin 776280 UNIT/GM Cream 1 application Externally Twice a day , Medication List reviewed and reconciled with the patient * Allergies: N .K.D.A. Objective: * Vitals: W t:219.4, Temp:98.0, BP:112/70, HR:106, Nurse:yocasta, Ht: 61.5, BMI:40.78. * Examination: E ndocrinology: General Appearance: N AD. T hyroid exam: no enlargement. H eart: R SR. L ungs: c lear to auscultation. N eurologic Exam: I ntact, gait normal. Assessment: * Assessment: 1. L ow TSH level - R79.89 (Primary) 2 . R bri - R21 Plan: * Treatment: Value Reference Range T hyroxine Free (free T4) 2.10 H 0.86-1.76 - ng/d L * Rachel, Liz 01/27/2025 02:33 :49 PM > See phone encounter ?LAB: P-Total T3 (Collection Date & Time - 01/26/2025 01:48 PM)?Normal* Value Reference Range T otal T3 1.98 0.80-2.00 - ng/mL * Liz Ramos 01/27/2025 02:33 :49 PM > See phone encounter ?LAB: P-TSH (Collection Date & Time - 01/26/2025 01:48 PM)?0.01* Value Reference Range T SH 0.01 L 0.43-5.25 - mU/L * Liz Ramos 01/27/2025 02:33 :49 PM > See phone encounter 2.?Rash? Start Triamcinolone Acetonide Cream, 0.1 %, 1 application, Externally, Two times a Week, 30 grams, Refills 0.?? * Procedure Codes: 3 074F SYST BP LT 130 MM HG, 3078F DIAST BP < 80 MM HG * Follow Up: v ia phone to report progress * Images: Billing Information: * Visit Code: 85979 Office Visit, Est Pt., Level 3. * Procedure Codes: 3074F SYST BP LT 130 MM HG. 3078F DIAST BP < 80 MM HG. * Electronic signature of Sharda Duenas MD on 09/02/2025 at 12:01 PM EST Sign off status: Pending * Provider: Ramesh Duenas M.D. Date: 0 01/26/2025 Generated for Reggie stone/Leslie/Stevesmitting on: 1 11/02/2024 12:01 PM EST History and Physical Notes * HPI (History of Present Illness) Category Sub-Category Detail Notes Category Not es Dermatology rash Pt complains of rash in bilateral axilla. Pt has been seen for this and was rx'd Nystatin but did not have any improvement. Pt states she thinks it could be psoriasis. She used topical hydrocortisone which has helped Endocrinology Hyperthyroidism Pt states she wa s advised to see PCP again for low tsh on 12/29. Pt states she has hair loss, fatigue, trouble sleeping at night, heart palpitations, constipation, tenderness in front of neck , dizziness, trouble swallowing Examination Category Sub-Category Detail Notes Category Not es Endocrinology Heart: RSR Lungs: clear to auscultatio n General Appearance: NAD Neurologic Exam: Intact, gait normal Thyroid exam: no enlargement
--- OUTSIDE RECORDS SUMMARY | 2025-02-10 06:00 | XMS_ITS ---
Author Organization [facility] Address [address] [place] [id number] Care Team Providers Care Ladle Cleaner Name Role Phone Johnathan Duenas Primary Care Provider Radha Awad Unavailable [phone] Allergies No Known Allergies Results Component Value [...] day; Duration: 30 day(s) Active Vital Signs Blood pressure systolic 100 mm Hg 02/11/20 25 Blood pressure diastolic 70 mm Hg 025 Heart Rate 75 /min 02/10/2025 Height 61.5 in 02/10/2025 Weight 218.6 lbs 02/10/2025 BMI 40.63 kg/m2 02/10/2025 Encounters Encounter Location Date Provider Diagnosis [facility] [address] [place] [id number] 02/10/2025 Radha Awad Acute otitis media, right [...] progress, Reason: Progress Notes * JOYCELYN GODINEZOB:1995 (29 yo F)Acc No.[id number]:02/10/2025 Progress Notes Patient: ISABELA HELMS Provider: FLORENCIA Palomino :1995 A ge:29 Y S ex:Female Date:02/10/2025 Address:[facility] Pcp:Johnathan Duenas Subjective: * Chief Complaints: * [...] onsillectomy 1999, Bilateral Ankles 2018, Cholecystectomy 2016, [place] Teeth 2013, D & C 2019, Tubal [...] STREP A ASSAY W/OPTIC, Modifiers: QW , [address]0350 CAPILLARY BLOOD DRAW, 60436 CBC WITH AUTO DIFF * Follow Up: v ia phone to report progress * Images: Billing Information: * Visit Code: 10836 Office Visit, Est Pt., Level 3. * Procedure Codes: 83001 STREP A ASSAY W/OPTIC. Modifiers: QW 83296 CAPILLARY BLOOD DRAW. 05835 CBC WITH AUTO DIFF. * Electronic signature of FLORENCIA Galloway on 09/02/2025 at 12:03 PM EST Sign off status: Pending * Provider: FLORENCIA Palomino Date: 0 02/10/2025 Generated for Reggie stone/Leslie/Bill on: 1 11/02/2024 12:03 PM EST History and Physical Notes * [...]
--- OUTSIDE RECORDS SUMMARY | 2025-02-18 09:00 | XMS_ITS ---
Author Organization [facility] Address [address] [facility] [address] [place] [id number] Care Team Providers Care Director Of Curriculum Name Role Phone Johnathan Duenas Primary Care Provider [phone] Allergies No Known Allergies REASON FOR VISIT diarrhea Medications Medication SIG (Take, Route, Frequency, Duration) Notes Start Date End Date Status Vilazodone HCl 10 MG 1 tablet with food Orally Once a day; Duration: 30 day(s) Active busPIRone HCl 10 MG 1 tablet Orally Twic e a day Active Triamcinolone Acetonide 0.1 % 1 applicat ion Externally Two times a Week 01/26/2025 Active Propylthiouracil 50 MG 1 tablet Orally T wi a day 02/15/2025 Active Multi Vitamin - 1 tablet Orally Once a day; Duration: 30 day(s) Active Problems Problem Type SNOMED Code ICD Code Onset Dates Problem Status W/U Status Risk Notes Problem Hyperthyroidism (58610872) Hyperthyroidism (E05.90) Active confirmed Vital Signs Blood pressure systolic 110 mm Hg 02/19/20 25 Blood pressure diastolic 70 mm Hg 025 Heart Rate 80 /min 02/18/2025 Height 61.5 in 02/18/2025 Weight 218.8 lbs 02/18/2025 BMI 40.67 kg/m2 02/18/2025 Encounters Encounter Location Date Provider Diagnosis [facility] [address] [place] [id number] 02/18/2025 Johnathan Duenas Acute diarrhea R19.7 and Hyperthyroidism E05.90 Assessments Encounter Date Diagnosis (ICD Code) Assessment Notes Treatment Notes Treatment Clinical Notes Section Notes 02/18/2025 Acute diarrhea (ICD-10 - R19.7) Patient will call if symptms do not continue to improve and resolve 02/18/2025 Hyperthyroidism (ICD-10 - E05.90) Plan Of Treatment Medication Medication Name Sig Start Date Stop Date Notes Propylthiouracil 50 MG 1 tablet Orally Twice a day 025 Treatment Notes Assessment Notes Acute diarrhea Patient will call if symptms do not continue to improve and resolve Next Appt Details Follow Up: 4 Weeks, Reason: Progress Notes * JOYCELYN GODINEZOB:1995 (29 yo F)Acc No.[id number]:02/18/2025 Progress Notes Patient: ISABELA HELMS Provider: Ramesh Duenas M.D. :1995 A ge:29 Y S ex:Female Date:02/18/2025 Address:[place], [id number] Subjective: * Chief Complaints: * 1 . Diarrhea. * HPI: G astroenterology: 29 year old female presents with c/o Diarrhea P t states she was recently on abx for ear infection and on day 5 or 6 she started with diarrhea. Pt states she has been off of abx for 3 days and it has improved. * ROS: C ARDIOLOGY: no D izziness. n o C hest pain. D ERMATOLOGY: no R bri. n o H david. U ROLOGY: no D ifficulty urinating. n o B lood in urine. * 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: M edical History Verified. * Surgical History: T onsillectomy 1999, Bilateral Ankles 2018, Cholecystectomy 2016, [place] Teeth 2013, D & C 2019, Tubal Ligation 2024. * Hospitalization/Major Diagno stic Procedure: D enies Past Hospitalization. * Family History: F ather: alive, diagnosed with Cancer. M other: , diagnosed with Cancer, Hypertension. 2 son(s) , 1 daughter(s) - healthy. . * 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: C URRENT TOBACCO USE: [...] Externally Two times a Week , Taking Propylthiouracil 50 MG Tablet 1 tablet Orally Twice a day , Discontinued Cefdinir 300 MG Capsule 1 cap(s) Orally Two times a day , Discontinued Fluconazole 150 MG Tablet 1 tablet Orally once daily , Discontinued Metoprolol Succinate 50 MG Capsule ER 24 Hour Sprinkle 1 capsule Orally Once a day , Medication List reviewed and reconciled with the patient * Allergies: N .K.D.A. Objective: * Vitals: W t:218.8, Temp:98.0, BP:110/70, HR:80, Nurse:yocasta, Ht: 61.5, BMI:40.67. * Examination: G eneral Examination: General Appearance: N AD, conversant. H eart: R SR.?Lungs: c lear to auscultation. Assessment: * Assessment: 1. A cute diarrhea - R19.7 (Primary) 2 . H yperthyroidism - E05.90 ? Plan: * Treatment: 2. H yperthyroidism Continue Propylthiouracil Tablet, 50 MG, 1 tablet, Orally, Twice a day. * Procedure Codes: 3 074F SYST BP LT 130 MM HG, 3078F DIAST BP < 80 MM HG * Follow Up: 4 Weeks * Images: Billing Information: * Visit Code: 55068 Office Visit, Est Pt., Level 3. * Procedure Codes: 3074F SYST BP LT 130 MM HG. 3078F DIAST BP < 80 MM HG. * Electronic signature of Sharda Duenas MD on 09/02/2025 at 12:02 PM EST Sign off status: Pending * Provider: Ramesh Duenas M.D. Date: 0 02/18/2025 Generated for Reggie stone/Leslie/Bill on: 11/02/2024 12:02 PM EST History and Physical Notes * HPI (History of Present Illness) Category Sub-Category Detail Notes Category Not es Gastroenterology Diarrhea Pt states she w as recently on abx for ear infection and on day 5 or 6 she started with diarrhea. Pt states she has been off of abx for 3 days and it has improved Examination Category Sub-Category Detail Notes Category Not es General Examination Heart: RSR Lungs: clear to auscultatio n General Appearance: NAD, conversant
--- OUTSIDE RECORDS SUMMARY | 2025-03-18 09:30 | XMS_ITS ---
Author Organization [facility] Address [address] [place] [phone] Care Team Providers Care Vapor Coater Name Role Phone Johnathan Duenas Primary Care Provider REASON FOR VISIT fu blood work for thyroid Encounters Encounter Location Date Provider Diagnosis [facility] [address] [place] [phone] 03/18/2025 Johnatahn Duenas Plan Of Treatment No Information Progress Notes * MOHAN GODINEZHIRALOB:1995 (29 yo F)Acc No.[id number]:03/18/2025 Patient: ISABELA HELMS Provider: Ramesh Duenas M.D. :1995 A ge:29 Y S ex:Female Date:03/18/2025 Address:[address] [place], [place] Subjective: * Chief Complaints: * 1 . Fu blood work for thyroid. * 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: Objective: * Vitals: Assessment: Plan: * Treatment: * Images: Billing Information: * Visit Code: * Procedure Codes: * Electronic signature of Sharda Duenas MD on 09/02/2025 at 12:03 PM EST Sign off status: Pending * Provider: Ramesh Duenas M.D. Date: 03/18/2025 Generated for Reggie stone/Leslie/Bill on: 11/02/2024 12:03 PM EST
--- OUTSIDE RECORDS SUMMARY | 2025-05-11 10:00 | XMS_ITS ---
Author Organization [facility] Address [address] [facility] [address] [place] [id number] Care Team Providers Care Education Liaison Name Role Phone Johnathan Duenas Primary Care Provider [phone] Allergies No Known Allergies Results Component Value [...] Interpretation:Normal Performing Lab: Notes/Report: Test performed by [facility] [address] [place], [place] [address] [place] , [address], [place] [address] Nick Brady MD, Continuous Improvement Engineer CLIA: [id number] Amylase 42 28-100 U/L P-Antistreptolysin O AB Reviewed date:05/13/2025 09:49:59 AM Interpretation:Normal Performing Lab: Notes/Report: Test performed by [facility] [address] [place], [place] [address] [place] , [address], [place] [address] Nick Brady MD, Continuous Improvement Engineer CLIA: [id number] Antistreptolysin O AB 175.0 <20-200.0 IU/mL P-Comprehensive Metabolic Pa helio (CMP) Reviewed date:05/13/2025 09:49:59 AM Interpretation:bili 1.4 Performing Lab: Notes/Report: Test performed by [facility] [address] [place] [address] , [place] [address] Nick Brady MD, Continuous Improvement Engineer CLIA: [id number] Sodium 137 135-145 mmol/L Potassium 4.1 3.5-5.3 [...] Interpretation:Reactive Performing Lab: Notes/Report: Test performed by [facility] [address] [place] [address] [place] [address] Nick Brady MD, Continuous Improvement Engineer CLIA: [id number] Cytomegalovirus (CMV) Antibody, IgG Reactive Non-Reactive This [...] >8 Performing Lab: Notes/Report: Test performed by [facility] [address] [place] [address] , [address], [place] [address] Nick Brady MD, Continuous Improvement Engineer CLIA: [id number] Deidre Dewey Virus (EBV) VCA Antibodies IgG >8.0 <0.9 AI Deidre Dewey Virus (EBV) VCA Antibodies IgM 0.3 <0.9 AI P-Sed Rate (ESR) Reviewed date:05/13/2025 09:50:00 AM Interpretation:Normal Performing Lab: Notes/Report: Test performed by [facility] [address] , [address], [place] [address] Nick Brady MD, Continuous Improvement Engineer CLIA: [id number] Erythrocyte Sedimentation Ra te (ESR), Automated 18 <26 mm/hr P-Lipase Reviewed date:05/13/2025 09:50:00 AM Interpretation:Normal Performing Lab: Notes/Report: Test performed by [facility] [address] [place] [address] , [address], [place] [address] Nick Brady MD, Continuous Improvement Engineer CLIA: [id number] Lipase 19.8 13.0-60.0 U/L REASON FOR VISIT 6 months Medications Medication SIG (Take, Route, Fr equency, Duration) Notes Start Date End Date Status Multi Vitamin - 1 tablet Orally Once a day; Duration: 30 day(s) Active Nystatin 484645 UNIT/GM 1 application Ex ternally Twice a [...] Status W/U Status Risk Notes Problem Thrombocytopenia (602569537) Thrombocytopenia (D69.6) Active confirmed Vital Signs Blood pressure systolic 110 mm Hg 05/11/20 25 Blood pressure diastolic 70 mm Hg 025 Heart Rate 80 /min 05/11/2025 Height 61.5 in 05/11/2025 Weight 221 lbs 05/11/2025 BMI 41.08 kg/m2 05/11/2025 Encounters Encounter Location Date Provider Diagnosis [facility] [address] [place], [place] [id number] 05/11/2025 Johnathan Duenas Fever, unspecified R 50.9 [...] Sig Start Date Stop Date Notes Nystatin 609304 UNIT/GM 1 application Ex ternally Twice a day 05/11/2025 Omeprazole 40 MG 1 capsule 1/2 to 1 h our before morning meal Orally Once a day; Duration: 30 days 05/11/2025 Next Appt Details Follow Up: via phone to repo rt progress, Reason: Progress Notes * JOYCELYN GODINEZOB:1995 (29 yo F)Acc No.[id number]:05/11/2025 Progress Notes Patient: MOHAN HELMSNE Provider: Ramesh Duenas M.D. :1995 A ge:29 Y S ex:Female Date:05/11/2025 Address:[place], [id number] Subjective: * Chief Complaints: * 1 . [...] pain. Pt states [place] [facility] [place] and tested negative for strep throat. [...] onsillectomy 1999, Bilateral Ankles 2018, Cholecystectomy 2016, [place] Teeth 2013, D & C 2019, Tubal [...] phone encounter 6.?Skin rash? Start Nystatin Cream, 503012 UNIT/GM, 1 application, Externally, Twice a day, 30 grams, Refills 1. ? * Procedure Codes: 8 5025 CBC WITH AUTO DIFF, 92569 STREP A ASSAY W/OPTIC, Modifiers: QW , 1036F TOBACCO NON-USER, 3074F SYST BP LT 130 MM HG, 3078F DIAST BP < 80 MM HG * Follow Up: v ia phone to report progress * Images: Billing Information: * Visit Code: 13142 Office Visit, Est Pt., Level 4. * Procedure Codes: 03925 CBC WITH AUTO DIFF. 85024 STREP A ASSAY W/OPTIC. Modifiers: QW 1036F TOBACCO NON-USER. 3074F SYST BP LT 130 MM HG. 3078F DIAST BP < 80 MM HG. * Electronic signature of Sharda Duenas MD on 09/02/2025 at 12:02 PM EST Sign off status: Pending * Provider: Ramesh Duenas M.D. Date: 0 05/11/2025 Generated for Printi ng/Fawoodyg/eTransmitting on: 1 11/02/2024 12:02 PM EST History and Physical Notes * HPI (History of Present Illness) Category Sub-Category Detail Notes Category Not es ENT/respiratory sore throat Pt complains of sore throat for over a month. Associated with fever, nausea and stomach pain. Pt states she did go [place] [facility] [place] and tested negative for strep throat. [...]
--- OUTSIDE RECORDS SUMMARY | 2025-05-31 10:45 | XMS_ITS ---
Author Organization [facility] Address [address] [facility] [address] [place] [phone] Care Team Providers Care Rent And Housing Investigator Name Role Phone Johnathan Duenas Primary Care [...] Provider Diagnosis [place] [address] [facility] [address] [place] [phone] 05/31/2025 Johnathan Duenas Thrombocytopenia D69 .6 Assessments Encounter Date Diagnosis (ICD Code) Assessment Notes Treatment Notes Treatment Clinical Notes Section Notes 05/31/2025 Thrombocytopenia (ICD-10 - D69.6) Plan Of Treatment No Information Progress Notes * GRETCHENMOHAN SOTOMAYORHIRALOB:1995 (29 yo F)Acc No.[id number]:05/31/2025 Patient: ISABELA HELMS Provider: Ramesh Duenas M.D. :1995 A ge:29 Y S ex:Female Date:05/31/2025 Address:[address] [id number] Subjective: * Chief Complaints: * 1 . [...] Procedure Codes: 3 6416 CAPILLARY BLOOD DRAW, 64575 CBC WITH AUTO DIFF * Images: Billing Information: * Visit Code: * Procedure Codes: 29004 CAPILLARY BLOOD DRAW. 15172 CBC WITH AUTO DIFF. * Electronic signature of Sharda Duenas MD on 09/02/2025 at 12:03 PM EST Sign off status: Pending * Provider: Ramesh Duenas M.D. Date: 0 05/31/2025 Generated for Reggie stone/Leslie/Bill on: 11/02/2024 12:03 PM EST
--- OUTSIDE RECORDS SUMMARY | 2025-08-17 10:25 | XMS_ITS ---
Author Organization [facility] Address [address] [facility] [address] [place] [id number] Care Team Providers Care Vacuum Extractor Operator Name Role Phone Johnathan Duenas Primary Care Provider Results Component Value Reference Range Notes P-T4 Free (thyroxine) Reviewed date:08/18/2025 02:54:03 PM Interpretation:Normal Performing Lab: Notes/Report: Test performed by [employer] [address] [place] [address] , [facility] [address], [place] [address] Nick Brady MD, Center Machine Operator CLIA: [id number] Thyroxine Free (free T4) 1.09 0.86-1.76 ng/dL P-Total T3 Reviewed date:08/18/2025 02:54:12 PM Interpretation:Normal Performing Lab: Notes/Report: Test performed by [employer] [address] [place] [address] , [address], [place] [address] Nick Brady MD, Center Machine Operator CLIA: [id number] Total T3 1.31 0.80-2.00 ng/mL P-TSH Reviewed date:08/18/2025 02:54:22 PM Interpretation:Normal Performing Lab: Notes/Report: Test performed by [employer] [address] , [address], [place] [address] Nick Brady MD, Center Machine Operator CLIA: [id number] TSH 2.59 0.43-5.25 mU/L REASON FOR VISIT labs Medications Medication SIG (Take, Route, Fr equency, Duration) Notes Start Date End Date Status Ketoconazole 2 % 1 application Darklight Inspector ally Once a day 05/20/2025 Active Ondansetron HCl 4 MG 1 tablet Orally 3 times a day As needed 05/13/2025 Active Omeprazole 40 MG 1 capsule 1/2 to 1 h our before morning meal Orally Once a day; Duration: 30 days Active Diflucan 100 MG 1 tablet Orally shobha y; Duration: 14 days 05/26/2025 Active Ubrelvy 100 MG 1 tablet as needed, may take second dose at least 2 hours after first dose up to 2 tablets per day as needed Orally Once a day Active busPIRone HCl 10 MG 1 tablet Orally Twice a day Active Multi Vitamin - 1 tablet Orally Once a day; Duration: 30 day(s) Active traZODone HCl 50 MG 1 tablet at bedtime as needed Orally Once a day Active Encounters Encounter Location Date Provider Diagnosis [facility] [address] [place] [id number] 08/17/2025 Johnathan Duenas Hyperthyroidism E05. 90 Assessments Encounter Date Diagnosis (ICD Code) Assessment Notes Treatment Notes Treatment Clinical Notes Section Notes 08/17/2025 Hyperthyroidism (ICD-10 - E05.90) Plan Of Treatment No Information Progress Notes * JOYCELYN GODINEZOB:1995 (29 yo F)Acc No.[id number]:08/17/2025 Patient: ISABELA HELMS Provider: Ramesh Duenas M.D. :1995 A ge:29 Y S ex:Female Date:08/17/2025 Address:[address] [place], [place] [id number] Subjective: * Chief Complaints: * 1 . Labs. * 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: * Medications: T aking traZODone HCl 50 MG Tablet 1 tablet at bedtime as needed Orally Once a day , Taking Multi Vitamin - Tablet 1 tablet Orally Once a day , Taking busPIRone HCl 10 MG Tablet 1 tablet Orally Twice a day , Taking Ondansetron HCl 4 MG Tablet 1 tablet Orally 3 times a day As needed, Taking Ketoconazole 2 % Cream 1 application Externally Once a day , Taking Ubrelvy 100 MG Tablet 1 tablet as needed, may take second dose at least 2 hours after first dose up to 2 tablets per day as needed Orally Once a day , Taking Diflucan 100 MG Tablet 1 tablet Orally daily , Taking Omeprazole 40 MG Capsule Delayed Release 1 capsule 1/2 to 1 hour before morning meal Orally Once a day , Medication List reviewed and reconciled with the patient Objective: * Vitals: Assessment: * Assessment: 1. H yperthyroidism - E05.90 Plan: * Treatment: Value Reference Range T hyroxine Free (free T4) 1.09 0.86-1.76 - ng/d L * Heidi Gifford 08/18/2025 02: 54:00 PM EDT >pt informed ?LAB: P-Total T3 (Collection Date & Time - 08/17/2025 02:25 PM)?Normal* Value Reference Range T otal T3 1.31 0.80-2.00 - ng/mL * Heidi Gifford 08/18/2025 02: 54:09 PM EDT >pt informed ?LAB: P-TSH (Collection Date & Time - 08/17/2025 02:25 PM)?Normal* Value Reference Range T SH 2.59 0.43-5.25 - mU/L * Heidi Gifford 08/18/2025 02: 54:17 PM EDT >pt informed * Images: Billing Information: * Visit Code: * Procedure Codes: * Electronic signature of Sharda Duenas MD on 09/02/2025 at 12:01 PM EST Sign off status: Pending * Provider: Ramesh Duenas M.D. Date: Generated for Reggie stone/Leslie/Morrisitting on: 11/02/2024 12:01 PM EST
--- OUTSIDE RECORDS SUMMARY | 2025-09-02 12:02 | XMS_ITS | Encounter Summary ---
[facility] Organization [facility] Address [address] [place] [address] Care Team Providers Care Child Welfare Manager Name Role Phone Provider, No Known Primary Care Provider Unavail able Reason for Visit * Reason Onset Date Comments Med Refill 10/27/2022 Encounter Details Date Type Department Care Team (Late st Contact Info) Description 10/27/2022 Refill [facility] [address] [place] [address] Henrique Barney MD [address] [facility] [address] [place] [address] 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 Tobacco Use Types Packs/Day Years [...] Date Recorded Retired Total Score 14 07/16/2021 [facility] [place] of Occupat ional Health - Occupational Stress [...] things needed for daily living? No 11/13/2020 Taylor Depression Scale Answer Date Recorded Taylor Depression Scale Total 5 06/05/2021 The thought [...] on filedocumented in this encounter Care Teams Child Welfare Manager Relationship Specialty Start Date End Date Provider, No Known [facility] [place] [address] PCP - General 12/04/20 documented as of this encounter
--- OUTSIDE RECORDS SUMMARY | 2025-09-02 12:02 | XMS_ITS | Data Portability ---
Author Organization [place] - [facility] [place] & KARLA Martinez ADMIN Address [address] [place] [address] Care Team Providers Care Stope Miner Name Role Phone CASSANDRA RUIZ Primary Care [...] Telehealth visit is being conducted from [address] [place] [address]. This was a real-time clinical encounter over [[email or web address] ]. Consent was obtained to engage in [...] up in 2 weeks to reassess pain. [email or web address] Not available 08/26/2022 15:22:52 12/30/2022 12/30/2022 Mrs. [...] have further discussion regarding SI Joint injection. [email or web address] Not available 12/30/2022 17:02:39 Plan of Treatment Reminders Order Date Submit Date Provider Last Modified By Organization Details Last Modified Time Details Appointments None recorded. Lab CBC w/ auto diff 2022 023 [email or web address] [facility] (Lab Registration) , [address] [place] [address] [place], [address], 3 16:03:52 Referral None recorded. Procedures upper endoscopy procedure (EGD) (PROC) 2022 023 [email or web address] 4 Not available 3 08:07:22 upper endoscopy procedure (EGD) (PROC) 2022 023 [email or web address] 4 Not available 3 08:07:23 colonoscopy procedure (PROC) 2022 023 [email or web address] 4 Not available 3 16:11:29 injection, trigger point (PROC) - 45457, 15859 bilateral paracervica l muscles including trapezius and levator scapulae 2022 023 [email or web address] 7 Not available 3 16:28:35 epidural steroid injection, lumbar (PROC) - 06175 lei l5-s1 2021 022 [email or web address] Not available 11:45:00 Surgeries None recorded. Imaging XR, abdomen, 1 view - Rule out stool burden. [address] ([facility]), [address] [place] [address] [place], [address], 3 09:13:57 Medication Orders pantoprazol e 40 mg tablet,mckinley yed release 2022 023 [facility], [address], [address], 3 11:46:52 Miralax 17 gram/dose oral powder [address] [facility], [address], [address], 3 16:03:52 Dulcolax (bisacodyl) 5 mg tablet,mckinley yed release [address] [facility], [address], [address], 3 16:03:52 Patient TargetsNo targets recorded. Patient Instructions Encounter Date Encounter Id Patient Instructions Last Modified By Organization Details Last Modified Time 08/05/2022 [id number] I have discussed in great detail our [...] __ __ __ __ __ _ LATHA: [id number] I have reviewed patient's LATHA report prior to prescribing Schedule II, III, and IV medications that require review by law. [email or web address] Not available 08/06/2022 14:59:07 08/26/2022 [id number] I have discussed in great detail our [...] __ __ __ __ __ _ LATHA: [id number] I have reviewed patient's LATHA report prior to prescribing Schedule II, III, and IV medications that require review by law. [email or web address] Not available 08/26/2022 15:22:44 12/30/2022 [id number] I have discussed in great detail our [...] __ __ __ __ __ _ LATHA: [id number] I have reviewed patient's LATHA report prior to prescribing Schedule II, III, and IV medications that require review by law. [email or web address] Not available 12/30/2022 17:00:21 Reason for Referral None Reported. Results Created Date Observation Date Name Description Value Unit Range Abnormal Flag Note LastModifiedBy Organization Detail LastModifiedTime 03/19/2003/19/2023 CBC AUTO W DIFF WBC 6.0 10 4.5-11 .5 Not Available [facility] (Lab Registration) [address], [place], [address], 03/19/2023 12:16:40 03/19/2003/19/2023 CBC AUTO W DIFF RBC 4.19 10 4.25-5 .57 low Not Available [facility] (Lab Registration) [address] [place], [address], 03/19/2023 12:16:40 03/19/20 23 03/19/2023 CBC AUTO W DIFF HGB 12.4 g/dL 12.0-1 5.7 Not Available [facility] (Lab Registration) [address] [place], [address], 03/19/2023 12:16:40 03/19/20 23 03/19/2023 CBC AUTO W DIFF HCT 37.1 % 36.0-4 7.0 Not Available [facility] (Lab Registration) [address] [place], [address], 03/19/2023 12:16:40 03/19/20 23 03/19/2023 CBC AUTO W DIFF MCV 88.5 fL 80-95 Not Available [facility] (Lab Registration) [address] [place], [address], 03/19/2023 12:16:40 03/19/20 23 03/19/2023 CBC AUTO W DIFF MCH 29.6 pg 27.0-3 4.0 Not Available [facility] (Lab Registration) [address] [place], [address], 03/19/2023 12:16:40 03/19/20 23 03/19/2023 CBC AUTO W DIFF MCHC 33.4 g/dL 32.0-3 6.0 Not Available [facility] (Lab Registration) [address] [place], [address], 03/19/2023 12:16:40 03/19/20 23 03/19/2023 CBC AUTO W DIFF platelet count 205 10 150-45 0 Not Available [facility] (Lab Registration) [address] [place], [address], 03/19/2023 12:16:40 03/19/20 23 03/19/2023 CBC AUTO W DIFF RDW 14.4 % 12.3-1 5.1 Not Available [facility] (Lab Registration) [address] [place], [address], 03/19/2023 12:16:40 03/19/20 23 03/19/2023 CBC AUTO W DIFF MPV 10.0 fL 7.4-10 .4 Not Available [facility] (Lab Registration) [address] [place], [address], 03/19/2023 12:16:40 03/19/20 23 03/19/2023 CBC AUTO W DIFF granulocyte% 61.9 % 40-75 Not Available [facility] (Lab Registration) [address] [place], [address], 03/19/2023 12:16:40 03/19/20 23 03/19/2023 CBC AUTO W DIFF lymphocyte% 29.8 % 15-57 Not Available [facility] (Lab Registration) [address] [place], [address], 03/19/2023 12:16:40 03/19/20 23 03/19/2023 CBC AUTO W DIFF monocyte% 5.7 % 4.0-12 .0 Not Available [facility] (Lab Registration) [address] [place], [address], 03/19/2023 12:16:40 03/19/20 23 03/19/2023 CBC AUTO W DIFF eosinophil% 2.2 % 0.0-4. 0 Not Available [facility] (Lab Registration) [address] [place], [address], 03/19/2023 12:16:40 03/19/20 23 03/19/2023 CBC AUTO W DIFF basophil% 0.2 % 0.0-1. 0 Not Available [facility] (Lab Registration) [address] [place], [address], 03/19/2023 12:16:40 03/19/20 23 03/19/2023 CBC AUTO W DIFF immature granulocytes % 0.2 % 0.0-0. 8 Not Available [facility] (Lab Registration) [address], [place], [address], 03/19/2023 12:16:40 03/19/20 23 03/19/2023 CBC AUTO W DIFF granulocyte# 3.72 10 Not Available [facility] (Lab Registration) [address] [place], [address], 03/19/2023 12:16:40 03/19/20 23 03/19/2023 CBC AUTO W DIFF lymphocyte# 1.79 10 Not Available [facility] (Lab Registration) [address] [place], [address], 03/19/2023 12:16:40 03/19/20 23 03/19/2023 CBC AUTO W DIFF monocyte# 0.34 10 Not Available [facility] (Lab Registration) [address] [place], [address], 03/19/2023 12:16:40 03/19/20 23 03/19/2023 CBC AUTO W DIFF eosinophil# 0.13 10 Not Available [facility] (Lab Registration) [address] [place], [address], 03/19/2023 12:16:40 03/19/20 23 03/19/2023 CBC AUTO W DIFF basophil# 0.01 10 Not Available [facility] (Lab Registration) [address] [place], [address], 03/19/2023 12:16:40 03/19/20 23 03/19/2023 CBC AUTO W DIFF immature granulocytes # 0.01 10 Not Available [facility] (Lab Registration) [address] [place], [address], 03/19/2023 12:16:40 03/19/20 23 03/19/2023 CBC AUTO W DIFF manual differential NO Not Available [facility] (Lab Registration) [address] [place], [address], 03/19/2023 12:16:40 03/19/20 23 03/19/2023 CBC AUTO W DIFF note Unles s other perez noted testi ng perfo rmed at: [facility] [address] [place] [address] [phone] Ayden brady MD CLIA: [id number] Not Available [facility] (Lab Registration) [address] [place], [address], 03/19/2023 12:16:40 04/02/20 23 04/02/2023 URINE PREGN MY TEST urine test NEGATI VE negati ve Not Available [facility] (Lab Registration) [address] [place], [address], 04/02/2023 11:07:40 04/02/20 23 04/02/2023 URINE PREGN MY TEST internal control PASS PASS Not Available [facility] (Lab Registration) [address] [place], [address], 04/02/2023 11:07:40 04/02/20 23 04/02/2023 URINE PREGN MY TEST note Unles s other perez noted testi ng perfo rmed at: [facility] [address] [place] [address] [phone] Ayden brady MD CLIA: [id number] Not Available [facility] (Lab Registration) [address] [place], [address], 04/02/2023 11:07:40 05/14/20 23 05/14/2023 XR, abdom en, 1 view No observ ation record ed. [email or web address] [facility] (Radiology) [address] [place], [address], 05/16/2023 13:55:43 05/14/20 23 05/14/2023 XR, abdom en, 1 view [facility] [address] [facility] [place] [address] Phone: Fax: Name: GULSHAN GODINEZ Exam Date: : 1994 Age 27 Gender : F Access ion: [id number] Physic santiago: MEMO AHMADI Facili ty: [facility] Facili ty HSV: Outpat ient Exam: ABD [...] you for referr ing GULSHAN GODINEZ to [facility] Hospit al. Legall y authen ticate d by POPE CONSUELO Kern DO 05-14 15:53: 44 CC'ed Logic: Orderi ng Provid er: KEATON Ortega CC Provid er: NICHOL ROA Attend ing Provid er: KEATON Ortega Referr ing Provid er: KEATON Ortega Admitt ing Provid er: KEATON Ortega [facility] (Radiology) [address] [place] [address] [place], [address], 05/16/2023 13:55:43 Result Notes Documentation Provider Name and Address Organization Details Recorded Time Xr, Abdomen, 1 View : [address] [place] [address] Name: ISABELA GODINEZ Exam Date: 05/14/2023 : 1995 Age 27 Gender: F Physician: NOEMI AHMADI Facility: [facility] Facility HSV: Outpatient Exam: ABD KUB 1V [...] Thank you for referring ISABELA GODINEZ to [facility]. Legally authenticated by POPE CONSUELO Kern [...] Recorded Time Spinal stenosis of lumbar region 96518914 Active 2021 Shakira Vallecillo null, [place] - [facility] [place] & [place] 2 14:55:03 Lumbar discogenic pain 418554536 Active 2021 Shakira Vallecillo null, [place] [facility] [place] & [place] 2 14:55:22 Lumbar radiculopathy 364057560 Active 2021 Shakira Vallecillo null, [place] [facility] [place] & [place] 2 14:55:26 Ligamentous strain 706045937 Active 2021 Shakira jacobsen, [place] [facility] [place] & [place] 2 14:55:50 Scoliosis deformity of spine 425144603 Active 2021 Shakira Vallecillo [place], [place] [facility] [place] & [place] 2 14:56:39 Radicular pain 61823171 Active 2021 Shakira Vallecillo null, [place] [facility] [place] 2 14:56:47 Myofascial pain 310275323 Active 2021 Shakira Vallecillo null, [place] [facility] [place] 2 14:56:55 Spinal stenosis in cervical region 17218629 Active 2021 Shakira Vallecillo null, [place] [facility] [place] 2 14:57:44 Cervical radiculopathy 48313430 Active 2021 Shakira Vallecillo null, [place] [facility] [place] 2 14:58:04 Neck pain 99582940 Active 2021 Shakira Vallecillo null, [place] [facility] [place] 2 14:58:15 Brachial (cervical) neuritis 446811764 Active 2021 Shakira Vallecillo null, [place] [facility] [place] 2 14:58:21 Chronic idiopathic constipation 96960211 Active 2022 Noemi Ahmadi NP [address], [address], [place], [address], [place] [facility] [place] & [place] 3 11:46:46 Gastro-esophag eal reflux disease with esophagitis 276353323 Active 2022 Noemi Ahmadi NP [address], [address], [place], [address], [place] [facility] [place] & [place] 3 14:44:37 Left lower quadrant pain 572042336 Active 2022 Noemi Ahmdai NP [address], [address], [place], [address], [place] [facility] [place] & [place] 14:44:37 Problem Notes None recorded. Procedures Surgical History Date Name Laterality Status Provider Name and Address Organization Details Recorded Time 04/02/20 EGD/Endoscopy completed [facility] [place] [facility] & [place] 05/14/2023 13:48:42 04/02/20 23 Colonoscopy completed [facility] [place] [facility] & [place] 05/14/2023 13:49:07 10/27/19 17 cholecystectomy completed stephanie salgueroaft [place] [facility] & [place] 08/05/2022 12:46:08 10/27/19 tonsillectomy and adenoidectomy completed stephanie hola [place] [facility] & [place] 08/05/2022 12:46:26 extraction of wisdom tooth completed [facility] [place] [facility] & [place] 05/14/2023 13:48:14 Dilation and Curettage completed [facility] [place] [facility] & [place] 05/14/2023 13:48:57 Imaging Results None recorded. Procedure [...] Updated DateTime 3 154.94 cm 37.2 kg/m2 41324.7 g 98 [degF] 98 % 98 % 69 /min Chiquita [facility] & [place] 3 10:56:39 Date Recorded Body height Body mass index (BMI) Body weight Body temperature Oxygen saturation Oxygen saturation in Arterial blood by Pulse oximetry Heart rate Provider Name and Address Organization Details Last Updated DateTime 3 154.94 cm 37.2 kg/m2 04965.7 g 97.4 [degF] 99 % 99 % 86 /min [facility] & [place] 3 13:50:07 Date Recorded Body height Body mass index (BMI) Body weight Body temperature Oxygen saturation Oxygen saturation in Arterial blood by Pulse oximetry Heart rate Respiratory rate Systolic And Diastolic Provider Name and Address Organization Details Last Updated DateTime 2 154.94 cm 37.4 kg/m2 95033.0 1 g 96.6 [degF] 99 % 99 % 63 /min 16 /min 121/85 mm[Hg] stephanie simental [facility] & [place] 2 10:22:56 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 None recorded. Functional [...] ICD10 Code Diagnosis IMO Codes Diagnosis Note [id number] Oscar Bowman MD [facility] [address] [place] [address] [place] [address] 08/05/2022 10:00:05 08/05/2022 10:46:52 Lumbar radiculopathy 532483295 M54.16 Spinal nishant nosis of lumbar region 77258903 M99.53 Lumbar dis cogenic pain 986752012 M51.26 Ligamentous strain 41686 6003 R29.898 Myofascial pain 34632119 9 M79.10 Spinal nishant nosis in cervical region 67810964 M99.51 Cervical radiculopathy 75779659 M54.12 005197 CHRISTINE LOOMIS PA-C [facility] [address] [place] [address] 08/26/2022 10:09:15 08/26/2022 16:06:28 Lumbar radiculopathy 078767244 M54.16 Spinal nishant nosis of lumbar region 37057759 M99.53 M48.061 Lumbar dis cogenic pain 148143628 M51.26 Ligamentous strain 72130 6003 R29.898 Myofascial pain 27213088 9 M79.10 Spinal nishant nosis in cervical region 74843749 M99.51 M48.02 Cervical radiculopathy 42846671 M54.12 [id number] Oscar Bowman MD [facility] [address] [place] [address] 12/30/2022 13:34:40 12/30/2022 14:53:00 Lumbar radiculopathy 152757900 M54.16 Spinal nishant nosis of lumbar region 10110931 M99.53 M48.061 Lumbar dis cogenic pain 414937690 M51.26 Ligamentous strain 79535 6003 R29.898 Myofascial pain 08487391 9 M79.10 Spinal nishant nosis in cervical region 44613799 M99.51 M48.02 Cervical radiculopathy 89641858 M54.12 Spinal enthesopathy 1031 7009 M46.03 000155 Noemi Ahmadi NP [facility] [address] [place] [address] 03/19/2023 10:46:42 03/19/2023 12:27:10 Hematochezia 666322009 K92.1 Of her 5 year history of episodes of hematochez ia off and on. Most recent episode 3 weeks ago, large amount which lasted a 5-6 days. Plan for CBC today. Recommend colonoscop y to evaluate for internal hemorrhoid s, polyps, other. Chronic id iopathic constipation 19287515 K59.04 Failed treatment with MiraLax, fiber, OTC laxatives. Recommend trial of Linzess 72 mcg and 145 mcg, samples 8 days each provided to patient clinic today. Will send prescripti on based on response to sample medication . Gastro-eso phageal reflux disease with esophagitis 649856214 K21.00 Three month history increased GERD symptoms. Failed treatment Pepcid. Recommend Protonix 40 mg p.o. daily for treatment. Recommend EGD to evaluate for esophagiti s, hiatal hernia, H pylori, other. Nausea 523029109 R11.0 History of cholecyste ctomy. Plan for EGD to evaluate for H pylori, gastritis, PUD. [id number] Noemi Ahmadi NP [facility] [address] [place] [address] 05/14/2023 13:27:23 05/14/2023 14:48:06 Gastro-esophageal reflux disease with esophagitis 389132737 K21.00 reflux esophagiti s confirmed on pathology 04/03/2023 . Symptoms remain well controlled with use of Pantoprazo le at this time. Recommend continue reflux precaution s. Left lower quadrant pain 377216083 R10.32 Colonoscop y with negative random colon biopsies 04/02/23. Recommend xray abd KUB to r/o stool burden. She has been evaluated by Wheel Loader Operator and taisha cano laproscopi c evaluation for endometrio sis. Chronic id iopathic constipation 04937736 K59.04 Improved with use of Linzess 72 [...] Name 05/15/2024 1 [employer] (POS) Garrett Godinez [id number] Isabela Godinez 05/15/2024 1 [employer] (POS) Garrett Maldonadoatt [id number] Isabela Du Godinez Notes Date Note Type [...] MRIs of lumbar/cervical spine Oscar Bowman MD [address] [place] [address], [address], [facility] 08/07/2022 09:42:01 2 text/html ROS as noted [...] MRIs of lumbar/cervical spine CHRISTINE LOOMIS PA-C [address] [facility], [place], [address], [facility] & [place] 08/26/2022 15:23:38 3 text/html ROS as noted [...] of lumbar/cervical spine Oscar Bowman MD [address], [place], [address], [facility] 12/31/2022 13:22:17 3 text/html ROS as noted [...] [address] [facility], [address], [place], [address], [facility] 03/19/2023 11:47:36 3 text/html ROS as noted [...] abdominal pain. She has been evaluated by Wheel Loader Operator, they are considering laproscopic evaluation for endometriosis. Noemi Ahmadi NP [address] [place] [address], [address], [place], [address], [facility] - [place] - [place] & [place] 05/14/2023 14:45:24 OBGyn Episode No OBEpisode recorded.
--- OUTSIDE RECORDS SUMMARY | 2025-09-02 12:02 | XMS_ITS | Clinical Summary ---
Author Organization Healthcare [place] [address] Care Team Providers Care Shop Laborer Name Role Phone Pcp, No Primary Care [...] Vaccines (1 - 3-dose SCDM series) 2024 [id number] Vaccine (3 - 2024- season) 2025 08/06/2021, [...] to complete this topic Insurance Care Teams Shop Laborer Relationship Specialty Start Date [place] [address] PCP - General Family Medicine 04/08/24
--- OUTSIDE RECORDS SUMMARY | 2025-09-02 12:02 | XMS_ITS | Patient Health Record ---
Author Organization [facility] Address [address] [facility] [address] [place] [id number] Care Team Providers Care Gas Meter Repair Supervisor Name Role Phone Johnathan Duenas Primary Care Provider [phone] Adama Ballard Unavailable [phone] Radha Awad Unavailable [phone] Allergies No Known Allergies Results Component Value Reference Range Notes P-T4 Free (thyroxine) Reviewed date:01/27/2025 02:33:57 PM Interpretation:2.1 Performing Lab: Notes/Report: Test performed by [facility] [address] [place], [place] [address] [place] , [address], [place] [address] Nick Brady MD, Boring Mill Set Up Operator CLIA: [id number] Thyroxine Free (free T4) 2.10 0.86-1.76 ng/dL P-Total T3 Reviewed date:01/27/2025 02:33:57 PM Interpretation:Normal Performing Lab: Notes/Report: Test performed by [facility] [address] [place] [address] , [address], [place] [address] Nick Brady MD, Boring Mill Set Up Operator CLIA: [id number] Total T3 1.98 0.80-2.00 ng/mL P-TSH Reviewed date:01/27/2025 02:33:57 PM Interpretation:0.01 Performing Lab: Notes/Report: Test performed by [facility] [address] [place] [address] , [address], [place] [address] Nick Brady MD, Boring Mill Set Up Operator CLIA: [id number] TSH 0.01 0.43-5.25 mU/L P-T4 Free (thyroxine) Reviewed date:08/18/2025 02:54:03 PM Interpretation:Normal Performing Lab: Notes/Report: Test performed by [facility] [address] , [place] [address] Nick Brady MD, Boring Mill Set Up Operator CLIA: [id number] Thyroxine Free (free T4) 1.09 0.86-1.76 ng/dL P-Total T3 Reviewed date:08/18/2025 02:54:12 PM Interpretation:Normal Performing Lab: Notes/Report: Test performed by [facility] [address] , [place] [address] Nick Brady MD, Boring Mill Set Up Operator CLIA: [id number] Total T3 1.31 0.80-2.00 ng/mL P-TSH Reviewed date:08/18/2025 02:54:22 PM Interpretation:Normal Performing Lab: Notes/Report: Test performed by [facility] [address] [place] [address] , [place] [address] Nick Brady MD, Boring Mill Set Up Operator CLIA: [id number] TSH 2.59 0.43-5.25 mU/L Rapid Strep- Inhouse Reviewed date:05/11/2025 05:36:52 PM Interpretation: Performing Lab: Notes/Report: strep test Neg P-Amylase Reviewed date:05/13/2025 09:49:59 AM Interpretation:Normal Performing Lab: Notes/Report: Test performed by [facility] [address] , [place] [address] Nick Brady MD, Boring Mill Set Up Operator CLIA: [id number] Amylase 42 28-100 U/L P-Antistreptolysin O AB Reviewed date:05/13/2025 09:49:59 AM Interpretation:Normal Performing Lab: Notes/Report: Test performed by [facility] [address] , [place] [address] Nick Brady MD, Boring Mill Set Up Operator CLIA: [id number] Antistreptolysin O AB 175.0 <20-200.0 IU/mL P-Comprehensive Metabolic Pa helio (CMP) Reviewed date:05/13/2025 09:49:59 AM Interpretation:bili 1.4 Performing Lab: Notes/Report: Test performed by [facility] [address] [place] [address] [place] [address] Nick Brady MD, Boring Mill Set Up Operator CLIA: [id number] Sodium 137 135-145 mmol/L Potassium 4.1 3.5-5.3 [...] Interpretation:Reactive Performing Lab: Notes/Report: Test performed by [facility] [address] [place] [address] [address], [place] [address] Nick Brady MD, Boring Mill Set Up Operator CLIA: [id number] Cytomegalovirus (CMV) Antibody, IgG Reactive Non-Reactive This [...] >8 Performing Lab: Notes/Report: Test performed by [facility], [address] , [address], [place] [address] Nick Brady MD, Boring Mill Set Up Operator CLIA: [id number] Deidre Dewey Virus (EBV) VCA Antibodies IgG >8.0 <0.9 AI Deidre Dewey Virus (EBV) VCA Antibodies IgM 0.3 <0.9 AI P-Sed Rate (ESR) Reviewed date:05/13/2025 09:50:00 AM Interpretation:Normal Performing Lab: Notes/Report: Test performed by [facility] [address] , [address], [place] [address] Nick Brady MD, Boring Mill Set Up Operator CLIA: [id number] Erythrocyte Sedimentation Rate (ESR), Automated 18 <26 mm/hr P-Lipase Reviewed date:05/13/2025 09:50:00 AM Interpretation:Normal Performing Lab: Notes/Report: Test performed by [facility] [address] , [place] [address] Nick Brady MD, Boring Mill Set Up Operator CLIA: [id number] Lipase 19.8 13.0-60.0 U/L CBC Fingerstick (in house) Reviewed date:05/11/2025 [...] 38 plat 91 100 - 400 CBC Fingerstick (in house) Reviewed date:02/10/2025 11:39:27 [...] - 38 plat 177 100 - 400 Rapid Strep- Inhouse Reviewed date:02/10/2025 11:39:14 AM Interpretation: Performing Lab: Notes/Report: strep test Neg CBC Fingerstick (in house) Reviewed date:06/02/2025 12:07:20 [...] 38 plat 186 100 - 400 CBC Venipuncture (in house) [...] Interpretation:Normal Performing Lab: Notes/Report: Test performed by [facility], [employer] [address] [place] [address] , [address], [place] [address] Nick Brady MD, Boring Mill Set Up Operator CLIA: [id number] Sodium 141 135-145 mmol/L Potassium 4.2 3.5-5.3 [...] 0.71 Performing Lab: Notes/Report: Test performed by [facility] [address] [place], [place] [address] [place] [address], [place] [address] Nick Brady MD, Boring Mill Set Up Operator CLIA: [id number] Erythrocyte Sedimentation Rate (ESR), Automated 11 <26 mm/hr Rheumatoid Factor 12.0 <14.1 IU/mL C-Reactive Protein (CRP) 0.71 <0.50 mg/dL Antinuclear Antibodies (LATRICIA) Screen, Reflex LATRICIA 9 Panel Negative Negative This test is performed by Multiplex Bead Immunoassay methodology. Antinuclear Antibodies (LATRICIA) Result Note SEE COMMENT For positive Autoantibodies, please refer to the interpretive chart here: [email or web address]/w [email or web address]-content/[email or web address]-Inter pretive-Chart.[email or web address] CCP Antibodies <0.5 <0.5-3.0 U/mL P-T4 Free (thyroxine) Reviewed date:01/05/2025 01:01:14 PM Interpretation:Normal Performing Lab: Notes/Report: Test performed by [facility] [address] [place], [place] [address] [place] [address] Nick Brady MD, Boring Mill Set Up Operator CLIA: [id number] Thyroxine Free (free T4) 1.50 0.86-1.76 ng/dL P-Thyroid Antibody Panel (TA BS) Reviewed date:01/05/2025 01:01:14 PM Interpretation:Normal Performing Lab: Notes/Report: Test performed by [facility] [address] [place], [place] [address] [place] [address], [place] [address] Nick Brady MD, Boring Mill Set Up Operator CLIA: [id number] Thyroid Peroxidase Antibody 17 <9-34 IU/mL An [...] Interpretation:0.17 Performing Lab: Notes/Report: Test performed by [facility] [address] [place] [address] , [address], [place] [address] Nick Brady MD, Boring Mill Set Up Operator CLIA: [id number] TSH 0.17 0.43-5.25 mU/L xultrasound : thyroid Reviewed date:01/05/2025 01:01:13 PM Interpretation:homogenous thyroid Performing Lab: Notes/Report: homogenous thyroid Reason For Referral Diagnosis 1 Rash (R21) [facility] Referring Provider First Name Johnathan Referring Provider Last Name Yulissa Referring Provider [facility] ctice Referred Provider Herber Ojeda Referred Provider Specialty Dermatology General Notes Zuleyka Lin 2024 10:44:17 AM > faxed to Dr. Ojeda at [facility] Referral Priority Routine Diagnosis 1 Generalized abdomina l pain (R10.84) Diagnosis 2 Abdominal bloating ( R14.0) Diagnosis 3 Chronic nausea (R11. 0) [facility] Referring Provider First Name Johnathan Referring Provider Last Name Yulissa Referring Provider [facility] Referred Organization [facility] OP Referred Provider JOSHUA BERNARDO Referred Address [address] [place] [id number], Referred Provider Specialty Gastroentero logy General Notes Zuleyka Lin 2024 09:03:00 AM > faxed to [facility] Referral Priority Routine Medications Medication SIG (Take, Route, Fr equency, Duration) Notes Start Date End Date Status Ketoconazole 2 % 1 application [address] ally Once a day 05/20/2025 Active Ondansetron HCl 4 MG 1 tablet Orally 3 times a day As needed 05/13/2025 Active busPIRone HCl 10 MG 1 tablet Orally Twice a day Active Multi Vitamin - 1 tablet Orally Once a day; Duration: 30 day(s) Active traZODone HCl 50 MG 1 tablet at bedtime as needed Orally Once a day Active Omeprazole 40 MG 1 [...] W/U Status Risk Notes Problem Essential hypertension (58207119) Essential hypertension (I10) Active confirmed Problem Hyperthyroidism (01199649) Hyperthyroidism (E05.90) Active confirmed Problem Mixed anxiety and depressive disorder (437116245) Depression with anxiety (F41.8) Active confirmed Problem Chronic pain (24497653) Other chronic pain (G89.29) Active confirmed Problem Thrombocytopenia (695191636) Thrombocytopenia (D69.6) Active confirmed Problem Chronic rhinitis (14718028) Rhinitis, unspecified type (J31.0) Active confirmed Problem Thyromegaly (8848392) Thyromegaly (E01.0) Active confirmed Problem Obesity (910278180) Non morbid o besity (E66.9) Active confirmed Problem Primary hypertension (24082490) Primary hypertension (I10) Active confirmed Vital Signs Heart Rate 80 /min 05/11/2025 Blood pressure diastolic 70 mm Hg 05/11/2025 Height 61.5 in 05/11/2025 Blood pressure systolic 110 mm Hg 05/11/2025 Weight 221 lbs 05/11/2025 BMI 41.08 kg/m2 05/11/2025 Encounters Encounter Location Date Provider Diagnosis [facility] [address] [place], [place] [id number] 11/10/2024 Johnathan Forreston Essential hypertensi on I10 [facility] [address] [place], [place] [id number] 11/15/2024 Johnathan Forreston Herpes zoster withou t complication B02.9 [facility] [address] [place], [place] [id number] 12/29/2024 Radha Crowdy Myalgia M79.10 ; Arthralgia, unspecified joint M25.50 ; Heart palpitations R00.2 ; Hair loss L65.9 ; Other fatigue R53.83 ; Elevated liver enzymes R74.8 ; Thyromegaly E01.0 and Rash R21 [facility] [address] [place], [place] [id number] 01/26/2025 Johnathan Forreston Low TSH level R79.89 and Rash R21 [facility] [address] [place] [id number] 02/10/2025 Radha Crowdy Acute otitis media, right H66.91 ; Acute URI J06.9 and Body aches R52 [facility] [address] [place], [place] [id number] 02/18/2025 Johnathan Forreston Acute diarrhea R19.7 and Hyperthyroidism E05.90 [facility] [address] [facility] [address] [place], [place] [id number] 05/11/2025 Johnathan Forreston Fever, unspecified R 50.9 ; Sorethroat J02.9 ; Epigastric abdominal pain R10.13 ; Heartburn R12 ; Thrombocytopenia D69.6 ; Family history of breast cancer in female Z80.3 and Skin rash R21 [facility] [address] [place], [place] [id number] 05/31/2025 Johnathan Forreston Thrombocytopenia D69 .6 [facility] [address] [place] [id number] 08/17/2025 Johnathan Forreston Hyperthyroidism E05. 90 [facility] [address] [place], [place] [id number] 01/03/2025 Radha Crowdy [facility] [address] [place] [id number] 01/27/2025 Johnathan Forreston [facility] [address] [place] [id number] 02/07/2025 Johnathan Forreston [facility] [address] [place] [id number] 02/15/2025 Johnathan Forreston [facility] [address] [place] [id number] 02/16/2025 Johnathan Forreston [facility] [address] [place] [id number] 02/28/2025 Johnathan Forreston [facility] [address] [place] [id number] 05/13/2025 Johnathan Forreston [facility] [address] [place] [id number] 05/20/2025 Johnathan Forreston Skin rash R21 [facility] [address] [place] [id number] 05/20/2025 Johnathan Forreston [facility] [address] [place] [id number] 05/26/2025 R Randall Nellie [facility] [address] [place] [id number] 06/13/2025 Johnathan Forreston Rash R21 [facility] [address] [place] [id number] 06/30/2025 Johnathan Forreston Generalized abdomina l pain R10.84 ; Abdominal bloating R14.0 and Chronic nausea R11.0 [facility] [address] [place], [place] [id number] 01/28/2025 Johnathan Forreston [facility] [address] [place] [id number] 04/30/2025 Johnathan Forreston Assessments Encounter Date Diagnosis (ICD Code) Assessment [...] R10.84) 06/30/2025 Abdominal bloating (ICD-10 - R14.0) 08/17/2025 Hyperthyroidism (ICD-10 - E05.90) 11/10/2024 Essential hypertension (ICD-10 - I10) Patient [...] Start Date Coverage End Date FRANCES [employer]IG [employer] [address] [place] [address] [id number] ISABELA GODINEZ Self - patient is the insured Medical (General) History Surgical History Surgery Date(Month/Year) Tonsillectomy 2000 Bilateral Ankles 2019 Cholecystectomy 2017 [facility] Teeth 2014 D & C 2019 Tubal Ligation 2024 Hospitalization History Reason Date(Month/Year)
--- OUTSIDE RECORDS SUMMARY | 2025-09-02 12:02 | XMS_ITS | Clinical Summary ---
Author Organization [facility] Address [address] [place] [address] Care Team Providers Care Cna Instructor Name Role Phone Provider, No Known Primary [...] such, I have scheduled Ms Cisneros with [facility] for possible PUBS/IUT procedure tomorrow. She will be at their ultrasound unit tomorrow at 0800. D/w Dr Marry Vogt. Records faxed. Follow up with [facility] TBD Dysmenorrhea 04/21/2023 Intrahepatic cholestasis of [...] Date Recorded Retired Total Score 14 07/16/2021 [facility] - [...] things needed for daily living? No 11/13/2020 [place] Depression Scale Answer Date Recorded [place] Depression Scale Total 5 06/05/2021 The thought [...] Lab Report [facility] [address] [place] [address] or [phone] Wong Wall M.D., Plant Physiology Teacher PATIENT NAME LABORATORY NO. ISABELA CARDOSO [id number] AGE SEX SSN CLIENT REF # [facility] 25 1995 F [id number] ZACARIAS TROTTER REQUESTING Edis [place] [address] ALCIRA ORTIZ DATE COLLECTED DATE RECEIVED DATE [...] of chlamdial and gonococcal disease using the [place] system. RN HEMO DIALYSIS: LEXI SAUCEDA (ASCP) CPT CODES: 11172, 21443, 54804 04/08/2023 2:46 PM EDT [facility] ThinPrep Vial Cervix uteri structure / Unknown Collection / Unknown 04/07/2023 8:19 AM EDT 04/07/2023 8:19 AM EDT Alcira Ortiz MD PATHOLOGY/CYTOLOGY ORDER CALLUM Final Result [facility]
[address] [place] [address], * Obstetric Panel (11/13/2020 12:00 AM EST) Hepatitis B Surface Ag Negative Negative [facility] Hep C Virus Ab <0.1 0.0 - 0.9 s/co ratio [facility] Comment: Negative: < 0.8 Indeterminate: 0.8 - 0.9 Positive: > 0.9 The CDC recommends that a positive HCV antibody result be followed up with a HCV Nucleic Acid Amplification test (931957). RPR Non Reactive Non Reactive [facility] [...] x10E3/uL [facility] 11/13/2020 11/13/2020 Narrative [facility] (AMBULATORY) - 11/15/2020 6:09 AM EST Performed at: - [facility] [place] [address] [place], [place] [id number] Hardboard Factory Worker: Micah Warner PhD, Phone: [phone] Alcira Ortiz MD LAB BLOOD ORDERABLES Fin al Result [facility] (AMBULATORY) [address] [place] [address], [facility] [address] [place] [address], from Last 3 Months or Most Recently Relevant to Health Maintenance Insurance [facility] PPO Advance Directives * CPR (Attempt to Resuscitate) (Latest Code Status on File) Date Activated Date Inactivated Comments 06/05/2021 6:00 AM 06/07/2021 4:15 PM Question Answer Comments Code Status (Patient has no pulse and is not breathing): CPR (Attempt to Resuscitate) Medical Interventions (Patie nt has pulse or is breathing): Full Care Teams Cna Instructor Relationship Specialty Start Date End Date Provider, No Known [facility] [place] [address] PCP - General 12/04/20
--- OUTSIDE RECORDS SUMMARY | 2025-09-02 12:03 | XMS_ITS | Data Portability ---
Author Organization [facility] SIA Sellers [place] [facility] Address [address] [place] [address] Assessment No assessment recorded. Plan of Treatment Reminders Order Date Submit Date Provider Last Modified By Organization Details Last Modified Time Details Appointments None recorded. Lab TSH, serum or plasma 2024 025 [facility], [address] [place] [address], [phone], 5 12:55:28 T4, free, serum 2024 025 [facility], [address] [place] [address], [phone], 5 12:55:29 T3, free, serum or plasma 2024 025 [facility], [address] [place] [address], [phone], 5 12:55:26 tsi (thyroid-st imulating immunoglobu gab), serum 2024 025 [facility], [address] [place] [address], [phone], 5 17:55:21 thyroid peroxidase (tpo) Ab, serum 2024 025 [facility], [address] [place] [address], [phone], 5 16:48:25 Referral None recorded. Procedures None recorded. Surgeries None recorded. Imaging None recorded. Medication Orders None recorded. Patient TargetsNo targets recorded. Patient InstructionsNo instructions recorded. Reason for Referral None Reported. Results Created Date Observation Date Name Description Value Unit Range Abnormal Flag Note LastModifiedBy Organization Detail LastModifiedTime 03/23/2003/23/2025 T3 FREE T3 free 3.00 pg/mL 2.00-4 .40 normal Not Available [facility] [address] [place] [address], [phone], 03/23/2025 12:55:26 03/23/20 25 03/23/2025 TSH TSH 0.019 u[IU] /mL 0.270- 4.200 low Not Available [facility] [address] [place] [address], [phone], 03/23/2025 12:55:28 03/23/20 25 03/23/2025 T4,FR EE T4,free 1.14 NG/dL 0.93-1 .70 normal Not Available [facility] [address] [place] [address], [phone], 03/23/2025 12:55:29 03/23/20 25 03/24/2025 THYRO ID PEROX IDASE AB thyroid peroxidase Ab 1 IU/mL <9 normal Not Available [facility] [address] [place] [address], [phone], 03/24/2025 16:48:25 03/23/20 25 03/29/2025 THYRO ID STIMU LATIN G IGS thyroid stimulating igs <89 %_bas ghazal <140 normal Thyro id stimu latin g immun oglob ulins (TSI) can engag e the TSH receptionist nurse tors resul ting in hyper thyro idism [...] for clini ana purpo ses. Not Available [facility] [address] [place] [address], [address], 03/29/2025 17:55:21 04/20/2004/20/2025 TSH TSH 1.070 u[IU] /mL 0.270- 4.200 normal Not Available [facility] [address] [place], [address], 04/20/2025 09:37:58 04/20/2004/20/2025 T4,FR EE T4,free 0.96 NG/dL 0.93-1 .70 normal Not Available [facility] [address] [place] [address], [phone], 04/20/2025 09:37:59 04/20/2004/20/2025 T3 FREE T3 free 2.93 pg/mL 2.00-4 .40 normal Not Available [facility] [address] [place], [address], 04/20/2025 09:38:01 04/01/20 25 01/03/2025 US, thyro id No observ ation record ed. [email or web address] Not Available 2024 08:24:49 Result Notes None [...] Address Organization Details Last Updated DateTime 03/23/2025 34299.6 g 41.5 kg/m2 154.94 cm 112/68 mm[Hg] David Johns [facility] 03/23/2025 11:18:55 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 None recorded. Functional Status None recorded. Mental Status None recorded. Family History Nothing Reported. 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 No medical history recorded. Gynecological HistoryNo gynecological history recorded. Obstetrics History GPAL:G 0 P 0 0 0 0 Past Encounters Encounter ID Performer Location Encounter Start Date Encounter Closed Date Diagnosis/Indication Diagnosis SNOMED-CT Code Diagnosis ICD10 Code Diagnosis IMO Codes Diagnosis Note [id number] STANISLAW LOVE APRN ENDOCRINO LOGY [address] [place] [address] 03/23/2025 11:03:56 03/23/2025 11:53:33 Hyperthyroidism 09642494 E05.90 [id number] No referral labs on fileDiagno december of [...] ID Guarantor Name 04/22/2025 1 [place] [id number] 2 Césarraymundo Blayne [id number] 43 Jillian Blayne Notes Date Note Type [...] anxiety and rapid heart rate. STANISLAW LOVE, STEEL ERECTOR APPRENTICE [address] [place], [address], [facility] 03/23/2025 12:47:06 OBGyn Episode No OBEpisode recorded.
--- OUTSIDE RECORDS SUMMARY | 2025-09-02 12:03 | XMS_ITS | Clinical Summary ---
Author Organization [facility] Address [address] [place] [address] Care Team Providers Care Coremaking Supervisor Name Role Phone Johnathan Duenas MD Primary Care Provider [phone] Source Comments [facility] is fully rolled out with thefollowing exceptions:[facility] Allergies No known active allergies Medications aspirin [...] on 05/18/24. Jillian Cisneros was referred to [facility] on 05/18/[address] Casper for [...] (MRI, ultrasound) with pediatric surgery, neonatology and [facility] ~ 32 weeks gestation, week of Labor Day 06/29/24 * 06/14 @ @ 30 0: Ultrasound 1. Saenz fetus in cephalic presentation. [...] US today 05/31/2024: echo normal at [facility], will be for 32 weeks team [...] hydrops. - Normal MCA and UA Dopplers. [facility] CARE [facility] PLAN OF CARE Jillian Cisneros was seen today in the [facility] for a diagnosis of [...] Labor (IOL) and a vaginal delivery at [facility] is anticipated at 39 weeks (if yours and Zac's health remains stable-which is routine OB standards); with a low threshold after 37 weeks Get set up with a linux consultant to work with to help your milk come in Does an amnio procedure need to be scheduled for this patient? No PATIENT TO BE SCHEDULED FOR FOLLOW UP WITHIN: No follow up at [facility] needed Problem Noted Date Diagnosed Date [...] topic Insurance FRANCES BAIG NON-TRADITIONAL Care Teams Coremaking Supervisor Relationship Specialty Start Date End Date Johnathan Duenas MD [address] [place] [address] PCP - General External Family Practice 05/30/24
--- OUTSIDE RECORDS SUMMARY | 2025-09-02 12:03 | XMS_ITS | Encounter Summary ---
Author Organization [facility] Address [address] [place] [address] Care Team Providers Care Foundry Engineer Name Role Phone Johnathan Duenas MD Primary Care Provider [phone] Reason for Visit * Reason Onset Date Comments Financial - Insurance 05/18/2024 Schedule Appointment 05/19/2024 Encounter Details Date Type Department Care Team (Late st Contact Info) Description 05/18/[address] [phone] [employer] - Insurance; Schedule [...] Needed For Provider(s): Lilliana For CPT Codes: [id number], [id number], 55142r1, 19168w8, 78048r9, 64584, 49833, 87364, 45149, 28933, 49939, 21739, 90194, 23430, 95359 Qty x 4, 44650, 32407, 35949, 40618, Qty X1 Diagnosis Code: O35.8XX0 For Dates of Service: 06.29.24-08.29.24 Auth/ reference number #: NA Per Availity Phone/Fax: Patient has [place] [employer] Additional Notes: Radiology to authorize the [...] to insurance per insurance guidelines. Patient has [employer] insurance. ID Number:[id number] Effective Date: 10.27.2023 Plan Type: COMMERCIAL PPO Deductible: $1,500 ($0 REM) Coinsurance: 80/20 Out of Pocket: $2,500 ($0 REM) OV Copay: $35 In Network: yes Is it a Covered Benefit?: yes Is a SCA needed: no documented in this encounter Plan of Treatment Not on file documented as of this encounter Visit Diagnoses Not on filedocumented in this encounter Care Teams Foundry Engineer Relationship Specialty Start Date End Date Johnathan Duenas MD [address] [place] [address] PCP - General External Family Practice 05/30/24 documented as of this encounter
--- OUTSIDE RECORDS SUMMARY | 2025-09-02 12:03 | XMS_ITS | Clinical Summary ---
Author Organization [facility] Address [address] [place] [address] Care Team Providers Care Power Plant Technician Name Role Phone Unknown, Attending Provider Primary [...] therelease of HIV test results or diagnoses. [id number] Allergies No known active allergies Medications [...] plan: To be determined at 32 week [facility] visit Known anomaly, antepartum 05/09/2024 Overview (05/31/2024): [...] on US today 05/31/2024: echo normal at [facility], will be for 32 weeks [...] any time in the past 12 [facility], were you homeless or living in a assisted (including now)? No 05/07/2024 Yearly Questionnaire Answer [...] Date Last Done Comments Hepatitis C Screening ([facility]) 1997 Depression Screening 2015 Immunization: Hepatitis B (1 of 3 - 19+ 3-dose series) 2016 Cervical Cancer Screening/Pap Smear ([facility]) 2018 Renal Function/GFR 05/07/2025 05/07/2024, 05/06/2024 Diabetes Screening 05/17/2025 05/17/2024 Immunization: COVID-19 ( season) 2025 08/06/2021, 07/17/2021 Immunization: Influenza ([facility]) (#1) 2025 Immunization: DTaP/Tdap/Td (5 - Td [...] 1 Hour (05/17/2024 11:30 AM EDT) Pathologist [facility] Glucose Challenge, 1 Hr 132 mg/dL 05/17/2024 12:49 PM EDT [facility] Comment: 1 HOUR GLUCOSE CHALLENGE INTERPRETATION: Women/ Non Adult - 50 gram glucose load screening for gestational diabetes Expected normal response: A one hour glucose result of less than 140 mg/dL. Plasma 05/17/2024 11:3 0 AM EDT 05/17/2024 12:11 PM EDT us Timoteo Sosa MD LAB BLOOD ORDERABLES F inal Result [facility] [address] * (ABNORMAL) Comprehensive Metabolic Panel, STAT (05/07/2024 5:46 PM EDT) Pathologist [facility] Sodium 138 133 - 146 mmol/L 05/07/2024 6:30 PM EDT [facility] Potassium 3.6 3.5 - 5.3 mmol/L 05/07/2024 6:30 PM EDT [facility] Chloride 107 98 - 110 mmol/L 05/07/2024 6:30 PM EDT [facility] CO2 21 21 - 33 mmol/L 05/07/2024 6:30 PM EDT [facility] Anion Gap 10 3 - 16 mmol/L 05/07/2024 6:30 PM EDT [facility] BUN 4(L) 7 - 25 mg/dL 05/07/2024 6:30 PM EDT [facility] Creatinine 0.47(L) 0.60 - 1.30 mg/dL 05/07/2024 6:30 PM EDT [facility] Glucose 174(H) 70 - 100 mg/dL 05/07/2024 6:30 PM EDT [facility] Calcium 8.7 8.6 - 10.3 mg/dL 05/07/2024 6:30 PM EDT [facility] Total Bilirubin 0.4 0.0 - 1.5 mg/dL 05/07/2024 6:30 PM EDT [facility] AST 14 13 - 39 U/L 05/07/2024 6:30 PM EDT [facility] ALT 10 7 - 52 U/L 05/07/2024 6:30 PM EDT [facility] Alkaline Phosphatase 56 36 - 125 U/L 05/07/2024 6:30 PM EDT [facility] Total Protein 6.5 6.4 - 8.9 g/dL 05/07/2024 6:30 PM EDT [facility] Albumin 3.4(L) 3.5 - 5.7 g/dL 05/07/2024 6:30 PM EDT [facility] Osmolality, Calculated 287 278 - 305 mOsm/kg 05/07/2024 6:30 PM EDT [facility] EGFR >90 05/07/2024 6:30 PM EDT [facility] Comment: As of 2021, the estimated [...] MD LAB BLOOD ORDERABLES Final Resul t [facility] [address] * , HIV 1/2 Ab+Ag with Reflex (05/06/2024 9:10 PM EDT) HIV 1+2 AB/AGN Nonreactive Nonreactive 05/06/2024 10:08 PM EDT [facility] Serum 05/06/2024 9:10 PM EDT 05/06/2024 9:21 PM EDT Narrative [facility] - 05/06/2024 10:08 PM EDT HIV-1 p24 Antigen and HIV-1/HIV-2 Antibody not detected. Fernando Leonard MD LAB BLOOD ORDERABLES Final Re sult Performing Organization Address City/[facility]/ZIP Co de Phone Number [facility] [address] [facility]. [address] from Last 3 Months or Most Recently Relevant to Health Maintenance Insurance [place] [id number] BLUE ACCESS Advance Directives For more information, please contact: [phone] * Full Code (Latest Code Status on File) Date Activated Date Inactivated Comments 05/06/2024 8:33 PM 05/09/2024 5:04 PM Care Teams Power Plant Technician Relationship Specialty Start Date End Date Unknown, Attending Provider PCP - General 05/06/24
--- NOTE | 2025-09-02 12:32 | ECG_ITS ---
APPROVED REPORT Exam: Resting ECG HR:67 bpm ECG Measurements Heart Rate 67 AXES CA 140 P 22 QRSd 92 QRS 9 QT 391 T -17 QTc 407 Conclusion SINUS RHYTHM NONSPECIFIC T-WAVE ABNORMALITY unchanged from prior BORDERLINE ECG UNCONFIRMED REPORT Electronically signed by : Jeovany Landrum MD 09/02/2025 17:21:03
[2025-09-02 14:42] VITALS: BMI 41.1
== END 2025-09-02 23:59 | disposition home or self-care (01) ==
LOC: PREOP 11:59
PROVIDERS: PCP Family Medicine; Visit Provider Podiatrist
DX: Z01.810 Encounter for preprocedural cardiovascular examination (principal); R94.31 Abnormal electrocardiogram [ECG] [EKG]
CPT/HCPCS: 93005

== ENCOUNTER 2025-09-07 08:16 | Day surgery (SDC) | payer BC, OTHER, SELFPAY ==
[2025-09-02 08:41] VITALS: BMI 41.1
[2025-09-02 12:57] LABS: Hematocrit 39.3 % (37.0-47.0); Hemoglobin 13.2 g/dL (12.2-16.2); Immature Granulocytes % 0.3 %; Mean Corpuscular HGB Conc 33.6 g/dL (31.8-35.4); Mean Corpuscular Hemoglobin 29.3 pg (27.0-31.2); Mean Corpuscular Volume 87.3 fl (81-99); Nucleated Red Blood Cells % 0 %; Platelet Count 211 K/mm3 (142-424); Red Blood Count 4.50 M/mm3 (4.20-5.40); Red Cell Distribution Width-SD 44.6 fL; White Blood Count 5.9 K/mm3 (4.8-10.8)
[2025-09-02 13:04] LABS: Urine Pregnancy, HCG Qual. Negative (Negative)
[2025-09-02 13:17] LABS: Alanine Aminotransferase 22 U/L (12-78); Albumin Level 4.3 g/dl (3.5-5.0); Albumin/Globulin Ratio 1.2 (1.1-1.8); Alkaline Phosphatase 61 U/L (38-126); Anion Gap 9.6 mEq/L (5-15); Aspartate Amino Transferase 24 U/L (14-36); Bilirubin,Total 1.0 mg/dl (0.2-1.3); Blood Urea Nitrogen 10 mg/dl (7-17); Calcium 9.3 mg/dl (8.4-10.2); Carbon Dioxide 27 mmol/L (22.0-30.0); Chloride 102 mmol/L (98-107); Creatinine Clearance Estimated 220 mL/min (50-200); Creatinine,Serum 0.60 mg/dl (0.52-1.04); Estimated Glomerular Filt Rate 120 ml/min (>60); GFR (African American) 145 ML/MIN (>60); Globulin 3.7 g/dL (1.3-3.2); Glucose 90 mg/dl (74-100); Potassium 3.6 mmoL/L (3.5-5.1); Sodium 135 mmol/L (136-145); Total Protein,Serum 8.0 g/dl (6.3-8.2)
[2025-09-07] VITALS (10 sets, daily range): BP systolic 105–147; BP diastolic 69–98; PULSE 62–94; RESP 14–18; TEMP 36.1–38; O2SAT 97–100
[2025-09-07] MEDS: 0.9 % SODIUM CHLORIDE 1000ML 1,000 ML 25 ML IV (09:32)
--- NOTE | 2025-09-07 09:43 | XR_ITS ---
FINAL REPORT CLINICAL HISTORY: HWR IN OR 1.14 mGy 29 secs fluoro FINDINGS: FLUOROSCOPY LESS THAN 1 HOUR HISTORY: Fluoroscopy guidance. FINDINGS: Fluoroscopic guidance was provided for hardware removal in the OR. Three spot films were obtained. A total of 29 seconds of fluoroscopy time were used. DAP: 1.14 mGy IMPRESSION: As above. Reviewed, Interpreted and Dictated by Phil Dill MD Transcribed by Ariana Ross Authenticated and [facility]
--- NOTE | 2025-09-07 10:00 | P.OP_ITS ---
Date of procedure: 09/07/25 Pre-op Diagnosis:: Left foot exostosis/talus bone spur Painful retained orthopedic hardware Neuritis Extensor tendon synovitis Left ankle soft tissue mass/lipoma x3 Left foot ganglion cyst Post-op Diagnosis:: Same Procedure performed:: Left foot partial resection talus bone/exostectomy (27662) Left foot hardware removal (56046) Nerve decompression (13141) Left foot synovectomy (extensor tendon-24438) Left foot ganglion cyst x1 (10797) Left medial foot/ankle soft tissue mass removal/lipoma x1 Left lateral ankle lipoma excision x2 Surgeon:: Odilia Parker DPM Anesthesia: GETA and regional (L pop/add nerve block) Estimated blood loss (mL): 30 Clinical Note:: Pre-op Indications: The patient is a 29-year-old female who has had surgery on 11/13/18: s/p left tarsal coalition (CN) resection, STJ AD, synovectomy, medial arthrotomy, excision of ganglion cyst, peroneal tendon synovectomy/debridement. She went several years without issues to the left foot/ankle. However over the last 6 months to a year she has had more pain and trouble with the left ankle. She reports a clicking and feels something pinching inside the dorsal medial foot. Recent imaging has included x-rays, MRI and CT scan. 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 I also explained the dorsal talus screw head could be causing some impingement as it is more prominent medial and there is fluid and suspected soft tissue mass around it dorsally on the MRI. The patient has tried immobilization, modification of shoe gear/activity, strapping, inserts, ice, elevation, and NSAIDs. She has also tried ankle bracing and home physical therapy. After a long discussion with the patient in regards to the conservative versus surgical treatment for the left foot pain, the patient has elected to proceed with surgery because they have failed conservative treatment and continue to have pain and worsening symptoms affecting daily activities. The patient has been instructed on the planned procedure: Hardware removal, nerve decompression, removal of soft tissue mass and scar tissue. Common risks versus benefits of the procedure discussed. These include but are not limited to: bleeding, infection, nerve and blood vessel damage, incomplete removal of soft tissue mass, recurrence of soft tissue mass, need for further surgery, delay in healing of soft tissue or bone, tendon injury/rupture, failure of bones to heal, non-union, mal-union, failure of the implant, need for implant removal, fracture with implant removal, prolonged/permanent swelling/pain and recovery, CPRS/RSD, DVT/PE and anesthetic complications including . No guarantees were given. All questions fully answered the patient's satisfaction. The patient verbalized understanding and agreed to proceed with surgery. Verbal and written consent was obtained. On the day of surgery, patient reports pain to outer ankle. Permission given to evaluate peroneal tendons. Operative findings:: Left medial foot/ankle soft tissue mass noted over the PT tendon, ~1.5cm round. Suspect the mass was impinging on the PT nerve, removing the mass help decompress nerve. Prior surgery, well-healed surgical scar on the lateral foot/ankle. Fibrotic scar tissue at this level. Lipoma noted x 2 over the peroneal tendon ~1.5cm round and the ATFL ~2cm round. All soft tissue masses were resected with 15 blade and forceps. Over the anterior talus, prior well- healed surgical scar noted. Hardware was removed from the anterior ankle. Bone appeared hard with normal texture and color and no obvious signs of bone infection. Screw was sent to micro for culture. Separate incision made over the talonavicular joint. There was a ganglion cyst noted directly arising from the joint which was resected and sent as specimen ~0.5cm round with gelatinous cystic material inside. Dorsal spurring noted to the TN joint which was resected. *This case took approximately 20 to 30 minutes longer than normal due to prior surgery and fibrotic scar tissue, patient body habitus which required more extensive dissection. Also the hardware was completely overgrown with hypertrophic bone and required more extensive dissection. Overall prognosis fair as nerve was decompressed, soft tissue masses were resected and 1 screw and bone spurs were removed. Operative note:: On this date and time, the patient was deemed an appropriate surgical candidate. With informed consent signed, the patient was taken to the operating theater after regional nerve block by anesthesia. The patient was positioned supine. General anesthesia was induced. Left mid calf tourniquet was applied @225mmHg. The left lower extremity was prepped and draped in normal sterile fashion. IV Ancef infused. Left medial foot/ankle excision of soft tissue mass: Linear incision made over the medial foot over the PT tendon directly over the soft tissue mass. Dissection was carried through skin to subcutaneous tissue with care taken to maintain surgical hemostasis and safely retract neurovascular structures. What appeared to be a lipoma was identified and resected, sent to pathology specimen. This area was directly over the tarsal tunnel which could be a cause of some of the nerve neuritis symptoms. Wound flushed. Vicryl and nylon used to reapproximate subcutaneous tissue and skin. Left extensor tendon synovectomy: A separate incision was made out over the anterior foot over the talonavicular joint. Layered dissection performed. The extensor digitorum brevis had some synovitis noted. 15 blade and forceps used to debride tendon. No obvious tear or rupture noted. There appeared to be a soft tissue mass arising that was deeper to the tendon. Left foot ganglion cyst removal: Via the same incision further dissection performed under deep fascia to the level of the talonavicular joint. A ganglion cyst was identified and removed, sent to pathology specimen. Left foot partial resection talus/exostectomy: After ganglion cyst removal the TN joint was evaluated. There was dorsal spurring noted. A rongeur and hand rasp were used to resect the bony prominence at the anterior dorsal aspect of the talus. Piece of talus bone was sent as bone pathology. No obvious signs of bone infection noted. Wound flushed with gentamicin irrigation. Left foot hardware removal: A separate incision was then made over prior surgical incision. Fibrotic scar tissue was noted at this level. Dissection down to the level of the bone. The 4.0mm cannulated screw head was not identified as there was complete bony overgrowth to the screw head noted. This bone was resected until hardware visualized. Under intraoperative fluoroscopy, the screw was removed and sent to culture. Wounds flushed with gentamicin irrigation. Tensix was used to backfill the bony defect. The 2 subtalar screws running from posterior heel were left intact. Vicryl and Monocryl used to reapproximate subcutaneous tissue and skin. Left lateral ankle/foot lipoma removal: A separate incision was mapped out over the peroneal tendons directly over prior healed surgical incision. Dissection down through fibrotic scar tissue. Lipoma identified over ATFL region. It was removed. A second soft tissue mass/lipoma noted directly over peroneal retinaculum which had a defect where lipoma was noted. Lipoma resected, sent to path. Wound was flushed with irrigation. Vicryl was used to reapproximate the peroneal retinaculum defect. A piece of amniotic graft was cut in half and placed over where the peritoneal retinacular defect was to prevent adhesions and scar tissue formation. Neuroectomy, application of amniotic graft: The intermediate/communication cutaneous nerve was identified. A piece of the amniotic graft was then wrapped around the nerve to prevent scar tissue and adhesions to help decrease nerve symptoms. Deep fascia reinforced with Vicryl. Subcutaneous tissue reapproximated with 3-0 Vicryl in a running fashion. Nylon used to reapproximate the skin in an interrupted fashion. The skin was cleansed. Dermabond Prineo applied over the Monocryl incisions. Xeroform, betadine soaked gauze, dry sterile dressing was applied to the foot. The patient was awoken from anesthesia and transferred to recovery with vital signs stable and neurovascular status intact. Patient appeared to tolerate procedure and anesthesia well without complication. Materials: Paligen amniotic graft x 1 (4x4cm), Nylon, Dermabond prineo Discharge/Plan: Patient is to maintain dressing clean dry and intact. Ice to the top of the foot and elevate on two pillows. Polar pack behind left knee. Non weight bearing to the left lower extremity with DME assistance (crutches/RKS/walker). Follow up in one week as scheduled for incision check and dressing change. Tourniquet time (min): 70 Condition: stable Disposition: same day Specimens:: Micro: Left foot hardware Path: Left medial ankle lipoma Left lateral ankle lipoma Left anterior foot ganglion cyst Left talus bone Complications:: None
[2025-09-07] MEDS: GENTAMICIN 80 MG/2 ML VIAL (10:33)
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
--- NOTE | 2025-09-07 12:23 | EXP.ANES.I ---
[facility] Anesthesia Record Part I Anesthesia Record I Intake, IV Amount: 1,600 Hydration: Adequate Estimated blood loss (mL): 29 Urine output (mL): 0 Blood Products used (#): none Blood Pressure: 147/98 SaO2: 99 Pulse Rate: 94 Airway Patency: Patent Respiratory Rate: 14 Temperature: 98.1 F Patient is:: Drowsy and Stable Stable to PACU at:: 12:15
[2025-09-07] MEDS: ONDANSETRON 4MG/2ML VIAL 4 MG IV (12:30)
--- NOTE | 2025-09-07 12:30 | XR_ITS ---
FINAL REPORT CLINICAL HISTORY: s/p hardware removal, STM removal COMPARISON: None FINDINGS: Three views of the left ankle show 2 surgical fusion screws within the posterior subtalar joint. There is evidence of an old avulsion fracture of the medial malleolus. No acute fracture identified. There are degenerative changes of the talonavicular. IMPRESSION: No acute findings. Reviewed, Interpreted and Dictated by hPil Dill MD Transcribed by Ariana Ross Authenticated and . [facility]
--- NOTE | 2025-09-07 12:30 | XR_ITS ---
FINAL REPORT CLINICAL HISTORY: s/p hardware removal, STM excision COMPARISON: 04/12/2019 FINDINGS: Three views of the left foot show interval removal of anterior subtalar fixation screw. The posterior subtalar fixation screws remain in place. There are moderate degenerative changes of the talonavicular joint. No acute fracture. IMPRESSION: Interval hardware removal. Reviewed, Interpreted and Dictated by Phil Dill MD Transcribed by Ariana Ross Authenticated and [facility]
[2025-09-07] MEDS: MEPERIDINE 25MG/ML 1ML SYRINGE 12.5 MG IV (12:41)
--- NOTE | 2025-09-07 16:19 | P.PNANES_ITS ---
[facility] Anesthesia Record Part II Anesthesia Record Part II Discharge Time: 13:16 Destination: Surgical Day Care (OP Surgery) PACU nurse assessment reviewed?: Yes Patient Condition:: Good Anesthesia Complications:: None Swallowing reflex intact?: Yes Airway Patency: Patent Cyanosis?: No Blood Pressure: 106/74 SaO2: 100 Respiratory Rate: 17 Pulse Rate: 64 Temperature: 97.0 F Mental Status: Alert & Oriented Pain level:: 0 Nausea and/or vomitting:: None Intake, IV Amount: 0 Hydration: Adequate
== END 2025-09-07 13:38 | disposition home or self-care (01) ==
PROVIDERS: PCP Family Medicine; Visit Provider Podiatrist
PROC: (CPT 20680; principal; 2025-09-07 10:00)
DX: M67.472 Ganglion, left ankle and foot (principal); D17.24 Benign lipomatous neoplasm of skin and subcutaneous tissue of left leg; S86.312A Strain of muscle(s) and tendon(s) of peroneal muscle group at lower leg level, left leg, initial encounter; I89.0 Lymphedema, not elsewhere classified; M65.971 Unspecified synovitis and tenosynovitis, right ankle and foot; M65.972 Unspecified synovitis and tenosynovitis, left ankle and foot; M54.30 Sciatica, unspecified side; M67.372 Transient synovitis, left ankle and foot; G57.92 Unspecified mononeuropathy of left lower limb; K58.1 Irritable bowel syndrome with constipation; K21.9 Gastro-esophageal reflux disease without esophagitis; E66.01 Morbid (severe) obesity due to excess calories; Z90.49 Acquired absence of other specified parts of digestive tract; Z90.79 Acquired absence of other genital organ(s); Z96.9 Presence of functional implant, unspecified; Z83.2 Family history of diseases of the blood and blood-forming organs and certain disorders involving the immune mechanism; Z68.41 Body mass index [BMI] 40.0-44.9, adult; X58.XXXA Exposure to other specified factors, initial encounter
CPT/HCPCS: 20680; 27632; 28088; 28090; 28120; 64704; 73610; 73620; 73630; 80053; 81025; 85025; 85651; 87070; 87205; 96374; J0690; J1100; J1580; J2003; J2175; J2250; J2405; J2704; J3010; J7030; J7120; Q4173

== ENCOUNTER 2025-09-09 21:00 | Emergency (ER) | payer BC, SELFPAY ==
--- OUTSIDE RECORDS SUMMARY | 2024-12-29 04:45 | XMS_ITS ---
Author Organization [facility] Address [address] [place] [id number] Care Team Providers Care Level Glass Vial Filler Name Role Phone Johnathan Duenas Primary Care Provider [phone] Radha Awad Unavailable [phone] Allergies No Known Allergies Results Component Value Reference Range Notes CBC Venipuncture (in house) Reviewed date:12/30/2024 09:22:03 AM Interpretation: Performing Lab: Notes/Report: wbc 5.3 3.5 - 10 lymph 28.3% 15 - 50 mid 5.9% 2 - 15 gran 65.8% 35 - 80 rbc 4.56 3.5 - 5.5 hgb 13.9 11.5 - 16.5 hct 40.2 35 - 55 mcv 88.1 75 - 100 mch 30.6 25 - 35 mchc 34.7 31 - 38 platlet 208 100 - 400 P-Comprehensive Metabolic Pa helio (CMP) Reviewed date:01/05/2025 01:01:13 PM Interpretation:Normal Performing Lab: Notes/Report: Test performed by [facility], [employer] [address] [place] [address] , [address], [place] [address] Nick Brady MD, Cloth Classer CLIA: [id number] Sodium 141 135-145 mmol/L Potassium 4.2 3.5-5.3 mmol/L Chloride 104 97-108 mmol/L CO2 24 22-32 mmol/L Glucose 83 65-99 mg/dL BUN 12 6-20 mg/dL Creatinine 0.64 0.50-1.00 mg/dL Calcium 9.4 8.6-10.4 mg/dL eGFR by Creatinine 124 >59 mL/min/1.73m2 Protein 7.8 6.0-8.3 g/dL Albumin 4.6 3.5-5.3 g/dL Alkaline Phosphatase 83 35-121 IU/L ALT (SGPT) 44 <5-47 IU/L AST (SGOT) 21 <5-40 IU/L Bilirubin, Total 0.7 <0.2-1.2 mg/dL A/G Ratio 1.4 1.1-2.5 P-Arthritis Panel, [facility] Reviewed date:01/05/2025 01:01:14 PM Interpretation:CRP 0.71 Performing Lab: Notes/Report: Test performed by [facility] [address] [place] [address] , [address], [place] [address] Nick Brady MD, Cloth Classer CLIA: [id number] Erythrocyte Sedimentation Rate (ESR), Automated 11 <26 mm/hr Rheumatoid Factor 12.0 <14.1 IU/mL C-Reactive Protein (CRP) 0.71 <0.50 mg/dL Antinuclear Antibodies (LATRICIA) Screen, Reflex LATRICIA 9 Panel Negative Negative This test is performed by Multiplex Bead Immunoassay methodology. Antinuclear Antibodies (LATRICIA) Result Note SEE COMMENT For positive Autoantibodies, please refer to the interpretive chart here: [email or web address] CCP Antibodies <0.5 <0.5-3.0 U/mL P-T4 Free (thyroxine) Reviewed date:01/05/2025 01:01:14 PM Interpretation:Normal Performing Lab: Notes/Report: Test performed by [facility] [address] [place] [address] , [address], [place] [address] Nick Brady MD, Cloth Classer CLIA: [id number] Thyroxine Free (free T4) 1.50 0.86-1.76 ng/dL P-Thyroid Antibody Panel (TA BS) Reviewed date:01/05/2025 01:01:14 PM Interpretation:Normal Performing Lab: Notes/Report: Test performed by [facility] [address] [place] [address] , [address], [place] [address] Nick Brady MD, Cloth Classer CLIA: [id number] Thyroid Peroxidase Antibody 17 <9-34 IU/mL An elevated Thyroid Peroxidase Antibody should not be used alone to make the diagnosis of autoimmune thyroid disease. A result of <34 IU/mL does not definitively rule out the possibility of autoimmune thyroid disease. Thyroglobulin Antibody 55.6 <10-115.0 IU/mL The test is performed by the Stefan ECLIA methodology. Values obtained with different assay methods or kits cannot be directly compared. P-TSH Reviewed date:01/05/2025 01:01:14 PM Interpretation:0.17 Performing Lab: Notes/Report: Test performed by [facility] [address] , [address], [place] [address] Nick Brady MD, Cloth Classer CLIA: [id number] TSH 0.17 0.43-5.25 mU/L xultrasound : thyroid Reviewed date:01/05/2025 01:01:13 PM Interpretation:homogenous thyroid Performing Lab: Notes/Report: homogenous thyroid REASON FOR VISIT fatigue, hair falling out, palpitations Medications Medication SIG (Take, Route, Fr equency, Duration) Notes Start Date End Date Status Vilazodone HCl 10 MG 1 tablet with food Orally Once a day; Duration: 30 day(s) Active busPIRone HCl 10 MG 1 tablet Orally Twice a day Active Valtrex 1 GM 1 tablet Orally Thre e times a day; Duration: 7 days 11/15/2024 Active Vitamin Act ramakrishna Nystatin 091931 UNIT/GM 1 application Ex ternally Twice a day 12/29/2024 Active Problems Problem Type SNOMED Code ICD Code Onset Dates Problem Status W/U Status Risk Notes Problem Thyromegaly (5025037) Thyromegaly (E01.0) Active confirmed Vital Signs Blood pressure systolic 104 mm Hg 12/30/19 25 Blood pressure diastolic 70 mm Hg 025 Heart Rate 73 /min 12/29/2024 Height 61.5 in 12/29/2024 Weight 219.6 lbs 12/29/2024 BMI 40.82 kg/m2 12/29/2024 Encounters Encounter Location Date Provider Diagnosis [facility] [address] [place] [id number] 12/29/2024 Radha Awad Myalgia M79.10 ; Arthralgia, unspecified joint M25.50 ; Heart palpitations R00.2 ; Hair loss L65.9 ; Other fatigue R53.83 ; Elevated liver enzymes R74.8 ; Thyromegaly E01.0 and Rash R21 Assessments Encounter Date Diagnosis (ICD Code) Assessment Notes Treatment Notes Treatment Clinical Notes Section Notes 12/29/2024 Myalgia (ICD-10 - M79.10) 12/29/2024 Arthralgia, unspecified joint (ICD-10 - M25.50) 12/29/2024 Heart palpitations (ICD-10 - R00.2) 12/29/2024 Hair loss (ICD-10 - L65.9) 12/29/2024 Other fatigue (ICD-10 - R53.83) 12/29/2024 Elevated liver enzymes (ICD-10 - R74.8) 12/29/2024 Thyromegaly (ICD-10 - E01.0) 12/29/2024 Rash (ICD-10 - R21) Plan Of Treatment Medication Medication Name Sig Start Date Stop Date Notes Nystatin 948768 UNIT/GM 1 application Ex ternally Twice a day 12/29/2024 Next Appt Details Follow Up: via phone to repo rt test results, Reason: Progress Notes * MOHAN GODINEZHIRALOB:1995 (29 yo F)Acc No.[id number]:12/29/2024 Progress Notes Patient: ISABELA HELMS Provider: FLORENCIA Palomino :1995 A ge:29 Y S ex:Female Date:12/29/2024 Address:[address] [place], [place] [phone] Pcp:Johnathan Duenas Subjective: * Chief Complaints: * 1 . Fatigue, hair falling out, palpitations. * HPI: C ardiology: The pt is here today with c/o palpitations, hair loss and fatigue. She also has muscle and joint pain and was told she had an autoimmune issue when she was younger but does not know what it was. Pt states she saw Cardiology and they recommended she see her PCP to have her thyroid checked. Pt states she also has a rash in the right axilla for about 2 weeks. Pt states she has tried a new deodorant and has had a lot of sweats. 29 year old female presents with c/o Palpitations. Denies : Chest Pain. D enies : Short of Breath. D enies : Dizziness. * ROS: D ERMATOLOGY: no R bri. n o H david. G ASTROENTEROLOGY: no N ausea. n o V omiting. n o D iarrhea.? U ROLOGY: no D ifficulty urinating. n o B lood in urine. * 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: A llergic Rhinitis, Peptic Ulcer Disease, Hypertension, Depression. * Surgical History: T onsillectomy 1999, Bilateral Ankles 2018, Cholecystectomy 2016, [place] Teeth 2013, D & C 2019, Tubal Ligation 2024. * Family History: F ather: alive, diagnosed with Cancer. M other: , diagnosed with Hypertension, Cancer. * 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: C URRENT TOBACCO USE: No . C affeine: yes, coffee,tea,soft drinks 10-12 cups a day. Marital Status: . Alcohol: no. * Medications: T aking Vilazodone HCl 10 MG Tablet 1 tablet with food Orally Once a day , Taking busPIRone HCl 10 MG Tablet 1 tablet Orally Twice a day , Taking Vitamin , Taking Valtrex 1 GM Tablet 1 tablet Orally Three times a day , Medication List reviewed and reconciled with the patient * Allergies: N .K.D.A. Objective: * Vitals: W t:219.6, Temp:97.9, BP:104/70, HR:73, Nurse:LEIGH, Ht: 61.5, BMI:40.82. * Examination: G eneral Examination: General Appearance: N AD. H EENT: u nremarkable.?Oral cavity: n o lesions, mucosa moist and WNL, no erythema. N amarilis: s upple, no lymphadenopathy, thyroid mildly enlarged and tender. C hest: n ormal shape and expansion. H eart: R SR. L ungs: c lear to auscultation. A bdomen: bowel sounds present, soft and nontender, no organomegaly or masses, no guarding or rigidity, no masses palpated. N eurologic Exam: I ntact, gait normal. S kin: n ormal, erythematous rash under the right axilla, pruritic. P eripheral pulses: n ormal (2+) bilaterally. E xtremities: n o leg edema. Assessment: * Assessment: 1. M yalgia - M79.10 (Primary) 2 . A rthralgia, unspecified joint - M25.50? 3. H eart palpitations - R00.2 4 . H air loss - L65.9 ? 5 . O ther fatigue - R53.83 6 . E levated liver enzymes - R74.8 7. T hyromegaly - E01.0 8 . R bri - R21 S pecify :right axilla Plan: * Treatment: Value Reference Range A ntinuclear Antibodies (LATRICIA) Result Note SEE COMMENT - * A ntinuclear Antibodies (LATRICIA) Screen, Reflex LATRICIA 9 Panel Negative Negative - * C CP Antibodies <0.5 <0.5-3.0 - U/mL * C -Reactive Protein (CRP) 0.71 H <0.50 - mg/dL * E rythrocyte Sedimentation Rate (ESR), Automated 11 <26 - mm/hr * R heumatoid Factor 12.0 <14.1 - IU/mL * Radha Awad 01/05/2025 1: 01:07 PM > see TE ?LAB: P-Thyroid Antibody Panel (TABS) (Collection Date & Time - 12/29/2024 09:35 AM)?Normal* Value Reference Range T hyroid Peroxidase Antibody 17 <9-34 - IU/mL * T hyroglobulin Antibody 55.6 <10-115.0 - IU/mL * Radha Awad 01/05/2025 1: 01:07 PM > see TE 2.?Arthralgia, unspecified joint?LAB: P-Arthritis Panel, [facility] (Collection Date & Time - 12/29/2024 09:35 AM)?CRP 0.71* Value Reference Range A ntinuclear Antibodies (LATRICIA) Result Note SEE COMMENT - * A ntinuclear Antibodies (LATRICIA) Screen, Reflex LATRICIA 9 Panel Negative Negative - * C CP Antibodies <0.5 <0.5-3.0 - U/mL * C -Reactive Protein (CRP) 0.71 H <0.50 - mg/dL * E rythrocyte Sedimentation Rate (ESR), Automated 11 <26 - mm/hr * R heumatoid Factor 12.0 <14.1 - IU/mL * Radha Awad 01/05/2025 1: 01:07 PM > see TE ?LAB: P-Thyroid Antibody Panel (TABS) (Collection Date & Time - 12/29/2024 09:35 AM)?Normal* Value Reference Range T hyroid Peroxidase Antibody 17 <9-34 - IU/mL * T hyroglobulin Antibody 55.6 <10-115.0 - IU/mL * Radha Awad 01/05/2025 1: 01:07 PM > see TE ?LAB: CBC Venipuncture (in house) (Collection Date & Time - 12/29/2024)* Value Reference Range w bc 5.3 3.5 - 10 * l ymph 28.3% 15 - 50 * m id 5.9% 2 - 15 * g ran 65.8% 35 - 80 * r bc 4.56 3.5 - 5.5 * h gb 13.9 11.5 - 16.5 * h ct 40.2 35 - 55 * m cv 88.1 75 - 100 * m ch 30.6 25 - 35 * m chc 34.7 31 - 38 * p latlet 208 100 - 400 * Joann Cheema 12/29/2024 10:5 1:38 AM >Radha Awad 12/30/2024 9:22:01 AM > 3.?Heart palpitations?LAB: P-T4 Free (thyroxine) (Collection Date & Time - 12/29/2024 09:35 AM)? Normal* Value Reference Range T hyroxine Free (free T4) 1.50 0.86-1.76 - ng/d L * Radha Awad 01/05/2025 1: 01:07 PM > see TE ?LAB: P-TSH (Collection Date & Time - 12/29/2024 09:35 AM)?0.17* Value Reference Range T SH 0.17 L 0.43-5.25 - mU/L * Radha Awad 01/05/2025 1: 01:07 PM > see TE 4.?Hair loss?LAB: P-Thyroid Antibody Panel (TABS) (Collection Date & Time - 12/29/2024 09:35 AM)?Normal* Value Reference Range T hyroid Peroxidase Antibody 17 <9-34 - IU/mL * T hyroglobulin Antibody 55.6 <10-115.0 - IU/mL * Radha Awad 01/05/2025 1: 01:07 PM > see TE 5.?Elevated liver enzymes?LAB: P-Comprehensive Metabolic Panel (CMP) (Collection Date & Time - 12/29/2024 09:35 AM)?Normal* Value Reference Range A /G Ratio 1.4 1.1-2.5 - * A lbumin 4.6 3.5-5.3 - g/dL * A lkaline Phosphatase 83 35-121 - IU/L * A LT (SGPT) 44 <5-47 - IU/L * A ST (SGOT) 21 <5-40 - IU/L * B ilirubin, Total 0.7 <0.2-1.2 - mg/dL * B UN 12 6-20 - mg/dL * C alcium 9.4 8.6-10.4 - mg/dL * C hloride 104 97-108 - mmol/L * C O2 24 22-32 - mmol/L * C reatinine 0.64 0.50-1.00 - mg/dL * G lucose 83 65-99 - mg/dL * P otassium 4.2 3.5-5.3 - mmol/L * S odium 141 135-145 - mmol/L * P rotein 7.8 6.0-8.3 - g/dL * e GFR by Creatinine 124 >59 - mL/min/1.73m2 * Radha Awad 01/05/2025 1: 01:07 PM > see TE 6.?Thyromegaly?Imaging: xultrasound : thyroid (Performed Date - 01/03/2025)?homogenous thyroid* Radha Awad 12/29/2024 10: 25:31 AM >Zuleyka Lin 12/29/2024 12:04:39 PM > no auth required; CPT code 52912; faxed to [facility] Scheduling Radha Awad 01/05/2025 1:01:07 PM > see TE 7.?Rash? Start Nystatin Cream, 819886 UNIT/GM, 1 application, Externally, Twice a day, 60 grams, Refills 1. ? * Procedure Codes: 8 5025 CBC WITH AUTO DIFF, 31449 VENIPUNCT, ROUTINE*, 3074F SYST BP LT 130 MM HG, 3078F DIAST BP < 80 MM HG * Follow Up: v ia phone to report test results * Images: Billing Information: * Visit Code: 86088 Office Visit, Est Pt., Level 4. * Procedure Codes: 79169 CBC WITH AUTO DIFF. 18321 VENIPUNCT, ROUTINE*. 3074F SYST BP LT 130 MM HG. 3078F DIAST BP < 80 MM HG. * Electronic signature of FLORENCIA Galloway on 09/09/2025 at 09:54 PM EST Sign off status: Pending * Provider: FLORENCIA Palomino Date: 0 12/29/2024 Generated for Printi ng/Fawoodyg/eTransmitting on: 1 11/09/2024 09:54 PM EST History and Physical Notes * HPI (History of Present Illness) Category Sub-Category Detail Notes Category Not es Cardiology Short of Breath Chest Pain Palpitations Dizziness Examination Category Sub-Category Detail Notes Category Not es General Examination HEENT: unremarkable Heart: RSR Lungs: clear to auscultatio n Abdomen: bowel sounds present , soft and nontender, no organomegaly or masses, no guarding or rigidity, no masses palpated Extremities: no leg edema General Appearance: NAD Skin: normal, erythematous rash under the right axilla, pruritic Neurologic Exam: Intact, gait normal Neck: supple, no lymphaden opathy, thyroid mildly enlarged and tender Oral cavity: no lesions, mucosa m oist and WNL, no erythema Peripheral pulses: normal (2+) bilatera lly Chest: normal shape and exp ansion
--- OUTSIDE RECORDS SUMMARY | 2025-01-26 09:15 | XMS_ITS ---
Author Organization [facility] Address [address] [facility] [address] [place] [id number] Care Team Providers Care Molding Press Operator Name Role Phone Johnathan Duenas Primary Care Provider [phone] Allergies No Known Allergies Results Component Value Reference Range Notes P-T4 Free (thyroxine) Reviewed date:01/27/2025 02:33:57 PM Interpretation:2.1 Performing Lab: Notes/Report: CLIA: [id number] Nick Brady MD, Diagnostic Cardiac Sonographer [address] [place] [address] , [address], [place] [address] Test performed by [facility] Thyroxine Free (free T4) 2.10 0.86-1.76 ng/dL P-Total T3 Reviewed date:01/27/2025 02:33:57 PM Interpretation:Normal Performing Lab: Notes/Report: Test performed by [facility] [address] [place] [address] [address], [place] [address] Nick Brady MD, Diagnostic Cardiac Sonographer CLIA: [id number] Total T3 1.98 0.80-2.00 ng/mL P-TSH Reviewed date:01/27/2025 02:33:57 PM Interpretation:0.01 Performing Lab: Notes/Report: Test performed by [facility] [address] [place] [address] , [address], [place] [address] Nick Brady MD, Diagnostic Cardiac Sonographer CLIA: [id number] TSH 0.01 0.43-5.25 mU/L REASON FOR VISIT [...] 01/26/2025 Encounters Encounter Location Date Provider Diagnosis [facility] [address] [place] [id number] 01/26/2025 Johnathan Duenas Low TSH level R79.89 [...] Notes * MOHAN GODINEZHIRALOB:1995 (29 yo F)Acc No.[id number]:01/26/2025 Progress Notes Patient: ISABELA HELMS Provider: Ramesh Duenas M.D. :1995 A ge:29 Y S ex:Female Date:01/26/2025 Address:[facility] [id number] Subjective: * Chief Complaints: * 1 . [...] onsillectomy 1999, Bilateral Ankles 2018, Cholecystectomy 2016, [place] Teeth 2013, D & C 2019, Tubal [...] Three times a day , Discontinued Nystatin 585097 UNIT/GM Cream 1 application Externally Twice a [...] * Images: Billing Information: * Visit Code: 25418 Office Visit, Est Pt., Level 3. * Procedure Codes: 3074F SYST BP LT 130 MM HG. 3078F DIAST BP < 80 MM HG. * Electronic signature of Sharda Duenas MD on 09/09/2025 at 09:53 PM EST Sign off status: Pending * Provider: Ramesh Duenas M.D. Date: 0 01/26/2025 Generated for Reggie stone/Leslie/eTyanirasmitting on: 1 11/09/2024 09:53 PM EST History and Physical Notes * [...]
--- OUTSIDE RECORDS SUMMARY | 2025-02-10 06:00 | XMS_ITS ---
Author [facility] Address [address] [place] [id number] Care Team Providers Care Supervisor Cutting Department Name Role Phone Johnathan Duenas Primary Care Provider Radha Awad Unavailable [phone] Allergies No Known Allergies Results Component Value [...] [address] [place] [id number] 02/10/2025 Radha Awad Acute otitis media, right [...] Notes * JOYCELYN GODINEZOB:1995 (29 yo F)Acc No.[id number]:02/10/2025 Progress Notes Patient: ISABELA HELMS Provider: FLORENCIA Palomino :1995 A ge:29 Y S ex:Female Date:02/10/2025 Address[facility] Pcp:Johnathan Duenas Subjective: * Chief Complaints: * [...] onsillectomy 1999, Bilateral Ankles 2018, Cholecystectomy 2016, [place] Teeth 2013, D & C 2019, Tubal [...] STREP A ASSAY W/OPTIC, Modifiers: QW , 49622 CAPILLARY BLOOD DRAW, 77828 CBC WITH AUTO DIFF * Follow Up: v ia phone to report progress * Images: Billing Information: * Visit Code: 72720 Office Visit, Est Pt., Level 3. * Procedure Codes: 65191 STREP A ASSAY W/OPTIC. Modifiers: QW 59176 CAPILLARY BLOOD DRAW. 15485 CBC WITH AUTO DIFF. * Electronic signature of FLORENCIA Galloway on 09/09/2025 at 09:55 PM EST Sign off status: Pending * Provider: FLORENCIA Palomino Date: 0 02/10/2025 Generated for Reggie stone/Leslie/Bill on: 1 11/09/2024 09:55 PM EST History and Physical Notes * [...]
--- OUTSIDE RECORDS SUMMARY | 2025-02-18 09:00 | XMS_ITS ---
Author Organization [facility] Address 1210 [facility] [address] [place] [id number] Care Team Providers Care Book Or Script Editor Name Role Phone Johnathan Duenas Primary Care [...] Status W/U Status Risk Notes Problem Hyperthyroidism (60349901) Hyperthyroidism (E05.90) Active confirmed Vital Signs Blood pressure systolic 110 mm Hg 02/19/20 25 Blood pressure diastolic 70 mm Hg 025 Heart Rate 80 /min 02/18/2025 Height 61.5 in 02/18/2025 Weight 218.8 lbs 02/18/2025 BMI 40.67 kg/m2 02/18/2025 Encounters Encounter Location Date Provider Diagnosis [facility] [address] [place] [id number] 02/18/2025 Johnathan Duenas Acute diarrhea R19.7 and [...] Notes * JOYCELYN GODINEZOB:1995 (29 yo F)Acc No.[id number]:02/18/2025 Progress Notes Patient: ISABELA HELMS Provider: Ramesh Duenas M.D. :1995 A ge:29 Y S ex:Female Date:02/18/2025 Address:[place], [id number] Subjective: * Chief Complaints: * 1 . [...] onsillectomy 1999, Bilateral Ankles 2018, Cholecystectomy 2016, [place] Teeth 2013, D & C 2019, Tubal [...] * Images: Billing Information: * Visit Code: 56638 Office Visit, Est Pt., Level 3. * Procedure Codes: 3074F SYST BP LT 130 MM HG. 3078F DIAST BP < 80 MM HG. * Electronic signature of Sharda Duenas MD on 09/09/2025 at 09:55 PM EST Sign off status: Pending * Provider: Ramesh Duenas M.D. Date: 0 02/18/2025 Generated for Reggie stone/Leslie/Bill on: 11/09/2024 09:55 PM EST History and Physical [...]
--- OUTSIDE RECORDS SUMMARY | 2025-03-18 09:30 | XMS_ITS ---
Author Organization [facility] Address [address] [place] [phone] Care Team Providers Care Commercial Property Administrator Name Role Phone Johnathan Duenas Primary Care Provider [phone] REASON FOR VISIT fu blood work for thyroid Encounters Encounter Location Date Provider Diagnosis [facility] [address] [place] [phone] 03/18/2025 Johnathan Duenas Plan Of Treatment No Information Progress Notes * MOHAN GODINEZHIRALOB:1995 (29 yo F)Acc No.[id number]:03/18/2025 Patient: ISABELA HELMS Provider: Ramesh Duenas M.D. :1995 A ge:29 Y S ex:Female Date:03/18/2025 Address:[address] [place], [place] Subjective: * Chief Complaints: * 1 . Fu blood work for thyroid. * 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: Objective: * Vitals: Assessment: Plan: * Treatment: * Images: Billing Information: * Visit Code: * Procedure Codes: * Electronic signature of Sharda Duenas MD on 09/09/2025 at 09:55 PM EST Sign off status: Pending * Provider: Ramesh Duenas M.D. Date: 03/18/2025 Generated for Reggie stone/Leslie/Bill on: 11/09/2024 09:55 PM EST
--- OUTSIDE RECORDS SUMMARY | 2025-05-11 10:00 | XMS_ITS ---
Author Organization [facility] Address [address] [facility] [address] [place] [id number] Care Team Providers Care Wire Worker Name Role Phone Johnathan Duenas Primary Care Provider [phone] Allergies No Known Allergies Results Component Value [...] Interpretation:Normal Performing Lab: Notes/Report: Test performed by [facility] [address] [place], [place] [address] , [address], [place] [address] Nick Brady MD, Service Clerk CLIA: [id number] Amylase 42 28-100 U/L P-Antistreptolysin O AB Reviewed date:05/13/2025 09:49:59 AM Interpretation:Normal Performing Lab: Notes/Report: Test performed by [facility] [address] [place], [place] [address] , [address], [place] [address] Nick Brady MD, Service Clerk CLIA: [id number] Antistreptolysin O AB 175.0 <20-200.0 IU/mL P-Comprehensive Metabolic Pa helio (CMP) Reviewed date:05/13/2025 09:49:59 AM Interpretation:bili 1.4 Performing Lab: Notes/Report: Test performed by [facility] [address] [place] [address] , [place] [address] Nick Brady MD, Service Clerk CLIA: [id number] Sodium 137 135-145 mmol/L Potassium 4.1 3.5-5.3 [...] Interpretation:Reactive Performing Lab: Notes/Report: Test performed by [facility] [address] [place] [address] [place] [address] Nick Brady MD, Service Clerk CLIA: [id number] Cytomegalovirus (CMV) Antibody, IgG Reactive Non-Reactive This [...] >8 Performing Lab: Notes/Report: Test performed by [facility] [address] [place] [address] , [address], [place] [address] Nick Brady MD, Service Clerk CLIA: [id number] Deidre Dewey Virus (EBV) VCA Antibodies IgG >8.0 <0.9 AI Deidre Dewey Virus (EBV) VCA Antibodies IgM 0.3 <0.9 AI P-Sed Rate (ESR) Reviewed date:05/13/2025 09:50:00 AM Interpretation:Normal Performing Lab: Notes/Report: Test performed by [facility] [address] , [address], [place] [address] Nick Brady MD, Service Clerk CLIA: [id number] Erythrocyte Sedimentation Ra te (ESR), Automated 18 <26 mm/hr P-Lipase Reviewed date:05/13/2025 09:50:00 AM Interpretation:Normal Performing Lab: Notes/Report: Test performed by [facility] [employer] [address] [place] [address] , [address], [place] [address] Nick Brady MD, Service Clerk CLIA: [id number] Lipase 19.8 13.0-60.0 U/L REASON FOR VISIT 6 months Medications Medication SIG (Take, Route, Fr equency, Duration) Notes Start Date End Date Status Multi Vitamin - 1 tablet Orally Once a day; Duration: 30 day(s) Active Nystatin 307872 UNIT/GM 1 application Ex ternally Twice a [...] Status W/U Status Risk Notes Problem Thrombocytopenia (046789901) Thrombocytopenia (D69.6) Active confirmed Vital Signs Blood pressure systolic 110 mm Hg 05/11/20 25 Blood pressure diastolic 70 mm Hg 025 Heart Rate 80 /min 05/11/2025 Height 61.5 in 05/11/2025 Weight 221 lbs 05/11/2025 BMI 41.08 kg/m2 05/11/2025 Encounters Encounter Location Date Provider Diagnosis [facility] [address] [place], [place] [id number] 05/11/2025 Johnathan Duenas Fever, unspecified R 50.9 [...] Sig Start Date Stop Date Notes Nystatin 078900 UNIT/GM 1 application Ex ternally Twice a day 05/11/2025 Omeprazole 40 MG 1 capsule 1/2 to 1 h our before morning meal Orally Once a day; Duration: 30 days 05/11/2025 Next Appt Details Follow Up: via phone to repo rt progress, Reason: Progress Notes * JOYCELYN GODINEZOB:1995 (29 yo F)Acc No.[id number]:05/11/2025 Progress Notes Patient: MOHAN HELMSNE Provider: Ramesh Duenas M.D. :1995 A ge:29 Y S ex:Female Date:05/11/2025 Address:[place], [id number] Subjective: * Chief Complaints: * 1 . [...] pain. Pt [place] [facility] [place] [...] onsillectomy 1999, Bilateral Ankles 2018, Cholecystectomy 2016, [place] Teeth 2013, D & C 2019, Tubal [...] phone encounter 6.?Skin rash? Start Nystatin Cream, 750892 UNIT/GM, 1 application, Externally, Twice a day, 30 grams, Refills 1. ? * Procedure Codes: 8 5025 CBC WITH AUTO DIFF, 14086 STREP A ASSAY W/OPTIC, Modifiers: QW , 1036F TOBACCO NON-USER, 3074F SYST BP LT 130 MM HG, 3078F DIAST BP < 80 MM HG * Follow Up: v ia phone to report progress * Images: Billing Information: * Visit Code: 67420 Office Visit, Est Pt., Level 4. * Procedure Codes: 35755 CBC WITH AUTO DIFF. 79564 STREP A ASSAY W/OPTIC. Modifiers: QW 1036F TOBACCO NON-USER. 3074F SYST BP LT 130 MM HG. 3078F DIAST BP < 80 MM HG. * Electronic signature of Sharda Duenas MD on 09/09/2025 at 09:54 PM EST Sign off status: Pending * Provider: Ramesh Duenas M.D. Date: 0 05/11/2025 Generated for Printi ng/Fawoodyg/eTransmitting on: 1 11/09/2024 09:54 PM EST History and Physical Notes * HPI (History of Present Illness) Category Sub-Category Detail Notes Category Not es ENT/respiratory sore throat Pt complains of sore throat for over a month. Associated with fever, nausea and stomach pain. Pt states she did [place] [facility] [place] [...]
--- OUTSIDE RECORDS SUMMARY | 2025-05-31 10:45 | XMS_ITS ---
Author Organization [facility] Address [address] [facility] [address] [place] [phone] Care Team Providers Care Insurance Defense Attorney Name Role Phone Johnathan Duenas Primary Care Provider Results Component Value Reference Range Notes CBC Fingerstick (in house) Reviewed date:06/02/2025 12:07:20 PM Interpretation:satisfactory Performing Lab: Notes/Report: satisfactory wbc 6.0 3.5 - 10 lym 44.0% 15 - 50 mid 7.3% 2 - 15 gran 48.7% 35 - 80 rbc 4.19 3.5 - 5.5 hgb 12.4 11.5 - 16.5 hct 37.0 35 - 55 mcv 88.3 75 - 100 mch 29.7 25 - 35 mchc 33.6 31 - 38 plat 186 100 - 400 REASON FOR VISIT lab draw Encounters Encounter Location Date Provider Diagnosis [place] [address] [facility] [address] [place] [id number] 05/31/2025 Johnathan Duenas Thrombocytopenia D69 .6 Assessments Encounter Date Diagnosis (ICD Code) Assessment Notes Treatment Notes Treatment Clinical Notes Section Notes 05/31/2025 Thrombocytopenia (ICD-10 - D69.6) Plan Of Treatment No Information Progress Notes * GRETCHENMOHAN SOTOMAYORHIRALOB:1995 (29 yo F)Acc No.[id number]:05/31/2025 Patient: ISABELA HELMS Provider: Ramesh Duenas M.D. :1995 A ge:29 Y S ex:Female Date:05/31/2025 Address:[address] [id number] Subjective: * Chief Complaints: * 1 . Lab draw. * 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: Objective: * Vitals: Assessment: * Assessment: 1. T hrombocytopenia - D69.6 (Primary) Plan: * Treatment: * Labs: * L ab: CBC Fingerstick (in house) (Collection Date & Time - 05/31/2025) s atisfactory Value Reference Range w bc 6.0 3.5 - 10 * l ym 44.0% 15 - 50 * m id 7.3% 2 - 15 * g ran 48.7% 35 - 80 * r bc 4.19 3.5 - 5.5 * h gb 12.4 11.5 - 16.5 * h ct 37.0 35 - 55 * m cv 88.3 75 - 100 * m ch 29.7 25 - 35 * m chc 33.6 31 - 38 * p lat 186 100 - 400 * Joann Cheema 05/31/2025 03: 40:23 PM EDT >Vika Zendejas 06/02/2025 12:07:00 PM EDT > Pt informed * Procedure Codes: 3 6416 CAPILLARY BLOOD DRAW, 64533 CBC WITH AUTO DIFF * Images: Billing Information: * Visit Code: * Procedure Codes: 26589 CAPILLARY BLOOD DRAW. 96900 CBC WITH AUTO DIFF. * Electronic signature of Sharda Duenas MD on 09/09/2025 at 09:55 PM EST Sign off status: Pending * Provider: Ramesh Duenas M.D. Date: 0 05/31/2025 Generated for Reggie stone/Leslie/Bill on: 11/09/2024 09:55 PM EST
--- OUTSIDE RECORDS SUMMARY | 2025-08-17 10:25 | XMS_ITS ---
Author Organization [facility] Address [address] [facility] [address] [place] [id number] Care Team Providers Care Prototype Technician Name Role Phone Johnathan Duenas Primary Care Provider [phone] Results Component Value Reference Range Notes P-T4 Free (thyroxine) Reviewed date:08/18/2025 02:54:03 PM Interpretation:Normal Performing Lab: Notes/Report: CLIA: [id number] Nick Brady MD, Client Support Associate [address] [place] [address] , [address], [place] [address] Test performed by [employer] Thyroxine Free (free T4) 1.09 0.86-1.76 ng/dL P-Total T3 Reviewed date:08/18/2025 02:54:12 PM Interpretation:Normal Performing Lab: Notes/Report: Test performed by [employer] [address] [place] [address] , [address], [place] [address] Nick Brady MD, Client Support Associate CLIA: [id number] Total T3 1.31 0.80-2.00 ng/mL P-TSH Reviewed date:08/18/2025 02:54:22 PM Interpretation:Normal Performing Lab: Notes/Report: Test performed by [facility] [address] [place] [address] , [address], [place] [address] Nick Brady MD, Client Support Associate CLIA: [id number] TSH 2.59 0.43-5.25 mU/L REASON FOR VISIT labs Medications Medication SIG (Take, Route, Fr equency, Duration) Notes Start Date End Date Status Ketoconazole 2 % 1 application Retail Marketing Specialist ally Once a day 05/20/2025 Active Ondansetron [...] Encounter Location Date Provider Diagnosis [facility] [address] [place] [phone] 08/17/2025 Johnathan Duenas Hyperthyroidism E05. 90 Assessments Encounter Date Diagnosis (ICD Code) Assessment Notes Treatment Notes Treatment Clinical Notes Section Notes 08/17/2025 Hyperthyroidism (ICD-10 - E05.90) Plan Of Treatment No Information Progress Notes * JOYCELYN GODINEZOB:1995 (29 yo F)Acc No.[id number]:08/17/2025 Patient: ISABELA HELMS Provider: Ramesh Duenas M.D. :1995 A ge:29 Y S ex:Female Date:08/17/2025 Address:[address] [place], [place] [address] Subjective: * Chief Complaints: * 1 . [...] M.D. Date: Generated for Reggie stone/Leslie/Morrisitting on: 11/09/2024 09:53 PM EST
--- OUTSIDE RECORDS SUMMARY | 2025-09-09 21:54 | XMS_ITS | Clinical Summary ---
Author Organization [facility] Address [address] [place] [address] Care Team Providers Care Distilling Department Supervisor Name Role Phone Provider, No Known Primary [...] such, I have scheduled Ms Cisneros with [facility] for possible PUBS/IUT procedure tomorrow. She will be at their ultrasound unit tomorrow at 0800. D/w Dr Marry Vogt. Records faxed. Follow up with [facility] BHLex TBD Dysmenorrhea 04/21/2023 Intrahepatic cholestasis [...] Date Recorded Retired Total Score 14 07/16/2021 [facility] of Occupat ional Health - Occupational Stress [...] things needed for daily living? No 11/13/2020 Schoenchen Depression Scale Answer Date Recorded Sch[place] Depression Scale Total 5 06/05/2021 The thought [...] Lab Report [facility] [address] [place] [address] or [phone] Wong Wall M.D., Drafting Technician PATIENT NAME LABORATORY NO. ISABELA CARDOSO [id number] AGE SEX SSN CLIENT REF # [facility] 25 1995 F [id number] [address] TR[address]TER REQUESTING Edis [place] [address] ALCIRA ORTIZ DATE COLLECTED DATE RECEIVED DATE [...] of chlamdial and gonococcal disease using the [place] system. ENDOSCOPIC TECHNICIAN: LEXI SAUCEDA (ASCP) CPT CODES: 25886, 49611, 12369 04/08/2023 2:46 PM EDT [facility] ThinPrep Vial Cervix uteri structure / Unknown Collection / Unknown 04/07/2023 8:19 AM EDT 04/07/2023 8:19 AM EDT Alcira Ortiz MD PATHOLOGY/CYTOLOGY ORDER CALLUM Final Result [facility]
[address] [place] [address], * Obstetric Panel (11/13/2020 12:00 AM EST) Hepatitis B Surface Ag Negative Negative [facility] Hep C Virus Ab <0.1 0.0 - 0.9 s/co ratio [facility] Comment: Negative: < 0.8 Indeterminate: 0.8 - 0.9 Positive: > 0.9 The CDC recommends that a positive HCV antibody result be followed up with a HCV Nucleic Acid Amplification test (434858). RPR Non Reactive Non Reactive [facility] [...] x10E3/uL [facility] 11/13/2020 11/13/2020 Narrative [facility] (AMBULATORY) - 11/15/2020 6:09 AM EST Performed at: - [facility] [address] [place], [place] [id number] Radioisotope Technician: Micah Warner PhD, Phone: [phone] Alcira Ortiz MD LAB BLOOD ORDERABLES Fin al Result [facility] (AMBULATORY) [address] [place] [address], [facility] [address] [place] [address], from Last 3 Months or Most Recently Relevant to Health Maintenance Insurance [facility] PPO Advance Directives * CPR (Attempt to Resuscitate) (Latest Code Status on File) Date Activated Date Inactivated Comments 06/05/2021 6:00 AM 06/07/2021 4:15 PM Question Answer Comments Code Status (Patient has no pulse and is not breathing): CPR (Attempt to Resuscitate) Medical Interventions (Patie nt has pulse or is breathing): Full Care Teams Distilling Department Supervisor Relationship Specialty Start Date End Date Provider, No Known [facility] [address] PCP - General 12/04/20
--- OUTSIDE RECORDS SUMMARY | 2025-09-09 21:54 | XMS_ITS | Clinical Summary ---
Author Organization [facility] Address [address] [place] [address] Care Team Providers Care Admissions Supervisor Name Role Phone Johnathan Duenas MD Primary Care Provider [phone] Source Comments [facility] is fully rolled out with thefollowing exceptions:[facility] Allergies No known active allergies Medications [...] on 05/18/24. Jillian Cisneros was referred to [facility] on 05/18/[address] Casper for [...] (MRI, ultrasound) with pediatric surgery, neonatology and [facility] ~ 32 weeks gestation, week of [...] hydrops. - Normal MCA and UA Dopplers. [facility] PLAN OF CARE Jillian Cisneros was seen today in the [facility] for a diagnosis of [...] Labor (IOL) and a vaginal delivery at [facility] is anticipated at 39 weeks (if yours and Zac's health remains stable-which is routine OB standards); with a low threshold after 37 weeks Get set up with a business development consultant to work with to help your milk come in Does an amnio procedure need to be scheduled for this patient? No PATIENT TO BE SCHEDULED FOR FOLLOW UP WITHIN: No follow up at [facility] needed Problem Noted Date Diagnosed Date Parvovirus [...] topic Insurance FRANCES BAIG NON-TRADITIONAL Care Teams Admissions Supervisor Relationship Specialty Start Date End Date Johnathan Duenas MD [address] [place] [address] PCP - General External Family Practice 05/30/24
--- OUTSIDE RECORDS SUMMARY | 2025-09-09 21:54 | XMS_ITS | Encounter Summary ---
[facility] Organization [facility] Address [address] [place] [address] Care Team Providers Care Dairy Processing Equipment Operator Name Role Phone Provider, No Known Primary Care Provider Unavail able Reason for Visit * Reason Onset Date Comments Med Refill 10/27/2022 Encounter Details Date Type Department Care Team (Late st Contact Info) Description 10/27/2022 Refill [facility] [address] [place] [address] Henrique Barney MD [address] [facility] [address] [place] [address] 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 Tobacco Use Types Packs/Day Years [...] Date Recorded Retired Total Score 14 07/16/2021 [facility] [place] of Occupat ional Health - Occupational Stress [...] things needed for daily living? No 11/13/2020 Edgar Depression Scale Answer Date Recorded Edgar Depression Scale Total 5 06/05/2021 The thought [...] on filedocumented in this encounter Care Teams Dairy Processing Equipment Operator Relationship Specialty Start Date End Date Provider, No Known [facility] [place] [address] PCP - General 12/04/20 documented as of this encounter
--- OUTSIDE RECORDS SUMMARY | 2025-09-09 21:54 | XMS_ITS | Data Portability ---
Author Organization [facility] SIA Sellers [facility]IS[facility] CLOSED Address [address] [facility] [address] [place] [address] Assessment No assessment recorded. Plan of Treatment Reminders Order Date Submit Date Provider Last Modified By Organization Details Last Modified Time Details Appointments None recorded. Lab TSH, serum or plasma 2024 025 [facility], [address] [place] [address], [id number], 5 12:55:28 T4, free, serum 2024 025 [facility], [address] [place] [address], [id number], 5 12:55:29 T3, free, serum or plasma 2024 025 [facility], [address] [place] [address], [id number], 5 12:55:26 tsi (thyroid-st imulating immunoglobu gab), serum 2024 025 [facility], [address] [place] [address], [id number], 5 17:55:21 thyroid peroxidase (tpo) Ab, serum 2024 025 [facility], [address] [place] [address], [id number], 5 16:48:25 Referral None recorded. Procedures None recorded. Surgeries None recorded. Imaging None recorded. Medication Orders None recorded. Patient TargetsNo targets recorded. Patient InstructionsNo instructions recorded. Reason for Referral None Reported. Results Created Date Observation Date Name Description Value Unit Range Abnormal Flag Note LastModifiedBy Organization Detail LastModifiedTime 03/23/2003/23/2025 T3 FREE T3 free 3.00 pg/mL 2.00-4 .40 normal Not Available [facility] [address] [place] [address], [id number], 03/23/2025 12:55:26 03/23/20 25 03/23/2025 TSH TSH 0.019 u[IU] /mL 0.270- 4.200 low Not Available [facility] [address] [place] [address], [address], 03/23/2025 12:55:28 03/23/20 25 03/23/2025 T4,FR EE T4,free 1.14 NG/dL 0.93-1 .70 normal Not Available [facility] [address] [place] [address], [id number], 03/23/2025 12:55:29 03/23/20 25 03/24/2025 THYRO ID PEROX IDASE AB thyroid peroxidase Ab 1 IU/mL <9 normal Not Available [facility] [address] [place] [address], [id number], 03/24/2025 16:48:25 03/23/20 25 03/29/2025 THYRO ID STIMU LATIN G IGS thyroid stimulating igs <89 %_bas ghazal <140 normal Thyro id stimu latin g immun oglob ulins (TSI) can engag e the TSH veterinary receptionist tors resul ting in hyper thyro [...] for clini ana purpo ses. Not Available [facility] [address] [place] [address], [address], 03/29/2025 17:55:21 04/20/2004/20/2025 TSH TSH 1.070 u[IU] /mL 0.270- 4.200 normal Not Available [facility] [address] [place], [address], 04/20/2025 09:37:58 04/20/2004/20/2025 T4,FR EE T4,free 0.96 NG/dL 0.93-1 .70 normal Not Available [facility] [address] [place] [address], [phone], 04/20/2025 09:37:59 04/20/2004/20/2025 T3 FREE T3 free 2.93 pg/mL 2.00-4 .40 normal Not Available [facility] [address] [place], [address], 04/20/2025 09:38:01 04/01/20 25 01/03/2025 US, thyro id No observ ation record ed. [email or web address] Not Available 2024 08:24:49 Result Notes None [...] Address Organization Details Last Updated DateTime 03/23/2025 85630.6 g 41.5 kg/m2 154.94 cm 112/68 mm[Hg] [facility] 03/23/2025 11:18:55 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 None recorded. Functional Status None recorded. Mental Status None recorded. Family History Nothing Reported. 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 No medical history recorded. Gynecological HistoryNo gynecological history recorded. Obstetrics History GPAL:G 0 P 0 0 0 0 Past Encounters Encounter ID Performer Location Encounter Start Date Encounter Closed Date Diagnosis/Indication Diagnosis SNOMED-CT Code Diagnosis ICD10 Code Diagnosis IMO Codes Diagnosis Note [id number] STANISLAW LOVE APRN ENDOCRINO [address] [place] [address] 03/23/2025 11:03:56 03/23/2025 11:53:33 Hyperthyroidism 75867846 E05.90 [id number] No referral labs on fileDiagno december of [...] ID Guarantor Name 04/22/2025 1 [place] [id number] 2 Césarraymundo Blayne [id number] Jillian Blayne Notes Date Note Type [...] anxiety and rapid heart rate. STANISLAW LOVE, BUSINESS TEAM LEADER [address] [place], [address], [facility] 03/23/2025 12:47:06 OBGyn Episode No OBEpisode recorded.
--- OUTSIDE RECORDS SUMMARY | 2025-09-09 21:54 | XMS_ITS | Clinical Summary ---
Author Organization [facility] [place] [address] Care Team Providers Care Snake Charmer Name Role Phone Pcp, No Primary Care [...] Vaccines (1 - 3-dose SCDM series) 2024 [id number] Vaccine (3 - 2024- season) 2025 08/06/2021, [...] to complete this topic Insurance Care Teams Snake Charmer Relationship Specialty Start Date [place] [address] PCP - General Family Medicine 04/08/24
--- OUTSIDE RECORDS SUMMARY | 2025-09-09 21:54 | XMS_ITS | Patient Health Record ---
Author Organization [facility] Address [address] [facility] [address] [id number] Care Team Providers Care Door To Door Lead Generation Name Role Phone Johnathan Duenas Primary Care Provider [phone] Adama Ballard Unavailable [phone] Radha Awad Unavailable [phone] Allergies No Known Allergies Results Component Value Reference Range Notes P-T4 Free (thyroxine) Reviewed date:01/27/2025 02:33:57 PM Interpretation:2.1 Performing Lab: Notes/Report: Test performed by [facility] [address] [place], [place] [address] [place] , [address], [place] [address] Nick Brady MD, Switch Repairer CLIA: [id number] Thyroxine Free (free T4) 2.10 0.86-1.76 ng/dL P-Total T3 Reviewed date:01/27/2025 02:33:57 PM Interpretation:Normal Performing Lab: Notes/Report: Test performed by [facility] [address] [place] [address] , [address], [place] [address] Nick Brady MD, Switch Repairer CLIA: [id number] Total T3 1.98 0.80-2.00 ng/mL P-TSH Reviewed date:01/27/2025 02:33:57 PM Interpretation:0.01 Performing Lab: Notes/Report: Test performed by [facility] [address] [place] [address] , [address], [place] [address] Nick Brady MD, Switch Repairer CLIA: [id number] TSH 0.01 0.43-5.25 mU/L P-T4 Free (thyroxine) Reviewed date:08/18/2025 02:54:03 PM Interpretation:Normal Performing Lab: Notes/Report: Test performed by [facility] [address] [place] [address] , [address], [place] [address] Nick Brady MD, Switch Repairer CLIA: [id number] Thyroxine Free (free T4) 1.09 0.86-1.76 ng/dL P-Total T3 Reviewed date:08/18/2025 02:54:12 PM Interpretation:Normal Performing Lab: Notes/Report: Test performed by [facility] [address] [place] [address] , [address], [place] [address] Nick Brady MD, Switch Repairer CLIA: [id number] Total T3 1.31 0.80-2.00 ng/mL P-TSH Reviewed date:08/18/2025 02:54:22 PM Interpretation:Normal Performing Lab: Notes/Report: Test performed by [facility] [address] [place] [address] , [place] [id number] Nick Brady MD, Switch Repairer CLIA: [id number] TSH 2.59 0.43-5.25 mU/L CBC Fingerstick (in house) Reviewed date:02/10/2025 11:39:27 [...] strep test Neg Rapid Strep- Inhouse Reviewed date:05/11/2025 05:36:52 PM Interpretation: Performing Lab: Notes/Report: strep test Neg P-Amylase Reviewed date:05/13/2025 09:49:59 AM Interpretation:Normal Performing Lab: Notes/Report: Test performed by [facility] [address] [place] [address] , [address], [place] [address] Nick Brady MD, Switch Repairer CLIA: [id number] Amylase 42 28-100 U/L P-Antistreptolysin O AB Reviewed date:05/13/2025 09:49:59 AM Interpretation:Normal Performing Lab: Notes/Report: Test performed by [facility] [address] [place] [address] , [address], [place] [address] Nick Brady MD, Switch Repairer CLIA: [id number] Antistreptolysin O AB 175.0 <20-200.0 IU/mL P-Comprehensive Metabolic Pa helio (CMP) Reviewed date:05/13/2025 09:49:59 AM Interpretation:bili 1.4 Performing Lab: Notes/Report: Test performed by [facility] [address] [place] [address] , [address], [place] [address] Nick Brady MD, Switch Repairer CLIA: [id number] Sodium 137 135-145 mmol/L Potassium 4.1 3.5-5.3 [...] Interpretation:Reactive Performing Lab: Notes/Report: Test performed by [facility] [address] [place] [address] , [place] [address] Nick Brady MD, Switch Repairer CLIA: [id number] Cytomegalovirus (CMV) Antibody, IgG Reactive Non-Reactive This [...] >8 Performing Lab: Notes/Report: Test performed by [facility] [address] [place] [address] , [place] [address] Nick Brady MD, Switch Repairer CLIA: [id number] Deidre Dewey Virus (EBV) VCA Antibodies IgG >8.0 <0.9 AI Deidre Dewey Virus (EBV) VCA Antibodies IgM 0.3 <0.9 AI P-Sed Rate (ESR) Reviewed date:05/13/2025 09:50:00 AM Interpretation:Normal Performing Lab: Notes/Report: Test performed by [facility] [address] [place] [address] [place] [address] Nick Brady MD, Switch Repairer CLIA: [id number] Erythrocyte Sedimentation Rate (ESR), Automated 18 <26 mm/hr P-Lipase Reviewed date:05/13/2025 09:50:00 AM Interpretation:Normal Performing Lab: Notes/Report: Test performed by [facility] [address] [place] [address] [address], [place] [address] Nick Brady MD, Switch Repairer CLIA: [id number] Lipase 19.8 13.0-60.0 U/L CBC Venipuncture (in house) Reviewed date:12/30/2024 09:22:03 [...] 01:01:13 PM Interpretation:Normal Performing Lab: Notes/Report: CLIA: [id number] Nick Brady MD, Switch Repairer [address] [place] [address] , [place] [address] Test performed by [facility] Sodium 141 135-145 mmol/L Potassium 4.2 3.5-5.3 [...] 0.71 Performing Lab: Notes/Report: Test performed by [facility] [address] [place] [address] , [address], [place] [address] Nick Brady MD, Switch Repairer CLIA: [id number] Erythrocyte Sedimentation Rate (ESR), Automated 11 <26 mm/hr Rheumatoid Factor 12.0 <14.1 IU/mL C-Reactive Protein (CRP) 0.71 <0.50 mg/dL Antinuclear Antibodies ([facility]) Screen, Reflex [facility] 9 Panel Negative Negative This test is performed by Multiplex Bead Immunoassay methodology. Antinuclear Antibodies ([facility]) Result Note SEE COMMENT For positive Autoantibodies, please refer to the interpretive chart here: [email or web address] [email or web address] CCP Antibodies <0.5 <0.5-3.0 U/mL P-T4 Free (thyroxine) Reviewed date:01/05/2025 01:01:14 PM Interpretation:Normal Performing Lab: Notes/Report: Test performed by [facility] [address] , [place] [address] Nick Brady MD, Switch Repairer CLIA: [id number] Thyroxine Free (free T4) 1.50 0.86-1.76 ng/dL P-Thyroid Antibody Panel (TA BS) Reviewed date:01/05/2025 01:01:14 PM Interpretation:Normal Performing Lab: Notes/Report: Test performed by [facility] [address] , [place] [address] Nick Brady MD, Switch Repairer CLIA: [id number] Thyroid Peroxidase Antibody 17 <9-34 IU/mL An [...] Interpretation:0.17 Performing Lab: Notes/Report: Test performed by [facility] [address] [place] [address] , [place] [address] Nick Brady MD, Switch Repairer CLIA: [id number] TSH 0.17 0.43-5.25 mU/L xultrasound : thyroid Reviewed date:01/05/2025 01:01:13 PM Interpretation:homogenous thyroid Performing Lab: Notes/Report: homogenous thyroid CBC Fingerstick (in house) Reviewed date:05/11/2025 05:37:30 [...] Referral Diagnosis 1 Rash (R21) [facility] Referring Provider First Name Johnathan Referring Provider Last Name Yulissa Referring Provider [facility] ctice Referred Provider Herber Ojeda Referred Provider Specialty Dermatology General Notes Zuleyka Lin 2024 10:44:17 AM > faxed to Dr. Ojeda at [facility] Referral Priority Routine Diagnosis 1 Generalized abdomina l pain (R10.84) Diagnosis 2 Abdominal bloating ( R14.0) Diagnosis 3 Chronic nausea (R11. 0) [facility] Referring Provider First Name Johnathan Referring Provider Last Name Yulissa Referring Provider [facility] Referred Organization [facility] OP Referred Provider JOSHUA BERNARDO Referred Address [address] [place] [id number], Referred Provider Specialty Gastroentero logy General Notes Zuleyka Lin 2024 09:03:00 AM > faxed to [facility] Referral Priority Routine Medications Medication SIG (Take, Route, Fr equency, Duration) Notes Start Date End Date Status Ketoconazole 2 % 1 application Athlete Manager ally Once a day 05/20/2025 Active Ondansetron [...] W/U Status Risk Notes Problem Essential hypertension (16630722) Essential hypertension (I10) Active confirmed Problem Hyperthyroidism (36876393) Hyperthyroidism (E05.90) Active confirmed Problem Mixed anxiety and depressive disorder (697275345) Depression with anxiety (F41.8) Active confirmed Problem Chronic pain (15849222) Other chronic pain (G89.29) Active confirmed Problem Thrombocytopenia (956455242) Thrombocytopenia (D69.6) Active confirmed Problem Chronic rhinitis (76542553) Rhinitis, unspecified type (J31.0) Active confirmed Problem Thyromegaly (6011237) Thyromegaly (E01.0) Active confirmed Problem Obesity (133327206) Non morbid o besity (E66.9) Active confirmed Problem Primary hypertension (44231162) Primary hypertension (I10) Active confirmed Vital Signs Heart Rate 80 /min 05/11/2025 Blood pressure diastolic 70 mm Hg 05/11/2025 Height 61.5 in 05/11/2025 Blood pressure systolic 110 mm Hg 05/11/2025 Weight 221 lbs 05/11/2025 BMI 41.08 kg/m2 05/11/2025 Encounters Encounter Location Date Provider Diagnosis [facility] [address] [place], [place] [id number] 11/10/2024 Johnathan Randleman Essential hypertensi on I10 [facility] [address] [place], [place] [id number] 11/15/2024 Johnathan Randleman Herpes zoster withou t complication B02.9 [facility] [address] [place], [place] [id number] 12/29/2024 Radha Crowdy Myalgia M79.10 ; Arthralgia, unspecified joint M25.50 ; Heart palpitations R00.2 ; Hair loss L65.9 ; Other fatigue R53.83 ; Elevated liver enzymes R74.8 ; Thyromegaly E01.0 and Rash R21 [facility] [address] [place], [place] [id number] 01/26/2025 Johnathan Randleman Low TSH level R79.89 and Rash R21 [facility] [address] [place], [place] [id number] 02/10/2025 Radha Crowdy Acute otitis media, right H66.91 ; Acute URI J06.9 and Body aches R52 [facility] [address] [place], [place] [id number] 02/18/2025 Johnathan Randleman Acute diarrhea R19.7 and Hyperthyroidism E05.90 [facility] [address] [facility] [address] [place], [place] [id number] 05/11/2025 Johnathan Randleman Fever, unspecified R 50.9 ; Sorethroat J02.9 ; Epigastric abdominal pain R10.13 ; Heartburn R12 ; Thrombocytopenia D69.6 ; Family history of breast cancer in female Z80.3 and Skin rash R21 [facility] [address] [place], [place] [id number] 05/31/2025 Johnathan Randleman Thrombocytopenia D69 .6 [facility] [address] [place], [place] [id number] 08/17/2025 Johnathan Randleman Hyperthyroidism E05. 90 [facility] [address] [place], [place] [id number] 01/03/2025 Radha Crowdy [facility] [address] [place], [place] [id number] 01/27/2025 Johnathan Randleman [facility] [address] [place] [id number] 02/07/2025 Johnathan Randleman [facility] [address] [place] [id number] 02/15/2025 Johnathan Randleman [facility] [address] [place] [id number] 02/16/2025 Johnathan Randleman [facility] [address] [place] [id number] 02/28/2025 Johnathan Randleman [facility] [address] [place], [place] [id number] 05/13/2025 Johnathan Randleman [facility] [address] [place], [place] [id number] 05/20/2025 Johnathan Randleman Skin rash R21 [facility] [address] [place] [id number] 05/20/2025 Johnathan Randleman [facility] [address] [place] [id number] 05/26/2025 R Randall Nellie [facility] [address] [place], [place] [id number] 06/13/2025 Johnathan Randleman Rash R21 [facility] [address] [place], [place] [id number] 06/30/2025 Johnathan Randleman Generalized abdomina l pain R10.84 ; Abdominal bloating R14.0 and Chronic nausea R11.0 [facility] [address] [place], [place] [id number] 01/28/2025 Johnathan Randleman [facility] [address] [place], [place] [id number] 04/30/2025 Johnathan Randleman Assessments Encounter Date Diagnosis (ICD Code) Assessment [...] FRANCES BAIG [employer] [address] [place] [address] [id number] ISABELA GODINEZ Self - patient is the insured Medical (General) History Surgical History Surgery Date(Month/Year) Tonsillectomy 2000 Bilateral Ankles 2019 Cholecystectomy 2017 [place] [facility] 2014 D & C 2019 Tubal Ligation 2024 Hospitalization History Reason Date(Month/Year)
--- OUTSIDE RECORDS SUMMARY | 2025-09-09 21:55 | XMS_ITS | Encounter Summary ---
Author Organization [facility] Address [address] [place] [address] Care Team Providers Care Six Pack Loader Operator Name Role Phone Johnathan Duenas MD Primary Care Provider [phone] Reason for Visit * Reason Onset Date Comments Financial - Insurance 05/18/2024 Schedule Appointment 05/19/2024 Encounter Details Date Type Department Care Team (Late st Contact Info) Description 05/18/[address] [phone] [employer] - Insurance; [...] Needed For Provider(s): Lilliana For CPT Codes: [id number], [id number], [id number], [id number], 86247m9, 55968, 12981, 51364, 24643, 71588, 27571, 16546, 11246, 93623, 27943 Qty x 4, 25848, 58808, 64564, 25411, Qty X1 Diagnosis Code: O35.8XX0 For Dates of Service: 06.29.24-08.29.24 Auth/ reference number #: NA Per Availity Phone/Fax: Patient has [employer] Additional Notes: Radiology to authorize the [...] to insurance per insurance guidelines. Patient has [employer] insurance. ID Number:[id number] Effective Date: 10.27.2023 Plan Type: COMMERCIAL PPO Deductible: $1,500 ($0 REM) Coinsurance: 80/20 Out of Pocket: $2,500 ($0 REM) OV Copay: $35 In Network: yes Is it a Covered Benefit?: yes Is a SCA needed: no documented in this encounter Plan of Treatment Not on file documented as of this encounter Visit Diagnoses Not on filedocumented in this encounter Care Teams Six Pack Loader Operator Relationship Specialty Start Date End Date Johnathan Duenas MD [address] [place] [address] PCP - General External Family Practice 05/30/24 documented as of this encounter
--- OUTSIDE RECORDS SUMMARY | 2025-09-09 21:55 | XMS_ITS | Clinical Summary ---
Author Organization [facility] Address [address] [place] [address] Care Team Providers Care Spout Liner Name Role Phone Unknown, Attending Provider Primary [...] therelease of HIV test results or diagnoses. [id number] Allergies No known active allergies Medications [...] plan: To be determined at 32 week [facility] visit Known anomaly, antepartum 05/09/2024 Overview [...] on US today 05/31/2024: echo normal at [facility], will be for 32 weeks team [...] drink = 0.6 oz pur e alcohol) [facility] Utilities Answer Date Recorded In the past [...] any time in the past 12 m [facility], were you homeless or living in a penitentiary (including now)? No 05/07/2024 Yearly Questionnaire Answer Date Record ed Do you need any assistance w ith obtaining housing, meals, medication, transportation or medical equipment? No 05/17 Assistance needed for: Not on file 4 Yearly Questionnaire Answer Date Record ed Do you need any assistance w ith obtaining housing, meals, medication, transportation or medical equipment? No 05/17 Assistance needed for: Not on file 4 Yearly Questionnaire Answer Date Record ed Do [...] Date Last Done Comments Hepatitis C Screening ([facility]) 1997 Depression Screening 2015 Immunization: Hepatitis B (1 of 3 - 19+ 3-dose series) 2016 Cervical Cancer Screening/Pap Smear ([facility]) 2018 Renal Function/GFR 05/07/2025 05/07/2024, 05/06/2024 Diabetes Screening 05/17/2025 05/17/2024 Immunization: COVID-19 ( season) 2025 08/06/2021, 07/17/2021 Immunization: Influenza ([facility]) (#1) 2025 Immunization: DTaP/Tdap/Td (5 - Td [...] Hr 132 mg/dL 05/17/2024 12:49 PM EDT [facility] Comment: 1 HOUR GLUCOSE CHALLENGE INTERPRETATION: Women/ Non Adult - 50 gram glucose load screening for gestational diabetes Expected normal response: A one hour glucose result of less than 140 mg/dL. Plasma 05/17/2024 11:3 0 AM EDT 05/17/2024 12:11 PM EDT Timoteo Sosa MD LAB BLOOD ORDERABLES F inal Result [facility] [address] * (ABNORMAL) Comprehensive Metabolic Panel, STAT (05/07/2024 5:46 PM EDT) Pathologist [facility] Sodium 138 133 - 146 mmol/L 05/07/2024 6:30 PM EDT [facility] Potassium 3.6 3.5 - 5.3 mmol/L 05/07/2024 6:30 PM EDT [facility] Chloride 107 98 - 110 mmol/L 05/07/2024 6:30 PM EDT [facility] CO2 21 21 - 33 mmol/L 05/07/2024 6:30 PM EDT [facility] Anion Gap 10 3 - 16 mmol/L 05/07/2024 6:30 PM EDT [facility] BUN 4(L) 7 - 25 mg/dL 05/07/2024 6:30 PM EDT [facility] Creatinine 0.47(L) 0.60 - 1.30 mg/dL 05/07/2024 6:30 PM EDT [facility] Glucose 174(H) 70 - 100 mg/dL 05/07/2024 6:30 PM EDT [facility] Calcium 8.7 8.6 - 10.3 mg/dL 05/07/2024 6:30 PM EDT [facility] Total Bilirubin 0.4 0.0 - 1.5 mg/dL 05/07/2024 6:30 PM EDT [facility] AST 14 13 - 39 U/L 05/07/2024 6:30 PM EDT [facility] ALT 10 7 - 52 U/L 05/07/2024 6:30 PM EDT [facility] Alkaline Phosphatase 56 36 - 125 U/L 05/07/2024 6:30 PM EDT [facility] Total Protein 6.5 6.4 - 8.9 g/dL 05/07/2024 6:30 PM EDT [facility] Albumin 3.4(L) 3.5 - 5.7 g/dL 05/07/2024 6:30 PM EDT [facility] Osmolality, Calculated 287 278 - 305 mOsm/kg 05/07/2024 6:30 PM EDT [facility] EGFR >90 05/07/2024 6:30 PM EDT [facility] Comment: As of 2021, the [...] 5:46 PM EDT 05/07/2024 6:02 PM EDT Stefano Mae MD LAB BLOOD ORDERABLES Final Resul t [facility] [address] [facility] * , HIV 1/2 Ab+Ag with Reflex (05/06/2024 9:10 PM EDT) HIV 1+2 AB/AGN Nonreactive Nonreactive 05/06/2024 10:08 PM EDT [facility] Serum 05/06/2024 9:10 PM EDT 05/06/2024 9:21 PM EDT Narrative [facility] - 05/06/2024 10:08 PM EDT HIV-1 p24 Antigen and HIV-1/HIV-2 Antibody not detected. Fernando Leonard MD LAB BLOOD ORDERABLES Final Re sult Performing Organization Address City/[facility] [address]/ZIP Co de Phone Number [facility] [address] [facility]. [address] from Last 3 Months or Most Recently Relevant to Health Maintenance Insurance [employer] [employer] [id number] BLUE ACCESS Advance Directives For more information, please contact: [phone] * Full Code (Latest Code Status on File) Date Activated Date Inactivated Comments 05/06/2024 8:33 PM 05/09/2024 5:04 PM Care Teams Spout Liner Relationship Specialty Start Date End Date Unknown, Attending Provider PCP - General 05/06/24
[2025-09-09 21:58] VITALS: BP 130/78; PULSE 94; RESP 17; TEMP 37.9; O2SAT 99; BMI 41.1
[2025-09-09 22:20] LABS: Microscopic, Urine URINE MICROSCOPIC (MICROSCOPIC)
[2025-09-09 22:24] LABS: Bilirubin,Urine Negative (Negative); Color,Urine YELLOW (Yellow); Glucose,Urine (UA) Negative (Negative); Ketones,Urine Negative (Negative); Leukocyte Esterase,Urine 2+ (Negative); PH,Urine 6.0 (5.0-8.5); Protein,Urine Negative (Negative); Specific Gravity, Urine 1.020 (1.005-1.030); Urobilinogen,Urine 0.2 EU/dl (0.2)
--- NOTE | 2025-09-09 22:26 | CT_ITS ---
PROCEDURE INFORMATION: Exam: CT Orbits With Contrast Exam date and time: 09/09/2025 10:43 PM Age: 29 years old Clinical indication: Other: Right sided orbital cellulitis TECHNIQUE: Imaging protocol: Computed tomography of the orbits with contrast. Radiation optimization: All CT scans at this facility use at least one of these dose optimization techniques: automated exposure control; mA and/or kV adjustment per patient size (includes targeted exams where dose is matched to clinical indication); or iterative reconstruction. Contrast material: ISOVUE; Contrast volume: 100 ml; Contrast route: IV; COMPARISON: CT ORBIT BI W CON 09/09/2025 10:43 PM FINDINGS: Paranasal sinuses: Normal. No air-fluid levels. Orbital cavities: Orbits are normal. Globes are unremarkable. Intraconal fat planes appear intact. Bones/joints: No acute fracture. Soft tissues: Extensive right-sided inferior preseptal soft tissue swelling and infiltration image 1002/53. A small amount of involvement of the inferior rectus musculature not excluded on sagittal image 1002/53 which could indicate a small amount of inferior extraconal involvement. IMPRESSION: 1. Extensive right-sided inferior preseptal soft tissue swelling and infiltration image 1002/53. Findings consistent with preseptal cellulitis. 2. A small amount of involvement of the inferior rectus musculature not excluded on sagittal image 1002/53 which could indicate a small amount of inferior extraconal involvement/cellulitis.
--- NOTE | 2025-09-09 22:26 | CT_ITS ---
PROCEDURE INFORMATION: Exam: CT Neck With Contrast Exam date and time: 09/09/2025 10:51 PM Age: 29 years old Clinical indication: Other: Right sided facial abscesses w/ ext to neck TECHNIQUE: Imaging protocol: Computed tomography of the neck with contrast. Radiation optimization: All CT scans at this facility use at least one of these dose optimization techniques: automated exposure control; mA and/or kV adjustment per patient size (includes targeted exams where dose is matched to clinical indication); or iterative reconstruction. Contrast material: ISOVUE; Contrast volume: 75 ml; Contrast route: IV; COMPARISON: MR CERVICAL SPINE WO CON 09/08/2021 10:20 AM FINDINGS: Salivary glands: See Soft tissues finding. Pharynx: Unremarkable. No significant tonsillar enlargement. Larynx: Unremarkable. Epiglottis is normal. Thyroid: Normal. No enlarged or calcified nodules. Trachea: Visualized trachea is unremarkable. Lungs: Unremarkable as visualized. Lymph nodes: Unremarkable. No lymphadenopathy. Bones/joints: Unremarkable. No acute fracture. Soft tissues: Partially visualized extensive subcutaneous infiltration of the right temporal soft tissues image 3/5-43; coursing inferiorly around the subcutaneous soft tissues adjacent to the parotid gland with some mild thickening of the right platysma musculature and deep fascia image 3/31-38. Other findings: No evidence for focal fluid collection. IMPRESSION: 1. Partially visualized extensive subcutaneous infiltration of the right temporal/facial soft tissues image 3/5-43; coursing inferiorly around the subcutaneous soft tissues adjacent to the parotid gland . Findings consistent with cellulitis. 2. Additionally, there is mild thickening of the right platysma musculature and deep fascia image 3/31-38. This is also consistent with cellulitis involving the superficial and deep soft tissues and fascia. 3. No evidence for focal fluid collection to indicate abscess.
[2025-09-09 22:30] LABS: Bacteria,Urine 3+ /lpf
[2025-09-09 22:39] LABS: Hematocrit 38.2 % (37.0-47.0); Hemoglobin 12.8 g/dL (12.2-16.2); Immature Granulocytes % 0.2 %; Mean Corpuscular HGB Conc 33.5 g/dL (31.8-35.4); Mean Corpuscular Hemoglobin 29.4 pg (27.0-31.2); Mean Corpuscular Volume 87.8 fl (81-99); Nucleated Red Blood Cells % 0 %; Platelet Count 178 K/mm3 (142-424); Red Blood Count 4.35 M/mm3 (4.20-5.40); Red Cell Distribution Width-SD 45.2 fL; White Blood Count 5.8 K/mm3 (4.8-10.8)
[2025-09-09 22:44] LABS: Chloride 101 mmol/L (98-107)
[2025-09-09] MEDS: AMPICILLIN/SULBACTAM 3 GM in 0.9 % SODIUM CHLORIDE 100 ML IV (22:44)
[2025-09-09 22:45] LABS: Albumin Level 4.2 g/dl (3.5-5.0); Potassium 3.8 mmoL/L (3.5-5.1); Sodium 140 mmol/L (136-145)
[2025-09-09 22:47] LABS: Alanine Aminotransferase 24 U/L (12-78); Anion Gap 12.8 mEq/L (5-15); Aspartate Amino Transferase 34 U/L (14-36); Blood Urea Nitrogen 11 mg/dl (7-17); Carbon Dioxide 30 mmol/L (22.0-30.0); Creatinine Clearance Estimated 165 mL/min (50-200); Creatinine,Serum 0.80 mg/dl (0.52-1.04); Estimated Glomerular Filt Rate 86 ml/min (>60); GFR (African American) 104 ML/MIN (>60)
[2025-09-09 22:48] LABS: Albumin/Globulin Ratio 1.2 (1.1-1.8); Alkaline Phosphatase 58 U/L (38-126); Bilirubin,Total 0.8 mg/dl (0.2-1.3); Calcium 8.6 mg/dl (8.4-10.2); Globulin 3.6 g/dL (1.3-3.2); Glucose 94 mg/dl (74-100); Total Protein,Serum 7.8 g/dl (6.3-8.2)
--- NOTE | 2025-09-09 22:48 | PC.NURSE ---
Pt taken to CT
[2025-09-09] MEDS: IOPAMIDOL-370 (76%);100ML BOTTLE 175 ML IV (22:52)
[2025-09-09] MEDS: SODIUM CHLORIDE 0.9% 10ML SYR (RAD ONLY) 10 ML IV (22:52)
[2025-09-09 23:00] VITALS: BP 113/73; PULSE 95; O2SAT 100
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
[2025-09-09 23:30] VITALS: BP 112/70; PULSE 94; O2SAT 99
[2025-09-10] VITALS: BP 118/73; PULSE 105; O2SAT 99
[2025-09-10 00:30] VITALS: BP 118/77; PULSE 109; O2SAT 98
[2025-09-10 01:04] VITALS: BP 130/83; PULSE 128; RESP 20; TEMP 36.6; O2SAT 98
[2025-09-10] MEDS: MORPHINE 4MG/ML SYRINGE 4 MG IV (01:19)
[2025-09-10] MEDS: ONDANSETRON 4MG/2ML VIAL 4 MG IV (01:19)
== END 2025-09-10 01:19 | disposition other institution (70) ==
PROVIDERS: Emergency Provider Student in an Organized Health Care Education/Training Program; PCP Family Medicine
DX: H05.011 Cellulitis of right orbit (principal); L03.213 Periorbital cellulitis; L03.211 Cellulitis of face; L72.9 Follicular cyst of the skin and subcutaneous tissue, unspecified
CPT/HCPCS: 10061; 70481; 70491; 80053; 81001; 85025; 87086; 99285; J0295; J2270; J2405; Q9967

== ENCOUNTER 2025-10-26 14:23 | Outpatient (CLI) | payer BC, SELFPAY ==
--- OUTSIDE RECORDS SUMMARY | 2024-12-29 04:45 | XMS_ITS ---
Author Organization [facility] Address [address] [place] [id number] Care Team Providers Care Criminalist Name Role Phone Johnathan Duenas Primary Care Provider Radha Awad Unavailable [phone] Allergies No Known Allergies Results Component Value [...] Interpretation:Normal Performing Lab: Notes/Report: Test performed by [facility] [facility] [employer], [employer] [address] [place] [address] , [address], [place] [address] Nick Brady MD, Advertising Project Manager CLIA: [id number] Sodium 141 135-145 mmol/L Potassium 4.2 3.5-5.3 [...] mg/dL A/G Ratio 1.4 1.1-2.5 [facility], [facility] Reviewed date:01/05/2025 01:01:14 PM Interpretation:CRP 0.71 Performing Lab: Notes/Report: Test performed by [facility] [address] [place] [address] , [address], [place] [address] Nick Brady MD, Advertising Project Manager CLIA: [id number] Erythrocyte Sedimentation Rate (ESR), Automated 11 <26 mm/hr Rheumatoid Factor 12.0 <14.1 IU/mL C-Reactive Protein (CRP) 0.71 <0.50 mg/dL Antinuclear Antibodies (LATRICIA) Screen, Reflex LATRICIA 9 Panel Negative Negative This test is performed by Multiplex Bead Immunoassay methodology. Antinuclear Antibodies (LATRICIA) Result Note SEE COMMENT For positive Autoantibodies, please refer to the interpretive chart here: [email or web address] CCP Antibodies <0.5 <0.5-3.0 U/mL P-T4 Free (thyroxine) Reviewed date:01/05/2025 01:01:14 PM Interpretation:Normal Performing Lab: Notes/Report: Test performed by [facility] [address] [place] [address] , [address], [place] [address] Nick Brady MD, Advertising Project Manager CLIA: [id number] Thyroxine Free (free T4) 1.50 0.86-1.76 ng/dL P-Thyroid Antibody Panel (TA BS) Reviewed date:01/05/2025 01:01:14 PM Interpretation:Normal Performing Lab: Notes/Report: Test performed by [facility] [address] [place] [address] , [address], [place] [address] Nick Brady MD, Advertising Project Manager CLIA: [id number] Thyroid Peroxidase Antibody 17 <9-34 IU/mL An [...] Interpretation:0.17 Performing Lab: Notes/Report: Test performed by [facility] [address] , [address], [place] [address] Nick Brady MD, Advertising Project Manager CLIA: [id number] TSH 0.17 0.43-5.25 mU/L xultrasound : thyroid [...] days 11/15/2024 Active Vitamin Act ramakrishna Nystatin 260680 UNIT/GM 1 application Ex ternally Twice a day 12/29/2024 Active Problems Problem Type SNOMED Code ICD Code Onset Dates Problem Status W/U Status Risk Notes Problem Thyromegaly (4861613) Thyromegaly (E01.0) Active confirmed Vital Signs Weight 219.6 lbs 12/29/2024 Blood pressure systolic 104 mm Hg 12/30/19 25 Blood pressure diastolic 70 mm Hg 025 Heart Rate 73 /min 12/29/2024 Height 61.5 in 12/29/2024 BMI 40.82 kg/m2 12/29/2024 Encounters Encounter Location Date Provider Diagnosis [facility] [address] [place] [phone] 12/29/2024 Radha Awad Myalgia M79.10 ; Arthralgia, [...] Sig Start Date Stop Date Notes Nystatin 196166 UNIT/GM 1 application Ex ternally Twice a day 12/29/2024 Next Appt Details Follow Up: via phone to repo rt test results, Reason: Progress Notes * MOHAN GODINEZHIRALOB:1995 (30 yo F)Acc No.[id number]:12/29/2024 Progress Notes Patient: ISABELA HELMS Provider: FLORENCIA Palomino :1995 A ge:29 Y S ex:Female Date:12/29/2024 Address:[address] [place], [place] [phone] Pcp:Johnathan Duenas Subjective: * Chief Complaints: * [...] onsillectomy 1999, Bilateral Ankles 2018, Cholecystectomy 2016, [place] Teeth 2013, D & C 2019, Tubal [...] PM > no auth required; CPT code 62659; faxed to [facility] Scheduling Radha Awad 01/05/2025 1:01:07 PM > see TE 7.?Rash? Start Nystatin Cream, 117605 UNIT/GM, 1 application, Externally, Twice a day, 60 grams, Refills 1. ? * Procedure Codes: 8 5025 CBC WITH AUTO DIFF, 06214 VENIPUNCT, ROUTINE*, 3074F SYST BP LT 130 MM HG, 3078F DIAST BP < 80 MM HG * Follow Up: v ia phone to report test results * Images: Billing Information: * Visit Code: 75505 Office Visit, Est Pt., Level 4. * Procedure Codes: 60426 CBC WITH AUTO DIFF. 71770 VENIPUNCT, ROUTINE*. 3074F SYST BP LT 130 MM HG. 3078F DIAST BP < 80 MM HG. * Electronic signature of FLORENCIA Galloway on 10/26/2025 at 02:26 PM EST Sign off status: Pending * Provider: FLORENCIA Palomino Date: 0 12/29/2024 Generated for Printi ng/Fawoodyg/eTransmitting on: 1 02:26 PM EST History and Physical Notes * [...]
--- OUTSIDE RECORDS SUMMARY | 2025-01-26 09:15 | XMS_ITS ---
Author Organization [facility] Address [address] [facility] [address] [place] [phone] Care Team Providers Care Dietitian Chief Name Role Phone Johnathan Duenas Primary Care Provider [phone] Allergies No Known Allergies Results Component Value Reference Range Notes P-T4 Free (thyroxine) Reviewed date:01/27/2025 02:33:57 PM Interpretation:2.1 Performing Lab: Notes/Report: CLIA: [id number] Nick Brady MD, Senior Mechanical Design Engineer [address] [place] [address] , [address], [place] [address] Test performed by [facility] Thyroxine Free (free T4) 2.10 0.86-1.76 ng/dL P-Total T3 Reviewed date:01/27/2025 02:33:57 PM Interpretation:Normal Performing Lab: Notes/Report: Test performed by [facility] [address] [place] [address] [address], [place] [address] Nick Brady MD, Senior Mechanical Design Engineer CLIA: [id number] Total T3 1.98 0.80-2.00 ng/mL P-TSH Reviewed date:01/27/2025 02:33:57 PM Interpretation:0.01 Performing Lab: Notes/Report: Test performed by [facility] [address] [place] [address] , [address], [place] [address] Nick Brady MD, Senior Mechanical Design Engineer CLIA: [id number] TSH 0.01 0.43-5.25 mU/L REASON FOR VISIT [...] times a Week 01/26/2025 Active Vital Signs Weight 219.4 lbs 01/26/2025 Blood pressure systolic 112 mm Hg 01/27/20 25 Blood pressure diastolic 70 mm Hg 025 Heart Rate 106 /min 01/26/2025 Height 61.5 in 01/26/2025 BMI 40.78 kg/m2 01/26/2025 Encounters Encounter Location Date Provider Diagnosis [facility] [address] [place] [id number] 01/26/2025 Johnathan Duenas Low TSH level R79.89 [...] progress, Reason: Progress Notes * MOHAN GODINEZHIRALOB:1995 (30 yo F)Acc No.[id number]:01/26/2025 Progress Notes Patient: ISABELA HELMS Provider: Ramesh Duenas M.D. :1995 A ge:29 Y S ex:Female Date:01/26/2025 Address:[facility] [id number] Subjective: * Chief Complaints: * 1 . [...] onsillectomy 1999, Bilateral Ankles 2018, Cholecystectomy 2016, [place] Teeth 2013, D & C 2019, Tubal [...] Three times a day , Discontinued Nystatin 805469 UNIT/GM Cream 1 application Externally Twice a [...] * Images: Billing Information: * Visit Code: 09765 Office Visit, Est Pt., Level 3. * Procedure Codes: 3074F SYST BP LT 130 MM HG. 3078F DIAST BP < 80 MM HG. * Electronic signature of Sharda Duenas MD on 10/26/2025 at 02:25 PM EST Sign off status: Pending * Provider: Ramesh Duenas M.D. Date: 0 01/26/2025 Generated for Reggie stone/Leslie/eTyanirasmitting on: 1 02:25 PM EST History and Physical Notes * [...]
--- OUTSIDE RECORDS SUMMARY | 2025-02-10 06:00 | XMS_ITS ---
Author [facility] Address [address] [place] [phone] Care Team Providers Care News Analyst Name Role Phone Johnathan Duenas Primary Care Provider PranayRadha grace Unavailable [phone] Allergies No Known Allergies Results Component Value Reference Range Notes Rapid Strep- Inhouse Reviewed date:02/10/2025 11:39:14 AM Interpretation: Performing Lab: Notes/Report: strep test Neg CBC Fingerstick (in house) Reviewed date:02/10/2025 11:39:27 AM Interpretation: Performing Lab: Notes/Report: wbc 6.8 3.5 - 10 lym 16.1% 15 - 50 mid 3.8% 2 - 15 gran 80.1% 35 - 80 rbc 4.71 3.5 - 5.5 hgb 14.0 11.5 - 16.5 hct 41.4 35 - 55 mcv 87.9 75 - 100 mch 29.7 25 - 35 mchc 33.7 31 - 38 plat 177 100 - 400 REASON FOR VISIT sore throat ,low grade fever Medications Medication SIG (Take, Route, Frequency, Duration) Notes Start Date End Date Status busPIRone HCl 10 MG 1 tablet Orally Twic e a day Active Triamcinolone Acetonide 0.1 % 1 application Externally Two times a Week 01/26/2025 Active methIMAzole 5 MG 1 tablet Orally Once a day; Duration: 90 days 01/27/2025 Active Cefdinir 300 MG 1 cap(s) Orally Two times a day; Duration: 10 day(s) 02/10/2025 Active Fluconazole 150 MG 1 tablet Orally once daily 02/10/2025 Active Multi Vitamin - 1 tablet Orally Once a day; Duration: 30 day(s) Active Vilazodone HCl 10 MG 1 tablet with food Orally Once a day; Duration: 30 day(s) Active Vital Signs Weight 218.6 lbs 02/10/2025 Blood pressure systolic 100 mm Hg 02/11/20 25 Blood pressure diastolic 70 mm Hg 025 Heart Rate 75 /min 02/10/2025 Height 61.5 in 02/10/2025 BMI 40.63 kg/m2 02/10/2025 Encounters Encounter Location Date Provider Diagnosis [facility] [address] [place] [id number] 02/10/2025 Radha Awad Acute otitis media, right H66.91 ; Acute URI J06.9 and Body aches R52 Assessments Encounter Date Diagnosis (ICD Code) Assessment Notes Treatment Notes Treatment Clinical Notes Section Notes 02/10/2025 Acute otitis media, right (ICD-10 - H66.91) 02/10/2025 Acute URI (ICD-10 - J06.9) 02/10/2025 Body aches (ICD-10 - R52) Pt has not yet stopped the methimazole. She will stop it and see if her symptoms improve. Plan Of Treatment Medication Medication Name Sig Start Date Stop Date Notes Cefdinir 300 MG 1 cap(s) Orally Two times a day; Duration: 10 day(s) 02/10/2025 Fluconazole 150 MG 1 tablet Orally once daily 02/10/2025 Treatment Notes Assessment Notes Body aches Pt has not yet stopp ed the methimazole. She will stop it and see if her symptoms improve. Next Appt Details Follow Up: via phone to repo rt progress, Reason: Progress Notes * JOYCELYN GODINEZOB:1995 (30 yo F)Acc No.[id number]:02/10/2025 Progress Notes Patient: ISABELA HELMS Provider: FLORENCIA Palomino :1995 A ge:29 Y S ex:Female Date:02/10/2025 Address[facility] Pcp:Johnathan Duenas Subjective: * Chief Complaints: * 1 . Sore throat ,low grade fever. * HPI: E NT/respiratory: The patient is here today with c/o sore throat. Pt states she started last night with sore throat. Pt states she has had low grade fever , muscle aches and head aches since starting the Methimazole. Pt states the rash under both arms has gotten worse. 29 year old female presents with c/o sore throat. c/o Fever. * ROS: D ERMATOLOGY: no R bri. n o H david. G ASTROENTEROLOGY: no N ausea. n o V omiting. n o D iarrhea.? U ROLOGY: no D ifficulty urinating. n o B lood in urine. * 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: M edical History Verified. * Surgical History: T onsillectomy 1999, Bilateral Ankles 2018, Cholecystectomy 2016, [place] Teeth 2013, D & C 2019, Tubal Ligation 2024. * Family History: F ather: alive, diagnosed with Cancer. M other: , diagnosed with Hypertension, Cancer. * 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: C URRENT TOBACCO USE: No . C affeine: yes, coffee,tea,soft drinks 10-12 cups a day. Marital Status: . Alcohol: no. * Medications: T aking Multi Vitamin - Tablet 1 tablet Orally Once a day , Taking Vilazodone HCl 10 MG Tablet 1 tablet with food Orally Once a day , Taking busPIRone HCl 10 MG Tablet 1 tablet Orally Twice a day , Taking Triamcinolone Acetonide 0.1 % Cream 1 application Externally Two times a Week , Taking methIMAzole 5 MG Tablet 1 tablet Orally Once a day , Discontinued Vitamin , Discontinued Valtrex 1 GM Tablet 1 tablet Orally Three times a day * Allergies: N .K.D.A. Objective: * Vitals: W t:218.6, Temp:98.0, BP:100/70, HR:75, Nurse:LEIGH, Ht: 61.5, BMI:40.63. * Examination: E NT/Respiratory: General Appearance: N AD. E ars: a uditory canals normal bilaterally, right TM erythematous, left TM normal. N ose : turbinates red. S inuses : non tender bilaterally. O ral cavity : erythema without exudate on pharynx. Neck : n o cervical lymphadenopathy. H eart : R RR, normal S1 S2, no murmurs. L ungs: c lear to auscultation bilaterally. A bdomen : BS present, soft, nontender. Assessment: * Assessment: 1. A cute otitis media, right - H66.91 (Primary) 2 . A cute URI - J06.9? 3. B sussy aches - R52 Plan: * Treatment: 2. A cute URI L AB: CBC Fingerstick (in house) (Collection Date & Time - 02/10/2025) Value Reference Range w bc 6.8 3.5 - 10 * l ym 16.1% 15 - 50 * m id 3.8% 2 - 15 * g ran 80.1% 35 - 80 * r bc 4.71 3.5 - 5.5 * h gb 14.0 11.5 - 16.5 * h ct 41.4 35 - 55 * m cv 87.9 75 - 100 * m ch 29.7 25 - 35 * m chc 33.7 31 - 38 * p lat 177 100 - 400 * Joann Cheema 02/10/2025 11: 25:46 AM > Provider reviewed results while patient in office.Radha Awad 02/10/2025 11:39:23 AM > 3.?Body aches? Notes: Pt has not yet stopped the methimazole. She will stop it and see if her symptoms improve. ? * Labs: * L ab: Rapid Strep- Inhouse (Collection Date & Time - 02/10/2025) Value Reference Range s trep test Neg * Joann Cheema 02/10/2025 11: 17:22 AM > Patient informed of normal results.PranaysanjayRadha S 02/10/2025 11:39:11 AM > * Procedure Codes: 8 7880 STREP A ASSAY W/OPTIC, Modifiers: QW , 45352 CAPILLARY BLOOD DRAW, 86893 CBC WITH AUTO DIFF * Follow Up: v ia phone to report progress * Images: Billing Information: * Visit Code: 99911 Office Visit, Est Pt., Level 3. * Procedure Codes: 78763 STREP A ASSAY W/OPTIC. Modifiers: QW 68706 CAPILLARY BLOOD DRAW. 16447 CBC WITH AUTO DIFF. * Electronic signature of FLORENCIA Galloway on 10/26/2025 at 02:26 PM EST Sign off status: Pending * Provider: FLORENCIA Palomino Date: 0 02/10/2025 Generated for Reggie stone/Leslie/Bill on: 1 02:26 PM EST History and Physical Notes * HPI (History of Present Illness) Category Sub-Category Detail Notes Category Not es ENT/respiratory sore throat Fever Examination Category Sub-Category Detail Notes Category Not es ENT/Respiratory Oral cavity : erythema without exudate on pharynx Sinuses : non tender bilateral ly Ears: auditory canals norm al bilaterally, right TM erythematous, left TM normal Neck : no cervical lymphade nopathy Heart : RRR, normal S1 S2, n o murmurs Lungs: clear to auscultatio n bilaterally Abdomen : BS present, soft, no ntender General Appearance: NAD Nose : turbinates red
--- OUTSIDE RECORDS SUMMARY | 2025-02-18 09:00 | XMS_ITS ---
Author Organization [facility] Address 1210 [facility] [address] [place] [id number] Care Team Providers Care Crab Fisher Name Role Phone Johnathan Duenas Primary Care Provider Allergies No Known Allergies REASON FOR VISIT [...] Propylthiouracil 50 MG 1 tablet Orally T wice a day 02/15/2025 Active Multi Vitamin - 1 tablet Orally Once a day; Duration: 30 day(s) Active Problems Problem Type SNOMED Code ICD Code Onset Dates Problem Status W/U Status Risk Notes Problem Hyperthyroidism (23031908) Hyperthyroidism (E05.90) Active confirmed Vital Signs Weight 218.8 lbs 02/18/2025 Blood pressure systolic 110 mm Hg 02/19/20 25 Blood pressure diastolic 70 mm Hg 025 Heart Rate 80 /min 02/18/2025 Height 61.5 in 02/18/2025 BMI 40.67 kg/m2 02/18/2025 Encounters Encounter Location Date Provider Diagnosis [facility] [address] [place] [id number] 02/18/2025 Johnathan Duenas Acute diarrhea R19.7 and [...] Weeks, Reason: Progress Notes * JOYCELYN GODINEZOB:1995 (30 yo F)Acc No.[id number]:02/18/2025 Progress Notes Patient: ISABELA HELMS Provider: Ramesh Duenas M.D. :1995 A ge:29 Y S ex:Female Date:02/18/2025 Address:[place], [id number] Subjective: * Chief Complaints: * 1 . [...] onsillectomy 1999, Bilateral Ankles 2018, Cholecystectomy 2016, [place] Teeth 2013, D & C 2019, Tubal [...] * Images: Billing Information: * Visit Code: 15752 Office Visit, Est Pt., Level 3. * Procedure Codes: 3074F SYST BP LT 130 MM HG. 3078F DIAST BP < 80 MM HG. * Electronic signature of Sharda Duenas MD on 10/26/2025 at 02:26 PM EST Sign off status: Pending * Provider: Ramesh Duenas M.D. Date: 0 02/18/2025 Generated for Reggie stone/Leslie/Bill on: 1 02:26 [...]
--- OUTSIDE RECORDS SUMMARY | 2025-03-18 09:30 | XMS_ITS ---
Author Organization [facility] Address [address] [place] [phone] Care Team Providers Care Per Diem Physical Therapist Name Role Phone Johnathan Duenas Primary Care Provider REASON FOR VISIT fu blood work for thyroid Encounters Encounter Location Date Provider Diagnosis [facility] [address] [place] [id number] 03/18/2025 Johnathan Duenas Plan Of Treatment No Information Progress Notes * MOHAN GODINEZHIRALOB:1995 (30 yo F)Acc No.[id number]:03/18/2025 Patient: ISABELA HELMS Provider: Ramesh Duenas M.D. :1995 A ge:29 Y S ex:Female Date:03/18/2025 Address:[address] [place], [place] Subjective: * Chief Complaints: * 1 . Fu blood work for thyroid. * 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: Objective: * Vitals: Assessment: Plan: * Treatment: * Images: Billing Information: * Visit Code: * Procedure Codes: * Electronic signature of Sharda Duenas MD on 10/26/2025 at 02:26 PM EST Sign off status: Pending * Provider: Ramesh Duenas M.D. Date: 0 03/18/2025 Generated for Reggie stone/Leslie/Bill on: 1 02:26 PM EST
--- OUTSIDE RECORDS SUMMARY | 2025-05-11 10:00 | XMS_ITS ---
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 Name Role Phone Johnathan Duenas Primary Care Provider Allergies No Known Allergies Results Component Value Reference Range Notes Rapid Strep- Inhouse Reviewed date:05/11/2025 05:36:52 PM Interpretation: Performing Lab: Notes/Report: strep test Neg CBC Fingerstick (in house) Reviewed date:05/11/2025 05:37:30 PM Interpretation: Performing Lab: Notes/Report: wbc 5.5 3.5 - 10 lym 41.1% 15 - 50 mid 8.3% 2 - 15 gran 50.6% 35 - 80 rbc 4.22 3.5 - 5.5 hgb 12.5 11.5 - 16.5 hct 36.2 35 - 55 mcv 85.7 75 - 100 mch 29.5 25 - 35 mchc 34.4 31 - 38 plat 91 100 - 400 P-Amylase Reviewed date:05/13/2025 09:49:59 AM Interpretation:Normal Performing Lab: Notes/Report: Test performed by [facility] [address] [place], [place] [address] [place] , [address], [place] [address] Nick Brady MD, Trainer CLIA: [id number] Amylase 42 28-100 U/L P-Antistreptolysin O AB Reviewed date:05/13/2025 09:49:59 AM Interpretation:Normal Performing Lab: Notes/Report: Test performed by [facility] [address] [place], [place] [address] [employer] [facility] [place] , [address], [place] [address] Nick Brady MD, Trainer CLIA: [id number] Antistreptolysin O AB 175.0 <20-200.0 IU/mL P-Comprehensive Metabolic Pa helio (CMP) Reviewed date:05/13/2025 09:49:59 AM Interpretation:bili 1.4 Performing Lab: Notes/Report: Test performed by [facility] [address] [place] [address] , [place] [address] Nick Brady MD, Trainer CLIA: [id number] Sodium 137 135-145 mmol/L Potassium 4.1 3.5-5.3 mmol/L Chloride 99 97-108 mmol/L CO2 27 20-32 mmol/L Glucose 81 65-99 mg/dL BUN 7 6-20 mg/dL Creatinine 0.79 0.50-1.00 mg/dL Calcium 9.3 8.6-10.4 mg/dL eGFR by Creatinine 105 >59 mL/min/1.73m2 Protein 7.4 6.0-8.3 g/dL Albumin 4.2 3.5-5.3 g/dL Alkaline Phosphatase 86 35-121 IU/L ALT (SGPT) 25 <5-47 IU/L AST (SGOT) 28 <5-40 IU/L Bilirubin, Total 1.4 <0.2-1.2 mg/dL A/G Ratio 1.3 1.1-2.5 P-Cytomegalovirus (CMV) Anti bodies, IgG/IgM Reviewed date:05/13/2025 09:49:59 AM Interpretation:Reactive Performing Lab: Notes/Report: Test performed by [facility] [address] [place] [address] [place] [address] Nick Brady MD, Trainer CLIA: [id number] Cytomegalovirus (CMV) Antibody, IgG Reactive Non-Reactive This test is performed by the [employer] Cytomegalovirus IgG assay. Results from assays of other manufacturers cannot be used interchangeably. Non-reactive CMV IgG-specific antibodies not detected. Borderline Recommend collection of a second sample, within 2 weeks, for repeat testing. Reactive CMV IgG-specific antibodies detected. Cytomegalovirus (CMV) Antibodies, IgM Reactive Non-Reactive This test is performed by the [employer] Cytomegalovirus IgM assay. Results from assays of other manufacturers cannot be used interchangeably. Non-Reactive CMV IgM-specific antibodies not detected. Borderline Recommend collection of a second sample, within 2 weeks, for repeat testing. Reactive CMV IgM-specific antibodies detected. P-Deidre Dewey Virus (EBV) V CA Antibodies IgG IgM Reviewed date:05/13/2025 09:50:00 AM Interpretation:EBV IgG >8 Performing Lab: Notes/Report: Test performed by [facility] [address] [place] [address] , [address], [place] [address] Nick Brady MD, Trainer CLIA: [id number] Deidre Dewey Virus (EBV) VCA Antibodies IgG >8.0 <0.9 AI Deidre Dewey Virus (EBV) VCA Antibodies IgM 0.3 <0.9 AI P-Sed Rate (ESR) Reviewed date:05/13/2025 09:50:00 AM Interpretation:Normal Performing Lab: Notes/Report: Test performed by [facility] [address] , [address], [place] [address] Nick Brady MD, Trainer CLIA: [id number] Erythrocyte Sedimentation Ra te (ESR), Automated 18 <26 mm/hr P-Lipase Reviewed date:05/13/2025 09:50:00 AM Interpretation:Normal Performing Lab: Notes/Report: Test performed by [facility] [address] [place] [address] , [address], [place] [address] Nick Brady MD, Trainer CLIA: [id number] Lipase 19.8 13.0-60.0 U/L REASON FOR VISIT 6 months Medications Medication SIG (Take, Route, Fr equency, Duration) Notes Start Date End Date Status Multi Vitamin - 1 tablet Orally Once a day; Duration: 30 day(s) Active Nystatin 785259 UNIT/GM 1 application Ex ternally Twice a day 05/11/2025 Active Omeprazole 40 MG 1 capsule 1/2 to 1 h our before morning meal Orally Once a day; Duration: 30 days 05/11/2025 Active Ubrelvy 100 MG 1 tablet as needed, may take second dose at least 2 hours after first dose up to 2 tablets per day as needed Orally Once a day Active traZODone HCl 50 MG 1 tablet at bedtime as needed Orally Once a day Active busPIRone HCl 10 MG 1 tablet Orally Twice a day Active Problems Problem Type SNOMED Code ICD Code Onset Dates Problem Status W/U Status Risk Notes Problem Thrombocytopenia (368288667) Thrombocytopenia (D69.6) Active confirmed Vital Signs Weight 221 lbs 05/11/2025 Blood pressure systolic 110 mm Hg 05/11/20 25 Blood pressure diastolic 70 mm Hg 025 Heart Rate 80 /min 05/11/2025 Height 61.5 in 05/11/2025 BMI 41.08 kg/m2 05/11/2025 Encounters Encounter Location Date Provider Diagnosis [facility] [address] [place], [place] [id number] 05/11/2025 Johnathan Duenas Fever, unspecified R 50.9 ; Sorethroat J02.9 ; Epigastric abdominal pain R10.13 ; Heartburn R12 ; Thrombocytopenia D69.6 ; Family history of breast cancer in female Z80.3 and Skin rash R21 Assessments Encounter Date Diagnosis (ICD Code) Assessment Notes Treatment Notes Treatment Clinical Notes Section Notes 05/11/2025 Fever, unspecified (ICD-10 - R50.9) 05/11/2025 Sorethroat (ICD-10 - J02.9) 05/11/2025 Epigastric abdominal pain (ICD-10 - R10.13) 05/11/2025 Heartburn (ICD-10 - R12) 05/11/2025 Thrombocytopenia (ICD-10 - D69.6) 05/11/2025 Family history of breast cancer in female (ICD-10 - Z80.3) 05/11/2025 Skin rash (ICD-10 - R21) Plan Of Treatment Medication Medication Name Sig Start Date Stop Date Notes Nystatin 618862 UNIT/GM 1 application Ex ternally Twice a day 05/11/2025 Omeprazole 40 MG 1 capsule 1/2 to 1 h our before morning meal Orally Once a day; Duration: 30 days 05/11/2025 Next Appt Details Follow Up: via phone to repo rt progress, Reason: Progress Notes * JOYCELYN GODINEZOB:1995 (30 yo F)Acc No.[id number]:05/11/2025 Progress Notes Patient: MOHAN HELMSNE Provider: Ramesh Duenas M.D. :1995 A ge:29 Y S ex:Female Date:05/11/2025 Address:[place], [id number] Subjective: * Chief Complaints: * 1 . 6 months. * HPI: C ardiology: 29 year old female presents with c/o Blood Pressure Elevated?Pt here for 6 mo check up on hypertension. Pt states she is doing well and does not have any concerns. E ndocrinology: c/o Hypothyroidism P t here to f/u. E NT/respiratory: c/o sore throat P t complains of sore throat for over a month. Associated with fever, nausea and stomach pain. Pt states she did go [place] [facility] [place] and tested negative for strep throat. Pt states she did feel better for a couple days after that but symptoms returned . * ROS: D ERMATOLOGY: no R bri. n o H david. G ASTROENTEROLOGY: no N ausea. n o V omiting. U ROLOGY: no D ifficulty urinating. n o B lood in urine. * 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: M edical History Verified. * Surgical History: T onsillectomy 1999, Bilateral Ankles 2018, Cholecystectomy 2016, [place] Teeth 2013, D & C 2019, Tubal Ligation 2024. * Hospitalization/Major Diagno stic Procedure: D enies Past Hospitalization. * Family History: F ather: alive, diagnosed with Cancer. M other: , diagnosed with Hypertension, Cancer. 2 son(s) , 1 daughter(s) - healthy. . * 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: C URRENT TOBACCO USE: No . C affeine: yes, coffee,tea,soft drinks 10-12 cups a day. Marital Status: . Alcohol: no. * Medications: T aking Ubrelvy 100 MG Tablet 1 tablet as needed, may take second dose at least 2 hours after first dose up to 2 tablets per day as needed Orally Once a day , Taking traZODone HCl 50 MG Tablet 1 tablet at bedtime as needed Orally Once a day , Taking Multi Vitamin - Tablet 1 tablet Orally Once a day , Taking busPIRone HCl 10 MG Tablet 1 tablet Orally Twice a day , Discontinued Vilazodone HCl 10 MG Tablet 1 tablet with food Orally Once a day , Discontinued Triamcinolone Acetonide 0.1 % Cream 1 application Externally Two times a Week , Discontinued Propylthiouracil 50 MG Tablet 1 tablet Orally Twice a day , Medication List reviewed and reconciled with the patient * Allergies: N .K.D.A. Objective: * Vitals: W t: 221, Temp: 100.6, BP: 110/70, HR: 80, Nurse: yocasta, Ht: 61.5, BMI:41.08. * Examination: E NT/Respiratory: General Appearance: N AD. E yes: P ERRLA, sclera clear. N ose : n ormal, no lesions, nares patent. O ral cavity : o nly minimal e rythema or exudate seen on pharynx. N amarilis : S hotty, nontender adenopathy. H eart : R RR, normal S1 S2. L ungs: c lear to auscultation bilaterally. S kin : f aint red rash in the center of each axilla with some central clearing. Assessment: * Assessment: 1. F ever, unspecified - R50.9 (Primary) 2 . S orethroat - J02.9 3 . E pigastric abdominal pain - R10.13 4 . H eartburn - R12 ? 5 . T hrombocytopenia - D69.6 6 . F amily history of breast cancer in female - Z80.3 7 . S kin rash - R21 Plan: * Treatment: Value Reference Range A /G Ratio 1.3 1.1-2.5 - * A lbumin 4.2 3.5-5.3 - g/dL * A lkaline Phosphatase 86 35-121 - IU/L * A LT (SGPT) 25 <5-47 - IU/L * A ST (SGOT) 28 <5-40 - IU/L * B ilirubin, Total 1.4 H <0.2-1.2 - mg/dL * B UN 7 6-20 - mg/dL * C alcium 9.3 8.6-10.4 - mg/dL * C hloride 99 97-108 - mmol/L * C O2 27 20-32 - mmol/L * C reatinine 0.79 0.50-1.00 - mg/dL * G lucose 81 65-99 - mg/dL * P otassium 4.1 3.5-5.3 - mmol/L * S odium 137 135-145 - mmol/L * P rotein 7.4 6.0-8.3 - g/dL * e GFR by Creatinine 105 >59 - mL/min/1.73m2 * Nichole Palacios 05/13/2025 09: 49:51 AM EDT > See phone encounter ?LAB: P-Cytomegalovirus (CMV) Antibodies, IgG/IgM (Collection Date & Time - 05/11/2025 02:29 PM)?Reactive* Value Reference Range C ytomegalovirus (CMV) Antibody, IgG Reactive A Non-R eactive - * C ytomegalovirus (CMV) Antibodies, IgM Reactive A Non -Reactive - * PhilipNichole 05/13/2025 09: 49:51 AM EDT > See phone encounter ?LAB: P-Sed Rate (ESR) (Collection Date & Time - 05/11/2025 02:29 PM)?Normal * Value Reference Range E rythrocyte Sedimentation Rate (ESR), Automated 18 <26 - mm/hr * Nichole Palacios 05/13/2025 09: 49:51 AM EDT > See phone encounter ?LAB: Rapid Strep- Inhouse (Collection Date & Time - 05/11/2025)* Value Reference Range s trep test Neg * Vika Zendejas 05/11/2025 03:18: 54 PM EDT > Provider reviewed results while patient in office.Johnathan Duenas T 05/11/2025 05:36:47 PM EDT > ?LAB: CBC Fingerstick (in house) (Collection Date & Time - 05/11/2025)* Value Reference Range w bc 5.5 3.5 - 10 * l ym 41.1% 15 - 50 * m id 8.3% 2 - 15 * g ran 50.6% 35 - 80 * r bc 4.22 3.5 - 5.5 * h gb 12.5 11.5 - 16.5 * h ct 36.2 35 - 55 * m cv 85.7 75 - 100 * m ch 29.5 25 - 35 * m chc 34.4 31 - 38 * p lat 91 100 - 400 * Vika Zendejas 05/11/2025 03:14: 36 PM EDT > Provider reviewed results while patient in office.Johnathan Duenas T 05/11/2025 05:37:22 PM EDT > 2.?Sorethroat?LAB: P-Antistreptolysin O AB (Collection Date & Time - 05/11/2025 02:29 PM) ?Normal* Value Reference Range A ntistreptolysin O AB 175.0 <20-200.0 - IU/mL * Nichole Palacios 05/13/2025 09: 49:51 AM EDT > See phone encounter ?LAB: P-Cytomegalovirus (CMV) Antibodies, IgG/IgM (Collection Date & Time - 05/11/2025 02:29 PM)?Reactive* Value Reference Range C ytomegalovirus (CMV) Antibody, IgG Reactive A Non-R eactive - * C ytomegalovirus (CMV) Antibodies, IgM Reactive A Non -Reactive - * Nichole Palacios 05/13/2025 09: 49:51 AM EDT > See phone encounter ?LAB: P-Deidre Dewey Virus (EBV) VCA Antibodies IgG IgM (Collection Date & Time - 05/11/2025 02:29 PM)?EBV IgG >8* Value Reference Range E pstein Dewey Virus (EBV) VCA Antibodies IgG >8.0 H <0.9 - AI * E pstein Dewey Virus (EBV) VCA Antibodies IgM 0.3 <0.9 - AI * Nichole Palacios 05/13/2025 09: 49:51 AM EDT > See phone encounter 3.?Epigastric abdominal pain?LAB: P-Amylase (Collection Date & Time - 05/11/2025 02:29 PM)?Normal* Value Reference Range A mylase 42 28-100 - U/L * Nichole Palacios 05/13/2025 09: 49:51 AM EDT > See phone encounter ?LAB: P-Comprehensive Metabolic Panel (CMP) (Collection Date & Time - 05/11/2025 02:29 PM)?bili 1.4* Value Reference Range A /G Ratio 1.3 1.1-2.5 - * A lbumin 4.2 3.5-5.3 - g/dL * A lkaline Phosphatase 86 35-121 - IU/L * A LT (SGPT) 25 <5-47 - IU/L * A ST (SGOT) 28 <5-40 - IU/L * B ilirubin, Total 1.4 H <0.2-1.2 - mg/dL * B UN 7 6-20 - mg/dL * C alcium 9.3 8.6-10.4 - mg/dL * C hloride 99 97-108 - mmol/L * C O2 27 20-32 - mmol/L * C reatinine 0.79 0.50-1.00 - mg/dL * G lucose 81 65-99 - mg/dL * P otassium 4.1 3.5-5.3 - mmol/L * S odium 137 135-145 - mmol/L * P rotein 7.4 6.0-8.3 - g/dL * e GFR by Creatinine 105 >59 - mL/min/1.73m2 * Nichole Palacios 05/13/2025 09: 49:51 AM EDT > See phone encounter ?LAB: P-Cytomegalovirus (CMV) Antibodies, IgG/IgM (Collection Date & Time - 05/11/2025 02:29 PM)?Reactive* Value Reference Range C ytomegalovirus (CMV) Antibody, IgG Reactive A Non-R eactive - * C ytomegalovirus (CMV) Antibodies, IgM Reactive A Non -Reactive - * Nichole Palacios 05/13/2025 09: 49:51 AM EDT > See phone encounter ?LAB: P-Lipase (Collection Date & Time - 05/11/2025 02:29 PM)?Normal* Value Reference Range L ipase 19.8 13.0-60.0 - U/L * Nichole Palacios 05/13/2025 09: 49:51 AM EDT > See phone encounter 4.?Heartburn? Start Omeprazole Capsule Delayed Release, 40 MG, 1 capsule 1/2 to 1 hour before morning meal, Orally, Once a day, 30 days, 30, Refills 0.??5.?Thrombocytopenia?LAB: P-Comprehensive Metabolic Panel (CMP) (Collection Date & Time - 05/11/2025 02:29 PM)?bili 1.4* Value Reference Range A /G Ratio 1.3 1.1-2.5 - * A lbumin 4.2 3.5-5.3 - g/dL * A lkaline Phosphatase 86 35-121 - IU/L * A LT (SGPT) 25 <5-47 - IU/L * A ST (SGOT) 28 <5-40 - IU/L * B ilirubin, Total 1.4 H <0.2-1.2 - mg/dL * B UN 7 6-20 - mg/dL * C alcium 9.3 8.6-10.4 - mg/dL * C hloride 99 97-108 - mmol/L * C O2 27 20-32 - mmol/L * C reatinine 0.79 0.50-1.00 - mg/dL * G lucose 81 65-99 - mg/dL * P otassium 4.1 3.5-5.3 - mmol/L * S odium 137 135-145 - mmol/L * P rotein 7.4 6.0-8.3 - g/dL * e GFR by Creatinine 105 >59 - mL/min/1.73m2 * Nichole Palacios 05/13/2025 09: 49:51 AM EDT > See phone encounter ?LAB: P-Cytomegalovirus (CMV) Antibodies, IgG/IgM (Collection Date & Time - 05/11/2025 02:29 PM)?Reactive* Value Reference Range C ytomegalovirus (CMV) Antibody, IgG Reactive A Non-R eactive - * C ytomegalovirus (CMV) Antibodies, IgM Reactive A Non -Reactive - * Nichole Palacios 05/13/2025 09: 49:51 AM EDT > See phone encounter 6.?Skin rash? Start Nystatin Cream, 346523 UNIT/GM, 1 application, Externally, Twice a day, 30 grams, Refills 1. ? * Procedure Codes: 8 5025 CBC WITH AUTO DIFF, 31162 STREP A ASSAY W/OPTIC, Modifiers: QW , 1036F TOBACCO NON-USER, 3074F SYST BP LT 130 MM HG, 3078F DIAST BP < 80 MM HG * Follow Up: v ia phone to report progress * Images: Billing Information: * Visit Code: 18328 Office Visit, Est Pt., Level 4. * Procedure Codes: 26941 CBC WITH AUTO DIFF. 00363 STREP A ASSAY W/OPTIC. Modifiers: QW 1036F TOBACCO NON-USER. 3074F SYST BP LT 130 MM HG. 3078F DIAST BP < 80 MM HG. * Electronic signature of Sharda Duenas MD on 10/26/2025 at 02:25 PM EST Sign off status: Pending * Provider: Ramesh Duenas M.D. Date: 0 05/11/2025 Generated for Printi ng/Fawoodyg/eTransmitting on: 1 02:25 PM EST History and Physical Notes * HPI (History of Present Illness) Category Sub-Category Detail Notes Category Not es ENT/respiratory sore throat Pt complains of sore throat for over a month. Associated with fever, nausea and stomach pain. Pt states she did go [place] [facility] [place] and tested negative for strep throat. Pt states she did feel better for a couple days after that but symptoms returned Endocrinology Hypothyroidism Pt here to f/u Cardiology Blood Pressure Elevated Pt here for 6 mo check up on hypertension. Pt states she is doing well and does not have any concerns Examination Category Sub-Category Detail Notes Category Not es ENT/Respiratory Oral cavity : only minimal hernan thema or exudate seen on pharynx Neck : Shotty, nontender ad enopathy Heart : RRR, normal S1 S2 Lungs: clear to auscultatio n bilaterally General Appearance: NAD Nose : normal, no lesions, nares patent Skin : faint red rash in th e center of each axilla with some central clearing Eyes: PERRLA, sclera clear
--- OUTSIDE RECORDS SUMMARY | 2025-05-31 10:45 | XMS_ITS ---
Author Organization [facility] Address [address] [facility] [address] [place] [phone] Care Team Providers Care Taxi Servicer Name Role Phone Johnathan Duenas Primary Care Provider [phone] Results Component Value Reference Range Notes CBC [...] Provider Diagnosis [place] [address] [facility] [address] [place] [phone] 05/31/2025 Johnathan Duenas Thrombocytopenia D69 .6 Assessments Encounter Date Diagnosis (ICD Code) Assessment Notes Treatment Notes Treatment Clinical Notes Section Notes 05/31/2025 Thrombocytopenia (ICD-10 - D69.6) Plan Of Treatment No Information Progress Notes * MOHAN GODINEZHIRALOB:1995 (30 yo F)Acc No.[id number]:05/31/2025 Patient: ISABELA HELMS Provider: Ramesh Duenas M.D. :1995 A ge:29 Y S ex:Female Date:05/31/2025 Address:[address] [id number] Subjective: * Chief Complaints: * 1 . [...] Procedure Codes: 3 6416 CAPILLARY BLOOD DRAW, 06953 CBC WITH AUTO DIFF * Images: Billing Information: * Visit Code: * Procedure Codes: 65713 CAPILLARY BLOOD DRAW. 49007 CBC WITH AUTO DIFF. * Electronic signature of Sharda Duenas MD on 10/26/2025 at 02:27 PM EST Sign off status: Pending * Provider: Ramesh Duenas M.D. Date: 0 05/31/2025 Generated for Reggie stone/Leslie/Bill on: 02:27 PM EST
--- OUTSIDE RECORDS SUMMARY | 2025-08-17 10:25 | XMS_ITS ---
Author Organization [facility] Address [address] [facility] [address] [place] [phone] Care Team Providers Care Chalk Machine Operator Name Role Phone Johnathan Duenas Primary Care Provider [phone] Results Component Value Reference Range Notes P-T4 Free (thyroxine) Reviewed date:08/18/2025 02:54:03 PM Interpretation:Normal Performing Lab: Notes/Report: CLIA: [id number] Nick Brady MD, Ready Mix Truck Driver [address] [place] [address] , [address], [place] [address] Test performed by [employer] Thyroxine Free (free T4) 1.09 0.86-1.76 ng/dL P-Total T3 Reviewed date:08/18/2025 02:54:12 PM Interpretation:Normal Performing Lab: Notes/Report: Test performed by [employer] [address] [place] [address] , [address], [place] [address] Nick Brady MD, Ready Mix Truck Driver CLIA: [id number] Total T3 1.31 0.80-2.00 ng/mL P-TSH Reviewed date:08/18/2025 02:54:22 PM Interpretation:Normal Performing Lab: Notes/Report: Test performed by [employer] [address] [place] [address] , [address], [place] [address] Nick Brady MD, Ready Mix Truck Driver CLIA: [id number] TSH 2.59 0.43-5.25 mU/L REASON FOR VISIT labs Medications Medication SIG (Take, Route, Fr equency, Duration) Notes Start Date End Date Status Ketoconazole 2 % 1 application Synthetic Filament Spinner ally Once a day 05/20/2025 Active Ondansetron [...] Encounter Location Date Provider Diagnosis [facility] [address] [place] [id number] 08/17/2025 Johnathan Duenas Hyperthyroidism E05. 90 Assessments Encounter Date Diagnosis (ICD Code) Assessment Notes Treatment Notes Treatment Clinical Notes Section Notes 08/17/2025 Hyperthyroidism (ICD-10 - E05.90) Plan Of Treatment No Information Progress Notes * JOYCELYN GODINEZOB:1995 (30 yo F)Acc No.[id number]:08/17/2025 Patient: ISABELA HELMS Provider: Ramesh Duenas M.D. :1995 A ge:29 Y S ex:Female Date:08/17/2025 Address:[address] [place], [place] [address] Subjective: * Chief Complaints: * 1 . [...] M.D. Date: Generated for Reggie stone/Leslie/Morrisitting on: 02:25 PM EST
--- OUTSIDE RECORDS SUMMARY | 2025-09-10 02:18 | XMS_ITS | Encounter Summary ---
Author Organization Healthcare Address [address] [place] [address] Care Team Providers Care Meat Department Manager Name Role Phone Pcp, No Primary Care Provider Unavailabl e Reason for Visit * Reason Comments Facial Swelling Encounter Details Date Type Department Care Team ([facility] st Contact Info) Description 09/10/2025 2:18 AM EST - 09/10/2025 9:11 AM EST Emergency [facility] Emergency Department [address] [place] [address] Maday Enriquez, DO [address] [place] [address] Eduardo Luis MD [address] [place] [address] Facial cellulitis (Primary Dx); Preseptal cellulitis of right eye Discharge Disposition: Home or Self Care 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 Tobacco Use Types Packs/Day Years Used Date Smoking Tobacco: Never Smokeless Tobacco: Never Tobacco Cessation:Counseling Given: Not Answered Alcohol Use Standard Drinks/Week Comments Never 0 (1 standard drink = 0.6 oz pur e alcohol) AUDIT-C Answer Date Recorded Q1: How often do you have a drink containing alcohol? Never 09/10/2025 Q2: How many drinks containi ng alcohol do you have on a typical day when you are drinking? Patient does not drink Q3: How often do you have si x or more drinks on one occasion? Never 09/10/2025 Comments Unknown Sex and Gender Information Value Date Recorded Sex Assigned at Female 04/09/2024 10:03 PM EDT Legal Sex Female 6:26 PM EDT Gender Identity Female 04/09/2024 10:03 PM EDT Sexual Orientation Straight 04/09/2024 10 :03 PM EDT documented as of this encounter Last Filed Vital Signs Vital Sign Reading Time Taken Comments Blood Pressure 101/65 09/10/2025 8:03 AM EST Pulse 87 09/10/2025 8:03 AM EST Temperature 37.1 C (98.7 F) 09/10/2025 8:03 AM EST Respiratory Rate 16 09/10/2025 8:03 AM EST Oxygen Saturation 96% 09/10/2025 8:03 AM EST Inhaled Oxygen Concentration - - Weight 98.9 kg (218 lb) 09/10/2025 2:26 AM EST Height 154.9 cm (5' 1 ) 09/10/2025 2:26 AM EST Body Mass Index 41.19 09/10/2025 2:26 AM EST documented in this encounter Functional Status * BMI (Calculated) Answer Date of Assessment Author 41.3 09/10/2025 2:26 AM EST Noah Morales RN * Percent Excess Weight Loss Answer Date of Assessment Author 0 09/10/2025 2:26 AM EST Noah Morales RN * Total Weight Change Percent Answer Date of Assessment Author 2222 09/10/2025 2:26 AM EST Noah Morales RN * Weight Change Since Preop Answer Date of Assessment Author 98.86 09/10/2025 2:26 AM Noah Guo RN * Initial Excess Weight Answer Date of Assessment Author -47.63 09/10/2025 2:26 AM Noah Guo RN * IBW in lbs (Bariatric) Answer Date of Assessment Author 105 09/10/2025 2:26 AM Noah Guo RN * Weight Change Since Last Visit Answer Date of Assessment Author 98.86 09/10/2025 2:26 AM Noah Guo RN * IBW in kg (Bariatric) Answer Date of Assessment Author 47.63 09/10/2025 2:26 AM Noah Guo RN * Percent of IBW Answer Date of Assessment Author 7,323.12 09/10/2025 2:26 AM Noah Guo RN * EBW (kg) Answer Date of Assessment Author 3,486.65 09/10/2025 2:26 AM Noah Guo RN * EBW (lbs) Answer Date of Assessment Author 3,481.44 09/10/2025 2:26 AM Noah Guo RN * General Emergency Care CPG Interventions Question Answer Date of Assessment Author Coping Interventions questions answered;reassurance provided;education/info rmation provided;care explained to patient/family prior to performing 09/10/2025 2:35 AM Noah Guo RN General Care Management calm environment promoted;positioned for comfort;respiratory status monitored 09/10/2025 2:35 AM Noah Guo RN * Acuity/Destination Question Answer Date of Assessment Author Patient Acuity 3 09/10/2025 2:35 AM Noah Lundy RN * Weight Change 24 hrs Answer Date of Assessment Author 98.884 09/10/2025 2:26 AM Noah Guo RN * Vital Signs Question Answer Date of Assessment Author Heart Rate Source Monitor 09/10/2025 6:26 AM Bee Wetzel BP Location Left arm 09/10/2025 6:26 AM Bee Schilling BP Method Automatic 09/10/2025 6:26 AM Bee Schilling MAP (mmHg) 71 09/10/2025 6:26 AM Bee Schilling Patient Position Lying 09/10/2025 6:26 AM Bee Pena * Oxygen Therapy Question Answer Date of Assessment Author SpO2 96 09/10/2025 8:03 AM Andriy Alexander RN Pulse Oximetry Type Continuous 09/10/2025 6:26 AM ES Bee Montano Patient Activity During SpO2 Measurement At rest 09/10/2025 6:26 AM Bee Wetzel Oxygen Therapy None 09/10/2025 8:03 AM EST Andriy Livingston RN * BSA (Calculated - sq m) Answer Date of Assessment Author 2.06 09/10/2025 2:26 AM Noah Guo RN * BMI (Calculated) Answer Date of Assessment Author 41.21 09/10/2025 2:26 AM Noah Guo RN * Height and Weight Question Answer Date of Assessment Author Height 61 09/10/2025 2:26 AM Noah Cardenas RN Weight 3488 09/10/2025 2:26 AM Noah Cardenas RN Height Method Stated 09/10/2025 2:26 AM Noah Morrell RN Weight Method Stated 09/10/2025 2:26 AM EST Noah Lam RN * IBW/kg (Calculated) Male Answer Date of Assessment Author 52.3 09/10/2025 2:26 AM Noah Guo RN * IBW/kg (Calculated) Female Answer Date of Assessment Author 47.8 09/10/2025 2:26 AM Noah Guo RN * PAINAD (Pain Assessment in Advanced Dementia) Question Answer Date of Assessment Author Pain Management Interventions medication (see MAR);care clustered 09/10/2025 4:59 AM Noah Guo RN * Airway Question Answer Date of Assessment Author Airway (WDL) [facility] 09/10/2025 2:41 AM EST Noah Oden RN * Breathing Question Answer Date of Assessment Author Breathing ([facility]) [facility] 09/10/2025 2:41 AM EST Noah Lopez RN * Circulation Question Answer Date of Assessment Author Circulation ([facility]) [facility] 09/10/2025 2:41 AM Noah Guo RN * Disability Question Answer Date of Assessment Author L Pupil Reaction Brisk 09/10/2025 2:35 AM EST Noah Boggs RN L Pupil Size (mm) 3 09/10/2025 2:35 AM Noah Guo RN R Pupil Reaction Brisk 09/10/2025 2:35 AM EST Noah Boggs RN R Pupil Size (mm) 3 09/10/2025 2:35 AM Noah Guo RN Disability (WDL) [facility] 09/10/2025 2:41 AM EST Noah Boggs RN Best Eye Response Spontaneous 09/10/2025 2:41 AM Noah Guo RN Best Verbal Response Oriented 09/10/2025 2:41 AM E Noah Puga RN Best Motor Response Follows commands 09/10/2025 2:41 A M Noah Guo RN Cherry Log Coma Scale Score 15 09/10/2025 2:41 AM Noah Guo RN * Restart Vitals Timer Answer Date of Assessment Author Yes 09/10/2025 8:03 AM Shannon Thrasher RN * IBW/kg (Calculated) Answer Date of Assessment Author 47.8 09/10/2025 2:26 AM Noah Guo RN * Calculated C-SSRS Risk Score (Lifetime/Recent) Answer Date of Assessment Author No Risk Indicated 09/10/2025 2:36 AM Noah Guo RN * AUDIT-C Score Answer Date of Assessment Author 0 09/10/2025 2:34 AM Noah Guo RN * Alcohol Use Question Answer Date of Assessment Author Q1: How often do you have a drink containing alcohol? Never 09/10/2025 2:34 AM Noah Guo RN Q2: How many drinks containing alcohol do you have on a typical day when you are drinking? Patient does not drink 09/10/2025 2:34 AM Noah Guo RN Q3: How often do you have six or more drinks on one occasion? Never 09/10/2025 2:34 AM Noah Guo RN * Learning Assessment Question Answer Date of Assessment Author Education Level College 09/10/2025 2:35 AM Noah Kelley RN Factors that Impact Ability to Learn None 09/10/2025 2:35 AM Noah Guo RN Cultural Considerations None 09/10/2025 2:35 A M Noah Guo RN Druze Considerations None 09/10/2025 2:35 AM Noah Guo RN * Abuse Screen Question Answer Date of Assessment Author Are you or have you been thr eatened or abused physically, emotionally, or sexually by a partner, spouse, or family member? No 09/10/2025 2:35 AM Noah Guo RN * KINDER 1 Fall Risk Factor Assessment Question Answer Date of Assessment Author Presented to ED because of fall 0 2:35 AM Noah Guo RN Age > 70 0 09/10/2025 2:35 AM Noah Cardenas RN Intoxicated with alcohol or substance confusion 0 09/10/2025 2:35 AM Noah Guo RN Ambulates or transfers with assistive devices or assist 0 09/10/2025 2:35 AM Noah Guo RN Unable to ambulate or transfer 0 09/10/2025 2:35 AM Noah Guo RN Nursing judgement 0 09/10/2025 2:35 AM Noah Guo RN KINDER 1 Fall Risk Score 0 09/10/2025 2:35 AM Noah Guo RN * Patient Belongings Placed in Locker Question Answer Date of Assessment Author Belongings at Bedside Retained by patien t and/or family/legal retail sales representative who assumes responsibility 09/10/2025 2:35 AM Noah Guo RN * [place] Suicide Severity Rating Scale Question Answer Date of Assessment Author 1. Wish to be (Past 1 Month) No 2:36 AM Noah Guo RN 2. Non-Specific Active Suici ethan Thoughts (Past 1 Month) No 09/10/2025 2:36 AM Cole Guo RN 6. Suicidal Behavior (Lifetime) No 2:36 AM Noah Guo RN Is patient awake, alert, and able to answer questions appropriately? Yes 09/10/2025 2:36 AM Noah Kelley RN * Vital Signs Question Answer Date of Assessment Author BP 101/65 09/10/2025 8:03 AM Andriy Alexander RN Temp 98.7 09/10/2025 8:03 AM Andriy Alexander RN Temp src Oral 09/10/2025 8:03 AM Andriy Alexander RN Pulse 87 09/10/2025 8:03 AM Andriy Alexander RN Resp 16 09/10/2025 8:03 AM Andriy Alexander RN * Weight in (lb) to have BMI = 25 Answer Date of Assessment Author 132 09/10/2025 2:26 AM Noah Guo RN * BMI (Calculated) Answer Date of Assessment Author 41.3 09/10/2025 2:26 AM Noah Guo RN * Percent Excess Weight Loss Answer Date of Assessment Author 0 09/10/2025 2:26 AM Noah Guo RN * Weight Change Since Preop Answer Date of Assessment Author 98.88 09/10/2025 2:26 AM Noah Guo RN * Initial Excess Weight Answer Date of Assessment Author -47.63 09/10/2025 2:26 AM Noah Guo RN * IBW in kg (Bariatric) Answer Date of Assessment Author 47.63 09/10/2025 2:26 AM Noah Guo RN * IBW in lb (Bariatric) Answer Date of Assessment Author 105 09/10/2025 2:26 AM Noah Guo RN * Weight Change Since Last Visit Answer Date of Assessment Author 98.88 09/10/2025 2:26 AM Noah Guo RN * Percent of IBW Answer Date of Assessment Author 207.62 09/10/2025 2:26 AM Noah Guo RN * EBW (kg) Answer Date of Assessment Author 51.23 09/10/2025 2:26 AM Noah Guo RN * EBW (lb) Answer Date of Assessment Author 113 09/10/2025 2:26 AM Noah Guo RN * Difference in Weight Since Last Visit Answer Date of Assessment Author 98.88 09/10/2025 2:26 AM Noah Guo RN * Temp (in Celsius) for SKAGWAY IV Answer Date of Assessment Author 37.1 09/10/2025 8:03 AM Shannon Thrasher RN * Pain Assessment Question Answer Date of Assessment Author Pain Location Face 09/10/2025 4:59 AM Noah Morrell RN Pain Orientation Right 09/10/2025 4:59 AM Noah Aburto RN Pain Descriptors Pressure 09/10/2025 4:59 AM Noah Aburto RN Pain Frequency Constant/continuous 09/10/2025 4:59 AM Noah Guo RN Patient's Stated Pain Goal 2 09/10/2025 4:59 AM Noah Guo RN Pain Type Acute pain 09/10/2025 4:59 AM Noah Cardenas RN Pain Score 0 09/10/2025 6:26 AM Noah Cardenas RN Pain Assessment 0-10 (Adult DVPRS/Peds 0-10) 09/10/2025 6:26 AM Noah Guo RN * IBW/kg (Calculated) Answer Date of Assessment Author 47.8 09/10/2025 2:26 AM Noah Guo RN * Adult Low Range Vt 6mL/kg Answer Date of Assessment Author 286.8 09/10/2025 2:26 AM Noah Guo RN * Adult Moderate Range Vt 8mL/kg Answer Date of Assessment Author 382.4 09/10/2025 2:26 AM Noah Guo RN * Adult High Range Vt 10mL/kg Answer Date of Assessment Author 478 09/10/2025 2:26 AM Noah Guo RN * Carley Coma Scale Numeric Answer Date of Assessment Author 15 09/10/2025 2:41 AM Noah Guo RN * Vitals Timer Question Answer Date of Assessment Author Restart Vitals Timer Yes 09/10/2025 8:03 AM Andriy Mars RN Restart Vitals Timer Yes 09/10/2025 6:26 AM Bee Cintron * Hourly Rounding Question Answer Date of Assessment Author Activity Assistance Patient independent 09/10/20 6:26 AM Noah Guo RN Repositioned Turns self 09/10/2025 6:26 AM Noah Guo RN Head of Bed Elevated HOB 30 09/10/2025 6:26 AM Noah Guo RN Toileting Independent 09/10/2025 6:26 AM Noah Guo RN Call Light Oriented to call light;Call light present and within reach 09/10/2025 6:26 AM Noah Guo RN Rest/ Sleep Awake;No problem identified 09/10/2025 6:26 AM Noah Guo RN Rest/ Sleep Enhancement Care clustered t o minimize awakenings 09/10/2025 6:26 AM Noah Guo RN Completed Hourly Rounding Yes 09/10/2025 6:26 AM Noah Guo RN Plan of Care Reviewed With Patient 09/10/2025 6:26 AM Noah Guo RN * General Emergency Care CPG Interventions Question Answer Date of Assessment Author Coping Interventions questions answered;reassurance provided;education/info rmation provided;care explained to patient/family prior to performing 09/10/2025 2:35 AM Noah Guo RN General Care Management calm environment promoted;positioned for comfort;respiratory status monitored 09/10/2025 2:35 AM Noah Guo RN * Vital Signs Question Answer Date of Assessment Author Heart Rate Source Monitor 09/10/2025 6:26 AM Bee Wetzel BP Location Left arm 09/10/2025 6:26 AM Bee Schilling BP Method Automatic 09/10/2025 6:26 AM Bee Schilling MAP (mmHg) 71 09/10/2025 6:26 AM Bee Schilling Patient Position Lying 09/10/2025 6:26 AM EST Bee Manriquez * Oxygen Therapy Question Answer Date of Assessment Author SpO2 96 09/10/2025 8:03 AM Andriy Alexander RN Pulse Oximetry Type Continuous 09/10/2025 6:26 AM ES T Bee Montiel Patient Activity During SpO2 Measurement At rest 09/10/2025 6:26 AM Bee Wetzel Oxygen Therapy None 09/10/2025 8:03 AM EST Andriy Livingston RN * BSA (Calculated - sq m) Answer Date of Assessment Author 2.06 09/10/2025 2:26 AM Noah Guo RN * BMI (Calculated) Answer Date of Assessment Author 41.21 09/10/2025 2:26 AM Noah Guo RN * Height and Weight Question Answer Date of Assessment Author Height 61 09/10/2025 2:26 AM Noah Cardenas RN Weight 3488 09/10/2025 2:26 AM Noah Cardenas RN * PAINAD (Pain Assessment in Advanced Dementia) Question Answer Date of Assessment Author Pain Management Interventions medication (see MAR);care clustered 09/10/2025 4:59 AM Noah Guo RN * Disability Question Answer Date of Assessment Author L Pupil Reaction Brisk 09/10/2025 2:35 AM Noah Aburto RN L Pupil Size (mm) 3 09/10/2025 2:35 AM Noah Guo RN R Pupil Reaction Brisk 09/10/2025 2:35 AM EST Noah Boggs RN R Pupil Size (mm) 3 09/10/2025 2:35 AM Noah Guo RN Best Eye Response Spontaneous 09/10/2025 2:41 AM Noah Guo RN Best Verbal Response Oriented 09/10/2025 2:41 AM Noah Tian RN Best Motor Response Follows commands 09/10/2025 2:41 A M Noah Guo RN Cherry Log Coma Scale Score 15 09/10/2025 2:41 AM Noah Guo RN * Restart Vitals Timer Answer Date of Assessment Author Yes 09/10/2025 8:03 AM Shannon Thrasher RN * Calculated C-SSRS Risk Score (Lifetime/Recent) Answer Date of Assessment Author No Risk Indicated 09/10/2025 2:36 AM Noah Guo RN * Learning Assessment Question Answer Date of Assessment Author Education Level College 09/10/2025 2:35 AM Noah Kelley RN Factors that Impact Ability to Learn None 09/10/2025 2:35 AM Noah Guo RN Cultural Considerations None 09/10/2025 2:35 A M Noah Guo RN Druze Considerations None 09/10/2025 2:35 AM Noah Guo RN * AMINA 1 Fall Risk Factor Assessment Question Answer Date of Assessment Author Presented to ED because of fall 0 2:35 AM Noah Guo RN Age > 70 0 09/10/2025 2:35 AM Noah Cardenas RN Intoxicated with alcohol or substance confusion 0 09/10/2025 2:35 AM Noah Guo RN Ambulates or transfers with assistive devices or assist 0 09/10/2025 2:35 AM Noah Guo RN Unable to ambulate or transfer 0 09/10/2025 2:35 AM Noah Guo RN Nursing judgement 0 09/10/2025 2:35 AM Noah Guo RN KINDER 1 Fall Risk Score 0 09/10/2025 2:35 AM Noah Guo RN * Patient Belongings Placed in Locker Question Answer Date of Assessment Author Belongings at Bedside Retained by raf ray and/or family/legal retail sales representative who assumes responsibility 09/10/2025 2:35 AM Noah Guo RN * [place] Suicide Severity Rating Scale Question Answer Date of Assessment Author 1. Wish to be (Past 1 Month) No 025 2:36 AM Noah Guo RN 2. Non-Specific Active Suici ethan Thoughts (Past 1 Month) No 09/10/2025 2:36 AM Cole Guo RN 6. Suicidal Behavior (Lifetime) No 2:36 AM Noah Guo RN * Vital Signs Question Answer Date of Assessment Author BP 101/65 09/10/2025 8:03 AM Andriy Alexander RN Temp 98.7 09/10/2025 8:03 AM Andriy Alexander RN Temp src Oral 09/10/2025 8:03 AM Andriy Alexander RN Pulse 87 09/10/2025 8:03 AM Andriy Alexander RN Resp 16 09/10/2025 8:03 AM Andriy Alexander RN * Weight in (lb) to have BMI = 25 Answer Date of Assessment Author 132 09/10/2025 2:26 AM Noah Guo RN * Pain Assessment Question Answer Date of Assessment Author Pain Location Face 09/10/2025 4:59 AM Noah Morrell RN Pain Orientation Right 09/10/2025 4:59 AM Noah Aburto RN Pain Descriptors Pressure 09/10/2025 4:59 AM Noah Aburto RN Pain Frequency Constant/continuous 09/10/2025 4:59 AM Noah Guo RN Patient's Stated Pain Goal 2 09/10/2025 4:59 AM Noah Guo RN Pain Type Acute pain 09/10/2025 4:59 AM Noah Cardenas RN Pain Score 0 09/10/2025 6:26 AM Noah Cardenas RN Pain Assessment 0-10 (Adult DVPRS/Peds 0-10) 09/10/2025 6:26 AM Noah Guo RN * Hourly Rounding Question Answer Date of Assessment Author Activity Assistance Patient independent 09/10/20 6:26 AM Noha Guo RN Repositioned Turns self 09/10/2025 6:26 AM Noah Guo RN Head of Bed Elevated HOB 30 09/10/2025 6:26 AM Noah Guo RN Toileting Independent 09/10/2025 6:26 AM oNah Guo RN Call Light Oriented to call light;Call light present and within reach 09/10/2025 6:26 AM Noah Guo RN Rest/ Sleep Awake;No problem identified 09/10/2025 6:26 AM Noah Guo RN Rest/ Sleep Enhancement Care clustered t o minimize awakenings 09/10/2025 6:26 AM Noah Guo RN Completed Hourly Rounding Yes 09/10/2025 6:26 AM Noah Guo RN Plan of Care Reviewed With Patient 09/10/2025 6:26 AM Noah Guo RN documented as of this encounter Mental Status * BMI (Calculated) Answer Entry Date Author 41.3 09/10/2025 2:26 AM Noah Guo RN * Percent Excess Weight Loss Answer Entry Date Author 0 09/10/2025 2:26 AM Noah Guo RN * Total Weight Change Percent Answer Entry Date Author 222109/10/2025 2:26 AM Noah Guo RN * Weight Change Since Preop Answer Entry Date Author 98.86 09/10/2025 2:26 AM Noah Guo RN * Initial Excess Weight Answer Entry Date Author -47.63 09/10/2025 2:26 AM Noah Guo RN * IBW in lbs (Bariatric) Answer Entry Date Author 105 09/10/2025 2:26 AM Noah Guo RN * Weight Change Since Last Visit Answer Entry Date Author 98.86 09/10/2025 2:26 AM Noah Guo RN * IBW in kg (Bariatric) Answer Entry Date Author 47.63 09/10/2025 2:26 AM Noah Guo RN * Percent of IBW Answer Entry Date Author 7,323.12 09/10/2025 2:26 AM Noah Guo RN * EBW (kg) Answer Entry Date Author 3,486.65 09/10/2025 2:26 AM Noah Guo RN * EBW (lbs) Answer Entry Date Author 3,481.44 09/10/2025 2:26 AM Noah Guo RN * General Emergency Care CPG Interventions Question Answer Entry Date Author Coping Interventions questions answered;reassurance provided;education/infor mation provided;care explained to patient/family prior to performing 09/10/2025 2:35 AM Noah Guo RN General Care Management calm environment promoted;positioned for comfort;respiratory status monitored 09/10/2025 2:35 AM Noah Guo RN * Acuity/Destination Question Answer Entry Date Author Patient Acuity 3 09/10/2025 2:35 AM Noah Lundy RN Triage Complete Triage complete 09/10/2025 2:35 AM Noah Guo RN ED Destination Main 09/10/2025 2:35 AM Noah Lundy RN * Weight Change 24 hrs Answer Entry Date Author 98.884 09/10/2025 2:26 AM Noah Guo RN * Vital Signs Question Answer Entry Date Author Heart Rate Source Monitor 09/10/2025 6:26 AM Bee Wetzel BP Location Left arm 09/10/2025 6:26 AM Bee Schilling BP Method Automatic 09/10/2025 6:26 AM Bee Schilling MAP (mmHg) 71 09/10/2025 6:26 AM Bee Schilling Patient Position Lying 09/10/2025 6:26 AM Bee Pena * Oxygen Therapy Question Answer Entry Date Author SpO2 96 09/10/2025 8:03 AM EST Andriy Velazco, RN Pulse Oximetry Type Continuous 09/10/2025 6:26 AM ES Bee Montano Patient Activity During SpO2 Measurement At rest 09/10/2025 6:26 AM Bee Wetzel Oxygen Therapy None 09/10/2025 8:03 AM EST Andriy Livingston, RN * BSA (Calculated - sq m) Answer Entry Date Author 2.06 09/10/2025 2:26 AM Noah Guo RN * BMI (Calculated) Answer Entry Date Author 41.21 09/10/2025 2:26 AM Noah Guo RN * Height and Weight Question Answer Entry Date Author Height 61 09/10/2025 2:26 AM Noah Cardenas RN Weight 3488 09/10/2025 2:26 AM Noah Cardenas RN Height Method Stated 09/10/2025 2:26 AM Noah Morrell RN Weight Method Stated 09/10/2025 2:26 AM Noah Morrell RN * IBW/kg (Calculated) Male Answer Entry Date Author 52.3 09/10/2025 2:26 AM Noah Guo RN * IBW/kg (Calculated) Female Answer Entry Date Author 47.8 09/10/2025 2:26 AM Noah Guo RN * PAINAD (Pain Assessment in Advanced Dementia) Question Answer Entry Date Author Pain Management Interventions medication (see MAR);care clustered 09/10/2025 4:59 AM Noah Guo RN * Airway Question Answer Entry Date Author Airway (WDL) [facility] 09/10/2025 2:41 AM EST Noah Oden RN * Breathing Question Answer Entry Date Author Breathing ([facility]) [facility] 09/10/2025 2:41 AM EST Noah Lopez RN * Circulation Question Answer Entry Date Author Circulation ([facility]) [facility] 09/10/2025 2:41 AM Noah Guo RN * Disability Question Answer Entry Date Author L Pupil Reaction Brisk 09/10/2025 2:35 AM Noah Aburto RN L Pupil Size (mm) 3 09/10/2025 2:35 AM Noah Guo RN R Pupil Reaction Brisk 09/10/2025 2:35 AM EST Noah Boggs RN R Pupil Size (mm) 3 09/10/2025 2:35 AM Noah Guo RN Disability (WDL) [facility] 09/10/2025 2:41 AM EST Noah Boggs RN Best Eye Response Spontaneous 09/10/2025 2:41 AM Noah Guo RN Best Verbal Response Oriented 09/10/2025 2:41 AM E Noah Puga RN Best Motor Response Follows commands 09/10/2025 2:41 A M Noah Guo RN Cherry Log Coma Scale Score 15 09/10/2025 2:41 AM Noah Guo RN * Restart Vitals Timer Answer Entry Date Author Yes 09/10/2025 8:03 AM Shannon Thrasher RN * IBW/kg (Calculated) Answer Entry Date Author 47.8 09/10/2025 2:26 AM Noah Guo RN * Alcohol Use Concern Calculation Answer Entry Date Author 1 09/10/2025 2:34 AM Noah Guo RN * Calculated C-SSRS Risk Score (Lifetime/Recent) Answer Entry Date Author No Risk Indicated 09/10/2025 2:36 AM Noah uGo RN * Skip to questions 9-10? Answer Entry Date Author 1 09/10/2025 2:34 AM Noah Guo RN * Departure Condition Question Answer Entry Date Author Mobility at Departure Ambulatory 09/10/2025 8:03 AM Andriy Thrasher RN Patient Teaching Discharge instructio ns reviewed;Follow-up care reviewed;Patient verbalized understanding 09/10/2025 8:03 AM Andriy Thrasher RN Departure Mode With family or spouse 09/10/2025 8:03 AM Andriy Thrasher RN * Restart Pain Assessment Timer Answer Entry Date Author Yes 09/10/2025 6:26 AM Noah Guo RN * AMINA 1 Fall Risk Factor Assessment Question Answer Entry Date Author Presented to ED because of fall 0 2:35 AM Noah Guo RN Age > 70 0 09/10/2025 2:35 AM Noah Cardenas RN Intoxicated with alcohol or substance confusion 0 09/10/2025 2:35 AM Noah Guo RN Ambulates or transfers with assistive devices or assist 0 09/10/2025 2:35 AM Noah Guo RN Unable to ambulate or transfer 0 09/10/2025 2:35 AM Noah Guo RN Nursing judgement 0 09/10/2025 2:35 AM Noah Guo RN KINDER 1 Fall Risk Score 0 09/10/2025 2:35 AM Noah Guo RN * Patient Belongings Placed in Locker Question Answer Entry Date Author Belongings at Bedside Retained by raf ray and/or family/legal retail sales representative who assumes responsibility 09/10/2025 2:35 AM Noah Guo RN * MULTIPLE SLIDE OPERATOR Information Question Answer Entry Date Author Mode of Arrival Ambulance 09/10/2025 2:23 AM Noah Kelley RN * [place] Suicide Severity Rating Scale Question Answer Entry Date Author 1. Wish to be (Past 1 Month) No 025 2:36 AM Noah Guo RN 2. Non-Specific Active Suici ethan Thoughts (Past 1 Month) No 09/10/2025 2:36 AM Cole Guo RN 6. Suicidal Behavior (Lifetime) No 2:36 AM Noah Guo RN Is patient awake, alert, and able to answer questions appropriately? Yes 09/10/2025 2:36 AM Noah Kelley RN * Vital Signs Question Answer Entry Date Author BP 101/65 09/10/2025 8:03 AM Andriy Alexander RN Temp 98.7 09/10/2025 8:03 AM Andriy Alexander RN Temp src Oral 09/10/2025 8:03 AM Andriy Alexander RN Pulse 87 09/10/2025 8:03 AM Andriy Alexander RN Resp 16 09/10/2025 8:03 AM Andriy Alexander RN * Quick Updates Question Answer Entry Date Author Quick Updates - Free Text patient family on their way here to transport her home. 09/10/2025 6:27 AM Noah Guo RN * Weight in (lb) to have BMI = 25 Answer Entry Date Author 132 09/10/2025 2:26 AM Noah Guo RN * BMI (Calculated) Answer Entry Date Author 41.3 09/10/2025 2:26 AM Noah Guo RN * Percent Excess Weight Loss Answer Entry Date Author 0 09/10/2025 2:26 AM Noah Guo RN * Weight Change Since Preop Answer Entry Date Author 98.88 09/10/2025 2:26 AM Noha Guo RN * Initial Excess Weight Answer Entry Date Author -47.63 09/10/2025 2:26 AM Noah Guo RN * IBW in kg (Bariatric) Answer Entry Date Author 47.63 09/10/2025 2:26 AM Noah Guo RN * IBW in lb (Bariatric) Answer Entry Date Author 105 09/10/2025 2:26 AM Noah Guo RN * Weight Change Since Last Visit Answer Entry Date Author 98.88 09/10/2025 2:26 AM Noah Guo RN * Percent of IBW Answer Entry Date Author 207.62 09/10/2025 2:26 AM Noah Guo RN * EBW (kg) Answer Entry Date Author 51.23 09/10/2025 2:26 AM Noah Guo RN * EBW (lb) Answer Entry Date Author 113 09/10/2025 2:26 AM Noah Guo RN * Difference in Weight Since Last Visit Answer Entry Date Author 98.88 09/10/2025 2:26 AM Noah Guo RN * Temp (in Celsius) for SKAGWAY IV Answer Entry Date Author 37.1 09/10/2025 8:03 AM Shannon Thrasher RN * Pain Assessment Question Answer Entry Date Author Pain Location Face 09/10/2025 4:59 AM Noah Guo RN Pain Orientation Right 09/10/2025 4:59 AM Noah Guo RN Pain Descriptors Pressure 09/10/2025 4:59 AM Noah Guo RN Pain Frequency Constant/continuous 09/10/2025 4 :59 AM Noah Guo RN Patient's Stated Pain Goal 2 09/10/2025 4:59 AM Noah Guo RN Pain Type Acute pain 09/10/2025 4:59 AM Noah Guo RN Pain Score 0 09/10/2025 6:26 AM Noah Guo RN Pain Assessment 0-10 (Adult DVPRS/Pe ds 0-10) 09/10/2025 6:26 AM Noah Guo RN * IBW/kg (Calculated) Answer Entry Date Author 47.8 09/10/2025 2:26 AM Noah Guo RN * Adult Low Range Vt 6mL/kg Answer Entry Date Author 286.8 09/10/2025 2:26 AM Noah Guo RN * Adult Moderate Range Vt 8mL/kg Answer Entry Date Author 382.4 09/10/2025 2:26 AM Noah Guo RN * Adult High Range Vt 10mL/kg Answer Entry Date Author 478 09/10/2025 2:26 AM Noah Guo RN * Cherry Log Coma Scale Numeric Answer Entry Date Author 15 09/10/2025 2:41 AM Noah Guo RN * Vitals Timer Question Answer Entry Date Author Restart Vitals Timer Yes 09/10/2025 8:03 AM Andriy Mars RN Restart Vitals Timer Yes 09/10/2025 6:26 AM E Bee Saldivar * Hourly Rounding Question Answer Entry Date Author Activity Assistance Patient independent 09/10/20 6:26 AM Noah Guo RN Repositioned Turns self 09/10/2025 6:26 AM Noah Guo RN Head of Bed Elevated HOB 30 09/10/2025 6:26 AM Noah Guo RN Toileting Independent 09/10/2025 6:26 AM Noah Guo RN Call Light Oriented to call light;Call light present and within reach 09/10/2025 6:26 AM Noah Guo RN Rest/ Sleep Awake;No problem identified 09/10/2025 6:26 AM Noah Guo RN Rest/ Sleep Enhancement Care clustered t o minimize awakenings 09/10/2025 6:26 AM Noah Guo RN Completed Hourly Rounding Yes 2024 6:26 AM Noah Guo RN Plan of Care Reviewed With Patient 09/10/2025 6:26 AM Noah Guo RN documented in this encounter Discharge Instructions * Discharge Instructions* Chris Valdovinos APRN - 09/10/2025 6:24 AM EST Please follow-up with ophthalmology and the ENT clinic as recommended. Rest and recover as able. Please increase your water intake. Scribner use of warm and/or cold compresses. Primary pain control should be accomplished with OTC Tylenol and/or ibuprofen, which can be alternated every 4-6 hours as needed for pain. Please complete your antibiotic regimen in its entirety. It is important for you to follow-up with your primary care provider for re- evaluation and recheck. Return for any acute/severe worsening. Of course, you may return to the emergency department any time for new or concerning symptoms. We are always open and available to you. All of your medical information here is available to you via the [employer] Internet portal. Please make sure that you are registered for access to this. documented in this encounter Medications at Time of Discharge busPIRone (Buspar) 10 MG tablet 1 tablet. 5 omeprazole (PriLOSEC) [address] capsule 1 (one) time each day at the same time. 5 senna (Senokot) 8.6 MG tablet TAKE ONE TABLET BY MOUTH TWICE DAILY NEEDED FOR constipation 4 fluconazole (Diflucan) 150 MG tabletIndications:F acial cellulitis,Presepta l cellulitis of right eye Take 1 tablet by mouth 1 time for 1 dose. 1 tablet 5 09/10/20 25 ondansetron ODT (Zofran-ODT) 4 MG disintegrating tablet Dissolve 1 tablet on the tongue every 6 hours as needed for nausea. 12 tablet 5 10/10/20 25 amoxicillin-clavula jeanne (Augmentin) 875-125 MG tabletIndications:F acial cellulitis,Presepta l cellulitis of right eye Take 1 tablet by mouth 2 times a day for 10 days. 20 tablet 5 09/15/20 25 documented as of this encounter Miscellaneous Notes * Consults - Calvin Hargrove MD - 09/10/2025 5:16 AM ESTAssociated Order(s): Consult to ENT/Otolaryngology Consult to ENT/Otolaryngology Consult performed by: Calvin Hargrove MD Consult ordered by: Chris Valdovinos APRN Otolaryngology-Head and Neck Surgery Consult Note 09/10/25 HISTORY OF PRESENT ILLNESS Jillian Cisneros is a 29 y.o. female with past medical history notable for hidradenitis suppurativa, anxiety, and depression who presents to the emergency department in transfer for left-sided facial swelling She reports that this began with a bump on right face which gradually grew in size over about a week until she ruptured it about 36 hours ago or so with some associated purulent discharge. However, she began to note some significant facial swelling in this area which has spread since then. She has not had any antibiotics prior to presentation to outside hospital and does feel slightly better since receiving them. She reports that her vision is slightly blurry but becomes subjectively normal when her eyelids are opened for her. She denies any diplopia She denies any other pertinent past medical history or history of prior facial infections REVIEW OF SYSTEMS A 14-point review of systems was performed and is negative except as noted in HPI. PAST MEDICAL HISTORY Past 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[1] PAST SURGICAL HISTORY Surgical History[2] ALLERGIES Allergies[3] FAMILY HISTORY Reviewed and non-contributory SOCIAL HISTORY Alcohol: Denies Tobacco: Denies Illicit Drugs: Denies MEDICATIONS: Current Medications[4] PHYSICAL EXAMINATION: 09/10/2025 2:26 AM Vitals Systolic 114 Diastolic 78 Heart Rate 110 Temp 37.8 C Resp 18 Height (cm) 154.9 cm Weight (kg) 98.884 kg BMI 41.19 kg/m2 BSA (m2) 2.06 m2 BMI: Body mass index is 41.19 kg/m??. Gen: Alert, interactive, nontoxic Head: Normocephalic, atraumatic Eyes: No scleral icterus, no conjunctival injection; PERRL and EOMI without gaze restriction, thereis some mild right sided isiah-ocular edema which extends from a focus of erythema and induration onthe skin of the right cheek Ears: Pinnae without laceration or deformity, no drainage Nose: Nares patent, no drainage Mouth: Mucous membranes pink and moist, tongue with full ROM Neck: Soft, supple, no palpable masses Chest: Symmetric chest rise, unlabored breathing CV: No cyanosis, no edema Ext: Full ROM, no gross deformities Skin: Warm, well perfused Psych: Appropriate mood and affect Neuro: CN II-XII grossly intact LABS CBC WBC 7.98 Hb 12.7 Plt 185 Hct 36.7 ANC 5.96 INR 1.1, PTT ??, Anti-Xa ?? BMP Na 133 (L) Cl 100 BUN 8 Glu 104 (H) K 3.9 Co2 25 Cr 0.57 (L) Ca 8.8 (L) iCa ?? Mg ??, Phos ?? Lactate ?? IMAGING CT head ([facility]) 09/09 Formal radiology review is not available at this time. Independent review demonstrates significant for right-sided preseptal inflammation. There was no evidence of a subperiosteal abscess. No evidence of adjacent sinonasal inflammation ASSESSMENT/PLAN Jillian Cisneros is a 29 y.o. female who presents to the emergency department with about 1 day of right-sided facial swelling after rupturing a cyst/superficial cutaneous abscess. She has been evaluatedby ophthalmology with reassuring eye exam. Her exam and imaging are consistent with preseptal orbital cellulitis, Collins class 1. No acute surgical intervention is indicated at this time, and the patient is appropriate for outpatient management with trial of antibiotics - No acute ENT intervention - Recommend 10-14 days of PO antibiotics, consider Augmentin vs clindamycin - Patient requested diflucan with antibiotics given prior history of fungal infection - Will coordinate outpatient follow-up in a few days - OK for DC from ENT standpoint; return precautions discussed Thank you for involving us in the care of this patient. Please call with any questions or concerns. Calvin Hargrove MD Otolaryngology, PGY-3 [1] Past 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: Diagnosis Date Anxiety Depression Hidradenitis suppurativa PTSD (post-traumatic stress disorder) [2] Past Surgical History: Procedure Laterality Date ANKLE SURGERY Left APPENDECTOMY CHOLECYSTECTOMY TONSILLECTOMY [3] No Known Allergies [4] Current Facility-Administered Medications: ampicillin-sulbactam (Unasyn) 3 g in sodium chloride 0.9% 100 mL IVPB (vial adapter required), 3 g,Intravenous, Once, Chirs Valdovinos, BUNDLE BREAKER, Last Rate: 220 mL/hr at 09/10/25 0448, 3 g at 09/10/25 0448 ketorolac (Toradol) injection 15 mg, 15 mg, Intravenous, Once, Chris Valdovinos, BUNDLE BREAKER No current outpatient medications on file. Cosigned by Burton Freeman MD at 09/10/2025 12:14 PM EST Associated attestation - Burton Freeman MD - 09/10/2025 12:14 PM EST I saw and evaluated the patient with the resident/fellow. I discussed the case with the resident/fellow and agree with the findings and plan as documented. * Consults - Julio Christian MD - 09/10/2025 3:44 AM ESTAssociated Order(s): Consult to Ophthalmology Images from the original note were not included. Consult to Ophthalmology Consult performed by: Julio Christian MD Consult ordered by: Chris Valdovinos APRN [facility] Department of Ophthalmology Ophthalmology Consult Note Requesting Service: ED Reason for Consult: Concern for post septal cellulitis Exam Date: 09/10/2025 4:26 AM History of Present Illness: Jillian Cisneros is a 29 y.o. female with PMH anxiety, depression, hidradenitis suppuravativa and no significant POH presenting with as transfer from OSH for concern for left sided orbital cellulitis. Patient reports symptoms began several weeks with a bump on her right upper cheek that steadily grew.The abscess ruptured on and began leaking purulent drainage. The patient also reports pressing on the surrounding area forcefully on in order to help the abscess continue to drain. She reports systemic symptoms such as mild fever and chills that began yesterday. She endorses mild blurred vision and pain with abduction of the left eye. She denies loss of vision, eye redness, or di plopia. She denied any sinus congestion or drainage. Past Medical & Surgical History Past 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[1] Surgical History[2] Physical Examination: Vitals Blood pressure 114/78, pulse 110, temperature 37.8 ??C (100 ??F), temperature source Oral, resp. rate 18, height 1.549 m (5' 1 ), weight 98.9 kg (218 lb), SpO2 96%. General In no acute distress Neurology Alert & Oriented x3 Base Eye Exam Visual Acuity (Snellen - Linear) Right Left Dist sc 20/20 -1 20/20 Tonometry (Tonopen, 3:53 AM) Right Left Pressure 14 17 Pupils Pupils Shape React APD Right PERRL Round Brisk None Left PERRL Round Brisk None Visual Kwan Right Left Full Full Extraocular Movement Right Left Full Full Neuro/Psych Oriented x3: Yes Dilation Both eyes: 1% Tropicamide, 2.5% Phenylephrine @ 3:45 AM Slit Lamp and Fundus Exam External Exam Right Left External Inferior periobital and facial edema Normal Slit Lamp Exam Right Left Lids/Lashes Mild lid swelling Normal for age Conjunctiva/Sclera Normal Normal Cornea Clear and compact Clear and compact Anterior Chamber Deep and quiet Deep and quiet Iris Normal pupil size and shape Normal pupil size and shape Lens Clear Clear Anterior Vitreous Normal Normal Fundus Exam Right Left Disc No edema; no vascularization; good color No edema; no vascularization; good color Macula Normal reflex; without edema Normal reflex; without edema Vessels Perfused; no tortuosity or abnormality Perfused; no tortuosity or abnormality Periphery Attached; no retinal or choroidal lesions Attached; no retinal or choroidal lesions Assessment & Plan: #Preseptal cellulitis OD - no post-septal signs including diplopia, vision loss, orbital pain, proptosis or limitation of EOM, CT Orbits showing left sided facial cellulitis, no proptosis seen. - no leukocytosis on CBC - warm compresses at least 6 times per day - Consider starting Augmentin, 875mg bid for a 10-14 day course - discussed return precautions of post-septal signs as above. - Patient to follow up with local eye doctor after discharge Thank you for this consult. Please call with any further questions. Julio Christian MD Ophthalmology, PGY2 For a list of common ophthalmology abbreviations, please refer to: [email or web address] [1] Past 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: Diagnosis Date Anxiety Depression Hidradenitis suppurativa PTSD (post-traumatic stress disorder) [2] Past Surgical History: Procedure Laterality Date ANKLE SURGERY Left APPENDECTOMY CHOLECYSTECTOMY TONSILLECTOMY Cosigned by Wyatt Otero MD at 09/10/2025 5:36 AM EST Associated attestation - Wyatt Otero MD - 09/10/2025 5:36 AM EST Signature only. * ED Provider Notes - Jazlyn Chrisrafa Castaneda APRN - 09/10/2025 2:18 AM EST Images from the original note were not included. - HPI Chief Complaint Patient presents with Facial Swelling This is a 29-year-old female patient, with medical history as documented below. She has been sent here as a transfer patient via ground EMS from [facility] for evaluation of facial cellulitis which started yesterday after she attempted to drain a small abscess on the right side of her face. She reports that this cyst-like structure has been present for a long time, but was biggerand more uncomfortable since her recent foot surgery. She reports waking yesterday morning with some facial swelling and this progressed rapidly throughout the day encompassing her right ocular region as well as her right ear and downward onto her neck. Reports sharp and burning pain to these areas. Her pain seems to be worsened with movements and palpation. She denies any changes, shortness of breath, or voice changes. Patient History Past 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[1] Surgical History[2] Family History[3] 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[4] Allergies: Allergies[5] Physical Exam ED Triage Vitals [09/10/25 0226] Temp Heart Rate Resp BP 37.8 ??C (100 ??F) 110 18 114/78 SpO2 Temp Source Heart Rate Source Patient Position 96 % Oral -- Sitting BP Location FiO2 (%) Left arm -- Physical Exam Vitals and nursing note reviewed. Constitutional: General: She is not in acute distress. Appearance: Normal appearance. She is well-developed and well-groomed. She is ill-appearing. She isnot toxic-appearing. HENT: Head: Normocephalic and atraumatic. Right Ear: External ear normal. Left Ear: External ear normal. Nose: Nose normal. Mouth/Throat: Mouth: Mucous membranes are moist. Pharynx: Oropharynx is clear. Eyes: Extraocular Movements: Extraocular movements intact. Cardiovascular: Rate and Rhythm: Regular rhythm. Tachycardia present. Pulses: Normal pulses. Radial pulses are 2+ on the right side and 2+ on the left side. Heart sounds: Normal heart sounds. Pulmonary: Effort: Pulmonary effort is normal. Breath sounds: Normal breath sounds. Abdominal: Palpations: Abdomen is soft. Musculoskeletal: General: Normal range of motion. Cervical back: Normal range of motion and neck supple. Tenderness present. Lymphadenopathy: Cervical: Cervical adenopathy present. Skin: General: Skin is warm and dry. Capillary Refill: Capillary refill takes less than 2 seconds. Neurological: General: No focal deficit present. Mental Status: She is alert and oriented to person, place, and time. GCS: GCS eye subscore is 4. GCS verbal subscore is 5. GCS motor subscore is 6. Sensory: Sensation is intact. Motor: Motor function is intact. Coordination: Coordination is intact. Psychiatric: Attention and Perception: Attention and perception normal. Mood and Affect: Mood and affect normal. Speech: Speech normal. Behavior: Behavior normal. Behavior is cooperative. Thought Content: Thought content normal. Cognition and Memory: Cognition and memory normal. Judgment: Judgment normal. Cherry Log Coma Scale Score: 15 ED Course & MDM This patient was seen and evaluated in this ED in conjunction with Dr. Enriquez. - [facility] records were reviewed and used in this MDM. This did include review of the ED record, MAR, laboratory workup, radiology imaging and radiology reports, in addition to EMTALA records. Differential Diagnosis: Can include, but is not limited to facial cellulitis, preseptal cellulitis,orbital cellulitis, NSTI, mastoiditis. In order to fully explore the differential diagnosis the following treatments and tests were ordered: Laboratory workup as below was ordered reviewed by me. No urgent or actionable items were identified. The patient was provided multimodal pain control while here in the emergency department, and this did include dosing with IV fentanyl. We did also continue her dosing with IV antibiotics with Unasyn. Given the concern for orbital involvement, we did consult with the [facility] team. We had aninteractive discussion regarding all the above information. They did come to the ED to see the patient. Please see their note for specifics. Given the extensive facial involvement, we did also consult with the on-call Face (ENT) team for evaluation of this patient and treatment recommendations. We had an interactive discussion regarding all the above information. They did also come to the ED to see the patient. Please see their note forspecifics. Ultimately, the patient was deemed stable and eligible for discharge with outpatient follow-up. Shewas given recommendations for antibiotic therapy. She was also given return precautions. Of course, the patient may return to the emergency department any time for new or concerning symptoms. The patient verbalized understanding and agreement with this plan at this time. ED Medication Administration from 09/09/2025 0409 to 09/10/2025 0625 Date/Time Order Dose Route Action 09/10/2025337 EST acetaminophen (Tylenol) tablet 650 mg 650 mg Oral Given 09/10/2025447 EST ampicillin-sulbactam (Unasyn) 3 g in sodium chloride 0.9% 100 mL IVPB (vial adapter required) 3 g Intravenous New Bag 09/10/2025447 EST fentaNYL (Sublimaze) injection 50 mcg 50 mcg Intravenous Given 09/10/2025447 EST gabapentin (Neurontin) capsule 300 mg 300 mg Oral Given 09/10/2025447 EST ondansetron (Zofran) injection 4 mg 4 mg Intravenous Given 09/10/2025447 EST oxyCODONE (Roxicodone) immediate release tablet 5 mg 5 mg Oral Given 09/10/2025458 EST ketorolac (Toradol) injection 15 mg 15 mg Intravenous Not Given 09/10/2025517 EST ampicillin-sulbactam (Unasyn) 3 g in sodium chloride 0.9% 100 mL IVPB (vial adapter required) 0 g Intravenous Stopped All Other Orders Ordered Status Ordering Provider 09/10/25514 Consult to ENT/Otolaryngology Once Specialty: Otolaryngology Provider: (Not yet assigned) Completed CHRIS VALDOVINOS 09/10/25412 Consult to Ophthalmology Once Specialty: Ophthalmology Provider: (Not yet assigned) Completed CHRIS VALDOVINOS 09/10/25332 C-Reactive protein STAT Final result MADAY ENRIQUEZ 09/10/25332 PT-INR STAT Final result MADAY ENRIQUEZ 09/10/25332 Hepatitis C Antibody - ED Once Final result MADAY ENRIQUEZ 09/10/25332 ED Protocol - HIV 1/2 Antibody/Antigen Screen Once Final result MADAY ENRIQUEZ 09/10/25332 ED HIV 1/2 Antibody/Antigen Screen w/Reflex to HIV 1/2 Differentiation PROCEDURE ONCE Final result MADAY ENRIQUEZ 09/10/25332 CBC w/diff STAT Final result MADAY ENRIQUEZ 09/10/25332 CMP STAT Final result MADAY ENRIQUEZ 09/10/25332 hCG qualitative STAT Final result MADAY ENRIQUEZ 09/10/25332 Blood Culture (Aerobic/Anaerobet Set) STAT In process MADAY ENRIQUEZ 09/10/25332 Blood Culture (Aerobic/Anaerobet Set) STAT In process MADAY ENRIQUEZ Assessment: Clinical Impressions as of 09/10/25 0625 Facial cellulitis Preseptal cellulitis of right eye Social Determinates of Health Risks (including Economic Stability, Education and level of understanding, Healthcare access and quality and concerning social factors): None identified on this visit Ultimately, this patient was Was discharged Home (Discharge) The primary encounter diagnosis was Facial cellulitis. A diagnosis of Preseptal cellulitis of right eye was also pertinent to this visit. . Patient was counseled on the diagnoses. Discharge medications if any are listed below. Listed medications are thought be either curative for listeddiagnoses or will help control ongoing symptoms. Patient is requested to follow up with Patient's Primary Care Provider, ENT, and Ophthalmology in order to obtain routine follow- up and specialty care. Instructions on follow up as well as precautions to return to the ER provided verbally by the EM provider, as well as written in patients discharge education packet. ED Prescriptions Medication Sig Dispense Start Date End Date Auth. Provider amoxicillin-clavulanate (Augmentin) 875-125 MG tablet Take 1 tablet by mouth 2 times a day for 10 days. 20 tablet 09/10/2025 09/20/2025 Chris Valdovinos APRN ondansetron ODT (Zofran-ODT) 4 MG disintegrating tablet Dissolve 1 tablet on the tongue every 6 hours as needed for nausea. 12 tablet 09/10/2025 10/10/2025 Chris Valdovinos APRN fluconazole (Diflucan) 150 MG tablet (Expires today) Take 1 tablet by mouth 1 time for 1 dose. 1 tablet 09/10/2025 09/10/2025 Jazlyn, Chris P, BUNDLE BREAKER Discharge Instructions Please follow-up with ophthalmology and the ENT clinic as recommended. Rest and recover as able. Please increase your water intake. Scribner use of warm and/or cold compresses. Primary pain control should be accomplished with OTC Tylenol and/or ibuprofen, which can be alternated every 4-6 hours as needed for pain. Please complete your antibiotic regimen in its entirety. It is important for you to follow-up with your primary care provider for re- evaluation and recheck. Return for any acute/severe worsening. Of course, you may return to the emergency department any time for new or concerning symptoms. We are always open and available to you. All of your medical information here is available to you via the [employer] Internet portal. Please make sure that you are registered for access to this. Disposition Discharge Follow-Ups Follow up with [facility]ology (Otolaryngology) Follow up with [facility] (Ophthalmology) - [1] Past 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: Diagnosis Date Anxiety Depression Hidradenitis suppurativa PTSD (post-traumatic stress disorder) [2] Past Surgical History: Procedure Laterality Date ANKLE SURGERY Left APPENDECTOMY CHOLECYSTECTOMY TONSILLECTOMY [3] No family history on file. [4] Tobacco Use Smoking status: Never Smokeless tobacco: Never Vaping Use Vaping status: Never Used Substance Use Topics Alcohol use: Never Drug use: Never [5] No Known Allergies Chris Valdovinos APRN 09/10/25 0625 Cosigned by Maday Enriquez DO at 09/10/2025 10:21 PM EST Associated attestation - Maday Enriquez DO - 09/10/2025 10:21 PM EST I have personally seen and examined the patient independently, reviewed the [facility]???s history, exam, and MDM and agree with the assessment and plan as written. * ED Triage Notes - Noah Morales RN - 09/10/2025 2:18 AM EST Patient presents to ed from osh with complaint of right sided facial swelling. Patient says there is drainage from a couple spots on the right side of her face and describes the discharge as thick, yellowish white, with a foul odor. Patient complaining of mild blurry vision in right eye. Patient airway patent, no soa or difficulty swallowing noted. Gcs 15. documented in this encounter Plan of Treatment Not on file documented as of this encounter Procedures Procedure Name Priority Date/Time Associated Diagnosis Comments ED HIV 1/2 ANTIBODY/ANTIGEN SCREEN WITH REFLEX TO HIV I/II DIFFERENTIATION STAT 09/10/2025 3:39 AM EST ED PROTOCOL HIV 1/2 ANTIBODY/ANTIGEN SCREEN W/REFLEX TO HIV 1/2 ANTIBODY DIFFERENTIATION STAT 09/10/2025 3:39 AM EST HEPATITIS C ANTIBODY - ED W/REFLEX TO HCV QUANT PCR STAT 09/10/2025 3:39 AM EST BLOOD CULTURE (AEROBIC/ANAEROBIC SET) STAT 09/10/2025 3:39 AM EST BLOOD CULTURE (AEROBIC/ANAEROBIC SET) STAT 09/10/2025 3:39 AM EST PROTHROMBIN TIME(PT) / INR STAT 09/10/2025 3:39 AM EST CBC WITH AUTO DIFFERENTIAL STAT 09/10/2025 3:39 AM EST C-REACTIVE PROTEIN, PLASMA STAT 09/10/2025 3:39 AM EST TEST QUALITATIVE PLASMA STAT 09/10/2025 3:39 AM EST COMPREHENSIVE METABOLIC PANEL, PLASMA STAT 09/10/2025 3:39 AM EST documented in this encounter Results * ED HIV 1/2 Antibody/Antigen Screen w/Reflex to HIV 1/2 Differentiation (09/10/2025 3:39 AM EST) HIV 1 & 2 Antibody/Antigen Screen Non Reactive Non Reactive 09/10/2025 4:44 AM EST [facility] Comment:Screening for HIV 1 & 2 antibodies, and P24 antigen is NONREACTIVE. No confirmatory testing is required. Blood Venous blood specimen / Unknown Venipuncture / Unknown 09/10/2025 3:39 AM EST 09/10/2025 4:05 AM EST Maday Enriquez DO LAB BLOOD ORDERABLES Final Resul t Performing Organization Address City/[facility] Co de Phone Number [facility] [address] [place] [address] * Hepatitis C Antibody - ED (09/10/2025 3:39 AM EST) Pathologist [facility] Hepatitis C Antibody Negative Negative 09/10/2025 4:54 AM EST [facility] Blood Venous blood specimen / Unknown Venipuncture / Unknown 09/10/2025 3:39 AM EST 09/10/2025 4:05 AM EST Maday S Mina LAB BLOOD ORDERABLES Final Resul t Performing Organization Address [facility] de Phone Number [facility] [address] [place] [address] * (ABNORMAL) PT-INR (09/10/2025 3:39 AM EST) Prothrombin Time 14.5(H) 12.0 - 14.3 sec 09/10/2025 4:13 AM EST [facility] INR 1.1 0.9 - 1.1 09/10/2025 4:13 AM EST [facility] Blood Venous blood specimen / Unknown Venipuncture / Unknown 09/10/2025 3:39 AM EST 09/10/2025 4:01 AM EST Narrative [facility] - 09/10/2025 4:13 AM EST OPTIMAL INR RANGES FOR PATIENT ON ORAL ANTICOAGULANT THERAPY Prevention of venous thromboembolism INR 2.0 to 3.0 In patients with heart disease: Atrial fibrillation INR 2.0 to 3.0 Valvular heart disease INR 2.0 to 3.0 Tissue heart valves INR 2.0 to 3.0 Mechanical prosthetic valves INR 2.5 to 3.5 Prevention of recurrent [place] INR 2.5 to 3.5 Maday Enriquez DO LAB BLOOD ORDERABLES Final Resul t Performing Organization Address [facility] Co de Phone Number [facility] [address] [place] [address] * (ABNORMAL) C-Reactive protein (09/10/2025 3:39 AM EST) CRP, Plasma 32.9(H) <=8.0 mg/L 09/10/2025 4:35 AM EST [facility] Blood Venous blood specimen / Unknown Venipuncture / Unknown 09/10/2025 3:39 AM EST 09/10/2025 4:05 AM EST Narrative [facility] - 09/10/2025 4:35 AM EST This CRP test is appropriate for assessment of infection, systemic inflammation and/or tissue injury. To assess cardiovascular disease risk order high sensitivity CRP (CRPH). Maday S Mina [facility] BLOOD ORDERABLES Final Resul t Performing Organization Address [facility] Co de Phone Number [facility] [address] [place] [address] * Blood Culture (Aerobic/Anaerobet Set) (09/10/2025 3:39 AM EST) Culture No growth at day 5 09/15/2025 6:01 AM EST [facility] Blood Structure of right hand / Unknown Venipuncture / Unknown 09/10/2025 3:39 AM EST 09/10/2025 5:23 AM EST Maday S Mina [facility] MICROBIOLOGY - GENERAL ORDER CALLUM Final Result Performing Organization Address [facility] Co de Phone Number [facility] [address] [place] [address] * Blood Culture (Aerobic/Anaerobet Set) (09/10/2025 3:39 AM EST) Culture No growth at day 5 09/15/2025 6:01 AM EST [facility] Blood Structure of left hand / Unknown Venipuncture / Unknown 09/10/2025 3:39 AM EST 09/10/2025 5:22 AM EST Maday [employer] [facility] MICROBIOLOGY - GENERAL ORDER CALLUM Final Result Performing Organization Address [facility]/ZIP Co de Phone Number [facility] [address] [place] [address] * hCG qualitative (09/10/2025 3:39 AM EST) Test Negative Negative 09/10/2025 4:56 AM EST [facility] Blood Venous blood specimen / Unknown Venipuncture / Unknown 09/10/2025 3:39 AM EST 09/10/2025 4:05 AM EST Narrative [facility] - 09/10/2025 4:56 AM EST Reference Range: Males and non- females: Negative. Maday S Mina [facility] BLOOD ORDERABLES Final Resul t Performing Organization Address [facility]/ZIP Co de Phone Number [facility] [address] [place] [address] * (ABNORMAL) CMP (09/10/2025 3:39 AM EST) Glucose, Plasma 104(H) 74 - 99 mg/dL 09/10/2025 4:35 AM EST [facility] BUN, Plasma 8 7 - 21 mg/dL 09/10/2025 4:35 AM EST [facility] Creatinine, Plasma 0.57(L) 0.60 - 1.10 mg/dL 09/10/2025 4:35 AM EST [facility] BUN/Creatinine Ratio 14 09/10/2025 4:35 AM EST [facility] Sodium, Plasma 133(L) 136 - 145 mmol/L 09/10/2025 4:35 AM EST [facility] Potassium, Plasma 3.9 3.6 - 4.9 mmol/L 09/10/2025 4:35 AM EST [facility] Chloride, Plasma 100 97 - 107 mmol/L 09/10/2025 4:35 AM EST [facility] CO2, Plasma 25 22 - 29 mmol/L 09/10/2025 4:35 AM EST [facility] Anion Gap 8 6 - 16 mmol/L 09/10/2025 4:35 AM EST [facility] Total Calcium, Plasma 8.8(L) 8.9 - 10.2 mg/dL 09/10/2025 4:35 AM EST [facility] Total Protein 7.2 6.3 - 7.9 g/dL 09/10/2025 4:35 AM EST [facility] Albumin, Plasma 3.9 3.5 - 5.2 g/dL 09/10/2025 4:35 AM EST [facility] AST, Plasma 45(H) 10 - 35 U/L 09/10/2025 4:35 AM EST [facility] ALT, Plasma 34 10 - 35 U/L 09/10/2025 4:35 AM EST [facility] Alkaline Phosphatase, Plasma 70 35 - 104 U/L 09/10/2025 4:35 AM EST [facility] Total Bilirubin, Plasma 1.0 0.2 - 1.1 mg/dL 09/10/2025 4:35 AM EST [facility] eGFRcr 127.9 mL/min/1.7 3m*2 09/10/2025 4:35 AM EST [facility] Comment:Reported eGFRcr in m L/min/1.73m2 is based the CKD-EPI 2020 equation that does not use a race coefficient. Blood Venous blood specimen / Unknown Venipuncture / Unknown 09/10/2025 3:39 AM EST 09/10/2025 4:05 AM EST us Maday Enriquez DO LAB BLOOD ORDERABLES Final Resul t [facility] [address] [place] [address] * CBC w/diff (09/10/2025 3:39 AM EST) WBC Count 7.98 3.70 - 10.30 10*3/uL LAB HEMATOLOGY METHOD 09/10/2025 4:04 AM EST [facility] RBC Count 4.28 3.90 - 5.20 10*6/uL LAB HEMATOLOGY METHOD 09/10/2025 4:04 AM EST [facility] HGB 12.7 11.2 - 15.7 g/dL LAB HEMATOLOGY METHOD 09/10/2025 4:04 AM [facility] HCT 36.7 34.0 - 45.0 % LAB HEMATOLOGY METHOD 09/10/2025 4:04 AM EST [facility] Platelet Count 185 155 - 369 10*3/uL LAB HEMATOLOGY METHOD 09/10/2025 4:04 AM EST [facility] MCV 86 79 - 98 fL LAB HEMATOLOGY METHOD 09/10/2025 4:04 AM [facility] MCH 29.7 26.0 - 32.0 pg LAB HEMATOLOGY METHOD 09/10/2025 4:04 AM [facility] MCHC 34.6 30.7 - 35.5 g/dL LAB HEMATOLOGY METHOD 09/10/2025 4:04 AM [facility] RDW 14.3 11.5 - 14.5 % LAB HEMATOLOGY METHOD 09/10/2025 4:04 AM [facility] MPV 10.4 8.8 - 12.5 fL LAB HEMATOLOGY METHOD 09/10/2025 4:04 AM [facility] nRBC 0.0 <=0.0 per 100 WBCs LAB HEMATOLOGY METHOD 09/10/2025 4:04 AM [facility] Differential Type Automated LAB HEMATOLOGY METHOD 09/10/2025 4:04 AM [facility] Neutrophils % 75 % LAB HEMATOLOGY METHOD 09/10/2025 4:04 AM [facility] Lymphocytes % 18 % LAB HEMATOLOGY METHOD 09/10/2025 4:04 AM [facility] Monocytes % 7 % LAB HEMATOLOGY METHOD 09/10/2025 4:04 AM [facility] Eosinophils % 0 % LAB HEMATOLOGY METHOD 09/10/2025 4:04 AM [facility] Basophils % 0 % LAB HEMATOLOGY METHOD 09/10/2025 4:04 AM [facility] Immature Granulocytes % 0 % LAB HEMATOLOGY METHOD 09/10/2025 4:04 AM [facility] Neutrophils Absolute 5.96 1.60 - 6.10 10*3/uL LAB HEMATOLOGY METHOD 09/10/2025 4:04 AM [facility] Lymphocytes Absolute 1.43 1.20 - 3.90 10*3/uL LAB HEMATOLOGY METHOD 09/10/2025 4:04 AM EST [facility] Monocytes Absolute 0.54 0.30 - 0.90 10*3/uL LAB HEMATOLOGY METHOD 09/10/2025 4:04 AM EST [facility] Eosinophils Absolute 0.01 0.00 - 0.50 10*3/uL LAB HEMATOLOGY METHOD 09/10/2025 4:04 AM EST [facility] Basophils Absolute 0.02 0.00 - 0.10 10*3/uL LAB HEMATOLOGY METHOD 09/10/2025 4:04 AM EST [facility] Immature Granulocytes Absolute 0.02 0.00 - 0.06 10*3/uL LAB HEMATOLOGY METHOD 09/10/2025 4:04 AM EST [facility] Blood Venous blood specimen / Unknown Venipuncture / Unknown 09/10/2025 3:39 AM EST 09/10/2025 4:01 AM EST Narrative [facility] - 09/10/2025 4:04 AM EST Therapeutic decision making should be based on absolute values, rather than percentages. us Maday Enriquez DO LAB BLOOD ORDERABLES Final Resul t [facility] [address] [place] [address] documented in this encounter Visit Diagnoses Diagnosis Facial cellulitis- Primary Preseptal cellulitis of right eye documented in this encounter Administered Medications Inactive Administered Medications - up to 3 most recent administrations Medication Order MAR Action Action Date Dose Rate Site acetaminophen (Tylenol) tablet 650 mg 650 mg, Oral, Once, 1 dose, On 09/10/25 at 0340, STAT Given 09/10/2025 3:38 AM EST 650 mg ampicillin-sulbactam (Unasyn) 3 g in sodium chloride 0.9% 100 mL IVPB (vial adapter required) 3 g, Intravenous, Once, 1 dose, On 09/10/25 at 0440, STAT New Bag 09/10/2025 4:48 AM EST 3 g 220 mL/hr fentaNYL (Sublimaze) injection 50 mcg 50 mcg, Intravenous, Once, 1 dose, On 09/10/25 at 0440, STAT Given 09/10/2025 4:48 AM EST 50 mcg gabapentin (Neurontin) capsule 300 mg 300 mg, Oral, Once, 1 dose, On 09/10/25 at 0440, STAT Given 09/10/2025 4:48 AM EST 300 mg ondansetron (Zofran) injection 4 mg 4 mg, Intravenous, Once, 1 dose, On 09/10/25 at 0440, STAT Given 09/10/2025 4:48 AM EST 4 mg oxyCODONE (Roxicodone) immediate release tablet 5 mg 5 mg, Oral, Once, 1 dose, On 09/10/25 at 0440, STAT Given 09/10/2025 4:48 AM EST 5 mg documented in this encounter Active and Recently Administered Medications Times are shown in EST. Scheduled Medication Order 09/08/2025 09/09/2025 09/10/2025 acetaminophen (Tylenol) tablet 650 mg (COMPLETED) 650 mg, Oral, Once, 1 dose, On 09/10/25 at 0340, STAT 0338 (Given - Provid er: Noah Morales RN) ampicillin-sulbactam (Unasyn) 3 g in sodium chloride 0.9% 100 mL IVPB (vial adapter required) (COMPLETED) 3 g, Intravenous, Once, 1 dose, On 09/10/25 at 0440, STAT 0448 (New Bag - Prov ider: Noah Morales RN)[id number] (Stopped - Provider: Noah Morales RN) fentaNYL (Sublimaze) injection 50 mcg (COMPLETED) 50 mcg, Intravenous, Once, 1 dose, On 09/10/25 at 0440, STAT 0448 (Given - Provid er: Noah Morales RN) gabapentin (Neurontin) capsule 300 mg (COMPLETED) 300 mg, Oral, Once, 1 dose, On 09/10/25 at 0440, STAT 0448 (Given - Provid er: Noah Morales RN) ketorolac (Toradol) injection 15 mg 15 mg, Intravenous, Once, 1 dose, On 09/10/25 at 0440, STAT 0459 (Not Given - Pr ovider: Noah Morales RN - 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
--- OUTSIDE RECORDS SUMMARY | 2025-09-15 14:00 | XMS_ITS | Encounter Summary ---
Author Organization Healthcare Address [address] [place] [address] Care Team Providers Care Cashier Tube Room Name Role Phone Johnathan Duenas MD Primary Care Provider Encounter Details Date Type Department Care Team (Late st Contact Info) Description 09/15/2025 2:00 PM EST Consult [facility] [address] [place] [address] Pola Rodriguez MD [address] [place] [address] Facial cellulitis; Preseptal cellulitis of right eye 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 Tobacco Use Types Packs/Day Years Used Date Smoking Tobacco: Never Smokeless Tobacco: Never Alcohol Use Standard Drinks/Week Comments Never 0 [...] Sign Reading Time Taken Comments Blood Pressure 104/71 09/15/2025 2:04 PM EST Pulse 103 09/15/2025 2:04 PM EST Temperature - - Respiratory Rate - - Oxygen Saturation - - Inhaled Oxygen Concentration - - Weight 98.9 kg (218 lb) 09/15/2025 2:04 PM EST Height 154.9 cm (5' 1 ) 09/15/2025 2:04 PM EST Body Mass Index 41.19 09/15/2025 2:04 PM EST documented in this encounter Functional Status * BP Answer Date of Assessment Author 104/71 09/15/2025 2:04 PM EST Farheen Smith * Pulse Answer Date of Assessment Author 103 09/15/2025 2:04 PM EST Farheen Smith * Height Answer Date of Assessment Author 61 09/15/2025 2:04 PM EST Farheen Smith * Weight Answer Date of Assessment Author 3488 09/15/2025 2:04 PM EST Farheen Smith * BMI (Calculated) Answer Date of Assessment Author 41.3 09/15/2025 2:04 PM Farheen Griffith * Percent Excess Weight Loss Answer Date of Assessment Author 0 09/15/2025 2:04 PM EST Farheen Smith * Total Weight Change Percent Answer Date of Assessment Author 2222 09/15/2025 2:04 PM Farheen Griffith * Weight Change Since Preop Answer Date of Assessment Author 98.86 09/15/2025 2:04 PM Farheen Griffith * Initial Excess Weight Answer Date of Assessment Author -47.63 09/15/2025 2:04 PM Farheen Griffith * IBW in lbs (Bariatric) Answer Date of Assessment Author 105 09/15/2025 2:04 PM Farheen Griffith * Weight Change Since Last Visit Answer Date of Assessment Author 98.86 09/15/2025 2:04 PM Farheen Griffith * IBW in kg (Bariatric) Answer Date of Assessment Author 47.63 09/15/2025 2:04 PM Farheen Griffith * Percent of IBW Answer Date of Assessment Author 7,323.12 09/15/2025 2:04 PM Farheen Griffith * EBW (kg) Answer Date of Assessment Author 3,486.65 09/15/2025 2:04 PM Farheen Griffith * EBW (lbs) Answer Date of Assessment Author 3,481.44 09/15/2025 2:04 PM Farheen Griffith * Weight Change 24 hrs Answer Date of Assessment Author 0 09/15/2025 2:04 PM Farheen Griffith * BSA (Calculated - sq m) Answer Date of Assessment Author 2.06 09/15/2025 2:04 PM Farheen Griffith * BMI (Calculated) Answer Date of Assessment Author 41.21 09/15/2025 2:04 PM Farheen Griffith * BP Location Answer Date of Assessment Author Right arm 09/15/2025 2:04 PM Farheen Griffith * IBW/kg (Calculated) Male Answer Date of Assessment Author 52.3 09/15/2025 2:04 PM Farheen Griffith * IBW/kg (Calculated) Female Answer Date of Assessment Author 47.8 09/15/2025 2:04 PM Farheen Griffith * IBW/kg (Calculated) Answer Date of Assessment Author 47.8 09/15/2025 2:04 PM Farheen Griffith * Weight in (lb) to have BMI = 25 Answer Date of Assessment Author 132 09/15/2025 2:04 PM Farheen Griffith * BMI (Calculated) Answer Date of Assessment Author 41.3 09/15/2025 2:04 PM Farheen Griffith * Percent Excess Weight Loss Answer Date of Assessment Author 0 09/15/2025 2:04 PM Farheen Griffith * Weight Change Since Preop Answer Date of Assessment Author 98.88 09/15/2025 2:04 PM Farheen Griffith * Initial Excess Weight Answer Date of Assessment Author -47.63 09/15/2025 2:04 PM Farheen Griffith * IBW in kg (Bariatric) Answer Date of Assessment Author 47.63 09/15/2025 2:04 PM Farheen Griffith * IBW in lb (Bariatric) Answer Date of Assessment Author 105 09/15/2025 2:04 PM Farheen Griffith * Weight Change Since Last Visit Answer Date of Assessment Author 98.88 09/15/2025 2:04 PM Farheen Griffith * Percent of IBW Answer Date of Assessment Author 207.62 09/15/2025 2:04 PM Farheen Griffith * EBW (kg) Answer Date of Assessment Author 51.23 09/15/2025 2:04 PM Farheen Griffith * EBW (lb) Answer Date of Assessment Author 113 09/15/2025 2:04 PM Farheen Griffith * Difference in Weight Since Last Visit Answer Date of Assessment Author 0 09/15/2025 2:04 PM Farheen Griffith * IBW/kg (Calculated) Answer Date of Assessment Author 47.8 09/15/2025 2:04 PM Farheen Griffith * Adult Low Range Vt 6mL/kg Answer Date of Assessment Author 286.8 09/15/2025 2:04 PM Farheen Griffith * Adult Moderate Range Vt 8mL/kg Answer Date of Assessment Author 382.4 09/15/2025 2:04 PM Farheen Griffith * Adult High Range Vt 10mL/kg Answer Date of Assessment Author 478 09/15/2025 2:04 PM Farheen Griffith * Patient Position Answer Date of Assessment Author Sitting 09/15/2025 2:04 PM Farheen Griffith * BP Answer Date of Assessment Author 104/71 09/15/2025 2:04 PM Farheen Griffith * Pulse Answer Date of Assessment Author 103 09/15/2025 2:04 PM Farheen Griffith * Height Answer Date of Assessment Author 61 09/15/2025 2:04 PM Farheen Griffith * Weight Answer Date of Assessment Author 3488 09/15/2025 2:04 PM Farheen Griffith * BSA (Calculated - sq m) Answer Date of Assessment Author 2.06 09/15/2025 2:04 PM Farheen Griffith * BMI (Calculated) Answer Date of Assessment Author 41.21 09/15/2025 2:04 PM Farheen Griffith * BP Location Answer Date of Assessment Author Right arm 09/15/2025 2:04 PM Farheen Griffith * Weight in (lb) to have BMI = 25 Answer Date of Assessment Author 132 09/15/2025 2:04 PM Farheen Griffith * Patient Position Answer Date of Assessment Author Sitting 09/15/2025 2:04 PM Farheen Griffith documented as of this encounter Mental Status * BP Answer Entry Date Author 104/71 09/15/2025 2:04 PM Farheen Griffith * Pulse Answer Entry Date Author 103 09/15/2025 2:04 PM Farheen Griffith * Height Answer Entry Date Author 61 09/15/2025 2:04 PM Farheen Griffith * Weight Answer Entry Date Author 3488 09/15/2025 2:04 PM Farheen Griffith * BMI (Calculated) Answer Entry Date Author 41.3 09/15/2025 2:04 PM Farheen Griffith * Percent Excess Weight Loss Answer Entry Date Author 0 09/15/2025 2:04 PM Farheen Griffith * Total Weight Change Percent Answer Entry Date Author 22209/15/2025 2:04 PM Farheen Griffith * Weight Change Since Preop Answer Entry Date Author 98.86 09/15/2025 2:04 PM Farheen Griffith * Initial Excess Weight Answer Entry Date Author -47.63 09/15/2025 2:04 PM Farheen Griffith * IBW in lbs (Bariatric) Answer Entry Date Author 105 09/15/2025 2:04 PM Farheen Griffith * Weight Change Since Last Visit Answer Entry Date Author 98.86 09/15/2025 2:04 PM Farheen Griffith * IBW in kg (Bariatric) Answer Entry Date Author 47.63 09/15/2025 2:04 PM Farheen Griffith * Percent of IBW Answer Entry Date Author 7,323.12 09/15/2025 2:04 PM Farheen Griffith * EBW (kg) Answer Entry Date Author 3,486.65 09/15/2025 2:04 PM Farheen Griffith * EBW (lbs) Answer Entry Date Author 3,481.44 09/15/2025 2:04 PM Farheen Griffith * Weight Change 24 hrs Answer Entry Date Author 0 09/15/2025 2:04 PM Farheen Griffith * BSA (Calculated - sq m) Answer Entry Date Author 2.06 09/15/2025 2:04 PM Farheen Griffith * BMI (Calculated) Answer Entry Date Author 41.21 09/15/2025 2:04 PM Farheen Griffith * BP Location Answer Entry Date Author Right arm 09/15/2025 2:04 PM Farheen Griffith * IBW/kg (Calculated) Male Answer Entry Date Author 52.3 09/15/2025 2:04 PM Farheen Griffith * IBW/kg (Calculated) Female Answer Entry Date Author 47.8 09/15/2025 2:04 PM Farheen Griffith * IBW/kg (Calculated) Answer Entry Date Author 47.8 09/15/2025 2:04 PM Farheen Griffith * Weight in (lb) to have BMI = 25 Answer Entry Date Author 132 09/15/2025 2:04 PM Farheen Griffith * BMI (Calculated) Answer Entry Date Author 41.3 09/15/2025 2:04 PM Farheen Griffith * Percent Excess Weight Loss Answer Entry Date Author 0 09/15/2025 2:04 PM Farheen Griffith * Weight Change Since Preop Answer Entry Date Author 98.88 09/15/2025 2:04 PM Farheen Griffith * Initial Excess Weight Answer Entry Date Author -47.63 09/15/2025 2:04 PM Farheen Griffith * IBW in kg (Bariatric) Answer Entry Date Author 47.63 09/15/2025 2:04 PM Farheen Griffith * IBW in lb (Bariatric) Answer Entry Date Author 105 09/15/2025 2:04 PM Farheen Griffith * Weight Change Since Last Visit Answer Entry Date Author 98.88 09/15/2025 2:04 PM Farheen Griffith * Percent of IBW Answer Entry Date Author 207.62 09/15/2025 2:04 PM Farheen Griffith * EBW (kg) Answer Entry Date Author 51.23 09/15/2025 2:04 PM Farheen Griffith * EBW (lb) Answer Entry Date Author 113 09/15/2025 2:04 PM Farheen Griffith * Difference in Weight Since Last Visit Answer Entry Date Author 0 09/15/2025 2:04 PM Farheen Griffith * IBW/kg (Calculated) Answer Entry Date Author 47.8 09/15/2025 2:04 PM Farheen Griffith * Adult Low Range Vt 6mL/kg Answer Entry Date Author 286.8 09/15/2025 2:04 PM Farheen Griffith * Adult Moderate Range Vt 8mL/kg Answer Entry Date Author 382.4 09/15/2025 2:04 PM Farheen Griffith * Adult High Range Vt 10mL/kg Answer Entry Date Author 478 09/15/2025 2:04 PM Farheen Griffith * BP Cuff Size Answer Entry Date Author Adult 09/15/2025 2:04 PM Farheen Griffith * Patient Position Answer Entry Date Author Sitting 09/15/2025 2:04 PM Farheen Griffith documented in this encounter Miscellaneous Notes * Progress Notes - Pola Rodriguez MD - 09/15/2025 2:00 PM EST Jillian Cisneros was seen and evaluated today in the [facility] for her recent treatment for a right-sided facial abscess with concomitant cellulitis. Jillian is a 29 y.o. female with a cystic lesion on the right side of her face that has been there for several years but it felt like it was coming to a head with infection and she squeezed it. It developed into a facial cellulitis and she was seen in the emergency room about six days ago and treated with Augmentin. She has had a previous problem with the clindamycin upsetting her stomach so she preferred not to use that medication. She has seen a significant improvement in the swelling of the right side of her face especially around her eye but is squeegee tender and swollen laterally up into the temporal region.He has four more days antibiotics in his worried that when she runs out her symptoms will worsen. Ihad the opportunity reviewing her ER records in advance of her visit. She reports that she has never smoked. She has never used smokeless tobacco. Her 14 point review of systems, family and social history are otherwise negative as reported by ourpatient history form. She denies any constitutional symptoms. She is accompanied by her to the visit today. Current Medications[1] Allergies: Patient has no known allergies. PERTINENT SOCIAL HISTORY: She reports no history of alcohol use. She reports no history of drug use. BP 104/71 (BP Location: Right arm, Patient Position: Sitting, BP Cuff Size: Adult) Pulse 103 Ht1.549 m (5' 1 ) Wt 98.9 kg (218 lb) BMI 41.19 kg/m?? Physical examination today reveals a overweight female in no apparent distress. Her head is normocephalic and atraumatic with the exception of the right side of her face which is swollen but not fluctuant. There is some discoloration of the soft tissues in the preauricular and temporal region on the right. Personally reviewed her scans from the time of her emergency room visit which demonstrated edema and swelling of her right cheek region but I do not see any discrete abscess. Plan: She clearly has a resolving cellulitis of the right face which is still showing signs of mild inflammation. I have extended her Augmentin for an additional 10 days if necessary as well as added a 30 mg burst and taper prednisone. She had requested another round of Diflucan. If her symptoms worsen, then consideration for an incision and drainage would be in order and I have advised her to come back to the clinic or to the emergency room and ask for the ENT doctor on-call. The patient has been counseled on tobacco cessation: Not Applicable; time spent in discussion: Not applicable, current non smoker. Digital speech recognition software was used to dictate this note and, despite all efforts to proofread, some dictation errors may occur. Complexity of care: The evaluation of this patient today was of MODERATE COMPLEXITY in the medical decision-making process. The number of diagnoses and management options necessary for their evaluation were 1 acute illness with systemic symptoms, the amount and/or complexity of the data that I reviewed was independent interpretation of patient's sinus CT and the risks of complications and/or morbidity or mortality of the recommendations for this patient's care were prescription drug management. [1] Current Outpatient Medications: amoxicillin-clavulanate (Augmentin) 875-125 MG tablet, Take 1 tablet by mouth 2 times a day for 10 days., Disp: 20 tablet, Rfl: 0 busPIRone (Buspar) 10 MG tablet, 1 tablet., Disp: , Rfl: ibuprofen 800 MG tablet, Take 1 tablet by mouth every 8 hours as needed., Disp: , Rfl: omeprazole (PriLOSEC) [address] capsule, 1 (one) time each day at the same time., Disp: , Rfl: ondansetron ODT (Zofran-ODT) 4 MG disintegrating tablet, Dissolve 1 tablet on the tongue every 6 hours as needed for nausea., Disp: 12 tablet, Rfl: 0 Prucalopride Succinate (Motegrity) 2 MG tablet, Take 1 tablet by mouth daily., Disp: , Rfl: senna (Senokot) 8.6 MG tablet, TAKE ONE TABLET BY MOUTH TWICE DAILY NEEDED FOR constipation, Disp: , Rfl: predniSONE (Deltasone) 10 MG tablet, Take 1 tablet by mouth 3 times a day for 3 days, THEN 1 tablet2 times a day for 3 days, THEN 1 tablet daily for 3 days, THEN 0.5 tablets daily for 4 days. Take with food as directed., Disp: 20 tablet, Rfl: 0 documented in this encounter Plan of Treatment Not on file documented as of this encounter Visit Diagnoses Diagnosis Facial cellulitis Preseptal cellulitis of right eye documented in this encounter Additional Health Concerns Assessment Noted Time A Body Mass Index follow-up plan has been documented for the patient 09/15/2025 2:39 PM EST documented as of this encounter Care Teams Cashier Tube Room Relationship Specialty [place] [id number] PCP - General 09/12/25 documented as of this encounter
--- OUTSIDE RECORDS SUMMARY | 2025-10-26 14:26 | XMS_ITS | Data Portability ---
Author Organization [facility] SIA Sellers WARN[facility] CLOSED Address [address] [place] [address] Assessment No assessment recorded. Plan of Treatment Reminders Order Date Submit Date Provider Last Modified By Organization Details Last Modified Time Details Appointments None recorded. Lab TSH, serum or plasma 2024 025 [facility], [address] [place] [address], [id number], 5 12:55:28 T4, free, serum 2024 025 [facility], [address] [place] [address], [phone], 5 12:55:29 T3, free, serum or plasma 2024 025 [facility], [address] [place] [address], [phone], 5 12:55:26 tsi (thyroid-st imulating immunoglobu gab), serum 2024 025 [facility], [address] [place] [address], [phone], 5 17:55:21 thyroid peroxidase (tpo) Ab, serum 2024 025 [facility], [address] [place] [address], [phone], 5 16:48:25 Referral None recorded. Procedures None recorded. Surgeries None recorded. Imaging None recorded. Medication Orders None recorded. Patient TargetsNo targets recorded. Patient InstructionsNo instructions recorded. Reason for Referral None Reported. Results Created Date Observation Date Name Description Value Unit Range Abnormal Flag Note LastModifiedBy Organization Detail LastModifiedTime 03/23/2003/23/2025 T3 FREE T3 free 3.00 pg/mL 2.00-4 .40 normal Not Available [facility] [address] [place] [address], [phone], 03/23/2025 12:55:26 03/23/20 25 03/23/2025 TSH TSH 0.019 u[IU] /mL 0.270- 4.200 low Not Available [facility] [address] [place] [address], [phone], 03/23/2025 12:55:28 03/23/20 25 03/23/2025 T4,FR EE T4,free 1.14 NG/dL 0.93-1 .70 normal Not Available [facility] [address] [place] [address], [phone], 03/23/2025 12:55:29 03/23/20 25 03/24/2025 THYRO ID PEROX IDASE AB thyroid peroxidase Ab 1 IU/mL <9 normal Not Available [facility] [address] [place] [address], [phone], 03/24/2025 16:48:25 03/23/20 25 03/29/2025 THYRO ID STIMU LATIN G IGS thyroid stimulating igs <89 %_bas ghazal <140 normal Thyro id stimu latin g immun oglob ulins (TSI) can engag e the TSH forming acid dumper tors resul ting in hyper thyro idism [...] for clini ana purpo ses. Not Available [facility] [address] [place] [address], [phone], 03/29/2025 17:55:21 04/20/2004/20/2025 TSH TSH 1.070 u[IU] /mL 0.270- 4.200 normal Not Available [facility] [address] [place], [address], 04/20/2025 09:37:58 04/20/2004/20/2025 T4,FR EE T4,free 0.96 NG/dL 0.93-1 .70 normal Not Available [facility] [address] [place] [address], [phone], 04/20/2025 09:37:59 04/20/2004/20/2025 T3 FREE T3 free 2.93 pg/mL 2.00-4 .40 normal Not Available [facility] [address] [place], [address], 04/20/2025 09:38:01 04/01/20 25 01/03/2025 US, thyro id No observ ation record ed. [email or web address] Not Available 2024 08:24:49 Result Notes None [...] Address Organization Details Last Updated DateTime 03/23/2025 85738.6 g 41.5 kg/m2 154.94 cm 112/68 mm[Hg] David Johns [facility] 03/23/2025 11:18:55 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 None recorded. Functional Status None recorded. Mental Status None recorded. Family History Nothing Reported. 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 No medical history recorded. Gynecological HistoryNo gynecological history recorded. Obstetrics History GPAL:G 0 P 0 0 0 0 Past Encounters Encounter ID Performer Location Encounter Start Date Encounter Closed Date Diagnosis/Indication Diagnosis SNOMED-CT Code Diagnosis ICD10 Code Diagnosis IMO Codes Diagnosis Note [id number] STANISLAW LOVE APRN ENDOCRINO [address]Y [address] [place] [address] 03/23/2025 11:03:56 03/23/2025 11:53:33 Hyperthyroidism 67172856 E05.90 [id number] No referral labs on fileDiagno december of [...] ID Guarantor Name 04/22/2025 1 [place] [id number] 2 Césarraymundo Blayne [id number] Jillian Blayne Notes Date Note Type [...] and rapid heart rate. STANISLAW LOVE, BUSINESS ASST [address] [place], [address], [facility] 03/23/2025 12:47:06 OBGyn Episode No OBEpisode recorded.
--- OUTSIDE RECORDS SUMMARY | 2025-10-26 14:26 | XMS_ITS | Clinical Summary ---
Author Organization [facility] Address [address] [place] [address] Care Team Providers Care Mapper Name Role Phone Provider, No Known Primary [...] such, I have scheduled Ms Cisneros with [facility] for possible PUBS/IUT procedure tomorrow. She will be at their ultrasound unit tomorrow at 0800. D/w Dr Marry Vogt. Records faxed. Follow up with [facility] TBD Dysmenorrhea 04/21/2023 Intrahepatic cholestasis of [...] things needed for daily living? No 11/13/2020 [place] Depression Scale Answer Date Recorded [place] Depression Scale Total 5 06/05/2021 The thought [...] Lab Report [facility] [address] [place] [address] or [phone] Wong Wall M.D., Aqua Ammonia Operator PATIENT NAME [facility] NO[facility] ISABELA CARDOSO [id number] AGE SEX SSN CLIENT REF # [id number] 25 1995 F [id number] REQUESTING Edis [place] [address] ALCIRA ORTIZ DATE COLLECTED DATE RECEIVED DATE [...] of chlamdial and gonococcal disease using the [place] system. AUTOMATIC SILK SCREEN PRINTER: LEXI SAUCEDA (ASCP) CPT CODES: 84363, 60102, 18974 04/08/2023 2:46 PM EDT [facility] ThinPrep Vial Cervix uteri structure / Unknown Collection / Unknown 04/07/2023 8:19 AM EDT 04/07/2023 8:19 AM EDT Alcira Ortiz MD PATHOLOGY/CYTOLOGY ORDER CALLUM Final Result [facility]
[address] [place] [address], * Obstetric Panel (11/13/2020 12:00 AM EST) Hepatitis B Surface Ag Negative Negative [facility] Hep C Virus Ab <0.1 0.0 - 0.9 s/co ratio [facility] Comment: Negative: < 0.8 Indeterminate: 0.8 - 0.9 Positive: > 0.9 The CDC recommends that a positive HCV antibody result be followed up with a HCV Nucleic Acid Amplification test (694672). RPR Non Reactive Non Reactive [facility] [...] x10E3/uL [facility] 11/13/2020 11/13/2020 Narrative [facility] (AMBULATORY) - 11/15/2020 6:09 AM EST Performed at: - [facility] [address] [place], [place] [id number] Conditioning Coach: Micah Warner PhD, Phone: [phone] Alcira Ortiz MD LAB BLOOD ORDERABLES Fin al Result [facility] (AMBULATORY) [address] [place] [address], [facility] [address] [place] [address], from Last 3 Months or Most Recently Relevant to Health Maintenance Insurance [facility] PPO Advance Directives * CPR (Attempt to Resuscitate) (Latest Code Status on File) Date Activated Date Inactivated Comments 06/05/2021 6:00 AM 06/07/2021 4:15 PM Question Answer Comments Code Status (Patient has no pulse and is not breathing): CPR (Attempt to Resuscitate) Medical Interventions (Patie nt has pulse or is breathing): Full Care Teams Mapper Relationship Specialty Start Date End Date Provider, No Known [facility] [place] [address] PCP - General 12/04/20
--- OUTSIDE RECORDS SUMMARY | 2025-10-26 14:26 | XMS_ITS | Clinical Summary ---
Author Organization [facility] Address [address] [place] [address] Care Team Providers Care Bilingual Counter Sales Retail Name Role Phone Unknown, Attending Provider Primary [...] therelease of HIV test results or diagnoses. 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 No 05/07/2024 Yearly Questionnaire Answer [...] Date Last Done Comments Hepatitis C Screening ([place]) 1997 Depression Screening 2015 Immunization: Hepatitis B (1 of 3 - 19+ 3-dose series) 2016 Cervical Cancer Screening/Pap Smear ([place]) 2018 Renal Function/GFR 05/07/2025 05/07/2024, 05/06/2024 Diabetes Screening 05/17/2025 05/17/2024 Immunization: COVID-19 ( season) 2025 08/06/2021, 07/17/2021 Immunization: Influenza ([place]) (#1) 2025 Immunization: DTaP/Tdap/Td (5 - Td [...] Hr 132 mg/dL 05/17/2024 12:49 PM EDT [facility] Comment: 1 HOUR GLUCOSE CHALLENGE INTERPRETATION: Women/ Non Adult - 50 gram glucose load screening for gestational diabetes Expected normal response: A one hour glucose result of less than 140 mg/dL. Plasma 05/17/2024 11:3 0 AM EDT 05/17/2024 12:11 PM EDT Timoteo Sosa MD LAB BLOOD ORDERABLES F inal Result [facility] [address] * (ABNORMAL) Comprehensive Metabolic Panel, STAT (05/07/2024 5:46 PM EDT) Pathologist [facility] Sodium 138 133 - 146 mmol/L 05/07/2024 6:30 PM EDT [facility] Potassium 3.6 3.5 - 5.3 mmol/L 05/07/2024 6:30 PM EDT [facility] Chloride 107 98 - 110 mmol/L 05/07/2024 6:30 PM EDT [facility] CO2 21 21 - 33 mmol/L 05/07/2024 6:30 PM EDT [facility] Anion Gap 10 3 - 16 mmol/L 05/07/2024 6:30 PM EDT [facility] BUN 4(L) 7 - 25 mg/dL 05/07/2024 6:30 PM EDT [facility] Creatinine 0.47(L) 0.60 - 1.30 mg/dL 05/07/2024 6:30 PM EDT [facility] Glucose 174(H) 70 - 100 mg/dL 05/07/2024 6:30 PM EDT [facility] Calcium 8.7 8.6 - 10.3 mg/dL 05/07/2024 6:30 PM EDT [facility] Total Bilirubin 0.4 0.0 - 1.5 mg/dL 05/07/2024 6:30 PM EDT [facility] AST 14 13 - 39 U/L 05/07/2024 6:30 PM EDT [facility] ALT 10 7 - 52 U/L 05/07/2024 6:30 PM EDT [facility] Alkaline Phosphatase 56 36 - 125 U/L 05/07/2024 6:30 PM EDT [facility] Total Protein 6.5 6.4 - 8.9 g/dL 05/07/2024 6:30 PM EDT [facility] Albumin 3.4(L) 3.5 - 5.7 g/dL 05/07/2024 6:30 PM EDT [facility] Osmolality, Calculated 287 278 - 305 mOsm/kg 05/07/2024 6:30 PM EDT [facility] EGFR >90 05/07/2024 6:30 PM EDT [facility] Comment: As of 2021, the [...] MD LAB BLOOD ORDERABLES Final Resul t [facility] [address] [facility]. [address] * , HIV 1/2 Ab+Ag with Reflex (05/06/2024 9:10 PM EDT) HIV 1+2 AB/AGN Nonreactive Nonreactive 05/06/2024 10:08 PM EDT [facility] Serum 05/06/2024 9:10 PM EDT 05/06/2024 9:21 PM EDT Narrative [facility] - 05/06/2024 10:08 PM EDT HIV-1 p24 Antigen and HIV-1/HIV-2 Antibody not detected. Fernando Leonard MD LAB BLOOD ORDERABLES Final Re sult Performing Organization Address City/[facility]/ZIP Co de Phone Number [facility] [address] [facility]. [address] from Last 3 Months or Most Recently Relevant to Health Maintenance Insurance [employer] [id number] BLUE ACCESS Advance Directives For more information, please contact: [phone] * Full Code (Latest Code Status on File) Date Activated Date Inactivated Comments 05/06/2024 8:33 PM 05/09/2024 5:04 PM Care Teams Bilingual Counter Sales Retail Relationship Specialty Start Date End Date Unknown, Attending Provider PCP - General 05/06/24
--- OUTSIDE RECORDS SUMMARY | 2025-10-26 14:26 | XMS_ITS | Encounter Summary ---
Author Organization Healthcare Address [address] [place] [address] Care Team Providers Care Canvas Worker Name Role Phone Pcp, No Primary Care Provider Johnathan Avalos MD Primary Care Provider [phone] Encounter Details Date Type Department Care Team ([facility] st Contact Info) Description 09/10/2025 Ophth Exam [facility] [address] [place] [id number] Julio Christian MD [address] [place] [address] 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 Tobacco Use Types Packs/Day Years [...] PM EDT documented as of this encounter Plan of Treatment Not on file documented as of this encounter Visit Diagnoses Not on filedocumented in this encounter Care Teams Canvas Worker Relationship Specialty Start Date End Date Pcp, Vilma [address] [place], [place] [id number] PCP - General Family Medicine 04/08/24 09/11/25 Johnathan Duenas [place] [id number] PCP - General 09/12/25 documented as of this encounter
--- OUTSIDE RECORDS SUMMARY | 2025-10-26 14:26 | XMS_ITS | Encounter Summary ---
Author Organization Healthcare Address [address] [place] [id number] Care Team Providers Care Media Producer Name Role Phone Pcp, No Primary Care Provider Unavailabl e Encounter Details Date Type Department Care Team (Latest Contact Info) Description 09/10/2025 Travel 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 Tobacco Use Types Packs/Day Years [...] PM EDT documented as of this encounter Functional Status * Communicable Disease Screening Question Answer Date of Assessment Author Have you been in contact with someone who was sick? No / Unsure 09/10/2025 2:23 AM Indio Guo RN Do you have any of the following new or worsening symptoms? None of these 09/10/2025 2:23 AM Noah Guo RN * Travel Screening Question Answer Date of Assessment Author Have you traveled [place] or domestically in the last month? No 09/10/2025 2:23 AM Noah Kelley RN documented as of this encounter Mental Status * Communicable Disease Screening Question Answer Entry Date Author Have you been in contact with someone who was sick? No / Unsure 09/10/2025 2:23 AM Indio Guo RN Do you have any of the following new or worsening symptoms? None of these 09/10/2025 2:23 AM Noah Guo RN * Travel Screening Question Answer Entry Date Author Have you traveled [place] or domestically in the last month? No 09/10/2025 2:23 AM Noah Kelley RN documented in this encounter Plan of Treatment Not on file documented as of this encounter Visit Diagnoses Not on filedocumented in this encounter Care Teams Media Producer Relationship Specialty Start Date End Date Pcp, No [address] [place] [address] PCP - General Family Medicine 04/08/24 09/11/25 documented as of this encounter
--- OUTSIDE RECORDS SUMMARY | 2025-10-26 14:26 | XMS_ITS | Clinical Summary ---
Author Organization [facility] Address [address] [place] [address] Care Team Providers Care Commercial Illustrator Name Role Phone Johnathan Duenas MD Primary Care Provider [phone] Source Comments [facility] is fully rolled out with thefollowing exceptions:[facility] Allergies No known active allergies Medications [...] on 05/18/24. Jillian Cisneros was referred to [facility] on 05/18/[address] Casper for [...] (MRI, ultrasound) with pediatric surgery, neonatology and [facility] ~ 32 weeks gestation, week of [...] on US today 05/31/2024: echo normal at [facility], will be for 32 weeks [...] hydrops. - Normal MCA and UA Dopplers. [facility]AN OF CARE Jillian Cisneros was seen today in the [facility] for a diagnosis of previous [...] Labor (IOL) and a vaginal delivery at [facility] is anticipated at 39 weeks (if yours and Zac's health remains stable-which is routine OB standards); with a low threshold after 37 weeks Get set up with a medical sales consultant to work with to help your milk come in Does an amnio procedure need to be scheduled for this patient? No PATIENT TO BE SCHEDULED FOR FOLLOW UP WITHIN: No follow up at [facility] needed Problem Noted Date Diagnosed [...] of 3 - 19+ 3-dose series) 2016 Yearly Physical Ages 3-18+ 04/07/202404/07, 12/17/2021 DTAP/Tdap/Td IMMUNIZATION (3 - Td or Tdap) 12/02/2024 06/01/2024, 04/02/2021 AMB SEASONAL FLU VACCINE (#1) 06/27/2025 COVID-19 Vaccine (3 - 2024-2 6 season) 2025 08/06/2021, 07/17/2021 HIB IMMUNIZATION Aged Out No longer e ligible based on patient's age to complete this topic HPV IMMUNIZATION (No Doses Required) Completed IPV IMMUNIZATION Aged Out No longer e [...] topic Insurance [employer] NON-TRADITIONAL Care Teams Commercial Illustrator Relationship Specialty Start Date End Date Johnathan Duenas MD [address] [place] [address] PCP - General External Family Practice 05/30/24
--- OUTSIDE RECORDS SUMMARY | 2025-10-26 14:26 | XMS_ITS | Encounter Summary ---
Author Organization Healthcare Address [address] [place] [address] Care Team Providers Care Lease Out Worker Name Role Phone Pcp, No Primary Care Provider Johnathan Avalos MD Primary Care Provider [phone] Encounter Details Date Type Department Care Team ([facility] st Contact Info) Description 09/09/2025 Orders Only External Location [address] [place] [address] Provider, External 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 Tobacco Use Types Packs/Day Years Used Date Smoking Tobacco: Never Assessed AUDIT-C Answer Date Recorded Q1: How often [...] Procedure Name Priority Date/Time Associated Diagnosis Comments CT NEURO OUTSIDE IMAGES 09/09/2025 10:43 PM EST documented in this encounter Results * CT NEURO OUTSIDE IMAGES (09/09/2025 10:43 PM EST) Anatomical Region Laterality Modality Computed Tomogra phy 09/09/2025 10:4 3 PM EST us External Provider IMG CT PROCEDURES Edited Resul t - Final documented in this encounter Visit Diagnoses Not on filedocumented in this encounter Care Teams Lease Out Worker Relationship Specialty Start Date End Date Pcp, Vilma [address] [place] [address] PCP - General Family Medicine 04/08/24 09/11/25 [place] [id number] PCP - General 09/12/25 documented as of this encounter
--- OUTSIDE RECORDS SUMMARY | 2025-10-26 14:26 | XMS_ITS | Encounter Summary ---
Author Organization Healthcare Address [address] [place] [address] Care Team Providers Care Drywall Hanger Name Role Phone Johnathan Duenas MD Primary Care Provider [phone] Encounter Details Date Type Department Care Team (Late st Contact Info) Description 09/15/2025 Telephone [facility] [address] [place] [address] Pola Rodriguez MD [address] [place] [address] 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 Tobacco Use Types Packs/Day Years [...] PM EDT documented as of this encounter Miscellaneous Notes * Telephone Encounter - Rachael Hidalgo - 09/15/2025 3:06 PM EST Called and spoke with pharmacy documented in this encounter Plan of Treatment Not on file documented as of this encounter Visit Diagnoses Not on filedocumented in this encounter Additional Health Concerns Assessment Noted Time A Body Mass Index follow-up plan has been documented for the patient 09/15/2025 2:39 PM EST documented as of this encounter Care Teams Drywall Hanger Relationship Specialty Start [place] [id number] PCP - General 09/12/25 documented as of this encounter
--- OUTSIDE RECORDS SUMMARY | 2025-10-26 14:26 | XMS_ITS | Clinical Summary ---
Author Organization [facility] Address [address] [place] [address] Care Team Providers Care Remediation Technician Name Role Phone Johnathan Duenas MD Primary Care Provider [phone] Allergies No known active allergies Medications busPIRone (Buspar) 10 MG tablet 1 tablet. 07/21/20 25 Active ibuprofen 800 MG tablet Take 1 tablet by mouth every 8 hours as needed. Active omeprazole (PriLOSEC) [address] capsule 1 (one) time each day at the same time. 05/11/20 25 Active senna (Senokot) 8.6 MG tablet TAKE ONE TABLET BY MOUTH TWICE DAILY NEEDED FOR constipation 10/26/20 24 Active Prucalopride Succinate (Motegrity) 2 MG tablet Take 1 tablet by mouth daily. 09/12/20 25 Active ondansetron ODT (Zofran-ODT) 4 MG disintegrating tablet Dissolve 1 tablet on the tongue every 6 hours as needed for nausea. 12 tablet 09/10/20 25 025 predniSONE (Deltasone) 10 MG tablet Take 1 tablet by mouth 3 times a day for 3 days, THEN 1 tablet 2 times a day for 3 days, THEN 1 tablet daily for 3 days, THEN 0.5 tablets daily for 4 days. Take with food as directed. 20 tablet 09/15/20 25 025 Active Problems No known active problems Encounters Date Type Department Care Team Description 09/15/2025 2:00 PM EST Consult [facility] [address] [place] [id number] Pola Rodriguez MD Facial cellulitis; Preseptal cellulitis of right eye 09/15/[address] [facility] Otolaryngology [address] [place] [address] Pola Rodriguez MD 09/15/2025 Travel 09/10/2025 2:18 AM EST - 09/10/2025 9:11 AM EST Emergency [facility] Emergency Department [address] [place] [phone] Maday Enriquez, Eduardo Hollins MD Facial cellulitis (Primary Dx); Preseptal cellulitis of right eye Discharge Disposition: Home or Self Care 09/10/2025 Ophth Exam [facility] [address] [place] [phone] Julio Christian MD 09/10/2025 Travel 09/09/2025 Orders Only External Location [address] [place] [id number] Provider, External 09/09/2025 Orders Only External Location [address] [place] [id number] Provider, External from Last 3 Months Immunizations Immunization Administration Dates Next Due Tdap [...] Orientation Straight 04/09/2024 10 :03 PM EDT Last Filed Vital Signs Vital Sign Reading Time Taken Comments Blood Pressure 104/71 09/15/2025 2:04 PM EST Pulse 103 09/15/2025 2:04 PM EST Temperature 37.1 C (98.7 F) 09/10/2025 8:03 AM EST Respiratory Rate 16 09/10/2025 8:03 AM EST Oxygen Saturation 96% 09/10/2025 8:03 AM EST Inhaled Oxygen Concentration - - Weight 98.9 kg (218 lb) 09/15/2025 2:04 PM EST Height 154.9 cm (5' 1 ) 09/15/2025 2:04 PM EST Body Mass Index 41.19 09/15/2025 2:04 PM EST Plan of Treatment Health Maintenance Due Date Last Done Comments [facility]-Depression Screening 1997 [facility]-Infant/Child/Adol SDOH Screenings 1997 [facility]-Varicella Vaccines (1 of 2 - 13+ 2-dose series) 2010 [facility]- SDOH Screenings 2015 [facility]-Adult SDOH Screenings 2015 [facility]-Hepatitis B Vaccines (1 of 3 - 19+ 3-dose series) 2016 [id number] Vaccine (3 - 2024- season) 2025 08/06/2021, 07/17/2021 [facility]-Influenza Vaccine (#1) 2025 [facility]-Pap Smear 04/07/2026 04/07/2023 [facility]-DTaP,Tdap,and Td Vaccine s (3 - Td or Tdap) 06/01/2034 06/01/2024, 04/02/2021 [facility]-Zoster Vaccines (1 of 2) 2047 [facility]-HIV Screening Completed 09/10/2025 [facility]-Hepatitis C Screening Completed 09/10/2025 [facility]-Obesity Intervention Completed 09/15/2025 HPV Vaccines (No Doses Required) Completed [facility]-HIB Vaccines Aged Out No longer e [...] QUANT PCR STAT 09/10/2025 3:39 AM EST PROTHROMBIN TIME(PT) / INR STAT 09/10/2025 3:39 AM EST C-REACTIVE PROTEIN, PLASMA STAT 09/10/2025 3:39 AM EST TEST QUALITATIVE PLASMA STAT 09/10/2025 3:39 AM EST COMPREHENSIVE METABOLIC PANEL, PLASMA STAT 09/10/2025 3:39 AM EST CBC WITH AUTO DIFFERENTIAL STAT 09/10/2025 3:39 AM EST BLOOD CULTURE (AEROBIC/ANAEROBIC SET) STAT 09/10/2025 3:39 AM EST BLOOD CULTURE (AEROBIC/ANAEROBIC SET) STAT 09/10/2025 3:[address] NEURO OUTSIDE IMAGES 09/09/20 10:[address] NEURO OUTSIDE IMAGES 09/09/20 10:43 PM EST from Last 3 Months Results * ED HIV 1/2 Antibody/Antigen Screen w/Reflex to HIV 1/2 Differentiation (09/10/2025 3:39 AM EST) HIV 1 & 2 Antibody/Antigen Screen Non Reactive Non Reactive 09/10/2025 4:44 AM EST [facility] Comment:Screening for HIV 1 & 2 antibodies, and P24 antigen is NONREACTIVE. No confirmatory testing is required. Blood Venous blood specimen / Unknown Venipuncture / Unknown 09/10/2025 3:39 AM EST 09/10/2025 4:05 AM EST Maday S Mina [facility] BLOOD ORDERABLES Final Resul t Performing Organization Address City/[facility] [place] [address] * Hepatitis C Antibody - ED (09/10/2025 3:39 AM EST) Hepatitis C Antibody Negative Negative 09/10/2025 4:54 AM EST [facility] Blood Venous blood specimen / Unknown Venipuncture / Unknown 09/10/2025 3:39 AM EST 09/10/2025 4:05 AM EST Maday Sandy Mina [facility] BLOOD ORDERABLES Final Resul t Performing Organization Address [facility] [place] [address] * Blood Culture (Aerobic/Anaerobet Set) (09/10/2025 3:39 AM EST) Only the most recent of2 resultswithin the time period is included. Pathologist [facility] Culture No growth at day 5 09/15/2025 6:01 AM EST [facility] Blood Structure of right hand / Unknown Venipuncture / Unknown 09/10/2025 3:39 AM EST 09/10/2025 5:23 AM EST Maday Enriquez LAB MICROBIOLOGY - GENERAL ORDER CALLUM Final Result Performing Organization Address [facility] [place] [address] * (ABNORMAL) PT-INR (09/10/2025 3:39 AM EST) Prothrombin Time 14.5(H) 12.0 - 14.3 sec 09/10/2025 4:13 AM EST [facility] INR 1.1 0.9 - 1.1 09/10/2025 4:13 AM EST [facility] Blood Venous blood specimen / Unknown Venipuncture / Unknown 09/10/2025 3:39 AM EST 09/10/2025 4:01 AM EST Narrative [facility] - 09/10/2025 4:13 AM EST OPTIMAL INR RANGES FOR PATIENT ON ORAL ANTICOAGULANT THERAPY Prevention of venous thromboembolism INR 2.0 to 3.0 In patients with heart disease: Atrial fibrillation INR 2.0 to 3.0 Valvular heart disease INR 2.0 to 3.0 Tissue heart valves INR 2.0 to 3.0 Mechanical prosthetic valves INR 2.5 to 3.5 Prevention of recurrent CO INR 2.5 to 3.5 us Maday Enriquez DO LAB BLOOD ORDERABLES Final Resul t [facility] [address] [place] [address] * CBC w/diff (09/10/2025 3:39 AM EST) WBC Count 7.98 3.70 - 10.30 10*3/uL LAB HEMATOLOGY METHOD 09/10/2025 4:04 AM EST [facility] RBC Count 4.28 3.90 - 5.20 10*6/uL LAB HEMATOLOGY METHOD 09/10/2025 4:04 AM EST [facility] HGB 12.7 11.2 - 15.7 g/dL LAB HEMATOLOGY METHOD 09/10/2025 4:04 AM EST [facility] HCT 36.7 34.0 - 45.0 % LAB HEMATOLOGY METHOD 09/10/2025 4:04 AM EST [facility] Platelet Count 185 155 - 369 10*3/uL LAB HEMATOLOGY METHOD 09/10/2025 4:04 AM EST [facility] MCV 86 79 - 98 fL LAB HEMATOLOGY METHOD 09/10/2025 4:04 AM EST [facility] MCH 29.7 26.0 - 32.0 pg LAB HEMATOLOGY METHOD 09/10/2025 4:04 AM EST [facility] MCHC 34.6 30.7 - 35.5 g/dL LAB HEMATOLOGY METHOD 09/10/2025 4:04 AM [facility] RDW 14.3 11.5 - 14.5 % LAB HEMATOLOGY METHOD 09/10/2025 4:04 AM [facility] MPV 10.4 8.8 - 12.5 fL LAB HEMATOLOGY METHOD 09/10/2025 4:04 AM [facility] nRBC 0.0 <=0.0 per 100 WBCs LAB HEMATOLOGY METHOD 09/10/2025 4:04 AM [facility] Differential Type Automated LAB HEMATOLOGY METHOD 09/10/2025 4:04 AM [facility] Neutrophils % 75 % LAB HEMATOLOGY METHOD 09/10/2025 4:04 AM [facility] Lymphocytes % 18 % LAB HEMATOLOGY METHOD 09/10/2025 4:04 AM [facility] Monocytes % 7 % LAB HEMATOLOGY METHOD 09/10/2025 4:04 AM [facility] Eosinophils % 0 % LAB HEMATOLOGY METHOD 09/10/2025 4:04 AM [facility] Basophils % 0 % LAB HEMATOLOGY METHOD 09/10/2025 4:04 AM [facility] Immature Granulocytes % 0 % LAB HEMATOLOGY METHOD 09/10/2025 4:04 AM [facility] Neutrophils Absolute 5.96 1.60 - 6.10 10*3/uL LAB HEMATOLOGY METHOD 09/10/2025 4:04 AM [facility] Lymphocytes Absolute 1.43 1.20 - 3.90 10*3/uL LAB HEMATOLOGY METHOD 09/10/2025 4:04 AM [facility] Monocytes Absolute 0.54 0.30 - 0.90 10*3/uL LAB HEMATOLOGY METHOD 09/10/2025 4:04 AM [facility] Eosinophils Absolute 0.01 0.00 - 0.50 10*3/uL LAB HEMATOLOGY METHOD 09/10/2025 4:04 AM [facility] Basophils Absolute 0.02 0.00 - 0.10 10*3/uL LAB HEMATOLOGY METHOD 09/10/2025 4:04 AM [facility] Immature Granulocytes Absolute 0.02 0.00 - 0.06 10*3/uL LAB HEMATOLOGY METHOD 09/10/2025 4:04 AM [facility] Blood Venous blood specimen / Unknown Venipuncture / Unknown 09/10/2025 3:39 AM EST 09/10/2025 4:01 AM EST Narrative [facility] - 09/10/2025 4:04 AM EST Therapeutic decision making should be based on absolute values, rather than percentages. Maday Du nEriquez LAB BLOOD ORDERABLES Final Resul t Performing Organization Address [facility] Co de Phone Number [facility] [address] [place] [address] * (ABNORMAL) C-Reactive protein (09/10/2025 3:39 AM EST) CRP, Plasma 32.9(H) <=8.0 mg/L 09/10/2025 4:35 AM EST [facility] Blood Venous blood specimen / Unknown Venipuncture / Unknown 09/10/2025 3:39 AM EST 09/10/2025 4:05 AM EST Narrative [facility] - 09/10/2025 4:35 AM EST This CRP test is appropriate for assessment of infection, systemic inflammation and/or tissue injury. To assess cardiovascular disease risk order high sensitivity CRP (CRPH). Maday Enriquez DO LAB BLOOD ORDERABLES Final Resul t Performing Organization Address [facility] Phone Number [facility] [address] [place] [address] * hCG qualitative (09/10/2025 3:39 AM EST) Test Negative Negative 09/10/2025 4:56 AM EST [facility] Blood Venous blood specimen / Unknown Venipuncture / Unknown 09/10/2025 3:39 AM EST 09/10/2025 4:05 AM EST Narrative [facility] - 09/10/2025 4:56 AM EST Reference Range: Males and non- females: Negative. Maday Enriquez LAB BLOOD ORDERABLES Final Resul t Performing Organization Address [facility] Co de Phone Number [facility] [address] [place] [address] * (ABNORMAL) CMP (09/10/2025 3:39 AM EST) Glucose, Plasma 104(H) 74 - 99 mg/dL 09/10/2025 4:35 AM [facility] BUN, Plasma 8 7 - 21 mg/dL 09/10/2025 4:35 AM [facility] Creatinine, Plasma 0.57(L) 0.60 - 1.10 mg/dL 09/10/2025 4:35 AM [facility] BUN/Creatinine Ratio 14 09/10/2025 4:35 AM [facility] Sodium, Plasma 133(L) 136 - 145 mmol/L 09/10/2025 4:35 AM [facility] Potassium, Plasma 3.9 3.6 - 4.9 mmol/L 09/10/2025 4:35 AM [facility] Chloride, Plasma 100 97 - 107 mmol/L 09/10/2025 4:35 AM [facility] CO2, Plasma 25 22 - 29 mmol/L 09/10/2025 4:35 AM [facility] Anion Gap 8 6 - 16 mmol/L 09/10/2025 4:35 AM [facility] Total Calcium, Plasma 8.8(L) 8.9 - 10.2 mg/dL 09/10/2025 4:35 AM [facility] Total Protein 7.2 6.3 - 7.9 g/dL 09/10/2025 4:35 AM [facility] Albumin, Plasma 3.9 3.5 - 5.2 g/dL 09/10/2025 4:35 AM [facility] AST, Plasma 45(H) 10 - 35 U/L 09/10/2025 4:35 AM [facility] ALT, Plasma 34 10 - 35 U/L 09/10/2025 4:35 AM [facility] Alkaline Phosphatase, Plasma 70 35 - 104 U/L 09/10/2025 4:35 AM [facility] Total Bilirubin, Plasma 1.0 0.2 - 1.1 mg/dL 09/10/2025 4:35 AM [facility] eGFRcr 127.9 mL/min/1.7 3m*2 09/10/2025 4:35 AM EST [facility] Comment:Reported eGFRcr in m L/min/1.73m2 is based the CKD-EPI 2020 equation that does not use a race coefficient. Blood Venous blood specimen / Unknown Venipuncture / Unknown 09/10/2025 3:39 AM EST 09/10/2025 4:05 AM EST us Maday Enriquez DO LAB BLOOD ORDERABLES Final Resul t [facility] [address] [place] [address] * CT NEURO OUTSIDE IMAGES (09/09/2025 10:51 PM EST) Only the most recent of2 resultswithin the time period is included. Anatomical Region Laterality Modality Computed Tomogra phy 09/09/2025 10:5 1 PM EST External Provider IMG CT PROCEDURES Edited Resul t - Final from Last 3 Months Insurance [employer] Care Teams Remediation Technician Relationship Specialty [place] [id number] PCP - General 09/12/25
--- OUTSIDE RECORDS SUMMARY | 2025-10-26 14:26 | XMS_ITS | Encounter Summary ---
Author Organization Healthcare Address [address] [place] [address] Care Team Providers Care Coding Clerks Supervisor Name Role Phone Johnathan Duenas MD Primary Care Provider Encounter Details Date Type Department Care Team (Latest Contact Info) Description 09/15/2025 Travel 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 Tobacco Use Types Packs/Day [...] someone who was sick? No / Unsure 09/15/2025 1:35 PM Missy Zee Do you have any of the following new or worsening symptoms? None of these 09/15/2025 1:35 PM Missy Zee * Travel Screening Question Answer Date of Assessment Author Have you traveled internationally or domestically in the last month? No 09/15/2025 1:35 PM EST Missy Call documented as of this encounter Mental Status * Communicable Disease Screening Question Answer Entry Date Author Have you been in contact with someone who was sick? No / Unsure 09/15/2025 1:35 PM EST Missy George Do you have any of the following new or worsening symptoms? None of these 09/15/2025 1:35 PM EST Missy Call * Travel Screening Question Answer Entry Date Author Have you traveled internationally or domestically in the last month? No 09/15/2025 1:35 PM EST Misys Call documented in this encounter Plan of Treatment Not on file documented as of this encounter Visit Diagnoses Not on filedocumented in this encounter Additional Health Concerns Assessment Noted Time A Body Mass Index follow-up plan has been documented for the patient 09/15/2025 2:39 PM EST documented as of this encounter Care Teams Coding Clerks Supervisor Relationship Specialty Start Date End Date Johnathan Duenas MD [phone] PCP - General 09/12/25 documented as of this encounter
--- OUTSIDE RECORDS SUMMARY | 2025-10-26 14:26 | XMS_ITS | Patient Health Record ---
Author Organization [facility] Address [address] [facility] [address] [place] [id number] Care Team Providers Care Guideman Name Role Phone Johnathan Duenas Primary Care Provider Adama Ballard Unavailable [phone] Radha Awad Unavailable [phone] Allergies No Known Allergies Results Component Value Reference Range Notes P-T4 Free (thyroxine) Reviewed date:01/27/2025 02:33:57 PM Interpretation:2.1 Performing Lab: Notes/Report: Test performed by [facility] [address] [place], [place] [address] , [address], [place] [address] Nick Brady MD, Director Of Community Life CLIA: [id number] Thyroxine Free (free T4) 2.10 0.86-1.76 ng/dL P-Total T3 Reviewed date:01/27/2025 02:33:57 PM Interpretation:Normal Performing Lab: Notes/Report: Test performed by [facility] [address] [place] [address] , [address], [place] [address] Nick Brady MD, Director Of [employer] CLIA: [id number] Total T3 1.98 0.80-2.00 ng/mL P-TSH Reviewed date:01/27/2025 02:33:57 PM Interpretation:0.01 Performing Lab: Notes/Report: Test performed by [facility] [address] [place] [address] , [address], [place] [address] Nick Brady MD, Director Of [employer] CLIA: [id number] TSH 0.01 0.43-5.25 mU/L P-T4 Free (thyroxine) Reviewed date:08/18/2025 02:54:03 PM Interpretation:Normal Performing Lab: Notes/Report: Test performed by [facility] , [address], [place] [address] Nick Brady MD, Director Of Community [employer] CLIA: [id number] Thyroxine Free (free T4) 1.09 0.86-1.76 ng/dL P-Total T3 Reviewed date:08/18/2025 02:54:12 PM Interpretation:Normal Performing Lab: Notes/Report: [facility] , [address], [place] [address] Nick Brady MD, Director Of Community Life CLIA: [id number] Total T3 1.31 0.80-2.00 ng/mL P-TSH Reviewed date:08/18/2025 02:54:22 PM Interpretation:Normal Performing Lab: Notes/Report: [facility] , [place] [address] Nick Brady MD, Director Of Community [employer] CLIA: [id number] TSH 2.59 0.43-5.25 mU/L CBC Fingerstick (in house) Reviewed date:06/02/2025 12:07:20 [...] Interpretation:Normal Performing Lab: Notes/Report: [facility] , [place] [address] Nick Brady MD, Director Of Community [employer] CLIA: [id number] Lipase 19.8 13.0-60.0 U/L P-Sed Rate (ESR) Reviewed date:05/13/2025 09:50:00 AM Interpretation:Normal Performing Lab: Notes/Report: Test performed by [facility], [address] , [address], [place] [address] Nick Brady MD, Director Of Community Life CLIA: [id number] Erythrocyte Sedimentation Rate (ESR), Automated 18 <26 mm/hr P-Deidre Dewey Virus (EBV) V CA Antibodies IgG IgM Reviewed date:05/13/2025 09:50:00 AM Interpretation:EBV IgG >8 Performing Lab: Notes/Report: Test performed by [facility] [address] [place] [address] , [address], [place] [address] Nick Brady MD, Director Of [employer] CLIA: [id number] Deidre Dewey Virus (EBV) VCA Antibodies IgG >8.0 <0.9 AI Deidre Dewey Virus (EBV) VCA Antibodies IgM 0.3 <0.9 AI P-Cytomegalovirus (CMV) Anti bodies, IgG/IgM Reviewed date:05/13/2025 09:49:59 AM Interpretation:Reactive Performing Lab: Notes/Report: Test performed by [facility] [address] [place] [address] , [place] [address] Nick Brady MD, Director Of [employer] CLIA: [id number] Cytomegalovirus (CMV) Antibody, IgG Reactive Non-Reactive This [...] 1.4 Performing Lab: Notes/Report: Test performed by [facility] [address] [place] [address] , [place] [address] Nick Brady MD, Director Of [employer] CLIA: [id number] Sodium 137 135-145 mmol/L Potassium 4.1 3.5-5.3 [...] Interpretation:Normal Performing Lab: Notes/Report: Test performed by [facility] [address] [place] [address] , [address], [place] [address] Nick Brady MD, Director Of [employer] CLIA: [id number] Antistreptolysin O AB 175.0 <20-200.0 IU/mL P-Amylase Reviewed date:05/13/2025 09:49:59 AM Interpretation:Normal Performing Lab: Notes/Report: Test performed by [facility] [address] [place] [address] , [address], [place] [address] Nick Brady MD, Director Of [employer] CLIA: [id number] Amylase 42 28-100 U/L CBC Fingerstick (in [...] Interpretation: Performing Lab: Notes/Report: strep test Neg xultrasound : thyroid Reviewed date:01/05/2025 01:01:13 PM Interpretation:homogenous thyroid Performing Lab: Notes/Report: homogenous thyroid P-TSH Reviewed date:01/05/2025 01:01:14 PM Interpretation:0.17 Performing Lab: Notes/Report: Test performed by [facility] [address] [place] [address] , [place] [address] Nick Brady MD, Director Of [employer] CLIA: [id number] TSH 0.17 0.43-5.25 mU/L P-Thyroid Antibody Panel (TA BS) Reviewed date:01/05/2025 01:01:14 PM Interpretation:Normal Performing Lab: Notes/Report: Test performed by [facility] [address] [place] [address] , [place] [address] Nick Brady MD, Director Of [employer] CLIA: [id number] Thyroid Peroxidase Antibody 17 <9-34 IU/mL An [...] Interpretation:Normal Performing Lab: Notes/Report: Test performed by [facility] [address] [place] [address] Dr[address] [place] [address] Nick Brady MD, Director Of [employer] CLIA: [id number] Thyroxine Free (free T4) 1.50 0.86-1.76 ng/dL [facility] Reviewed date:01/05/2025 01:01:14 PM Interpretation:CRP 0.71 Performing Lab: Notes/Report: Test performed by [facility] [address] [place] [address] , [address], [place] [address] Nick Brady MD, Director Of [employer] CLIA: [id number] Erythrocyte Sedimentation Rate (ESR), Automated 11 <26 mm/hr Rheumatoid Factor 12.0 <14.1 IU/mL C-Reactive Protein (CRP) 0.71 <0.50 mg/dL Antinuclear Antibodies (LATRICIA) Screen, Reflex LATRICIA 9 Panel Negative Negative This test is performed by Multiplex Bead Immunoassay methodology. Antinuclear Antibodies (LATRICIA) Result Note SEE COMMENT For positive Autoantibodies, please refer to the interpretive chart here: [email or web address]-suhl/w p-[email or web address] pretive-Chart.[email or web address] CCP Antibodies <0.5 <0.5-3.0 U/mL P-Comprehensive Metabolic Pa helio (CMP) Reviewed date:01/05/2025 01:01:13 PM Interpretation:Normal Performing Lab: Notes/Report: Test performed by [facility] [address] [place] [address] , [place] [address] Nick Brady MD, Director Of [employer] Life CLIA: [id number] Sodium 141 135-145 mmol/L Potassium 4.2 3.5-5.3 [...] Referring Provider Last Name Yulissa Referring Provider [facility]ice Referred Provider Herber Ojeda Referred Provider Specialty Dermatology General Notes Zuleyka Lin 2024 10:44:17 AM > faxed to Dr. Ojeda at [facility] Referral Priority Routine Diagnosis 1 Generalized abdomina l pain (R10.84) Diagnosis 2 Abdominal bloating ( R14.0) Diagnosis 3 Chronic nausea (R11. 0) [facility] Referring Provider First Name Johnathan Referring Provider Last Name Yulissa Referring Provider [facility] Referred Organization [facility] Referred Provider JOSHUA BERNARDO Referred Address [address] [place] [id number], Referred Provider Specialty Gastroentero logy General Notes Zuleyka Lin 2024 09:03:00 AM > faxed to [facility] Referral Priority Routine Medications Medication SIG (Take, Route, Fr equency, Duration) Notes Start Date End Date Status Ketoconazole 2 % 1 application Support Team Member ally Once a day 05/20/2025 Active Ondansetron [...] W/U Status Risk Notes Problem Essential hypertension (97288446) Essential hypertension (I10) Active confirmed Problem Hyperthyroidism (71719427) Hyperthyroidism (E05.90) Active confirmed Problem Mixed anxiety and depressive disorder (129555813) Depression with anxiety (F41.8) Active confirmed Problem Chronic pain (30066372) Other chronic pain (G89.29) Active confirmed Problem Thrombocytopenia (506752203) Thrombocytopenia (D69.6) Active confirmed Problem Chronic rhinitis (68695463) Rhinitis, unspecified type (J31.0) Active confirmed Problem Thyromegaly (3475174) Thyromegaly (E01.0) Active confirmed Problem Obesity (438904870) Non morbid o besity (E66.9) Active confirmed Problem Primary hypertension (51074464) Primary hypertension (I10) Active confirmed Vital Signs Heart Rate 80 /min 05/11/2025 Blood pressure diastolic 70 mm Hg 05/11/2025 Height 61.5 in 05/11/2025 Blood pressure systolic 110 mm Hg 05/11/2025 Weight 221 lbs 05/11/2025 BMI 41.08 kg/m2 05/11/2025 Encounters Encounter Location Date Provider Diagnosis [facility] [address] [place], [place] [id number] 11/10/2024 Johnathan Keene Essential hypertensi on I10 [facility] [address] [place], [place] [id number] 11/15/2024 Johnathan Keene Herpes zoster withou t complication B02.9 [facility] [address] [place], [place] [id number] 12/29/2024 Radha Crowdy Myalgia M79.10 ; Arthralgia, unspecified joint M25.50 ; Heart palpitations R00.2 ; Hair loss L65.9 ; Other fatigue R53.83 ; Elevated liver enzymes R74.8 ; Thyromegaly E01.0 and Rash R21 [facility] [address] [place], [place] [id number] 01/26/2025 Johnathan Keene Low TSH level R79.89 and Rash R21 [facility] [address] [place] [id number] 02/10/2025 Radha Crowdy Acute otitis media, right H66.91 ; Acute URI J06.9 and Body aches R52 [facility] [address] [place] [id number] 02/18/2025 Johnathan Keene Acute diarrhea R19.7 and Hyperthyroidism E05.90 [facility] [address] [facility] [address] [place], [place] [id number] 05/11/2025 Johnathan Keene Fever, unspecified R 50.9 ; Sorethroat J02.9 ; Epigastric abdominal pain R10.13 ; Heartburn R12 ; Thrombocytopenia D69.6 ; Family history of breast cancer in female Z80.3 and Skin rash R21 [facility] [address] [place], [place] [id number] 05/31/2025 Jhonathan Keene Thrombocytopenia D69 .6 [facility] [address] [place] [id number] 08/17/2025 Johnathan Keene Hyperthyroidism E05. 90 [facility] [address] [place] [id number] 01/03/2025 Radha Crowdy [facility] [address] [place] [id number] 01/27/2025 Johnathan Keene [facility] [address] [place] [id number] 02/07/2025 Johnathan Keene [facility] [address] [place] [id number] 02/15/2025 Johnathan Keene [facility] [address] [place] [id number] 02/16/2025 Johnathan Keene [facility] [address] [place] [id number] 02/28/2025 Johnathan Keene [facility] [address] [place] [id number] 05/13/2025 Johnathan Keene [facility] [address] [place] [id number] 05/20/2025 Johnathan Keene Skin rash R21 [facility] [address] [place] [id number] 05/20/2025 Johnathan Keene [facility] [address] [place] [id number] 05/26/2025 R Randall Nellie [facility] [address] [place] [id number] 06/13/2025 Johnathan Keene Rash R21 [facility] [address] [place] [id number] 06/30/2025 Johnathan Keene Generalized abdomina l pain R10.84 ; Abdominal bloating R14.0 and Chronic nausea R11.0 [facility] [address] [place] [id number] 01/28/2025 Johnathan Keene [facility] [address] [place], [place] [id number] 04/30/2025 Johnathan Keene Assessments Encounter Date Diagnosis (ICD Code) Assessment [...] FRANCES [employer]IG [employer] [address] [place] [address] [id number] ISABELA GODINEZ Self - patient is the insured Medical (General) History Surgical History Surgery Date(Month/Year) Tonsillectomy 2000 Bilateral Ankles 2019 Cholecystectomy 2017 [place] [facility] 2014 D & C 2019 Tubal Ligation 2024 Hospitalization History Reason Date(Month/Year)
--- OUTSIDE RECORDS SUMMARY | 2025-10-26 14:26 | XMS_ITS | Encounter Summary ---
[facility] Address [address] [place] [address] Care Team Providers Care Market Reporter Name Role Phone Provider, No Known Primary Care Provider Unavail able Reason for Visit * Reason Onset Date Comments Med Refill 10/27/2022 Encounter Details Date Type Department Care Team (Late st Contact Info) Description 10/27/2022 Refill [facility] [address] [place] [address] Henrique Barney MD [address] [facility] [address] [place] [address] 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 Tobacco Use Types Packs/Day Years [...] Date Recorded Retired Total Score 14 07/16/2021 [facility] [employer] - Occupational Stress [...] things needed for daily living? No 11/13/2020 [place] Depression Scale Answer Date Recorded [place] Depression Scale Total 5 06/05/2021 The thought [...] on filedocumented in this encounter Care Teams Market Reporter Relationship Specialty Start Date End Date Provider, No Known [facility] [place] [address] PCP - General 12/04/20 documented as of this encounter
--- OUTSIDE RECORDS SUMMARY | 2025-10-26 14:26 | XMS_ITS | Encounter Summary ---
Author Organization Healthcare Address [address] [place] [address] Care Team Providers Care Rigging Helper Name Role Phone Pcp, No Primary Care Provider Johnathan Avalos MD Primary Care Provider [phone] Encounter Details Date Type Department Care Team ([facility] st Contact Info) Description 09/09/2025 Orders Only External Location [address] [place] [address] Provider, External 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 Tobacco Use Types [...] Diagnosis Comments CT NEURO OUTSIDE IMAGES 09/09/2025 10:51 PM EST documented in this encounter Results * CT NEURO OUTSIDE IMAGES (09/09/2025 10:51 PM EST) Anatomical Region Laterality Modality Computed Tomogra phy 09/09/2025 10:5 1 PM EST us External Provider IMG CT PROCEDURES Edited Resul t - Final documented in this encounter Visit Diagnoses Not on filedocumented in this encounter Care Teams Rigging Helper Relationship Specialty Start Date End Date Pcp, Vilma [address] [place] [address] PCP - General Family Medicine 04/08/24 09/11/25 [place] [address] PCP - General 09/12/25 documented as of this encounter
--- NOTE | 2025-10-26 14:32 | US_ITS ---
PROCEDURE: US TRANSVAGINAL CLINICAL INDICATION: AUB COMPARISON: CT CT ABDOMEN PELVIS W CON from 10/28/2024 FINDINGS: Transvaginal sonographic images of the pelvis were obtained. UTERUS: 9.3cm x 5.8 cmx 5.9 cm anteverted with a combined endometrial thickness of 3.1mm. There is a nabothian cyst in the cervix measuring 0.9 cm x 0.9 cm. The myometrium has a heterogenous appearance. Possible adenomyosis. LEFT OVARY: 3.6 cm in length There is a dominant follicle measuring 1.9 cm. There are several small peripheral follicles. RIGHT OVARY: 3.3cmx 3.3cmx1.7 cm with a volume of 9.7ml. There are several small follicles. Both ovaries are seen and appear normal. Doppler flow to both ovaries are seen. There is no fluid in the cul-de-sac. IMPRESSION: 1. Anteverted, bulky uterus. The endometrium is thin measuring 3.1 mm. The myometrium has a heterogenous appearance and could be as a result of adenomyosis. 2. The left ovary is seen and appears normal. It has a 1.9 cm follicle and several peripheral follicles. The right ovary is seen and appears normal in size and has several small small follicles. 3. No fluid in the cul-de-sac. Dictated by: Itz Lamb MD 10/27/2025 07:41 Itz Lamb MD in OV 10/27/2025 07:41
== END 2025-10-26 23:59 | disposition home or self-care (01) ==
LOC: RAD 14:23
PROVIDERS: PCP Family Medicine; Visit Provider Obstetrics & Gynecology
DX: N85.4 Malposition of uterus (principal); N85.2 Hypertrophy of uterus; R93.89 Abnormal findings on diagnostic imaging of other specified body structures; N83.02 Follicular cyst of left ovary; N83.01 Follicular cyst of right ovary
CPT/HCPCS: 76830